=== PATIENT | female | born 1945 | race Caucasian/White ===

== ENCOUNTER 2018-10-09 08:38 | Observation (INO) ==
[2018-10-09] MEDS ORDERED: MIDAZOLAM HCL 1 MG/ML 2ML VIAL ONE (09:08)
[2018-10-09] MEDS ORDERED: NiCARDipine HCL INJ 2.5 MG/ML 10 ML AMP ONE (09:09)
[2018-10-09] MEDS ORDERED: fentaNYL citrate 100 MCG/2 ML VIAL ONE (09:09)
[2018-10-09] MEDS ORDERED: HEPARIN (PORCINE) 1000 UNIT/ML 10 ML (CATH LAB USE ONLY) ONE (09:09)
[2018-10-09] MEDS ORDERED: NITROGLYCERIN/D5W 100MCG/ML 20ML SYR ONE (09:09)
--- NOTE | 2018-10-09 09:16 | Pre Anesthesia Assessment ---
Date of Service October 09, 2018 Pre Sedation Assessment Vital Signs Temp Pulse Pulse Resp BP BP Pulse Ox 10/10/18 07:42 36.8 C 62 18 133/73 94 10/10/18 03:10 36.7 C 72 18 126/83 91 10/10/18 00:00 64 10/09/18 23:22 37.0 C 66 16 123/75 90 10/09/18 19:04 36.9 C 66 18 104/62 91 10/09/18 15:45 36.7 C 67 18 121/71 91 10/09/18 14:45 36.8 C 69 17 124/70 90 10/09/18 13:46 37.0 C 65 18 120/72 93 10/09/18 12:49 36.6 C 64 16 100/63 95 10/09/18 12:20 36.6 C 68 18 97/60 L 95 10/09/18 11:48 36.5 C 62 16 124/74 94 10/09/18 11:30 36.6 C 60 16 110/65 94 10/09/18 11:15 36.6 C 63 18 110/59 L 93 10/09/18 11:03 36.4 C L 60 16 119/60 94 10/09/18 11:00 36.6 C 62 18 113/65 92 10/09/18 10:45 62 Cardiovascular RRR, no murmur, no edema Respiratory normal respiratory effort, lungs clear to auscultation Pre-Sedation Airway Assessment Smoking Status: Current every day smoker Short, Thick Neck: No Oral Cavity: + WNL Mallampati Class: IV ASA: ASA3 NPO Status Date of Last Intake of Fluids: 10/08/18 Time of Last Intake of Fluids: 18:00 Date of Last Intake of Solid Food: 10/08/18 Time of Last Intake of Solid Foods: 18:00 Procedure Planning Contraindications for Sedation: none Current Medications Reviewed: Yes Notes The planned sedation has been discussed with the patient. Informed Consent was obtained. I have identified the patient, determined the appropriateness of sedation and have assessed the patient immediately prior to the procedure. All medicine(s) and interventions are by my order.
--- NOTE | 2018-10-09 09:16 | History & Physical Bridge Note ---
Date of Service October 09, 2018 History & Physical Bridge Note I have examined the patient, reviewed the History & Physical and in the interval since the performance of the History & Physical I have noted the following changes of clinical significance: no changes noted
--- NOTE | 2018-10-09 10:09 | Post Anesthesia Assessment ---
Date of Service October 09, 2018 Post Sedation Assessment Vital Signs Temp Pulse Pulse Resp BP BP Pulse Ox 10/10/18 07:42 36.8 C 62 18 133/73 94 10/10/18 03:10 36.7 C 72 18 126/83 91 10/10/18 00:00 64 10/09/18 23:22 37.0 C 66 16 123/75 90 10/09/18 19:04 36.9 C 66 18 104/62 91 10/09/18 15:45 36.7 C 67 18 121/71 91 10/09/18 14:45 36.8 C 69 17 124/70 90 10/09/18 13:46 37.0 C 65 18 120/72 93 10/09/18 12:49 36.6 C 64 16 100/63 95 10/09/18 12:20 36.6 C 68 18 97/60 L 95 10/09/18 11:48 36.5 C 62 16 124/74 94 10/09/18 11:30 36.6 C 60 16 110/65 94 10/09/18 11:15 36.6 C 63 18 110/59 L 93 10/09/18 11:03 36.4 C L 60 16 119/60 94 10/09/18 11:00 36.6 C 62 18 113/65 92 10/09/18 10:45 62 Discharge Sedation Level of Care: Fast Track Phase II Post Sedation Plan On clinical assessment, the patient appears to have tolerated the sedation without complications. Patient is recovering as anticipated. Patient will continue to be monitored by nursing and may be discharged when sedation discharge criteria are met per below protocol. Upon Completions of procedure and additional 15 minutes continue every 5 minute vital signs and the P.A.R. score; then discharge to a Phase I or Fast Track to Phase II per the following guidelines: * Discharge Patient to appropriate Phase II area if PAR is 8 or greater or return to pre- procedure baseline. The post - procedure orders will be as directed. * If PAR score is less than 8 or not return to pre-procedure baseline then patient will follow Phase I monitoring till PAR is reached for Phase II. The Phase I may be done in procedure room or may call to secure a Phase I area. * If naloxone or flumazenil are used for reversal, hold in Phase I for continued monitoring from when last reversal dose was given for a minimum of 60 minutes or longer pending the nurse and/or physician discretion of patient condition before discharge to Phase II. Please call the Sedation Physician to re-evaluate and complete post-note for discharge to Phase II area. Do NOT discharge from procedure sedation or Phase 1 until post- sedation evaluation note is complete by procedure /sedation MD Sedation Discharge Instructions to be given to the patient at discharge to home.
--- NOTE | 2018-10-09 10:21 | Cardiac Catheterization ---
Cardiac Cath Procedure Full Procedure Date October 09, 2018 Pre-Procedure Diagnosis Pre-Procedure Diagnosis: Angina AUC Score AUC Score: 7 Post-Procedure Diagnosis Post-Procedure Diagnosis: Severe CAD Procedure(s) Performed Procedure(s) Performed: Coronary Angiography and Left Heart Cath Manager Strategy & Account Anuj Naqvi DO Associate Accountant(s) Joe RTR Estimated Blood Loss Estimated Blood Loss: 5cc Summary of Findings 75% mid RCA 30% mid LAD bridging 40% proximal LPL 2 Hemodynamics Rest Ao:: 106/45/70 Final Ao: 114/44/72 LV: 111/8-6/6 Recommendations Recommendations: PCI without planned CABG Specimens Specimens: None Radiation Exposure (mGy) 783 Contrast (mls) 45 Fluids (cc crystalloids) Fluids (cc crystalloids): 50cc Nss Anesthesia Moderate sedation, start 0931, End 1007. Sedation monitor Kesha JO. Procedural Complication(s) None Disposition patient remained in [facility] for PCI with Dr. 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 Cardiac Status Clinical evaluation leading to the procedure CAD Presenation: Unstable angina Anginal Classification: CCS III Heart Failure: No Imaging Studies Past 6 Months: Yes Stress Studies Past 6 Months: No Coronary Anatomy Dominant: Right Left Main (% Stenosis): Normal LAD (% Stenosis): Mid (30% bridging) D1 (% Stenosis): Normal D2 (% Stenosis): Ostial (20%) D3 (% Stenosis): Normal Circumflex (% Stenosis): Normal OM1 (% Stenosis): Normal OM2 (% Stenosis): Normal L PL1 (% Stenosis): Normal L PL2 (% Stenosis): Proximal (40%) RCA (% Stenosis): Proximal (20%) and Distal (30%) R PDA (% Stenosis): Normal R PL1 (% Stenosis): Normal AM (% Stenosis): Normal Diagnostic Physicians Name: Anuj Naqvi DO Status: Elective Closure Device Percutaneous Entry Location: Radial Closure Device: Radial Band Recommendations: PCI without planned CABG Intraprocedure Events Significant Disection: No Perforation: No
[2018-10-09] MEDS ORDERED: CLOPIDOGREL BISULFATE 300 MG TAB ONE (10:30)
--- NOTE | 2018-10-09 10:33 | Post Anesthesia Assessment ---
Date of Service October 09, 2018 Post Sedation Assessment Vital Signs Temp Pulse Resp BP Pulse Ox 10/09/18 08:50 36.6 C 71 16 148/59 H 95 Recovery Score Activity: Moves 4 extremities Respiration: Deep Breath/Cough Circulation: +/-20% PreAnes Value Consciousness: Fully Awake Oxygen Saturation: O2 needed for >90% Discharge Sedation Level of Care: Fast Track Phase II Post Sedation Plan On clinical assessment, the patient appears to have tolerated the sedation without complications. Patient is recovering as anticipated. Patient will continue to be monitored by nursing and may be discharged when sedation discharge criteria are met per below protocol. Upon Completions of procedure and additional 15 minutes continue every 5 minute vital signs and the P.A.R. score; then discharge to a Phase I or Fast Track to Phase II per the following guidelines: * Discharge Patient to appropriate Phase II area if PAR is 8 or greater or return to pre- procedure baseline. The post - procedure orders will be as directed. * If PAR score is less than 8 or not return to pre-procedure baseline then patient will follow Phase I monitoring till PAR is reached for Phase II. The Phase I may be done in procedure room or may call to secure a Phase I area. * If naloxone or flumazenil are used for reversal, hold in Phase I for continued monitoring from when last reversal dose was given for a minimum of 60 minutes or longer pending the nurse and/or physician discretion of patient condition before discharge to Phase II. Please call the Sedation Physician to re-evaluate and complete post-note for discharge to Phase II area. Do NOT discharge from procedure sedation or Phase 1 until post- sedation evaluation note is complete by procedure /sedation MD Sedation Discharge Instructions to be given to the patient at discharge to home.
[2018-10-09] MEDS ORDERED: ACETAMINOPHEN 325 MG TAB PO PRN (10:42)
[2018-10-09] MEDS ORDERED: ONDANSETRON INJ 2 MG/ML 2 ML VIAL IV PRN (10:42)
--- NOTE | 2018-10-09 10:42 | Cardiac Catheterization ---
Cardiac Cath Procedure Full Procedure Date October 09, 2018 Pre-Procedure Diagnosis Pre-Procedure Diagnosis: Angina AUC Score AUC Score: 7 Post-Procedure Diagnosis Post-Procedure Diagnosis: Severe CAD and Successful PCI Procedure(s) Performed Procedure(s) Performed: Coronary Angiography and Drug Eluting Stent Video Game Programmer Phong Marquez MD Extension Division Director(s) Joe RTSavita Estimated Blood Loss Estimated Blood Loss: 10 Medication(s) Medication(s): Clopidogrel, Fentanyl, Heparin, Nitroglycerin and Versed Summary of Findings Indication: Refractory angina Access: 6 Fr right radial artery Catheters: JR4 guide Findings: For full details of patient's coronary angiography please cath report dictated by Dr. Naqvi. Briefly, patient found to have severe single vessel disease with a focal 75% stenosis in the mid RCA. Decision to proceed with PCI. -- PCI -- Antithrombotic therapy: Heparin, clopidogrel Procedure: RCA cannulated with JR4 guide BMW wire passed across lesion into distal vessel Mid RCA lesion predilated with 2.5 compliant balloon Dilated lesion stented with 2.75 x 12 mm Xience Tracy Stent post-dilated with stent balloon IC vasodilators administered for spasm Post procedure SHINE 3 flow, stent well expanded with minimal residual stenosis and no apparent cardiac complications. Arterial Closure: TR band Summary: 1. Successful PCI of mid RCA with single drug-eluting stent (2.75 x 12 mm Xience Tracy). Recommendations: To PCU for continued monitoring Loaded with clopidogrel 600 mg in photo lab specialist Continue aspirin/clopidogrel and anticoagulation with Coumadin for 1 week. Then can drop aspirin to continue Coumadin, clopidogrel for at least 6 months. 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: Press Catcher Cardiac Status Clinical evaluation leading to the procedure CAD Presenation: Stable angina Anginal Classification: CCS III Heart Failure: No Cardiogenic Shock within 24 Hours: No Cardiac Arrest within 24 Hours: No Imaging Studies Past 6 Months: Yes Stress Studies Past 6 Months: Yes Stress Echocardiogram: Yes - Negative Diagnostic Physicians Name: Phong Marquez MD Status: Elective Closure Device Percutaneous Entry Location: Radial Closure Device: Radial Band Recommendations: PCI without planned CABG PCI Indication: Angina despite med therapy Lesion Segment Name: mid RCA Culprit Artery: Yes Stenosis Prior to Rx (%): 75 Chronic Total Occlusion: No IVUS: No FFR: No Pre-Procedure SHINE Flow: 3 Previously Treated Lesion: No Lesion Complexity: Non-High/Non-C Lesion Length (mm): 10 Thrombus Present: No Bifurcation Lesion: No Guidewire Across Lesion: Stenosis Post-Procedure (%): 0 Post-Procedure SHINE Flow: 3 Devices(s) Deployed: Yes Yes Intraprocedure Events Significant Disection: No Perforation: No
[2018-10-09] MEDS ORDERED: SODIUM CHLORIDE 0.9% 1000ML 1,000 ML IV SCH (10:45)
[2018-10-09] MEDS ORDERED: NITROGLYCERIN SL 0.4 MG/TAB TAB SL PRN (11:29)
[2018-10-09] MEDS ORDERED: WARFARIN SOD 5 MG TAB PO SCH ×2 (16:00→21:00)
[2018-10-09] MEDS: ADVAIR 230/21 INH SCH (19:15)
[2018-10-09] MEDS ORDERED: MONTELUKAST SODIUM 10 MG TABLET PO SCH (21:00)
[2018-10-09] MEDS ORDERED: ATORVASTATIN 20 MG TAB PO SCH (21:00)
[2018-10-09] MEDS ORDERED: METOPROLOL SUCC 25MG EXT REL TAB PO SCH (21:00)
[2018-10-10 06:36] LABS: Basophils # (auto) 0.01 K/uL (0-0.2); Basophils % (auto) 0.1 %; Eosinophils % (auto) 1.3 %; Hematocrit (blood only) 42.4 % (37-47); Hemoglobin 14.2 g/dL (12.0-16.0); Immature Granulocytes # (auto) 0.02 K/uL (0.00-0.02); Immature Granulocytes % (auto) 0.3 %; Mean Corpuscular Hgb Conc 33.5 g/dL (32-36); Mean Corpuscular Volume 88.5 fL (80-100); Mean Platelet Volume 11.8 fL (7.4-10.4); Monocytes # (auto) 0.52 K/uL (0.11-0.59); Monocytes % (auto) 6.9 %; Neutrophils # (auto) 4.14 K/uL (1.4-6.5); Neutrophils % (auto) 55.4 %; Platelet Count 128 K/uL (130-400); RDW Coefficient of Variation 13.6 % (11.5-14.5); Red Blood Count 4.79 M/uL (4.2-5.4); White Blood Count 7.49 K/uL (4.8-10.8)
[2018-10-10 07:08] LABS: BUN Creatinine Ratio 17.3 (10-20); Calcium 8.6 mg/dl (8.5-10.1); Creatinine Clr Calc Pharmacy 63.5 ml/min; Est GFR (African American) 77.7; Potassium 3.8 mmol/L (3.5-5.1)
[2018-10-10 07:43] VITALS: BP 133/73; TEMP 98.2; O2SAT 94
[2018-10-10] MEDS: ADVAIR 230/21 INH SCH (07:52)
[2018-10-10] MEDS ORDERED: ASPIRIN 81 MG ECTAB PO SCH (09:00)
[2018-10-10] MEDS ORDERED: AMLODIPINE BESYLATE 5 MG TAB PO SCH (09:00)
[2018-10-10] MEDS ORDERED: CLOPIDOGREL BISULFATE 75 MG TAB PO SCH (09:00)
[2018-10-10] MEDS ORDERED: METOPROLOL SUCC 50MG EXT REL TAB PO SCH (09:00)
[2018-10-10] MEDS ORDERED: METOPROLOL SUCC 25MG EXT REL TAB PO SCH (09:00)
--- NOTE | 2018-10-10 09:16 | Cardiology Progress Note ---
Date of Service October 10, 2018 Assessment & Plan (1) CAD (coronary artery disease), [place] coronary artery: No recurrent chest discomfort overnight. Drug-eluting stent implanted to the right coronary artery without complication. (2) S/P right coronary artery (RCA) stent placement: Patient will continue aspirin, Plavix, and warfarin for 1 week. Aspirin will be then discontinued and she will continue Plavix plus warfarin. Prescription for Plavix sent to [facility] in [place]. Instructed to take 5 mg of warfarin today and tomorrow then resume her normal schedule. Follow-up with the anticoagulation clinic as scheduled. Post catheterization activity restrictions discussed at length. Patient voiced understanding and agreement. (3) Atrial fibrillation: Remains in sinus rhythm on telemetry. Restart warfarin as noted above. (4) Tobacco abuse: Smoking cessation advised. Subjective Patient seen and examined at the bedside. Feeling well from a cardiovascular perspective. No chest discomfort or unusual shortness of breath. Remains in sinus rhythm on telemetry. Mild ecchymosis of her right anterior wrist noted. No signs/symptoms of GI/ blood loss. Denies orthopnea, PND, lower extremity edema. Requesting discharge if possible. Prefers medications be sent to the [facility] in [place]. Offers no concerns/complaints at this time. Review of Systems Review of Systems: All systems reviewed & are unremarkable except as noted in HPI & below Physical Exam Physical Exam: General: NAD, AAO x3, well nourished. HEENT: Normocephalic. Atraumatic. Conjunctiva pink, no scleral icterus. Neck: No carotid bruits, the carotid upstrokes are brisk. No JVD. No HJR Heart: Regular normal S-1 and S-2 no S-3 or S-4 gallop. No murmurs or rub appreciated. PMI is not displaced. No RV heave. Lungs: Clear bilateral without rales , rhonchi, or wheeze. Abdomen: Normal bowel sounds. Soft. Nontender. No masses or organomegaly. No abdominal bruits. Extremities: 2 cm area of right anterior wrist ecchymosis. Right radial pulse is palpable. No hematoma. No clubbing, cyanosis, or edema. Pulses: Dorsa lis pedis =2/4, posterior tibial=2/4. Neuro: Cranial nerves grossly intact. No focal motor deficit. Results & Data Vital Signs (Past 12 Hours) Vital Signs Temp Pulse Pulse Resp BP BP Pulse Ox 10/10/18 07:42 36.8 C 62 18 133/73 94 10/10/18 03:10 36.7 C 72 18 126/83 91 10/10/18 00:00 64 10/09/18 23:22 37.0 C 66 16 123/75 90 Laboratory Results Laboratory Results - last 24 hr 10/09/18 10/10/18 10/10/18 09:29 06:22 06:22 WBC 7.49 RBC 4.79 Hgb 14.2 Hct 42.4 MCV 88.5 MCH 29.6 MCHC 33.5 RDW Std Deviation 44.0 RDW Coeff of Anais 13.6 Plt Count 128 L MPV 11.8 H Immature Gran % (Auto) 0.3 Neut % (Auto) 55.4 Lymph % (Auto) 36.0 Lawrence % (Auto) 6.9 Eos % (Auto) 1.3 Baso % (Auto) 0.1 Immature Gran # (Auto) 0.02 Neut # (Auto) 4.14 Lymph # (Auto) 2.70 Lawrence # (Auto) 0.52 Eos # (Auto) 0.10 Baso # (Auto) 0.01 Activ Coag Time Kaolin 312 H Sodium 142 Potassium 3.8 Chloride 108 H Carbon Dioxide 30 Anion Gap 4.0 BUN 15 Creatinine 0.85 Est Cr Clr Drug Dosing 63.5 Est GFR ( Amer) 77.7 Est GFR (Non-Af Amer) 67.0 BUN/Creatinine Ratio 17.3 Glucose 92 Calcium 8.6 (1) CAD (coronary artery disease), [place] coronary artery [place] vs. transplanted heart: [place] heart Associated angina: with unstable angina Qualified Code(s): I25.110 - Atherosclerotic heart disease of [place] coronary artery with unstable angina pectoris (2) Atrial fibrillation Atrial fibrillation type: paroxysmal Qualified Code(s): I48.0 - Paroxysmal atrial fibrillation
--- NOTE | 2018-10-10 09:22 | Discharge Summary ---
Date of Service October 10, 2018 Admission HPI Patient presented to outpatient clinic with recurrent chest discomfort. She used 3 sublingual nitroglycerin with resolution of pain. She has had several episodes of angina over the past 12 months. Lexiscan nuclear stress test performed December 2017 negative for inducible ischemia. She is referred for diagnostic catheterization for further evaluation. Admission Exam Per Admitting Provider General: NAD, AAO x3, well nourished. HEENT: Normocephalic. Atraumatic. Conjunctiva pink, no scleral icterus. Neck: No carotid bruits, the carotid upstrokes are brisk. No JVD. No HJR Heart: Regular normal S-1 and S-2 no S-3 or S-4 gallop. No murmurs or rub appreciated. PMI is not displaced. No RV heave. Lungs: Clear bilateral without rales , rhonchi, or wheeze. Abdomen: Normal bowel sounds. Soft. Nontender. No masses or organomegaly. No abdominal bruits. Extremities: No clubbing, cyanosis, or edema. Pulses: radial=2/4, Dorsalis pedis =2/4, posterior tibial=2/4. Neuro: Cranial nerves grossly intact. No focal motor deficit. Principal Diagnosis Principal Diagnosis Unstable angina. S/p AME to RCA. Paroxysmal atrial fibrillation. Discharge Exam [facility] Mallampati Class: IV Respiratory normal respiratory effort, lungs clear to auscultation Cardiovascular RRR, no murmur, no edema Discharge Data Allergies Allergy/AdvReac Type Severity Reaction Status Date / Time valsartan Allergy Severe Edema Verified 06/16/12 16:28 face/lips/tongue. NAI Inhibitors Allergy Unknown Cough. Verified 06/16/12 16:28 nickel Allergy Unknown Rash. Verified 06/16/12 16:28 FLUARIX Allergy Unknown Unknown. Uncoded 06/16/12 16:28 Consultations 10/09/18 10:45 Consult Cardiac Rehabilitation Routine Procedures Performed Operation Date: 10/09/18 09:30 Actual Procedures p Cath, Left with Cors and Vent - DO kyle Ponce Cineradiography w/Routine Exam - DO kyle Ponce Drug Eluting Stent SGl Vessel - Enrrique Marquez MD Ordered Studies 10/09/18 07:14 CL Cath Imgs for PACS use only Stat Hospital Course (1) S/P right coronary artery (RCA) stent placement: Continue aspirin, Plavix, and warfarin for 1 week, then discontinue aspirin. Continue warfarin plus Plavix thereafter. (2) Atrial fibrillation: Patient remained in sinus rhythm during hospitalization. Warfarin restarted. Follow-up with anticoagulation clinic as scheduled. Total Time Total Time Spent Total Time Spent (In Minutes): 35 Discharge Plan Discharge Items Patient Disposition: Home - Self-Care Reason For Visit: RCA PCI Discharge Diagnosis: Coronary artery disease status post drug-eluting stent implantation to the right coronary artery. Condition: Good Discharge Goals: Improve disease control Activity: Per 'Additional Instructions' section Non-emergency contact: Primary Care Provider and Metal Ceiling Builder Call non-emergency contact if: your pain is not controlled and your pain is unusual for you Follow-up/Referrals: Khoa Hui MD [Primary Care Provider] - nAuj Naqvi DO [Metal Ceiling Builder] - Diet: Heart Healthy Addtl Provider Instructions: ACTIVITY RECOMMENDATIONS: Excess manipulation of the wrist should be avoided for the next 24-48 hours. * No lifting over 2 pounds (approximately a 1/2 gallon of milk) with the utilized arm for 24 hours. * No strenuous activity such as bowling or tennis for 3 days. * Keep the site of the procedure covered with a bandage for 24 hours. *You may shower the day after the procedure. Do not take a tub bath or submerge the puncture site in water for the next 3 days. *Do not operate any motorized equipment for 3 days. SPECIAL CARE INSTRUCTIONS: The site may be slightly bruised and sore following your procedure. Should any of the following occur, contact the Dr. who performed your procedure. 1. Redness/inflammation, swelling, chills, or fever, or colored drainage at procedure site within 3-7 days after your procedure. 2. Coldness, discoloration, ongoing numbness, severe pain, or swelling. Expect mild tingling of hand and tenderness at the puncture site for up to three days. If this persists beyond three days, or other symptoms develop, notify the Dr. who performed your procedure. BLEEDING: If the procedure site on your wrist begins to bleed, do not panic 1. Place 1 or 2 fingers firmly just slightly above the insertion site to stop the bleeding. You may be able to feel your pulse as you hold pressure. 2. Lift your finger after 5 minutes to see if the bleeding has stopped. 3. Once the bleeding has stopped, gently wipe the wrist area clean with a bandage. * If the bleeding from your wrist does not stop after 10 minutes, or if there is a large amount of bleeding or spurting, call 911 (do not drive yourself to the hospital). SKIN IRRITATION: * You may experience some redness and/or swelling in the area where radiation was administered. If any skin irritation occurs, please contact your family physician. FOLLOW UP VISIT: Keep any scheduled doctor appointments. Prescriptions: New clopidogrel 75 mg Tablet 75 mg PO QAM Qty: 34 RF: 0 Continued Aspirin Enteric Coated (Ecotrin Or Generic) 81 MG tablet 81 mg PO DAILY Qty: 0 RF: 0 Atorvastatin (Atorvastatin Calcium) 20 MG tablet 20 mg PO PM Qty: 30 RF: 3 Nitroglycerin (Nitrostat) 0.4 MG/1 TAB SUBLING TAB 0.4 mg Sublingual PRN PRN (Reason: Chest Pain) Qty: 30 RF: 0 Amlodipine Besylate 5 MG tablet 5 mg PO QAM Qty: 0 RF: 0 FLUTICASONE-SALMETEROL 230/21 MCG (ADVAIR HFA 230/21 MCG) 1 AER AER 2 puff Inhalation BID Qty: 0 RF: 0 Metoprolol Succ (Toprol Xl) (Toprol-Xl) 50 MG GNIVV-XVA-HPL 75 mg PO QAM Qty: 30 RF: 0 Warfarin Sod (Coumadin) 5 MG tablet 2.5 - 5 mg PO UD Qty: 0 RF: 0 montelukast 10 mg Tablet 10 mg PO PM RF: 0 furosemide 20 mg Tablet 20 mg PO DAILY RF: 0 Stand-Alone Forms: [facility] Discharge Orders: Discharge Order (Routine); Ordered 10/10/18 Ordered By: Anuj Naqvi Admission Data Admit Date/Time: 10/09/18 10:09 Attending Provider: Anuj Naqvi Admit Provider: Anuj Naqvi Primary Care Provider: Khoa Hui Service: Telemetry Other Pending Studies at Discharge: No
[2018-10-10 10:02] VITALS: PULSE 71
== END 2018-10-10 10:44 | disposition home or self-care (01) ==
LOC: CC 08:38 → 2S 08:38

== ENCOUNTER 2018-10-18 13:06 | Inpatient (IN) ==
--- OUTSIDE RECORDS SUMMARY | 2018-10-18 13:10 | External Medical Summary | Continuity of Care Document ---
:1945 Author Name Ajit Mccall, Provider Address Unavailable Unavailable , Care Team Providers Name Role Phone Phong Marquez [email or web address] PCP, UNKNOWN Unavailable Unavailable Problems Active medical history not documented Allergies and Adverse Reactions Allergy history not documented Medications Medications not documented Procedures Procedures not documented Immunizations Immunizations not documented Plan of Treatment Planned Observations Planned Goals not documented Results No Known Results Results not documented
[2018-10-18] MEDS ORDERED: dilTIAZem HCl 5 MG/ML 5 ML VIAL IV ONE (13:14)
[2018-10-18] MEDS ORDERED: dilTIAZem HCl 125 MG in DEXTROSE 5% 100 ML IV SCH (13:15)
[2018-10-18] MEDS ORDERED: dilTIAZem HCl 5 MG/ML 5 ML VIAL IV STA (13:15)
[2018-10-18] MEDS ORDERED: SODIUM CHLORIDE 0.9% 1000ML 1,000 ML IV SCH (13:15)
[2018-10-18] MEDS ORDERED: LORazepam 2 MG/4 ML VIAL ONE (13:21)
[2018-10-18 13:29] LABS: Basophils # (auto) 0.01 K/uL (0-0.2); Basophils % (auto) 0.1 %; Eosinophils # (auto) 0.06 K/uL (0-0.5); Eosinophils % (auto) 0.7 %; Hematocrit (blood only) 40.9 % (37-47); Hemoglobin 13.4 g/dL (12.0-16.0); Immature Granulocytes # (auto) 0.01 K/uL (0.00-0.02); Immature Granulocytes % (auto) 0.1 %; Lymphocytes # (auto) 2.04 K/uL (1.2-3.4); Lymphocytes % (auto) 25.3 %; Mean Corpuscular Hgb Conc 32.8 g/dL (32-36); Mean Corpuscular Volume 88.1 fL (80-100); Monocytes # (auto) 0.81 K/uL (0.11-0.59); Neutrophils # (auto) 5.13 K/uL (1.4-6.5); Neutrophils % (auto) 63.8 %; Platelet Count 156 K/uL (130-400); RDW Coefficient of Variation 13.7 % (11.5-14.5); RDW Standard Deviation 44.5 fL (36.4-46.3); Red Blood Count 4.64 M/uL (4.2-5.4); White Blood Count 8.06 K/uL (4.8-10.8)
--- NOTE | 2018-10-18 13:41 | XRay Report ---
XR chest 1V portable CLINICAL HISTORY: Chest Pain dyspnea COMPARISON STUDY: 05/15/2015 FINDINGS: The bones soft tissues and hemidiaphragms are normal. The cardiomediastinal silhouette is n ormal. The lungs are clear. The pulmonary vasculature is normal. IMPRESSION: Negative chest. The above report was generated using voice recognition software. It may contain grammatical, syntax or spelling errors. Electronically signed by: Nicola Latham M.D. 10/18/2018 1:40 PM
[2018-10-18 13:44] LABS: INR 1.8 (0.9-1.1); Partial Thromboplastin Ratio 1.2; Partial Thromboplastin Time 32.8 Seconds (21.0-31.0); Prothrombin Time 17.3 Seconds (9.0-12.0)
[2018-10-18 13:45] LABS: BUN Creatinine Ratio 21.9 (10-20); Blood Urea Nitrogen 21 mg/dl (7-18); Carbon Dioxide 26 mmol/L (21-32); Chloride 103 mmol/L (98-107); Creatinine Clr Calc Pharmacy 55.7 ml/min; Est GFR (African American) 67.1; Est GFR (Non-African American) 57.9; Glucose 115 mg/dl (70-99); Potassium 3.7 mmol/L (3.5-5.1); Sodium 138 mmol/L (136-145)
[2018-10-18 13:54] LABS: Troponin I < 0.015 ng/ml (0-0.045)
[2018-10-18] MEDS ORDERED: OPTIRAY 320 125ml IV PRN (13:54)
--- NOTE | 2018-10-18 14:16 | CT Scan Report ---
CT ANGIOGRAPHY OF THE CHEST, PULMONARY EMBOLUS PROTOCOL CLINICAL HISTORY: Shortness of breath. COMPARISON STUDY: Chest CT April 27, 2008. Chest radiograph performed earlier today. TECHNIQUE: Following IV administration of 120 mL of Optiray-320, helical axial images of the chest we re obtained utilizing the pulmonary embolus protocol. Maximal intensity projections and sagittal and coronal reformats were viewed on an independent 3D workstation. IV contrast was administered withou t complication. Automated exposure control was utilized for the study. A dose lowering technique wa s utilized adhering to the principles of ALARA. CT DOSE: 337.08 mGy.cm FINDINGS: No pulmonary emboli are identified. There is no evidence for thoracic aortic dissection. T here is moderate plaque within the thoracic aorta. The heart is mildly enlarged. There is no pericard ial effusion. Central airways are patent. Severe emphysema is noted. No consolidation to suggest pneu monia. Subpleural opacities reflect atelectasis. Bony thorax is unremarkable. A few hypodense hepatic lesions are suboptimally assessed on this exam but favor cysts. There is a small hiatal hernia. IMPRESSION: 1. No pulmonary emboli identified. 2. Severe emphysema. No consolidation to suggest pneumonia. Electronically signed by: Félix Edwards M.D. 10/18/2018 2:15 PM
[2018-10-18 14:17] LABS: iSTAT Hemoglobin 13.6 g/dl (12.0-16.0); iSTAT Ionized Calcium 1.04 mmol/l (1.12-1.32); iSTAT Potassium 3.7 mEq/L (3.3-5.0)
[2018-10-18 14:21] LABS: Magnesium 1.8 mg/dl (1.8-2.4)
--- NOTE | 2018-10-18 14:26 | Cardiology Consultation ---
Date of Consultation October 18, 2018 Assessment & Plan (1) Atrial fibrillation with rapid ventricular response: Patient presented to the emergency room with recurrent chest discomfort and atrial fibrillation with rapid ventricular response. Initially cardioverted however remains in atrial fibrillation. Rate control has improved currently with heart rates ranging from 100 to 115 bpm. She remains hypotensive with IV fluid infusing. She is mentating appropriately. Recommend discontinuation of metoprolol and initiation of sotalol loading. Duration of atrial fibrillation less than 6 hours at this time. Intravenous heparin ordered. INR is mildly subtherapeutic. Search for alternative causes of hypotension in progress including blood cultures, and urinalysis. Suspect mild volume depletion. Continue intravenous hydration. She will be admitted to the intensive care unit for close observation. 40 minutes critical care time spent evaluating patient, formulating plan of care, instituting orders, and discussion of case with consultants and family members at bedside. (2) CAD (coronary artery disease), [place] coronary artery: Recurrent angina noted associated with atrial fibrillation and rapid ventricular response. No significant ischemic ECG changes or ST elevations to suggest stent thrombosis. Continue Plavix uninterrupted for minimum of 6 months post drug-eluting stent implantation. Continue intravenous heparin until INR is therapeutic. Cardiac enzymes will be trended x3 sets. Bedside 2D transthoracic echocardiogram pending at this time. (3) S/P right coronary artery (RCA) stent placement: (4) Hypotension: History of Present Illness Reason for Consultation: Paroxysmal atrial fibrillation, hypertension, coronary artery disease with recent drug-eluting stent implantation to the right coronary artery Requesting Physician: Dr. Keane Attending Physician: Dr. Umanzor History of Present Illness 73-year-old female presented to the emergency department with chest discomfort. Patient states chest pain came on suddenly. Described as a heaviness and tightness. The intensity of the pain became severe. There was associated shortness of breath and lightheadedness. EMS was summoned and she was brought to the ER. Noted to be atrial fibrillation with rapid ventricular response heart rates up to 150 bpm. Due to hypotension and urgent/emergent external direct-current cardioversion was performed. Her rate improved to approximately 100 to 110 bpm however she remained hypotensive. She admits to over exertion over the past few days. Her daughter recently underwent hip replacement and she has been helping take care of her. Patient seen and examined at the bedside. Remains mildly hypotensive however mentating appropriately. Denies chest pain or palpitations currently. Recent history significant for drug-eluting stent implantation to the right coronary artery on October 09. She has been compliant with medication since that time. Unfortunately continues to smoke cigarettes. Denies any fevers, chills, frequency, urgency, or dysuria. No cough or sputum production. She offers no other concerns/complaints at this time. Allergies Allergy/AdvReac Type Severity Reaction Status Date / Time valsartan Allergy Severe Edema Verified 10/18/18 14:07 face/lips/tongue. NAI Inhibitors Allergy Unknown Cough. Verified 10/18/18 14:07 nickel Allergy Unknown Rash. Verified 10/18/18 14:07 FLUARIX Allergy Unknown Unknown. Uncoded 10/18/18 14:07 Home Medications Home Medications Medication Instructions Recorded Confirmed Type furosemide 20 mg PO DAILY 10/08/18 10/18/18 History montelukast 10 mg PO PM 10/08/18 10/18/18 History clopidogrel 75 mg PO QAM #34 tab 10/10/18 10/18/18 Rx amlodipine 5 mg PO DAILY 10/18/18 10/18/18 History atorvastatin 20 mg PO HS 10/18/18 10/18/18 History fluticasone propion-salmeterol 2 puff INHALATION BID 10/18/18 10/18/18 History [Advair HFA] ipratropium-albuterol [Combivent 1 puff INHALATION QID PRN 10/18/18 10/18/18 History Respimat] metoprolol succinate 25 mg PO PM 10/18/18 10/18/18 History metoprolol succinate [Toprol XL] 50 mg PO DAILY 10/18/18 10/18/18 History warfarin 2.5 mg PO SUMOWETHFR@1600 10/18/18 10/18/18 History warfarin 5 mg PO TUSA@1600 10/18/18 10/18/18 History Patient History Medical History Venous insufficiency (Chronic) COPD (chronic obstructive pulmonary disease) (Chronic) Prediabetes (Chronic) Hyperlipidemia (Chronic) Tobacco abuse (Chronic) CAD (coronary artery disease), [place] coronary artery (Chronic) Emphysema of lung (Chronic) Hypertension (Chronic) Surgical History S/P right coronary artery (RCA) stent placement (Chronic) H/O: hysterectomy (Chronic) S/P appendectomy (Chronic) Family History Other Colon cancer Social History Preferred Language: Estonian Communication Ability: Effective Cigar Bander Hand Required: No Beliefs That Will Affect Care: None Current Living Situation: Alone Other Information That Helps Us Care for You: No Feels Safe at Home: Yes Safety Concerns: Feels Safe At This Time Smoking Status: Current every day smoker Tobacco Type: cigarettes Cigarettes Per Day: 3-5 Do You Dip or Chew Tobacco: No Second Hand Exposure: No Tobacco Cessation Education Requested by Patient: No Hx Alcohol Use: Yes Alcohol type: wine Alcohol Intake Frequency Comment: 1-2 glasses of wine 3-5 days per week Hx Substance Use: No Review of Systems Review of Systems: All systems reviewed & are unremarkable except as noted in HPI & below Physical Exam Physical Exam: General: NAD, AAO x3, well nourished. HEENT: Normocephalic. Atraumatic. Conjunctiva pink, no scleral icterus. Neck: No carotid bruits, the carotid upstrokes are brisk. No JVD. No HJR Heart: Irregular, borderline tachycardic, normal S-1 and S-2 no S-3 or S-4 gallop. No murmurs or rub appreciated. PMI is not displaced. No RV heave. Lungs: Clear bilateral without rales , rhonchi, or wheeze. Abdomen: Normal bowel sounds. Soft. Nontender. No masses or organomegaly. No abdominal bruits. Extremities: No clubbing, cyanosis, or edema. Pulses: radial=2/4, Dorsalis pedis =2/4, posterior tibial=2/4. Neuro: Cranial nerves grossly intact. No focal motor deficit. Results & Data Vital Signs (Past 12 Hours) Vital Signs Temp Pulse Resp BP BP BP Pulse Ox 10/18/18 14:04 112 H 76/59 L 93 10/18/18 14:01 102 H 88/54 L 95 10/18/18 13:56 117 H 88/49 L 94 10/18/18 13:42 127 H 95/68 L 96 10/18/18 13:41 122 H 72/56 L 96 10/18/18 13:40 119 H 93 10/18/18 13:37 92/50 L 86/44 L 10/18/18 13:35 112 H 66/41 L 96 10/18/18 13:32 125 H 95 10/18/18 13:31 125 H 88/47 L 95 10/18/18 13:30 113 H 96 10/18/18 13:29 126 H 81/57 L 96 10/18/18 13:26 121 H 73/51 L 96 10/18/18 13:25 129 H 94 10/18/18 13:23 132 H 94 10/18/18 13:22 135 H 90/43 L 94 10/18/18 13:19 94 10/18/18 13:16 36.5 C 141 H 24 99/55 L 94 Laboratory Results Laboratory Results - last 24 hr 10/18/18 10/18/18 10/18/18 13:18 13:18 13:18 WBC 8.06 RBC 4.64 Hgb 13.4 POC Hgb Hct 40.9 POC Hct MCV 88.1 MCH 28.9 MCHC 32.8 RDW Std Deviation 44.5 RDW Coeff of Anais 13.7 Plt Count 156 MPV 12.0 H Immature Gran % (Auto) 0.1 Neut % (Auto) 63.8 Lymph % (Auto) 25.3 [place] % (Auto) 10.0 Eos % (Auto) 0.7 Baso % (Auto) 0.1 Immature Gran # (Auto) 0.01 Neut # (Auto) 5.13 Lymph # (Auto) 2.04 [place] # (Auto) 0.81 H Eos # (Auto) 0.06 Baso # (Auto) 0.01 PT 17.3 H INR 1.8 H APTT 32.8 H PTT Ratio 1.2 POC Sodium Sodium 138 POC Potassium Potassium 3.7 POC Chloride Chloride 103 Carbon Dioxide 26 POC Total CO2 Anion Gap 9.0 POC Anion Gap POC BUN BUN 21 H Creatinine 0.96 POC Creatinine Est Cr Clr Drug Dosing 55.7 Est GFR ( Amer) 67.1 Est GFR (Non-Af Amer) 57.9 BUN/Creatinine Ratio 21.9 H Glucose 115 H POC Glucose (other) Calcium 9.0 POC Ioniz Calcium Estela Magnesium POC Troponin I Troponin I < 0.015 Lipase 121 10/18/18 10/18/18 10/18/18 13:18 13:20 13:21 WBC RBC Hgb POC Hgb 13.6 Hct POC Hct 40 MCV MCH MCHC RDW Std Deviation RDW Coeff of Anais Plt Count MPV Immature Gran % (Auto) Neut % (Auto) Lymph % (Auto) [place] % (Auto) Eos % (Auto) Baso % (Auto) Immature Gran # (Auto) Neut # (Auto) Lymph # (Auto) [place] # (Auto) Eos # (Auto) Baso # (Auto) PT INR APTT PTT Ratio POC Sodium 139 Sodium POC Potassium 3.7 Potassium POC Chloride 98 L Chloride Carbon Dioxide POC Total CO2 26 Anion Gap POC Anion Gap 19.0 POC BUN 20 H BUN Creatinine POC Creatinine 1.0 Est Cr Clr Drug Dosing Est GFR ( Amer) Est GFR (Non-Af Amer) BUN/Creatinine Ratio Glucose POC Glucose (other) 117 H Calcium POC Ioniz Calcium Estela 1.04 L Magnesium 1.8 POC Troponin I < 0.03 Troponin I Lipase (1) CAD (coronary artery disease), [place] coronary artery Associated angina: with unstable angina [place] vs. transplanted heart: [place] heart Qualified Code(s): I25.110 - Atherosclerotic heart disease of [place] coronary artery with unstable angina pectoris (2) Hypotension Hypotension type: unspecified hypotension type Qualified Code(s): I95.9 - Hypotension, unspecified
[2018-10-18] MEDS ORDERED: HEPARIN 25000 UNIT/500 ML D5W IV ONE (14:28)
[2018-10-18] MEDS ORDERED: HEPARIN SOD 5,000 UNIT/0.5 ML VIAL ONE (14:29)
[2018-10-18] MEDS ORDERED: HEPARIN SOD (PORCINE) 1000 UNIT/ML 10 ML VIAL ONE ×2 (14:39→14:49)
--- NOTE | 2018-10-18 15:28 | History & Physical Report ---
Date of Service October 18, 2018 Assessment & Plan (1) Atrial fibrillation with rapid ventricular response: This is a 73yo F with a PMH of paroxysmal A Fib, CAD (s/p recent RCA stent on 10/09/18), HTN, tobacco use disorder, COPD and other medical problems listed below who presents after developing chest pain at home today around 11 am and was found to have A Fib with RVR. -Found to be hypotensive with SBP in 80s-90s with atrial fibrillation with RVR with heart rate ranging from 120-160 -Underwent urgent cardioversion by ED provider and HR improved to low 100s, still in A Fib -Remained hypotensive with slow improvement to BP with IV fluids -Dr. Naqvi involved with care and planning to discontinue Toprol and initiate Sotalol during admission -IV heparin initiated, INR subtherapeutic at 1.8 on coumadin. Will d/c heparin once INR therapeutic -Monitor on telemetry, trend troponin, stat echo with normal systolic function, EF:65-70% -UA and blood cultures pending, TSH, K and Mg wnl -Will be monitored in ICU overnight (2) Hypotension: Initially labile with SBP in 60s-90s. Now up trending with most recent BP of 101/71 with IV fluids - In setting of A Fib with RVR. Blood cultures obtained, no evidence of PE or PNA on chest CTA -Continue to monitor -Resume Lasix, amlodipine tomorrow (3) CAD (coronary artery disease), [place] coronary artery: (4) S/P right coronary artery (RCA) stent placement: Recent RCA stent on 10/09/18 -Initially with chest pain on presentation, improved after cardioversion -No significant ischemic ECG changes -Chest pain subsiding with HR control s/p cardioversion -Continue plavix, statin (5) COPD (chronic obstructive pulmonary disease): Scattered wheezes on exam, severe emphysema on Chest CTA -Xopenex nebs Q6H PRN -Continue home inhalers (6) Tobacco abuse: Decreased cigarettes to 3-5 daily since stent placement -Counseled on cessation, not interested at this time DVT Ppx: IV heparin, continue coumadin until therapeutic Code status: FULL PCP: Korina Dispo: Admitted to ICU. Discharge planning ordered. Patient seen in collaboration with Dr. Meng. Please see addendum. History of Present Illness Chief Complaint: chest pain Primary Care Provider: Khoa Hui MD This is a 73yo F with a PMH of paroxysmal A Fib, CAD (s/p recent RCA stent on 10/09/18), HTN, tobacco use disorder, COPD and other medical problems listed below who presents after developing chest pain at home today around 11 am. Patient was doing housework this morning and was placing towels into washer when she developed sudden onset chest pain that was described as central heaviness. Pain radiated to right arm, specifically between elbow and shoulder as well as to jaw. Patient also endorsing diaphoresis and lightheadedness but denied nausea, vomiting or shortness of breath. Sat down to rest but pain did not subside. Took 3 sublingual nitroglycerin tablets without relief and called EMS. Recently underwent cardiac cath with RCA stent placement on 10/09/18 and has been free of chest pain until today. Is on Plavix and Coumadin with aspirin recently discontinued, per cardio. Has reduced cigarette amount to 35 daily but is still smoking. Has also been more active than advised to be post-cath due to needing to help her daughter who is recovering from surgery. Patient is mentating well and chest pain has almost resolved after cardioversion. Denies any fever, chills, lightheadedness, cough, palpitations, shortness of breath, nausea, vomiting, abdominal pain, dysuria, diarrhea or constipation. Was found to be hypotensive with SBP in 80s-90s with atrial fibrillation with RVR with heart rate ranging from 120-160. Underwent urgent cardioversion by ED provider and HR improved to low 100s. Remained hypotensive with slow improvement to BP with IV fluids. Will be monitored in ICU overnight. Dr. Naqvi involved with care and planning to discontinue Toprol and initiate Sotalol during admission. Allergies Allergy/AdvReac Type Severity Reaction Status Date / Time valsartan Allergy Severe Edema Verified 10/18/18 14:07 face/lips/tongue. NAI Inhibitors Allergy Unknown Cough. Verified 10/18/18 14:07 nickel Allergy Unknown Rash. Verified 10/18/18 14:07 FLUARIX Allergy Unknown Unknown. Uncoded 10/18/18 14:07 Home Medications Home Medications Medication Instructions Recorded Confirmed Type furosemide 20 mg PO DAILY 10/08/18 10/18/18 History montelukast 10 mg PO PM 10/08/18 10/18/18 History clopidogrel 75 mg PO QAM #34 tab 10/10/18 10/18/18 Rx amlodipine 5 mg PO DAILY 10/18/18 10/18/18 History atorvastatin 20 mg PO HS 10/18/18 10/18/18 History fluticasone propion-salmeterol 2 puff INHALATION BID 10/18/18 10/18/18 History [Advair HFA] ipratropium-albuterol [Combivent 1 puff INHALATION QID PRN 10/18/18 10/18/18 History Respimat] metoprolol succinate 25 mg PO PM 10/18/18 10/18/18 History metoprolol succinate [Toprol XL] 50 mg PO DAILY 10/18/18 10/18/18 History warfarin 2.5 mg PO SUMOWETHFR@1600 10/18/18 10/18/18 History warfarin 5 mg PO TUSA@1600 10/18/18 10/18/18 History Past Med/Surg History Medical History Venous insufficiency (Chronic) COPD (chronic obstructive pulmonary disease) (Chronic) Prediabetes (Chronic) Hyperlipidemia (Chronic) Tobacco abuse (Chronic) CAD (coronary artery disease), [place] coronary artery (Chronic) Emphysema of lung (Chronic) Hypertension (Chronic) Surgical History S/P right coronary artery (RCA) stent placement (Chronic) H/O: hysterectomy (Chronic) S/P appendectomy (Chronic) Family History Other Colon cancer Social History Preferred Language: Hebrew Communication Ability: Effective Recapper Required: No Beliefs That Will Affect Care: None Current Living Situation: Alone Other Information That Helps Us Care for You: No Feels Safe at Home: Yes Safety Concerns: Feels Safe At This Time Smoking Status: Current every day smoker Tobacco Type: cigarettes Cigarettes Per Day: 3-5 Do You Dip or Chew Tobacco: No Second Hand Exposure: No Tobacco Cessation Education Requested by Patient: No Hx Alcohol Use: Yes Alcohol type: wine Alcohol Intake Frequency Comment: 1-2 glasses of wine 3-5 days per week Hx Substance Use: No Review of Systems Review of Systems: At least ten systems reviewed and negative except as noted in the HPI. Physical Exam Physical Exam: General Appearance: WD/WN, no apparent distress, resting comfortably Head: normocephalic, atraumatic Eyes: normal inspection, PERRL, EOMI ENT: hearing grossly normal, pharynx normal (moist mucous membranes) Neck: supple, no JVD, no adenopathy Respiratory/Chest: Scattered wheezes but otherwise lungs clear to auscultation. No rales or rhonci. No respiratory distress or accessory muscle use Cardiovascular: irregular rate & rhythm, tachycardic. No murmur appreciated, normal peripheral pulses Abdomen/GI: normal bowel sounds, soft, non-tender to palpation Extremities/Musculoskelatal: normal inspection, no calf tenderness, normal capillary refill, no pedal edema Neurologic/Psych: alert, normal mood/affect, oriented x 3 Skin: normal color, warm/dry Results & Data Vital Signs (Past 12 Hours) Vital Signs Temp Pulse Resp BP BP BP Pulse Ox 10/18/18 15:06 119 H 95/68 L 92 10/18/18 14:46 110 H 118/64 92 10/18/18 14:41 120 H 99/79 L 93 10/18/18 14:40 100 H 94 10/18/18 14:37 109 H 88/64 L 93 10/18/18 14:35 105 H 93 10/18/18 14:31 111 H 95/72 L 92 10/18/18 14:17 112 H 78/62 L 85 L 10/18/18 14:11 116 H 74/55 L 93 10/18/18 14:06 109 H 81/47 L 94 10/18/18 14:04 112 H 76/59 L 93 10/18/18 14:01 102 H 88/54 L 95 10/18/18 13:56 117 H 88/49 L 94 10/18/18 13:42 127 H 95/68 L 96 10/18/18 13:41 122 H 72/56 L 96 10/18/18 13:40 119 H 93 10/18/18 13:37 92/50 L 86/44 L 10/18/18 13:35 112 H 66/41 L 96 10/18/18 13:32 125 H 95 10/18/18 13:31 125 H 88/47 L 95 10/18/18 13:30 113 H 96 10/18/18 13:29 126 H 81/57 L 96 10/18/18 13:26 121 H 73/51 L 96 10/18/18 13:25 129 H 94 10/18/18 13:23 132 H 94 10/18/18 13:22 135 H 90/43 L 94 10/18/18 13:19 94 10/18/18 13:16 36.5 C 141 H 24 99/55 L 94 Laboratory Results Short CBC 10/18/18 Range/Units 13:18 WBC 8.06 (4.8-10.8) K/uL Hgb 13.4 (12.0-16.0) g/dL Hct 40.9 (37-47) % Plt Count 156 (130-400) K/uL BMP 10/18/18 13:18 Sodium 138 Potassium 3.7 Chloride 103 Carbon Dioxide 26 BUN 21 H Creatinine 0.96 Glucose 115 H Calcium 9.0 Cardiac Enzymes 10/18/18 Range/Units 13:18 Troponin I < 0.015 (0-0.045) ng/ml Diagnostic Findings CXR: IMPRESSION: Negative chest. Chest CTA: IMPRESSION: 1. No pulmonary emboli identified. 2. Severe emphysema. No consolidation to suggest pneumonia. ECG Rhythm: atrial fibrillation Findings: + ST depression (anterolateral leads ) Supervising Physician Co-Signing Physician Notes Patient is a 72-year-old female with history of paroxysmal atrial fibrillation, coronary artery disease, advanced COPD, ongoing tobacco use disorder and other problems presents with history of chest pain which started this morning. She describes her chest pain to be like heaviness, radiates to the right arm associated with lightheadedness. She took 3 nitroglycerin tablets without any relief. In ER patient was found to be in A. fib RVR, hypertensive with systolic blood pressure in 80s. Patient underwent urgent cardioversion and was given IV fluids while in ED. Patient states she has been compliant with medications. Her heart rate is better in 110s after the cardioversion. Chest pain is improving while in ED. On exam patient is moderately built and nourished, no apparent distress, decreased breath sounds on auscultation, bilateral scant wheezes, irregularly irregular rhythm, tachycardia, no murmur, abdomen soft nontender, moves all extremities, 1-2+ bilateral lower extremity edema. Patient is admitted for management of A. fib RVR, subtherapeutic INR. Patient is started on sotalol and IV heparin. IV heparin will be discontinued once INR is therapeutic. Appreciate cardiology input. Continue IV fluids. Counseled to quit smoking. TSH is within normal limits. Initial troponins are negative. Echo did not show any left ventricular wall motion abnormality. EF is 65 to 70%. Left atrium is mildly dilated. There is moderate TR. Monitor electrolytes and replace as needed. I personally reviewed the record. Patient is interviewed and examined at bedside. Patient's care is coordinated with Ana Cowart PA-C. Please refer to the documentation above for details of patient's presentation and for discussion of other issues. (1) CAD (coronary artery disease), [place] coronary artery Associated angina: with unstable angina [place] vs. transplanted heart: [place] heart Qualified Code(s): I25.110 - Atherosclerotic heart disease of [place] coronary artery with unstable angina pectoris (2) Hypotension Hypotension type: unspecified hypotension type Qualified Code(s): I95.9 - Hypotension, unspecified
[2018-10-18] MEDS ORDERED: LEVALBUTEROL HCL 0.63 MG/3 ML NEB NEB PRN (15:59)
[2018-10-18] MEDS ORDERED: ICU PROTOCOL FOR HYPERGLYCEMIA PRN (15:59)
[2018-10-18] MEDS ORDERED: IPRATROPIUM BROMIDE/ALBUTEROL respimat INH INH PRN (15:59)
[2018-10-18] MEDS: SOTALOL HCL 80 MG TAB PO SCH ×2 (16:03→22:08)
[2018-10-18] MEDS: Heparin Adult STANDARD Wt-Based Dextrose 5% 25,000 units/500 mL IV SCH (16:04)
--- NOTE | 2018-10-18 17:13 | Emergency Department Note ---
Entered by Jose Lee acting as a scribe for History of Present Illness General Chief complaint: Chest Pain Time Seen by Provider: 10/18/18 13:08 Source: patient Mode of arrival: ambulatory History of Present Illness Provider complaint: Chest Pain Onset (ago): hour(s) 3 Location: chest Severity: severe Pain Consistency: + constant Current Pain Intensity: 7 Associated symptoms: + chest pain Treatments prior to arrival: none (nitro ) Patient is a 73 year old female who presents herself to the ER via EMS with complaint of chest pain beginning at 11am this morning. The patient was having chest pain so she took nitroglycerin and called EMS. Her nitroglycerin was . EMS states they administered an additional two doses of nitro. Patient states she was at her daughters house where she was transferring towels from the washer to dryer and started experiencing severe chest pain. She rates her co nstant pain at a value of 7 on the pain intensity scale.Patient state she recently had a stent placed 9 days ago. Patient does report she is on blood thinning medications, Plavix and Coumadin. Home Medications Home Medications Medication Instructions Recorded Confirmed Type furosemide 20 mg PO DAILY 10/08/18 10/18/18 History montelukast 10 mg PO PM 10/08/18 10/18/18 History clopidogrel 75 mg PO QAM #34 tab 10/10/18 10/18/18 Rx amlodipine 5 mg PO DAILY 10/18/18 10/18/18 History atorvastatin 20 mg PO HS 10/18/18 10/18/18 History fluticasone propion-salmeterol 2 puff INHALATION BID 10/18/18 10/18/18 History [Advair HFA] ipratropium-albuterol [Combivent 1 puff INHALATION QID PRN 10/18/18 10/18/18 History Respimat] metoprolol succinate 25 mg PO PM 10/18/18 10/18/18 History metoprolol succinate [Toprol XL] 50 mg PO DAILY 10/18/18 10/18/18 History warfarin 2.5 mg PO SUMOWETHFR@1600 10/18/18 10/18/18 History warfarin 5 mg PO TUSA@1600 10/18/18 10/18/18 History Allergies Allergy/AdvReac Type Severity Reaction Status Date / Time valsartan Allergy Severe Edema Verified 10/18/18 14:07 face/lips/tongue. NAI Inhibitors Allergy Unknown Cough. Verified 10/18/18 14:07 nickel Allergy Unknown Rash. Verified 10/18/18 14:07 FLUARIX Allergy Unknown Unknown. Uncoded 10/18/18 14:07 Past Med/Surg History Medical History Venous insufficiency (Chronic) COPD (chronic obstructive pulmonary disease) (Chronic) Prediabetes (Chronic) Hyperlipidemia (Chronic) Tobacco abuse (Chronic) CAD (coronary artery disease), [place] coronary artery (Chronic) Emphysema of lung (Chronic) Hypertension (Chronic) Surgical History S/P right coronary artery (RCA) stent placement (Chronic) H/O: hysterectomy (Chronic) S/P appendectomy (Chronic) Family History Other Colon cancer Social History Preferred Language: Nepalese Communication Ability: Effective Juvenile Court Liaison Required: No Beliefs That Will Affect Care: None Current Living Situation: Alone Other Information That Helps Us Care for You: No Feels Safe at Home: Yes Safety Concerns: Feels Safe At This Time Smoking Status: Current every day smoker Tobacco Type: cigarettes Cigarettes Per Day: 3-5 Do You Dip or Chew Tobacco: No Second Hand Exposure: No Tobacco Cessation Education Requested by Patient: No Hx Alcohol Use: Yes Alcohol type: wine Alcohol Intake Frequency Comment: 1-2 glasses of wine 3-5 days per week Hx Substance Use: No Review of Systems See HPI for pertinent positives & negatives. and A total of 10 systems reviewed and were otherwise negative Physical Exam Vital Signs Vital Signs - 24 hr 10/18/18 13:16 10/18/18 13:19 10/18/18 13:22 Temperature 36.5 C Temperature Source Oral Pulse Rate 141 H 135 H Pulse Rate from SpO2 Sensor 128 H Respiratory Rate 24 Blood Pressure 99/55 L 90/43 L Blood Pressure [Left Arm] Blood Pressure [Right Arm] Blood Pressure Mean 69 58 Blood Pressure Mean [Left Arm] Blood Pressure Mean [Right Arm] Pulse Oximetry 94 94 94 Oxygen Delivery Method Room Air Room Air Oxygen Flow Rate 10/18/18 13:23 10/18/18 13:25 10/18/18 13:26 Temperature Temperature Source Pulse Rate 132 H 129 H 121 H Pulse Rate from SpO2 Sensor 100 H 123 H 116 H Respiratory Rate Blood Pressure 73/51 L Blood Pressure [Left Arm] Blood Pressure [Right Arm] Blood Pressure Mean 58 Blood Pressure Mean [Left Arm] Blood Pressure Mean [Right Arm] Pulse Oximetry 94 94 96 Oxygen Delivery Method Nasal Cannula Nasal Cannula Nasal Cannula Oxygen Flow Rate 2 2 2 10/18/18 13:29 10/18/18 13:30 10/18/18 13:31 Temperature Temperature Source Pulse Rate 126 H 113 H 125 H Pulse Rate from SpO2 Sensor 124 H 107 H 117 H Respiratory Rate Blood Pressure 81/57 L 88/47 L Blood Pressure [Left Arm] Blood Pressure [Right Arm] Blood Pressure Mean 65 60 Blood Pressure Mean [Left Arm] Blood Pressure Mean [Right Arm] Pulse Oximetry 96 96 95 Oxygen Delivery Method Nasal Cannula Nasal Cannula Nasal Cannula Oxygen Flow Rate 2 2 2 10/18/18 13:32 10/18/18 13:35 10/18/18 13:37 Temperature Temperature Source Pulse Rate 125 H 112 H Pulse Rate from SpO2 Sensor 124 H 115 H Respiratory Rate Blood Pressure 66/41 L Blood Pressure [Left Arm] 92/50 L Blood Pressure [Right Arm] 86/44 L Blood Pressure Mean 49 Blood Pressure Mean [Left Arm] 64 Blood Pressure Mean [Right Arm] 58 Pulse Oximetry 95 96 Oxygen Delivery Method Nasal Cannula Oxygen Flow Rate 2 10/18/18 13:40 10/18/18 13:41 10/18/18 13:42 Temperature Temperature Source Pulse Rate 119 H 122 H 127 H Pulse Rate from SpO2 Sensor 113 H 128 H 115 H Respiratory Rate Blood Pressure 72/56 L 95/68 L Blood Pressure [Left Arm] Blood Pressure [Right Arm] Blood Pressure Mean 61 77 Blood Pressure Mean [Left Arm] Blood Pressure Mean [Right Arm] Pulse Oximetry 93 96 96 Oxygen Delivery Method Nasal Cannula Oxygen Flow Rate 2 10/18/18 13:56 10/18/18 14:01 10/18/18 14:04 Temperature Temperature Source Pulse Rate 117 H 102 H 112 H Pulse Rate from SpO2 Sensor 109 H 105 H 110 H Respiratory Rate Blood Pressure 88/49 L 88/54 L 76/59 L Blood Pressure [Left Arm] Blood Pressure [Right Arm] Blood Pressure Mean 62 65 64 Blood Pressure Mean [Left Arm] Blood Pressure Mean [Right Arm] Pulse Oximetry 94 95 93 Oxygen Delivery Method Nasal Cannula Nasal Cannula Nasal Cannula Oxygen Flow Rate 2 2 2 10/18/18 14:06 10/18/18 14:11 Temperature Temperature Source Pulse Rate 109 H 116 H Pulse Rate from SpO2 Sensor 101 H 116 H Respiratory Rate Blood Pressure 81/47 L 74/55 L Blood Pressure [Left Arm] Blood Pressure [Right Arm] Blood Pressure Mean 58 61 Blood Pressure Mean [Left Arm] Blood Pressure Mean [Right Arm] Pulse Oximetry 94 93 Oxygen Delivery Method Oxygen Flow Rate GENERAL: She appears distressed. HENT: Exam performed. Head: Normocephalic and atraumatic. Right Ear: External ear normal. No mastoid tenderness. Left Ear: External ear normal. No mastoid tenderness. Mouth/Throat: The oropharynx is clear and moist. No trismus in the jaw. No dental abscesses or uvula swelling. No oropharyngeal exudate or tonsillar abscesses. EYES: Conjunctivae and EOM are normal. Pupils are equal, round, and reactive to light. Right eye exhibits no discharge. Left eye exhibits no discharge. No scleral icterus. NECK: Normal range of motion. Neck supple. No JVD present. No spinous process tenderness present. No carotid bruit present. No rigidity. No tracheal deviation and normal range of motion present. No Brudzinski's sign and no Kernig's sign noted. CV: Tachycardic rate, irregular rhythm normal heart sounds and intact distal pulses. There is no peripheral edema. Palpable radial pulses in upper extremities. PULM/CHEST: Effort normal and breath sounds normal. No respiratory distress. No stridor. She has no wheezes. She has no rales. Chest Wall: She exhibits no tenderness. ABD: The abdomen is soft. Bowel sounds are normal. She has no distension. No mass is present. There is no tenderness. There is no rebound, no guarding, no Celeste's sign and no tenderness at McBurney's point. Rovsig negative MUSC/SKEL: Normal range of motion. There is no peripheral edema, tenderness or deformity. Palpable DP and PT pulses bilateral lower 70s. LYMPH: No cervical adenopathy. NEURO: She is alert and oriented to person, place, and time. She has normal strength. Sensation grossly intact. SKIN: Skin is warm and dry. She is not diaphoretic. PSYCH: She has a normal mood and affect. Her behavior is normal. Judgment and thought content normal. Course 1258: I received a call from EMS stating they are bringing a patient who had a stent placed 9 days ago and is now experiencing chest pain, and mild difficulty breathing symptoms. The patient is currently in atrial fibrillation with rapid ventricular response. EMS states they administered two nitro which helped min imally. 1308: The patient was evaluated in room B1. A complete history and physical exam was performed. Patient was immediately placed on child monitor. Pads were placed on patient's chest. A Bedside ultrasound was performed and showed no pericardial effusion. EMR reviewed. Patient had a cardiac catheterization done by Dr. Naqvi and then a subsequent catheterization done by Dr. Marquez on October 09. Dr. Marquez put in a single drug-eluting stent in the patient's mid RCA. 1313: The patients BP is currently 99/55 patients. EKG shows A-fbib rate of 134. QRS is 92. QTC 501. There is mild ST depression in leads V4 through V6. Cardizem bolus of 10 mg and Cardizem drip ordered. IV fluids ordered. 1318: I spoke with Dr. Christiano Marquez, interventional cardiology regarding the patients case. We discussed the possibility of the patient having a stent occlusion. He states this is extremely unlikely as the patient stent was placed in the RCA and her EKG changes did not show any ST segment changes in leads II III or aVF. He states contact the patient's primary boat rental clerk Dr. Naqvi. He does state that the patient's POC troponin came back elevated to contact him. 1325: Patients BP is 85/43. I gave her repeat fluid bolus. Still having chest pain due to lower blood pressure. Cardizem will be held at this time. Cardioversion will be performed for her Afib with RVR and persistent hypotension. Patient was given Ativan 1.5 mg IV push and cardioverted with 125 J. 1330: I paged Dr. Naqvi 1336: Status post cardioversion, the patient reports her chest pain is improved. She is no longer reporting chest pain. Her heart rate has also improved however the patient remains in atrial fibrillation rhythm. No rapid ventricular rate. Patient's blood pressure 92/50. Fluids are continued to be administered. I spoke to Dr. Anuj Naqvi regarding the patients case. He will come down to see the patient. Patient will go to CAT scan to rule out PE. 1404: Dr. Naqvi has arrived and is evaluating the patient. Labs within normal limits, with the exception of a subtherapeutic INR. He states he will order a formal bedside echo. 1445: I have made multiple attempts to contact Dr. Ernandez, ICU, but he is unable to speak due to currently being involved with another critical patient's case. I spoke with Dr. Ana Newman who will touch base with Dr. Harmon when the patient arrived to the ICU. CTA of the chest negative for PE. Patient will be started on heparin bolus and drip. The patient has verbalized agreement and will be admitted under the care of Dr. [facility]. Administered Medications Heparin Sodium/Dextrose (Heparin Sodium/Dextrose) 25,000 units in 500 mls @ 25 mls/hr IV .Q20H DONOVAN; Protocol Stop: 11/17/18 15:59 Last Admin: 10/18/18 16:04 Dose: 1,250 units/hr, 25 mls/hr Documented by: [id number] Cosigned by: [id number] Sotalol HCl (Betapace) 80 mg PO BID [facility] Stop: 11/17/18 15:59 Last Admin: 10/18/18 16:03 Dose: 80 mg Documented by: [id number] Discontinued Medications Diltiazem HCl (Cardizem) Confirm Administered Dose 25 mg IV .STK-MED ONE Stop: 10/18/18 13:15 Last Admin: 10/18/18 13:35 Dose: Not Given Documented by: [id number] Diltiazem HCl (Cardizem) 10 mg IV NOW STA Stop: 10/18/18 13:16 Last Admin: 10/18/18 13:35 Dose: Not Given Documented by: [id number] Heparin Sodium (Porcine) (Heparin Sodium (Porcine)) Confirm Administered Dose 5,000 units .ROUTE .STK-MED ONE Stop: 10/18/18 14:30 Last Admin: 10/18/18 14:45 Dose: Not Given Documented by: [id number] Heparin Sodium (Porcine) (Heparin Iv Bolus) Confirm Administered Dose 10,000 units .ROUTE .STK-MED ONE Stop: 10/18/18 14:40 Last Admin: 10/18/18 14:45 Dose: 5,000 units Documented by: [id number] Cosigned by: [id number] Heparin Sodium (Porcine) (Heparin Iv Bolus) Confirm Administered Dose 10,000 units .ROUTE .STK-MED ONE Stop: 10/18/18 14:50 Last Admin: 10/18/18 15:12 Dose: Not Given Documented by: [id number] Heparin Sodium/Dextrose () 1 ea IV NOW STA; Protocol Stop: 10/18/18 14:20 Last Admin: 10/18/18 15:11 Dose: Not Given Documented by: [id number] Heparin Sodium/Dextrose (Heparin Sodium/Dextrose) Confirm Administered Dose 25,000 units IV .STK-MED ONE Stop: 10/18/18 14:29 Last Admin: 10/18/18 14:43 Dose: 25 ml Documented by: [id number] Cosigned by: [id number] Sodium Chloride (Nss 1000ml) 1,000 mls @ 999 mls/hr IV .Q1H1M DONOVAN Stop: 10/18/18 14:15 Last Infusion: 10/18/18 14:36 Dose: 0 mls/hr Documented by: [id number] Admin: 10/18/18 13:36 Dose: 999 mls/hr Documented by: [id number] Diltiazem HCl 125 mg/ Dextrose 125 mls @ 5 mls/hr IV .Q24H DONOVAN; Protocol Stop: 11/17/18 13:14 Last Admin: 10/18/18 13:36 Dose: Not Given Documented by: [id number] Ioversol (Optiray 320 125ml) 120 ml IV ONCE PRN PRN Reason: Interaction Checking Stop: 10/22/18 13:53 Last Admin: 10/18/18 13:54 Dose: 120 ml Documented by: [id number] Lorazepam (Ativan) Confirm Administered Dose 2 mg .ROUTE .STK-MED ONE Stop: 10/18/18 13:22 Last Admin: 10/18/18 13:25 Dose: 1.5 mg Documented by: [id number] Medical Decision Making Medical Records Attestation: I reviewed the patient's medical records. Home Medications Current Medication List: was personally reviewed by me Laboratory Data Attestation: I reviewed the patient's lab results. Result diagrams: 10/18/18 13:18 10/18/18 13:18 Lab Results 05/16/19 05/16/19 05/16/19 Range/Units 13:18 13:18 13:18 WBC 8.06 (4.8-10.8) K/uL RBC 4.64 (4.2-5.4) M/uL Hgb 13.4 (12.0-16.0) g/dL POC Hgb (12.0-16.0) g/dl Hct 40.9 (37-47) % POC Hct (37-47) % MCV 88.1 (80-100) fL MCH 28.9 (25-34) pg MCHC 32.8 (32-36) g/dL RDW Std Deviation 44.5 (36.4-46.3) fL RDW Coeff of Anais 13.7 (11.5-14.5) % Plt Count 156 (130-400) K/uL MPV 12.0 H (7.4-10.4) fL Immature Gran % (Auto) 0.1 % Neut % (Auto) 63.8 % Lymph % (Auto) 25.3 % [place] % (Auto) 10.0 % Eos % (Auto) 0.7 % Baso % (Auto) 0.1 % Immature Gran # (Auto) 0.01 (0.00-0.02) K/uL Neut # (Auto) 5.13 (1.4-6.5) K/uL Lymph # (Auto) 2.04 (1.2-3.4) K/uL [place] # (Auto) 0.81 H (0.11-0.59) K/uL Eos # (Auto) 0.06 (0-0.5) K/uL Baso # (Auto) 0.01 (0-0.2) K/uL PT 17.3 H (9.0-12.0) Seconds INR 1.8 H (0.9-1.1) APTT 32.8 H (21.0-31.0) Seconds PTT Ratio 1.2 POC Sodium (135-144) mEq/L Sodium 138 (136-145) mmol/L POC Potassium (3.3-5.0) mEq/L Potassium 3.7 (3.5-5.1) mmol/L POC Chloride (101-112) mEq/L Chloride 103 (98-107) mmol/L Carbon Dioxide 26 (21-32) mmol/L POC Total CO2 (24-31) mEq/l Anion Gap 9.0 (3-11) POC Anion Gap (16-25) mmol/L POC BUN (7-18) mg/dl BUN 21 H (7-18) mg/dl Creatinine 0.96 (0.6-1.2) mg/dl POC Creatinine (0.6-1.3) mg/dl Est Cr Clr Drug Dosing 55.7 ml/min Est GFR ( Amer) 67.1 Est GFR (Non-Af Amer) 57.9 BUN/Creatinine Ratio 21.9 H (10-20) Glucose 115 H (70-99) mg/dl POC Glucose (other) (70-99) mg/dl Calcium 9.0 (8.5-10.1) mg/dl POC Ioniz Calcium Estela (1.12-1.32) mmol/l Magnesium (1.8-2.4) mg/dl POC Troponin I (0-0.045) ng/ml Troponin I < 0.015 (0-0.045) ng/ml Lipase 121 (73-393) U/L TSH (0.300-4.500) uIu/ml 10/18/18 10/18/18 10/18/18 Range/Units 13:18 13:20 13:21 WBC (4.8-10.8) K/uL RBC (4.2-5.4) M/uL Hgb (12.0-16.0) g/dL POC Hgb 13.6 (12.0-16.0) g/dl Hct (37-47) % POC Hct 40 (37-47) % MCV (80-100) fL MCH (25-34) pg MCHC (32-36) g/dL RDW Std Deviation (36.4-46.3) fL RDW Coeff of Anais (11.5-14.5) % Plt Count (130-400) K/uL MPV (7.4-10.4) fL Immature Gran % (Auto) % Neut % (Auto) % Lymph % (Auto) % [place] % (Auto) % Eos % (Auto) % Baso % (Auto) % Immature Gran # (Auto) (0.00-0.02) K/uL Neut # (Auto) (1.4-6.5) K/uL Lymph # (Auto) (1.2-3.4) K/uL [place] # (Auto) (0.11-0.59) K/uL Eos # (Auto) (0-0.5) K/uL Baso # (Auto) (0-0.2) K/uL PT (9.0-12.0) Seconds INR (0.9-1.1) APTT (21.0-31.0) Seconds PTT Ratio POC Sodium 139 (135-144) mEq/L Sodium (136-145) mmol/L POC Potassium 3.7 (3.3-5.0) mEq/L Potassium (3.5-5.1) mmol/L POC Chloride 98 L (101-112) mEq/L Chloride (98-107) mmol/L Carbon Dioxide (21-32) mmol/L POC Total CO2 26 (24-31) mEq/l Anion Gap (3-11) POC Anion Gap 19.0 (16-25) mmol/L POC BUN 20 H (7-18) mg/dl BUN (7-18) mg/dl Creatinine (0.6-1.2) mg/dl POC Creatinine 1.0 (0.6-1.3) mg/dl Est Cr Clr Drug Dosing ml/min Est GFR ( Amer) Est GFR (Non-Af Amer) BUN/Creatinine Ratio (10-20) Glucose (70-99) mg/dl POC Glucose (other) 117 H (70-99) mg/dl Calcium (8.5-10.1) mg/dl POC Ioniz Calcium Estela 1.04 L (1.12-1.32) mmol/l Magnesium 1.8 (1.8-2.4) mg/dl POC Troponin I < 0.03 (0-0.045) ng/ml Troponin I (0-0.045) ng/ml Lipase (73-393) U/L TSH 4.190 (0.300-4.500) uIu/ml Imaging Data Attestation: I personally reviewed and interpreted this imaging study as follows: Radiologist's Impression: Radiology results as stated below per my review and the radiologist's interpretation: CT ANGIOGRAPHY OF THE CHEST, PULMONARY EMBOLUS PROTOCOL CLINICAL HISTORY: Shortness of breath. COMPARISON STUDY: Chest CT April 27, 2008. Chest radiograph performed earlier today. TECHNIQUE: Following IV administration of 120 mL of Optiray-320, helical axial images of the chest were obtained utilizing the pulmonary embolus protocol. Maximal intensity projections and sagittal and coronal reformats were viewed on an independent 3D workstation. IV contrast was administered without complication. Automated exposure control was utilized for the study. A dose lowering technique was utilized adhering to the principles of ALARA. CT DOSE: 337.08 mGy.cm FINDINGS: No pulmonary emboli are identified. There is no evidence for thoracic aortic dissection. There is moderate plaque within the thoracic aorta. The heart is mildly enlarged. There is no pericardial effusion. Central airways are patent. Severe emphysema is noted. No consolidation to suggest pneumonia. Subpleural opacities reflect atelectasis. Bony thorax is unremarkable. A few hypodense hepatic lesions are suboptimally assessed on this exam but favor cysts. There is a small hiatal hernia. IMPRESSION: 1. No pulmonary emboli identified. 2. Severe emphysema. No consolidation to suggest pneumonia. Electronically signed by: Félix Edwards M.D. 10/18/2018 2:15 PM XR chest 1V portable CLINICAL HISTORY: Chest Pain dyspnea COMPARISON STUDY: 05/15/2015 FINDINGS: The bones soft tissues and hemidiaphragms are normal. The card iomediastinal silhouette is normal. The lungs are clear. The pulmonary vasculature is normal. IMPRESSION: Negative chest. The above report was generated using voice recognition software. It may contain grammatical, syntax or spelling errors. Electronically signed by: Nicola Latham M.D. 10/18/2018 1:40 PM Dictated: 10/18/18 1339 Transcribed: 10/18/18 1339 Dictated: 10/18/18 1401 Transcribed: 10/18/18 1401 XR chest 1V portable CLINICAL HISTORY: Chest Pain dyspnea COMPARISON STUDY: 05/15/2015 FINDINGS: The bones soft tissues and hemidiaphragms are normal. The cardiomediastinal silhouette is normal. The lungs are clear. The pulmonary vasculature is normal. IMPRESSION: Negative chest. The above report was generated using voice recognition software. It may contain grammatical, syntax or spelling errors. Electronically signed by: Nicola Latham M.D. 10/18/2018 1:40 PM Dictated: 10/18/18 1339 Transcribed: 10/18/18 1339 ECG Data Attestation: I personally reviewed and interpreted this ECG as follows: Indication: chest pain Rate (beats per minute): 138 (Prehospital EKG) Rhythm: atrial fibrillation Findings: + other (Qrs qtc WNL ) and + ST depression (In V4 and V5) Additional Comments: EKG's conducted in ER EKG 1311 A-fib rate of 134 QRS WNL QTC 501 St depression in v4 and v5 EKG 1327 Status post carioversiosn swith 125 aline Afib with rate of [address] depression v4 thru v6 EKG 1328 Afrib rate of [address] depression V4 thru V5 EKG 1337 Afib rate of 112 Qrs WNL Qtc [address] depression v4 thru v6 EKG 1341 Afrib Rate of [address] DEPRESSION v4 thru v6 Blood Pressure Blood Pressure Findings: Low blood pressure Blood Pressure Disposition: further management by hospitalist [facility] Narrative 1258: I received a call from EMS stating they are bringing a patient who had a stent placed 9 days ago and is now experiencing chest pain, and mild difficulty breathing symptoms. The patient is currently in atrial fibrillation with rapid ventricular response. EMS states they administered two nitro which helped minimally. 1308: The patient was evaluated in room B1. A complete history and physical exam was performed. Patient was immediately placed on child monitor. Pads were placed on patient's chest. A Bedside ultrasound was performed and showed no pericardial effusion. EMR reviewed. Patient had a cardiac catheterization done by Dr. Naqvi and then a subsequent catheterization done by Dr. Marquez on October 09. Dr. Marquez put in a single drug-eluting stent in the patient's mid RCA. 1313: The patients BP is currently 99/55 patients. EKG shows A-fbib rate of 134. QRS is 92. QTC 501. There is mild ST depression in leads V4 through V6. Cardizem bolus of 10 mg and Cardizem drip ordered. IV fluids ordered. 1318: I spoke with Dr. Christiano Marquez, interventional cardiology regarding the patients case. We discussed the possibility of the patient having a stent occlusion. He states this is extremely unlikely as the patient stent was placed in the RCA and her EKG changes did not show any ST segment changes in leads II III or aVF. He states contact the patient's primary boat rental clerk Dr. Naqvi. He does state that the patient's POC troponin came back elevated to contact him. 1325: Patients BP is 85/43. I gave her repeat fluid bolus. Still having chest pain due to lower blood pressure. Cardizem will be held at this time. Cardioversion will be performed for her Afib with RVR and persistent hypotension. Patient was given Ativan 1.5 mg IV push and cardioverted with 125 J. 1330: I paged Dr. Naqvi 1336: Status post cardioversion, the patient reports her chest pain is improved. She is no longer reporting chest pain. Her heart rate has also improved however the patient remains in atrial fibrillation rhythm. No rapid ventricular rate. Patient's blood pressure 92/50. Fluids are continued to be administered. I spoke to Dr. Anuj Naqvi regarding the patients case. He will come down to see the patient. Patient will go to CAT scan to rule out PE. 1404: Dr. Naqvi has arrived and is evaluating the patient. Labs within nor mal limits, with the exception of a subtherapeutic INR. He states he will order a formal bedside echo. 1445: I have made multiple attempts to contact Dr. Ernandez, ICU, but he is unable to speak due to currently being involved with another critical patient's case. I spoke with Dr. Ana Newman who will touch base with Dr. Harmon when the patient arrived to the ICU. CTA of the chest negative for PE. Patient will be started on heparin bolus and drip. The patient has verbalized agreement and will be admitted under the care of Mamie Lozano. Impression & Plan Atrial fibrillation with RVR Critical Care Time I have personally spent 106 minutes of critical care time in the direct management of this patient. This includes bedside care, interpretation of diagnostic studies, and testing, discussion with consultants, patient, and family members, and other required patient management activities. This 106 minutes is in excess of all separately billable procedures. Critical Care Time: Yes Total Critical Care Time: 106 Discharge Plan Visit Data *Final* Discharge Date/Time: 10/18/18 15:39 Chief Complaint: Chest Pain ED Provider: Woodrow Keane Discharge Problem: Atrial fibrillation with RVR Patient Disposition: Admitted As Inpatient Discharge Instructions Interventions: ED Discharge Assessment Last Done: 10/18/18 15:39 The scribe's documentation has been prepared under my direction and personally reviewed by me in its entirety. I confirm that the note above accurately reflects all work, treatment, procedures, and medical decision making performed by me.
--- NOTE | 2018-10-18 17:41 | Critical Care Consultation ---
Date of Consultation October 18, 2018 Assessment & Plan (1) CAD (coronary artery disease), [place] coronary artery: Impression: 1. A. fib with RVR and hypotension requiring cardioversion. 2. COPD, gold level cannot be determined by CAT scan only. 3. Coronary artery disease status post AME to the RCA 2 weeks ago. 4. Hypertension. Plan: 1. ICU management. 2. Appreciate Dr. Naqvi input, patient started on sotalol. 3. Continue heparin drip. 4. Add Coumadin. Patient was subtherapeutic. 5. Continue Plavix. 6. Watch her blood pressure. 7. Add PPI. 8. Continue bronchodilators. 9. Discussed with the patient in details. 10. Discussed with Dr. Naqvi. Discussed with the staff in details, critical care time spent with the patient was 35 minutes. History of Present Illness Reason for Consultation: A. fib with RVR Requesting Physician: Dr. Hatch Attending Physician: Temo Hatch MD History of Present Illness Dear data: Thank you for the kind referral Mrs. Rolle to critical care service. This is 73-year-old female with history of coronary artery disease status post AME to the RCA 2 weeks ago, history of A. fib, has been maintained on Coumadin and Plavix, she has been feeling palpitation and dizziness for the past 2 weeks up until today when she decided to come into the hospital via the ambulance, the patient was found to be hypotensive and tachycardic and underwent emergent cardioversion. The patient rate has been better but she remains in A. fib after cardioversion. Patient was admitted to the ICU for further management and was started by Dr. Naqvi on sotalol for rate control. The patient blood pressure in the ICU remains in the range of 90s and she was completely asymptomatic. She denies any chest pain, no shortness of breath, denies any increased swelling in her lower extremities, no nausea or vomiting reported. Allergies Allergy/AdvReac Type Severity Reaction Status Date / Time valsartan Allergy Severe Edema Verified 10/18/18 14:07 face/lips/tongue. NAI Inhibitors Allergy Unknown Cough. Verified 10/18/18 14:07 nickel Allergy Unknown Rash. Verified 10/18/18 14:07 FLUARIX Allergy Unknown Unknown. Uncoded 10/18/18 14:07 Home Medications Home Medications Medication Instructions Recorded Confirmed Type furosemide 20 mg PO DAILY 10/08/18 10/18/18 History montelukast 10 mg PO PM 10/08/18 10/18/18 History clopidogrel 75 mg PO QAM #34 tab 10/10/18 10/18/18 Rx amlodipine 5 mg PO DAILY 10/18/18 10/18/18 History atorvastatin 20 mg PO HS 10/18/18 10/18/18 History fluticasone propion-salmeterol 2 puff INHALATION BID 10/18/18 10/18/18 History [Advair HFA] ipratropium-albuterol [Combivent 1 puff INHALATION QID PRN 10/18/18 10/18/18 History Respimat] metoprolol succinate 25 mg PO PM 10/18/18 10/18/18 History metoprolol succinate [Toprol XL] 50 mg PO DAILY 10/18/18 10/18/18 History warfarin 2.5 mg PO SUMOWETHFR@1600 10/18/18 10/18/18 History warfarin 5 mg PO TUSA@1600 10/18/18 10/18/18 History Patient History Medical History Venous insufficiency (Chronic) COPD (chronic obstructive pulmonary disease) (Chronic) Prediabetes (Chronic) Hyperlipidemia (Chronic) Tobacco abuse (Chronic) CAD (coronary artery disease), [place] coronary artery (Chronic) Emphysema of lung (Chronic) Hypertension (Chronic) Surgical History S/P right coronary artery (RCA) stent placement (Chronic) H/O: hysterectomy (Chronic) S/P appendectomy (Chronic) Family History Other Colon cancer Social History Preferred Language: [place] Communication Ability: Effective Sales Support Specialist Required: No Beliefs That Will Affect Care: None Current Living Situation: Alone Other Information That Helps Us Care for You: No Feels Safe at Home: Yes Safety Concerns: Feels Safe At This Time Smoking Status: Current every day smoker Tobacco Type: cigarettes Cigarettes Per Day: 3-5 Do You Dip or Chew Tobacco: No Second Hand Exposure: No Tobacco Cessation Education Requested by Patient: No Hx Alcohol Use: Yes Alcohol type: wine Alcohol Intake Frequency Comment: 1-2 glasses of wine 3-5 days per week Hx Substance Use: No Review of Systems Review of Systems: Review of system including 14 systems was unremarkable except for the above. Currently the patient is totally asymptomatic from a cardiopulmonary standpoint. Physical Exam Physical Exam: Nice female, does not appear to be in any distress, O2 saturation is 92% on 2 L, S1-S2 A. fib, lungs with distant breath sounds, abdomen is benign, no edema in the periphery, neurologically she is intact. No skin rash and no oral lesions. Results & Data Vital Signs (Past 12 Hours) Vital Signs Temp Pulse Resp BP BP BP Pulse Ox 10/18/18 16:00 36.8 C 119 H 20 124/91 90 10/18/18 15:31 101 H 101/71 93 10/18/18 15:16 108 H 123/62 92 10/18/18 15:11 114 H 106/59 L 94 10/18/18 15:06 119 H 95/68 L 92 10/18/18 14:46 110 H 118/64 92 10/18/18 14:41 120 H 99/79 L 93 10/18/18 14:40 100 H 94 10/18/18 14:37 109 H 88/64 L 93 10/18/18 14:35 105 H 93 10/18/18 14:31 111 H 95/72 L 92 10/18/18 14:17 112 H 78/62 L 85 L 10/18/18 14:11 116 H 74/55 L 93 10/18/18 14:06 109 H 81/47 L 94 10/18/18 14:04 112 H 76/59 L 93 10/18/18 14:01 102 H 88/54 L 95 10/18/18 13:56 117 H 88/49 L 94 10/18/18 13:42 127 H 95/68 L 96 10/18/18 13:41 122 H 72/56 L 96 10/18/18 13:40 119 H 93 10/18/18 13:37 92/50 L 86/44 L 10/18/18 13:35 112 H 66/41 L 96 10/18/18 13:32 125 H 95 10/18/18 13:31 125 H 88/47 L 95 10/18/18 13:30 113 H 96 10/18/18 13:29 126 H 81/57 L 96 10/18/18 13:26 121 H 73/51 L 96 10/18/18 13:25 129 H 94 10/18/18 13:23 132 H 94 10/18/18 13:22 135 H 90/43 L 94 10/18/18 13:19 94 10/18/18 13:16 36.5 C 141 H 24 99/55 L 94 Laboratory Results Labs showed normal CBC, INR is 1.8 and PTT still at 32.8. Diagnostic Findings CAT scan of the chest as well as a chest x-ray showed hyperinflated lungs and COPD changes. No PE. (1) CAD (coronary artery disease), [place] coronary artery [place] vs. transplanted heart: [place] heart Associated angina: with unstable angina Qualified Code(s): I25.110 - Atherosclerotic heart disease of [place] coronary artery with unstable angina pectoris
[2018-10-18 18:13] LABS: Appearance Urine Clear (Clear); Bilirubin Urine Negative (Negative); Blood Urine Trace (Negative); Color Urine Yellow; Glucose Urine UA Negative (Negative); Ketones Urine Trace (Negative); Leukocyte Esterase Urine Negative (Negative); Nitrite Urine Negative (Negative); Protein Urine Negative (Negative); Specific Gravity Urine <= 1.005 (1.000-1.030); Urobilinogen Urine Negative (Negative)
[2018-10-18 18:32] LABS: Bacteria Urine Negative (Negative); Hyaline Casts Urine 0-5 /lpf (0-5); RBC Urine 0-4 /hpf (0-4); WBC Urine 0-5 /hpf (0-5)
[2018-10-18 21:27] LABS: Partial Thromboplastin Ratio 4.5
[2018-10-18 21:42] LABS: Partial Thromboplastin Time 122.9 Seconds (21.0-31.0)
[2018-10-18] MEDS: MONTELUKAST SODIUM 10 MG TABLET PO SCH (22:08)
[2018-10-18] MEDS: PANTOprazole 40 MG TAB PO SCH (22:12)
[2018-10-19 05:31] LABS: Hematocrit (blood only) 35.5 % (37-47); Hemoglobin 12.3 g/dL (12.0-16.0); Mean Corpuscular Hgb Conc 34.6 g/dL (32-36); Mean Platelet Volume 11.4 fL (7.4-10.4); Platelet Count 128 K/uL (130-400); RDW Coefficient of Variation 13.8 % (11.5-14.5); RDW Standard Deviation 43.9 fL (36.4-46.3); Red Blood Count 4.08 M/uL (4.2-5.4); White Blood Count 7.56 K/uL (4.8-10.8)
[2018-10-19 05:57] LABS: INR 1.6 (0.9-1.1); Partial Thromboplastin Ratio 2.7; Prothrombin Time 15.9 Seconds (9.0-12.0)
[2018-10-19 06:00] LABS: BUN Creatinine Ratio 20.4 (10-20); Calcium 7.7 mg/dl (8.5-10.1); Creatinine Clr Calc Pharmacy 71.3 ml/min; Est GFR (African American) 90.4; Potassium 3.4 mmol/L (3.5-5.1)
[2018-10-19 06:04] LABS: Partial Thromboplastin Time 72.9 Seconds (21.0-31.0)
[2018-10-19] MEDS ORDERED: ATORVASTATIN 20 MG TAB PO SCH ×2 (09:00→21:00)
[2018-10-19] MEDS ORDERED: POTASSIUM CHLORIDE 20 MEQ TABCR PO STA (09:08)
[2018-10-19] MEDS: FUROSEMIDE 20 MG TAB PO SCH (09:30)
[2018-10-19] MEDS: AMLODIPINE BESYLATE 5 MG TAB PO SCH (09:30)
[2018-10-19] MEDS: FLUTICASONE/SALMETEROL 250/50 (ADVAIR) 14 PUFF/1 INHALER INH SCH ×2 (09:30→20:41)
[2018-10-19] MEDS: SOTALOL HCL 80 MG TAB PO SCH ×2 (09:30→20:42)
[2018-10-19] MEDS: CLOPIDOGREL BISULFATE 75 MG TAB PO SCH (09:30)
[2018-10-19] MEDS: PANTOprazole 40 MG TAB PO SCH (09:36)
--- NOTE | 2018-10-19 10:23 | Cardiology Progress Note ---
Date of Service October 19, 2018 Assessment & Plan (1) Atrial fibrillation with rapid ventricular response: Patient spontaneously converted to sinus rhythm overnight. Recommend continue sotalol loading with daily ECG. Potential discharge tomorrow evening after her fifth dose of oral sotalol. Continue telemetry monitoring. Increase dose of Coumadin to 7.5 mg today. Repeat INR in a.m. (2) CAD (coronary artery disease), [place] coronary artery: Recurrent angina noted associated with atrial fibrillation and rapid ventricular response. No significant ischemic ECG changes or ST elevations to suggest stent thrombosis. No significant troponin elevation. Continue Plavix uninterrupted in addition to intravenous heparin until INR is therapeutic. (3) S/P right coronary artery (RCA) stent placement: (4) Hypotension: Subjective Patient seen and examined the bedside. Spontaneously converted to sinus rhythm overnight. Tolerating sotalol. QTc within acceptable range. INR subtherapeutic. Intravenous heparin infusing. Denies chest pain or palpitations. Anxious for discharge. Offers no other concerns/complaints at this time. Review of Systems Review of Systems: All systems reviewed & are unremarkable except as noted in HPI & below Physical Exam Physical Exam: General: NAD, AAO x3, well nourished. HEENT: Normocephalic. Atraumatic. Conjunctiva pink, no scleral icterus. Neck: No carotid bruits, the carotid upstrokes are brisk. No JVD. No HJR Heart: Regular normal S-1 and S-2 no S-3 or S-4 gallop. No murmurs or rub appreciated. PMI is not displaced. No RV heave. Lungs: Clear bilateral without rales , rhonchi, or wheeze. Abdomen: Normal bowel sounds. Soft. Nontender. No masses or organomegaly. No abdominal bruits. Extremities: No clubbing, cyanosis, or edema. Pulses: radial=2/4, Dorsalis pedis =2/4, posterior tibial=2/4. Neuro: Cranial nerves grossly intact. No focal motor deficit. Results & Data Vital Signs (Past 12 Hours) Vital Signs Temp Pulse Resp BP Pulse Ox 10/19/18 06:00 55 L 18 131/50 L 90 10/19/18 04:00 36.6 C 56 L 16 113/60 90 10/19/18 02:00 57 L 20 129/66 90 10/19/18 00:00 36.6 C 87 20 123/79 90 (1) CAD (coronary artery disease), [place] coronary artery [place] vs. transplanted heart: [place] heart Associated angina: with unstable angina Qualified Code(s): I25.110 - Atherosclerotic heart disease of [place] coronary artery with unstable angina pectoris (2) Hypotension Hypotension type: unspecified hypotension type Qualified Code(s): I95.9 - Hypotension, unspecified
--- NOTE | 2018-10-19 11:04 | Critical Care Progress Note ---
Date of Service October 19, 2018 Assessment & Plan (1) CAD (coronary artery disease), [place] coronary artery: Impression: 1. A. fib with RVR and hypotension requiring cardioversion. 2. COPD, gold level cannot be determined by CAT scan only. 3. Coronary artery disease status post AME to the RCA 2 weeks ago. 4. Hypertension. Plan: 1. Noted to be hypoxic at 90% at rest. It would be advisable to perform 2 steps test. The patient however she seems to be adamant not to use oxygen at [facility]. 2. Appreciate Dr. Naqvi input, patient started on sotalol. 3. Continue heparin drip. 4. Continue Coumadin, follow INR. 5. Continue Plavix. 6. Watch her blood pressure. 7. Add PPI. 8. Continue bronchodilators. 9. Discussed with the patient in details. 10. Discussed with Dr. Naqvi. 11. Disposition plan per Dr. Hatch, appreciate his acceptance. Discussed with the staff in details, critical care time spent with the patient was 35 minutes. Subjective No events overnight, the patient did well, she is on room air 90% as well. The patient denies any chest pain. No palpitation, tolerating oral intake, ambulatory without assistance. Review of Systems Review of Systems: Review of system was unremarkable including 10 systems. Physical Exam Physical Exam: Vital signs are stable except for O2 sat of 90% on room air. This is at rest. She is not tachypneic. She is now in sinus rhythm. Rate controlled. Distant breath sounds bilaterally. Abdomen is benign. No edema. Neurologically she is intact. Results & Data Vital Signs (Past 12 Hours) Vital Signs Temp Pulse Resp BP Pulse Ox 10/19/18 06:00 55 L 18 131/50 L 90 10/19/18 04:00 36.6 C 56 L 16 113/60 90 10/19/18 02:00 57 L 20 129/66 90 10/19/18 00:00 36.6 C 87 20 123/79 90 Laboratory Results CBC has been stable. BMP is also stable. Her PTT is 72. INR is 1.6. Diagnostic Findings Chest x-ray with previously noted emphysematous changes, confirmed with the findings on the CAT scan, reviewed personally. (1) CAD (coronary artery disease), [place] coronary artery [place] vs. transplanted heart: [place] heart Associated angina: with unstable angina Qualified Code(s): I25.110 - Atherosclerotic heart disease of [place] coronary artery with unstable angina pectoris
--- NOTE | 2018-10-19 14:52 | Hospitalist Progress Note ---
Date of Service October 19, 2018 Assessment & Plan (1) Atrial fibrillation with rapid ventricular response: This is a 73yo F with a PMH of paroxysmal A Fib, CAD (s/p recent RCA stent on 10/09/18), HTN, tobacco use disorder, COPD and other medical problems listed below who presents after developing chest pain at home today around 11 am and was found to have A Fib with RVR. -Found to be hypotensive with SBP in 80s-90s with atrial fibrillation with RVR with heart rate ranging from 120-160 -Underwent urgent cardioversion by ED provider and HR improved to low 100s, still in A Fib -IV heparin initiated, INR subtherapeutic at 1.8 on coumadin. Will d/c heparin once INR therapeutic - EF:65-70% -Appreciate cardiology input and recommendation -Beta-ramana discontinued and sotalol started -The patient reverted to sinus rhythm without any symptoms -We will transfer to telemetry unit -She will need to stay till tomorrow evening before she can be discharged -She cannot take any Xarelto that caused severe upper extremity bleeding -She will be continued on Coumadin (2) Hypotension: Initially labile with SBP in 60s-90s. Now up trending with most recent BP of 101/71 with IV fluids - In setting of A Fib with RVR. Blood cultures obtained, no evidence of PE or PNA on chest CTA -Continue to monitor -Blood pressure responded with intravenous fluid and heart rate control -We will restart her usual medications for blood pressure (3) CAD (coronary artery disease), [place] coronary artery: (4) S/P right coronary artery (RCA) stent placement: Recent RCA stent on 10/09/18 -Initially with chest pain on presentation, improved after cardioversion -No significant ischemic ECG changes -Chest pain subsiding with HR control s/p cardioversion -Continue plavix, statin -And Coumadin (5) COPD (chronic obstructive pulmonary disease): Scattered wheezes on exam, severe emphysema on Chest CTA -Xopenex nebs Q6H PRN -Continue home inhalers (6) Tobacco abuse: Decreased cigarettes to 3-5 daily since stent placement -Counseled on cessation, not interested at this time DVT Ppx: IV heparin, continue coumadin until therapeutic Code status: FULL PCP: Korina Dispo: Admitted to ICU. Discharge planning ordered. Subjective 10/19 Patient is seen and examined in ICU Is a 73-year-old female with significant past cardiac history was admitted with fibrillation with RVR Has been on sotalol since admission and reverted to sinus rhythm Denies any symptoms today Review of Systems Review of Systems: All systems reviewed and are unremarkable except as noted below Constitutional: Generally weak and lethargic Respiratory: no cough and no dyspnea Cardiovascular: no chest pain and no palpitations Physical Exam Physical Exam: No apparent distress at rest Constitutional: well developed Eyes: PERRL, conjunctivae normal, anicteric sclerae ENMT: external ear and nose normal, oropharynx normal Neck: trachea midline, no thyromegaly Respiratory: normal respiratory effort; no respiratory distress Auscultati on: + crackles (Minimal crackles at the bases) Cardiovascular: Rate/Rhythm: regular rate and regular rhythm Gastrointestinal (Abdomen): Inspection/Auscultation: abdomen normal to inspection Psychiatric: A+Ox3, euthymic affect Lymphatic: no cervical or axillary lymphadenopathy Results & Data Vital Signs (Past 12 Hours) Vital Signs Temp Pulse Pulse Resp BP BP Pulse Ox 10/19/18 11:54 59 L 10/19/18 11:42 36.4 C L 58 L 19 110/63 93 10/19/18 09:00 65 21 145/77 H 92 10/19/18 08:00 36.7 C 59 L 18 88 L 10/19/18 07:00 53 L 18 131/50 L 88 L 10/19/18 06:00 55 L 18 131/50 L 90 10/19/18 04:00 36.6 C 56 L 16 113/60 90 Laboratory Results Short CBC 10/19/18 Range/Units 04:53 WBC 7.56 (4.8-10.8) K/uL Hgb 12.3 (12.0-16.0) g/dL Hct 35.5 L (37-47) % Plt Count 128 L (130-400) K/uL BMP 10/19/18 04:53 Sodium 141 Potassium 3.4 L Chloride 109 H Carbon Dioxide 26 BUN 15 Creatinine 0.75 Glucose 90 Calcium 7.7 L Cardiac Enzymes 10/18/18 10/19/18 Range/Units 21:01 01:18 Troponin I 0.036 0.040 (0-0.045) ng/ml Urine 10/18/18 Range/Units 18:04 Urine Color Yellow Urine Appearance Clear (Clear) Urine pH 7.0 (4.5-7.5) Ur Specific [place] <= 1.005 (1.000-1.030) Urine Protein Negative (Negative) Urine Glucose (UA) Negative (Negative) Medications Administered Current Inpatient Medications Albuterol (Combivent Respimat) 1 puffs INH QID PRN PRN Reason: Shortness Of Breath Stop: 11/17/18 15:58 Amlodipine Besylate (Norvasc) 5 mg PO DAILY [facility] Stop: 11/18/18 08:59 Last Admin: 10/19/18 09:30 Dose: 5 mg Documented by: Atorvastatin Calcium (Lipitor) 20 mg PO HS [facility] Stop: 11/18/18 20:59 Clopidogrel Bisulfate (Plavix) 75 mg PO QAM [facility] Stop: 11/18/18 08:59 Last Admin: 10/19/18 09:30 Dose: 75 mg Documented by: Furosemide (Lasix) 20 mg PO DAILY [facility] Stop: 11/18/18 08:59 Last Admin: 10/19/18 09:30 Dose: 20 mg Documented by: Heparin Sodium/Dextrose (Heparin Sodium/Dextrose) 25,000 units in 500 mls @ 20 mls/hr IV .Q24H DONOVAN; Protocol Stop: 11/17/18 15:59 Last Titration: 10/19/18 12:48 Dose: 1,000 units/hr, 20 mls/hr Documented by: Levalbuterol HCl (Xopenex 0.63 Mg/3 Ml Neb) 0.63 mg NEB Q6R PRN PRN Reason: Shortness Of Breath Or Wheezing Stop: 11/17/18 15:58 Miscellaneous (Icu Protocol For Hyperglycemia) 1 ea N/A PRN PRN; Protocol PRN Reason: Hyperglycemia Protocol Stop: 10/20/18 15:58 Miscellaneous (Order Awaiting Action) 1 ea N/A QS [facility] Stop: 11/18/18 00:00 Last Admin: 10/19/18 09:37 Dose: Not Given Documented by: Montelukast Sodium (Singulair) 10 mg PO PM [facility] Stop: 11/17/18 20:59 Last Admin: 10/18/18 22:08 Dose: 10 mg Documented by: Pantoprazole Sodium (Protonix) 40 mg PO QAM [facility] Stop: 10/21/18 09:01 Last Admin: 10/19/18 09:36 Dose: Not Given Documented by: Fluticasone/Salmeterol (Advair Diskus 250/50) 1 puffs INH BID [facility] Stop: 11/18/18 08:59 Last Admin: 10/19/18 09:30 Dose: 1 puffs Documented by: Sotalol HCl (Betapace) 80 mg PO BID [facility] Stop: 11/17/18 15:59 Last Admin: 10/19/18 09:30 Dose: 80 mg Documented by: Warfarin Sodium (Coumadin) 2.5 mg PO SUMOWETHFR@1600 [facility] Stop: 11/18/18 15:59 Warfarin Sodium (Coumadin) 5 mg PO TUSA@1600 [facility] Stop: 11/19/18 15:59 Warfarin Sodium (Coumadin) 7.5 mg PO DAILY@1600 [facility] Stop: 11/18/18 15:59 (1) Hypotension Hypotension type: unspecified hypotension type Qualified Code(s): I95.9 - Hypotension, unspecified (2) CAD (coronary artery disease), [place] coronary artery [place] vs. transplanted heart: [place] heart Associated angina: with unstable angina Qualified Code(s): I25.110 - Atherosclerotic heart disease of [place] coronary artery with unstable angina pectoris
[2018-10-19] MEDS: Heparin Adult STANDARD Wt-Based Dextrose 5% 25,000 units/500 mL IV SCH (15:35)
[2018-10-19] MEDS ORDERED: WARFARIN SOD 2.5 MG TAB PO SCH (16:00)
[2018-10-19] MEDS ORDERED: WARFARIN SOD 7.5 MG TAB PO SCH (16:00)
[2018-10-19] MEDS: MONTELUKAST SODIUM 10 MG TABLET PO SCH (20:42)
[2018-10-20 07:14] LABS: Basophils # (auto) 0.01 K/uL (0-0.2); Basophils % (auto) 0.1 %; Eosinophils # (auto) 0.13 K/uL (0-0.5); Eosinophils % (auto) 1.9 %; Hemoglobin 13.1 g/dL (12.0-16.0); Immature Granulocytes # (auto) 0.02 K/uL (0.00-0.02); Immature Granulocytes % (auto) 0.3 %; Lymphocytes # (auto) 2.66 K/uL (1.2-3.4); Lymphocytes % (auto) 38.2 %; Mean Corpuscular Hgb Conc 33.6 g/dL (32-36); Mean Corpuscular Volume 87.6 fL (80-100); Monocytes # (auto) 0.54 K/uL (0.11-0.59); Monocytes % (auto) 7.8 %; Neutrophils % (auto) 51.7 %; Platelet Count 136 K/uL (130-400); RDW Coefficient of Variation 13.8 % (11.5-14.5); RDW Standard Deviation 44.1 fL (36.4-46.3); Red Blood Count 4.45 M/uL (4.2-5.4); White Blood Count 6.96 K/uL (4.8-10.8)
[2018-10-20 07:38] LABS: INR 1.5 (0.9-1.1); Partial Thromboplastin Ratio 2.9; Prothrombin Time 14.5 Seconds (9.0-12.0)
[2018-10-20 07:40] LABS: Partial Thromboplastin Time 78.3 Seconds (21.0-31.0)
[2018-10-20 07:46] LABS: BUN Creatinine Ratio 18.6 (10-20); Calcium 8.5 mg/dl (8.5-10.1); Est GFR (African American) 94.9; Est GFR (Non-African American) 81.9; Magnesium 1.8 mg/dl (1.8-2.4); Phosphorus 3.1 mg/dl (2.5-4.9); Potassium 3.5 mmol/L (3.5-5.1)
[2018-10-20] MEDS: AMLODIPINE BESYLATE 5 MG TAB PO SCH (08:03)
[2018-10-20] MEDS: FLUTICASONE/SALMETEROL 250/50 (ADVAIR) 14 PUFF/1 INHALER INH SCH (08:03)
[2018-10-20] MEDS: CLOPIDOGREL BISULFATE 75 MG TAB PO SCH (08:03)
[2018-10-20] MEDS: FUROSEMIDE 20 MG TAB PO SCH (08:03)
[2018-10-20] MEDS: PANTOprazole 40 MG TAB PO SCH (08:04)
[2018-10-20] MEDS: SOTALOL HCL 80 MG TAB PO SCH (08:04)
[2018-10-20] MEDS ORDERED: POTASSIUM CHLORIDE 20 MEQ TABCR PO STA (08:33)
--- NOTE | 2018-10-20 10:19 | Cardiology Progress Note ---
Date of Service October 20, 2018 Assessment & Plan (1) Atrial fibrillation with rapid ventricular response: Patient remains in sinus rhythm overnight. EKG without QT prolongation. Tolerating sotalol load We will anticipate discharge later today (2) CAD (coronary artery disease), [place] coronary artery: No angina or ischemia (3) S/P right coronary artery (RCA) stent placement: (4) Hypotension: Resolved blood pressures now creeping up. We will not make any adjustments but will supplement potassium Subjective Patient seen and examined, chart medications telemetry reviewed. No arrhythmias overnight remains in sinus rhythm. No complaints chest pain shortness of breath orthopnea or worsening peripheral edema. Blood pressure slightly elevated this morning but otherwise has been doing well no headaches or visual changes. No bleeding difficulties on anticoagulation Review of Systems Review of Systems: As per HPI Physical Exam Constitutional: WD/WN, vitals as above ENMT: external ear and nose normal, oropharynx normal Neck: trachea midline, no thyromegaly Respiratory: normal respiratory effort, lungs clear to auscultation Cardiovascular: Rate/Rhythm: regular rate and regular rhythm Heart Sounds: no gallop and no murmur Palpation: normal PMI Extremities: no edema Gastrointestinal (Abdomen): normal bowel sounds, soft, nontender, no hepato splenomegaly Musculoskeletal: no cyanosis or clubbing, extremities motor strength 5/5 Results & Data Vital Signs (Past 12 Hours) Vital Signs Temp Pulse Pulse Resp BP Pulse Ox 10/20/18 07:44 36.2 C L 59 L 19 160/80 H 92 10/20/18 04:20 37 C 72 18 119/72 87 L 10/20/18 00:21 36.7 C 64 18 129/64 90 10/19/18 23:38 63 Laboratory Results Laboratory Results - last 24 hr 10/19/18 10/20/18 10/20/18 11:48 06:53 06:53 WBC 6.96 RBC 4.45 Hgb 13.1 Hct 39.0 MCV 87.6 MCH 29.4 MCHC 33.6 RDW Std Deviation 44.1 RDW Coeff of [place]ais 13.8 Plt Count 136 MPV 12.0 H Immature Gran % (Auto) 0.3 Neut % (Auto) 51.7 Lymph % (Auto) 38.2 [place] % (Auto) 7.8 Eos % (Auto) 1.9 Baso % (Auto) 0.1 Immature Gran # (Auto) 0.02 Neut # (Auto) 3.60 Lymph # (Auto) 2.66 [place] # (Auto) 0.54 Eos # (Auto) 0.13 Baso # (Auto) 0.01 PT INR APTT 55.0 H* PTT Ratio 2.0 Sodium 142 Potassium 3.5 Chloride 110 H Carbon Dioxide 28 Anion Gap 5.0 BUN 13 Creatinine 0.72 Est Cr Clr Drug Dosing 74.0 Est GFR ( Amer) 94.9 Est GFR (Non-Af Amer) 81.9 BUN/Creatinine Ratio 18.6 Glucose 97 Calcium 8.5 Phosphorus 3.1 Magnesium 1.8 10/20/18 06:53 WBC RBC Hgb Hct MCV MCH MCHC RDW Std Deviation RDW Coeff of [place]ais Plt Count MPV Immature Gran % (Auto) Neut % (Auto) Lymph % (Auto) [place] % (Auto) Eos % (Auto) Baso % (Auto) Immature Gran # (Auto) Neut # (Auto) Lymph # (Auto) [place] # (Auto) Eos # (Auto) Baso # (Auto) PT 14.5 H INR 1.5 H APTT 78.3 H* PTT Ratio 2.9 Sodium Potassium Chloride Carbon Dioxide Anion Gap BUN Creatinine Est Cr Clr Drug Dosing Est GFR ( Amer) Est GFR (Non-Af Amer) BUN/Creatinine Ratio Glucose Calcium Phosphorus Magnesium ECG Additional Comments: 20-OCT-2018 07:26:26 [facility]-D ROUTINE RETRIEVAL Sinus bradycardia Incomplete right bundle branch block Borderline ECG When compared with ECG of 19-OCT-2018 07:54, Premature atrial complexes are no longer Present QT corrected 457 (1) CAD (coronary artery disease), [place] coronary artery [place] vs. transplanted heart: [place] heart Associated angina: with unstable angina Qualified Code(s): I25.110 - Atherosclerotic heart disease of [place] coronary artery with unstable angina pectoris (2) Hypotension Hypotension type: unspecified hypotension type Qualified Code(s): I95.9 - Hypotension, unspecified
[2018-10-20] MEDS ORDERED: POTASSIUM CHLORIDE 10 MEQ TABCR PO ONE (10:24)
[2018-10-20 10:55] VITALS: TEMP 97.9; O2SAT 94
--- NOTE | 2018-10-20 12:02 | Hospitalist Progress Note ---
Date of Service October 20, 2018 Assessment & Plan (1) Atrial fibrillation with rapid ventricular response: This is a 73yo F with a PMH of paroxysmal A Fib, CAD (s/p recent RCA stent on 10/09/18), HTN, tobacco use disorder, COPD and other medical problems listed below who presents after developing chest pain at home today around 11 am and was found to have A Fib with RVR. -Found to be hypotensive with SBP in 80s-90s with atrial fibrillation with RVR with heart rate ranging from 120-160 -Underwent urgent cardioversion by ED provider and HR improved to low 100s, still in A Fib -IV heparin initiated, INR subtherapeutic at 1.8 on coumadin. Will d/c heparin once INR therapeutic - EF:65-70% -Appreciate cardiology input and recommendation -Beta-ramana discontinued and sotalol started -The patient reverted to sinus rhythm without any symptoms -We will transfer to telemetry unit -She cannot take any Xarelto that caused severe upper extremity bleeding -Coumadin continued -Reverted to sinus rhythm and await stable -Clinically a lot better and denies any symptoms -Will be discharged this afternoon (2) Hypotension: Initially labile with SBP in 60s-90s. Now up trending with most recent BP of 101/71 with IV fluids - In setting of A Fib with RVR. Blood cultures obtained, no evidence of PE or PNA on chest CTA -Blood pressure responded with intravenous fluid and heart rate control -Her beta-ramana has been discontinued and sotalol added for rhythm and rate control and control of blood pressure -Blood pressure was noted to be high earlier this morning but later on it is normalized (3) CAD (coronary artery disease), [place] coronary artery: (4) S/P right coronary artery (RCA) stent placement: Recent RCA stent on 10/09/18 -Initially with chest pain on presentation, improved after cardioversion -No significant ischemic ECG changes -Chest pain subsiding with HR control s/p cardioversion -Continue plavix, statin -And Coumadin (5) COPD (chronic obstructive pulmonary disease): Scattered wheezes on exam, severe emphysema on Chest CTA -Xopenex nebs Q6H PRN -Continue home inhalers (6) Tobacco abuse: Decreased cigarettes to 3-5 daily since stent placement -Counseled on cessation, not interested at this time DVT Ppx: IV heparin, continue coumadin until therapeutic INR is not yet therapeutic. She has not taking her Coumadin recently for a carpal tunnel surgery She will be given 7.5 mg of Coumadin today before she goes home She has an appointment with coordination clinic on Monday to check INR and dose Coumadin accordingly Code status: FULL PCP: Korina Dispo: Admitted to ICU. Discharge planning ordered. Discharge this afternoon Subjective 10/19 Patient is seen and examined in ICU Is a 73-year-old female with significant past cardiac history was admitted with fibrillation with RVR Has been on sotalol since admission and reverted to sinus rhythm Denies any symptoms today 10/20 Patient is seen and examined in telemetry unit She denies any symptoms of chest pain, palpitation or shortness of breath She has been ambulating well without any difficulty Monitor did not show any significant cardiac events Review of Systems Review of Systems: All systems reviewed and are unremarkable except as noted below Cardiovascular: no chest pain with activity, no dyspnea on exertion and no palpitations Physical Exam Physical Exam: Lying in bed comfortably Constitutional: well developed Eyes: PERRL, conjunctivae normal, anicteric sclerae ENMT: external ear and nose normal, oropharynx normal Neck: trachea midline, no thyromegaly Respiratory: normal respiratory effort; no respiratory distress Cardiovascular: Rate/Rhythm: regular rate and regular rhythm Gastrointestinal (Abdomen): Inspection/Auscultation: abdomen normal to inspection Neurologic: PERRL, EOMI, accommodation nl, no face palsy, no dysarthria Psychiatric: A+Ox3, euthymic affect Lymphatic: no cervical or axillary lymphadenopathy Results & Data Vital Signs (Past 12 Hours) Vital Signs Temp Pulse Resp BP Pulse Ox 10/20/18 10:52 36.6 C 53 L 19 123/66 94 10/20/18 07:44 36.2 C L 59 L 19 160/80 H 92 10/20/18 04:20 37 C 72 18 119/72 87 L 10/20/18 00:21 36.7 C 64 18 129/64 90 Laboratory Results Short CBC 10/20/18 Range/Units 06:53 WBC 6.96 (4.8-10.8) K/uL Hgb 13.1 (12.0-16.0) g/dL Hct 39.0 (37-47) % Plt Count 136 (130-400) K/uL BMP 10/20/18 06:53 Sodium 142 Potassium 3.5 Chloride 110 H Carbon Dioxide 28 BUN 13 Creatinine 0.72 Glucose 97 Calcium 8.5 Medications Administered Current Inpatient Medications Albuterol (Combivent Respimat) 1 puffs INH QID PRN PRN Reason: Shortness Of Breath Stop: 11/17/18 15:58 Amlodipine Besylate (Norvasc) 5 mg PO DAILY DONOVAN Stop: 11/18/18 08:59 Last Admin: 10/20/18 08:03 Dose: 5 mg Documented by: Atorvastatin Calcium (Lipitor) 20 mg PO HS [facility] Stop: 11/18/18 20:59 Last Admin: 10/19/18 20:42 Dose: 20 mg Documented by: Clopidogrel Bisulfate (Plavix) 75 mg PO QAM [facility] Stop: 11/18/18 08:59 Last Admin: 10/20/18 08:03 Dose: 75 mg Documented by: Furosemide (Lasix) 20 mg PO DAILY DONOVAN Stop: 11/18/18 08:59 Last Admin: 10/20/18 08:03 Dose: 20 mg Documented by: Heparin Sodium/Dextrose (Heparin Sodium/Dextrose) 25,000 units in 500 mls @ 17 mls/hr IV .Q24H DONOVAN; Protocol Stop: 11/17/18 15:59 Last Titration: 10/20/18 08:02 Dose: 850 units/hr, 17 mls/hr Documented by: Levalbuterol HCl (Xopenex 0.63 Mg/3 Ml Neb) 0.63 mg NEB Q6R PRN PRN Reason: Shortness Of Breath Or Wheezing Stop: 11/17/18 15:58 Miscellaneous (Icu Protocol For Hyperglycemia) 1 ea N/A PRN PRN; Protocol PRN Reason: Hyperglycemia Protocol Stop: 10/20/18 15:58 Miscellaneous (Order Awaiting Action) 1 ea N/A QS [facility] Stop: 11/18/18 00:00 Last Admin: 10/20/18 07:23 Dose: Not Given Documented by: Montelukast Sodium (Singulair) 10 mg PO PM [facility] Stop: 11/17/18 20:59 Last Admin: 10/19/18 20:42 Dose: 10 mg Documented by: Pantoprazole Sodium (Protonix) 40 mg PO QAM [facility] Stop: 10/21/18 09:01 Last Admin: 10/20/18 08:04 Dose: 40 mg Documented by: Potassium Chloride (Klor-Con M10) 10 meq PO DAILY [facility] Stop: 11/20/18 08:59 Fluticasone/Salmeterol (Advair Diskus 250/50) 1 puffs INH BID [facility] Stop: 11/18/18 08:59 Last Admin: 10/20/18 08:03 Dose: 1 puffs Documented by: Sotalol HCl (Betapace) 80 mg PO BID [facility] Stop: 11/17/18 15:59 Last Admin: 10/20/18 08:04 Dose: 80 mg Documented by: Warfarin Sodium (Coumadin) 2.5 mg PO SUMOWETHFR@1600 [facility] Stop: 11/18/18 15:59 Warfarin Sodium (Coumadin) 5 mg PO TUSA@1600 [facility] Stop: 11/19/18 15:59 Warfarin Sodium (Coumadin) 7.5 mg PO DAILY@1600 [facility] Stop: 11/18/18 15:59 Last Admin: 10/19/18 15:35 Dose: 7.5 mg Documented by: (1) Hypotension Hypotension type: unspecified hypotension type Qualified Code(s): I95.9 - Hypotension, unspecified (2) CAD (coronary artery disease), [place] coronary artery [place] vs. transplanted heart: [place] heart Associated angina: with unstable angina Qualified Code(s): I25.110 - Atherosclerotic heart disease of [place] coronary artery with unstable angina pectoris
[2018-10-20 12:27] VITALS: BP 110/63; PULSE 58
[2018-10-20] MEDS: Heparin Adult STANDARD Wt-Based Dextrose 5% 25,000 units/500 mL IV SCH (14:36)
[2018-10-20] MEDS ORDERED: WARFARIN SOD 5 MG TAB PO SCH (16:00)
--- NOTE | 2018-10-21 08:14 | Discharge Summary ---
Date of Service October 21, 2018 Admission HPI Per Admitting Provider This is a 73yo F with a PMH of paroxysmal A Fib, CAD (s/p recent RCA stent on 10/09/18), HTN, tobacco use disorder, COPD and other medical problems listed below who presents after developing chest pain at home today around 11 am. Patient was doing housework this morning and was placing towels into washer when she developed sudden onset chest pain that was described as central heaviness. Pain radiated to right arm, specifically between elbow and shoulder as well as to jaw. Patient also endorsing diaphoresis and lightheadedness but denied nausea, vomiting or shortness of breath. Sat down to rest but pain did not subside. Took 3 sublingual nitroglycerin tablets without relief and called EMS. Recently underwent cardiac cath with RCA stent placement on 10/09/18 and has been free of chest pain until today. Is on Plavix and Coumadin with aspirin recently discontinued, per cardio. Has reduced cigarette amount to 35 daily but is still smoking. Has also been more active than advised to be post-cath due to needing to help her daughter who is recovering from surgery. Patient is mentating well and chest pain has almost resolved after cardioversion. Denies any fever, chills, lightheadedness, cough, palpitations, shortness of breath, nausea, vomiting, abdominal pain, dysuria, diarrhea or constipation. Was found to be hypotensive with SBP in 80s-90s with atrial fibrillation with RVR with heart rate ranging from 120-160. Underwent urgent cardioversion by ED provider and HR improved to low 100s. Remained hypotensive with slow improvement to BP with IV fluids. Will be monitored in ICU overnight. Dr. Naqvi involved with care and planning to discontinue Toprol and initiate Sotalol during admission. Admission Exam Per Admitting Provider Physical Exam: General Appearance: WD/WN, no apparent distress, resting comfortably Head: normocephalic, atraumatic Eyes: normal inspection, PERRL, EOMI ENT: hearing grossly normal, pharynx normal (moist mucous membranes) Neck: supple, no JVD, no adenopathy Respiratory/Chest: Scattered wheezes but otherwise lungs clear to auscultation. No rales or rhonci. No respiratory distress or accessory muscle use Cardiovascular: irregular rate & rhythm, tachycardic. No murmur appreciated, normal peripheral pulses Abdomen/GI: normal bowel sounds, soft, non-tender to palpation Extremities/Musculoskelatal: normal inspection, no calf tenderness, normal capillary refill, no pedal edema Neurologic/Psych: alert, normal mood/affect, oriented x 3 Skin: normal color, warm/dry Principal Diagnosis Atrial fibrillation with rapid ventricular response-reverted to sinus rhythm on sotalol, CAD status post right coronary artery stent, COPD Discharge Exam Constitutional well developed Eyes PERRL, conjunctivae normal, anicteric sclerae ENMT external ear and nose normal, oropharynx normal Neck trachea midline, no thyromegaly Respiratory normal respiratory effort; no respiratory distress Auscultation: + crackles (Minimal crackles at the bases) Cardiovascular Rate/Rhythm: regular rate and regular rhythm Gastrointestinal (Abdomen) Inspection/Auscultation: abdomen normal to inspection Neurologic PERRL, EOMI, accommodation nl, no face palsy, no dysarthria Psychiatric A+Ox3, euthymic affect Lymphatic no cervical or axillary lymphadenopathy Discharge Data Allergies Allergy/AdvReac Type Severity Reaction Status Date / Time valsartan Allergy Severe Edema Verified 10/18/18 14:07 face/lips/tongue. NAI Inhibitors Allergy Unknown Cough. Verified 10/18/18 14:07 nickel Allergy Unknown Rash. Verified 10/18/18 14:07 FLUARIX Allergy Unknown Unknown. Uncoded 10/18/18 14:07 Consultations 10/18/18 14:15 ED Decision to Admit Stat 10/18/18 15:23 Consult Pcmh Specialist Routine 10/18/18 15:59 Consult Cardiology Routine Consult Case Management - Discharge Planning Routine Ordered Studies 10/18/18 13:35 CT angio chest PE protocol Stat Hospital Course (1) Atrial fibrillation with rapid ventricular response: This is a 73yo F with a PMH of paroxysmal A Fib, CAD (s/p recent RCA stent on 10/09/18), HTN, tobacco use disorder, COPD and other medical problems listed below who presents after developing chest pain at home today around 11 am and was found to have A Fib with RVR. -Found to be hypotensive with SBP in 80s-90s with atrial fibrillation with RVR with heart rate ranging from 120-160 -Underwent urgent cardioversion by ED provider and HR improved to low 100s, still in A Fib -IV heparin initiated, INR subtherapeutic at 1.8 on coumadin. Will d/c heparin once INR therapeutic - EF:65-70% -Appreciate cardiology input and recommendation -Beta-ramana discontinued and sotalol started -The patient reverted to sinus rhythm without any symptoms -We will transfer to telemetry unit -She cannot take any Xarelto that caused severe upper extremity bleeding -Coumadin continued -Reverted to sinus rhythm and await stable -Clinically a lot better and denies any symptoms -Will be discharged this afternoon (2) Hypotension: Initially labile with SBP in 60s-90s. Now up trending with most recent BP of 101/71 with IV fluids - In setting of A Fib with RVR. Blood cultures obtained, no evidence of PE or PNA on chest CTA -Blood pressure responded with intravenous fluid and heart rate control -Her beta-ramana has been discontinued and sotalol added for rhythm and rate control and control of blood pressure -Blood pressure was noted to be high earlier this morning but later on it is normalized (3) CAD (coronary artery disease), [place] coronary artery: (4) S/P right coronary artery (RCA) stent placement: Recent RCA stent on 10/09/18 -Initially with chest pain on presentation, improved after cardioversion -No significant ischemic ECG changes -Chest pain subsiding with HR control s/p cardioversion -Continue plavix, statin -And Coumadin (5) COPD (chronic obstructive pulmonary disease): Scattered wheezes on exam, severe emphysema on Chest CTA -Xopenex nebs Q6H PRN -Continue home inhalers (6) Tobacco abuse: Decreased cigarettes to 3-5 daily since stent placement -Counseled on cessation, not interested at this time DVT Ppx: IV heparin, continue coumadin until therapeutic INR is not yet therapeutic. She has not taking her Coumadin recently for a carpal tunnel surgery She will be given 7.5 mg of Coumadin today before she goes home She has an appointment with [facility] clinic on Monday to check INR and dose Coumadin accordingly Code status: FULL PCP: Korina Dispo: Admitted to ICU. Discharge planning ordered. Discharge this afternoon Total Time Total Time Spent Total Time Spent (In Minutes): 35 minutes Total Time Includes: Examination of the Patient, Discharge Planning, Medication Reconciliation and Communication With Other Providers Discharge Plan Discharge Items Patient Disposition: Home - Self-Care Reason For Visit: AFIB WITH RVR Discharge Diagnosis: Atrial fibrillation with rapid ventricular response- reverted to sinus rhythm on sotalol, CAD status post right coronary artery stent, COPD Condition: Good Discharge Goals: Decrease discomfort, Improve function and Increase independence Activity: Resume your previous activity Non-emergency contact: Primary Care Provider Call non-emergency contact if: you have any medication questions and your symptoms worsen Follow-up/Referrals: Khoa Hui MD [Primary Care Provider] - (Your doctor's office will call with appointments. Keep your usual appointment with coagulation clinic) Diet: Heart Healthy Addtl Provider Instructions: Please take precaution to avoid falls. Please quit smoking Prescriptions: New sotalol 80 mg Tablet 80 mg PO BID 30 Days Qty: 60 RF: 0 pantoprazole 40 mg Tablet,Delayed Release (Dr/Ec) 40 mg PO QAM 30 Days Qty: 30 RF: 0 potassium chloride [Klor-Con M10] 10 mEq Tablet,Er Particles/Crystals 10 meq PO DAILY 30 Days Qty: 30 RF: 0 fluticasone propion-salmeterol [Advair Diskus] 250-50 mcg/dose Blister With Device 1 puff inhalation BID 30 Days Qty: 1 RF: 0 Continued montelukast 10 mg Tablet 10 mg PO PM RF: 0 furosemide 20 mg Tablet 20 mg PO DAILY RF: 0 clopidogrel 75 mg Tablet 75 mg PO QAM Qty: 34 RF: 0 atorvastatin 20 mg tablet 20 mg PO HS RF: 0 amlodipine 5 mg Tablet 5 mg PO DAILY RF: 0 warfarin 5 mg Tablet 5 mg PO TUSA@1600 RF: 0 Advair HFA 230-21 mcg/actuation HFA aerosol inhaler 2 puff inhalation BID RF: 0 Combivent Respimat 20-100 mcg/actuation Mist 1 puff INHALATION QID PRN (Reason: Shortness Of Breath) RF: 0 warfarin 5 mg Tablet 2.5 mg PO SUMOWETHFR@1600 RF: 0 Discontinued metoprolol succinate [Toprol XL] 50 mg tablet extended release 24 hr 50 mg PO DAILY RF: 0 metoprolol succinate 25 mg tablet extended release 24 hr 25 mg PO PM RF: 0 Stand-Alone Forms: Call Back Authorization, [facility] Discharge Orders: Discharge Order (Routine); Ordered 10/20/18 Ordered By: Temo Hatch Admission Data Admit Date/Time: 05/16/19 14:15 Attending Provider: Temo Hatch Admit Provider: Caesar Meng Primary Care Provider: Khoa Hui Other Providers: Caesar Meng ; Tai Harmon ; Anuj Naqvi Service: Telemetry Other Interventions: Discharge Summary Assessment (RN) Last Done: 10/20/18 15:02 DC Date/Time DO NOT enter until pt leaves facility: 10/20/18 15:15
[2018-10-21] MEDS ORDERED: POTASSIUM CHLORIDE 10 MEQ TABCR PO SCH (09:00)
== END 2018-10-20 15:15 | disposition home or self-care (01) | DRG 310 ==
LOC: ED 13:06 → 1E 14:15 → 2S 10-19 11:28
DX: I48.0 Paroxysmal atrial fibrillation; F17.210 Nicotine dependence, cigarettes, uncomplicated; Z91.048 Other nonmedicinal substance allergy status; I10 Essential (primary) hypertension; E78.5 Hyperlipidemia, unspecified; I25.10 Atherosclerotic heart disease of native coronary artery without angina pectoris; Z79.01 Long term (current) use of anticoagulants; Z79.02 Long term (current) use of antithrombotics/antiplatelets; Z95.5 Presence of coronary angioplasty implant and graft; I95.9 Hypotension, unspecified; Z88.8 Allergy status to other drugs, medicaments and biological substances; Z79.899 Other long term (current) drug therapy; J43.9 Emphysema, unspecified; R79.1 Abnormal coagulation profile

== ENCOUNTER 2023-01-17 23:04 | Inpatient (IN) ==
[2023-01-17] MEDS ORDERED: MAGNESIUM SULFATE / D5W 1 GM/100 ML BAG IV STA (23:17)
[2023-01-17] MEDS ORDERED: ALBUT/IPRATROP 3MG/0.5MG NEB 3 ML VIAL NEB STA (23:17)
[2023-01-17] MEDS ORDERED: SODIUM CHLORIDE 0.9% 1000ML 1,000 ML IV SCH (23:30)
[2023-01-17 23:53] LABS: Albumin Globulin Ratio 1.2 (0.9-2); Albumin Level 4.1 gm/dl (3.4-5.0); BUN Creatinine Ratio 17.3 (10-20); Bilirubin,Total 2.1 mg/dl (0.2-1.0); Calcium 9.3 mg/dl (8.6-10.3); Creatinine Clr Calc Pharmacy 59.1 ml/min; Est GFR (African American) 87.9 ml/min; Est GFR (Non-African American) 75.8 ml/min; Globulin 3.3 gm/dl (2.5-4.0); Magnesium 1.5 mg/dl (1.7-2.4); Potassium 4.3 mmol/L (3.5-5.1); Total Protein 7.4 gm/dl (6.0-8.3)
[2023-01-18 00:06] LABS: Prothrombin Time 20.6 Seconds (9.0-12.0)
[2023-01-18 00:07] LABS: Thyroid Stimulating Hormone 6.384 uIu/ml (0.300-4.500)
--- NOTE | 2023-01-18 00:24 | Emergency Department Note ---
Impression & Plan Dyspnea, Hypoxia, Acute exacerbation of chronic obstructive pulmonary disease (COPD) ED Provider Note ED Provider Note NAME: CAMILA CASTILLO AGE:77 SEX: Female : 1945 ARRIVES VIA: EMS INFORMANT: Patient ED PROVIDER(s): Lexi Leal DO CHIEF COMPLAINT: Shortness of breath HPI: This is a 77-year-old female presents emergency department via EMS due to shortness of breath. EMS reports patient had significant work of breathing, tachypnea, and was hypoxic in the 80s on their arrival. She does not wear home oxygen. She was given 1 DuoNeb, 2 additional albuterol treatments, and Solu- Medrol in route. She states initially with application of supplemental oxygen via nasal cannula she did not improve, however after she began taking the breathing treatments her work of breathing began to decrease slightly. Patient noted to still be tachypneic and in room distress on arrival here. Patient does have a history of COPD and does still smoke. She also has a history of atrial fibrillation and is anticoagulated. Patient states she did have a urology appointment today to follow-up for treatment for bladder cancer. She denies any known sick contacts. PAST MEDICAL HISTORY:See Below PAST SURGICAL HISTORY:See Below FAMILY HISTORY:See Below SOCIAL HISTORY:See Below HOME MEDICATIONS:See Below ALLERGIES:See Below VITALS:See Below PHYSICAL EXAMINATION: GENERAL: alert, unwell appearing, well nourished, moderate distress, sitting bolt upright EYE EXAM: normal conjunctiva, PERRL and EOM's grossly intact OROPHARYNX: no exudate, no erythema, lips, buccal mucosa, and tongue normal and mucous membranes are moist NECK: supple, no nuchal rigidity, no adenopathy, non-tender LUNGS: Decreased b/l to auscultation. Normal chest wall mechanics, tachypnea noted, increased work of breathing, no wheezes/rhonchi/rales HEART: no murmurs, S1 normal and S2 normal ABDOMEN: abdomen soft, non-tender, normo-active bowel sounds, no masses, no rebound or guarding. BACK: Back is symmetrical on inspection and there is no deformity, no midline tenderness, no CVA tenderness. SKIN: no rashes, petechiae, orbruising UPPER EXTREMITIES: upper extremities are grossly normal. FROM, nml pulses b/l. LOWER EXTREMITIES: No pitting edema. FROM, nml pulses b/l. NEURO EXAM: Normal sensorium, cranial nerves II-XII grossly intact, normal speech, no facial droop,nogross weakness of arms, no gross weakness of legs. Gross sensation intact. No ataxia. Vital Signs: reviewed and remarkable Differential Diagnosis: pneumonia, bronchitis, COPD/Asthma exacerbation, pneumothorax, pulmonary embolism, congestive heart failure, acute coronary syndrome, pleural effusion, COPD exacerbation MEDICAL DECISION MAKING: This is a 77-year-old female brought in by EMS due to increased shortness of breath and hypoxia. Patient required initially nasal cannula and then transition to an oxy mask as she refused CPAP from EMS. She was given 3 ne bulizer treatments and Solu-Medrol by EMS prior to arrival. On arrival patient still with significant increased work of breathing and distress although oxygen saturations were improved. Patient given additional DuoNebs here and transition to high flow nasal cannula she refused BiPAP. Labs drawn and sent, IV established, EKG and chest x-ray performed at bedside and interpreted by me and patient monitored on telemetry. She was started on gentle IV fluid hydration. Slowly her work of breathing did improve. No further hypoxia, respiratory rate improved additionally. Patient initially refused IV magnesium, IV antibiotics, and nasal swab to run [employer] respiratory panel. Eventually after additional bedside discussion patient was in agreement with medications although still declined the nasal swab. Patient continued to be well-appearing while on high flow nasal cannula. Case discussed with the [facility]ist team for additional inpatient evaluation and management. Consultation(s): 0120: DIscussed with Dr. Rodriguez, [facility] hospitalist team, for additional inpatient evaluation/mgmt. ER Treatment Provided: See below 2336: Patient appears much more comfortable now following an additional nebulizer treatment and being started on high flow nasal cannula. Patient refused BiPAP. 0022: Patient refusing antibiotics, IV Tylenol, nasal swab, and any additional IV medications. 0050: After additional bedside conversation, patient now agreeable with IV antibiotics and IV Tylenol. Diagnostics Interpreted By Me: -ECG: Normal sinus at 78, normal axis, normal intervals, nonspecific ST/T wave changes -Cardiac Monitoring: An order was placed for continuous cardiac monitoring. The monitor shows a rate of 68 with normal sinus rhythm. -Laboratory studies: As stated above and show below. -Imaging studies: X-ray Chest: A single view study of the chest was reviewed and was negative for cardiomegaly, focal infiltrate, effusion, pulmonary edema, or wide mediastinum. Slightly increased markings on the right lower lobe compared to prior. Triage Nursing Note Reviewed Prior/Outside Records Reviewed -prior echo reviewed Critical Care: Critical care of 48 min performed to assess and manage high likelihood of life- threatening dyspnea and hypoxia, involving labs and imaging performed with assessment to evaluate dyspnea diagnosis with frequent reassessment. This time includes bedside time, treatment discussions with patient/family/consultants, documentation time and excludes procedure time. Past Med/Surg History Medical History (Updated 01/18/23 @ 08:40 by Tee Rodriguez MD) CAD (coronary artery disease), elem coronary artery COPD (chronic obstructive pulmonary disease) Emphysema of lung Hyperlipidemia Hypertension Prediabetes Tobacco abuse Venous insufficiency Surgical History H/O: hysterectomy S/P appendectomy S/P right coronary artery (RCA) stent placement Family History Other Colon cancer Social History Smoking Status: Current every day smoker Tobacco Type: Cigarettes Cigarettes Per Day: 3-5; Second Hand Exposure: No; Do You Dip or Chew Tobacco: No; Hx Alcohol Use: Yes Alcohol type: wine Alcohol Intake Frequency Comment: 1-2 gl asses of wine 3-5 days per week Hx Substance Use: No Preferred Language: Indonesian Communication Ability: Effective [employer]in[employer] Required: No Beliefs That Will Affect Care: None Current Living Situation: Alone Feels Safe at Home: Yes Assistive Devices: None Allergies Allergies Allergy/AdvReac Type Severity Reaction Status Date / Time dog dander Allergy Severe congestion, Verified 01/17/23 23:50 SOB valsartan Allergy Severe Edema Verified 01/17/23 23:50 face/lips/tongue. NAI Inhibitors Allergy Unknown Cough. Verified 01/17/23 23:50 nickel Allergy Unknown Rash. Verified 01/17/23 23:50 levofloxacin [From Levaquin] Allergy Hives Unverified 01/17/23 23:50 FLUARIX Allergy Unknown Unknown. Uncoded 01/17/23 23:50 Home Meds Home Medications Medication Instructions Recorded Confirmed furosemide 20 mg tablet 20 mg PO QAM 10/08/18 01/17/23 nitroglycerin 0.4 mg sublingual 0.4 mg sublingual DIRECTED PRN 04/19/19 01/17/23 tablet Chest Pain sotalol 80 mg tablet 80 mg PO BID 04/19/19 01/17/23 albuterol sulfate 90 mcg/actuation 2 puff inhalation Q4 PRN 09/09/21 01/17/23 aerosol inhaler (ProAir HFA) cough,shortness of breath,wheeze atorvastatin 40 mg tablet 40 mg PO QAM 09/09/21 01/17/23 aspirin 81 mg tablet,delayed 81 mg PO QAM 01/17/23 01/17/23 release azelastine 137 mcg (0.1 %) nasal 1 spray intranasal [facility] 01/17/23 01/17/23 spray aerosol budesonide 160 mcg-glycopyr 9 2 inh inhalation [facility] 01/17/23 01/17/23 mcg-formot 4.8 mcg/actuation HFA inhaler (Breztri Aerosphere) spironolactone 25 mg tablet 25 mg PO QAM 01/17/23 01/17/23 warfarin 2.5 mg tablet 2.5 mg PO DAILY 01/17/23 01/17/23 Results & Data (ED) Vital Signs Vital Signs - 24 hr 01/17/23 23:11 01/17/23 23:11 01/17/23 23:33 Temperature 38.0 C H Temperature Source Oral Pulse Rate 77 Pulse Rate [Apical] 74 Pulse Rhythm [Apical] Respiratory Rate 38 H 20 Respiratory Effort / Characteristics Spontaneous Spontaneous Respiratory Depth Normal Respiratory Pattern Tachypnea Tachypnea Blood Pressure 126/45 L Blood Pressure [Right Arm] Blood Pressure Mean 72 Blood Pressure Mean [Right Arm] Blood Pressure Position Sitting Blood Pressure Position [Right Arm] Pulse Oximetry 94 98 Oxygen Delivery Method Nasal Cannula High Flow Nasal Cannula Oxygen Flow Rate 6 30 Fraction of Inspired Oxygen 40 Sepsis Recent Fever Within 48 Hours Yes Sepsis New/Unexplained Change in Mental Status N/A Sepsis Action Taken by Nursing No Action Required 01/17/23 23:27 01/17/23 23:17 01/18/23 00:05 Temperature Temperature Source Pulse Rate 75 Pulse Rate [Apical] 73 67 Pulse Rhythm [Apical] Regular Respiratory Rate 20 26 H Respiratory Effort / Characteristics Spontaneous Non-Labored Spontaneous Respiratory Depth Normal Respiratory Pattern Blood Pressure Blood Pressure [Right Arm] Blood Pressure Mean Blood Pressure Mean [Right Arm] Blood Pressure Position Blood Pressure Position [Right Arm] Pulse Oximetry 98 97 Oxygen Delivery Method High Flow Nasal Cannula High Flow Nasal Cannula Oxygen Flow Rate 30 30 Fraction of Inspired Oxygen 40 Sepsis Recent Fever Within 48 Hours Sepsis New/Unexplained Change in Mental Status Sepsis Action Taken by Nursing 01/18/23 00:45 01/18/23 01:27 01/18/23 01:42 Temperature 37.6 C H Temperature Source Oral Pulse Rate Pulse Rate [Apical] 67 61 Pulse Rhythm [Apical] Respiratory Rate 24 20 Respiratory Effort / Characteristics Non-Labored Spontaneous Non-Labored Spontaneous Respiratory Depth Normal Normal Respiratory Pattern Blood Pressure Blood Pressure [Right Arm] 99/52 L 97/54 L Blood Pressure Mean Blood Pressure Mean [Right Arm] 67 68 Blood Pressure Position Blood Pressure Position [Right Arm] Sitting Sitting Pulse Oximetry 97 96 Oxygen Delivery Method High Flow Nasal Cannula High Flow Nasal Cannula Oxygen Flow Rate 30 Fraction of Inspired Oxygen Sepsis Recent Fever Within 48 Hours Sepsis New/Unexplained Change in Mental Status Sepsis Action Taken by Nursing 01/18/23 02:48 01/18/23 03:11 Temperature Temperature Source Pulse Rate Pulse Rate [Apical] 61 62 Pulse Rhythm [Apical] Respiratory Rate 20 18 Respiratory Effort / Characteristics Non-Labored Spontaneous Non-Labored Spontaneous Respiratory Depth Normal Respiratory Pattern Blood Pressure Blood Pressure [Right Arm] 91/49 L Blood Pressure Mean Blood Pressure Mean [Right Arm] 63 Blood Pressure Position Blood Pressure Position [Right Arm] Pulse Oximetry 98 95 Oxygen Delivery Method High Flow Nasal Cannula High Flow Nasal Cannula Oxygen Flow Rate 30 30 Fraction of Inspired Oxygen 40 Sepsis Recent Fever Within 48 Hours Sepsis New/Unexplained Change in Mental Status Sepsis Action Taken by Nursing Laboratory Data 01/17/23 23:20 01/17/23 23:20 Lab Results 01/17/23 01/17/23 01/17/23 Range/Units 23:20 23:20 23:20 WBC 11.37 H (4.8-10.8) K/ul RBC 5.38 (4.20-5.40) M/uL Hgb 16.8 H (12.0-16.0) g/dl Hct 49.1 H (37.0-47.0) % MCV 91.3 (80.0-100.0) fL MCH 31.2 (25.0-34.0) pg MCHC 34.2 (32.0-36.0) g/dL RDW Std Deviation 46.5 H (36.4-46.3) fL RDW Coeff of Anais 13.7 (11.5-14.5) % Plt Count 146 (130-400) K/uL MPV 12.3 (9.4-12.4) fL Immature Gran % (Auto) 0.4 % Neut % (Auto) 89.4 % Lymph % (Auto) 6.3 % [place] % (Auto) 3.2 % Eos % (Auto) 0.4 % Baso % (Auto) 0.3 % Neut # (Auto) 10.17 H (1.40-6.50) K/uL Lymph # (Auto) 0.72 L (1.2-3.4) K/uL [place] # (Auto) 0.36 (0.11-0.59) K/uL Eos # (Auto) 0.05 (0-0.50) K/uL Baso # (Auto) 0.03 (0-0.2) K/uL Immature Gran # (Auto) 0.04 (0.01-0.20) K/uL Platelet Estimate Decreased L (Normal) RBC Morphology Unremarkable PT (9.0-12.0) Seconds INR (0.9-1.1) Sodium 135 L (136-145) mmol/L Potassium 4.3 (3.5-5.1) mmol/L Chloride 97 L (98-107) mmol/L Carbon Dioxide 31 (21-32) mmol/L Anion Gap 7 (3-11) BUN 13 (6-23) mg/dl Creatinine 0.75 (0.6-1.2) mg/dl Est Cr Clr Drug Dosing 59.1 ml/min Est GFR ( Amer) 87.9 ml/min Est GFR (Non-Af Amer) 75.8 ml/min BUN/Creatinine Ratio 17.3 (10-20) Glucose 95 (70-99(Fasting)) mg/dl Calcium 9.3 (8.6-10.3) mg/dl Magnesium 1.5 L (1.7-2.4) mg/dl Total Bilirubin 2.1 H (0.2-1.0) mg/dl AST 23 (13-39) U/L ALT 18 (7-52) U/L Alkaline Phosphatase 70 (34-104) U/L Troponin I High Sens 15.0 H (0-14) pg/ml Total Protein 7.4 (6.0-8.3) gm/dl Albumin 4.1 (3.4-5.0) gm/dl Globulin 3.3 (2.5-4.0) gm/dl Albumin/Globulin Ratio 1.2 (0.9-2) Lipase 17 (11-82) U/L Procalcitonin (0-0.5) ng/ml TSH 6.384 H (0.300-4.500) uIu/ml Free T4 1.04 (0.61-1.60) ng/dl 01/17/23 01/17/23 Range/Units 23:20 23:20 WBC (4.8-10.8) K/ul RBC (4.20-5.40) M/uL Hgb (12.0-16.0) g/dl Hct (37.0-47.0) % MCV (80.0-100.0) fL MCH (25.0-34.0) pg MCHC (32.0-36.0) g/dL RDW Std Deviation (36.4-46.3) fL RDW Coeff of Anais (11.5-14.5) % Plt Count (130-400) K/uL MPV (9.4-12.4) fL Immature Gran % (Auto) % Neut % (Auto) % Lymph % (Auto) % [place] % (Auto) % Eos % (Auto) % Baso % (Auto) % Neut # (Auto) (1.40-6.50) K/uL Lymph # (Auto) (1.2-3.4) K/uL [place] # (Auto) (0.11-0.59) K/uL Eos # (Auto) (0-0.50) K/uL Baso # (Auto) (0-0.2) K/uL Immature Gran # (Auto) (0.01-0.20) K/uL Platelet Estimate (Normal) RBC Morphology PT 20.6 H (9.0-12.0) Seconds INR 2.0 H (0.9-1.1) Sodium (136-145) mmol/L Potassium (3.5-5.1) mmol/L Chloride (98-107) mmol/L Carbon Dioxide (21-32) mmol/L Anion Gap (3-11) BUN (6-23) mg/dl Creatinine (0.6-1.2) mg/dl Est Cr Clr Drug Dosing ml/min Est GFR ( Amer) ml/min Est GFR (Non-Af Amer) ml/min BUN/Creatinine Ratio (10-20) Glucose (70-99(Fasting)) mg/dl Calcium (8.6-10.3) mg/dl Magnesium (1.7-2.4) mg/dl Total Bilirubin (0.2-1.0) mg/dl AST (13-39) U/L ALT (7-52) U/L Alkaline Phosphatase (34-104) U/L Troponin I High Sens (0-14) pg/ml Total Protein (6.0-8.3) gm/dl Albumin (3.4-5.0) gm/dl Globulin (2.5-4.0) gm/dl Albumin/Globulin Ratio (0.9-2) Lipase (11-82) U/L Procalcitonin 0.53 H (0-0.5) ng/ml TSH (0.300-4.500) uIu/ml Free T4 (0.61-1.60) ng/dl Administered Medications Albuterol (Albut/Ipratrop 3mg/0.5mg Neb 3 Ml Vial) 3 ml NEB QIDR DONOVAN; Protocol Stop: 02/17/23 06:59 Last Admin: 01/18/23 06:55 Dose: 3 ml Documented By: KETTY Sodium Chloride (Nss 1000ml) 1,000 mls @ 150 mls/hr IV .Q6H40M ONE Stop: 01/18/23 11:39 Last Admin: 01/18/23 04:50 Dose: 150 mls/hr Documented By: SHANNEN Discontinued Medications Albuterol (Albut/Ipratrop 3mg/0.5mg Neb 3 Ml Vial) 3 ml NEB NOW STA; Protocol Stop: 01/17/23 23:18 Last Admin: 01/17/23 23:30 Dose: 3 ml Documented By: BRIANNA Sodium Chloride (Nss 1000ml) 1,000 mls @ 125 mls/hr IV .Q8H DONOVAN Stop: 02/16/23 23:29 Last Infusion: 01/18/23 04:51 Dose: 0 mls/hr Documented By: Infusion: 01/18/23 02:05 Dose: 0 mls/hr Documented By: Admin: 01/17/23 23:21 Dose: 125 mls/hr Documented By: SHANNEN Magnesium Sulfate/Dextrose (Magnesium Sulfate / D5w) 1 gm in 100 mls @ 100 mls/hr IV NOW STA Stop: 01/18/23 00:16 Last Infusion: 01/18/23 00:25 Dose: 0 mls/hr Documented By: Admin: 01/17/23 23:21 Dose: 100 mls/hr Documented By: SHANNEN Acetaminophen (Ofirmev) 1,000 mg in 100 mls @ 400 mls/hr IV NOW STA Stop: 01/17/23 23:42 Last Infusion: 01/18/23 01:10 Dose: 0 mls/hr Documented By: Admin: 01/18/23 00:53 Dose: 400 mls/hr Documented By: SHANNEN Doxycycline Hyclate 100 mg/ (Dextrose) 110 mls @ 50 mls/hr IV NOW STA Stop: 01/18/23 02:22 Last Infusion: 01/18/23 04:02 Dose: 0 mls/hr Documented By: Admin: 01/18/23 01:24 Dose: 50 mls/hr Documented By: SHANNEN Magnesium Sulfate/Dextrose (Magnesium Sulfate / D5w) 1 gm in 100 mls @ 50 mls/hr IV ONE ONE Stop: 01/18/23 03:57 Last Infusion: 01/18/23 04:02 Dose: 0 mls/hr Documented By: Admin: 01/18/23 02:13 Dose: 50 mls/hr Documented By: SHANNEN Sodium Chloride (Nss 1000ml) 1,000 mls @ 150 mls/hr IV .Q6H40M ONE Stop: 01/18/23 08:41 Last Infusion: 01/18/23 04:51 Dose: 0 mls/hr Documented By: Infusion: 01/18/23 04:14 Dose: 150 mls/hr Documented By: Infusion: 01/18/23 04:05 Dose: 0 mls/hr Documented By: Infusion: 01/18/23 04:04 Dose: 150 mls/hr Documented By: Admin: 01/18/23 02:13 Dose: 100 mls/hr Documented By: SHANNEN Imaging Data Radiologist's Impression: Chest X-Ray 01/17/23 23:17 XR chest 1V portable HISTORY: 77 years-old Female sob acute shortness of breath COMPARISON: 04/19/2019 TECHNIQUE: AP view of the chest FINDINGS: Cardiomediastinal and hilar silhouettes are within normal limits. No pneumothorax, large pleural effusion or overt pulmonary edema. Emphysema with chronic interstitial coarsening and chronic costophrenic angle blunting. Hyperinflation. Bones appear grossly intact. IMPRESSION: Emphysema without acute process. ACT 112: Negative or not required by law. The above report was generated using voice recognition software. It may contain grammatical, syntax or spelling errors. Electronically signed by: Robert Horne M.D. 01/18/2023 7:30 AM Discharge Plan Visit Data Chief Complaint: Respiratory Distress ED Provider: Lexi Leal Discharge Problem: Dyspnea, Hypoxia, Acute exacerbation of chronic obstructive pulmonary disease (COPD) Patient Disposition: Admitted As Inpatient Discharge Instructions Interventions: ED Discharge Assessment Last Done: 01/18/23 03:56
[2023-01-18] MEDS: ACETAMINOPHEN 1,000 MG/100 ML VIAL IV STA ×2 (00:28→00:53)
[2023-01-18] MEDS: DOXYCYCLINE HYCLATE 100 MG in DEXTROSE 5% 100 ML IV STA ×2 (00:28→01:24)
[2023-01-18 00:39] LABS: Basophils # (auto) 0.03 K/uL (0-0.2); Basophils % (auto) 0.3 %; Eosinophils # (auto) 0.05 K/uL (0-0.50); Eosinophils % (auto) 0.4 %; Hematocrit (blood only) 49.1 % (37.0-47.0); Hemoglobin 16.8 g/dl (12.0-16.0); Immature Granulocytes # (auto) 0.04 K/uL (0.01-0.20); Immature Granulocytes % (auto) 0.4 %; Lymphocytes # (auto) 0.72 K/uL (1.2-3.4); Lymphocytes % (auto) 6.3 %; Mean Corpuscular Hemoglobin 31.2 pg (25.0-34.0); Mean Corpuscular Hgb Conc 34.2 g/dL (32.0-36.0); Mean Corpuscular Volume 91.3 fL (80.0-100.0); Mean Platelet Volume 12.3 fL (9.4-12.4); Monocytes # (auto) 0.36 K/uL (0.11-0.59); Monocytes % (auto) 3.2 %; Neutrophils # (auto) 10.17 K/uL (1.40-6.50); Neutrophils % (auto) 89.4 %; Platelet Count 146 K/uL (130-400); Platelet Estimate Decreased (Normal); RBC Morphology Unremarkable; RDW Coefficient of Variation 13.7 % (11.5-14.5); RDW Standard Deviation 46.5 fL (36.4-46.3); Red Blood Count 5.38 M/uL (4.20-5.40); White Blood Count 11.37 K/ul (4.8-10.8)
[2023-01-18 00:45] LABS: T4 Free Thyroxine 1.04 ng/dl (0.61-1.60)
[2023-01-18] MEDS ORDERED: MAGNESIUM SULFATE / D5W 1 GM/100 ML BAG IV ONE (01:58)
[2023-01-18] MEDS ORDERED: SODIUM CHLORIDE 0.9% 1000ML 1,000 ML IV ONE ×2 (02:02→05:00)
--- NOTE | 2023-01-18 03:11 | History & Physical Report ---
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 Coumadin INR goal between 2 and 3 Full code Text document was generated using [email or web address] voice recognition software. It may contain grammatical or spelling errors. Kindly contact undersigned for clarification of any documentation item in qu estion. History of Present Illness Chief Complaint: Worsening shortness of breath Primary Care Provider: Khoa Hui MD History obtained from patient and records. Medical history significant for chronic diastolic heart failure (EF 60 to 64%, TTE 2022), CAD status post stent, PAF on Coumadin, valvular heart disease (mild MR/TR), hypertension, hyperlipidemia, COPD, pulmonary hypertension, prediabetes, bladder cancer status post surgery, ongoing tobacco abuse Last confinement October 2018 for rapid A-fib that is post cardioversion. Patient started on Sotalol. 1 day history of worsening shortness of breath. Symptoms precipitated by sinus drainage. Not sure about sick contacts. Denies aspiration. Denies chest pain, unusual cough symptoms. Compliant with home medications. Denies fluid retention. Doxycycline, neb treatment, Solu-Medrol administered at the ER. Lowest SBP at the ER noted to be 90s. 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 NAI Inhibitors Allergy Unknown Cough. Verified 01/17/23 23:50 nickel Allergy Unknown Rash. Verified 01/17/23 23:50 levofloxacin [From Levaquin] Allergy Hives Unverified 01/17/23 23:50 FLUARIX Allergy Unknown Unknown. Uncoded 01/17/23 23:50 Home Medications Medication Instructions Recorded Confirmed Type furosemide 20 mg tablet 20 mg PO QAM 10/08/18 01/17/23 History nitroglycerin 0.4 mg sublingual 0.4 mg sublingual DIRECTED PRN 04/19/19 01/17/23 History tablet Chest Pain sotalol 80 mg tablet 80 mg PO BID 04/19/19 01/17/23 History albuterol sulfate 90 mcg/actuation 2 puff inhalation Q4 PRN 09/09/21 01/17/23 History aerosol inhaler (ProAir HFA) cough,shortness of breath,wheeze atorvastatin 40 mg tablet 40 mg PO QAM 09/09/21 01/17/23 History aspirin 81 mg tablet,delayed 81 mg PO QAM 01/17/23 01/17/23 History release azelastine 137 mcg (0.1 %) nasal 1 spray intranasal [facility] 01/17/23 01/17/23 History spray aerosol budesonide 160 mcg-glycopyr 9 2 inh inhalation [facility] 01/17/23 01/17/23 History mcg-formot 4.8 mcg/actuation HFA inhaler (Breztri Aerosphere) spironolactone 25 mg tablet 25 mg PO QAM 01/17/23 01/17/23 History warfarin 2.5 mg tablet 2.5 mg PO DAILY 01/17/23 01/17/23 History Past Med/Surg History Medical History (Updated 01/18/23 @ 08:40 by Tee De La Paz MD) CAD (coronary artery disease), [place] coronary artery COPD (chronic obstructive pulmonary disease) Emphysema of lung Hyperlipidemia Hypertension Prediabetes Tobacco abuse Venous insufficiency Surgical History H/O: hysterectomy S/P appendectomy S/P right coronary artery (RCA) stent placement Family History Other Colon cancer Social History (Reviewed 08/16/23 @ 00:24 by YULIYA Pham Smoking Status: Current every day smoker Tobacco Type: Cigarettes Cigarettes Per Day: 3-5; Second Hand Exposure: No; Do You Dip or Chew Tobacco: No; Hx Alcohol Use: Yes Alcohol type: wine Alcohol Intake Frequency Comment: 1-2 glasses of wine 3-5 days per week Hx Substance Use: No Preferred Language: Qatari Communication Ability: Effective Barrer And Tacker Required: No Beliefs That Will Affect Care: None Current Living Situation: Alone Feels Safe at Home: Yes Assistive Devices: None Review of Systems Review of Systems: As per HPI, all other systems reviewed and negative Physical Exam Physical Exam: GENERAL: Slightly uncomfortable, slightly hard of hearing, episodic tachypnea SKIN: Normal color, warm HEENT: [place] palpebral conjunctivae, no ptosis, dry buccal mucosa, nasal cannula in place NECK : Supple, no tenderness CHEST : Decreased breath sounds, scattered expiratory wheezes, no tenderness HEART : RRR, no obvious murmurs ABDOMEN: Some distention, nontender EXTREMITIES : Minimal LE swelling, no LE tenderness, no other conspicuous deformities noted NEUROLOGIC : Coherent, no facial asymmetry, slightly hard of hearing, no other gross focality Results & Data Results & Data Vital Signs (Past 12 Hours) Vital Signs Temp Pulse Pulse Resp BP BP Pulse Ox 01/18/23 02:48 61 20 91/49 L 98 01/18/23 01:42 61 20 97/54 L 96 01/18/23 01:27 37.6 C H 01/18/23 00:45 67 24 99/52 L 97 01/18/23 00:05 67 26 H 97 01/17/23 23:17 75 01/17/23 23:27 73 20 98 01/17/23 23:33 74 20 98 01/17/23 23:11 38.0 C H 77 38 H 126/45 L 94 O2 Del Method O2 Flow Rate FiO2 01/18/23 02:48 High Flow Nasal Cannula 30 01/18/23 01:42 High Flow Nasal Cannula 30 01/18/23 01:27 01/18/23 00:45 High Flow Nasal Cannula 01/18/23 00:05 High Flow Nasal Cannula 30 01/17/23 23:17 01/17/23 23:27 High Flow Nasal Cannula 30 40 01/17/23 23:33 High Flow Nasal Cannula 30 40 01/17/23 23:11 Nasal Cannula 6 Laboratory Results Laboratory Results WBC 11.37 K/ul (4.8-10.8) H 01/17/23 23:20 RBC 5.38 M/uL (4.20-5.40) 01/17/23 23:20 Hgb 16.8 g/dl (12.0-16.0) H 01/17/23 23:20 Hct 49.1 % (37.0-47.0) H 01/17/23 23:20 MCV 91.3 fL (80.0-100.0) 01/17/23 23:20 MCH 31.2 pg (25.0-34.0) 01/17/23 23:20 MCHC 34.2 g/dL (32.0-36.0) 01/17/23 23:20 RDW Std Deviation 46.5 fL (36.4-46.3) H 01/17/23 23:20 RDW Coeff of Anais 13.7 % (11.5-14.5) 01/17/23 23:20 Plt Count 146 K/uL (130-400) 01/17/23 23:20 MPV 12.3 fL (9.4-12.4) 01/17/23 23:20 Immature Gran % (Auto) 0.4 % 01/17/23 23:20 Neut % (Auto) 89.4 % 01/17/23 23:20 Lymph % (Auto) 6.3 % 01/17/23 23:20 [place] % (Auto) 3.2 % 01/17/23 23:20 Eos % (Auto) 0.4 % 01/17/23 23:20 Baso % (Auto) 0.3 % 01/17/23 23:20 Neut # (Auto) 10.17 K/uL (1.40-6.50) H 01/17/23 23:20 Lymph # (Auto) 0.72 K/uL (1.2-3.4) L 01/17/23 23:20 [place] # (Auto) 0.36 K/uL (0.11-0.59) 01/17/23 23:20 Eos # (Auto) 0.05 K/uL (0-0.50) 01/17/23 23:20 Baso # (Auto) 0.03 K/uL (0-0.2) 01/17/23 23:20 Immature Gran # (Auto) 0.04 K/uL (0.01-0.20) 01/17/23 23:20 Platelet Estimate Decreased (Normal) L 01/17/23 23:20 RBC Morphology Unremarkable 01/17/23 23:20 PT 20.6 Seconds (9.0-12.0) H 01/17/23 23:20 INR 2.0 (0.9-1.1) H 01/17/23 23:20 Sodium 135 mmol/L (136-145) L 01/17/23 23:20 Potassium 4.3 mmol/L (3.5-5.1) 01/17/23 23:20 Chloride 97 mmol/L (98-107) L 01/17/23 23:20 Carbon Dioxide 31 mmol/L (21-32) 01/17/23 23:20 Anion Gap 7 (3-11) 01/17/23 23:20 BUN 13 mg/dl (6-23) 01/17/23 23:20 Creatinine 0.75 mg/dl (0.6-1.2) 01/17/23 23:20 Est Cr Clr Drug Dosing 59.1 ml/min 01/17/23 23:20 Est GFR ( Amer) 87.9 ml/min 01/17/23 23:20 Est GFR (Non-Af Amer) 75.8 ml/min 01/17/23 23:20 BUN/Creatinine Ratio 17.3 (10-20) 01/17/23 23:20 Glucose 95 mg/dl (70-99(Fasting)) 01/17/23 23:20 Calcium 9.3 mg/dl (8.6-10.3) 01/17/23 23:20 Magnesium 1.5 mg/dl (1.7-2.4) L 01/17/23 23:20 Total Bilirubin 2.1 mg/dl (0.2-1.0) H 01/17/23 23:20 AST 23 U/L (13-39) 01/17/23 23:20 ALT 18 U/L (7-52) 01/17/23 23:20 Alkaline Phosphatase 70 U/L (34-104) 01/17/23 23:20 Troponin I High Sens 15.0 pg/ml (0-14) H 01/17/23 23:20 Total Protein 7.4 gm/dl (6.0-8.3) 01/17/23 23:20 Albumin 4.1 gm/dl (3.4-5.0) 01/17/23 23:20 Globulin 3.3 gm/dl (2.5-4.0) 01/17/23 23:20 Albumin/Globulin Ratio 1.2 (0.9-2) 01/17/23 23:20 Lipase 17 U/L (11-82) 01/17/23 23:20 Procalcitonin 0.53 ng/ml (0-0.5) H 01/17/23 23:20 TSH 6.384 uIu/ml (0.300-4.500) H 01/17/23 23:20 Free T4 1.04 ng/dl (0.61-1.60) 01/17/23 23:20 Diagnostic Findings Chest x-ray as per my interpretation hyperinflation EKG as per my interpretation : Rate 80, NSR, RAD, incomplete RBBB, no ischemia
[2023-01-18] MEDS ORDERED: ACETAMINOPHEN 325 MG TAB PO PRN (03:56)
[2023-01-18] MEDS ORDERED: traMADol HCL 50 MG TABLET PO PRN (03:56)
[2023-01-18] MEDS ORDERED: PROMETHAZINE HCL 6.25 MG in SODIUM CHLORIDE 0.9% 50 ML IV PRN (03:56)
[2023-01-18 06:55] LABS: Base Excess ABG 2.5 mEq/L (-9-1.8); HCO3 ABG 28 mmol/L (19-24); Oxygen Saturation ABG 98.4 % (90-95); PCO2 ABG 48 mmHg (35-46); PO2 ABG 85 mmHg (80-95); pH ABG 7.38 (7.35-7.45)
[2023-01-18] MEDS: ALBUT/IPRATROP 3MG/0.5MG NEB 3 ML VIAL NEB SCH ×4 (06:55→20:00)
[2023-01-18 06:56] LABS: Allen Test Pos (Pos)
[2023-01-18 07:09] LABS: BUN Creatinine Ratio 18.1 (10-20); Calcium 8.1 mg/dl (8.6-10.3); Creatinine Clr Calc Pharmacy 61.6 ml/min; Est GFR (African American) 92.3 ml/min; Est GFR (Non-African American) 79.7 ml/min; Magnesium 2.1 mg/dl (1.7-2.4); Potassium 4.6 mmol/L (3.5-5.1)
[2023-01-18 07:20] LABS: INR 1.9 (0.9-1.1); Prothrombin Time 20.3 Seconds (9.0-12.0)
--- NOTE | 2023-01-18 07:32 | XRay Report ---
XR chest 1V portable HISTORY: 77 years-old Female sob acute shortness of breath COMPARISON: 04/19/2019 TECHNIQUE: AP view of the chest FINDINGS: Cardiomediastinal and hilar silhouettes are within normal limits. No pneumothorax, large pleural effu marian or overt pulmonary edema. Emphysema with chronic interstitial coarsening and chronic costophreni c angle blunting. Hyperinflation. Bones appear grossly intact. IMPRESSION: Emphysema without acute process. ACT 112: Negative or not required by law. The above report was generated using voice recognition software. It may contain grammatical, syntax o r spelling errors. Electronically signed by: Robert Horne M.D. 01/18/2023 7:30 AM
[2023-01-18 07:37] LABS: Hematocrit (blood only) 39.5 % (37.0-47.0); Hemoglobin 13.2 g/dl (12.0-16.0); Mean Corpuscular Hemoglobin 30.7 pg (25.0-34.0); Mean Corpuscular Hgb Conc 33.4 g/dL (32.0-36.0); Mean Corpuscular Volume 91.9 fL (80.0-100.0); Mean Platelet Volume 12.2 fL (9.4-12.4); Platelet Count 124 K/uL (130-400); RDW Coefficient of Variation 13.8 % (11.5-14.5); RDW Standard Deviation 46.6 fL (36.4-46.3); White Blood Count 13.01 K/ul (4.8-10.8)
[2023-01-18 07:38] LABS: Basophils # (auto) 0.02 K/uL (0-0.2); Basophils % (auto) 0.2 %; Echinocytes 1+; Immature Granulocytes # (auto) 0.05 K/uL (0.01-0.20); Immature Granulocytes % (auto) 0.4 %; Lymphocytes # (auto) 0.33 K/uL (1.2-3.4); Lymphocytes % (auto) 2.5 %; Monocytes # (auto) 0.23 K/uL (0.11-0.59); Monocytes % (auto) 1.8 %; Neutrophils # (auto) 12.38 K/uL (1.40-6.50); Neutrophils % (auto) 95.1 %; Polychromasia 1+
[2023-01-18 08:56] LABS: Troponin I High Sensitivity 11.9 pg/ml (0-14)
[2023-01-18] MEDS ORDERED: ATORVASTATIN 40 MG TAB PO SCH (09:00)
[2023-01-18] MEDS ORDERED: NON-FORMULARY MEDICATION (Budesonide-Glycopyr-Formoterol [Breztri Aerosphere] 160-9-4.8 mc INH SCH (09:00)
[2023-01-18] MEDS ORDERED: predniSONE 20 MG TAB PO SCH (09:00)
[2023-01-18] MEDS: UMECLIDINIUM/VILANTEROL 62.5/25MCG 7 PUFFS/INHALER INH SCH ×2 (11:06→11:15)
[2023-01-18] MEDS: ASPIRIN 81 MG ECTAB PO SCH (11:06)
[2023-01-18] MEDS: predniSONE 20 MG TAB PO SCH (11:07)
[2023-01-18] MEDS: FLUTICASONE FUROATE 200MCG 14 PUFFS/INHALER INH SCH ×2 (11:07→11:14)
[2023-01-18] MEDS: AZELASTINE HCL 0.1% NASAL 200 SPRAYS/27,400 MCG BTL SCH ×2 (11:07→20:39)
[2023-01-18] MEDS ORDERED: Nursing to Pharmacy Communication SCH (11:45)
--- NOTE | 2023-01-18 15:40 | Electrocardiogram Report ---
Test Reason : Blood Pressure : / mmHG Vent. Rate : 078 BPM Atrial Rate : 078 BPM P-R Int : 108 ms QRS Dur : 090 ms QT Int : 404 ms P-R-T Axes : 059 093 087 degrees QTc Int : 460 ms Poor data quality, interpretation may be adversely affected Sinus rhythm with short NM Rightward axis RSR' or QR pattern in V1 suggests right ventricular conduction delay Nonspecific ST abnormality Abnormal ECG When compared with ECG of 19-APR-2019 13:29, NM interval has decreased Confirmed by Jamal Rouse ([id number]) on 01/18/2023 3:39:51 PM Referred By: REFERRED SELF Confirmed By:Jamal Rouse
[2023-01-18] MEDS: DOXYCYCLINE HYCLATE 100 MG CAP PO SCH (16:44)
[2023-01-18] MEDS ORDERED: ALBUTEROL HFA 8 GM INHALER INH PRN (16:54)
[2023-01-18] MEDS ORDERED: NITROGLYCERIN SL 0.4 MG/TAB TAB SL PRN (16:54)
[2023-01-18] MEDS: WARFARIN SOD 2.5 MG TAB PO SCH (17:36)
--- NOTE | 2023-01-18 17:45 | Communication Note ---
Date of Service: January 18, 2023 The patient was seen and examined in telemetry unit .she was admitted early this morning and has been doing reasonably well. Will a full progress note tomorrow. Dr Erasmo Hatch
[2023-01-18] MEDS: SOTALOL HCL 80 MG TAB PO SCH (20:36)
[2023-01-18] MEDS: ATORVASTATIN 40 MG TAB PO SCH (20:39)
[2023-01-18] MEDS ORDERED: METOPROLOL TARTRATE 1 MG/ML VIAL IV STA (21:11)
[2023-01-18] MEDS ORDERED: METOPROLOL TARTRATE 1 MG/ML VIAL IV ONE (21:12)
[2023-01-18] MEDS ORDERED: dilTIAZem HCl 5 MG/ML 5 ML VIAL IV STA (21:56)
[2023-01-18] MEDS ORDERED: STAT IV Infusion **Titration per Protocol STA (21:56)
[2023-01-18] MEDS ORDERED: dilTIAZem HCL 125 MG in DEXTROSE 5% 100 ML IV SCH (22:00)
[2023-01-19 06:30] LABS: Basophils # (auto) 0.01 K/uL (0-0.2); Basophils % (auto) 0.1 %; Eosinophils # (auto) 0.01 K/uL (0-0.50); Eosinophils % (auto) 0.1 %; Hematocrit (blood only) 37.9 % (37.0-47.0); Hemoglobin 12.8 g/dl (12.0-16.0); Immature Granulocytes # (auto) 0.06 K/uL (0.01-0.20); Immature Granulocytes % (auto) 0.5 %; Lymphocytes # (auto) 1.22 K/uL (1.2-3.4); Lymphocytes % (auto) 9.7 %; Mean Corpuscular Hemoglobin 30.8 pg (25.0-34.0); Mean Corpuscular Hgb Conc 33.8 g/dL (32.0-36.0); Mean Corpuscular Volume 91.3 fL (80.0-100.0); Mean Platelet Volume 12.1 fL (9.4-12.4); Monocytes # (auto) 0.86 K/uL (0.11-0.59); Monocytes % (auto) 6.8 %; Neutrophils # (auto) 10.41 K/uL (1.40-6.50); Neutrophils % (auto) 82.8 %; Platelet Count 127 K/uL (130-400); RDW Coefficient of Variation 13.5 % (11.5-14.5); RDW Standard Deviation 45.4 fL (36.4-46.3); Red Blood Count 4.15 M/uL (4.20-5.40); White Blood Count 12.57 K/ul (4.8-10.8)
[2023-01-19] MEDS: ALBUT/IPRATROP 3MG/0.5MG NEB 3 ML VIAL NEB SCH (07:08)
[2023-01-19 07:29] LABS: INR 2.1 (0.9-1.1); Prothrombin Time 22.3 Seconds (9.0-12.0)
[2023-01-19 07:38] LABS: BUN Creatinine Ratio 23.4 (10-20); Calcium 8.4 mg/dl (8.6-10.3); Creatinine Clr Calc Pharmacy 55.5 ml/min; Est GFR (African American) 85.1 ml/min; Est GFR (Non-African American) 73.4 ml/min; Magnesium 1.9 mg/dl (1.7-2.4); Potassium 4.5 mmol/L (3.5-5.1)
[2023-01-19] MEDS: UMECLIDINIUM/VILANTEROL 62.5/25MCG 7 PUFFS/INHALER INH SCH (07:50)
[2023-01-19] MEDS: ASPIRIN 81 MG ECTAB PO SCH (07:51)
[2023-01-19] MEDS: WARFARIN SOD 2.5 MG TAB PO SCH ×2 (07:51→16:46)
[2023-01-19] MEDS: FLUTICASONE FUROATE 200MCG 14 PUFFS/INHALER INH SCH (07:51)
[2023-01-19] MEDS: predniSONE 20 MG TAB PO SCH ×2 (07:51→10:34)
[2023-01-19] MEDS: DOXYCYCLINE HYCLATE 100 MG CAP PO SCH ×2 (07:51→20:10)
[2023-01-19] MEDS: AZELASTINE HCL 0.1% NASAL 200 SPRAYS/27,400 MCG BTL SCH ×2 (10:09→20:11)
[2023-01-19] MEDS: SOTALOL HCL 80 MG TAB PO SCH ×2 (10:09→20:10)
--- NOTE | 2023-01-19 15:42 | Electrocardiogram Report ---
Test Reason : Blood Pressure : / mmHG Vent. Rate : 146 BPM Atrial Rate : 150 BPM P-R Int : 000 ms QRS Dur : 102 ms QT Int : 306 ms P-R-T Axes : 000 101 075 degrees QTc Int : 476 ms Poor data quality, interpretation may be adversely affected Atrial fibrillation with rapid ventricular response Incomplete right bundle branch block Marked ST abnormality, possible inferior subendocardial injury Abnormal ECG When compared with ECG of 17-JAN-2023 23:09, Significant changes have occurred Confirmed by Jamal Rouse ([id number]) on 01/19/2023 3:42:43 PM Referred By: REFERRED SELF Confirmed By:Jamal Rouse
--- NOTE | 2023-01-19 15:57 | Electrocardiogram Report ---
Test Reason : Blood Pressure : / mmHG Vent. Rate : 059 BPM Atrial Rate : 059 BPM P-R Int : 126 ms QRS Dur : 100 ms QT Int : 454 ms P-R-T Axes : 071 073 072 degrees QTc Int : 449 ms Sinus bradycardia Incomplete right bundle branch block Borderline ECG When compared with ECG of 18-JAN-2023 21:00, (unconfirmed) Significant changes have occurred Confirmed by Jamal Rouse ([id number]) on 01/19/2023 3:57:18 PM Referred By: REFERRED SELF Confirmed By:Jamal Rouse
--- NOTE | 2023-01-19 16:13 | Hospitalist Progress Note ---
Date of Service January 19, 2023 Assessment & Plan (1) Acute hypoxemic respiratory failure: Plan: Underlying pulm hypertension Secondary to COPD exacerbation Possible sepsis secondary to atypical infection Clinically much better today Has been on oral doxycycline for possible bronchitis/atypical pneumonia Suspected COPD exacerbation Received 1 dose of prednisone and has been on nebulized bronchodilator Initially no signs and or symptoms of exacerbation No wheezing, no cough. Shortness of breath. No desaturation She is back on her usual inhalers at home Likely discharge tomorrow Demand ischemia-very minimal elevation noted Troponin elevation secondary to illness Serial troponins did not support any ACS hx chronic diastolic heart failure (EF 60 to 64%, TTE 2022), patient on the dry side No signs and or symptoms of fluid overload Chest x-ray is not showing any congestion PAF on Coumadin, INR therapeutic Has been on sotalol to control the rate Went into A-fib with RVR last evening and required short course of intravenous diltiazem IV diltiazem is off now and the patient is back on Xarelto Heart rate is maintained and is in sinus rhythm at rate of 59/min Valvular heart disease (mild MR/TR) No acute issues Hypertension, BP on the lower side Hyperlipidemia, on statin Rx COPD Prediabetes, hemoglobin A1c of 6.06 July 2022 Bladder cancer status post surgery, currently in remission Ongoing tobacco abuse Nicotine replacement therapy as needed DVT prophylaxis. Coumadin INR goal between 2 and 3 Full code Admission and Anticipated Discharge Date Admission Date: January 18, 2023 Subjective 01/19/2023 The patient was seen and examined in telemetry unit She was noted to have A-fib with RVR last evening and started on intravenous Cardizem drip Has had palpitation during that episode Denies any more symptoms this morning but remains anxious Review of Systems Review of Systems: All systems reviewed and are unremarkable except as noted below Physical Exam Physical Exam: Lying in bed comfortably but very anxious Constitutional: + ill appearing and average body habitus Eyes: PERRL, conjunctivae normal, anicteric sclerae ENMT: external ear and nose normal, oropharynx normal Neck: trachea midline, no thyromegaly Respiratory: no respiratory distress Auscultation: + diminished lung sounds; no crackles and no wheezes Cardiovascular: Rate/Rhythm: + irregularly irregular Heart Sounds: normal S1, normal S2 and + murmur Extremities: no edema Gastrointestinal (Abdomen): Inspection/Auscultation: normal bowel sounds; abdomen not distended Percussion/Palpation: abdomen soft; abdomen nontender Musculoskeletal: No acute arthritis involving any joint Neurologic: normal touch/pain/proprioception and moves all extremities; no focal motor deficits Psychiatric: A+Ox3, euthymic affect Lymphatic: no cervical or axillary lymphadenopathy Results & Data Results & Data Vital Signs (Past 12 Hours) Vital Signs Temp Pulse Pulse Resp BP Pulse Ox O2 Del Method 01/19/23 15:29 36.7 C 58 L 18 137/74 92 Room Air 01/19/23 11:38 36.4 C L 56 L 17 117/63 94 Room Air 01/19/23 08:00 60 01/19/23 08:00 Room Air 01/19/23 07:41 36.6 C 59 L 18 113/53 L 90 Room Air 01/19/23 07:08 57 L 16 93 Room Air 01/19/23 04:06 36.4 C L 58 L 16 111/58 L 92 Room Air Laboratory Results Short CBC 01/19/23 Range/Units 05:49 WBC 12.57 H (4.8-10.8) K/ul Hgb 12.8 (12.0-16.0) g/dl Hct 37.9 (37.0-47.0) % Plt Count 127 L (130-400) K/uL BMP 01/19/23 05:49 Sodium 136 Potassium 4.5 Chloride 103 Carbon Dioxide 32 BUN 18 Creatinine 0.77 Glucose 117 H Calcium 8.4 L Medications Administered Current Inpatient Medications Acetaminophen (Acetaminophen 325 Mg Tab) 650 mg PO Q4H PRN PRN Reason: Pain or Fever Stop: 02/17/23 03:55 Albuterol (Albuterol Hfa 8 Gm Inhaler) 2 puffs INH Q4 PRN PRN Reason: cough,shortness of breath,wheeze Stop: 02/17/23 16:53 Aspirin (Aspirin 81 Mg Ectab) [facility] [place] Stop: 02/17/23 08:59 Last Admin: 01/19/23 07:51 Dose: 81 mg Atorvastatin Calcium (Atorvastatin 40 Mg Tab) 40 mg PO HS [facility] Stop: 02/17/23 08:59 Last Admin: 01/18/23 20:39 Dose: 40 mg Azelastine HCl (Azelastine Hcl 0.1% Nasal 200 Sprays/27,400 Mcg Btl) 1 sprays NA AMHS [facility] Stop: 02/17/23 08:59 Last Admin: 01/19/23 10:09 Dose: 1 sprays Doxycycline Hyclate (Doxycycline Hyclate 100 Mg Cap) 100 mg PO BID [facility] Stop: 01/25/23 16:59 Last Admin: 01/19/23 07:51 Dose: 100 mg Fluticasone Furoate (Fluticasone Furoate 200mcg 14 Puffs/Inhaler) 1 puffs INH DAILY [facility] Stop: 02/17/23 08:59 Last Admin: 01/19/23 07:51 Dose: 1 puffs Promethazine HCl 6.25 mg/ (Sodium Chloride) 50.25 mls @ 201 mls/hr IV Q6H PRN PRN Reason: Nausea And Vomiting Stop: 02/17/23 03:55 Nitroglycerin (Nitroglycerin Sl 0.4 Mg/Tab Tab) 0.4 mg SL Q5M PRN PRN Reason: Chest Pain Stop: 02/17/23 16:53 Sotalol HCl (Sotalol Hcl 80 Mg Tab) 80 mg PO BID [facility] Stop: 02/17/23 20:59 Last Admin: 01/19/23 10:09 Dose: 80 mg Tramadol HCl (Tramadol Hcl 50 Mg Tablet) 25 mg PO Q4H PRN PRN Reason: Pain Stop: 02/17/23 03:55 Umeclidinium/Vilanterol (Umeclidinium/Vilanterol 62.5/25mcg 7 Puffs/Inhaler) 1 puffs INH DAILY [facility] Stop: 02/17/23 08:59 Last Admin: 01/19/23 07:50 Dose: 1 puffs Warfarin Sodium (Warfarin Sod 2.5 Mg Tab) 2.5 mg PO DAILY [facility] Stop: 02/17/23 16:59 Last Admin: 01/18/23 17:36 Dose: 2.5 mg
[2023-01-19] MEDS: ATORVASTATIN 40 MG TAB PO SCH (20:10)
[2023-01-20 06:46] LABS: Basophils # (auto) 0.03 K/uL (0-0.2); Basophils % (auto) 0.4 %; Eosinophils # (auto) 0.17 K/uL (0-0.50); Eosinophils % (auto) 2.2 %; Hematocrit (blood only) 39.1 % (37.0-47.0); Hemoglobin 13.3 g/dl (12.0-16.0); Immature Granulocytes # (auto) 0.03 K/uL (0.01-0.20); Immature Granulocytes % (auto) 0.4 %; Lymphocytes # (auto) 2.19 K/uL (1.2-3.4); Lymphocytes % (auto) 28.3 %; Mean Corpuscular Hemoglobin 30.7 pg (25.0-34.0); Mean Corpuscular Volume 90.3 fL (80.0-100.0); Mean Platelet Volume 12.3 fL (9.4-12.4); Monocytes # (auto) 0.74 K/uL (0.11-0.59); Monocytes % (auto) 9.5 %; Neutrophils # (auto) 4.59 K/uL (1.40-6.50); Neutrophils % (auto) 59.2 %; Platelet Count 141 K/uL (130-400); RDW Coefficient of Variation 13.8 % (11.5-14.5); RDW Standard Deviation 45.9 fL (36.4-46.3); Red Blood Count 4.33 M/uL (4.20-5.40); White Blood Count 7.75 K/ul (4.8-10.8)
[2023-01-20 07:01] LABS: Prothrombin Time 21.3 Seconds (9.0-12.0)
[2023-01-20 07:36] LABS: BUN Creatinine Ratio 28.2 (10-20); Calcium 8.6 mg/dl (8.6-10.3); Creatinine Clr Calc Pharmacy 54.7 ml/min; Est GFR (African American) 83.8 ml/min; Est GFR (Non-African American) 72.3 ml/min; Magnesium 1.7 mg/dl (1.7-2.4); Potassium 4.3 mmol/L (3.5-5.1)
[2023-01-20] MEDS: WARFARIN SOD 2.5 MG TAB PO SCH ×2 (08:25→13:39)
[2023-01-20] MEDS: FLUTICASONE FUROATE 200MCG 14 PUFFS/INHALER INH SCH (08:25)
[2023-01-20] MEDS: DOXYCYCLINE HYCLATE 100 MG CAP PO SCH (08:25)
[2023-01-20] MEDS: SOTALOL HCL 80 MG TAB PO SCH (08:25)
[2023-01-20] MEDS: UMECLIDINIUM/VILANTEROL 62.5/25MCG 7 PUFFS/INHALER INH SCH (08:26)
[2023-01-20] MEDS: ASPIRIN 81 MG ECTAB PO SCH (08:26)
[2023-01-20] MEDS: AZELASTINE HCL 0.1% NASAL 200 SPRAYS/27,400 MCG BTL SCH (08:26)
--- NOTE | 2023-01-20 11:28 | Hospitalist Progress Note ---
Date of Service January 20, 2023 Assessment & Plan (1) Acute hypoxemic respiratory failure: Plan: Underlying pulm hypertension Secondary to COPD exacerbation Possible sepsis secondary to atypical infection Clinically much better today Has been on oral doxycycline for possible bronchitis/atypical pneumonia Denies any respiratory symptoms and will be discharged home this afternoon Suspected COPD exacerbation Received 1 dose of prednisone and has been on nebulized bronchodilator Initially no signs and or symptoms of exacerbation No wheezing, no cough. Shortness of breath. No desaturation She is back on her usual inhalers at home Demand ischemia-very minimal elevation noted Troponin elevation secondary to illness Serial troponins did not support any ACS No more cardiac symptoms hx chronic diastolic heart failure (EF 60 to 64%, TTE 2022), patient on the dry side No signs and or symptoms of fluid overload Chest x-ray is not showing any congestion We will continue her home medication PAF on Coumadin, INR therapeutic Has been on sotalol to control the rate Went into A-fib with RVR last evening and required short course of intravenous diltiazem IV diltiazem is off now and the patient is back on Xarelto Heart rate is maintained and is in sinus rhythm at rate of 59/min Her INR is therapeutic at 2.0 Valvular heart disease (mild MR/TR) No acute issues Hypertension, BP on the lower side Hyperlipidemia, on statin Rx COPD Prediabetes, hemoglobin A1c of 6.06 July 2022 Bladder cancer status post surgery, currently in remission Ongoing tobacco abuse Nicotine replacement therapy as needed DVT prophylaxis. Coumadin INR goal between 2 and 3 Full code Will be discharged home this afternoon Admission and Anticipated Discharge Date Admission Date: January 18, 2023 Subjective 01/19/2023 The patient was seen and examined in telemetry unit She was noted to have A-fib with RVR last evening and started on intravenous Cardizem drip Has had palpitation during that episode Denies any more symptoms this morning but remains anxious 01/20/2023 The patient was seen and examined in telemetry unit She has been feeling much better and denies any significant symptoms Heart rate is controlled and in sinus rhythm and no respiratory symptoms Review of Systems Review of Systems: All systems reviewed and are unremarkable except as noted below Physical Exam Physical Exam: Lying in bed comfortably but very anxious Constitutional: + ill appearing and average body habitus Eyes: PERRL, conjunctivae normal, anicteric sclerae ENMT: external ear and nose normal, oropharynx normal Neck: trachea midline, no thyromegaly Respiratory: no respiratory distress Auscultation: + diminished lung sounds; no crackles and no wheezes Cardiovascular: Rate/Rhythm: + irregularly irregular Heart Sounds: normal S1, normal S2 and + murmur Extremities: no edema Gastrointestinal (Abdomen): Inspection/Auscultation: normal bowel sounds; abdomen not distended Percussion/Palpation: abdomen soft; abdomen nontender Musculoskeletal: No acute arthritis involving any joint Neurologic: normal touch/pain/proprioception and moves all extremities; no focal motor deficits Psychiatric: A+Ox3, euthymic affect Lymphatic: no cervical or axillary lymphadenopathy Results & Data Results & Data Vital Signs (Past 12 Hours) Vital Signs Temp Pulse Pulse Resp BP Pulse Ox O2 Del Method 01/20/23 10:28 36.4 C L 59 L 18 131/72 94 Room Air 01/20/23 08:50 57 L 01/20/23 08:50 Room Air 01/20/23 07:21 36.4 C L 60 24 125/67 90 Room Air 01/20/23 04:30 36.3 C L 57 L 16 116/58 L 90 Room Air 01/19/23 23:26 36.5 C 62 20 128/65 92 Room Air Laboratory Results Short CBC 01/20/23 Range/Units 06:09 WBC 7.75 (4.8-10.8) K/ul Hgb 13.3 (12.0-16.0) g/dl Hct 39.1 (37.0-47.0) % Plt Count 141 (130-400) K/uL BMP 01/20/23 06:09 Sodium 137 Potassium 4.3 Chloride 103 Carbon Dioxide 30 BUN 22 Creatinine 0.78 Glucose 85 Calcium 8.6 Medications Administered Current Inpatient Medications Acetaminophen (Acetaminophen 325 Mg Tab) 650 mg PO Q4H PRN PRN Reason: Pain or Fever Stop: 02/17/23 03:55 Albuterol (Albuterol Hfa 8 Gm Inhaler) 2 puffs INH Q4 PRN PRN Reason: cough,shortness of breath,wheeze Stop: 02/17/23 16:53 Aspirin (Aspirin 81 Mg Ectab) [facility]: 02/17/23 08:59 Last Admin: 01/20/23 08:26 Dose: 81 mg Atorvastatin Calcium (Atorvastatin 40 Mg Tab) 40 mg PO HS [facility] Stop: 02/17/23 08:59 Last Admin: 01/19/23 20:10 Dose: 40 mg Azelastine HCl (Azelastine Hcl 0.1% Nasal 200 Sprays/27,400 Mcg Btl) 1 sprays NA AMHS [facility] Stop: 02/17/23 08:59 Last Admin: 01/20/23 08:26 Dose: 1 sprays Doxycycline Hyclate (Doxycycline Hyclate 100 Mg Cap) 100 mg PO BID [facility] Stop: 01/25/23 16:59 Last Admin: 01/20/23 08:25 Dose: 100 mg Fluticasone Furoate (Fluticasone Furoate 200mcg 14 Puffs/Inhaler) 1 puffs INH DAILY [facility] Stop: 02/17/23 08:59 Last Admin: 01/20/23 08:25 Dose: 1 puffs Promethazine HCl 6.25 mg/ (Sodium Chloride) 50.25 mls @ 201 mls/hr IV Q6H PRN PRN Reason: Nausea And Vomiting Stop: 02/17/23 03:55 Nitroglycerin (Nitroglycerin Sl 0.4 Mg/Tab Tab) 0.4 mg SL Q5M PRN PRN Reason: Chest Pain Stop: 02/17/23 16:53 Sotalol HCl (Sotalol Hcl 80 Mg Tab) 80 mg PO BID [facility] Stop: 02/17/23 20:59 Last Admin: 01/20/23 08:25 Dose: 80 mg Tramadol HCl (Tramadol Hcl 50 Mg Tablet) 25 mg PO Q4H PRN PRN Reason: Pain Stop: 02/17/23 03:55 Umeclidinium/Vilanterol (Umeclidinium/Vilanterol 62.5/25mcg 7 Puffs/Inhaler) 1 puffs INH DAILY [facility] Stop: 02/17/23 08:59 Last Admin: 01/20/23 08:26 Dose: 1 puffs Warfarin Sodium (Warfarin Sod 2.5 Mg Tab) 2.5 mg PO DAILY [facility] Stop: 02/17/23 16:59 Last Admin: 01/19/23 16:46 Dose: 2.5 mg
--- NOTE | 2023-01-20 16:58 | Discharge Summary ---
Date of Service January 20, 2023 Admission HPI Per Admitting Provider History obtained from patient and records. Medical history significant for chronic diastolic heart failure (EF 60 to 64%, TTE 2022), CAD status post stent, PAF on Coumadin, valvular heart disease (mild MR/TR), hypertension, hyperlipidemia, COPD, pulmonary hypertension, prediabetes, bladder cancer status post surgery, ongoing tobacco abuse Last confinement October 2018 for rapid A-fib that is post cardioversion. Patient started on Sotalol. 1 day history of worsening shortness of breath. Symptoms precipitated by sinus drainage. Not sure about sick contacts. Denies aspiration. Denies chest pain, unusual cough symptoms. Compliant with home medications. Denies fluid retention. Doxycycline, neb treatment, Solu-Medrol administered at the ER. Lowest SBP at the ER noted to be 90s. 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 Admission Exam Per Admitting Provider Physical Exam: GENERAL: Slightly uncomfortable, slightly hard of hearing, episodic tachypnea SKIN: Normal color, warm HEENT: [place] palpebral conjunctivae, no ptosis, dry buccal mucosa, nasal cannula in place NECK : Supple, no tenderness CHEST : Decreased breath sounds, scattered expiratory wheezes, no tenderness HEART : RRR, no obvious murmurs ABDOMEN: Some distention, nontender EXTREMITIES : Minimal LE swelling, no LE tenderness, no other conspicuous deformities noted NEUROLOGIC : Coherent, no facial asymmetry, slightly hard of hearing, no other gross focality Principal Diagnosis Acute hypoxic respiratory failure, likely bronchitis, COPD, chronic diastolic heart failure, PAF on sotalol Discharge Exam Lying in bed comfortably but very anxious Constitutional + ill appearing and average body habitus Eyes PERRL, conjunctivae normal, anicteric sclerae ENMT external ear and nose normal, oropharynx normal Neck trachea midline, no thyromegaly Respiratory no respiratory distress Auscultation: + diminished lung sounds; no crackles and no wheezes Cardiovascular Rate/Rhythm: + irregularly irregular Heart Sounds: normal S1, normal S2 and + murmur Extremities: no edema Gastrointestinal (Abdomen) Inspection/Auscultation: normal bowel sounds; abdomen not distended Percussion/Palpation: abdomen soft; abdomen nontender Neurologic normal touch/pain/proprioception and moves all extremities; no focal motor deficits Psychiatric A+Ox3, euthymic affect Lymphatic no cervical or axillary lymphadenopathy Discharge Data Allergies Allergy/AdvReac Type Severity Reaction Status Date / Time dog dander Allergy Severe congestion, Verified 01/17/23 23:50 SOB valsartan Allergy Severe Edema Verified 01/17/23 23:50 face/lips/tongue. NAI Inhibitors Allergy Unknown Cough. Verified 01/17/23 23:50 nickel Allergy Unknown Rash. Verified 01/17/23 23:50 levofloxacin [From Levaquin] Allergy Hives Unverified 01/17/23 23:50 FLUARIX Allergy Unknown Unknown. Uncoded 01/17/23 23:50 Consultations 01/18/23 01:22 ED Decision to Admit Stat Hospital Course (1) Acute hypoxemic respiratory failure: Underlying pulm hypertension Secondary to COPD exacerbation Possible sepsis secondary to atypical infection Clinically much better today Has been on oral doxycycline for possible bronchitis/atypical pneumonia Denies any respiratory symptoms and will be discharged home this afternoon Suspected COPD exacerbation Received 1 dose of prednisone and has been on nebulized bronchodilator Initially no signs and or symptoms of exacerbation No wheezing, no cough. Shortness of breath. No desaturation She is back on her usual inhalers at home Demand ischemia-very minimal elevation noted Troponin elevation secondary to illness Serial troponins did not support any ACS No more cardiac symptoms hx chronic diastolic heart failure (EF 60 to 64%, TTE 2022), patient on the dry side No signs and or symptoms of fluid overload Chest x-ray is not showing any congestion We will continue her home medication PAF on Coumadin, INR therapeutic Has been on sotalol to control the rate Went into A-fib with RVR last evening and required short course of intravenous diltiazem IV diltiazem is off now and the patient is back on Xarelto Heart rate is maintained and is in sinus rhythm at rate of 59/min Her INR is therapeutic at 2.0 Valvular heart disease (mild MR/TR) No acute issues Hypertension, BP on the lower side Hyperlipidemia, on statin Rx COPD Prediabetes, hemoglobin A1c of 6.06 July 2022 Bladder cancer status post surgery, currently in remission Ongoing tobacco abuse Nicotine replacement therapy as needed DVT prophylaxis. Coumadin INR goal between 2 and 3 Full code Will be discharged home this afternoon Total Time Total Time Spent Total Time Spent (In Minutes): 35 minutes Discharge Plan Discharge Items Patient Disposition: Home - Self-Care Reason For Visit: RESP FAILURE, HYPOTENSION Discharge Diagnosis: Acute hypoxic respiratory failure, likely bronchitis, COPD, chronic diastolic heart failure, PAF on sotalol Condition on Discharge: Good Activity: Resume your previous activity Non-emergency contact: Primary Care Provider Call non-emergency contact if: you have any medication questions and your symptoms worsen Follow-up/Referrals: Khoa Hui MD [Primary Care Provider] - (Date & Time 01/24/2023 6:00 PM Provider Khoa Hui MD Department Family [facility] ) Diet: Heart Healthy Addtl Attending Provider Instructions: Please take precaution to avoid falls Take your medications as advised Please keep appointment with your healthcare provider Pending Studies at Discharge: No Stand-Alone Forms: My [employer] Smoking Cessation Medications and DC Order Prescriptions: New doxycycline hyclate 100 mg Capsule 100 mg PO BID Qty: 10 0RF Continued furosemide 20 mg Tablet 20 mg PO QAM sotalol 80 mg Tablet 80 mg PO BID nitroglycerin 0.4 mg Tablet, Sublingual 0.4 mg sublingual DIRECTED PRN (Reason: Chest Pain) albuterol sulfate [ProAir HFA] 90 mcg/actuation HFA aerosol inhaler 2 puff INHALATION Q4 PRN (Reason: cough,shortness of breath,wheeze) atorvastatin 40 mg tablet 40 mg PO QAM spironolactone 25 mg tablet 25 mg PO QAM Breztri Aerosphere 160-9-4.8 mcg/actuation HFA aerosol inhaler 2 inh INHALATION [facility] aspirin 81 mg Tablet,Delayed Release (Dr/Ec) 81 mg PO QAM azelastine 137 mcg (0.1 %) aerosol,spray 1 spray INTRANASAL [facility] warfarin 2.5 mg tablet 2.5 mg PO DAILY Discharge Orders: Discharge Order (Routine); Ordered 01/20/23 Ordered By: Temo Hatch Admission Data Admit Date/Time: 01/18/23 03:13 Attending Provider: Temo Hatch Admit Provider: Tee De La Paz Primary Care Provider: Khoa Hui Other Providers: Tee De La Paz Other Interventions: Discharge Summary Assessment (RN) Last Done: 01/20/23 13:14
== END 2023-01-20 14:55 | disposition home or self-care (01) | DRG 871 ==
LOC: ED 23:04 → EDINP 01-18 03:13 → 2S 01-18 10:36

== ENCOUNTER 2023-06-26 16:08 | Observation (INO) ==
--- NOTE | 2023-06-26 16:32 | Emergency Department Note ---
Impression & Plan Substernal chest pain, Elevated troponin, Elevated brain natriuretic peptide (BNP) level ED Provider Note NAME: CAMILA CASTILLO AGE: 78 SEX: F ARRIVES VIA: Ambulance INFORMANT: Patient ED PROVIDER(S): Otf Ford MD CHIEF COMPLAINT: chest pain PLAN: Disposition: Admit MEDICAL DECISION MAKING: The patient is a pleasant 78-year-old woman with a past medical history of COPD, CAD h/o PCI, atrial fibrillation on warfarin, who presents to the emergency department via EMS for acute onset of substernal chest pain rating to her back around 3 PM after she reports eating food. She reports she initially thought was indigestion but it was more severe and uncomfortable then she has had with this in the past. She denies any frequent symptoms of indigestion. She denies any recent illness including fevers, chills, cough, congestion, GI or symptoms. She felt well yesterday and this morning. She denies any recent exertional chest pain. She did have home health come to her house today to assess a chronic right lower extremity wound which has been slow to heal but continually improving which she suffered in May. At this time patient reports no significant presence of her previous pain. She was given full dose aspirin by EMS. She was placed on 2 L nasal cannula due to suspicion of low oxygen as pulse oximetry was difficult to obtain on her fingers. On my evaluation the patient is in no acute distress, afebrile with stable vital signs. O2 saturation 97% on room air obtained via ear probe. She has diminished breath sounds of bilateral lung se[place] with underlying wheeze with normal respiratory effort. EKG without overt acute ischemia. Chest x-ray negative for acute cardiopulmonary process. WBC 11 K with neutrophil predominance though no left shift, nonspecific. H/H 16.1/50.2 similar to prior range of values in the setting of history of COPD. INR 2.2, therapeutic. Chemistry without metabolic acidosis. Potassium 3.3 and magnesium 1.8 with repletion provided. LFTs unremarkable. Initial high- sensitivity troponin 15.3, nonspecific and BNP 357 without prior for comparison though in the setting of having prior echocardiogram demonstrating mildly elevated pulmonary pressures. Lipase is normal. Procalcitonin is undetectable. TSH 5.1, with free T4 within normal limits. Given the patient's elevated BNP he was ordered for 20 mg IV Lasix for suspicion of component of hypervolemia to her chest pain. Heart score, 7, moderate risk, and so reasonable to proceed with admission for further management. Patient was initially in agreement with plan for admission however then had waivered and was insisting discharge. However patient daughter did arrive at the bedside and after extensive discussion all agreed that admission was appropriate given the severity of her onset of pain which has never occurred before. Case was discussed with [facility], who will evaluate the patient for admission. Triage Nursing notes reviewed and agree them. Prior/external medical records reviewed Vital Signs: reviewed Differential diagnosis: Cardiac ischemia, aortic dissection, pulmonary embolism, pneumothorax, pneumonia, pericarditis, myocarditis, esophageal rupture, GERD, cholecystitis, pancreatitis, musculoskeletal, as well as other pathologies. ER treatment provided: See below. Diagnostics interpreted by me: ECG: Sinus rhythm with PACs, 63 bpm, incomplete right bundle branch block, no overt ST elevation or depression, QTc 427, QRS 102. Similar to 01/19/2023 Cardiac Monitoring: An order for continuous cardiac monitoring was placed and demonstrated Sinus rhythm with PACs, 63 bpm Laboratory studies: See below Imaging studies: See below Consultation(s): Case was discussed with Dr. Cage, [facility], who will evaluate the patient for admission. HPI: The patient is a pleasant 78-year-old woman with a past medical history of COPD, CAD h/o PCI, atrial fibrillation on warfarin, who presents to the emergency department via EMS for acute onset of substernal chest pain rating to her back around 3 PM after she reports eating food. She reports she initially thought was indigestion but it was more severe and uncomfortable then she has had with this in the past. She denies any frequent symptoms of indigestion. She denies any recent illness including fevers, chills, cough, congestion, GI or symptoms. She felt well yesterday and this morning. She denies any recent exertional chest pain. She did have home health come to her house today to assess a chronic right lower extremity wound which has been slow to heal but continually improving which she suffered in May. At this time patient reports no significant presence of her previous pain. She was given full dose aspirin by EMS. She was placed on 2 L nasal cannula due to suspicion of low oxygen as pulse oximetry was difficult to obtain on her fingers. ROS: See above HPI for pertinent positives & negatives. A total of 10 systems reviewed and were otherwise negative. VITALS:See Below PHYSICAL EXAMINATION: GENERAL: Awake, alert, fatigued-appearing, in no distress HENT: Normocephalic, atraumatic. Oropharynx with dry mucous membranes and otherwise unremarkable. EYES: Normal conjunctiva. Sclera non-icteric. NECK: Supple. No nuchal rigidity. FROM. No JVD. RESPIRATORY: Clear to auscultation. CARDIAC: Regular rate, normal rhythm. Extremities warm and well perfused. Pulses equal. ABDOMEN: Soft, non-distended. No tenderness to palpation. No rebound or guarding. No masses. RECTAL: Deferred. MUSCULOSKELETAL: Chest examination reveals no tenderness. The back is symmetrical on inspection without obvious abnormality. There is no CVA tenderness to palpation. No joint edema. LOWER EXTREMITIES: Calves are equal size bilaterally and non-tender. Mild bilateral lower extremity pitting edema which patient reports is her baseline. No discoloration. NEURO: Normal sensorium. No sensory or motor deficits noted. SKIN: No rash or jaundice noted. Otf Ford MD Past Med/Surg History Medical History (Updated 06/27/23 @ 00:01 by Otf Ford MD) Venous insufficiency COPD (chronic obstructive pulmonary disease) Prediabetes Hyperlipidemia Tobacco abuse CAD (coronary artery disease), [place] coronary artery Hypertension Emphysema of lung Surgical History H/O: hysterectomy S/P appendectomy S/P right coronary artery (RCA) stent placement Family History Other Colon cancer Social History Smoking Status: Current every day smoker Tobacco Type: Cigarettes Cigarettes Per Day: 3-5; Second Hand Exposure: No; Do You Dip or Chew Tobacco: No; Hx Alcohol Use: Yes Alcohol type: wine Alcohol Intake Frequency Comment: 1-2 glasses of wine 3-5 days per week Hx Substance Use: No Preferred Language: [place] Communication Ability: Effective Director Asset Required: No Beliefs That Will Affect Care: None Current Living Situation: Alone Feels Safe at Home: Yes Assistive Devices: None Allergies Allergies Allergy/AdvReac Type Severity Reaction Status Date / Time dog dander Allergy Severe congestion, Verified 06/26/23 17:10 SOB valsartan Allergy Severe Edema Verified 06/26/23 17:10 face/lips/tongue. NAI Inhibitors Allergy Unknown Cough. Verified 06/26/23 17:10 influenza virus vaccine ts Allergy Unknown Unknown Verified 06/26/23 23:23 [id number] (36 mos,up) [From Fluarix] nickel Allergy Unknown Rash. Verified 06/26/23 17:10 levofloxacin [From Levaquin] Allergy Hives Unverified 06/26/23 17:10 Home Meds Home Medications Medication Instructions Recorded Confirmed furosemide 20 mg tablet 20 mg PO QAM 10/08/18 06/26/23 nitroglycerin 0.4 mg sublingual 0.4 mg sublingual DIRECTED PRN 04/19/19 06/26/23 tablet Chest Pain sotalol 80 mg tablet 80 mg PO BID 04/19/19 06/26/23 albuterol sulfate 90 mcg/actuation 2 puff inhalation Q4 PRN 09/09/21 06/26/23 aerosol inhaler (ProAir HFA) cough,shortness of breath,wheeze atorvastatin 40 mg tablet 40 mg PO HS 09/09/21 06/26/23 aspirin 81 mg tablet,delayed 81 mg PO QAM 01/17/23 06/26/23 release azelastine 137 mcg (0.1 %) nasal 1 spray intranasal [facility] 01/17/23 06/26/23 spray aerosol budesonide 160 mcg-glycopyr 9 2 inh inhalation [facility] 01/17/23 06/26/23 mcg-formot 4.8 mcg/actuation HFA inhaler (Easy TempozTherma Flitei [employer]here) spironolactone 25 mg tablet 25 mg PO QAM 01/17/23 06/26/23 warfarin 2.5 mg tablet 2.5 mg PO DAILY 01/17/23 06/26/23 albuterol sulfate 2.5 mg/3 mL 2.5 mg inhalation DIRECTED PRN 06/26/23 06/26/23 (0.083 %) solution for nebulization sob Results & Data (ED) Vital Signs Vital Signs - 24 hr 06/26/23 16:16 06/26/23 16:16 06/26/23 16:23 Temperature 36.6 C Temperature Source Oral Pulse Rate 60 Pulse Rate [Apical] Pulse Rate from SpO2 Sensor Pulse Rhythm Regular Pulse Strength Normal Respiratory Rate 18 Respiratory Effort / Characteristics Accessory Muscle Use Accessory Muscle Use Respiratory Depth Deep Normal Respiratory Pattern Regular Blood Pressure 116/72 Blood Pressure [Left Arm] Blood Pressure Mean 86 Blood Pressure Mean [Left Arm] Blood Pressure Position Lying Blood Pressure Position [Left Arm] Pulse Oximetry 97 Oxygen Delivery Method Nasal Cannula Room Air Room Air Oxygen Flow Rate 3 Sepsis Recent Fever Within 48 Hours No Sepsis New/Unexplained Change in Mental Status N/A Sepsis Action Taken by Nursing No Action Required 06/26/23 16:24 06/26/23 16:30 06/26/23 17:00 Temperature Temperature Source Pulse Rate 69 60 58 L Pulse Rate [Apical] Pulse Rate from SpO2 Sensor 68 59 L 58 L Pulse Rhythm Pulse Strength Respiratory Rate 16 15 19 Respiratory Effort / Characteristics Respiratory Depth Respiratory Pattern Blood Pressure Blood Pressure [Left Arm] Blood Pressure Mean Blood Pressure Mean [Left Arm] Blood Pressure Position Blood Pressure Position [Left Arm] Pulse Oximetry 98 Oxygen Delivery Method Room Air Oxygen Flow Rate Sepsis Recent Fever Within 48 Hours Sepsis New/Unexplained Change in Mental Status Sepsis Action Taken by Nursing 06/26/23 17:30 06/26/23 17:32 06/26/23 17:54 Temperature Temperature Source Pulse Rate 56 L 65 Pulse Rate [Apical] Pulse Rate from SpO2 Sensor 59 L Pulse Rhythm Pulse Strength Respiratory Rate 22 Respiratory Effort / Characteristics Respiratory Depth Respiratory Pattern Blood Pressure 106/74 Blood Pressure [Left Arm] Blood Pressure Mean 79 Blood Pressure Mean [Left Arm] Blood Pressure Position Blood Pressure Position [Left Arm] Pulse Oximetry Oxygen Delivery Method Oxygen Flow Rate Sepsis Recent Fever Within 48 Hours Sepsis New/Unexplained Change in Mental Status Sepsis Action Taken by Nursing 06/26/23 17:54 06/26/23 18:00 06/26/23 18:00 Temperature Temperature Source Pulse Rate 56 L 53 L Pulse Rate [Apical] Pulse Rate from SpO2 Sensor Pulse Rhythm Pulse Strength Respiratory Rate 16 19 Respiratory Effort / Characteristics Respiratory Depth Respiratory Pattern Blood Pressure 125/62 Blood Pressure [Left Arm] Blood Pressure Mean 81 Blood Pressure Mean [Left Arm] Blood Pressure Position Blood Pressure Position [Left Arm] Pulse Oximetry 95 Oxygen Delivery Method Room Air Oxygen Flow Rate Sepsis Recent Fever Within 48 Hours Sepsis New/Unexplained Change in Mental Status Sepsis Action Taken by Nursing 06/26/23 18:30 06/26/23 19:00 06/26/23 20:44 Temperature Temperature Source Pulse Rate 56 L 60 Pulse Rate [Apical] Pulse Rate from SpO2 Sensor Pulse Rhythm Pulse Strength Respiratory Rate 16 Respiratory Effort / Characteristics Respiratory Depth Respiratory Pattern Blood Pressure 90/78 L Blood Pressure [Left Arm] Blood Pressure Mean 82 Blood Pressure Mean [Left Arm] Blood Pressure Position Blood Pressure Position [Left Arm] Pulse Oximetry 96 95 Oxygen Delivery Method Room Air Oxygen Flow Rate 0 Sepsis Recent Fever Within 48 Hours Sepsis New/Unexplained Change in Mental Status Sepsis Action Taken by Nursing 06/26/23 21:00 06/26/23 22:08 Temperature Temperature Source Pulse Rate 60 Pulse Rate [Apical] 56 L Pulse Rate from SpO2 Sensor Pulse Rhythm Pulse Strength Respiratory Rate 16 16 Respiratory Effort / Characteristics Non-Labored Spontaneous Respiratory Depth Normal Respiratory Pattern Regular Blood Pressure 149/69 H Blood Pressure [Left Arm] 149/69 H Blood Pressure Mean 95 Blood Pressure Mean [Left Arm] 95 Blood Pressure Position Blood Pressure Position [Left Arm] Sitting Pulse Oximetry 98 94 Oxygen Delivery Method Room Air Oxygen Flow Rate Sepsis Recent Fever Within 48 Hours Sepsis New/Unexplained Change in Mental Status Sepsis Action Taken by Nursing Laboratory Data Attestation: I reviewed the patient's lab results. 06/26/23 16:31 06/26/23 16:31 Lab Results 06/26/23 Range/Units 16:31 WBC 11.16 H (4.8-10.8) K/ul RBC 5.25 (4.20-5.40) M/uL Hgb 16.1 H (12.0-16.0) g/dl Hct 50.2 H (37.0-47.0) % MCV 95.6 (80.0-100.0) fL MCH 30.7 (25.0-34.0) pg MCHC 32.1 (32.0-36.0) g/dL RDW Std Deviation 48.0 H (36.4-46.3) fL RDW Coeff of Anais 13.6 (11.5-14.5) % Plt Count 146 (130-400) K/uL MPV 11.6 (9.4-12.4) fL Immature Gran % (Auto) 0.4 % Neut % (Auto) 74.8 % Lymph % (Auto) 16.3 % Emery % (Auto) 7.2 % Eos % (Auto) 1.0 % Baso % (Auto) 0.3 % Neut # (Auto) 8.36 H (1.40-6.50) K/uL Lymph # (Auto) 1.82 (1.20-3.40) K/uL Emery # (Auto) 0.80 H (0.11-0.59) K/uL Eos # (Auto) 0.11 (0.00-0.50) K/uL Baso # (Auto) 0.03 (0.00-0.20) K/uL Immature Gran # (Auto) 0.04 (0.01-0.20) K/uL PT 22.8 H (9.0-12.0) Seconds INR 2.2 H (0.9-1.1) Sodium 139 (136-145) mmol/L Potassium 3.3 L (3.5-5.1) mmol/L Chloride 99 (98-107) mmol/L Carbon Dioxide 34 H (21-32) mmol/L Anion Gap 6 (3-11) BUN 19 (6-23) mg/dl Creatinine 0.77 (0.6-1.2) mg/dl Est Cr Clr Drug Dosing 56.7 ml/min Est GFR ( Amer) 84.5 ml/min Est GFR (Non-Af Amer) 72.9 ml/min BUN/Creatinine Ratio 24.7 H (10-20) Glucose 115 H (70-99(Fasting)) mg/dl Calcium 9.0 (8.6-10.3) mg/dl Phosphorus 2.8 (2.5-4.9) mg/dl Magnesium 1.8 (1.7-2.4) mg/dl Total Bilirubin 1.2 H (0.2-1.0) mg/dl AST 19 (13-39) U/L ALT 15 (7-52) U/L Alkaline Phosphatase 65 (34-104) U/L Troponin I High Sens 15.3 H (0-14) pg/ml B-Natriuretic Peptide 357 H (0-100) pg/ml Total Protein 7.0 (6.0-8.3) gm/dl Albumin 3.8 (3.4-5.0) gm/dl Globulin 3.2 (2.5-4.0) gm/dl Albumin/Globulin Ratio 1.2 (0.9-2) Lipase 21 (11-82) U/L Procalcitonin < 0.05 (0-0.5) ng/ml TSH 5.191 H (0.300-4.500) uIu/ml Free T4 0.99 (0.61-1.60) ng/dl Administered Medications Discontinued Medications Furosemide (Furosemide Inj 20 Mg/2 Ml Vial) 20 mg IV ONE ONE Stop: 06/26/23 18:07 Last Admin: 06/26/23 19:35 Dose: 20 mg Documented By: ALMAZ Potassium Chloride (K Jose / Wtr) 10 meq in 100 mls @ 100 mls/hr IV Q1H DONOVAN Stop: 06/26/23 19:59 Last Admin: 06/26/23 23:38 Dose: 100 mls/hr Documented By: Infusion: 06/26/23 20:41 Dose: Infused Documented By: Admin: 06/26/23 19:35 Dose: 100 mls/hr Documented By: ALMAZ Magnesium Sulfate/Dextrose (Magnesium Sulfate / D5w) 1 gm in 100 mls @ 100 mls/hr IV NOW STA Stop: 06/26/23 18:59 Last Infusion: 06/26/23 23:31 Dose: Infused Documented By: Admin: 06/26/23 21:09 Dose: 100 mls/hr Documented By: ALMAZ Potassium Chloride (Potassium Chloride Crtab 20 Meq Tabcr) 20 meq PO NOW STA Stop: 06/26/23 18:00 Last Admin: 06/26/23 19:36 Dose: 20 meq Documented By: ALMAZ Imaging Data Radiologist's Impression: Chest X-Ray 06/26/23 16:11 XR chest 1V portable CLINICAL HISTORY: Chest pain, nonspecific TECHNIQUE: Single frontal radiograph of the chest was obtained. Comparison: None available at the time of this dictation. FINDINGS: No lines and tubes are seen. Cardiomegaly is noted. The aortic arch is calcified. The lungs are clear. No evidence of pleural effusion or pneumothorax. IMPRESSION: No acute chest disease. ACT 112: Negative or not required by law. Electronically signed by: Jose Arias M.D. 06/26/2023 5:00 PM Discharge Plan Visit Data Chief Complaint: Chest Pain ED Provider: Otf Ford Discharge Problem: Substernal chest pain, Elevated troponin, Elevated brain natriuretic peptide (BNP) level Discharge Instructions Interventions: ED Discharge Assessment Last Done: 06/26/23 23:10
[2023-06-26 16:42] LABS: Basophils # (auto) 0.03 K/uL (0.00-0.20); Basophils % (auto) 0.3 %; Eosinophils # (auto) 0.11 K/uL (0.00-0.50); Hematocrit (blood only) 50.2 % (37.0-47.0); Hemoglobin 16.1 g/dl (12.0-16.0); Immature Granulocytes # (auto) 0.04 K/uL (0.01-0.20); Immature Granulocytes % (auto) 0.4 %; Lymphocytes # (auto) 1.82 K/uL (1.20-3.40); Lymphocytes % (auto) 16.3 %; Mean Corpuscular Hemoglobin 30.7 pg (25.0-34.0); Mean Corpuscular Hgb Conc 32.1 g/dL (32.0-36.0); Mean Corpuscular Volume 95.6 fL (80.0-100.0); Mean Platelet Volume 11.6 fL (9.4-12.4); Monocytes % (auto) 7.2 %; Neutrophils # (auto) 8.36 K/uL (1.40-6.50); Neutrophils % (auto) 74.8 %; Platelet Count 146 K/uL (130-400); RDW Coefficient of Variation 13.6 % (11.5-14.5); Red Blood Count 5.25 M/uL (4.20-5.40); White Blood Count 11.16 K/ul (4.8-10.8)
--- NOTE | 2023-06-26 16:48 | Electrocardiogram Report ---
Test Reason : Blood Pressure : / mmHG Vent. Rate : 063 BPM Atrial Rate : 063 BPM P-R Int : 142 ms QRS Dur : 102 ms QT Int : 418 ms P-R-T Axes : 089 075 069 degrees QTc Int : 427 ms Sinus rhythm with Premature atrial complexes Incomplete right bundle branch block Borderline ECG When compared with ECG of 19-JAN-2023 13:42, Premature atrial complexes are now Present Confirmed by Phong Choi ([id number]) on 06/26/2023 4:48:18 PM Referred By: Confirmed By:Ravindra Choi
--- NOTE | 2023-06-26 17:01 | XRay Report ---
XR chest 1V portable CLINICAL HISTORY: Chest pain, nonspecific TECHNIQUE: Single frontal radiograph of the chest was obtained. Comparison: None available at the time of this dictation. FINDINGS: No lines and tubes are seen. Cardiomegaly is noted. The aortic arch is calcified. The lungs are clear . No evidence of pleural effusion or pneumothorax. IMPRESSION: No acute chest disease. ACT 112: Negative or not required by law. Electronically signed by: Jose Arias M.D. 06/26/2023 5:00 PM
[2023-06-26 17:02] LABS: Albumin Globulin Ratio 1.2 (0.9-2); Albumin Level 3.8 gm/dl (3.4-5.0); BUN Creatinine Ratio 24.7 (10-20); Bilirubin,Total 1.2 mg/dl (0.2-1.0); Creatinine Clr Calc Pharmacy 56.7 ml/min; Est GFR (African American) 84.5 ml/min; Est GFR (Non-African American) 72.9 ml/min; Globulin 3.2 gm/dl (2.5-4.0); Magnesium 1.8 mg/dl (1.7-2.4); Phosphorus 2.8 mg/dl (2.5-4.9); Potassium 3.3 mmol/L (3.5-5.1)
[2023-06-26 17:07] LABS: Troponin I High Sensitivity 15.3 pg/ml (0-14)
[2023-06-26 17:14] LABS: INR 2.2 (0.9-1.1); Prothrombin Time 22.8 Seconds (9.0-12.0)
[2023-06-26 17:16] LABS: Thyroid Stimulating Hormone 5.191 uIu/ml (0.300-4.500)
[2023-06-26 17:51] LABS: T4 Free Thyroxine 0.99 ng/dl (0.61-1.60)
[2023-06-26] MEDS ORDERED: POTASSIUM CHLORIDE CRTAB 20 MEQ TABCR PO STA (17:59)
[2023-06-26] MEDS ORDERED: MAGNESIUM SULFATE / D5W 1 GM/100 ML BAG IV STA (18:00)
[2023-06-26] MEDS ORDERED: FUROSEMIDE INJ 20 MG/2 ML VIAL IV ONE (18:06)
[2023-06-26] MEDS: POTASSIUM CHLORIDE / WTR 10 MEQ/100 ML PLCT IV SCH ×2 (19:35→23:38)
[2023-06-26] MEDS ORDERED: ALBUTEROL 0.083% NEBU SOLN 3 ML VIAL INH PRN (23:10)
[2023-06-26] MEDS ORDERED: ACETAMINOPHEN 325 MG TAB PO PRN (23:10)
[2023-06-26] MEDS ORDERED: NITROGLYCERIN SL 0.4 MG/TAB TAB SL PRN (23:10)
[2023-06-26] MEDS ORDERED: ALBUTEROL HFA 8 GM INHALER INH PRN (23:10)
[2023-06-26] MEDS ORDERED: POLYETHYLENE (MIRALAX) 17 GM PACK PO PRN (23:10)
--- NOTE | 2023-06-26 23:12 | History & Physical Report ---
Date of Service June 26, 2023 Assessment & Plan (1) Chest pain: Plan: 78-year-old female with past medical history significant for hyperlipidemia, prediabetes, COPD, history of chronic respiratory failure, paroxysmal atrial fibrillation, chronic diastolic CHF, pulmonary hypertension, hypertension, history of CAD s/p drug-eluting stent in right coronary artery, right uterine cancer following with [facility], history of bladder cancer right uteroscopy, TURBT February 2022 seems low-grade currently following with urology, lung nodule left upper lobe following with pulmonary plan for repeat CAT scan, ongoing tobacco abuse, chronic cough, chronic shortness of breath, supposed to use oxygen while ambulation but patient seems to be noncompliant comes with chest pain. Around 3 PM patient had severe chest pain middle of the chest radiating to her teeth. It lasted about 1 hour when she called EMS. EMS gave her aspirin which subsided the pain. No nausea. No sweating. No dizziness. No headache. Vision is okay. No sore throat. No fevers. Appetite is okay. No abdominal pain. Normal bowel and bladder movements. States ambulating okay but gets short of breath on ambulation. Currently resting comfortably and hemodynamically stable Chest pain History of CAD Pain subsided after aspirin Initial EKG and troponin okay Will follow serial cardiac enzymes and echo Keep n.p.o. for now cardio consult in am Monitoring telemetry History of CAD s/p stent On aspirin, statin History of A-fib On sotalol and warfarin INR 2.2 History of COPD Continue home inhalers May need two step prior to discharge DVT prophylaxis INR 2.2 Disposition [facility] Full code History of Present Illness Chief Complaint: Chest pain Primary Care Provider: Khoa Hui MD 78-year-old female with past medical history significant for hyperlipidemia, prediabetes, COPD, history of chronic respiratory failure, paroxysmal atrial fibrillation, chronic diastolic CHF, pulmonary hypertension, hypertension, history of CAD s/p drug-eluting stent in right coronary artery, right uterine cancer following with [facility], history of bladder cancer right uteroscopy, TURBT February 2022 seems low-grade currently following with urology, lung nodule left upper lobe following with pulmonary plan for repeat CAT scan, ongoing tobacco abuse, chronic cough, chronic shortness of breath, supposed to use oxygen while ambulation but patient seems to be noncompliant comes with chest pain. Around 3 PM patient had severe chest pain middle of the chest radiating to her teeth. It lasted about 1 hour when she called EMS. EMS gave her aspirin which subsided the pain. No nausea. No sweating. No dizziness. No headache. Vision is okay. No sore throat. No fevers. Appetite is okay. No abdominal pain. Normal bowel and bladder movements. States ambulating okay but gets short of breath on ambulation. Currently resting comfortably and hemodynamically stable Past medical history. As mentioned above Past surgical history. Cardiac cath. Cystoscopy. Cardioversion for rapid A- fib. Hysteroscopy with biopsy. Polypectomy. Ligation of oviducts. Appendectomy. Social history. . Smoked 1 pack a day for 64 years. Currently smoking 3 to 5 cigarettes/day. Alcohol occasionally. No drug use. Family history. Sister had breast cancer. Father had colon cancer. Diabetes. Mother had gastric hemorrhage. Brother had diabetes. Heart disorder. Allergies Allergy/AdvReac Type Severity Reaction Status Date / Time dog dander Allergy Severe congestion, Verified 06/26/23 17:10 SOB valsartan Allergy Severe Edema Verified 06/26/23 17:10 face/lips/tongue. NAI Inhibitors Allergy Unknown Cough. Verified 06/26/23 17:10 influenza virus vaccine ts Allergy Unknown Unknown Verified 06/26/23 23:23 [id number] (36 mos,up) [From Fluarix] nickel Allergy Unknown Rash. Verified 06/26/23 17:10 levofloxacin [From Levaquin] Allergy Hives Unverified 06/26/23 17:10 Home Medications Medication Instructions Recorded Confirmed Type furosemide 20 mg tablet 20 mg PO QAM 10/08/18 06/26/23 History nitroglycerin 0.4 mg sublingual 0.4 mg sublingual DIRECTED PRN 04/19/19 06/26/23 History tablet Chest Pain sotalol 80 mg tablet 80 mg PO BID 04/19/19 06/26/23 History albuterol sulfate 90 mcg/actuation 2 puff inhalation Q4 PRN 09/09/21 06/26/23 History aerosol inhaler (ProAir HFA) cough,shortness of breath,wheeze atorvastatin 40 mg tablet 40 mg PO HS 09/09/21 06/26/23 History aspirin 81 mg tablet,delayed 81 mg PO QAM 01/17/23 06/26/23 History release azelastine 137 mcg (0.1 %) nasal 1 spray intranasal [facility] 01/17/23 06/26/23 History spray aerosol budesonide 160 mcg-glycopyr 9 2 inh inhalation [facility] 01/17/23 06/26/23 History mcg-formot 4.8 mcg/actuation HFA inhaler (Breztri Aerosphere) spironolactone 25 mg tablet 25 mg PO QAM 01/17/23 06/26/23 History warfarin 2.5 mg tablet 2.5 mg PO DAILY 01/17/23 06/26/23 History albuterol sulfate 2.5 mg/3 mL 2.5 mg inhalation DIRECTED PRN 06/26/23 06/26/23 History (0.083 %) solution for nebulization sob Past Med/Surg History Medical History (Updated 06/27/23 @ 00:01 by Otf Ford MD) Venous insufficiency COPD (chronic obstructive pulmonary disease) Prediabetes Hyperlipidemia Tobacco abuse CAD (coronary artery disease), [place] coronary artery Hypertension Emphysema of lung Surgical History H/O: hysterectomy S/P appendectomy S/P right coronary artery (RCA) stent placement Family History Other Colon cancer Social History Smoking Status: Current every day smoker Tobacco Type: Cigarettes Cigarettes Per Day: 3-5; Second Hand Exposure: No; Do You Dip or Chew Tobacco: No; Hx Alcohol Use: No Hx Substance Use: No Preferred Language: Bengali Communication Ability: Effective Clinic Office Manager Required: No Beliefs That Will Affect Care: None Current Living Situation: Alone Other Information That Helps Us Care for You: No Feels Safe at Home: Yes Safety Concerns: Feels Safe At This Time Assistive Devices: Glasses Review of Systems Review of Systems: All systems reviewed & are unremarkable except as noted in HPI & below Physical Exam Physical Exam: General- Not in distress Head- atraumatic Eyes- PERRL. ENT- oropharynx clear Neck- supple, no JVD. Lungs- clear to auscultation no wheezing or crackles. Heart- regular rhythm; no murmur, no gallop. Abdomen- normal bowel sounds, soft, nontender, no distension. Extremities- no pretibial edema, no erythema seen. Neuro- alert, oriented x 3; PERRL, no facial palsy; no dysarthria; moves extremities. Skin- warm & dry Results & Data Results & Data Vital Signs (Past 12 Hours) Vital Signs Temp Pulse Pulse Resp BP BP Pulse Ox 06/26/23 22:08 56 L 16 149/69 H 94 06/26/23 21:00 60 16 149/69 H 98 06/26/23 20:44 60 06/26/23 19:00 56 L 16 90/78 L 95 06/26/23 18:30 96 06/26/23 18:00 53 L 19 95 06/26/23 18:00 125/62 06/26/23 17:54 56 L 16 06/26/23 17:54 106/74 06/26/23 17:32 65 06/26/23 17:30 56 L 22 06/26/23 17:00 58 L 19 06/26/23 16:30 60 15 98 06/26/23 16:24 69 16 06/26/23 16:23 06/26/23 16:16 36.6 C 60 18 116/72 97 06/26/23 16:16 O2 Del Method O2 Flow Rate 06/26/23 22:08 Room Air 06/26/23 21:00 06/26/23 20:44 06/26/23 19:00 06/26/23 18:30 Room Air 0 06/26/23 18:00 Room Air 06/26/23 18:00 06/26/23 17:54 06/26/23 17:54 06/26/23 17:32 06/26/23 17:30 06/26/23 17:00 06/26/23 16:30 Room Air 06/26/23 16:24 06/26/23 16:23 Room Air 06/26/23 16:16 Room Air 06/26/23 16:16 Nasal Cannula 3 Diagnostic Findings Laboratory Results WBC 11.16 K/ul (4.8-10.8) H 06/26/23 16:31 RBC 5.25 M/uL (4.20-5.40) 06/26/23 16:31 Hgb 16.1 g/dl (12.0-16.0) H 06/26/23 16:31 Hct 50.2 % (37.0-47.0) H 06/26/23 16:31 MCV 95.6 fL (80.0-100.0) 06/26/23 16:31 MCH 30.7 pg (25.0-34.0) 06/26/23 16: MCHC 32.1 g/dL (32.0-36.0) 06/26/23 16: RDW Std Deviation 48.0 fL (36.4-46.3) H 06/26/23 16:31 RDW Coeff of Anais 13.6 % (11.5-14.5) 06/26/23 16: Plt Count 146 K/uL (130-400) 06/26/23 16: MPV 11.6 fL (9.4-12.4) 06/26/23 16:31 Immature Gran % (Auto) 0.4 % 06/26/23 16: Neut % (Auto) 74.8 % 06/26/23 16:31 Lymph % (Auto) 16.3 % 06/26/23 16:31 [place] % (Auto) 7.2 % 06/26/23 16:31 Eos % (Auto) 1.0 % 06/26/23 16: Baso % (Auto) 0.3 % 06/26/23 16:31 Neut # (Auto) 8.36 K/uL (1.40-6.50) H 06/26/23 16:31 Lymph # (Auto) 1.82 K/uL (1.20-3.40) 06/26/23 16:31 [place] # (Auto) 0.80 K/uL (0.11-0.59) H 06/26/23 16:31 Eos # (Auto) 0.11 K/uL (0.00-0.50) 06/26/23 16: Baso # (Auto) 0.03 K/uL (0.00-0.20) 06/26/23 16: Immature Gran # (Auto) 0.04 K/uL (0.01-0.20) 06/26/23 16: PT 22.8 Seconds (9.0-12.0) H 06/26/23 16:31 INR 2.2 (0.9-1.1) H 06/26/23 16:31 Sodium 139 mmol/L (136-145) 06/26/23 16:31 Potassium 3.3 mmol/L (3.5-5.1) L 06/26/23 16:31 Chloride 99 mmol/L (98-107) 06/26/23 16:31 Carbon Dioxide 34 mmol/L (21-32) H 06/26/23 16:31 Anion Gap 6 (3-11) 06/26/23 16:31 BUN 19 mg/dl (6-23) 06/26/23 16:31 Creatinine 0.77 mg/dl (0.6-1.2) 06/26/23 16:31 Est Cr Clr Drug Dosing 56.7 ml/min 06/26/23 16:31 Est GFR ( Amer) 84.5 ml/min 06/26/23 16:31 Est GFR (Non-Af Amer) 72.9 ml/min 06/26/23 16:31 BUN/Creatinine Ratio 24.7 (10-20) H 06/26/23 16:31 Glucose 115 mg/dl (70-99(Fasting)) H 06/26/23 16:31 Calcium 9.0 mg/dl (8.6-10.3) 06/26/23 16:31 Phosphorus 2.8 mg/dl (2.5-4.9) 06/26/23 16:31 Magnesium 1.8 mg/dl (1.7-2.4) 06/26/23 16:31 Total Bilirubin 1.2 mg/dl (0.2-1.0) H 06/26/23 16:31 AST 19 U/L (13-39) 06/26/23 16:31 ALT 15 U/L (7-52) 06/26/23 16:31 Alkaline Phosphatase 65 U/L (34-104) 06/26/23 16:31 Troponin I High Sens 15.3 pg/ml (0-14) H 06/26/23 16:31 B-Natriuretic Peptide 357 pg/ml (0-100) H 06/26/23 16:31 Total Protein 7.0 gm/dl (6.0-8.3) 06/26/23 16:31 Albumin 3.8 gm/dl (3.4-5.0) 06/26/23 16:31 Globulin 3.2 gm/dl (2.5-4.0) 06/26/23 16:31 Albumin/Globulin Ratio 1.2 (0.9-2) 06/26/23 16:31 Lipase 21 U/L (11-82) 06/26/23 16:31 Procalcitonin < 0.05 ng/ml (0-0.5) 06/26/23 16:31 TSH 5.191 uIu/ml (0.300-4.500) H 06/26/23 16:31 Free T4 0.99 ng/dl (0.61-1.60) 06/26/23 16:31 Impressions Chest X-Ray 06/26/23 16:11 XR chest 1V portable CLINICAL HISTORY: Chest pain, nonspecific TECHNIQUE: Single frontal radiograph of the chest was obtained. Comparison: None available at the time of this dictation. FINDINGS: No lines and tubes are seen. Cardiomegaly is noted. The aortic arch is calcified. The lungs are clear. No evidence of pleural effusion or pneumothorax. IMPRESSION: No acute chest disease. ACT 112: Negative or not required by law. Electronically signed by: Jose Arias M.D. 06/26/2023 5:00 PM ECG Additional Comments: ECG. Sinus rhythm with PACs at a rate of 63. Incomplete right bundle branch block. Code Status & VTE Plan VTE Prophylaxis Plan VTE Prophylaxis will be ordered: Yes
[2023-06-26] MEDS ORDERED: ATORVASTATIN 40 MG TAB PO STA (23:24)
[2023-06-26] MEDS ORDERED: WARFARIN SOD 2 MG TAB PO STA (23:25)
[2023-06-26] MEDS ORDERED: SOTALOL HCL 80 MG TAB PO ONE (23:30)
[2023-06-26] MEDS ORDERED: POTASSIUM CHLORIDE 10 MEQ / 100ML WTR IV ONE (23:34)
[2023-06-27] MEDS ORDERED: ALBUTEROL 0.083% NEBU SOLN 3 ML VIAL NEB PRN (00:20)
[2023-06-27 03:58] LABS: Basophils # (auto) 0.03 K/uL (0.00-0.20); Basophils % (auto) 0.3 %; Eosinophils # (auto) 0.09 K/uL (0.00-0.50); Hematocrit (blood only) 44.8 % (37.0-47.0); Hemoglobin 14.7 g/dl (12.0-16.0); Immature Granulocytes # (auto) 0.03 K/uL (0.01-0.20); Immature Granulocytes % (auto) 0.3 %; Lymphocytes # (auto) 1.97 K/uL (1.20-3.40); Lymphocytes % (auto) 21.5 %; Mean Corpuscular Hemoglobin 30.7 pg (25.0-34.0); Mean Corpuscular Hgb Conc 32.8 g/dL (32.0-36.0); Mean Corpuscular Volume 93.5 fL (80.0-100.0); Mean Platelet Volume 11.4 fL (9.4-12.4); Monocytes # (auto) 0.73 K/uL (0.11-0.59); Neutrophils # (auto) 6.32 K/uL (1.40-6.50); Neutrophils % (auto) 68.9 %; Platelet Count 134 K/uL (130-400); RDW Coefficient of Variation 13.5 % (11.5-14.5); RDW Standard Deviation 46.3 fL (36.4-46.3); Red Blood Count 4.79 M/uL (4.20-5.40); White Blood Count 9.17 K/ul (4.8-10.8)
--- OUTSIDE RECORDS SUMMARY | 2023-06-27 04:14 | External Medical Summary | Summary of Care ---
Author Name Unknown Organization [facility] Address [address] [place] [address] Phone [phone] Care Team Providers Care Paper Handler Name Role Phone Anabell Hui MD Primary Care Provider + Reason for Referral * Evaluate & Treat - Unlimited Visits (Within 3 days (urgent)) - Authorized Specialty Diagnoses / Procedures Referred By Tasha vásquez Referred To Contact HOME CARE / Home Care Diagnoses Leg laceration, right, initial encounter Anabell Hui MD [address] [place] [address] Referral ID Status Reason Start Date Expiration Date Visits Requested Visits Authorized [id number] Authorized Specialty Services Required 06/08/[phone] Question Answer Referral Priority Within 3 days (urgent) Where should this appointment be scheduled? [facility] Comments Documentation of Izwy-vg-Odrh Encounter Addendum Patient Name: Lila Rolle I certify that this patient is under my care and that I, or a nurse practitioner or physician's assistant tennis coach working with me, had a asef-ju-espw encounter that meets the physician [id number] encounter requirements with this patient on: 06/13/23. Patient was seen at ER for initial wound eval on 06/01 The encounter with the patient was in whole, or in part, for the following medical condition, which is the primary reason for home health care (List medical condition): Wound care I certify that, based on my findings, the following services are medically necessary home health services: Nursing To provide the following care/treatments: (All hospitalists not following the patient after discharge should complete this section): Primary Care Physician to follow home care plan of care after discharge: Anabell Hui MD My clinical findings support the need for the above services because: Further, I certify that my clinical findings support that this patient is homebound (i.e. Absences from home require considerable and taxing effort and are for medical reasons or restoration services or infrequently or of short duration when for other reason) Physician Signature: Date of Signature: Physician Printed Name: anabell Hui MD Reason for Visit * Reason Comments Other Wound check to R low er leg/ankle Encounter Details Date Type Department Care Team (Late st Contact Info) Description 06/08/2023 3:15 PM EST Nurse Only Ancillary [facility] [address] [facility] [place] [address] [facility], Nurse [facility] [address] [place] [address] Other (Wound check to R lower leg/ankle ) Allergies Active Allergy Reactions Criticality Noted Date Comments Marlo Inhibitors Cough 02/23/2009 Valsartan Edema face/lips/tongue High 05/17/2012 Dog Dander Other (Please comment) High 06/11/2015 Congestion, SOB Influenza Vac Split Quad Other (Please comment) 03/15/2012 Sinus pressure, drainage after flu shot on 2 occasions Levofloxacin 10/07/2013 Itching; hives on trunk and lower extremities Nickel Rash 05/20/2008 documented as of this encounter (statuses as of 06/08/2023) Medications Medication Sig Dispensed Refills Start Date End Date Status nitroglycerin (NITROSTAT) 0.4 MG SUBLIndications:CAD in [place] artery Place 1 Tab under the tongue every 5 minutes as needed for Pain, Chest. 25 Tab 3 02/12/2020 Active Aspirin EC 81 MG Oral Tablet Delayed Release Take 1 Tablet by mouth in the morning. 0 01/21/2022 Active Warfarin Sodium 2.5 MG Oral Tablet (Coumadin) TAKE 1 TABLET DAILY DIRECTED BY [facility] 90 Tablet 3 10/17/2022 Active Spironolactone 25 MG Oral Tablet (Aldactone)Indication s:HTN, goal below 130/80,Chronic diastolic heart failure (HCC),Localized edema Take 1 Tablet by mouth in the morning. 90 Tablet 3 11/11/2022 Active Furosemide 20 MG Oral Tablet (Lasix) Take 1 Tablet by mouth in the morning. 90 Tablet 3 12/16/2022 Active ProAir HFA 108 (90 Base) MCG/ACT Inhalation Aerosol SolutionIndications:C OPD, group D, by GOLD 2017 classification ([facility]) Inhale 2 Puffs by mouth every 4 hours as needed for Cough, Shortness of Breath or Wheezing. 54 g 3 01/24/2023 Active Breztri Aerosphere 160-9-4.8 MCG/ACT Inhalation Aerosol (Budeson-Glycopyrrol- Formoterol)Indication s:COPD, group D, by GOLD 2017 classification ([facility]) Inhale 2 Puffs by mouth in the morning and 2 Puffs before bedtime. 32.1 g 3 02/09/2023 Active Sotalol HCl 80 MG Oral Tablet (Betapace)Indications :Paroxysmal atrial fibrillation (HCC) TAKE 1 TABLET TWICE A DAY 180 Tablet 1 04/05/2023 Active Azelastine HCl 0.1 % Nasal Solution (Astelin)Indications: Rhinitis, nonallergic Administer 1 [place] into nostril in the morning and 1 [place] before bedtime. 90 mL 3 04/05/2023 Active Atorvastatin Calcium 40 MG Oral Tablet (Lipitor)Indications: Paroxysmal atrial fibrillation (HCC),Coronary artery disease involving [place] coronary artery of [place] heart without angina pectoris TAKE 1 TABLET IN THE MORNING 90 Tablet 3 05/25/2023 Active Hospital, Clinic, or Other Facility Administered Medication Ordered Dose Route Frequency Start Date End Date Status Albuterol Sulfate (Proventil) (2.5 MG/3ML) 0.083% inhalation solution 2.5 mgIndications:COPD, severe (HCC) 2.5 mg NEBULIZER PRN 02/17/2023 02/17/2024 Active Albuterol Sulfate (Proventil) (5 MG/ML) 0.5% *conc* inhalation solution 2.5 mgIndications:COPD, severe (HCC) 2.5 mg NEBULIZER PRN 02/17/2023 02/17/2024 Active documented as of this encounter (statuses as of 06/08/2023) Active Problems Problem Noted Date Diagnosed Date COPD, group D, by GOLD 2017 classification 05/16 Overview: Per COPD GOLD Classification Ureteral cancer, right 03/10/2022 Bladder mass 01/05/2022 Ureteral lesion, [place], right 01/05/2022 Chronic diastolic heart failure 07/01/2021 Pulmonary hypertension 07/01/2021 Lung nodule 07/01/2021 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 10/25/2018 Prediabetes 07/31/2018 Elevated TSH 07/31/2018 CAD in [place] artery 03/20/2015 Venous insufficiency 03/12/2014 Overview: 03/18 --no DVT LLE Paroxysmal atrial fibrillation 02/04/2014 Overview: 01/16-[facility] hosp w/rapid response. Change to toprol. Start xarelto. 2007? converted with IV diltiazem Routine general medical exam ination at a health care facility 09/05/2013 Overview: 07/28 6MWT 85%.--declined O2. (does she use at night?). Also microalb+ need repeat. 01/24 CT chest nodules--pulm ordered PET. 09/24 CT thigh=---noted 3cm left adnexal complex cyst, also 1+ cm bladder mass. DECLINES vaccines, breast screen. 02/16 ANNAMARIA WNL Rhinitis, nonallergic 10/15/2012 Dyslipidemia 09/10/2010 HTN, goal below 130/80 04/23/2009 Overview: Modified per HTN protocol #16. Abnormal mammogram 10/09/2008 Overview: Ca since 2008 MXr 11/02 - Birad 4 A, refused bx Ovarian cyst 10/09/2008 Tobacco use disorder 05/20/2008 Overview: 10 cigarettes/day x 49 years Smoker unmotivated to quit documented as of this encounter (statuses as of 06/08/2023) Resolved Problems Problem Noted Date Diagnosed Date Resolved Date Localized edema 12/24/2015 04/26/2019 Kidney disease, chronic, sta ge III (GFR 30-59 ml/min) 07/29/2013 03/26/2015 Overview: Per CKD protocol #1 COPD, severe 05/08/2013 05/19/2022 Overview: 06/26 PFT--severe obstruction--1. COPD gold 3 class B, smoking related, emphysematous and chronic bronchitic phenotype, no recent exacerbation, MMRC 3, CAT 6 05/17 PFT-Moderately severe airflow obstruction without acute bronchodilator response. Significant airtrapping and hyperinflation on lung volumes. Moderately reduced diffusing capacity. Emphysema noted on CT Angioedema 07/16/2012 10/07/2013 Dyslipidemia, goal to be determined 12/12/2008 09/10/2010 Polyp of corpus uteri 10/09/20082008 Polyp of corpus uteri 08/20/20082016 Overview: D+C hystero done 10/11 - benign Elevated blood pressure, situational 08/06/2008 11/10/2008 Atrial fibrillation 05/20/2008 05/08/20 13 Overview: Paroxysmal Chest pain 05/20/2008 12/12/2008 HTN, goal to be determined 1 06/23/2008 Overview: Modified per HTN protocol #16. documented as of this encounter (statuses as of 06/08/2023) Immunizations Name Administration Dates Next Due COVID-19 mRNA, LNP-s, No Pre serve, 2-Dose Series ([employer]) 01/26/2022,03/08/2021,08/20/2020,07/30 Pneumococcal Polysaccharide PPV23 (Pneumovax) 05/13/2009 Seasonal Influenza, Split, I IV3, With Preserve, Inj 03/15/2011,03/09/2010,02/19/2009 TDAP (age 11 and older)(Adacel) 09/14/2011 documented as of this encounter Social History Tobacco Use Types Packs/Day Years Used Date Smoking Tobacco: Every Day Cigarettes 1 64 Smokeless Tobacco: Never Comments:02/17/23 currently smoking 3-5 cig/day Alcohol Use Standard Drinks/Week Comments Yes 0 (1 standard drink = 0.6 oz pur e alcohol) occasionally PHQ-2 Answer Date Recorded PHQ-2 Score 0 10/25/2018 Hunger Vital Sign Answer Date Recorded Within the past 12 months, y ou worried that your food would run out before you got the money to buy more. Never true 02/04/20 23 Within the past 12 months, t he food you bought just didn't last and you didn't have money to get more. Never true 02/03/2023 Sex and Gender Information Value Date Recorded Sex Assigned at Not on file Gender Identity Not on file Sexual Orientation Not on file Job Start Date Occupation Industry Not on file Not on file Not on file documented as of this encounter Nursing Notes * Aiyana Castro RN - 06/08/2023 4:32 PM EST Patient was seen to evaluate the dressing on her R lower ankle from wound that she was seen in the ER for a week ago. She had a MARLO wrap with non stick pad to area with steri strips underneath. The non stick pad was dried onto skin with dried blood. I gently soaked the bandage with sterile saline and slowly removed the pad. Skin surrounding wound intact, no maceration seen. Drainage was serosanguinous. No odor present. Steri strips remain intact and were not removed. After cleanind with saline,area was patted dry and scilicone border dressing applied. Patient is on a blood thinner. I believeshe needs a referral for wound evaluation. Area was laceration from the corner of her gem carver and was unable to be sutured. Patient would like home nursing arranged for wound care. They were unaware of follow up appointment yesterday and have been rescheduled with Dr. Hui for 06.13.23. Instructed to report and colored or green/yellow drainage or if develops any odor, fever or chills,or redness to skin around wound. documented in this encounter Plan of Treatment Upcoming Encounters Date Type Department Care Team (Late st Contact Info) Description 06/13/2023 2:40 PM EST Office Visit [facility] [address] [place] [address] Anabell Hui MD [address] [facility] [place] [address] 07/12/2023 1:00 PM EST Anticoagulation Pharmacy, [facility] [address] [place] [address] Pharmacist1, [facility] [address] [place] [address] 07/20/2023 1:30 PM EST [facility] [address] [facility] [place] [address] 07/25/2023 2:00 PM EST Procedure Only Urology, [facility] [address] [facility] [place] [address] Sánchez Kenny MD [address] [facility] [address] [place] [address] 08/25/2023 2:00 PM EDT Office Visit [facility] [address] [facility] [place] [address] Anabell Hui MD [address] [facility] [place] [address] Scheduled Referrals Name Type Priority Associated Diagnoses Orde r Schedule HOME HEALTH REFERRAL OP Referral Within 3 days (urgent) Leg laceration, right, initial encounter Ordered: 06/08/2023 Health Maintenance Due Date Last Done Comments Alpha-1 Antitrypsin 1963 Pneumococcal Vaccine: 65+ Years (2 - PCV) 05/13/2010 05/13/2009 DXA Scan 09/18/2018 09/19/2011, 09/19/2011 Depression Screening 10/26/2019 10/25/2018 *ADVANCE DIRECTIVE NOT ON FILE 07/20/2021 DTaP,Tdap,and Td Vaccines (2 - Td or Tdap) 09/13/2021 09/14/2011 COVID-19 Vaccine (5 - 2022- season) 2023 01/26/2022, 03/08/2021, 08/20/2020, Additional history exists Influenza Vaccine (FLU shot) (#1) 2023 03/15/2011, 03/09/2010, 02/19/2009 HbA1c 07/25/2023 07/25/2022, 09/0 09/2019, 09/27/2018 GFR 09/21/2023 09/20/2022, 04/0 12/2022, 08/22/2022, Additional history exists DISCUSS TOBACCO CESSATION (REFER TO SMARTSET #3291) 02/18/2024 02/17/2023, 03/10/2022, 07/01/2021 O2 ASSESSMENT COMPLETED IN PAST YEAR FOR COPD 02/18/2024 02/17/2023 Albumin/Creatinine Ratio 07/26/2025 07/26/2022 GARDASIL-HPV IMMUNIZATION SERIES Aged Out No longer eligible based on patient's age to complete this topic Hepatitis B Aged Out No longer eligi ble based on patient's age to complete this topic MENINGOCOCCAL (MENACTRA/MENVEO) Aged Out No longer eligible based on patient's age to complete this topic Zoster Vaccines Discontinued documented as of this encounter Medical Devices Not on filedocumented as of this encounter Visit Diagnoses Diagnosis Leg laceration, right, initial encounter- Primary documented in this encounter Advance Directives Latest Code Status on File Code Status Date Activated Date Inactivated Comments Full Code 2022 12:17 PM 2022 6:12 PM This o rder reflects the patients wishes and were consensually agreed upon. Question Answer Comments Discussion of Advance Directives occurred with: Patient Code Status History Code Status Date Activated Date Inactivated Comments Full Code 2022 9:53 AM 2022 12:17 PM This o rder reflects the patients wishes and were consensually agreed upon. Question Answer Comments Discussion of Advance Directives occurred with: Patient Care Teams Paper Handler Relationship Specialty Start Date End Date Anabell Hui MD [address] [place] [address] PCP - General Family Medicine 05/19/14 documented as of this encounter
--- OUTSIDE RECORDS SUMMARY | 2023-06-27 04:14 | External Medical Summary | Summary of Care ---
Author Name Unknown Organization [facility] Address [address] [place] [address] Phone [phone] Care Team Providers Care Associate Product Manager Name Role Phone Khoa Hui MD Primary Care Provider + Reason for Visit * Reason Onset Date Comments Advice 05/25/2023 Encounter Details Date Type Department Care Team (Late st Contact Info) Description 05/25/2023 Telephone Pharmacy Call Center [phone] [place] [address] Pharmacist1, [facility] [address] [facility] [address] Advice Allergies Active Allergy Reactions Criticality Noted Date Comments Marlo Inhibitors Cough 02/23/2009 Valsartan Edema face/lips/tongue High 05/17/2012 Dog Dander Other (Please comment) High 06/11/2015 Congestion, SOB Influenza Vac Split Quad Other (Please comment) 03/15/2012 Sinus pressure, drainage after flu shot on 2 occasions Levofloxacin 10/07/2013 Itching; hives on trunk and lower extremities Nickel Rash 05/20/2008 documented as of this encounter (statuses as of 05/25/2023) Medications Medication Sig Dispensed Refills Start Date End Date Status nitroglycerin (NITROSTAT) 0.4 MG SUBLIndications:CAD in [place] artery Place 1 Tab under the tongue every 5 minutes as needed for Pain, Chest. 25 Tab 3 02/12/2020 Active Aspirin EC 81 MG Oral Tablet Delayed Release Take 1 Tablet by mouth in the morning. 0 01/21/2022 Active Warfarin Sodium 2.5 MG Oral Tablet (Coumadin) TAKE 1 TABLET DAILY DIRECTED BY [facility] 90 Tablet 3 10/17/2022 Active Spironolactone 25 [...] OPD, group D, by GOLD 2017 classification ([facility]) Inhale 2 Puffs by mouth every 4 hours as needed for Cough, Shortness of Breath or Wheezing. 54 g 3 01/24/2023 Active Breztri Aerosphere 160-9-4.8 MCG/ACT Inhalation Aerosol (Budeson-Glycopyrrol- Formoterol)Indication s:COPD, group D, by GOLD 2017 classification ([facility]) Inhale 2 Puffs by mouth in the morning and 2 Puffs before bedtime. 32.1 g 3 02/09/2023 Active Atorvastatin Calcium 40 MG Oral Tablet (Lipitor)Indications: Paroxysmal atrial fibrillation (HCC),Coronary artery disease involving [place] coronary artery of [place] heart without angina pectoris Take 0.5 Tablets by mouth every evening. 0 03/30/2023 Active Sotalol HCl 80 MG Oral Tablet (Betapace)Indications :Paroxysmal atrial fibrillation (HCC) TAKE 1 TABLET TWICE A DAY 180 Tablet 1 04/05/2023 Active Azelastine HCl 0.1 % Nasal Solution (Astelin)Indications: Rhinitis, nonallergic Administer 1 [place] into nostril in the morning and 1 [place] before bedtime. 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 Change to toprol. Start [...] as of this encounter (statuses as of 05/25/2023) Resolved Problems Problem Noted Date Diagnosed Date [...] 05/20/2008 12/12/2008 HTN, goal to be determined 06/23/2008 Overview: Modified per HTN protocol #16. documented as of this encounter (statuses as of 05/25/2023) Immunizations Name Administration Dates Next Due COVID-19 mRNA, LNP-s, No Pre serve, 2-Dose Series ([employer]) 01/26/2022,03/08/2021,08/20/2020,07/30 Pneumococcal Polysaccharide PPV23 (Pneumovax) 05/13/2009 Seasonal [...] on file documented as of this encounter Miscellaneous Notes * Telephone Encounter - Phong Downs [facility] - 05/25/2023 1:49 PM EST Images from the original note were not included. Medication Therapy Disease Management - Anticoagulation Patient: Lila Rolle | : 1945 Subjective Contacts Type Contact Phone/Fax 05/25/2023 01:04 PM EST Phone (Incoming) Lila Rolle (Self) [phone] (H) Patient-Reported Symptoms: Patient Findings Positives: Signs/symptoms of bleeding (patient had cut her foot after tripping on the diswasher door (was open). Foot was bleeding (no injuries any other places). Patient had stitiches placed.) Negatives: Signs/symptoms of thrombosis, Change in health, Change in alcohol use, Change in activity, Upcoming invasive procedure, Missed doses, Extra doses, Change in medications, Change in diet/appetite, Bruising Objective Current Warfarin Dose As of 05/25/2023 Warfarin maintenance plan: 1.25 mg (2.5 mg x 0.5) every Sat; 2.5 mg (2.5 mg x 1) all other days INR Result As of 05/25/2023 INR goal: 2.0-3.0 INR used for dosin.2 (05/24/2023) Assessment & Plan Warfarin Plan As of 05/25/2023 Full warfarin instructions: 05/25: 1.25 mg; Otherwise 1.25 mg every Sat; 2.5 mg all other days Next INR check: 05/31/2023 Repeat PT/INR in 6 day(s) Weekly dose: not changed Additional Dosing Information: Description Given patients aversion to self injections and lower predicted risk Per Cardiology (see 01/13/22 note) okay with NO lovenox bridge. Phong Downs [facility] Clinical Pharmacist 05/25/2023, 1:50 PM * Telephone Encounter - Rashida Laird PHARM Tech - 05/25/2023 1:03 PM EST Caller's name: Lila Preferred call back number(OFFICE NUMBER FOR ): [phone] Reason for call: Pt was seen in [facility] ED for a cut on her foot yesterday. Pt states she wasadvised to contact the [facility] to discuss her INR being at 3.2. See scan in pt encounter for test results. Pt is inquiring on dosing instructions and would like to speak to Gely. Pt is requesting to not leave a VM. Please Advise. Thank you, Rashida Laird Career Professional [facility] ([facility]) (formerly Telepharmacy) 05/25/2023,1:04 PM documented in this encounter Plan of Treatment Upcoming Encounters Date Type Department Care Team (Late st Contact Info) Description 05/31/2023 1:30 PM EST Anticoagulation Pharmacy, [facility] [place] [address] [place] [address] Pharmacist1, [facility] [address] [facility] [place] [address] 07/20/2023 1:30 PM EST Imaging Radiology [facility], [place] [address] [facility] [place] [address] 07/25/2023 2:00 PM EST Procedure Only Urology, [facility] [address] [facility] [place] [address] Sánchez Kenny MD [address] [facility] [address] [place] [address] 08/25/2023 2:00 PM EDT Office Visit Family Practice [facility] [address] [facility] [place] [address] Khoa Hui MD [address] [facility] [place] [address] Health Maintenance Due Date Last Done Comments Alpha-1 Antitrypsin 1961 Pneumococcal Vaccine: 65+ Years (2 - PCV) 05/13/2010 05/13/2009 DXA Scan 09/18/2018 09/19/2011, 09/19/2011 Depression Screening 10/26/2019 10/25/2018 *ADVANCE DIRECTIVE NOT ON FILE 07/20/2021 DTaP,Tdap,and Td Vaccines (2 - Td or Tdap) 09/13/2021 09/14/2011 COVID-19 Vaccine (2022- season) 2023 01/26/2022, 03/08/2021, 08/20/2020, Additional history exists Influenza Vaccine (FLU shot) (#1) 2023 03/15/2011, 03/09/2010, 02/19/2009 HbA1c 07/25/2023 07/25/2022, 09/2019, 09/27/2018 GFR 09/21/2023 09/20/2022, 12/2022, 08/22/2022, Additional history exists DISCUSS TOBACCO CESSATION (REFER TO SMARTSET #7831) 02/18/2024 02/17/2023, 03/10/2022, 07/01/2021 O2 ASSESSMENT COMPLETED [...] Not on filedocumented as of this encounter Procedures Procedure Name Priority Date/Time Associated Diagnosis Comments OUTSIDE LAB-PT/INR Routine 05/24/2023 documented in this encounter Results * OUTSIDE LAB-PT/INR (05/24/2023) INR-OUTSIDE LAB 3.2 History Per Patient LABORATORY documented in this encounter Visit Diagnoses Diagnosis Paroxysmal atrial fibrillation (HCC)- Primary Atrial fibrillation documented in this encounter Advance Directives Latest [...] Advance Directives occurred with: Patient Care Teams Associate Product Manager Relationship Specialty Start Date End Date Khoa Hui MD [address] [place] [address] PCP - General Family Medicine 05/19/14 documented as of this encounter"
--- OUTSIDE RECORDS SUMMARY | 2023-06-27 04:14 | External Medical Summary | Summary of Care ---
Author Name Unknown Organization [facility] Address [address] [place] [address] Phone [phone] Care Team Providers Care Wedding Makeup Artist Name Role Phone Khoa Hui MD Primary Care Provider + Reason for Visit * Reason Onset Date Comments Advice 06/08/2023 Encounter Details Date Type Department Care Team (Late st Contact Info) Description 06/08/2023 Telephone Family Practice [facility] [address] [facility] [place] [address] Khoa Hui MD 132 [facility] [place] [address] Advice Allergies Active Allergy Reactions Criticality Noted [...] Status nitroglycerin (NITROSTAT) 0.4 MG SUBLIndications:CAD in [place] graham artery Place 1 Tab under the tongue every 5 minutes as needed for Pain, Chest. 25 Tab 3 02/12/2020 Active Aspirin EC 81 MG Oral Tablet Delayed Release Take 1 Tablet by mouth in the morning. 0 01/21/2022 Active Warfarin Sodium 2.5 MG Oral Tablet (Coumadin) TAKE 1 TABLET DAILY DIRECTED BY [facility] 90 Tablet 3 10/17/2022 Active Spironolactone [...] OPD, group D, by GOLD 2017 classification ([facility]) Inhale 2 Puffs by mouth every 4 hours as needed for Cough, Shortness of Breath or Wheezing. 54 g 3 01/24/2023 Active Breztri Aerosphere 160-9-4.8 MCG/ACT Inhalation Aerosol (Budeson-Glycopyrrol- Formoterol)Indication s:COPD, group D, by GOLD 2017 classification ([facility]) Inhale 2 Puffs by mouth in the morning and 2 Puffs before bedtime. 32.1 g 3 02/09/2023 Active Sotalol HCl 80 MG Oral Tablet (Betapace)Indications :Paroxysmal atrial fibrillation (HCC) TAKE 1 TABLET TWICE A DAY 180 Tablet 1 04/05/2023 Active Azelastine HCl 0.1 % Nasal Solution (Astelin)Indications: Rhinitis, nonallergic Administer 1 Mosby into nostril in the morning and 1 Mosby before bedtime. 90 mL 3 04/05/2023 Active Atorvastatin Calcium 40 MG Oral Tablet (Lipitor)Indications: Paroxysmal atrial fibrillation (HCC),Coronary artery disease involving [place]ham coronary artery of [place] heart without angina pectoris TAKE 1 TABLET [...] right 03/10/2022 Bladder mass 01/05/2022 Ureteral lesion, [place], right 01/05/2022 Chronic diastolic heart failure 07/01/2021 Pulmonary hypertension 07/01/2021 Lung nodule 07/01/2021 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 10/25/2018 Prediabetes 07/31/2018 Elevated TSH 07/31/2018 CAD in [place] artery 03/20/2015 Venous insufficiency 03/12/2014 Overview: 03/18 --no DVT LLE Paroxysmal atrial fibrillation 02/04/2014 Overview: 01/16-[facility] hosp w/rapid response. Change to toprol. Start [...] mRNA, LNP-s, No Pre serve, 2-Dose Series (Kindara) 01/26/2022,03/08/2021,08/20/2020,07/30 Pneumococcal Polysaccharide PPV23 (Pneumovax) 05/13/2009 Seasonal [...] encounter Miscellaneous Notes * Telephone Encounter - Aiyana Castro RN - 06/08/2023 3:41 PM EST Attempted to call patient and her daughter back. No answer. Left detailed VM with my callback # andalso instructions to soak guaze in saline to loosen the dressing from the wound to try to remove. Will attempt to reach out to patient/daughter again. * Telephone Encounter - Aleena Segovia OSA - 06/08/2023 3:00 PM EST Patients daughter calling - she is with the patient now trying to change bandage on leg - daughter states the gauze is stuck to steri strips and feels like it will pull the wound open. Would like nurse call back. Jo Ann [phone] documented in this encounter Plan of Treatment Upcoming Encounters Date Type Department Care Team (Late st Contact Info) Description 06/13/2023 2:40 PM EST Office Visit [facility] 132 [facility] [place] [address] Khoa Hui MD 132 [facility] [place] [address] 07/12/2023 1:00 PM EST Anticoagulation Pharmacy, [facility] [address] [place] [address] Pharmacist1, [facility] 200 [facility] [place] [address] 07/20/2023 1:30 PM EST [facility] 132 [facility] [place] [address] 07/25/2023 2:00 PM EST Procedure Only Urology, [facility] 132 [facility] [place] [address] Sánchez Kenny MD 27 [facility] [address] [place] [address] 08/25/2023 2:00 PM EDT Office Visit Family Practice [facility] 132 [facility] [place] [address] Khoa Hui MD 132 [facility] [place] [address] Health Maintenance Due Date Last Done Comments Alpha-1 Antitrypsin 1961 Pneumococcal Vaccine: 65+ Years (2 - PCV) 05/13/2010 05/13/2009 DXA Scan 09/18/2018 09/19/2011, 09/19/2011 Depression Screening 10/26/2019 10/25/2018 *ADVANCE DIRECTIVE NOT ON FILE 07/20/2021 DTaP,Tdap,and Td Vaccines (2 - Td or Tdap) 09/13/2021 09/14/2011 COVID-19 Vaccine ( season) 2023 01/26/2022, 03/08/2021, 08/20/2020, Additional history exists Influenza Vaccine (FLU shot) (#1) 2023 03/15/2011, 03/09/2010, 02/19/2009 HbA1c 07/25/2023 07/25/2022, 09/2019, 09/27/2018 GFR 09/21/2023 09/20/2022, 0 12/2022, 08/22/2022, Additional history exists DISCUSS TOBACCO [...] Not on filedocumented as of this encounter Advance Directives Latest Code Status [...] Advance Directives occurred with: Patient Care Teams Wedding Makeup Artist Relationship Specialty Start Date End Date Khoa Hui MD [address] [place] [address] PCP - General Family Medicine 05/19/14 documented as of this encounter
--- OUTSIDE RECORDS SUMMARY | 2023-06-27 04:14 | External Medical Summary | Summary of Care ---
Author Name Unknown Organization [facility] Address [address] [place] [address] Phone [phone] Care Team Providers Care Team Primary Care Physician Name Role Phone Khoa Hui MD Primary Care Provider + Reason for Visit * Reason Comments Emergency Department Follow-Up [facility] 05/06 : RLE laceration Encounter Details Date Type Department Care Team (Late st Contact Info) Description 06/13/2023 2:40 PM EST Office Visit [facility] [address] Khoa Hui MD 132 [facility] [place] [address] Laceration of right lower extremity, subsequent encounter*; COPD, severe (HCC); Chronic diastolic heart failure (HCC); Chronic respiratory failure with hypoxia (HCC); Paroxysmal atrial fibrillation (HCC) Allergies Active Allergy Reactions Criticality Noted Date Comments Marlo Inhibitors Cough 02/23/2009 Valsartan Edema face/lips/tongue High 05/17/2012 Dog Dander Other (Please comment) High 06/11/2015 Congestion, SOB Influenza Vac Split Quad Other (Please comment) 03/15/2012 Sinus pressure, drainage after flu shot on 2 occasions Levofloxacin 10/07/2013 Itching; hives on trunk and lower extremities Nickel Rash 05/20/2008 documented as of this encounter (statuses as of 06/13/2023) Medications Medication Sig Dispensed Refills Start Date End Date Status nitroglycerin (NITROSTAT) 0.4 MG SUBLIndications:CAD in qaw[place]ang[place] artery Place 1 Tab under the tongue every 5 minutes as needed for Pain, Chest. 25 Tab 3 02/12/2020 Active Aspirin EC 81 MG Oral Tablet Delayed Release Take 1 Tablet by mouth in the morning. 0 01/21/2022 Active Warfarin Sodium 2.5 MG Oral Tablet (Coumadin) TAKE 1 TABLET DAILY DIRECTED BY [facility] 90 Tablet 3 10/17/2022 Active Spironolactone [...] OPD, group D, by GOLD 2017 classification ([facility]) Inhale 2 Puffs by mouth every 4 hours as needed for Cough, Shortness of Breath or Wheezing. 54 g 3 01/24/2023 Active Breztri Aerosphere 160-9-4.8 MCG/ACT Inhalation Aerosol (Budeson-Glycopyrrol- Formoterol)Indication s:COPD, group D, by GOLD 2017 classification ([facility]) Inhale 2 Puffs by mouth in the morning and 2 Puffs before bedtime. 32.1 g 3 02/09/2023 Active Sotalol HCl 80 MG Oral Tablet (Betapace)Indications :Paroxysmal atrial fibrillation (HCC) TAKE 1 TABLET TWICE A DAY 180 Tablet 1 04/05/2023 Active Azelastine HCl 0.1 % Nasal Solution (Astelin)Indications: Rhinitis, nonallergic Administer 1 Kinde into nostril in the morning and 1 Kinde before bedtime. 90 mL 3 04/05/2023 Active Atorvastatin Calcium 40 MG Oral Tablet (Lipitor)Indications: Paroxysmal atrial fibrillation (HCC),Coronary artery disease involving qaw[place]angin coronary artery of q[place] heart without angina pectoris TAKE 1 TABLET [...] as of this encounter (statuses as of 06/13/2023) Active Problems Problem Noted Date Diagnosed Date Chronic respiratory failure with hypoxia 024 COPD, group D, by GOLD 2017 classification 05/16 Overview: Per COPD GOLD Classification Ureteral cancer, right 03/10/2022 Bladder mass 01/05/2022 Ureteral lesion, q[place], right 01/05/2022 Chronic diastolic heart failure 07/01/2021 Pulmonary hypertension 07/01/2021 Lung nodule 07/01/2021 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 10/25/2018 Prediabetes 07/31/2018 Elevated TSH 07/31/2018 CAD in q[place] artery 03/20/2015 Venous insufficiency 03/12/2014 Overview: 03/18 --no DVT LLE Paroxysmal atrial fibrillation 02/04/2014 Overview: 01/16-[facility] hosp w/rapid response. Change to toprol. Start [...] as of this encounter (statuses as of 06/13/2023) Resolved Problems Problem Noted Date Diagnosed Date [...] as of this encounter (statuses as of 06/13/2023) Immunizations Name Administration Dates Next Due COVID-19 mRNA, LNP-s, No Pre serve, 2-Dose Series ([place]) 01/26/2022,03/08/2021,08/20/2020,07/30 Pneumococcal Polysaccharide PPV23 (Pneumovax) 05/13/2009 Seasonal Influenza, Split, I IV3, With Preserve, Inj 03/15/2011,03/09/2010,02/19/2009 TDAP (age 11 and older)(Adacel) 09/14/2011 documented as of this encounter Social History Tobacco Use Types Packs/Day Years Used Date Smoking Tobacco: Every Day Cigarettes 1 64 Smokeless Tobacco: Never Tobacco Cessation:Ready to Q uit: Not Asked; Counseling Given: Not Answered Comments:02/17/23 currently smoking 3-5 cig/day Alcohol Use Standard Drinks/Week Comments Yes 0 (1 standard drink = 0.6 oz pur e alcohol) occasionally PHQ-2 Answer Date Recorded PHQ-2 Score 0 10/25/2018 Hunger Vital Sign Answer Date Recorded Within the past 12 months, y ou worried that your food would run out before you got the money to buy more. Never true 02/04/20 Within the past 12 months, t he [...] on file documented as of this encounter Last Filed Vital Signs Vital Sign Reading Time Taken Comments Blood Pressure 138/72 06/13/2023 2:36 PM EST Pulse 55 06/13/2023 2:36 PM EST Temperature - - Respiratory Rate 20 06/13/2023 2:36 PM EST Oxygen Saturation 93% 06/13/2023 2:36 PM EST Inhaled Oxygen Concentration - - Weight - - Height - - Body Mass Index - - documented in this encounter Progress Notes * Khoa Hui MD - 06/13/2023 8:08 PM EST SUBJECTIVE: Lila Rolle is a 78 year old female here for Emergency Department Follow-Up ([facility] 05/24/23: RLE laceration ) . Here w/daughter Jo Ann Mohamud. Patient cut her right orellana on color straining bag washer. Had significant bleeding on Coumadin and so had to go the emergency room. There is a 10 cm long laceration that had a skin flap pulled back really feeling subcu tissue. They were able to use Steri- Strips and Dermabond to reapproximate the wound. She did not have changed for many days until waste examiner's changed last week. Again it was not changed for several days until she was here today. No fever no chills minimal discharge. Patient has chronic COPD, hypoxia with exertion. She only lives on the 1st floor of her to [facility]. Her bedroom and laundry upstairs. She is unable to access the 2nd floor to 2 dyspnea with exertion. As such she is not doing laundry. She puts started close in coverage bags. Her daughter states she will not let her take him out to walk them. She does find ADLs difficult. However she absolutely refuses to consider home oxygen. She states her was on home oxygen and so she is very familiar with the but she herself does not see the necessity or necessarily the rash realization to use it. She states she does not feel tired when she is resting and that is okay with her. No chest pain no new nausea vomiting diarrhea constipation. ROS: Negative except above. Past Medical History: Diagnosis Date Angioedema 07/16/2012 Atrial fibrillation ([facility]) 05/20/2008 converted with IV diltiazem CAD (coronary artery disease) COPD (chronic obstructive pulmonary disease) ([facility]) COPD, moderate ([facility]) 05/08/2013 emphysema Dyslipidemia, goal LDL below 100 09/10/2010 Elevated TSH 07/31/2018 Emphysema 05/08/2013 HTN, goal below 140/90 Kidney disease, chronic, stage III (GFR 30-59 ml/min) ([facility]) 07/29/2013 Per CKD protocol #1 Lung nodule Ovarian cyst 10/09/2008 Paroxysmal atrial fibrillation ([facility]) 02/04/2014 Prediabetes 07/31/2018 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 10/25/2018 Pulmonary arterial hypertension (HCC) Smoker unmotivated to quit Tobacco use disorder Ureteral cancer, right ([facility]) 03/10/2022 Venous insufficiency 03/12/201403/18 US --no DVT LLE Past Surgical History: Procedure Laterality Date CARDIAC CATH-CARDIOLOGY ONLY 10/09/2018 Dr Naqvi/Dr Marquez--[facility]-1 AME in mid RCA CYSTOSCOPY 06/14/2022 Dr Kenny--no tumor recurrence CYSTOSCOPY/TREAT SML BLADDER TUMOR N/A 2022 CYSTOURETHROSCOPY WITH FULGURATION SMALL BLADDER TUMOR performed by Sánchez Kenny MD at OR [facility] DEFIB/CARDIOVERSION 10/18/2018 for rapid afib [facility]. HYSTEROSCOPY W/BIOPSY AND/OR POLYPECTOMY W/WO D&C 10/16/2008 endo polyp, Roberto LIGATE/CUT OVIDUCT(S) REMOVAL OF APPENDIX age 15 Social History Socioeconomic History Marital status: Spouse name: Not on file Number of children: Not on file Years of education: Not on file Highest education level: Not on file Occupational History Not on file Tobacco Use Smoking status: Every Day Packs/day: 1.00 Years: 64.00 Additional pack years: 0.00 Total pack years: 64.00 Types: Cigarettes Smokeless tobacco: Never Tobacco comments: 02/17/23 currently smoking 3-5 cig/day Vaping Use Vaping Use: Never used Substance and Sexual Activity Alcohol use: Yes Comment: occasionally Drug use: No Sexual activity: Not Currently Partners: Male Comment: Other Topics Concern Service Not Asked Blood Transfusions Not Asked Caffeine Concern Not Asked Occupational Exposure Not Asked Hobby Hazards Not Asked Sleep Concern Not Asked Stress Concern Not Asked Weight Concern Not Asked Special Diet Not Asked Back Care Not Asked Exercise No Comment: not in winter Bike Helmet Not Asked Seat Belt Not Asked Self-Exams No Social History Narrative Likes time w/2 local grandkids and others in [place]. 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 Entered by: Matthew Palacio MD 06/21/2012 Lives alone in a townhouse. Very involved with daughter and grandkids No pets No mold Social Determinants of Health Financial Resource Strain: Not on file Food Insecurity: No Food Insecurity (02/03/2023) Hunger Vital Sign Worried About Running Out of Food in the Last Year: Never true Ran Out of Food in the Last Year: Never true Transportation Needs: Not on file Physical Activity: Not on file Stress: Not on file Social Connections: Not on file Intimate Partner Violence: Not on file Housing Stability: Not on file Family History Problem Relation Age of Onset Gastro-intestinal disorder Mother gastric hemorrhage Diabetes Father diet controlled Cancer Father colon age 79 Breast Cancer Sister breast age 64, mets lung CA Heart Disorder Brother age 76 Diabetes Brother Current Outpatient Medications Medication Sig Dispense Refill nitroglycerin (NITROSTAT) 0.[address] 1 Tab under the tongue every 5 minutes as needed for Pain, Chest. 25 Tab 3 Aspirin EC 81 MG Oral Tablet Delayed Release Take 1 Tablet by mouth in the morning. Warfarin Sodium 2.5 MG Oral Tablet (Coumadin) TAKE 1 TABLET DAILY DIRECTED BY [facility] 90Tablet 3 Spironolactone 25 MG Oral Tablet (Aldactone) Take 1 Tablet by mouth in the morning. 90 Tablet 3 Furosemide 20 MG Oral Tablet (Lasix) Take 1 Tablet by mouth in the morning. 90 Tablet 3 ProAir HFA 108 (90 Base) MCG/ACT Inhalation Aerosol Solution Inhale 2 Puffs by mouth every 4 hours as needed for Cough, Shortness of Breath or Wheezing. 54 g 3 Breztri Aerosphere 160-9-4.8 MCG/ACT Inhalation Aerosol (Mcdvjau-Hbykgkafijk-Ezwfgxgijz) Inhale 2 Puffs by mouth in the morning and 2 Puffs before bedtime. 32.1 g 3 Sotalol HCl 80 MG Oral Tablet (Betapace) TAKE 1 TABLET TWICE A DAY 180 Tablet 1 Azelastine HCl 0.1 % Nasal Solution (Astelin) Administer 1 Kinde into nostril in the morning and 1 Kinde before bedtime. 90 mL 3 Atorvastatin Calcium 40 MG Oral Tablet (Lipitor) TAKE 1 TABLET IN THE MORNING 90 Tablet 3 Current Facility-Administered Medications Medication Dose Route Frequency Provider Last Rate Last Admin Albuterol Sulfate (Proventil) (2.5 MG/3ML) 0.083% inhalation solution 2.5 mg 2.5 mg Nebulizer PRN Delroy Vasquez MD Albuterol Sulfate (Proventil) (5 MG/ML) 0.5% *conc* inhalation solution 2.5 mg 2.5 mg Nebulizer Delroy Knight MD Physical: BP 138/72 | Pulse 55 | Resp 20 | SpO2 93% General-No apparent Distress Head, Eyes, Ears, Nose, Throat--Normocephalic, atraumatic Neck-Supple Lymph-no lymphadenopathy Lungs-Clear to Auscultation, distant BS b/l Cardiovascular--Regular rate & Rhythm, +s1, s2, no murmur Abdomen-soft, nontender, nondistended + bowel sounds Extremities--no edema Skin-bandaged roomed, steri strips removed except for 2 on top part of skin flap. There is an approx 6x2.5cm granulation tissue / skin flap. No surrounding redness. Neuro-alert & oriented x3 (S81.811D) Laceration of right lower extremity, subsequent encounter (primary encounter diagnosis) Plan: home nursing.difficulty leaving house due to COPD, leaving house is taxing effort & is only for medical visits. (J44.9) COPD, severe (HCC) Plan: discussed home O2 recommendation again. Patient again declined O2. Cont Rx F/u pulm Has CT sched next mo for lung nodule f/u (I50.32) Chronic diastolic heart failure (HCC) Plan: chronic cont med mgmt (J96.11) Chronic respiratory failure with hypoxia (HCC) Plan: as above. (I48.0) Paroxysmal atrial fibrillation (HCC) Plan: cont anticaog. (This note was completed using the dictation program Fluency Direct. As such, there may be misspellings, word substitutions, or other variations that should not change the essence of the clinical content of this encounter note.If there is need for further clarification, please direct questions to the provider listed above.) Khoa uHi MD documented in this encounter Nursing Notes * Florence Smith LPN - 06/13/2023 2:36 PM EST The patient has been properly identified by confirmation of name and date of . Chief Complaint Patient presents with Emergency Department Follow-Up [facility] 05/24/23: RLE laceration documented in this encounter Plan of Treatment Upcoming Encounters Date Type Department Care Team (Late st Contact Info) Description 07/12/2023 1:00 PM EST Anticoagulation Pharmacy, [facility] [address] [place] [address] Pharmacist1, [facility] [address] [place] [address] 07/20/2023 1:30 PM EST Imaging Radiology [facility] 1st Floor, [place] 132 [facility] [place] [address] 07/25/2023 2:00 PM EST Procedure Only Urology, [facility] 132 [facility] [place] [address] Sánchez Kenny MD [address] [place] [address] [place] [address] 08/25/2023 2:00 PM EDT Office Visit Family Practice [facility] 132 [facility] [place] [address] Khoa Hui MD 132 [facility] [place] [address] Health Maintenance Due Date Last Done Comments [...] exists DISCUSS TOBACCO CESSATION (REFER TO SMARTSET #[id number]) 02/18/2024 02/17/2023, 03/10/2022, 07/01/2021 O2 ASSESSMENT COMPLETED IN PAST YEAR FOR COPD 02/18/2024 06/13/2023 Albumin/Creatinine Ratio 07/26/2025 07/26/2022 GARDASIL-HPV IMMUNIZATION SERIES [...] as of this encounter Visit Diagnoses Diagnosis Laceration of right lower extremity, subsequent encounter- Primary COPD, severe (HCC) Chronic airway obstruction, not elsewhere classified Chronic diastolic heart failure (HCC) Chronic diastolic heart failure Chronic respiratory failure with hypoxia (HCC) Chronic respiratory failure Paroxysmal atrial fibrillation (HCC) Atrial fibrillation documented in this encounter Advance [...] Advance Directives occurred with: Patient Care Teams Team Primary Care Physician Relationship Specialty Start Date End Date Khoa Hui MD [address] [place] [address] PCP - General Family Medicine 05/19/14 documented as of this encounter"
--- OUTSIDE RECORDS SUMMARY | 2023-06-27 04:14 | External Medical Summary | Summary of Care ---
Author Name Unknown Organization [facility] Address [address] [place] [address] Phone [phone] Care Team Providers Care Swatcher Name Role Phone Khoa Bill MD Primary Care Provider + Reason for Visit * Reason Comments eRx-Medication Refill Encounter Details Date Type Department Care Team (Late st Contact Info) Description 05/25/2023 Refill Family Practice [facility] [address] [place] [address] Khoa Bill MD [address] [facility] [place] [address] Paroxysmal atrial fibrillation (HCC); Coronary artery disease involving [place] coronary artery of [place] heart without angina pectoris Allergies Active Allergy Reactions Criticality Noted Date [...] Status nitroglycerin (NITROSTAT) 0.4 MG SUBLIndications:CAD in [place] artery Place 1 Tab under the tongue every 5 minutes as needed for Pain, Chest. 25 Tab 3 0 Active Aspirin EC 81 MG Oral Tablet Delayed Release Take 1 Tablet by mouth in the morning. 0 2 Active Warfarin Sodium 2.5 MG Oral Tablet (Coumadin) TAKE 1 TABLET DAILY DIRECTED BY [facility] 90 Tablet 3 3 Active Spironolactone 25 MG Oral Tablet (Aldactone)Indicati ons:HTN, goal below 130/80,Chronic diastolic heart failure (HCC),Localized edema Take 1 Tablet by mouth in the morning. 90 Tablet 3 3 Active Furosemide 20 MG Oral Tablet (Lasix) Take 1 Tablet by mouth in the morning. 90 Tablet 3 3 Active ProAir HFA 108 (90 Base) MCG/ACT Inhalation Aerosol SolutionIndications :COPD, group D, by GOLD 2017 classification ([facility]) Inhale 2 Puffs by mouth every 4 hours as needed for Cough, Shortness of Breath or Wheezing. 54 g 3 3 Active Breztri Aerosphere 160-9-4.8 MCG/ACT Inhalation Aerosol (Budeson-Glycopyrro l-Formoterol)Indica tions:COPD, group D, by GOLD 2017 classification ([facility]) Inhale 2 Puffs by mouth in the morning and 2 Puffs before bedtime. 32.1 g 3 3 Active Sotalol HCl 80 MG Oral Tablet (Betapace)Indicatio ns:Paroxysmal atrial fibrillation (HCC) TAKE 1 TABLET TWICE A DAY 180 Tablet 1 3 Active Azelastine HCl 0.1 % Nasal Solution (Astelin)Indication s:Rhinitis, nonallergic Administer 1 [place] into nostril in the morning and 1 [place] before bedtime. 90 mL 3 3 Active Atorvastatin Calcium 40 MG Oral Tablet (Lipitor)Indication s:Paroxysmal atrial fibrillation (HCC),Coronary artery disease involving [place] coronary artery of [place] heart without angina pectoris TAKE 1 TABLET IN THE MORNING 90 Tablet 3 3 Active Atorvastatin Calcium 40 MG Oral Tablet (Lipitor)Indication s:Paroxysmal atrial fibrillation (HCC),Coronary artery disease involving [place] coronary artery of [place] heart without angina pectoris Take 0.5 Tablets by mouth every evening. 0 3 05/25/20 23 Discontinued Hospital, Clinic, or Other Facility Administered Medication [...] right 03/10/2022 Bladder mass 01/05/2022 Ureteral lesion, [place], right 01/05/2022 Chronic diastolic heart failure 07/01/2021 Pulmonary hypertension 07/01/2021 Lung nodule 07/01/2021 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 10/25/2018 Prediabetes 07/31/2018 Elevated TSH 07/31/2018 CAD in [place] artery 03/20/2015 Venous insufficiency 03/12/2014 Overview: 03/18 --no DVT LLE Paroxysmal atrial fibrillation 02/04/2014 Overview: 01/16-[facility] hosp w/rapid response. Change to toprol. [...] encounter Miscellaneous Notes * Telephone Encounter - [place] [facility] - 05/25/2023 3:02 PM EST Signed Prescriptions: Disp Refills Atorvastatin Calcium 40 MG Oral Tablet (Li*90 Tab*3 Sig: TAKE 1 TABLET IN THE MORNINGAuthorizing Provider: KHOA BILL User: CJ BAY documented in this encounter Plan of Treatment Upcoming Encounters Date Type Department Care Team (Late st Contact Info) Description 05/31/2023 1:30 PM EST Anticoagulation Pharmacy, [facility] [address] [place] [address] Pharmacist1, [facility] [address] [facility] [place] [address] 07/20/2023 1:30 PM EST [facility] [place] [address] 07/25/2023 2:00 PM EST Procedure Only Urology, [facility] 132 [facility] [place] [address] Sánchez Kenny MD [address] [place] [address] [place] [id number] 08/25/2023 2:00 PM EDT Office Visit Family Practice [facility] [address] [facility] [place] [address] Khoa Bill MD [address] [place] [address] Health Maintenance Due Date Last Done Comments [...] 2023 03/15/2011, 03/09/2010, 02/19/2009 HbA1c 07/25/2023 07/25/2022, 0909/2019, 09/27/2018 GFR 09/21/2023 09/20/2022, 04/0 12/2022, 08/22/2022, Additional history exists DISCUSS TOBACCO CESSATION (REFER TO SMARTSET #[id number]) 02/18/2024 02/17/2023, 03/10/2022, 07/01/2021 O2 ASSESSMENT COMPLETED [...] as of this encounter Visit Diagnoses Diagnosis Paroxysmal atrial fibrillation (HCC) Atrial fibrillation Coronary artery disease involving [place] coronary artery of [place] heart without angina pectoris documented in this encounter Advance Directives Latest [...] Advance Directives occurred with: Patient Care Teams Swatcher Relationship Specialty Start Date End Date Khoa Bill MD 132 [facility] [place] [address] PCP - General Family Medicine 05/19/14 documented as of this encounter
--- OUTSIDE RECORDS SUMMARY | 2023-06-27 04:14 | External Medical Summary ---
Author Name Unknown Address Unknown Organization K09:[facility] [place] [address] Laboratory Report Ordering Provider Test Date Status BONNY SEPULVEDAPIERRE 05/31/2023 13:25:06 Final Therapeutic ranges for non-o perative patients:
Prophylaxsis/treatment of DVT: (Range:2.0-3.0)
Treatment of pulmonary embolism:(Range:2.0-3.0)
Prevention of systemic embolism from:
-tissue heart valves
-acute myocardial infarction
-valvular heart disease
-atrial fibrillation
(Range: 2.0-3.0)
Mechanical prosthetic valves: (Range: 2.5-3.5) Observation Date Value Abnormality Reference (Units ) Status INR in Capillary blood by Coagulation assay 05/31/2023 13:25:06 2.7 (INR) Final Performing Location [facility] [place] [id number]
--- OUTSIDE RECORDS SUMMARY | 2023-06-27 04:14 | External Medical Summary | Summary of Care ---
Author Name Unknown Organization [facility] Address [address] [place] [address] Phone [phone] Care Team Providers Care Zigzag Elastic Attacher Name Role Phone Khoa Hui MD Primary Care Provider + Reason for Visit * Reason Onset Date Comments Advice 06/08/2023 Encounter Details Date Type Department Care Team (Late st Contact Info) Description 06/08/2023 Telephone Family Practice [facility] [address] [facility] [place] [address] Khoa Hui MD [address] [place] [employer] [facility] [place] [address] Advice Allergies Active [...] as of this encounter (statuses as of 06/09/2023) Medications Medication Sig Dispensed Refills Start Date End Date Status nitroglycerin (NITROSTAT) 0.4 MG SUBLIndications:CAD in [place] artery Place 1 Tab under the tongue every 5 minutes as needed for Pain, Chest. 25 Tab 3 02/12/2020 Active Aspirin EC 81 MG Oral Tablet Delayed Release Take 1 Tablet by mouth in the morning. 0 01/21/2022 Active Warfarin Sodium 2.5 MG Oral Tablet (Coumadin) TAKE 1 TABLET DAILY DIRECTED BY [facility] 90 Tablet 3 10/17/2022 Active [...] OPD, group D, by GOLD 2017 classification ([facility]) Inhale 2 Puffs by mouth every 4 hours as needed for Cough, Shortness of Breath or Wheezing. 54 g 3 01/24/2023 Active Breztri Aerosphere 160-9-4.8 MCG/ACT Inhalation Aerosol (Budeson-Glycopyrrol- Formoterol)Indication s:COPD, group D, by GOLD 2017 classification ([facility]) Inhale 2 Puffs by mouth in the morning and 2 Puffs before bedtime. 32.1 g 3 02/09/2023 Active Sotalol HCl 80 MG Oral Tablet (Betapace)Indications :Paroxysmal atrial fibrillation (HCC) TAKE 1 TABLET TWICE A DAY 180 Tablet 1 04/05/2023 Active Azelastine HCl 0.1 % Nasal Solution (Astelin)Indications: Rhinitis, nonallergic Administer 1 [place] into nostril in the morning and 1 [place] before bedtime. 90 mL 3 04/05/2023 Active Atorvastatin Calcium 40 MG Oral Tablet (Lipitor)Indications: Paroxysmal atrial fibrillation (HCC),Coronary artery disease involving [place] coronary artery of [place] heart without angina pectoris TAKE 1 TABLET [...] as of this encounter (statuses as of 06/09/2023) Active Problems Problem Noted Date Diagnosed Date COPD, group D, by GOLD 2017 classification 05/16 Overview: Per COPD GOLD Classification Ureteral cancer, right 03/10/2022 Bladder mass 01/05/2022 Ureteral lesion, [place], right 01/05/2022 Chronic diastolic heart failure 07/01/2021 Pulmonary hypertension 07/01/2021 Lung nodule 07/01/2021 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 10/25/2018 Prediabetes 07/31/2018 Elevated TSH 07/31/2018 CAD in [place] artery 03/20/2015 Venous insufficiency 03/12/2014 Overview: 03/18 --no DVT LLE Paroxysmal atrial fibrillation 02/04/2014 Overview: 01/16-[facility] hosp w/rapid response. Change to [...] as of this encounter (statuses as of 06/09/2023) Resolved Problems Problem Noted Date Diagnosed Date [...] as of this encounter (statuses as of 06/09/2023) Immunizations Name Administration Dates Next Due COVID-19 mRNA, LNP-s, No Pre serve, 2-Dose Series (Mobui) 01/26/2022,03/08/2021,08/20/2020,07/30 Pneumococcal Polysaccharide PPV23 (Pneumovax) 05/13/2009 Seasonal [...] Telephone Encounter - Aiyana Castro RN - 06/09/2023 8:30 AM EST Patient had nurse visit yesterday, see encounter in chart. * Telephone Encounter - Aiyana Castro RN [...] Would like nurse call back. Jo Ann [phone] documented in this encounter Plan of Treatment Upcoming Encounters Date Type Department Care Team (Late st Contact Info) Description 06/13/2023 2:40 PM EST Office Visit [facility] [address] [place] [address] Khoa Hui MD [address] [place] [id number] 07/12/2023 1:00 PM EST Anticoagulation Pharmacy, [facility] [address] [place] [address] Pharmacist1, [facility] [address] [place] [address] 07/20/2023 1:30 PM EST Imaging Radiology [facility] 1st Floor, [place] 132 [facility] [place] [address] 07/25/2023 2:00 PM EST Procedure Only Urology, [facility] 132 [facility] [place] [address] Sánchez Kenny MD [address] [facility] [address] [place] [address] 08/25/2023 2:00 PM EDT Office Visit [facility] [address] [place] [address] Khoa Hui MD [address] [place] [address] Health Maintenance Due Date Last Done Comments Alpha-1 Antitrypsin 1961 Pneumococcal Vaccine: 65+ Years (2 - PCV) 05/13/2010 05/13/2009 DXA Scan 09/18/2018 09/19/2011, 09/19/2011 Depression Screening 10/26/2019 10/25/2018 *ADVANCE DIRECTIVE NOT ON FILE 07/20/2021 DTaP,Tdap,and Td Vaccines (2 - Td or Tdap) 09/13/2021 09/14/2011 COVID-19 Vaccine (5 - season) 2023 01/26/2022, 03/08/2021, 08/20/2020, Additional history exists Influenza Vaccine (FLU shot) (#1) 2023 03/15/2011, 03/09/2010, 02/19/2009 HbA1c 07/25/2023 07/25/2022, 0909/2019, 09/27/2018 GFR 09/21/2023 09/20/2022, 040 12/2022, 08/22/2022, Additional history exists DISCUSS TOBACCO [...] Advance Directives occurred with: Patient Care Teams Zigzag Elastic Attacher Relationship Specialty Start Date End Date Khoa Hui MD [address] [place] [address] PCP - General Family Medicine 05/19/14 documented as of this encounter
--- OUTSIDE RECORDS SUMMARY | 2023-06-27 04:14 | External Medical Summary | Summary of Care ---
Author Name Unknown Organization [facility] Address [address] 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; 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 Allergies Active Allergy Reactions Criticality Noted Date Comments Marlo Inhibitors Cough 02/23/2009 Valsartan Edema face/lips/tongue High 05/17/2012 Dog Dander Other (Please comment) High 06/11/2015 Congestion, SOB Influenza Vac Split Quad Other (Please comment) 03/15/2012 Sinus pressure, drainage after flu shot on 2 occasions Levofloxacin 10/07/2013 Itching; hives on trunk and lower extremities Nickel Rash 05/20/2008 documented as of this encounter (statuses as of 05/31/2023) Medications Medication Sig Dispensed Refills Start Date End Date Status nitroglycerin (NITROSTAT) 0.4 MG SUBLIndications:CAD in [place] artery Place 1 Tab under the tongue every 5 minutes as needed for Pain, Chest. 25 Tab 3 02/12/2020 Active Aspirin EC 81 MG Oral Tablet Delayed Release Take 1 Tablet by mouth in the morning. 0 01/21/2022 Active Warfarin Sodium 2.5 MG Oral Tablet (Coumadin) TAKE 1 TABLET DAILY DIRECTED BY [facility] 90 Tablet 3 10/17/2022 Active [...] Nasal Solution (Astelin)Indications: Rhinitis, nonallergic Administer 1 [place] into nostril in the morning and 1 [place] before bedtime. 90 mL 3 04/05/2023 Active Atorvastatin Calcium 40 MG Oral Tablet (Lipitor)Indications: Paroxysmal atrial fibrillation (HCC),Coronary artery disease involving [place] coronary artery of [place] heart without angina pectoris TAKE 1 TABLET [...] as of this encounter (statuses as of 05/31/2023) Active Problems Problem Noted Date Diagnosed Date COPD, group D, by GOLD 2017 classification 05/16 Overview: Per COPD GOLD Classification Ureteral cancer, right 03/10/2022 Bladder mass 01/05/2022 Ureteral lesion, [place], right 01/05/2022 Chronic diastolic heart failure 07/01/2021 Pulmonary hypertension 07/01/2021 Lung nodule 07/01/2021 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 10/25/2018 Prediabetes 07/31/2018 Elevated TSH 07/31/2018 CAD in [place] artery 03/20/2015 Venous insufficiency 03/12/2014 Overview: 03/18 --no DVT LLE Paroxysmal atrial fibrillation 02/04/2014 Overview: 01/16-[facility] hosp w/rapid response. Change to [...] as of this encounter (statuses as of 05/31/2023) Resolved Problems Problem Noted Date Diagnosed Date [...] as of this encounter (statuses as of 05/31/2023) Immunizations Name Administration Dates Next Due COVID-19 mRNA, LNP-s, No Pre serve, 2-Dose Series ([place]) 01/26/2022,03/08/2021,08/20/2020,07/30 Pneumococcal Polysaccharide PPV23 (Pneumovax) 05/13/2009 Seasonal [...] on file documented as of this encounter Progress Notes * Howard Sheth RPh - 05/31/2023 1:21 PM EST Medication Therapy Disease Management - Anticoagulation Lila Rolle 1945 Description Given patients aversion to self injections and lower predicted risk Per Cardiology (see 01/13/22 note) okay with NO lovenox bridge. Patient Findings Negatives: Signs/symptoms of thrombosis, Signs/symptoms of bleeding, Change in health, Change in alcohol use, Change in activity, Upcoming invasive procedure, Missed doses, Extra doses, Change in medications, Change in diet/appetite, Bruising INR Result As of 05/31/2023 INR goal: 2.0-3.0 INR used for dosin.7 (05/31/2023) Warfarin Plan As of 05/31/2023 Full warfarin instructions: 1.25 mg every Sat; 2.5 mg all other days No change documented: Howard Sheth RPh Next INR check: 07/12/2023 Repeat PT/INR in 6 week(s) Weekly dose: not changed Howard Anderson RPh, CACP, CDE Clinical Pharmacist Medication Therapy Management [facility] 05/31/2023 1:31 PM documented in this encounter Plan of Treatment Upcoming Encounters Date Type Department Care Team (Late st Contact Info) Description 06/07/2023 2:40 PM EST Office Visit [facility] [address] [place] [address] Khoa Hui MD [address] [place] [address] 07/12/2023 1:00 PM EST Anticoagulation Pharmacy, [facility] [address] [place] [address] Pharmacist1, [facility] [address] [place] [address] 07/20/2023 1:30 PM EST Imaging Radiology [facility] 1st Floor, [place] [address] [place] [address] 07/25/2023 2:00 PM EST Procedure Only Urology, [facility] [address] [place] [address] Sánchez Kenny MD [address] [address] [place] [address] 08/25/2023 2:00 PM EDT Office Visit [facility] [address] [place] [address] Khoa Hui MD [address] [place] [address] Health Maintenance Due Date Last Done Comments [...] Procedure Name Priority Date/Time Associated Diagnosis Comments INR FINGERSTICK, POINT OF CARE STAT 05/31/2023 1:25 PM EST Paroxysmal atrial fibrillation (HCC) 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 documented in this encounter Results * INR FINGERSTICK, POINT OF CARE (05/31/2023 1:25 PM EST) Fingerstick INR 2.7 INR 1:26 PM EST [facility] [place] 56-02 Blood 05/31/2023 1:25 PM EST 05/31/2023 1:26 PM EST Narrative [facility] 56-02 - 05/31/2023 1:26 PM EST Therapeutic ranges for non-operative patients: Prophylaxsis/treatment of DVT: (Range:2.0-3.0) Treatment of pulmonary embolism:(Range:2.0-3.0) Prevention of systemic embolism from: -tissue heart valves -acute myocardial infarction -valvular heart disease -atrial fibrillation (Range: 2.0-3.0) Mechanical prosthetic valves: (Range: 2.5-3.5) Reanna Thomas [facility] POINT OF CAR E TEST DOCKED DEVICE UNSOLICITED RESULTS [facility] [address] [facility] [address] documented in this encounter Visit Diagnoses Diagnosis Paroxysmal atrial fibrillation (HCC)- Primary Atrial fibrillation Anticoagulation management encounter Encounter for therapeutic drug monitoring retirement current use of anticoagulant therapy documented in this encounter Advance Directives Latest [...] Advance Directives occurred with: Patient Care Teams Project Analyst Relationship Specialty Start Date End Date Khoa Hui MD [address] [place] [address] PCP - General Family Medicine 05/19/14 documented as of this encounter
[2023-06-27 04:23] LABS: BUN Creatinine Ratio 21.9 (10-20); Calcium 8.9 mg/dl (8.6-10.3); Creatinine Clr Calc Pharmacy 59.2 ml/min; Est GFR (African American) 90.2 ml/min; Est GFR (Non-African American) 77.8 ml/min; Troponin I High Sensitivity 48.2 pg/ml (0-14)
[2023-06-27 04:24] LABS: INR 2.3 (0.9-1.1); Prothrombin Time 23.5 Seconds (9.0-12.0)
[2023-06-27] MEDS ORDERED: FLUTICASONE FUROATE 200MCG 14 PUFFS/INHALER INH SCH (09:00)
[2023-06-27] MEDS ORDERED: NON-FORMULARY MEDICATION (Budesonide-Glycopyr-Formoterol [Breztri Aerosphere] 160-9-4.8 mc INH SCH (09:00)
[2023-06-27] MEDS ORDERED: ASPIRIN 81 MG ECTAB PO SCH (09:00)
[2023-06-27] MEDS ORDERED: AZELASTINE HCL 0.1% NASAL 200 SPRAYS/27,400 MCG BTL SCH (09:00)
[2023-06-27] MEDS ORDERED: UMECLIDINIUM/VILANTEROL 62.5/25MCG 7 PUFFS/INHALER INH SCH (09:00)
[2023-06-27] MEDS ORDERED: FUROSEMIDE 20 MG TAB PO SCH (09:00)
[2023-06-27] MEDS ORDERED: SOTALOL HCL 80 MG TAB PO SCH (09:00)
[2023-06-27] MEDS ORDERED: SPIRONOLACTONE 25 MG TAB PO SCH (09:00)
--- NOTE | 2023-06-27 11:05 | Cardiology Consultation ---
Date of Consultation June 27, 2023 Assessment & Plan (1) NSTEMI (non-ST elevated myocardial infarction): Patient is chest pain-free. Her high sensitive troponin had initially been 15.3 and trended up to 48.2. EKG without repolarization abnormalities, an echocardiogram with normal wall motion. Presentation however still concerning for non-ST segment elevation myocardial infarction especially given her history of previous coronary heart disease and right coronary stent. She does not recollect her symptoms that prompted her or stent in 2019 with regards to knowing whether or not her current symptoms are reminiscent of those symptoms. Patient feels well. I discussed options with her such as proceeding with cardiac catheterization. She declines cardiac catheterization and favors nonoperative management. Her INR is 2.3. Recommend ongoing treatment with Coumadin. Add isosorbide mononitrate to her medication regimen. She is already on a beta- ramana sotalol. Continue atorvastatin 40 mg daily and aspirin 81 mg daily. (2) Paroxysmal atrial fibrillation: Patient with history of paroxysmal atrial fibrillation. She is in sinus rhythm and sotalol 80 mg twice daily will be continued. Continue warfarin goal INR 2-3. History of Present Illness Attending Physician: Bryce Bray MD History of Present Illness Lila Rolle is an 78 year old female seen in cardiology consultation per the request of Dr Cage for the evaluation of chest pain. Patient states that home health was dressing her lower leg wound yesterday and son thereafter had abrupt onset midline chest discomfort. The discomfort has since resolved. Pt states all she ate yesterday was a Pretzel roll. At the time my assessment the patient is comfortable without complaints. Cardiac History: Patient has a history of coronary heart disease and underwent drug-eluting stent to the mid right coronary artery performed at [facility] in October 2018, by Dr Marquez Social History: She states that she had quit smoking, but then had increased stress and she has gone back to smoking" some days ". Allergies Allergy/AdvReac Type Severity Reaction Status Date / Time dog dander Allergy Severe congestion, Verified 06/26/23 17:10 SOB valsartan Allergy Severe Edema Verified 06/26/23 17:10 face/lips/tongue. NAI Inhibitors Allergy Unknown Cough. Verified 06/26/23 17:10 influenza virus vaccine ts Allergy Unknown Unknown Verified 06/26/23 23:23 [id number] (36 mos,up) [From Fluarix] nickel Allergy Unknown Rash. Verified 06/26/23 17:10 levofloxacin [From Levaquin] Allergy Hives Unverified 06/26/23 17:10 Home Medications Medication Instructions Recorded Confirmed Type furosemide 20 mg tablet 20 mg PO QAM 10/08/18 06/26/23 History nitroglycerin 0.4 mg sublingual 0.4 mg sublingual DIRECTED PRN 04/19/19 06/26/23 History tablet Chest Pain sotalol 80 mg tablet 80 mg PO BID 04/19/19 06/26/23 History albuterol sulfate 90 mcg/actuation 2 puff inhalation Q4 PRN 09/09/21 06/26/23 History aerosol inhaler (ProAir HFA) cough,shortness of breath,wheeze atorvastatin 40 mg tablet 40 mg PO HS 09/09/21 06/26/23 History aspirin 81 mg tablet,delayed 81 mg PO QAM 01/17/23 06/26/23 History release azelastine 137 mcg (0.1 %) nasal 1 spray intranasal [facility] 01/17/23 06/26/23 History spray aerosol budesonide 160 mcg-glycopyr 9 2 inh inhalation [facility] 01/17/23 06/26/23 History mcg-formot 4.8 mcg/actuation HFA inhaler (SNAPP'ztri [employer]) spironolactone 25 mg tablet 25 mg PO QAM 01/17/23 06/26/23 History warfarin 2.5 mg tablet 2.5 mg PO DAILY 01/17/23 06/26/23 History albuterol sulfate 2.5 mg/3 mL 2.5 mg inhalation DIRECTED PRN 06/26/23 06/26/23 History (0.083 %) solution for nebulization sob Patient History Medical History (Updated 06/27/23 @ 11:10 by Bertram Diaz DO) Venous insufficiency COPD (chronic obstructive pulmonary disease) Prediabetes Hyperlipidemia Tobacco abuse CAD (coronary artery disease), telida coronary artery Hypertension Emphysema of lung Surgical History H/O: hysterectomy S/P appendectomy S/P right coronary artery (RCA) stent placement Family History Other Colon cancer Social History Smoking Status: Current every day smoker Tobacco Type: Cigarettes Cigarettes Per Day: 3-5; Second Hand Exposure: No; Do You Dip or Chew Tobacco: No; Hx Alcohol Use: No Hx Substance Use: No Preferred Language: German Communication Ability: Effective Barrel Rifler Hook Required: No Beliefs That Will Affect Care: None Current Living Situation: Alone Other Information That Helps Us Care for You: No Feels Safe at Home: Yes Safety Concerns: Feels Safe At This Time Assistive Devices: Glasses Review of Systems Review of Systems: All systems reviewed & are unremarkable except as noted in HPI & below Physical Exam Constitutional: WD/WN, vitals as above Respiratory: normal respiratory effort, lungs clear to auscultation Cardiovascular: RRR, no murmur, no edema Gastrointestinal (Abdomen): normal bowel sounds, soft, nontender, no hepatosplenomegaly Neurologic: PERRL, EOMI, accommodation nl, no face palsy, no dysarthria Results & Data Vital Signs (Past 12 Hours) Vital Signs Temp Pulse Pulse Resp BP Pulse Ox O2 Del Method 06/27/23 10:51 54 L 16 134/62 94 Room Air 06/27/23 07:51 54 L 18 135/59 L 96 Room Air 06/27/23 07:16 53 L 06/27/23 03:05 36.8 C 52 L 16 105/54 L 96 Room Air 06/26/23 23:41 Room Air 06/26/23 23:41 36.4 C L 59 L 20 141/81 H 94 Room Air 06/26/23 23:18 56 L Laboratory Results Cardiac Enzymes 06/26/23 06/27/23 Range/Units 16:31 03:41 AST 19 (13-39) U/L Troponin I High Sens 15.3 H 48.2 H D (0-14) pg/ml B-Natriuretic Peptide 357 H (0-100) pg/ml Coagulation 06/26/23 06/27/23 Range/Units 16:31 03:41 PT 22.8 H 23.5 H (9.0-12.0) Seconds B-Natriuretic Peptide 357 H (0-100) pg/ml CBC 06/26/23 06/27/23 Range/Units 16:31 03:41 WBC 11.16 H 9.17 (4.8-10.8) K/ul RBC 5.25 4.79 (4.20-5.40) M/uL Hgb 16.1 H 14.7 (12.0-16.0) g/dl Hct 50.2 H 44.8 (37.0-47.0) % Plt Count 146 134 (130-400) K/uL Neut # (Auto) 8.36 H 6.32 (1.40-6.50) K/uL Lymph # (Auto) 1.82 1.97 (1.20-3.40) K/uL [place] # (Auto) 0.80 H 0.73 H (0.11-0.59) K/uL Eos # (Auto) 0.11 0.09 (0.00-0.50) K/uL Baso # (Auto) 0.03 0.03 (0.00-0.20) K/uL Comprehensive Metabolic Panel 06/26/23 06/27/23 Range/Units 16:31 03:41 Sodium 139 137 (136-145) mmol/L Potassium 3.3 L 4.0 D (3.5-5.1) mmol/L Chloride 99 100 (98-107) mmol/L Carbon Dioxide 34 H 34 H (21-32) mmol/L BUN 19 16 (6-23) mg/dl Creatinine 0.77 0.73 (0.6-1.2) mg/dl Glucose 115 H 113 H (70-99(Fasting)) mg/dl Calcium 9.0 8.9 (8.6-10.3) mg/dl AST 19 (13-39) U/L ALT 15 (7-52) U/L Alkaline Phosphatase 65 (34-104) U/L Total Protein 7.0 (6.0-8.3) gm/dl Albumin 3.8 (3.4-5.0) gm/dl Intake and Output 06/26/23 06/27/23 06/27/23 22:59 06:59 14:59 Intake Total 100 / 300 200 / 300 Balance 100 / 300 200 / 300 Intake: IV 100 / 300 200 / 300 Magnesium Sulfate / D5w 1 gm In 100 / 100 100 ml @ 100 mls/hr IV NOW STA Rx#:[id number] Potassium Chloride / Wtr 10 meq 100 / 200 100 / 200 In 100 ml @ 100 mls/hr IV Q1H DONOVAN Rx#:[id number] Other: Weight 65.3 kg 61 kg Weight Measurement Method Built in Bedscale Patient Lift Scale Diagnostic Findings EKG performed 06/26/2023 at 1613 and interpret independently: Sinus rhythm at 63 bpm with occasional premature atrial contractions, incomplete right bundle branch block, QT interval stable at 427 ms. No significant repolarization abnormalities. Repeat tracing performed this morning 06/27/2023 at 8:54 AM and interpret independently: Sinus bradycardia at 58 bpm with premature atrial contractions, incomplete right bundle branch block, no significant repolarization abnormalities Echocardiogram performed this morning and interpreted independently: Moderate concentric left ventricle hypertrophy, normal left ventricular wall motion without regional wall motion abnormalities, LVEF in the range of 65 to 70%, mild mitral regurgitation, mild tricuspid vegetation, the pulmonary artery systolic pressure is estimated to be 51 mmHg which is moderately elevated. Grade 1 diastolic dysfunction noted.
[2023-06-27] MEDS ORDERED: ISOSORBIDE MONO EXTENDED REL 30 MG TABCR PO SCH (11:15)
--- NOTE | 2023-06-27 12:21 | Electrocardiogram Report ---
Test Reason : Blood Pressure : / mmHG Vent. Rate : 058 BPM Atrial Rate : 058 BPM P-R Int : 154 ms QRS Dur : 100 ms QT Int : 470 ms P-R-T Axes : 082 080 094 degrees QTc Int : 461 ms Sinus bradycardia with Premature atrial complexes Incomplete right bundle branch block Nonspecific ST abnormality Abnormal ECG When compared with ECG of 26-JUN-2023 16:13, Non-specific change in ST segment in Anterior leads Confirmed by Phong Choi ([id number]) on 06/27/2023 12:21:00 PM Referred By: REFERRED SELF Confirmed By:Ravindra Choi
--- NOTE | 2023-06-27 15:34 | Discharge Summary ---
Date of Service June 27, 2023 Admission HPI Per Admitting Provider 78-year-old female with past medical history significant for hyperlipidemia, prediabetes, COPD, history of chronic respiratory failure, paroxysmal atrial fibrillation, chronic diastolic CHF, pulmonary hypertension, hypertension, history of CAD s/p drug-eluting stent in right coronary artery, right uterine cancer following with [facility], history of bladder cancer right uteroscopy, TURBT February 2022 seems low-grade currently following with urology, lung nodule left upper lobe following with pulmonary plan for repeat CAT scan, ongoing tobacco abuse, chronic cough, chronic shortness of breath, supposed to use oxy gen while ambulation but patient seems to be noncompliant comes with chest pain. Around 3 PM patient had severe chest pain middle of the chest radiating to her teeth. It lasted about 1 hour when she called EMS. EMS gave her aspirin which subsided the pain. No nausea. No sweating. No dizziness. No headache. Vision is okay. No sore throat. No fevers. Appetite is okay. No abdominal pain. Normal bowel and bladder movements. States ambulating okay but gets short of breath on ambulation. Currently resting comfortably and hemodynamically stable Past medical history. As mentioned above Past surgical history. Cardiac cath. Cystoscopy. Cardioversion for rapid A- fib. Hysteroscopy with biopsy. Polypectomy. Ligation of oviducts. Appendectomy. Social history. . Smoked 1 pack a day for 64 years. Currently smoking 3 to 5 cigarettes/day. Alcohol occasionally. No drug use. Family history. Sister had breast cancer. Father had colon cancer. Diabetes. Mother had gastric hemorrhage. Brother had diabetes. Heart disorder. Admission Exam Per Admitting Provider General- Not in distress Head- atraumatic Eyes- PERRL. ENT- oropharynx clear Neck- supple, no JVD. Lungs- clear to auscultation no wheezing or crackles. Heart- regular rhythm; no murmur, no gallop. Abdomen- normal bowel sounds, soft, nontender, no distension. Extremities- no pretibial edema, no erythema seen. Neuro- alert, oriented x 3; PERRL, no facial palsy; no dysarthria; moves extremities. Skin- warm & dry Principal Diagnosis NSTEMI Discharge Exam Constitutional: WD/WN, vitals as above, NAD, sitting up in bed, pleasant, conversing easily Respiratory: normal respiratory effort, lungs clear to auscultation, no wheeze, rales, rhonchi. Normal insp/exp effort, no accessory muscle use Cardiovascular: RRR, no murmur, no edema Vessels: no JVD or carotid bruit Chest: normal inspection of chest Abdomen: normal bowel sounds, soft, nontender, no hepatosplenomegaly Musculoskeletal: no cyanosis or clubbing, extremities motor strength 5/5 Skin: no rashes, warm and dry normal turgor Neurologic: PERRL, EOMI, accommodation nl, no face palsy, no dysarthria CN's II- XI intact bilaterally and moves all extremities Psychiatric: A+Ox3, euthymic affect Discharge Data Allergies Allergy/AdvReac Type Severity Reaction Status Date / Time dog dander Allergy Severe congestion, Verified 06/26/23 17:10 SOB valsartan Allergy Severe Edema Verified 06/26/23 17:10 face/lips/tongue. NAI Inhibitors Allergy Unknown Cough. Verified 06/26/23 17:10 influenza virus vaccine ts Allergy Unknown Unknown Verified 06/26/23 23:23 [id number] (36 mos,up) [From Fluarix] nickel Allergy Unknown Rash. Verified 06/26/23 17:10 levofloxacin [From Levaquin] Allergy Hives Unverified 06/26/23 17:10 Consultations 06/27/23 08:00 Consult Cardiology Routine Hospital Course (1) Chest pain: 78-year-old female with past medical history significant for hyperlipidemia, prediabetes, COPD, history of chronic respiratory failure, paroxysmal atrial fibrillation, chronic diastolic CHF, pulmonary hypertension, hypertension, history of CAD s/p drug-eluting stent in right coronary artery, right uterine cancer following with [facility], history of bladder cancer right uteroscopy, TURBT February 2022 seems low-grade currently following with urology, lung nodule left upper lobe following with pulmonary plan for repeat CAT scan, ongoing tobacco abuse, chronic cough, chronic shortness of breath presents with chest pain. EKG on admission showed sinus bradycardia with PAC with nonspecific ST segments change. High sensitive troponin was 15.3; up trended to 48 and down trended to 41. Echocardiogram was done; EF of 65 to 70% with grade 1 diastolic dysfunction. Cardiology was consulted for comanagement. Discussion was done by cardiology with the patient regarding cardiac catheterization. However, patient did not want to go undergo any procedures. Patient wanted to get discharged as soon as possible. She was prescribed Imdur as recommended by cardiology. Discharge instructions were given to her daughter over the phone. Answer questions/queries. Please note the above document was generated using voice recognition software. It may contain grammatical, syntax or spelling errors. Any formal questions or concerns about the content, text or information contained within the body of this dictation should be directly addressed to the provider for clarification Total Time Total Time Spent Total Time Spent (In Minutes): 35 Total Time Includes: Examination of the Patient, Discharge Planning, Medication Reconciliation, Communication With Other Providers and Other Discharge Plan Discharge Items Patient Disposition: Home - Self-Care Reason For Visit: CHEST PAIN Discharge Diagnosis: NSTEMI Activity: Resume your previous activity Non-emergency contact: Primary Care Provider Call non-emergency contact if: you have any medication questions and your symptoms worsen Follow-up/Referrals: Khoa Hui MD [Primary Care Provider] - (Date & Time 07/05/2023 2:40 PM Provider Khoa Hui MD Department Family Practice [facility] ) Diet: Regular Addtl Attending Provider Instructions: You were admitted to the hospital due to chest pain. Cardiology saw you during the hospitalization. Following changes has been made to your medication regimen; 1) start taking Imdur 30 mg once a day. An appointment will be set up with your primary care doctor. Please follow-up to the appointment Pending Studies at Discharge: No Stand-Alone Forms: My Rent Here, Smoking Cessation Medications and DC Order Prescriptions: New isosorbide mononitrate 30 mg Tablet Extended Release 24 Hr 30 mg PO QAM Qty: 30 0RF Continued furosemide 20 mg Tablet 20 mg PO QAM sotalol 80 mg Tablet 80 mg PO BID nitroglycerin 0.4 mg Tablet, Sublingual 0.4 mg sublingual DIRECTED PRN (Reason: Chest Pain) albuterol sulfate [ProAir HFA] 90 mcg/actuation HFA aerosol inhaler 2 puff INHALATION Q4 PRN (Reason: cough,shortness of breath,wheeze) atorvastatin 40 mg tablet 40 mg PO HS spironolactone 25 mg tablet 25 mg PO QAM Breztri Aerosphere 160-9-4.8 mcg/actuation HFA aerosol inhaler 2 inh INHALATION AMHS aspirin 81 mg Tablet,Delayed Release (Dr/Ec) 81 mg PO QAM azelastine 137 mcg (0.1 %) aerosol,spray 1 spray INTRANASAL [facility]HS warfarin 2.5 mg tablet 2.5 mg PO DAILY albuterol sulfate 2.5 mg /3 mL (0.083 %) Solution For Nebulization 2.5 mg INHALATION DIRECTED PRN (Reason: sob) Discharge Orders: Discharge Order (Routine); Ordered 06/27/23 Ordered By: Bryce Bray Admission Data Admit Date/Time: 06/26/23 22:54 Attending Provider: Bryce Bray Admit Provider: Sam Cage Primary Care Provider: Khoa Hui Other Providers: Bertram Diaz Other Interventions: Discharge Summary Assessment (RN) Last Done: 06/27/23 13:27
[2023-06-27] MEDS ORDERED: WARFARIN SOD 2.5 MG TAB PO SCH (16:00)
[2023-06-27] MEDS ORDERED: ATORVASTATIN 40 MG TAB PO SCH (21:00)
== END 2023-06-27 13:27 | disposition home or self-care (01) ==
LOC: ED 16:08 → EDINP 16:08

== ENCOUNTER 2024-02-06 14:30 | Inpatient (IN) ==
--- NOTE | 2024-02-06 15:01 | Emergency Department Note ---
Impression & Plan Hypoxia, COPD exacerbation, SOB (shortness of breath), Pedal edema, Anticoagulated on Coumadin, Fluid overload, Cellulitis ED Provider Note NAME: CAMILA CASTILLO AGE: 78 SEX: F : 1945 ARRIVES VIA: Ambulance INFORMANT: [Patient][family] ED PROVIDER(S): [Geo Roque MD] CHIEF COMPLAINT: Short of breath HISTORY OF PRESENT ILLNESS: The patient is an 78-year-old female who presents to the ER with increasing shortness of breath and increasing pedal edema. O2 saturation outpatient was 88%, she does not typically wear oxygen. The patient did have some precordial chest pain but this was from a contusion to the chest wall. She states that the sternal pain resolved with time and Tylenol. She had fallen and injured the chest wall, this was a few weeks ago. The patient states that she has noticed increasing edema of both legs. She has had redness of the left leg for about a week. No fever or chills. The patient does have COPD. She states that she does not do well with nebulizers, it seems to provoke her A-fib. She is on Coumadin for her A-fib. The patient is taking diuretics although, she is not convinced they are working well. PMHx/PSHx/Social Hx: See Below PHYSICAL EXAM: GENERAL: Patient is in no acute distress. HEENT: No acute trauma, normocephalic atraumatic, mucous membranes moist, no nasal congestion. NECK: No stridor, no adenopathy, no meningismus, trachea is midline. LUNGS: Diminished breath sounds bilaterally. No wheezing. No respiratory distress. Wet cough noted. HEART: No murmurs gallops or rubs, heart tones are distant. Regular rhythm. ABDOMEN: Soft, nontender, no peritonitis. EXTREMITIES: No cyanosis, full range of motion of all the joints without pain or difficulty. Moderate bilateral pedal edema. There is erythema and warmth to the anterior aspect of the left tib-fib. NEUROLOGIC: Oriented x 3, no acute motor or sensory deficits, no focal weakness. SKIN: No jaundice, no diaphoresis. DIFFERENTIAL DIAGNOSIS: COPD flare, pneumonia, bronchitis, viral illness, CHF, anemia, renal failure, cellulitis, among others. EMERGENCY DEPARTMENT PROCEDURES: MEDICAL DECISION MAKING: There is no leukocytosis or concerning anemia. There is a normal platelet count. INR is 3.3, elevated from her warfarin use. VBG did not show acidosis but there was some CO2 retention, possibly chronic. No renal failure. Lactic acid level was not elevated making sepsis less likely. No worrisome liver enzyme elevation. ECG showed a normal sinus rhythm, no obvious acute ST elevation. Cardiac enzyme testing x 1 is currently pending. Chest x-ray did not show concerning CHF, no pneumonia. BNP was elevated consistent with fluid overload. Bilateral lower extremity ultrasound did not show findings of DVT. Respiratory bio fire was negative. Patient was maintained on nasal cannula O2. She was given IV Solu-Medrol, IV Lasix. She was given IV ceftriaxone for the potential left lower extremity cellulitis. The patient presents hypoxic and short of breath. She has had significant pedal edema. She likely has an early cellulitis in the left lower extremity. She is going to require a hospital stay, observation/monitoring, further diuresis and care for her COPD. I spoke with the patient and case management. The on-call hospitalist was consulted. Prior/Outside records/notes reviewed: Today's EMS notes describing her presentation and transport to this hospital. ECG per my interpretation: Indication was shortness of breath. The ECG shows a normal sinus rhythm with a rate of 60. There is significant baseline artifact. No obvious ST elevation. There appears to be an incomplete right bundle branch block. No PVCs. The QTc was 440. Continuous Cardiac Monitoring per my interpretation: An order was placed for continuous cardiac monitoring. The monitor shows a rate of 60 with normal sinus rhythm. Imaging/x-ray results per my interpretation: Chest x-ray shows some chronic change. No focal pneumonia, no pneumothorax. No concerning CHF. Chronic Medical/Social conditions affecting care: Advanced age, history of A- fib on warfarin. Care/Management discussed with: Case management, the on-call hospitalist. Level of care consideration(s): After review of the information above and other included data: --I believe the patient requires escalation of care to admission DISPOSITION: Admission Past Med/Surg History Problem List (Updated 02/06/24 @ 17:41 by Geo Roque MD) Cellulitis (Acute) Fluid overload (Acute) Anticoagulated on Coumadin (Acute) Pedal edema (Acute) SOB (shortness of breath) (Acute) COPD exacerbation (Acute) Hypoxia (Acute) NSTEMI (non-ST elevated myocardial infarction) Elevated brain natriuretic peptide (BNP) level (Acute) Elevated troponin (Acute) Substernal chest pain (Acute) Chest pain Acute hypoxemic respiratory failure Dyspnea (Acute) Hypoxia (Acute) Acute exacerbation of chronic obstructive pulmonary disease (COPD) (Acute) Venous insufficiency (Chronic) COPD (chronic obstructive pulmonary disease) (Chronic) Prediabetes (Chronic) Hyperlipidemia (Chronic) Hypotension (Acute) Tobacco abuse (Chronic) S/P right coronary artery (RCA) stent placement (Chronic) CAD (coronary artery disease), elim ira coronary artery (Chronic) Emphysema of lung (Chronic) Hypertension (Chronic) Atrial fibrillation with rapid ventricular response (Acute) Medical History (Updated 02/06/24 @ 17:41 by Geo Roque MD) Paroxysmal atrial fibrillation Surgical History H/O: hysterectomy S/P appendectomy Family History Other Colon cancer Social History Smoking Status: Current some day smoker Tobacco Type: Cigarettes Cigarettes Per Day: 3-5; Second Hand Exposure: No; Do You Dip or Chew Tobacco: No; Hx Alcohol Use: No Hx Substance Use: No Preferred Language: Gu[place]ian Communication Ability: Effective Ict Help Desk Officer Required: No Beliefs That Will Affect Care: None Current Living Situation: Alone Feels Safe at Home: Yes Assistive Devices: Glasses Allergies Allergies Allergy/AdvReac Type Severity Reaction Status Date / Time dog dander Allergy Severe congestion, Verified 02/06/24 16:24 SOB valsartan Allergy Severe Edema Verified 02/06/24 16:24 face/lips/tongue. levofloxacin [From Levaquin] Allergy Intermediate ITCHY Verified 02/06/24 16:24 HIVES ON TRUNK AND LEGS nickel Allergy Mild Rash. Verified 02/06/24 16:24 NAI Inhibitors AdvReac Intermediate Cough. Verified 02/06/24 16:24 influenza virus vaccine ts AdvReac Intermediate SINUS Verified 02/06/24 16:24 [id number] (36 mos,up) PRESSURE/DRAINAGE [From Fluarix] Home Meds Home Medications Medication Instructions Recorded Confirmed furosemide 20 mg tablet 20 mg PO QAM 05/06/19 09/03/24 nitroglycerin 0.4 mg sublingual 0.4 mg sublingual DIRECTED PRN 04/19/19 02/06/24 tablet Chest Pain sotalol 80 mg tablet 80 mg PO BID 04/19/19 02/06/24 atorvastatin 40 mg tablet 40 mg PO HS 09/09/21 02/06/24 aspirin 81 mg tablet,delayed 81 mg PO QAM 01/17/23 02/06/24 release azelastine 137 mcg (0.1 %) nasal 1 spray intranasal AMHS 01/17/23 02/06/24 spray budesonide 160 mcg-glycopyr 9 2 inh inhalation [facility] 01/17/23 02/06/24 mcg-formot 4.8 mcg/actuation HFA inhaler (Breztri Aerosphere) spironolactone 25 mg tablet 25 mg PO QAM 01/17/23 02/06/24 warfarin 2.5 mg tablet 2.5 mg PO QPM 01/17/23 02/06/24 albuterol sulfate 2.5 mg/3 mL 2.5 mg inhalation DIRECTED PRN 06/26/23 02/06/24 (0.083 %) solution for nebulization Shortness Of Breath Or Wheezing albuterol sulfate 90 mcg/actuation 2 inh inhalation Q4H PRN Shortness 01/02/24 02/06/24 aerosol inhaler Of Breath Or Wheezing Previous Rx's Medication Instructions Recorded isosorbide mononitrate 30 mg 30 mg PO QAM #30 tabs 06/27/23 tablet,extended release 24 hr sucralfate 100 mg/mL oral 10 ml PO QID #420 mL 01/06/24 suspension (Carafate) Results & Data (ED) Vital Signs Vital Signs - 24 hr 02/06/24 14:35 02/06/24 14:39 02/06/24 14:40 Temperature 36.6 C Temperature Source Oral Pulse Rate 60 60 Pulse Rate [Apical] Respiratory Rate 15 Respiratory Effort / Characteristics Labored Respiratory Depth Normal Blood Pressure 174/79 H Blood Pressure [Right Arm] Blood Pressure Mean 110 Blood Pressure Mean [Right Arm] Pulse Oximetry 88 L 88 L Oxygen Delivery Method Room Air Room Air Oxygen Flow Rate Sepsis Recent Fever Within 48 Hours No Sepsis New/Unexplained Change in Mental Status No Sepsis Action Taken by Nursing No Action Required Oxygen Flow Rate - Titration 2 Pulse Oximetry Post Tiitration 97 02/06/24 15:06 02/06/24 15:07 02/06/24 16:34 Temperature Temperature Source Pulse Rate Pulse Rate [Apical] 55 L 60 Respiratory Rate 18 Respiratory Effort / Characteristics Non-Labored Respiratory Depth Normal Blood Pressure Blood Pressure [Right Arm] 174/79 H Blood Pressure Mean Blood Pressure Mean [Right Arm] 110 Pulse Oximetry 99 99 100 Oxygen Delivery Method Nasal Cannula Nasal Cannula Oxygen Flow Rate 2 Sepsis Recent Fever Within 48 Hours Sepsis New/Unexplained Change in Mental Status Sepsis Action Taken by Nursing Oxygen Flow Rate - Titration Pulse Oximetry Post Tiitration Home Medications Current Medication List: was personally reviewed by me Laboratory Data Attestation: I reviewed the patient's lab results. 02/06/24 14:45 02/06/24 14:45 Lab Results 02/06/24 02/06/24 02/06/24 Range/Units 14:45 15:00 16:38 WBC 9.35 (4.8-10.8) K/ul RBC 4.51 (4.20-5.40) M/uL Hgb 14.4 (12.0-16.0) g/dl Hct 41.9 (37.0-47.0) % MCV 92.9 (80.0-100.0) fL MCH 31.9 (25.0-34.0) pg MCHC 34.4 (32.0-36.0) g/dL RDW Std Deviation 50.8 H (36.4-46.3) fL RDW Coeff of Anais 14.9 H (11.5-14.5) % Plt Count 212 (130-400) K/uL MPV 11.5 (9.4-12.4) fL Immature Gran % (Auto) 0.2 % Neut % (Auto) 73.0 % Lymph % (Auto) 16.1 % [place] % (Auto) 9.5 % Eos % (Auto) 1.0 % Baso % (Auto) 0.2 % Neut # (Auto) 6.82 H (1.40-6.50) K/uL Lymph # (Auto) 1.51 (1.20-3.40) K/uL [place] # (Auto) 0.89 H (0.11-0.59) K/uL Eos # (Auto) 0.09 (0.00-0.50) K/uL Baso # (Auto) 0.02 (0.00-0.20) K/uL Immature Gran # (Auto) 0.02 (0.01-0.20) K/uL PT 32.2 H (9.0-12.0) Seconds INR 3.3 H (0.9-1.1) APTT 40 H (21-31) Seconds PTT Ratio 1.5 VBG pH 7.36 (7.36-7.41) VBG pCO2 74 H (38-50) mmHg VBG pO2 < 20 mmHg VBG HCO3 42 mmol/L VBG O2 Saturation < 60.0 % VBG Base Excess 12.9 mEq/L Sodium 137 (136-145) mmol/L Potassium 3.5 (3.5-5.1) mmol/L Chloride 95 L (98-107) mmol/L Carbon Dioxide 36 H (21-32) mmol/L Anion Gap 6 (3-11) BUN 23 (6-23) mg/dl Creatinine 0.71 (0.6-1.2) mg/dl Est Cr Clr Drug Dosing 59.2 ml/min Est GFR ( Amer) 93.2 ml/min Est GFR (Non-Af Amer) 80.4 ml/min BUN/Creatinine Ratio 32.4 H (10-20) Glucose 104 H (70-99(Fasting)) mg/dl Lactate 0.8 (0.4-2.0) mmol/L Calcium 8.9 (8.6-10.3) mg/dl Magnesium 1.9 (1.7-2.4) mg/dl Total Bilirubin 1.4 H (0.2-1.0) mg/dl AST 18 (13-39) U/L ALT 18 (7-52) U/L Alkaline Phosphatase 73 (34-104) U/L B-Natriuretic Peptide 344 H (0-100) pg/ml Total Protein 6.7 (6.0-8.3) gm/dl Albumin 3.8 (3.4-5.0) gm/dl Globulin 2.9 (2.5-4.0) gm/dl Albumin/Globulin Ratio 1.3 (0.9-2) Adenovirus (PCR) Not Detected (NotDetected) B. pertussis DNA (PCR) Not Detected (NotDetected) B.parapertussis DNA PCR Not Detected (NotDetected) C. pneumoniae DNA (PCR) Not Detected (NotDetected) Coronavirus OC43 (PCR) Not Detected (NotDetected) Coronavirus HKU1 (PCR) Not Detected (NotDetected) Coronavirus 229E (PCR) Not Detected (NotDetected) SARS-CoV-2 (PCR) Not Detected (NotDetected) Coronavirus NL63 (PCR) Not Detected (NotDetected) Human Metapneumovir PCR Not Detected (NotDetected) Influenza Type A (PCR) Not Detected (NotDetected) Influenza Type B (PCR) Not Detected (NotDetected) M. pneumoniae (PCR) Not Detected (NotDetected) Parainfluenza 1 (PCR) Not Detected (NotDetected) Parainfluenza 2 (PCR) Not Detected (NotDetected) Parainfluenza 3 (PCR) Not Detected (NotDetected) Parainfluenza 4 (PCR) Not Detected (NotDetected) RSV (PCR) Not Detected (NotDetected) Entero/Rhino (PCR) Not Detected (NotDetected) Administered Medications Discontinued Medications Furosemide (Furosemide 40 Mg/4 Ml Vial) 40 mg IV ONE ONE Stop: 02/06/24 16:02 Last Admin: 02/06/24 16:27 Dose: 40 mg Documented By: JUSTIN Ceftriaxone Sodium (Rocephin) 2,000 mg in 50 mls @ 100 mls/hr IV NOW STA Stop: 02/06/24 15:21 Last Infusion: 02/06/24 16:27 Dose: Infused Documented By: Admin: 02/06/24 15:25 Dose: 100 mls/hr Documented By: JUSTIN Methylprednisolone (Methylprednisolone 125 Mg/2 Ml Vial) 60 mg IV NOW STA Stop: 02/06/24 14:53 Last Admin: 02/06/24 15:25 Dose: 60 mg Documented By: JUSTIN Imaging Data Radiologist's Impression: Chest X-Ray 02/06/24 14:39 XR chest 1V portable CLINICAL HISTORY: Dyspnea. COMPARISON STUDY: Chest radiograph and chest CT January 05, 2024. FINDINGS: There is no pneumothorax or pleural effusion. There is no consolidation to suggest pneumonia. No evidence for pulmonary edema. Emphysema is present. Cardiomediastinal silhouette is normal. An irregular left upper lobe nodule is again noted. IMPRESSION: 1. No acute cardiopulmonary findings. 2. Redemonstration of a suspicious left upper lobe lesion. 3. Emphysema. ACT 112: Positive. There are findings on this exam that require communication between the performing entity and the patient following Patient Test Result Information Act [place] Act 112) guidelines. Electronically signed by: Félix Edwards M.D. 02/06/2024 3:39 PM Venous Doppler Study 02/06/24 15:08 BILATERAL LOWER EXTREMITY VENOUS DOPPLER CLINICAL HISTORY: Bilateral lower extremity swelling. COMPARISON STUDY: No previous studies for comparison. TECHNIQUE: Sonography of the deep venous system of the bilateral lower extremities was performed. Compression and augmentation were evaluated. FINDINGS: The bilateral common femoral, superficial femoral and popliteal veins were compressible. Augmentation was normal. Flow was shown within the deep calf vessels. IMPRESSION: No evidence of deep venous thrombus within the bilateral lower extremities. ACT 112: Negative or not required by law. Electronically signed by: Félix Edwards M.D. 02/06/2024 4:11 PM Discharge Plan Visit Data Chief Complaint: Shortness of Breath/Dyspnea ED Provider: Geo Roque Discharge Problem: Hypoxia, COPD exacerbation, SOB (shortness of breath), Pedal edema, Anticoagulated on Coumadin, Fluid overload, Cellulitis Patient Disposition: Admitted As Inpatient Condition: Fair Forms Stand Alone Forms: [facility] Prescriptions Prescriptions: No Action furosemide 20 mg Tablet 20 mg PO QAM sotalol 80 mg Tablet 80 mg PO BID nitroglycerin 0.4 mg Tablet, Sublingual 0.4 mg sublingual DIRECTED PRN (Reason: Chest Pain) Rx Instructions: Place 1 Tablet under the tongue every 5 minutes as needed. atorvastatin 40 mg tablet 40 mg PO HS spironolactone 25 mg tablet 25 mg PO QAM Breztri Aerosphere 160-9-4.8 mcg/actuation HFA aerosol inhaler 2 inh INHALATION AMHS aspirin 81 mg Tablet,Delayed Release (Dr/Ec) 81 mg PO QAM azelastine 137 mcg (0.1 %) aerosol,spray 1 spray INTRANASAL [facility] warfarin 2.5 mg tablet 2.5 mg PO QPM Rx Instructions: 1.25 mg every Sat; 2.5 mg all other days. albuterol sulfate 2.5 mg /3 mL (0.083 %) Solution For Nebulization 2.5 mg INHALATION DIRECTED PRN (Reason: Shortness Of Breath Or Wheezing) isosorbide mononitrate 30 mg Tablet Extended Release 24 Hr 30 mg PO QAM Qty: 30 0RF sucralfate [Carafate] 100 mg/mL suspension 10 ml PO QID Qty: 420 0RF Rx Instructions: Swish in mouth and swallow; use after food/drink: may substitute tablets as a slurry. albuterol sulfate 90 mcg/actuation HFA aerosol inhaler 2 inh INHALATION Q4H PRN (Reason: Shortness Of Breath Or Wheezing) Referrals Referrals: Khoa Hui MD [Primary Care Provider] - Discharge Problem: Fluid overload Qualifiers: Hypervolemia type: unspecified Qualified Code(s): E87.70 - Fluid overload, unspecified Cellulitis Qualifiers: Site of cellulitis: extremity Site of cellulitis of extremity: lower extremity Laterality: left Qualified Code(s): L03.116 - Cellulitis of left lower limb
[2024-02-06 15:22] LABS: Basophils # (auto) 0.02 K/uL (0.00-0.20); Basophils % (auto) 0.2 %; Eosinophils # (auto) 0.09 K/uL (0.00-0.50); Hematocrit (blood only) 41.9 % (37.0-47.0); Hemoglobin 14.4 g/dl (12.0-16.0); Immature Granulocytes # (auto) 0.02 K/uL (0.01-0.20); Immature Granulocytes % (auto) 0.2 %; Lymphocytes # (auto) 1.51 K/uL (1.20-3.40); Lymphocytes % (auto) 16.1 %; Mean Corpuscular Hemoglobin 31.9 pg (25.0-34.0); Mean Corpuscular Hgb Conc 34.4 g/dL (32.0-36.0); Mean Corpuscular Volume 92.9 fL (80.0-100.0); Mean Platelet Volume 11.5 fL (9.4-12.4); Monocytes # (auto) 0.89 K/uL (0.11-0.59); Monocytes % (auto) 9.5 %; Neutrophils # (auto) 6.82 K/uL (1.40-6.50); Platelet Count 212 K/uL (130-400); RDW Coefficient of Variation 14.9 % (11.5-14.5); RDW Standard Deviation 50.8 fL (36.4-46.3); Red Blood Count 4.51 M/uL (4.20-5.40); White Blood Count 9.35 K/ul (4.8-10.8)
[2024-02-06] MEDS: cefTRIAXone SODIUM 2,000 MG/50 ML BAG IV STA (15:25)
[2024-02-06] MEDS: methylPREDNISolone 125 MG/2 ML VIAL IV STA (15:25)
[2024-02-06 15:40] LABS: Albumin Globulin Ratio 1.3 (0.9-2); Albumin Level 3.8 gm/dl (3.4-5.0); BUN Creatinine Ratio 32.4 (10-20); Bilirubin,Total 1.4 mg/dl (0.2-1.0); Calcium 8.9 mg/dl (8.6-10.3); Creatinine Clr Calc Pharmacy 59.2 ml/min; Est GFR (African American) 93.2 ml/min; Est GFR (Non-African American) 80.4 ml/min; Globulin 2.9 gm/dl (2.5-4.0); Magnesium 1.9 mg/dl (1.7-2.4); Potassium 3.5 mmol/L (3.5-5.1); Total Protein 6.7 gm/dl (6.0-8.3)
--- NOTE | 2024-02-06 15:41 | XRay Report ---
XR chest 1V portable CLINICAL HISTORY: Dyspnea. COMPARISON STUDY: Chest radiograph and chest CT January 05, 2024. FINDINGS: There is no pneumothorax or pleural effusion. There is no consolidation to suggest pneumoni a. No evidence for pulmonary edema. Emphysema is present. Cardiomediastinal silhouette is normal. An irregular left upper lobe nodule is again noted. IMPRESSION: 1. No acute cardiopulmonary findings. 2. Redemonstration of a suspicious left upper lobe lesion. 3. Emphysema. ACT 112: Positive. There are findings on this exam that require communication between the performing entity and the patient following Patient Test Result Information Act [place] Act 112) guidelines. Electronically signed by: Félix Edwards M.D. 02/06/2024 3:39 PM
[2024-02-06 15:51] LABS: INR 3.3 (0.9-1.1); Partial Thromboplastin Ratio 1.5; Partial Thromboplastin Time 40 Seconds (21-31); Prothrombin Time 32.2 Seconds (9.0-12.0)
--- NOTE | 2024-02-06 16:13 | Ultrasound Report ---
BILATERAL LOWER EXTREMITY VENOUS DOPPLER CLINICAL HISTORY: Bilateral lower extremity swelling. COMPARISON STUDY: No previous studies for comparison. TECHNIQUE: Sonography of the deep venous system of the bilateral lower extremities was performed. Co mpression and augmentation were evaluated. FINDINGS: The bilateral common femoral, superficial femoral and popliteal veins were compressible. A ugmentation was normal. Flow was shown within the deep calf vessels. IMPRESSION: No evidence of deep venous thrombus within the bilateral lower extremities. ACT 112: Negative or not required by law. Electronically signed by: Félix Edwards M.D. 02/06/2024 4:11 PM
[2024-02-06] MEDS: FUROSEMIDE 40 MG/4 ML VIAL IV ONE (16:27)
[2024-02-06 16:33] LABS: Adenovirus PCR Not Detected (NotDetected); Bordetella parapertussis PCR Not Detected (NotDetected); Bordetella pertussis PCR Not Detected (NotDetected); Chlamydia pneumoniae PCR Not Detected (NotDetected); Coronavirus 229E PCR Not Detected (NotDetected); Coronavirus CoV-2 (COVID19)PCR Not Detected (NotDetected); Coronavirus HKU1 PCR Not Detected (NotDetected); Coronavirus NL63 PCR Not Detected (NotDetected); Coronavirus OC43PCR Not Detected (NotDetected); Human Metapneumovirus PCR Not Detected (NotDetected); Influenza A PCR Not Detected (NotDetected); Influenza B PCR Not Detected (NotDetected); Mycoplasma pneumoniae PCR Not Detected (NotDetected); Parainfluenza Virus 1 PCR Not Detected (NotDetected); Parainfluenza Virus 2 PCR Not Detected (NotDetected); Parainfluenza Virus 3 PCR Not Detected (NotDetected); Parainfluenza Virus 4 PCR Not Detected (NotDetected); Respiratory Syncytial VirusPCR Not Detected (NotDetected); Rhinovirus/Enterovirus PCR Not Detected (NotDetected)
--- NOTE | 2024-02-06 16:36 | History & Physical Report ---
Date of Service February 06, 2024 Assessment & Plan (1) Acute on chronic respiratory failure: (2) Bilateral lower extremity edema: (3) Left upper lobe pulmonary nodule: (4) Bilateral lower leg cellulitis: Plan Lila Rolle is an 78y/o F with PMHx of dyslipidemia, prediabetes, HTN, COPD, chronic respiratory failure with hypoxia [not currently on home oxygen therapy], SUSHIL lung nodule, paroxysmal atrial fibrillation [on warfarin], chronic diastolic heart failure, pulmonary hypertension, CAD s/p RCA stent placement (2019), tobacco use disorder, elevated TSH and other problems listed below who presented to the ED via EMS for evaluation of worsening SOB/dyspnea and BLE edema. Patient with worsening SOB and BLE edema over the past couple of days. Was sating at 88% on RA per EMS, was placed on supplemental O2 via NC. She is currently on 3L via NC and sating ~92-94%. Of note, patient reports she cannot tolerate DuoNeb treatments. Reports DuoNebs cause her to revert back into A-fib. Most recent echo was done on 06/27/2023 and showed the following: moderate concentric LV hypertrophy, no regional wall motion abnormalities, normal LV systolic function, LVEF=65-70%, mild mitral regurgitation, mild tricuspid regurgitation, moderately elevated pulmonary artery systolic pressure of 51 mmHg and grade 1 diastolic dysfunction. Acute on Chronic Respiratory Failure, Likely COPD Exacerbation: History as per above. No leukocytosis. VBG pCO2 74, however pH WNL. RVP negative. UA pending. Continue w/ supplemental O2 via NC. S/p 60mg IV Solu-Medrol in ED. Continue w/ 40mg IV Solu-Medrol BID for now. Pulmonary toilet w/ scheduled albuterol nebs, incentive spirometry & flutter valve. Follow AM labs. Repeat VBG in AM to monitor respiratory status. PT/OT evals. Continue home Breztri. Bilateral LE Edema Chronic Diastolic HF: CXR negative for pulmonary edema. Notable BLE edema on exam. BLE venous doppler US negative. BNP 344. Has Purewick in place. Elevate legs. S/p 40mg IV Lasix x 1 in ED. Will continue w/ IV Lasix 40mg daily starting tomorrow AM. K+ supplement added. Echo pending. May benefit from cardiology consult. Left Upper Lobe Lung Nodule: Enlarged, hypermetabolic left upper lobe nodule measuring up to 2.3 cm concerning for primary lung malignancy visualized on PET scan performed 01/22/24. Patient was supposed to see Dr. Clarke w/ [facility] today, however she had to cancel her appointment 2/2 increasing SOB. Routine pulmonology consult placed. Bilateral Lower Leg Cellulitis Bilateral LE Venous Stasis Dermatitis: No leukocytosis. No recent fevers. Notable redness and warmth to touch on exam. S/p 2g IV Rocephin in ED. Will continue IV Rocephin. Also added on IV doxycycline to cover respiratory as well. MRSA swab pending. Wound care consulted. Elevated Troponin: Trop 17.8 on presentation. Likely chronically elevated 2/2 heart failure. EKG in ED w/o any ischemic changes. However will trend trop Q6H x 2. Dysphagia: Patient reports history of dysphagia. No recent episodes according to patient and her daughter. Bedside dysphagia screening ordered. Can proceed w/ easy to chew diet if patient passes screening. HTN: Continue home sotalol and Imdur. Hold home diuretics in setting of active IV diuresis. Monitor BP closely. Paroxysmal AFib: INR 3.3 on admission. Patient currently on warfarin 1.25mg every Monday & 2.5mg every other day. EKG today showing NSR, incomplete RBBB unchanged from previous EKGs. Will hold tonight's dose of warfarin. Repeat PT/INR in AM. Other Chronic Medical Conditions: CAD/dyslipidemia --> Continue home ASA and atorvastatin. DVT Prophylaxis: On warfarin [employer], holding for now 2/2 supratherapeutic INR. Code Status: FULL CODE - As per discussion with patient at bedside in ED. PCP: Khoa Hui MD Disposition: Admit to PCU/Telemetry - Patient will certainly need 2-step prior to d/c when the time comes. Likely to be sent home on supplemental O2 therapy. Patient seen in collaboration with Dr. Hatch. Please see addendum. I spent a total of 85 minutes coordinating, documenting, and providing care for this patient excluding time spent in the performance of separately billed services. This included personally reviewing all current laboratories and imaging studies, medical reconciliation, outpatient chart review and discussion with specialists. This chart was completed in part utilizing Speech Voice Recognition Software. Grammatical errors, random word insertions, pronoun errors, and incomplete sentences are an occasional consequence of this system due to software limitations, ambient noise, and hardware issues. Any formal questions or concerns about the content, text, or information contained within the body of this dictation should be directly addressed to the provider for clarification. History of Present Illness Chief Complaint: SOB/Dyspnea & BLE Edema Primary Care Provider: Khoa Hui MD Lila Rolle is an 78y/o F with PMHx of dyslipidemia, prediabetes, HTN, COPD, chr onic respiratory failure with hypoxia [not currently on home oxygen therapy], SUSHIL lung nodule, paroxysmal atrial fibrillation [on warfarin], chronic diastolic heart failure, pulmonary hypertension, CAD s/p RCA stent placement (2019), tobacco use disorder, elevated TSH and other problems listed below who presented to the ED via EMS for evaluation of worsening SOB/dyspnea and BLE edema. History obtained from patient, daughter at bedside and associated chart review. Patient with worsening SOB and BLE edema over the past couple of days. Has been taking her oral Lasix as prescribed and tries to stick to a low sodium diet. She does live alone, however her daughter visits her regularly. Patient does not wear supplemental O2 at home. She was advised to start using supplemental O2 by her PCP years ago according to her daughter, but the patient has been adamant against using it. She is currently on 3L via NC in the ED and sating ~92-94%. Reports her albuterol inhaler have not been working well at home. She has not noticed a weight gain, however she has not been weighing herself regularly. Denies any urinary or bowel habit changes. No chest pain. Has been experiencing some redness of her LLE for the past week. No fevers or chills. She has however noted some serous fluid drainage from her RLE. Of note, patient reports she cannot tolerate DuoNeb treatments. Reports DuoNebs cause her to revert back into A-fib. Most recent echo was done on 06/27/2023 and showed the following: moderate concentric LV hypertrophy, no regional wall motion abnormalities, normal LV systolic function, LVEF=65-70%, mild mitral regurgitation, mild tricuspid regurgitation, moderately elevated pulmonary artery systolic pressure of 51 mmHg and grade 1 diastolic dysfunction. Allergies Allergy/AdvReac Type Severity Reaction Status Date / Time dog dander Allergy Severe congestion, Verified 02/06/24 16:24 SOB valsartan Allergy Severe Edema Verified 02/06/24 16:24 face/lips/tongue. levofloxacin [From Levaquin] Allergy Intermediate ITCHY Verified 02/06/24 16:24 HIVES ON TRUNK AND LEGS nickel Allergy Mild Rash. Verified 02/06/24 16:24 NAI Inhibitors AdvReac Intermediate Cough. Verified 02/06/24 16:24 influenza virus vaccine ts AdvReac Intermediate SINUS Verified 02/06/24 16:24 [id number] (36 mos,up) PRESSURE/DRAINAGE [From Fluarix] Home Medications Medication Instructions Recorded Confirmed Type furosemide 20 mg tablet 20 mg PO QAM 10/08/18 02/06/24 History nitroglycerin 0.4 mg sublingual 0.4 mg sublingual DIRECTED PRN 04/19/19 02/06/24 History tablet Chest Pain sotalol 80 mg tablet 80 mg PO BID 04/19/19 02/06/24 History atorvastatin 40 mg tablet 40 mg PO HS 09/09/21 02/06/24 History aspirin 81 mg tablet,delayed 81 mg PO QAM 01/17/23 02/06/24 History release azelastine 137 mcg (0.1 %) nasal 1 spray intranasal [facility] 01/17/23 02/06/24 History spray budesonide 160 mcg-glycopyr 9 2 inh inhalation [facility] 01/17/23 02/06/24 History mcg-formot 4.8 mcg/actuation HFA inhaler (Breztri Aerosphere) spironolactone 25 mg tablet 25 mg PO QAM 01/17/23 02/06/24 History warfarin 2.5 mg tablet 2.5 mg PO QPM 01/17/23 02/06/24 History albuterol sulfate 2.5 mg/3 mL 2.5 mg inhalation DIRECTED PRN 06/26/23 02/06/24 History (0.083 %) solution for nebulization Shortness Of Breath Or Wheezing isosorbide mononitrate 30 mg 30 mg PO QAM #30 tabs 06/27/23 02/06/24 Rx tablet,extended release 24 hr albuterol sulfate 90 mcg/actuation 2 inh inhalation Q4H PRN Shortness 01/02/24 02/06/24 History aerosol inhaler Of Breath Or Wheezing sucralfate 100 mg/mL oral 10 ml PO QID #420 mL 01/06/24 02/06/24 Rx suspension (Carafate) Past Med/Surg History Problem List Bilateral lower leg cellulitis Bilateral lower extremity edema Left upper lobe pulmonary nodule Acute on chronic respiratory failure Cellulitis (Acute) Fluid overload (Acute) Anticoagulated on Coumadin (Acute) Pedal edema (Acute) SOB (shortness of breath) (Acute) COPD exacerbation (Acute) Hypoxia (Acute) NSTEMI (non-ST elevated myocardial infarction) Elevated brain natriuretic peptide (BNP) level (Acute) Elevated troponin (Acute) Substernal chest pain (Acute) Chest pain Acute hypoxemic respiratory failure Dyspnea (Acute) Hypoxia (Acute) Acute exacerbation of chronic obstructive pulmonary disease (COPD) (Acute) Venous insufficiency (Chronic) COPD (chronic obstructive pulmonary disease) (Chronic) Prediabetes (Chronic) Hyperlipidemia (Chronic) Hypotension (Acute) Tobacco abuse (Chronic) S/P right coronary artery (RCA) stent placement (Chronic) CAD (coronary artery disease), [place] coronary artery (Chronic) Emphysema of lung (Chronic) Hypertension (Chronic) Atrial fibrillation with rapid ventricular response (Acute) Medical History Paroxysmal atrial fibrillation Surgical History H/O: hysterectomy S/P appendectomy Family History Other Colon cancer Social History Smoking Status: Current some day smoker Tobacco Type: Cigarettes Cigarettes Per Day: 3-5; Second Hand Exposure: No; Do You Dip or Chew Tobacco: No; Hx Alcohol Use: No Hx Substance Use: No Preferred Language: Luxembourger Communication Ability: Effective Banker Mason Required: No Beliefs That Will Affect Care: None Current Living Situation: Alone Feels Safe at Home: Yes Assistive Devices: Glasses Review of Systems Review of Systems: At least ten systems reviewed and negative, except as noted in the HPI. Physical Exam Physical Exam: Please refer to Dr. Hatch's addendum for physical examination findings. Results & Data Results & Data Vital Signs (Past 12 Hours) Vital Signs Temp Pulse Pulse Resp BP BP Pulse Ox 02/06/24 16:34 60 18 157/111 H 100 02/06/24 15:07 55 L 174/79 H 99 02/06/24 15:06 99 02/06/24 14:40 60 02/06/24 14:39 88 L 02/06/24 14:35 36.6 C 60 15 174/79 H 88 L O2 Del Method O2 Flow Rate 02/06/24 16:34 02/06/24 15:07 Nasal Cannula 02/06/24 15:06 Nasal Cannula 2 02/06/24 14:40 02/06/24 14:39 Room Air 02/06/24 14:35 Room Air Laboratory Results Short CBC 02/06/24 Range/Units 14:45 WBC 9.35 (4.8-10.8) K/ul Hgb 14.4 (12.0-16.0) g/dl Hct 41.9 (37.0-47.0) % Plt Count 212 (130-400) K/uL BMP 02/06/24 14:45 Sodium 137 Potassium 3.5 Chloride 95 L Carbon Dioxide 36 H BUN 23 Creatinine 0.71 Glucose 104 H Calcium 8.9 Liver Function 02/06/24 Range/Units 14:45 Total Bilirubin 1.4 H (0.2-1.0) mg/dl AST 18 (13-39) U/L ALT 18 (7-52) U/L Alkaline Phosphatase 73 (34-104) U/L Albumin 3.8 (3.4-5.0) gm/dl Diagnostic Findings Chest X-Ray 02/06/24 14:39 XR chest 1V portable CLINICAL HISTORY: Dyspnea. COMPARISON STUDY: Chest radiograph and chest CT January 05, 2024. FINDINGS: There is no pneumothorax or pleural effusion. There is no consolidation to suggest pneumonia. No evidence for pulmonary edema. Emphysema is present. Cardiomediastinal silhouette is normal. An irregular left upper lobe nodule is again noted. IMPRESSION: 1. No acute cardiopulmonary findings. 2. Redemonstration of a suspicious left upper lobe lesion. 3. Emphysema. ACT 112: Positive. There are findings on this exam that require communication between the performing entity and the patient following Patient Test Result Information Act [place] Act 112) guidelines. Electronically signed by: Félix Edwards M.D. 02/06/2024 3:39 PM Venous Doppler Study 02/06/24 15:08 BILATERAL LOWER EXTREMITY VENOUS DOPPLER CLINICAL HISTORY: Bilateral lower extremity swelling. COMPARISON STUDY: No previous studies for comparison. TECHNIQUE: Sonography of the deep venous system of the bilateral lower extremities was performed. Compression and augmentation were evaluated. FINDINGS: The bilateral common femoral, superficial femoral and popliteal veins were compressible. Augmentation was normal. Flow was shown within the deep calf vessels. IMPRESSION: No evidence of deep venous thrombus within the bilateral lower extremities. ACT 112: Negative or not required by law. Electronically signed by: Félix Edwards M.D. 02/06/2024 4:11 PM Medications Administered Discontinued Medications Furosemide (Furosemide 40 Mg/4 Ml Vial) 40 mg IV ONE ONE Stop: 02/06/24 16:02 Last Admin: 02/06/24 16:27 Dose: 40 mg Documented By: JUSTIN Ceftriaxone Sodium (Rocephin) 2,000 mg in 50 mls @ 100 mls/hr IV NOW STA Stop: 02/06/24 15:21 Last Infusion: 02/06/24 16:27 Dose: Infused Documented By: Admin: 02/06/24 15:25 Dose: 100 mls/hr Documented By: JUSTIN Methylprednisolone (Methylprednisolone 125 Mg/2 Ml Vial) 60 mg IV NOW STA Stop: 02/06/24 14:53 Last Admin: 02/06/24 15:25 Dose: 60 mg Documented By: JUSTIN Code Status & VTE Plan Code Status FULL CODE Supervising Physician Co-Signing Physician Notes Attending addendum: The patient was seen and examined in the emergency room. She has been complaining of bilateral leg swelling and pain associated with increasing shortness of breath recently. Denies any chest pain and/or palpitation and does not have any fever and no chills, no nausea and vomiting On examination Mild to moderate shortness of breath at rest Afebrile with blood pressure on the upper side at 175/75 Chest- decreased breath sounds bilaterally with wheezing and minimal bibasilar crackles HeartS1-S2 regular no murmur appreciated Abdomenbenign Extremitiesbilateral leg swelling more on the left than the right. Chronic leg swelling with skin changes. Redness and tenderness with increased local temperature. Open wound lateral side of right ankle CNSalert, awake and oriented x 3. Generally weak and lethargic Her labs, medications, EKG and imaging studies reviewed Hasbilateral leg edema with cellulitis: Started on intravenous ceftriaxone and will add oral doxycycline to cover respiratory as well Likely has COPD exacerbation: Will continue nebulized bronchodilator and Solu- Medrol 40 mg twice daily and antibiotics as above Has left upper lobe lung nodule: Will get pulmonary consult for possible bronchoscopy down the line Paroxysmal atrial fibrillation: Patient is in sinus rhythm. Will continue Coumadin and monitor INR Agree with assessment plan as outlined above by Eunice Childs PA-C and take the full responsibility of the care Dr Erasmo Hatch (1) Acute on chronic respiratory failure Respiratory failure complication: hypoxia and hypercapnia Qualified Code(s): J96.21 - Acute and chronic respiratory failure with hypoxia; J96.22 - Acute and chronic respiratory failure with hypercapnia
[2024-02-06 16:50] LABS: Base Excess VBG 12.9 mEq/L; HCO3 VBG 42 mmol/L; Oxygen Saturation VBG < 60.0 %; PCO2 VBG 74 mmHg (38-50); PO2 VBG < 20 mmHg; pH VBG 7.36 (7.36-7.41)
[2024-02-06 17:45] LABS: Troponin I High Sensitivity 17.8 pg/ml (0-14)
--- NOTE | 2024-02-06 18:01 | Electrocardiogram Report ---
Test Reason : Blood Pressure : */* mmHG Vent. Rate : 60 BPM Atrial Rate : 60 BPM P-R Int : 136 ms QRS Dur : 94 ms QT Int : 440 ms P-R-T Axes : 78 92 128 degrees QTcB Int : 440 ms Poor data quality, interpretation may be adversely affected Normal sinus rhythm Rightward axis Incomplete right bundle branch block Nonspecific ST abnormality Abnormal ECG When compared with ECG of 05-Jan-2024 19:09, No significant change was found Confirmed by Phong Choi ([id number]) on 02/06/2024 6:00:59 PM Referred By: Confirmed By: Phong Choi
[2024-02-06] MEDS: POTASSIUM CHLORIDE / WTR 10 MEQ/100 ML PLCT IV SCH (18:33)
[2024-02-06 19:32] LABS: Appearance Urine Clear (Clear); Bilirubin Urine Negative (Negative); Blood Urine Negative (Negative); Color Urine Yellow; Glucose Urine UA Negative (Negative); Ketones Urine Negative (Negative); Leukocyte Esterase Urine Negative (Negative); Nitrite Urine Negative (Negative); Protein Urine Negative (Negative); Specific Gravity Urine 1.008 (1.000-1.030); Urobilinogen Urine Negative (Negative); pH Urine 7.5 (4.5-7.5)
[2024-02-06] MEDS ORDERED: ALUMINUM/MAGNESIUM SUSP 30 ML UDC PO PRN (20:56)
[2024-02-06] MEDS ORDERED: ONDANSETRON INJ 2 MG/ML 2 ML VIAL IV PRN (20:56)
[2024-02-06] MEDS ORDERED: ACETAMINOPHEN 325 MG TAB PO PRN (20:56)
[2024-02-06] MEDS ORDERED: MAGNESIUM HYDROXIDE SUSP 30 ML UDC PO PRN (20:56)
[2024-02-06] MEDS ORDERED: POLYETHYLENE (MIRALAX) 17 GM PACK PO PRN (20:56)
[2024-02-06] MEDS ORDERED: NON-FORMULARY MEDICATION (Budesonide-Glycopyr-Formoterol [Breztri Aerosphere] 160-9-4.8 mc INH SCH (21:00)
[2024-02-06] MEDS ORDERED: methylPREDNISolone 1000 MG/16 ML IV SCH (21:00)
[2024-02-06] MEDS: ALBUTEROL 0.083% NEBU SOLN 3 ML VIAL INH SCH (21:12)
[2024-02-06] MEDS ORDERED: ALBUTEROL 0.083% NEBU SOLN 3 ML VIAL INH PRN (21:30)
[2024-02-06] MEDS: POTASSIUM CHLORIDE CRTAB 20 MEQ TABCR PO STA (21:56)
[2024-02-06] MEDS: SOTALOL HCL 80 MG TAB PO SCH (21:58)
[2024-02-06] MEDS: ATORVASTATIN 40 MG TAB PO SCH (22:00)
[2024-02-06] MEDS: AZELASTINE HCL 0.1% NASAL 200 SPRAYS/27,400 MCG BTL SCH (22:01)
[2024-02-06] MEDS: methylPREDNISolone 40 MG in SYRINGE 0 ML IV SCH (22:02)
[2024-02-06] MEDS: DOXYCYCLINE HYCLATE 100 MG in DEXTROSE 5% MINI-B 100 ML IV SCH (22:02)
--- OUTSIDE RECORDS SUMMARY | 2024-02-06 23:59 | External Medical Summary | Summary of Care ---
Author Name Unknown Organization [facility] Address [address] [place] [address] Phone [phone] Care Team Providers Care Cvor Nurse Name Role Phone Khoa Hui MD Primary Care Provider + Reason for Visit * Reason Onset Date Comments Test Results 01/24/2024 PET Encounter Details Date Type Department Care Team (Late st Contact Info) Description 01/24/2024 Telephone Pulmonary Medicine, [facility] [address] [facility] [place] [address] Segundo Clarke MD [address] [place] [facility] [place] [address] Test Results (PET) Allergies Active Allergy Reactions Criticality Noted Date Comments Marlo Inhibitors Cough 02/23/2009 Valsartan Edema face/lips/tongue High 05/17/2012 Dog Dander Other (Please comment) High 06/11/2015 Congestion, SOB Influenza Vac Split Quad Other (Please comment) 03/15/2012 Sinus pressure, drainage after flu shot on 2 occasions Levofloxacin 10/07/2013 Itching; hives on trunk and lower extremities Nickel Rash 05/20/2008 documented as of this encounter (statuses as of 01/24/2024) Medications Medication Sig Dispensed Refills Start Date End Date Status Aspirin EC 81 MG Oral Tablet Delayed Release Take 1 Tablet by mouth in the morning. 01/21/2022 Active ProAir HFA 108 (90 Base) MCG/ACT Inhalation Aerosol SolutionIndications:C OPD, group D, by GOLD 2017 classification ([facility]) Inhale 2 Puffs by mouth every 4 hours as needed for Cough, Shortness of Breath or Wheezing. 54 g 3 01/24/2023 Active Azelastine HCl 0.1 % Nasal Solution (Astelin)Indications: Rhinitis, nonallergic Administer 1 [place] into nostril in the morning and 1 [place] before bedtime. 90 mL 3 04/05/2023 Active Atorvastatin Calcium 40 MG Oral Tablet (Lipitor)Indications: Paroxysmal atrial fibrillation (HCC),Coronary artery disease involving [place] coronary artery of [place] heart without angina pectoris TAKE 1 TABLET IN THE MORNING 90 Tablet 3 05/25/2023 Active Breztri Aerosphere 160-9-4.8 MCG/ACT Inhalation Aerosol (Budeson-Glycopyrrol- Formoterol)Indication s:COPD, group D, by GOLD 2017 classification ([facility]) Inhale 2 Puffs by mouth in the morning and 2 Puffs before bedtime. 32.1 g 3 07/05/2023 Active Isosorbide Mononitrate ER 30 MG Oral Tablet Extended Release 24 Hour (Imdur)Indications:CA D in [place] artery Take 1 Tablet by mouth in the morning. 90 Tablet 3 07/05/2023 Active Nitroglycerin 0.4 MG Sublingual Tablet Sublingual (Nitrostat)Indication s:CAD in [place] artery Place 1 Tablet under the tongue every 5 minutes as needed for Pain, Chest. 25 Tablet 3 07/05/2023 Active Spironolactone 25 MG Oral Tablet (Aldactone)Indication s:HTN, goal below 130/80,Chronic diastolic heart failure (HCC),Localized edema TAKE 1 TABLET IN THE MORNING 90 Tablet 3 09/05/2023 Active Sotalol HCl 80 MG Oral Tablet (Betapace)Indications :Paroxysmal atrial fibrillation (HCC) TAKE 1 TABLET TWICE A DAY 180 Tablet 1 10/03/2023 Active Warfarin Sodium 2.5 MG Oral Tablet (Coumadin)Indications :Paroxysmal atrial fibrillation (HCC) TAKE 1 TABLET DAILY DIRECTED BY ANTICOAG CLINIC 90 Tablet 3 10/12/2023 Active Furosemide 20 MG Oral Tablet (Lasix)Indications:HT N, goal below 130/80,Chronic diastolic heart failure (HCC),Localized edema TAKE 1 TABLET IN THE MORNING 90 Tablet 3 12/05/2023 Active Hospital, Clinic, or Other Facility Administered [...] as of this encounter (statuses as of 01/24/2024) Active Problems Problem Noted Date Diagnosed Date Chronic respiratory failure with hypoxia 024 COPD, group D, by GOLD 2017 classification 05/16 Overview: Per COPD GOLD Classification Bladder mass 01/05/2022 Ureteral lesion, [place], right 01/05/2022 Chronic diastolic heart failure 07/01/2021 Pulmonary hypertension 07/01/2021 Lung nodule 07/01/2021 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 Change to toprol. [...] as of this encounter (statuses as of 01/24/2024) Resolved Problems Problem Noted Date Diagnosed Date Resolved Date Ureteral cancer, right 03/10/202208/24 Localized edema 12/24/2015 04/26/2019 Kidney disease, chronic, [...] as of this encounter (statuses as of 01/24/2024) Immunizations Name Administration Dates Next Due COVID-19 mRNA, LNP-s, No Pre serve, 2-Dose Series (Pfizer) 01/26/2022,03/08/2021,08/20/2020,07/30 Pneumococcal Polysaccharide PPV23 (Pneumovax) 05/13/2009 Seasonal Influenza, Split, I IV3, With Preserve, Inj 03/15/2011,03/09/2010,02/19/2009 TDAP, Age 7 and older, IM (Adacel) 09/14/2011 documented as of this encounter Social [...] money to get more. Never true 02/03/2023 Childcare Answer Date Recorded Do you feel overwhelmed with taking care of a child, family member or friend? No 02/03/2023 Does your family need help f inding childcare? (Household - for ages 0-17 years) Not on file 02/03/2023 Clothing Answer Date Recorded Have you been unable to get clothing when it was really needed? No 02/03/2023 Is your family able to get c lothes or diapers when needed? (Household - for ages 0-17 years) Not on file 02/03/2023 Personal Safety Answer Date Recorded Do you feel unsafe or have concerns for your saf ety? No 02/03/2023 Do you have concerns for you r family's safety? (Household - for ages 0-17 years) Not on file 02/03/2023 Utilities Answer Date Recorded Do you have trouble paying y our heating, water, or electric bill? No 02/03/2023 Is your family able to pay t he heat, water, or electric bill? (Household - for ages 0-17 years) Not on file 02/03/2023 Does your family have access to good internet? (Household - for ages 0-17 years) Not on file 02/03/2023 Employment Status Answer Date Recorded Are you unemployed or without regular income? No 02/03/2023 Does the household have a re gular source of income? (Household - for ages 0-17 years) Not on file 02/03/2023 Social Connections Answer Date Recorded How often do you feel lonely or isolated from th ose around you? Never 02/03/2023 Financial Resource Strain Answer Date R ecorded Do you have any trouble payi ng for your medications, or do you think you might in the future? No 02/03/2023 Does your family have troubl e paying for medicine? (Household - for ages 0-17 years) Not on file 02/03/2023 Transportation Needs Answer Date Record ed READ ONLY Do you have troubl e getting a ride to medical visits or work? Never True 02/03/2023 Does your family have a hard time getting a ride to doctors visits? (Household - for ages 0-17 years) Not on file 02/03/2023 Has lack of transportation k ept you from medical appointments, meetings, work, or from getting things needed for daily living? Check all that apply. (Adult - for ages 18 years and over) Not on file 02/03/2023 Do you (or your family) have trouble finding or paying for a ride (transportation)? (Household - for ages 0-17 years) Not on file 02/03/2023 Housing Stability Answer Date Recorded Do you currently live in a s helter or have no steady place to sleep at night? No 02/03/2023 READ ONLY Do you think you a re at risk of becoming homeless? No 02/03/2023 Does your family worry about paying for your home or becoming homeless? (Household - for ages 0-17 years) Not on file 0 02/03/2023 Are you homeless or worried that you might be in the future? (Adult - for ages 18 years and over) Not on file Are you (or your family) mimi eless or worried that you might be in the future? (Household - for ages 0-17 years) Not on file Food Insecurity Answer Date Recorded Do you need food for this week? No 02/03/2023 Are you able to get enough f ood for your family? (Household - for ages 0-17 years) Not on file 02/03/2023 Does your family need food t his week? (Household - for ages 0-17 years) Not on file 02/03/2023 Do you always have enough fo od for your family? (Household - for ages 0-17 years) Not on file 02/03/2023 Sex and Gender Information Value Date Recorded Sex Assigned at Not on file Gender Identity Not on file Sexual Orientation Not on file Job Start Date Occupation Industry Not on file Not on file Not on file documented as of this encounter Miscellaneous Notes * Telephone Encounter - Cami Giron LPN - 01/24/2024 1:30 PM EDT ----- Message from Segundo Clarke MD sent at 01/24/2024 1:25 PM EDT ----- Regarding: Abnormal PET CT PET CT SKULL BASE TO MID-THIGH FDG - 01/22/2024 HISTORY growing left lung apex lesion, hx smoking, was 8mm now [id number] on 01/03/24 CT at [facility]. suspect lung CA COMPARISON PET-CT 03/01/2022; chest CT from 02/08/2023. Chest: #Hypermetabolic left upper lobe nodule measures up to 1.8 x 2.3 cm, SUV 5.6, (previously measuring 6 x 8 mm on 02/2022). #No metabolically active axillary, hilar, or mediastinal lymphadenopathy. IMPRESSION Enlarged, hypermetabolic left upper lobe nodule measuring up to 2.3 cm is concerning for primary lung malignancy. No hypermetabolic hilar/mediastinal lymphadenopathy identified. Chart note. Results will be discussed with patient at upcoming clinic visit. documented in this encounter Plan of Treatment Upcoming Encounters Date Type Department Care Team (Late st Contact Info) Description 02/06/2024 1:00 PM EDT Anticoagulation Pharmacy, [facility] [place] [address] [place] [address] [place] [address] Pharmacist1, [facility] [address] [place] [address] 02/06/2024 3:00 PM EDT Office Visit Pulmonary Medicine, [facility] [address] [facility] [place] [address] Segundo Clarke MD [address] [place] [address] 02/26/2024 3:30 PM EDT Procedure Only Urology, [facility] [address] [facility] [place] [address] Sánchez Kenny MD [address] [place] [address] 08/30/2024 12:20 PM EDT Office Visit Family Practice [facility] [address] [place] [address] Khoa Hui MD [address] [facility] [place] [address] Health Maintenance Due Date Last Done Comments Alpha-1 Antitrypsin 1963 Pneumococcal Vaccine: 65+ Years (2 of 2 - PCV) 05/13/2010 05/13/2009 Adult Wellness Visit 03/31/2018 03/31/2017 DXA Scan 09/18/2018 09/19/2011, 09/19/2011 Depression Screening 10/26/2019 10/25/2018 *ADVANCE DIRECTIVE NOT ON FILE 07/20/2021 DTaP,Tdap,and Td Vaccines (2 - Td or Tdap) 09/13/2021 09/14/2011 COVID-19 Vaccine ( season) 2023 01/26/2022, 01/26/2022, 03/08/2021, Additional history exists HbA1c 07/25/2023 07/25/2022, 09/0 09/2019, 09/27/2018 Influenza Vaccine (FLU shot) (#1) 2024 03/15/2011, 03/09/2010, 02/19/2009 DISCUSS TOBACCO CESSATION (REFER TO SMARTSET #3291) 02/18/2024 02/17/2023, 03/10/2022, 07/01/2021 GFR 07/12/2024 07/12/2023, 09/03, 09/09/2022, Additional history exists O2 ASSESSMENT COMPLETED IN PAST YEAR FOR COPD 08/24/2024 08/25/2023 Albumin/Creatinine Ratio 07/26/2025 07/26/2022 HPV (Gardasil) Vaccine Aged Out No lo nger eligible based on patient's age to complete this topic Hepatitis B Vaccine Aged Out No longe r eligible based on patient's age to complete this topic MENINGOCOCCAL (MENACTRA/MENVEO) Aged Out No longer eligible based on patient's age to complete this topic Zoster Vaccines Discontinued documented as of this encounter Medical Devices Not on filedocumented as of this encounter Advance Directives * Full Code (Latest Code Status on File) Date Activated Date Inactivated Comments 2022 12:17 PM 2022 6:12 PM This order re flects the patients wishes and were consensually agreed upon. Question Answer Comments Discussion of Advance Directives occurred with: Patient * Full Code Date Activated Date Inactivated Comments 2022 9:53 AM 2022 12:17 PM This order re flects the patients wishes and were consensually agreed upon. Question Answer Comments Discussion of Advance Directives occurred with: Patient Care Teams Cvor Nurse Relationship Specialty Start Date End Date Khoa Hui MD [address] [place] [address] PCP - General Family Medicine 05/19/14 documented as of this encounter
--- OUTSIDE RECORDS SUMMARY | 2024-02-07 05:22 | External Medical Summary | Summary of Care ---
Author Name Unknown Organization [facility] Address [address] [place] [address] Phone [phone] Care Team Providers Care Housekeeping Associate Name Role Phone Khoa Hui MD Primary Care Provider + Reason for Visit * Reason Onset Date Comments Advice 02/06/2024 Encounter Details Date Type Department Care Team (Late st Contact Info) Description 02/06/2024 Telephone Family Practice [facility] [address] [facility] [address] Khoa Hui MD [address] [facility] [address] Advice Allergies Active Allergy Reactions Criticality [...] as of this encounter (statuses as of 02/06/2024) Medications Medication Sig Dispensed Refills Start Date End Date Status Aspirin EC 81 MG Oral Tablet Delayed Release Take 1 Tablet by mouth in the morning. 01/21/2022 Active ProAir HFA 108 (90 Base) MCG/ACT Inhalation Aerosol SolutionIndications:C OPD, group D, by GOLD 2017 classification (HCC) Inhale 2 Puffs by mouth every 4 hours as needed for Cough, Shortness of Breath or Wheezing. 54 g 3 01/24/2023 Active Azelastine HCl 0.1 % Nasal Solution (Astelin)Indications: Rhinitis, nonallergic Administer 1 [place] into nostril in the morning and 1 [place] before bedtime. 90 mL 3 04/05/2023 Active Atorvastatin Calcium 40 MG Oral Tablet (Lipitor)Indications: Paroxysmal atrial fibrillation (HCC),Coronary artery disease involving [place] coronary artery of [place] heart without angina pectoris TAKE 1 TABLET IN THE MORNING 90 Tablet 3 05/25/2023 Active Breztri Aerosphere 160-9-4.8 MCG/ACT Inhalation Aerosol (Budeson-Glycopyrrol- Formoterol)Indication s:COPD, group D, by GOLD 2017 classification ([facility]) Inhale 2 Puffs by mouth in the morning and 2 Puffs before bedtime. 32.1 g 3 07/05/2023 Active Isosorbide Mononitrate ER 30 MG Oral Tablet Extended Release 24 Hour (Imdur)Indications:CA D in [place] artery Take 1 Tablet by mouth in the morning. 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 Change to toprol. [...] as of this encounter (statuses as of 02/06/2024) Resolved Problems Problem Noted Date Diagnosed Date [...] as of this encounter (statuses as of 02/06/2024) Immunizations Name Administration Dates Next Due COVID-19 mRNA, LNP-s, No Pre serve, 2-Dose Series (Pfizer) 01/26/2022,03/08/2021,08/20/2020,07/30 Pneumococcal Polysaccharide PPV23 (Pneumovax) 05/13/2009 Seasonal Influenza, [place] t, (IIV3), with Preserv, (Fluzone) 03/15/2011,03/09/2010,02/19/2009 TDAP, Age 7 and older, IM [...] y our heating, water, or electric bill? (Adult - for ages 18 years and over) Not on file 02/05/2024 Is your family able to pay t he heat, water, or electric bill? (Household - for ages 0-17 years) Not on file 02/05/2024 Does your family have access to good internet? (Household - for ages 0-17 years) Not on file 02/05/2024 Employment Status Answer Date Recorded Are you unemployed or without regular income? No 02/03/2023 Does the household have a re gular source of income? (Household - for ages 0-17 years) Not on file 02/03/2023 Social Connections Answer Date Recorded How often do you feel lonely or isolated from those around you? (Adult - for ages 18 years and over) Not on file 02/05/2024 Financial Resource Strain Answer Date R ecorded [...] encounter Miscellaneous Notes * Telephone Encounter - Jordyn Mackey OSA - 02/06/2024 1:25 PM EDT What is the reason for call? Swelling in both legs, severe pain, swollen for a couple of days but it is worse today What Clinic is the patient trying to reach? [facility] Clinic: [facility] - Call Type: Red Flag- route the telephone encounter as routine to news producer p [phone] Call was routed "routine" to the [facility] nurse triage basket (p [phone]). Please call home phone [phone] documented in this encounter Plan of Treatment Upcoming Encounters Date Type Department Care Team (Late st Contact Info) Description 02/06/2024 2:20 PM EDT Anticoagulation Pharmacy, [facility] [address] [place] [address] Pharmacist1, [facility] [address] [place] [address] 02/06/2024 3:00 PM EDT Office Visit Pulmonary Medicine, [facility] [address] [facility] [place] [id number] Segundo Clarke MD [address] [facility] [place] [address] 08/30/2024 12:20 PM EDT Office Visit Family Practice [facility] [address] [place] [address] Khoa Hui MD [address] [place] [address] Health Maintenance Due Date Last Done Comments Alpha-1 Antitrypsin 1963 Pneumococcal Vaccine: 65+ Years (2 of 2 - PCV) 05/13/2010 05/13/2009 Adult Wellness Visit 03/31/2018 03/31/2017 DXA Scan 09/18/2018 09/19/2011, 09/19/2011 Depression Screening 10/26/2019 10/25/2018 *ADVANCE DIRECTIVE NOT ON FILE 07/20/2021 DTap/Tdap Vaccines (2 - Td or Tdap) 09/13/2021 09/14/2011 HbA1c 07/25/2023 07/25/2022, 09/0 09/2019, 09/27/2018 COVID-19 Vaccine ( season) 2024 01/26/2022, 01/26/2022, 03/08/2021, Additional history exists Influenza Vaccine (FLU shot) (#1) 2024 03/15/2011, [...] Advance Directives occurred with: Patient Care Teams Housekeeping Associate Relationship Specialty Start Date End Date Khoa Hui MD [address] [place] [address] PCP - General Family Medicine 05/19/14 documented as of this encounter
--- OUTSIDE RECORDS SUMMARY | 2024-02-07 05:22 | External Medical Summary | Summary of Care ---
Author Name Unknown Organization [facility] Address [address] [place] [address] Phone [phone] Care Team Providers Care Defect Repairer Glassware Name Role Phone Khoa Hui MD Primary Care Provider + Reason for Visit * Reason Onset Date Comments Advice 02/06/2024 Edema 02/06/2024 Encounter Details Date Type Department Care Team (Late st Contact Info) Description 02/06/2024 Nurse Triage Family [facility] [address] [facility] [place] [address] Khoa Hui MD [address] [facility] [place] [address] Allergies Active Allergy Reactions Criticality Noted Date [...] 2017 classification ([facility]) Inhale 2 Puffs by mouth every 4 hours as needed for Cough, Shortness of Breath or Wheezing. 54 g 3 01/24/2023 Active Azelastine HCl 0.1 % Nasal Solution (Astelin)Indications: Rhinitis, nonallergic Administer 1 [place] into nostril in the morning and 1 [place] before bedtime. 90 mL 3 04/05/2023 Active Atorvastatin Calcium 40 MG Oral Tablet (Lipitor)Indications: Paroxysmal atrial fibrillation (HCC),Coronary artery disease involving [place] coronary artery of [place] heart without angina pectoris TAKE 1 TABLET IN THE MORNING 90 Tablet 3 05/25/2023 Active Breztri Aerosphere 160-9-4.8 MCG/ACT Inhalation Aerosol (Budeson-Glycopyrrol- Formoterol)Indication s:COPD, group D, by GOLD 2017 classification ([facility]) Inhale 2 Puffs by mouth in the morning and 2 Puffs before bedtime. 32.1 g 3 07/05/2023 Active Isosorbide Mononitrate ER 30 MG Oral Tablet Extended Release 24 Hour (Imdur)Indications:CA D in [place] artery Take 1 Tablet by mouth in the morning. 90 Tablet 3 07/05/2023 Active Nitroglycerin 0.4 MG Sublingual Tablet Sublingual (Nitrostat)Indication s:CAD in [place] artery Place 1 Tablet under the tongue [...] GOLD Classification Bladder mass 01/05/2022 Ureteral lesion, [place], right 01/05/2022 Chronic diastolic heart failure 07/01/2021 Pulmonary hypertension 07/01/2021 Lung nodule 07/01/2021 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 10/25/2018 Prediabetes 07/31/2018 Elevated TSH 07/31/2018 CAD in [place] artery 03/20/2015 Venous insufficiency 03/12/2014 Overview: 03/18 --no DVT LLE Paroxysmal atrial fibrillation 02/04/2014 Overview: 01/16-[facility] hosp w/rapid response. Change to toprol. [...] Clinic is the patient trying to reach? [facility]: [facility] - Call Type: Red Flag- route the telephone encounter as routine to rotor casting machine operator p [phone] Call was routed "routine" to the [facility] nurse triage basket (p [phone]). Please call home phone [phone] documented in this encounter Plan of Treatment Upcoming Encounters Date Type Department Care Team (Late st Contact Info) Description 02/06/2024 2:20 PM EDT Anticoagulation Pharmacy, [facility] [place] [address] [place] [address] Pharmacist1, [facility] [address] [place] [address] 08/30/2024 12:20 PM EDT Office Visit Family Practice [facility] [address] [place] [address] Khoa Hui MD [address] [place] [address] Health Maintenance Due Date Last Done Comments Alpha-1 Antitrypsin 1963 Pneumococcal Vaccine: 65+ Years (2 of 2 - PCV) 05/13/2010 05/13/2009 Adult Wellness Visit 03/31/2018 03/31/2017 DXA Scan 09/18/2018 09/19/2011, 09/19/2011 Depression Screening 10/26/2019 10/25/2018 *ADVANCE DIRECTIVE NOT ON FILE 07/20/2021 DTap/Tdap Vaccines (2 - Td or Tdap) 09/13/2021 09/14/2011 HbA1c 07/25/2023 07/25/2022, 09/2019, 09/27/2018 COVID-19 Vaccine ( season) 2024 [...] Advance Directives occurred with: Patient Care Teams Defect Repairer Glassware Relationship Specialty Start Date End Date Khoa Hui MD [address] [place] [address] PCP - General Family Medicine 05/19/14 documented as of this encounter
--- OUTSIDE RECORDS SUMMARY | 2024-02-07 05:22 | External Medical Summary | Summary of Care ---
Author Name Unknown Organization [facility] Address [address] [place] [address] Phone [phone] Care Team Providers Care [employer] Name Role Phone Khoa Hui MD Primary Care Provider + Reason for Visit * Reason Onset Date Comments Advice 02/06/2024 Encounter Details Date Type Department Care Team (Late st Contact Info) Description 02/06/2024 Telephone Family Practice [facility] [address] [facility] [id number] Khoa Hui MD [address] [facility] [address] Advice Allergies [...] Nasal Solution (Astelin)Indications: Rhinitis, nonallergic Administer 1 [place] into nostril in the morning and 1 [place] before bedtime. 90 mL 3 04/05/2023 Active Atorvastatin Calcium 40 MG Oral Tablet (Lipitor)Indications: Paroxysmal atrial fibrillation (HCC),Coronary artery disease involving skagway coronary artery of skagway heart without angina pectoris TAKE 1 TABLET IN THE MORNING 90 Tablet 3 05/25/2023 Active Breztri Aerosphere 160-9-4.8 MCG/ACT Inhalation Aerosol (Budeson-Glycopyrrol- Formoterol)Indication s:COPD, group D, by GOLD 2017 classification ([facility]) Inhale 2 Puffs by mouth in the morning and 2 Puffs before bedtime. 32.1 g 3 07/05/2023 Active Isosorbide Mononitrate ER 30 MG Oral Tablet Extended Release 24 Hour (Imdur)Indications:CA D in skagway artery Take 1 Tablet by mouth in the morning. 90 Tablet 3 07/05/2023 Active Nitroglycerin 0.4 MG Sublingual Tablet Sublingual (Nitrostat)Indication s:CAD in skagway artery Place 1 Tablet under the tongue [...] GOLD Classification Bladder mass 01/05/2022 Ureteral lesion, sk[place], right 01/05/2022 Chronic diastolic heart failure 07/01/2021 Pulmonary hypertension 07/01/2021 Lung nodule 07/01/2021 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 10/25/2018 Prediabetes 07/31/2018 Elevated TSH 07/31/2018 CAD in sk[place] artery 03/20/2015 Venous insufficiency 03/12/2014 Overview: 03/18 --no DVT LLE Paroxysmal atrial fibrillation 02/04/2014 Overview: 01/16-[facility] hosp w/rapid response. Change to toprol. [...] encounter Miscellaneous Notes * Telephone Encounter - María Kramer OSA - 02/06/2024 1:35 PM EDT What is the reason for call? Both legs are swollen, painful, red, and hurts to touch What Clinic is the patient trying to reach? 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 documented in this encounter Plan of Treatment Upcoming Encounters Date Type Department Care Team (Late st Contact Info) Description 02/06/2024 2:20 PM EDT Anticoagulation Pharmacy, [facility] [address] [place] [address] Pharmacist1, [facility] [address] [place] [id number] 08/30/2024 12:20 PM EDT Office Visit Family Practice [facility] [address] [address] Khoa Hui MD [address] [id number] Health Maintenance Due Date Last Done Comments Alpha-1 Antitrypsin 1961 Pneumococcal Vaccine: 65+ Years (2 of 2 - PCV) 05/13/2010 05/13/2009 Adult Wellness Visit 03/31/2018 03/31/2017 DXA Scan 09/18/2018 09/19/2011, 09/19/2011 Depression Screening 10/26/2019 10/25/2018 *ADVANCE DIRECTIVE NOT ON FILE 07/20/2021 DTap/Tdap Vaccines (2 - Td or Tdap) 09/13/2021 09/14/2011 HbA1c 07/25/2023 07/25/2022, 0909/2019, 09/27/2018 COVID-19 Vaccine ( season) 2024 01/26/2022, [...] Advance Directives occurred with: Patient Care Teams [employer]ship Relationship Specialty Start Date End Date Khoa Hui MD [address] [place] [id number] PCP - General Family Medicine 05/19/14 documented as of this encounter
[2024-02-07 06:29] LABS: Base Excess VBG 9.7 mEq/L; HCO3 VBG 37 mmol/L; Oxygen Saturation VBG 74.3 %; PCO2 VBG 63 mmHg (38-50); PO2 VBG 45 mmHg; pH VBG 7.38 (7.36-7.41)
[2024-02-07 06:40] LABS: Hematocrit (blood only) 39.8 % (37.0-47.0); Hemoglobin 13.1 g/dl (12.0-16.0); Mean Corpuscular Hemoglobin 30.5 pg (25.0-34.0); Mean Corpuscular Hgb Conc 32.9 g/dL (32.0-36.0); Mean Corpuscular Volume 92.8 fL (80.0-100.0); Mean Platelet Volume 11.2 fL (9.4-12.4); Platelet Count 185 K/uL (130-400); RDW Coefficient of Variation 14.6 % (11.5-14.5); RDW Standard Deviation 49.7 fL (36.4-46.3); Red Blood Count 4.29 M/uL (4.20-5.40); White Blood Count 8.86 K/ul (4.8-10.8)
[2024-02-07 07:11] LABS: Prothrombin Time 29.6 Seconds (9.0-12.0)
[2024-02-07 07:27] LABS: Albumin Globulin Ratio 1.4 (0.9-2); Albumin Level 3.4 gm/dl (3.4-5.0); BUN Creatinine Ratio 46.8 (10-20); Bilirubin,Total 0.8 mg/dl (0.2-1.0); Calcium 8.2 mg/dl (8.6-10.3); Creatinine Clr Calc Pharmacy 67.7 ml/min; Est GFR (African American) 98.7 ml/min; Est GFR (Non-African American) 85.2 ml/min; Globulin 2.5 gm/dl (2.5-4.0); Magnesium 1.8 mg/dl (1.7-2.4); Potassium 3.9 mmol/L (3.5-5.1); Total Protein 5.9 gm/dl (6.0-8.3)
[2024-02-07 08:33] LABS: Estimated Average Glucose 143 mg/dl; Hemoglobin A1C 6.6 % (4.5-5.6)
[2024-02-07] MEDS: ASPIRIN 81 MG ECTAB PO SCH (09:36)
[2024-02-07] MEDS: FUROSEMIDE 40 MG/4 ML VIAL IV SCH (09:37)
[2024-02-07] MEDS: ISOSORBIDE MONO EXTENDED REL 30 MG TABCR PO SCH (09:37)
[2024-02-07] MEDS: UMECLIDINIUM/VILANTEROL 62.5/25MCG 7 PUFFS/INHALER INH SCH (09:39)
[2024-02-07] MEDS: FLUTICASONE FUROATE 200MCG 14 PUFFS/INHALER INH SCH (09:44)
[2024-02-07] MEDS: POTASSIUM CHLORIDE 20 MEQ/15 ML UDC PO SCH (10:18)
[2024-02-07] MEDS: POTASSIUM CHLORIDE CRTAB 20 MEQ TABCR PO SCH (11:39)
--- NOTE | 2024-02-07 12:10 | Hospitalist Progress Note ---
Date of Service February 07, 2024 Assessment & Plan (1) Acute on chronic respiratory failure: (2) Cor pulmonale: (3) COPD exacerbation: (4) Pulmonary hypertension: (5) Cellulitis of left lower extremity: (6) Paroxysmal atrial fibrillation: (7) Anticoagulated on Coumadin: (8) Prediabetes: (9) Left upper lobe pulmonary nodule: Plan Patient with acute on chronic hypoxic respiratory failure due to acute exacerbation of COPD and decompensated of pulmonary hypertension and cor pulmonale Communication with pulmonary team, recommending continued steroids, nebulizer treatments and antibiotics Antibiotics to cover both pulmonary disease as well as what appears to be a left lower extremity cellulitis Antitussives and mucolytics Titrate oxygen as able Therapies Wound care, patient would definitely benefit from some compressive therapies of the lower extremity for edema management Diuresis as tolerated, monitor left electrolytes and renal function Continue monitor daily INR, dose warfarin based on INR Case management, patient is requesting that she be go home at the time of discharge, anticipate she will need home oxygen and probably home health services 53 minutes spent reviewing records, coordination of care, communication with specialist, communication with medical team, care at bedside Admission and Anticipated Discharge Date Admission Date: February 06, 2024 Subjective Patient feels that her breathing is more or less the same. Lots of morning congestion Physical Exam Physical Exam: Constitutional: Alert, frail HEENT: Mucous membranes moist. Lungs: Extremely decreased breath sounds, poor airflow, prolonged expiratory phase, no wheezes, no rhonchi CV: S1-S2, regular Abdomen: Soft, nontender, nondistended Extremities: Bilateral lower extremity 2+. Left lower extremity has some circumferential redness, warmth, tenderness between the ankle and knee. Right lower extremity has chronic venous stasis dermatitis and ruborous changes from edema, low suspicion for cellulitis in the right leg. Neuro: No focal deficits, generalized weakness Psych: Cooperative, normal mood Results & Data Results & Data Vital Signs (Past 12 Hours) Vital Signs Temp Pulse Pulse Resp BP Pulse Ox O2 Del Method 02/07/24 11:32 36.8 C 60 117/65 98 Nasal Cannula 02/07/24 11:32 60 02/07/24 10:23 Nasal Cannula 02/07/24 07:13 36.4 C L 62 19 126/76 96 Nasal Cannula 02/07/24 02:15 36.4 C L 60 18 122/68 100 Nasal Cannula O2 Flow Rate 02/07/24 11:32 2 02/07/24 11:32 02/07/24 10:23 3 02/07/24 07:13 3 02/07/24 02:15 Diagnostic Findings Reviewed imaging, laboratory and diagnostic studies. Pertinent findings as below. CBC stable INR 3.0 BMP reviewed, CO2 37 Hemoglobin A1c 6.6% Respiratory panel negative Reviewed echocardiogram from June, moderate pulmonary hypertension, ejection fraction 65 to 70% (1) Acute on chronic respiratory failure Respiratory failure complication: hypoxia and hypercapnia Qualified Code(s): J96.21 - Acute and chronic respiratory failure with hypoxia; J96.22 - Acute and chronic respiratory failure with hypercapnia
[2024-02-07] MEDS ORDERED: BENZONATATE 100 MG CAPSULE PO PRN (12:14)
--- NOTE | 2024-02-07 12:19 | Pulmonary Consultation ---
Date of Consultation February 07, 2024 Assessment & Plan (1) Left upper lobe pulmonary nodule: (2) COPD exacerbation: (3) Cor pulmonale: Plan Impression: 78-year-old female with advanced COPD (PFTs not available in our system), cor pulmonale, and suspicious upper lobe pulmonary nodule. Recommendations: 1. Pulmonary nodule: The patient was apparently advised in the outpatient setting that this may represent a malignancy. Biopsy has not been scheduled. She has not been seen by pulmonary in the outpatient setting. She was worried about having to travel to [place] to get this biopsied. I advised her that we could pursue the biopsy here with robotic navigational bronchoscopy. Discussed what that would entail including its risks of pneumothorax. The patient is not sure that she wants to proceed with any evaluation for this nodule and is not sure that she would undergo any therapy. Regardless, this is an outpatient issue and can be addressed further in the outpatient setting. She is already set up to meet with [facility] pulmonary. I did provide her my contact in formation and advised her that if she elects to pursue a biopsy and wants to do it here, I would be happy to try and facilitate that with its attendant risks. Would need to review her outpatient PFTs and PET scan. 2. COPD exacerbation: Appears clinically improved. I see no evidence of pneumonia so can transition Solu-Medrol to p.o. prednisone and discontinue parenteral doxycycline and Rocephin and replace with oral doxycycline for 5 days. Continue Anoro and as needed albuterol. 3. Secondary pulmonary hypertension: Echocardiogram performed June of this year in our system showed an EF of 65-70 with mild MR, grade 1 diastolic dysfunction and PA systolic pressure estimated around 51 with normal right ventricular size, function, and morphology. Suspect the etiology of her elevated pulmonary pressures is group 2 and 3. The patient would benefit from continued afterload reduction with blood pressure control as well as diuresis. No indication for right heart catheterization or pulmonary vasodilators. Chronic hypoxemic pulmonary vasoconstriction may be contributing as well. 4. Chronic hypoxemic hypercarbic respiratory failure: Would need to correlate outpatient PFTs. Could consider noninvasive positive pressure ventilation in the outpatient setting at night however the patient may require sleep study or at least correlation with her PFTs. This does not need to be done as an inpatient. She may need supplemental oxygen at discharge. Recommend formal two-step. 5. Smoking cessation recommended to the patient. Patient states that she has a family history of COPD and non-smokers and is not convinced that her lung disease is related to tobacco abuse. Anticipate the patient should respond favorably in the short-term. Again she has follow-up scheduled with [facility] pulmonary. I would be happy to see her in the pulmonary clinic here if she wants to have a biopsy performed here if she is going to pursue an aggressive approach of the nodule. The above recommendations and plan were discussed with the patient as well as with the admitting service. History of Present Illness Attending Physician: Thomas Moulton, History of Present Illness Asked by hospitalist to assist in evaluation management of this patient with COPD, shortness of breath, and abnormal CT scan, and chronic hypercarbic respiratory failure. History is obtained from discussion with the patient as well as review the electronic medical record. The patient is an 78-year-old female with an over [id number] history of tobacco abuse who continues to smoke a few cigarettes a day. Her records are largely maintained through the [facility] system and we have limited access at this point time. Reportedly she has had PFTs performed in the past. Studies are not available to review. She does have Breztri and albuterol to use at home which she believes are beneficial. She apparently has had a pulmonary nodule which has been identified in the outpatient setting. This was evaluated with a PET scan which reportedly showed uptake although I do not have the images available to review. The patient was advised that a biopsy would necessitate her traveling to [place] which she was unwilling to do. She was scheduled to meet with pulmonary yesterday but was admitted to the hospital with shortness of breath. CT scan performed here confirmed the presence of the apical pulmonary nodule as well as significant centrilobular emphysematous changes. She has been placed on oxygen which she does not normally use at home. She has been treated for a COPD exacerbation. She was noted to have bilateral lower extremity edema and does have a history of secondary pulmonary hypertension. She is feeling better currently. The patient denies any constitutional symptoms such as unintentional weight loss, fevers, chills, or night sweats. She denies palpitations, chest pressure, syncope, or presyncope. Allergies Allergy/AdvReac Type Severity Reaction Status Date / Time dog dander Allergy Severe congestion, Verified 02/06/24 16:24 SOB valsartan Allergy Severe Edema Verified 02/06/24 16:24 face/lips/tongue. levofloxacin [From Levaquin] Allergy Intermediate ITCHY Verified 02/06/24 16:24 HIVES ON TRUNK AND LEGS nickel Allergy Mild Rash. Verified 02/06/24 16:24 NAI Inhibitors AdvReac Intermediate Cough. Verified 02/06/24 16:24 influenza virus vaccine ts AdvReac Intermediate SINUS Verified 02/06/24 16:24 [id number] (36 mos,up) PRESSURE/DRAINAGE [From Fluarix] Home Medications Medication Instructions Recorded Confirmed Type furosemide 20 mg tablet 20 mg PO QAM 10/08/18 02/06/24 History nitroglycerin 0.4 mg sublingual 0.4 mg sublingual DIRECTED PRN 04/19/19 02/06/24 History tablet Chest Pain sotalol 80 mg tablet 80 mg PO BID 04/19/19 02/06/24 History atorvastatin 40 mg tablet 40 mg PO HS 09/09/21 02/06/24 History aspirin 81 mg tablet,delayed 81 mg PO QAM 01/17/23 02/06/24 History release azelastine 137 mcg (0.1 %) nasal 1 spray intranasal [facility] 01/17/23 02/06/24 History spray budesonide 160 mcg-glycopyr 9 2 inh inhalation [facility] 01/17/23 02/06/24 History mcg-formot 4.8 mcg/actuation HFA inhaler (Breztri Aerosphere) spironolactone 25 mg tablet 25 mg PO QAM 01/17/23 02/06/24 History warfarin 2.5 mg tablet 2.5 mg PO QPM 01/17/23 02/06/24 History albuterol sulfate 2.5 mg/3 mL 2.5 mg inhalation DIRECTED PRN 06/26/23 02/06/24 History (0.083 %) solution for nebulization Shortness Of Breath Or Wheezing isosorbide mononitrate 30 mg 30 mg PO QAM #30 tabs 06/27/23 02/06/24 Rx tablet,extended release 24 hr albuterol sulfate 90 mcg/actuation 2 inh inhalation Q4H PRN Shortness 01/02/24 02/06/24 History aerosol inhaler Of Breath Or Wheezing sucralfate 100 mg/mL oral 10 ml PO QID #420 mL 01/06/24 02/06/24 Rx suspension (Carafate) Patient History Medical History (Updated 02/07/24 @ 12:08 by Thomas Moulton DO) Paroxysmal atrial fibrillation Surgical History H/O: hysterectomy S/P appendectomy Family History Other Colon cancer Social History Smoking Status: Light tobacco smoker Tobacco Type: Cigarettes Cigarettes Per Day: occasional smoker- somedays pt does not smoke, other days smokes 3-5; Second Hand Exposure: No; Do You Dip or Chew Tobacco: No; Tobacco Cessation Education Requested by Patient: No Hx Alcohol Use: Yes Alcohol type: wine Alcohol Intake Frequency Comment: 1-2 glasses of wine 3-5 days per week Hx Substance Use: No Preferred Language: French Communication Ability: Effective Expert Witness Required: No Beliefs That Will Affect Care: None Current Living Situation: Alone Other Information That Helps Us Care for You: No Feels Safe at Home: Yes Safety Concerns: Feels Safe At This Time Assistive Devices: None Review of Systems Review of Systems: Please refer to admission H&P. No additions or deletions Physical Exam Constitutional: + frail appearing; no acute distress Neck: trachea midline, no thyromegaly Respiratory: no respiratory distress, no labored breathing, no cough and not tachypneic Auscultation: + diminished lung sounds; no wheezes Cardiovascular: Rate/Rhythm: regular rate Heart Sounds: normal S1, normal S2 and + murmur Extremities: + edema Gastrointestinal (Abdomen): normal bowel sounds, soft, nontender, no hepatosplenomegaly Musculoskeletal: Extremities: extremities normal to inspection Skin: no rashes, warm and dry Neurologic: Nonfocal exam Lymphatic: no cervical lymphadenopathy Results & Data Results & Data Vital Signs (Past 12 Hours) Vital Signs Temp Pulse Pulse Resp BP Pulse Ox O2 Del Method 02/07/24 11:32 36.8 C 60 117/65 98 Nasal Cannula 02/07/24 11:32 60 02/07/24 10:23 Nasal Cannula 02/07/24 07:13 36.4 C L 62 19 126/76 96 Nasal Cannula 02/07/24 02:15 36.4 C L 60 18 122/68 100 Nasal Cannula O2 Flow Rate 02/07/24 11:32 2 02/07/24 11:32 02/07/24 10:23 3 02/07/24 07:13 3 02/07/24 02:15 Critical Care Results & Data Vital Signs (Past 12 Hours) Vital Signs Temp Pulse Pulse Resp BP Pulse Ox O2 Del Method 02/07/24 11:32 36.8 C 60 117/65 98 Nasal Cannula 02/07/24 11:32 60 02/07/24 10:23 Nasal Cannula 02/07/24 07:13 36.4 C L 62 19 126/76 96 Nasal Cannula 02/07/24 02:15 36.4 C L 60 18 122/68 100 Nasal Cannula O2 Flow Rate 02/07/24 11:32 2 02/07/24 11:32 02/07/24 10:23 3 02/07/24 07:13 3 02/07/24 02:15 Lab & Micro Results (Past 24 Hours) RBC 4.29 M/uL (4.20-5.40) 02/07/24 WBC 8.86 K/ul (4.8-10.8) 02/07/24 Hgb 13.1 g/dl (12.0-16.0) 02/07/24 Hct 39.8 % (37.0-47.0) 02/07/24 MCV 92.8 fL (80.0-100.0) 02/07/24 MCH 30.5 pg (25.0-34.0) 02/07/24 MCHC 32.9 g/dL (32.0-36.0) 02/07/24 RDW Standard Deviation 49.7 fL (36.4-46.3) H 02/07/24 RDW Coefficient of Variation 14.6 % (11.5-14.5) H 02/07/24 Plt Count 185 K/uL (130-400) 02/07/24 MPV 11.2 fL (9.4-12.4) 02/07/24 Neutrophils (%) (Auto) 73.0 % 02/06/24 Lymphocytes (%) (Auto) 16.1 % 02/06/24 Monocytes # (Auto) 0.89 K/uL (0.11-0.59) H 02/06/24 Eosinophils # (Auto) 0.09 K/uL (0.00-0.50) 02/06/24 Immature Granulocyte % (Auto) 0.2 % 02/06/24 Neutrophils # (Auto) 6.82 K/uL (1.40-6.50) H 02/06/24 Lymphocytes # (Auto) 1.51 K/uL (1.20-3.40) 02/06/24 Monocytes # (Auto) 0.89 K/uL (0.11-0.59) H 02/06/24 Eosinophils # (Auto) 0.09 K/uL (0.00-0.50) 02/06/24 Basophils # (Auto) 0.02 K/uL (0.00-0.20) 02/06/24 Immature Granulocyte # (Auto) 0.02 K/uL (0.01-0.20) 4 Na 138 mmol/L (136-145) 02/07/24 K 3.9 mmol/L (3.5-5.1) 02/07/24 Cl 98 mmol/L (98-107) 02/07/24 CO2 37 mmol/L (21-32) H 02/07/24 Anion Gap 3 (3-11) 02/07/24 BUN 29 mg/dl (6-23) H 02/07/24 Creatinine 0.62 mg/dl (0.6-1.2) 02/07/24 Estimated GFR ( Amer) 98.7 ml/min 02/07/24 Estimated GFR (Non-Af Amer) 85.2 ml/min 02/07/24 BUN/Creatinine Ratio 46.8 (10-20) H 02/07/24 Glu 143 mg/dl (70-99(Fasting)) H 02/07/24 Ca 8.2 mg/dl (8.6-10.3) L 02/07/24 Phosphorus Level 4.0 mg/dl (2.5-4.9) 02/07/24 Total Bilirubin 0.8 mg/dl (0.2-1.0) 02/07/24 AST 14 U/L (13-39) 02/07/24 ALT 15 U/L (7-52) 02/07/24 Alkaline Phosphatase 68 U/L (34-104) 02/07/24 TP 5.9 gm/dl (6.0-8.3) L 02/07/24 Albumin 3.4 gm/dl (3.4-5.0) 02/07/24 Globulin 2.5 gm/dl (2.5-4.0) 02/07/24 Albumin/Globulin Ratio 1.4 (0.9-2) 02/07/24 Mg 1.8 mg/dl (1.7-2.4) 02/07/24 06:06 Calcium Level 8.2 mg/dl (8.6-10.3) L 02/07/24 06:06 Prothromb Time International Ratio 3.0 (0.9-1.1) H 02/07/24 06 :06 Venous Blood pH 7.38 (7.36-7.41) 02/07/24 06:06 Venous Blood Partial Pressure CO2 63 mmHg (38-50) H 02/07/24 06 :06 Venous Blood Partial Pressure O2 45 mmHg 02/07/24 06:06 Venous Blood HCO3 37 mmol/L 02/07/24 06:06 Venous Blood Base Excess 9.7 mEq/L 02/07/24 06:06 Venous Blood Oxygen Saturation 74.3 % 02/07/24 06:06 Diagnostic Findings (Past 24 Hours) Chest X-Ray 02/06/24 14:39 XR chest 1V portable CLINICAL HISTORY: Dyspnea. COMPARISON STUDY: Chest radiograph and chest CT January 05, 2024. FINDINGS: There is no pneumothorax or pleural effusion. There is no consolidation to suggest pneumonia. No evidence for pulmonary edema. Emphysema is present. Cardiomediastinal silhouette is normal. An irregular left upper lobe nodule is again noted. IMPRESSION: 1. No acute cardiopulmonary findings. 2. Redemonstration of a suspicious left upper lobe lesion. 3. Emphysema. ACT 112: Positive. There are findings on this exam that require communication between the performing entity and the patient following Patient Test Result Information Act [place] Act 112) guidelines. Electronically signed by: Félix Edwards M.D. 02/06/2024 3:39 PM Venous Doppler Study 02/06/24 15:08 BILATERAL LOWER EXTREMITY VENOUS DOPPLER CLINICAL HISTORY: Bilateral lower extremity swelling. COMPARISON STUDY: No previous studies for comparison. TECHNIQUE: Sonography of the deep venous system of the bilateral lower extremities was performed. Compression and augmentation were evaluated. FINDINGS: The bilateral common femoral, superficial femoral and popliteal veins were compressible. Augmentation was normal. Flow was shown within the deep calf vessels. IMPRESSION: No evidence of deep venous thrombus within the bilateral lower extremities. ACT 112: Negative or not required by law. Electronically signed by: Félix Edwards M.D. 02/06/2024 4:11 PM I & O Totals 24 Hours 02/06/24 02/07/24 02/08/24 06:59 06:59 06:59 Intake Total 250 / 250 Output Total 50 / 50 Balance 200 / 200 Cumulative 02/06/24 14:19 thru 02/07/24 05:50 Intake Total 250 Output Total 50 Balance 200 RT Ventilator Mngmt (Last Documented) Ventilator Ordered Settings Respiratory Rate 19 02/07/24 07:13 Ventilator - PT Measurements Respiratory Rate 19 PG Care Time/CCT Total # of Minutes Spent Total Time Spent with Patient: Total time spent is greater than 50% in coordination of care (as documented) at patient's floor/unit and/or counseling patient: Coding Level of Care Code 27805 INT INP/OBS CARE MIN Diagnoses Left upper lobe pulmonary nodule R91.1 COPD exacerbation J44.1 Cor pulmonale I27.81
[2024-02-07] MEDS ORDERED: cefTRIAXone SODIUM 2,000 MG/50 ML BAG IV SCH (15:00)
[2024-02-07] MEDS: WARFARIN SOD 2 MG TAB PO SCH (16:41)
[2024-02-07] MEDS ORDERED: DOXYCYCLINE HYCLATE 100 MG CAP PO SCH (21:00)
[2024-02-07] MEDS: DOXYCYCLINE HYCLATE 100 MG CAP PO SCH (21:13)
[2024-02-07] MEDS: guaiFENesin 600 MG TABCR PO SCH (21:14)
[2024-02-08 07:45] LABS: Calcium 8.3 mg/dl (8.6-10.3); Potassium 4.2 mmol/L (3.5-5.1)
[2024-02-08 07:49] LABS: INR 2.8 (0.9-1.1); Prothrombin Time 27.7 Seconds (9.0-12.0)
[2024-02-08 07:50] LABS: BUN Creatinine Ratio 48.3 (10-20); Creatinine Clr Calc Pharmacy 72.4 ml/min; Est GFR (African American) 100.9 ml/min; Est GFR (Non-African American) 87.1 ml/min
--- NOTE | 2024-02-08 08:04 | Pulmonology Progress Note ---
Date of Service February 08, 2024 Assessment & Plan (1) Left upper lobe pulmonary nodule: (2) COPD exacerbation: (3) Cor pulmonale: Plan Impression: 78-year-old female with advanced COPD (PFTs not available in our system), cor pulmonale, and suspicious upper lobe pulmonary nodule. She is improving with treatment for diastolic dysfunction/heart failure as well as acute exacerbation of COPD Recommendations: 1. Pulmonary nodule: Patient discussion with family. She would like to have her initial opinion conducted with [facility] and then if she elects to pursue a biopsy which she is leaning against, she may contact us. I think that totally reasonable. Will defer additional evaluation management to her [facility] team. 2. COPD exacerbation: Appears clinically improved. Complete 5-day course of prednisone and doxycycline. Continue Anoro and as needed albuterol. 3. Secondary pulmonary hypertension: Echocardiogram with mild pulmonary hypertension, likely secondary to diastolic dysfunction, valvular abnormalities, and potential pulmonary hypoxic vasoconstriction. No indication for vasodilators or additional evaluation other than blood pressure control and diuresis. Intake and output not accurately tracked as only 50 mL of urine is reported. Recommending continued Lasix 4. Chronic hypoxemic hypercarbic respiratory failure: Would need to correlate outpatient PFTs. Could consider noninvasive positive pressure ventilation in the outpatient setting at night however the patient may require sleep study or at least correlation with her PFTs. This does not need to be done as an inpatient. She may need supplemental oxygen at discharge. Recommend formal two-step. 5. Smoking cessation recommended to the patient. Patient states that she has a family history of COPD and non-smokers and is not convinced that her lung disease is related to tobacco abuse. Anticipate the patient should respond favorably in the short-term. Again she has follow-up scheduled with [facility] pulmonary. I would be happy to see her in the pulmonary clinic here if she wants to have a biopsy performed here if she is going to pursue an aggressive approach of the nodule. The above recommendations and plan were discussed with the patient. She appears to be improving from a respiratory standpoint and is likely approaching discharge. Pulmonary will sign off. Feel free to contact us with questions or concerns Admission and Anticipated Discharge Date Admission Date: February 06, 2024 Subjective Patient seen and examined. EMR reviewed. The patient feels that she is improving from a respiratory standpoint. She states she was up to the chair yesterday. She is not having any issues with ambulation. She had her echocardiogram repeated. She is not having any fevers chills night sweats or other constitutional symptoms. She is tolerating oxygen well and has been weaned down to 2 L. Review of Systems 2 Review of Systems: All systems reviewed & are unremarkable except as noted in Subjective Physical Exam 2 Constitutional: + frail appearing; no acute distress Neck: trachea midline, no thyromegaly Respiratory: no respiratory distress, no labored breathing, no cough and not tachypneic Auscultation: + diminished lung sounds; no wheezes Cardiovascular: Rate/Rhythm: regular rate Heart Sounds: normal S1, normal S2 and + murmur Extremities: + edema Gastrointestinal (Abdomen): normal bowel sounds, soft, nontender, no hepatosplenomegaly Musculoskeletal: Extremities: extremities normal to inspection Skin: no rashes, warm and dry Lymphatic: no cervical lymphadenopathy Results & Data Results & Data Vital Signs (Past 12 Hours) Vital Signs Temp Pulse Resp BP Pulse Ox Pulse Ox O2 Del Method 02/08/24 07:33 36.7 C 59 L 17 105/48 L 93 Nasal Cannula 02/08/24 03:27 36.7 C 57 L 16 109/66 95 Nasal Cannula 02/07/24 22:51 36.5 C 55 L 18 112/61 98 Nasal Cannula 02/07/24 20:56 93 02/07/24 20:16 Nasal Cannula O2 Del Method O2 Flow Rate O2 Flow Rate 02/08/24 07:33 2 02/08/24 03:27 2 02/07/24 22:51 02/07/24 20:56 Nasal Cannula 3 02/07/24 20:16 3 Laboratory Results 02/07/24 06:06 02/08/24 07:02 Diagnostic Findings Echocardiogram performed yesterday showed an EF of 60 to 65% with concentric LVH, mild MR, and moderate TR with a estimated PA pressure of 42. The right ventricle showed normal size and systolic function. Grade 2 diastolic dysfunction was noted. PG Care Time/CCT Total # of Minutes Spent Total Time Spent with Patient: Total time spent is greater than 50% in coordination of care (as documented) at patient's floor/unit and/or counseling patient: Coding Level of Care Code 76516 SUB INP/OBS CARE 2/35MIN Diagnoses Left upper lobe pulmonary nodule R91.1 COPD exacerbation J44.1 Cor pulmonale I27.81
[2024-02-08] MEDS ORDERED: predniSONE 20 MG TAB PO SCH (09:00)
--- NOTE | 2024-02-08 09:34 | Hospitalist Progress Note ---
Date of Service February 08, 2024 Assessment & Plan (1) Acute on chronic respiratory failure: (2) Cor pulmonale: (3) COPD exacerbation: (4) Pulmonary hypertension: (5) Cellulitis of left lower extremity: (6) Paroxysmal atrial fibrillation: (7) Anticoagulated on Coumadin: (8) Prediabetes: (9) Left upper lobe pulmonary nodule: Plan Patient with acute exacerbation of COPD/cor pulmonale, seems to be responding to current interventions Transition to oral Lasix Continue current prednisone dose Continue current warfarin dosing Discussed with the patient most likely need for home oxygen. She is very reluctant to even consider this option. Will do nocturnal pulse oximetry and ambulatory pulse oximetry to determine qualification for home oxygen Case management to assist with possible home oxygen and home health Wound care pending for coordinating compressive therapy lower extremities to help with her chronic edema Continue doxycycline for COPD exacerbation and left lower extremity cellulitis Admission and Anticipated Discharge Date Admission Date: February 06, 2024 Subjective Patient reports she is feeling a bit better today. Seems to be able to clear her mucus a little easier Physical Exam Physical Exam: Constitutional: Alert, frail, cachectic in appearance HEENT: Mucous membranes moist. Lungs: Decreased breath sounds bilaterally, prolonged expiratory phase, poor airflow, no wheezes CV: S1-S2, regular Abdomen: Soft, nontender, nondistended Extremities: Edema lower extremity improved, redness left lower extremity improved, warmth improved, tenderness improved Neuro: No focal deficits Psych: Cooperative, normal mood Results & Data Results & Data Vital Signs (Past 12 Hours) Vital Signs Temp Pulse Resp BP Pulse Ox O2 Del Method O2 Flow Rate 02/08/24 07:33 36.7 C 59 L 17 105/48 L 93 Nasal Cannula 2 02/08/24 03:27 36.7 C 57 L 16 109/66 95 Nasal Cannula 2 02/07/24 22:51 36.5 C 55 L 18 112/61 98 Nasal Cannula Diagnostic Findings Reviewed imaging, laboratory and diagnostic studies. Pertinent findings as below. BMP reviewed stable INR 2.8 (1) Acute on chronic respiratory failure Respiratory failure complication: hypoxia and hypercapnia Qualified Code(s): J96.21 - Acute and chronic respiratory failure with hypoxia; J96.22 - Acute and chronic respiratory failure with hypercapnia
[2024-02-08] MEDS: predniSONE 20 MG TAB PO SCH (10:25)
[2024-02-09 07:04] LABS: BUN Creatinine Ratio 38.1 (10-20); Calcium 8.1 mg/dl (8.6-10.3); Creatinine Clr Calc Pharmacy 66.7 ml/min; Est GFR (African American) 98.2 ml/min; Est GFR (Non-African American) 84.7 ml/min; Potassium 4.1 mmol/L (3.5-5.1)
[2024-02-09 07:22] LABS: INR 2.6 (0.9-1.1); Prothrombin Time 26.3 Seconds (9.0-12.0)
[2024-02-09] MEDS: FUROSEMIDE 40 MG TAB PO SCH (09:28)
--- NOTE | 2024-02-09 12:00 | Discharge Summary ---
Date of Service February 09, 2024 Admission HPI Per Admitting Provider Lila Rolle is an 78y/o F with PMHx of dyslipidemia, prediabetes, HTN, COPD, chronic respiratory failure with hypoxia [not currently on home oxygen therapy], SUSHIL lung nodule, paroxysmal atrial fibrillation [on warfarin], chronic diastolic heart failure, pulmonary hypertension, CAD s/p RCA stent placement (2019), tobacco use disorder, elevated TSH and other problems listed below who presented to the ED via EMS for evaluation of worsening SOB/dyspnea and BLE edema. History obtained from patient, daughter at bedside and associated chart review. Patient with worsening SOB and BLE edema over the past couple of days. Has been taking her oral Lasix as prescribed and tries to stick to a low sodium diet. She does live alone, however her daughter visits her regularly. Patient does not wear supplemental O2 at home. She was advised to start using supplemental O2 by her PCP years ago according to her daughter, but the patient has been adamant against using it. She is currently on 3L via NC in the ED and sating ~92-94%. Reports her albuterol inhaler have not been working well at home. She has not noticed a weight gain, however she has not been weighing herself regularly. Denies any urinary or bowel habit changes. No chest pain. Has been experiencing some redness of her LLE for the past week. No fevers or chills. She has however noted some serous fluid drainage from her RLE. Of note, patient reports she cannot tolerate DuoNeb treatments. Reports DuoNebs cause her to revert back into A-fib. Most recent echo was done on 06/27/2023 and showed the following: moderate concentric LV hypertrophy, no regional wall motion abnormalities, normal LV systolic function, LVEF=65-70%, mild mitral regurgitation, mild tricuspid regurgitation, moderately elevated pulmonary artery systolic pressure of 51 mmHg and grade 1 diastolic dysfunction. Admission Exam Per Admitting Provider See H&P Principal Diagnosis acute on chronic respiratory failure due to Exacerbation of COPD/cor pulmonale Discharge Exam Constitutional: Alert, frail HEENT: Mucous membranes moist. Lungs: Decreased breath sounds, prolonged expiratory phase, poor airflow, no wheezes CV: S1-S2, regular Abdomen: Soft, nontender, nondistended Extremities: Edema significantly decreased, skin wrinkled, redness and tenderness and warmth of left lower extremity significantly improved. Does have a nodular lesion around the patella on the left knee that is tender, suspect contusion. Neuro: No focal deficits Psych: Cooperative, normal mood Discharge Data Allergies Allergy/AdvReac Type Severity Reaction Status Date / Time dog dander Allergy Severe congestion, Verified 02/06/24 16:24 SOB valsartan Allergy Severe Edema Verified 02/06/24 16:24 face/lips/tongue. levofloxacin [From Levaquin] Allergy Intermediate ITCHY Verified 02/06/24 16:24 HIVES ON TRUNK AND LEGS nickel Allergy Mild Rash. Verified 02/06/24 16:24 NAI Inhibitors AdvReac Intermediate Cough. Verified 02/06/24 16:24 influenza virus vaccine ts AdvReac Intermediate SINUS Verified 02/06/24 16:24 [id number] (36 mos,up) PRESSURE/DRAINAGE [From Fluarix] Consultations 02/06/24 16:38 ED Decision to Admit Stat 02/06/24 18:00 Consult Pulmonology Routine Procedures Performed Reviewed imaging, laboratory and diagnostic studies. Pertinent findings as below. INR 2.6 Creatinine 0.63 Ultrasound lower extremity negative for DVT Ordered Studies 02/06/24 15:08 US venous doppler [facility] Stat Hospital Course (1) Acute on chronic respiratory failure: (2) Cor pulmonale: (3) COPD exacerbation: (4) Pulmonary hypertension: (5) Cellulitis of left lower extremity: (6) Paroxysmal atrial fibrillation: (7) Anticoagulated on Coumadin: (8) Prediabetes: (9) Left upper lobe pulmonary nodule: Plan Patient 78-year-old female presented to the emergency room with acute onset of shortness of breath. Noted to be hypoxic in the emergency room. Known COPD and cor pulmonale. Patient was admitted to the hospital and supported with oxygen. She is offered nebulizer treatments as well as some steroids. She is also diuresed with IV Lasix. Patient has a known lung nodule this does enhance on PET scanning. She has coordinated outpatient follow-up and plans to evaluate this mass through her physical scientist. Pulmonary was consulted here in the hospital. They agreed with diuresis and oxygen support. Echocardiogram was updated which showed normal ejection fraction, moderate pulmonary hypertension. Patient was also treated with antibiotics for lower extremity cellulitis. This improved throughout her hospital stay. Patient responded to diuresis and oxygen support. She was transition to higher dose of oral Lasix. However, patient could not be titrated off oxygen. Nocturnal pulse oximetry into the step ambulatory pulse oximetry confirm that she met criteria for home oxygen. This was coordinated for her. She was also seen by wound care while here in the hospital they recommended keeping some wounds open to the air and follow-up outpatient. On the day of discharge she was agreeable at this time the wearing oxygen at home. Outpatient pulmonary office visit has been rescheduled. Will coordinate home health care follow-up. She will get her INR checked per usual process on Monday and follow-up with her PCP as well. Note. Patient did seem somewhat reluctant to pursue further treatments of the lung nodule, also had mention that she may or may not wear the oxygen at home. Suspect she will be a high risk for readmission. Home Health Attestation I certify that this patient is under my care and that I, or a physicians marketing assistant retail division working with me, had a face to-face encounter that meets the home health [id number] encounter requirements with this patient. The encounter with the patient was in whole, or in part, for the following medical condition, which is the primary reason for home health care (list medical condition): I certify that, based on my findings, the following services are medically necessary home health services: My clinical findings support the need for the above services because: Further, I certify that my clinical findings support that this patient is homebound (i.e. absences from home require considerable and taxing effort and are for medical reasons or [facility] or infrequently or of short duration when for other reasons) because: Certification for Home Health Services: Based on the above findings, I certify that this patient is confined to the home and needs intermittent senior living care, physical therapy and/or speech therapy or continues to need occupational therapy. The patient is under my care, and I have initiated the establishment of the plan of care. This patient will be followed by a physician who will periodically review the plan of care. Total Time Total Time Spent Total Time Spent (In Minutes): 45 Discharge Plan Discharge Items Patient Disposition: Home - Home Health Services Reason For Visit: FLUID OVERLOAD, ACUTE ON CHRONIC RESP FAILURE Discharge Diagnosis: Acute on chronic respiratory failure due to heart failure and cor pulmonale Left lower extremity cellulitis Condition on Discharge: Fair Activity: Resume your previous activity Activity Comment: Wear oxygen at all times Non-emergency contact: Primary Care Provider and Vinyl Flooring Installer Call non-emergency contact if: your symptoms worsen Follow-up/Referrals: Khoa Hui MD [Primary Care Provider] - 02/15/24 10:40 am (Date & Time 02/15/2024 10:40 AM Provider Khoa Hui MD Department Family Practice [facility] ) Segundo Clarke MD [Outside Practitioners] - 02/15/24 9:40 am (Date & Time 02/15/2024 9:40 AM Provider Segundo Clarke MD Department Pulmonary Medicine, [facility] ) Diet: Heart Healthy and Low Sodium (2gm) Fluids: 1800ml (7 cups) Addtl Attending Provider Instructions: Wear oxygen at all times Follow-up with your physical scientist to discuss further interventions on your lung nodule Get PT/INR checked per usual process on Monday Pending Studies at Discharge: No Stand-Alone Forms: My [facility] [employer], Smoking Cessation Medications and DC Order Prescriptions: New doxycycline hyclate 100 mg Capsule 100 mg PO BID 5 Days Qty: 10 0RF prednisone 20 mg Tablet 20 mg PO DAILY 3 Days Qty: 3 0RF benzonatate 100 mg Capsule 100 mg PO Q6H PRN (Reason: cough) Qty: 30 0RF guaifenesin [Mucinex] 600 mg Tablet Extended Release 12hr 600 mg PO Q12 Qty: 30 0RF amoxicillin-pot clavulanate [Augmentin] 500-125 mg tablet 1 tab PO TID 5 Days Qty: 15 0RF Continued sotalol 80 mg Tablet 80 mg PO BID nitroglycerin 0.4 mg Tablet, Sublingual 0.4 mg sublingual DIRECTED PRN (Reason: Chest Pain) Rx Instructions: Place 1 Tablet under the tongue every 5 minutes as needed. atorvastatin 40 mg tablet 40 mg PO HS spironolactone 25 mg tablet 25 mg PO QAM aspirin 81 mg Tablet,Delayed Release (Dr/Ec) 81 mg PO QAM azelastine 137 mcg (0.1 %) aerosol,spray 1 spray INTRANASAL [facility]HS warfarin 2.5 mg tablet 2.5 mg PO QPM Rx Instructions: 1.25 mg every Sat; 2.5 mg all other days. albuterol sulfate 2.5 mg /3 mL (0.083 %) Solution For Nebulization 2.5 mg INHALATION DIRECTED PRN (Reason: Shortness Of Breath Or Wheezing) isosorbide mononitrate 30 mg Tablet Extended Release 24 Hr 30 mg PO QAM Qty: 30 0RF sucralfate [Carafate] 100 mg/mL suspension 10 ml PO QID Qty: 420 0RF Rx Instructions: Swish in mouth and swallow; use after food/drink: may substitute tablets as a slurry. albuterol sulfate 90 mcg/actuation HFA aerosol inhaler 2 inh INHALATION Q4H PRN (Reason: Shortness Of Breath Or Wheezing) Breztri Aerosphere 160-9-4.8 mcg/actuation HFA aerosol inhaler 2 inh INHALATION AMHS Qty: 1 0RF Changed furosemide 20 mg Tablet 40 mg PO QAM Qty: 60 0RF Discharge Orders: Discharge Order (Routine); Ordered 02/09/24 Ordered By: Thomas Meehan/Other Patient Handouts: Type 2 Diabetes Admission Data Admit Date/Time: 02/06/24 17:56 Attending Provider: Thomas Moulton Admit Provider: Temo Hatch Primary Care Provider: Khoa Hui Other Providers: Temo Hatch; Monico Walsh
[2024-02-09 12:54] VITALS: PULSE 62; RESP 19; TEMP 97.5; O2SAT 94
[2024-02-09 13:50] VITALS: BP 95/52
== END 2024-02-09 16:58 | disposition home health service (06) | DRG 189 ==
LOC: ED 14:30 → 2S 17:56 → SUATTDRO 17:56 → 2S 20:21 → 3E 02-08 15:16

== ENCOUNTER 2024-03-01 19:11 | Inpatient (IN) ==
[2024-03-01 19:48] LABS: iSTAT Creatinine 0.8 mg/dl (0.6-1.3); iSTAT Hemoglobin 12.9 g/dl (12.0-16.0); iSTAT Ionized Calcium 1.08 mmol/l (1.12-1.32); iSTAT Potassium 3.8 mmol/L (3.3-5.0)
[2024-03-01 19:49] LABS: Basophils # (auto) 0.03 K/uL (0.00-0.20); Basophils % (auto) 0.2 %; Eosinophils % (auto) 0.7 %; Hematocrit (blood only) 38.4 % (37.0-47.0); Hemoglobin 12.2 g/dl (12.0-16.0); Immature Granulocytes # (auto) 0.07 K/uL (0.01-0.20); Immature Granulocytes % (auto) 0.5 %; Lymphocytes # (auto) 1.24 K/uL (1.20-3.40); Lymphocytes % (auto) 8.9 %; Mean Corpuscular Hemoglobin 30.5 pg (25.0-34.0); Mean Corpuscular Hgb Conc 31.8 g/dL (32.0-36.0); Mean Platelet Volume 11.7 fL (9.4-12.4); Monocytes # (auto) 1.04 K/uL (0.11-0.59); Monocytes % (auto) 7.5 %; Neutrophils # (auto) 11.38 K/uL (1.40-6.50); Neutrophils % (auto) 82.2 %; Platelet Count 165 K/uL (130-400); RDW Coefficient of Variation 13.8 % (11.5-14.5); RDW Standard Deviation 48.8 fL (36.4-46.3); White Blood Count 13.86 K/ul (4.8-10.8)
[2024-03-01 19:59] LABS: Albumin Globulin Ratio 1.4 (0.9-2); Albumin Level 3.6 gm/dl (3.4-5.0); Bilirubin,Total 1.3 mg/dl (0.2-1.0); Calcium 8.5 mg/dl (8.6-10.3); Est GFR (Non-African American) 83.7 ml/min; Globulin 2.6 gm/dl (2.5-4.0); Potassium 3.8 mmol/L (3.5-5.1); Total Protein 6.2 gm/dl (6.0-8.3)
[2024-03-01 20:16] LABS: INR 1.7 (0.9-1.1)
[2024-03-01] MEDS: ACETAMINOPHEN 1,000 MG/100 ML VIAL IV STA (20:19)
[2024-03-01] MEDS: fentaNYL citrate PF 100 MCG/2 ML VIAL IV ONE (20:19)
[2024-03-01] MEDS: ONDANSETRON INJ 2 MG/ML 2 ML VIAL IV STA ×2 (20:31→21:29)
--- NOTE | 2024-03-01 22:00 | XRay Report ---
SINGLE VIEW CHEST CLINICAL HISTORY: Trauma FINDINGS: An AP, portable, upright chest radiograph is compared to study dated 02/06/2024 and correlate d with chest CT dated 01/05/2024. The cardiomediastinal silhouette is unremarkable noting atherosclerot ic calcification of the thoracic aorta. Advanced emphysema and chronic interstitial thickening is sim ilar to previous. There is bibasilar scarring/atelectasis. A left apical pulmonary lesion is again no lore and was better assessed on the recent chest CT. No airspace consolidation or large pleural effusi on is identified. No pneumothorax is seen. The skeletal structures are osteopenic. The bony thorax is grossly intact. IMPRESSION: 1. Advanced emphysematous change with no acute cardiopulmonary abnormality identified. 2. A left apical pulmonary lesion is unchanged and was better assessed on the 01/05/[address]. This remains highly suspicious for a pulmonary neoplasm. ACT 112: Negative or not required by law. Electronically signed by: Geo Newman M.D. 03/01/2024 9:59 PM
[2024-03-01] MEDS: LORazepam 2 MG/1 ML VIAL IV STA (22:27)
--- NOTE | 2024-03-01 22:32 | Emergency Department Note ---
Impression & Plan Hematoma of left lower extremity, Cellulitis of right leg, Fall, Anticoagulated ED Provider Note CHIEF COMPLAINT: fall, right leg infection, back pain HISTORY OF PRESENT ILLNESS: This 79-year-old female patient presents to the emergency department with complaints of right lower extremity redness and pain. Patient states she was recently admitted to the hospital for cellulitis and was treated with doxycycline and Augmentin. She has since completed the course of these antibiotics and was seen by the home health nurse yesterday. An antibiotic was called into the pharmacy which she began today, Bactrim. Patient is concerned with the swelling of the lower extremities. She apparently got up to make coffee and a snack, lost her footing and fell into the chair. She is experiencing some left lower extremity discomfort and hematoma. She is anticoagulated on Coumadin which has recently been cut back. Patient denies hitting her head, she denies chest pain but does complain of some low back pain. She does also complain of nausea. REVIEW OF SYSTEMS: A review of systems was performed with positives and pertinent negatives listed in the history of present illness. 10 systems were reviewed and are otherwise negative. ALLERGIES: see below MEDICATIONS: see below PMH: see below SOCIAL HISTORY: see below DDx: Cellulitis, UTI, closed head injury, intracranial hemorrhage, lower extremity hematoma, fracture, contusion among others. PHYSICAL EXAM: Vital signs reviewed. General: Chronically ill-appearing 79-year-old female, Significantly anxious, slightly agitated. HEENT: No scleral icterus, PERRLA, neck supple. Atraumatic. Cardiovascular: Regular rate and rhythm, no extra sounds. Pulmonary: diminished breath sounds bilaterally with faint rhonchi to auscultation, increased work of breathing on nasal cannula oxygen Abdomen: Soft, nontender, nondistended, positive bowel sounds. Musculoskeletal: Atraumatic, no peripheral edema. Neurologic: Patient awake alert and oriented x 3, speech is clear Skin: Warm, dry, no rash EMERGENCY DEPARTMENT COURSE/MDM: This patient was evaluated and appeared to be in no significant distress. IV access was obtained and laboratory work was drawn. The patient was a bit agitated and noted to be having some increased work of breathing. She was placed on nasal cannula oxygen. Patient was medicated with IV ceftriaxone For cellulitis in the right lower extremity. Patient was also medicated with IV acetaminophen and fentanyl for her pain. Laboratory work is significant for a slightly elevated WBC. Ultrasound of the bilateral lower extremities is negative for DVT however there is a obvious hematoma at the left calf. CT imaging of the head was performed and is negative for acute intracranial pathology, chest x-ray significant for an apical pulmonary lesion that has been seen previously and is concerning for neoplasm. Lumbar spine CT reveals no evidence of acute fracture or traumatic finding otherwise. Case was discussed with the [facility] who will evaluate the patient for admission due to her poor overall conditioning, fall and lower extremity cellulitis. patient and her daughter were updated to the findings and plan and agreed. MONITORING: An order for cardiac monitoring was placed and the patient is noted to be in a normal sinus rhythm at 65 beats per minute. RADIOLOGY: chest x-ray to my interpretation reveals no focal lung consolidation or failure, per radiology: IMPRESSION: 1. Advanced emphysematous change with no acute cardiopulmonary abnormality identified. 2. A left apical pulmonary lesion is unchanged and was better assessed on the 01/05/[address] This remains highly suspicious for a pulmonary neoplasm. EKG: to my interpretation reveals a normal sinus rhythm at 70 bpm. incomplete right bundle branch block, QTc of 449. Poor quality baseline for interpretation. DISPOSITION: admission Past Med/Surg History Problem List (Updated 03/04/24 @ 00:19 by Mary Benavidez MD) Anticoagulated (Acute) Fall (Acute) Cellulitis of right leg (Acute) Hematoma of left lower extremity (Acute) Hematoma and contusion Cellulitis of left lower extremity Cor pulmonale Pulmonary hypertension Bilateral lower leg cellulitis Bilateral lower extremity edema Left upper lobe pulmonary nodule Acute on chronic respiratory failure Cellulitis (Acute) Fluid overload (Acute) Anticoagulated on Coumadin (Acute) Pedal edema (Acute) SOB (shortness of breath) (Acute) COPD exacerbation (Acute) Hypoxia (Acute) NSTEMI (non-ST elevated myocardial infarction) Elevated brain natriuretic peptide (BNP) level (Acute) Elevated troponin (Acute) Substernal chest pain (Acute) Chest pain Acute hypoxemic respiratory failure Dyspnea (Acute) Hypoxia (Acute) Acute exacerbation of chronic obstructive pulmonary disease (COPD) (Acute) Venous insufficiency (Chronic) COPD (chronic obstructive pulmonary disease) (Chronic) Prediabetes (Chronic) Hyperlipidemia (Chronic) Hypotension (Acute) Tobacco abuse (Chronic) S/P right coronary artery (RCA) stent placement (Chronic) CAD (coronary artery disease), [place] coronary artery (Chronic) Emphysema of lung (Chronic) Hypertension (Chronic) Atrial fibrillation with rapid ventricular response (Acute) Medical History (Updated 03/04/24 @ 00:19 by Mary Benavidez MD) Paroxysmal atrial fibrillation Surgical History H/O: hysterectomy S/P appendectomy Family History Other Colon cancer Social History Smoking Status: Light tobacco smoker Tobacco Type: Cigarettes Cigarettes Per Day: smokes occasionally, some days doesn't smoke, other days smokes 3-5 cigs; Second Hand Exposure: No; Do You Dip or Chew Tobacco: No; Tobacco Cessation Education Requested by Patient: No Hx Alcohol Use: Yes Alcohol type: wine Alcohol Intake Frequency Comment: 1-2 glasses of wine 3-5 days per week Hx Substance Use: No Preferred Language: Hong [place]er Communication Ability: Effective [employer] Lit[employer] Associate Required: No Beliefs That Will Affect Care: None Current Living Situation: Alone Other Information That Helps Us Care for You: No Feels Safe at Home: Yes Safety Concerns: Feels Safe At This Time Assistive Devices: Oxygen - Continuous Allergies Allergies Allergy/AdvReac Type Severity Reaction Status Date / Time dog dander Allergy Severe congestion, Verified 02/06/24 16:24 SOB valsartan Allergy Severe Edema Verified 02/06/24 16:24 face/lips/tongue. levofloxacin [From Levaquin] Allergy Intermediate ITCHY Verified 02/06/24 16:24 HIVES ON TRUNK AND LEGS nickel Allergy Mild Rash. Verified 02/06/24 16:24 NAI Inhibitors AdvReac Intermediate Cough. Verified 02/06/24 16:24 influenza virus vaccine ts AdvReac Intermediate SINUS Verified 02/06/24 16:24 [id number] (36 mos,up) PRESSURE/DRAINAGE [From Fluarix] Home Meds Home Medications Medication Instructions Recorded Confirmed nitroglycerin 0.4 mg sublingual 0.4 mg sublingual DIRECTED PRN 04/19/19 03/01/24 tablet Chest Pain sotalol 80 mg tablet 80 mg PO BID 04/19/19 03/01/24 aspirin 81 mg tablet,delayed 81 mg PO QAM 01/17/23 03/01/24 release azelastine 137 mcg (0.1 %) nasal 1 spray intranasal AMHS 01/17/23 02/06/24 spray spironolactone 25 mg tablet 25 mg PO QAM 01/17/23 03/01/24 warfarin 2.5 mg tablet 2.5 mg PO DAILY 01/17/23 03/01/24 albuterol sulfate 2.5 mg/3 mL 2.5 mg inhalation DIRECTED PRN 06/26/23 03/01/24 (0.083 %) solution for nebulization Shortness Of Breath Or Wheezing albuterol sulfate 90 mcg/actuation 2 inh inhalation Q4H PRN Shortness 01/02/24 03/01/24 aerosol inhaler Of Breath Or Wheezing sulfamethoxazole 800 2 tab PO DAILY 03/01/24 03/01/24 mg-trimethoprim 160 mg tablet Previous Rx's Medication Instructions Recorded isosorbide mononitrate 30 mg 30 mg PO QAM #30 tabs 06/27/23 tablet,extended release 24 hr budesonide 160 mcg-glycopyr 9 2 inh inhalation AMHS #1 inhaler 02/09/24 mcg-formot 4.8 mcg/actuation HFA inhaler (Breztri Aerosphere) furosemide 20 mg tablet 40 mg (2 x 20 mg) PO QAM #60 tabs 02/09/24 Results & Data (ED) Vital Signs Vital Signs - 24 hr 03/01/24 19:04 03/01/24 20:00 03/01/24 20:28 Temperature 36.9 C Temperature Source Oral Pulse Rate 72 65 Pulse Rate [Apical] 67 Respiratory Rate 18 24 Respiratory Effort / Characteristics Non-Labored Spontaneous Spontaneous Respiratory Depth Normal Shallow Respiratory Pattern Regular Tachypnea Blood Pressure 150/87 H Blood Pressure [Left Arm] 133/85 Blood Pressure Mean 108 Blood Pressure Mean [Left Arm] 101 Blood Pressure Position Sitting Pulse Oximetry 95 97 Oxygen Delivery Method Nasal Cannula Nasal Cannula Oxygen Flow Rate 3 3 Sepsis Recent Fever Within 48 Hours No Sepsis New/Unexplained Change in Mental Status N/A Sepsis Action Taken by Nursing No Action Required Home Medications Current Medication List: was personally reviewed by me Laboratory Data Attestation: I reviewed the patient's lab results. 03/03/24 05:54 03/03/24 05:54 Lab Results 03/01/24 03/01/24 03/01/24 Range/Units 19:30 19:35 19:55 WBC 13.86 H (4.8-10.8) K/ul RBC 4.00 L (4.20-5.40) M/uL Hgb 12.2 (12.0-16.0) g/dl POC Hgb 12.9 (12.0-16.0) g/dl Hct 38.4 (37.0-47.0) % POC Hct 38 (37-47) % MCV 96.0 (80.0-100.0) fL MCH 30.5 (25.0-34.0) pg MCHC 31.8 L (32.0-36.0) g/dL RDW Std Deviation 48.8 H (36.4-46.3) fL RDW Coeff of Anais 13.8 (11.5-14.5) % Plt Count 165 (130-400) K/uL MPV 11.7 (9.4-12.4) fL Immature Gran % (Auto) 0.5 % Neut % (Auto) 82.2 % Lymph % (Auto) 8.9 % [place] % (Auto) 7.5 % Eos % (Auto) 0.7 % Baso % (Auto) 0.2 % Neut # (Auto) 11.38 H (1.40-6.50) K/uL Lymph # (Auto) 1.24 (1.20-3.40) K/uL [place] # (Auto) 1.04 H (0.11-0.59) K/uL Eos # (Auto) 0.10 (0.00-0.50) K/uL Baso # (Auto) 0.03 (0.00-0.20) K/uL Immature Gran # (Auto) 0.07 (0.01-0.20) K/uL PT 18.0 H (9.0-12.0) Seconds INR 1.7 H (0.9-1.1) VBG pH (7.36-7.41) VBG pCO2 (38-50) mmHg VBG pO2 mmHg VBG HCO3 mmol/L VBG O2 Saturation % VBG Base Excess mEq/L POC Sodium 136 (135-144) mmol/L Sodium 136 (136-145) mmol/L POC Potassium 3.8 (3.3-5.0) mmol/L Potassium 3.8 (3.5-5.1) mmol/L POC Chloride 93 L (101-112) mmol/L Chloride 95 L (98-107) mmol/L Carbon Dioxide 36 H (21-32) mmol/L POC Total CO2 34 H (24-31) mmol/L Anion Gap 5 (3-11) POC Anion Gap 14.0 L (16-25) mmol/L POC BUN 17 (7-18) mg/dl BUN 16 (6-23) mg/dl Creatinine 0.64 (0.6-1.2) mg/dl POC Creatinine 0.8 (0.6-1.3) mg/dl Est Cr Clr Drug Dosing 62.0 ml/min Est GFR ( Amer) 97.0 ml/min Est GFR (Non-Af Amer) 83.7 ml/min BUN/Creatinine Ratio 25.0 H (10-20) Glucose 152 H (70-99(Fasting)) mg/dl POC Glucose (other) 150 H (70-99) mg/dl Calcium 8.5 L (8.6-10.3) mg/dl POC Ioniz Calcium Estela 1.08 L (1.12-1.32) mmol/l Magnesium 1.6 L (1.7-2.4) mg/dl Total Bilirubin 1.3 H (0.2-1.0) mg/dl AST 19 (13-39) U/L ALT 22 (7-52) U/L Alkaline Phosphatase 69 (34-104) U/L Total Creatine Kinase 29 (26-192) U/L B-Natriuretic Peptide 198 H (0-100) pg/ml Total Protein 6.2 (6.0-8.3) gm/dl Albumin 3.6 (3.4-5.0) gm/dl Globulin 2.6 (2.5-4.0) gm/dl Albumin/Globulin Ratio 1.4 (0.9-2) Adenovirus (PCR) (NotDetected) B. pertussis DNA (PCR) (NotDetected) B.parapertussis DNA PCR (NotDetected) C. pneumoniae DNA (PCR) (NotDetected) Coronavirus OC43 (PCR) (NotDetected) Coronavirus HKU1 (PCR) (NotDetected) Coronavirus 229E (PCR) (NotDetected) SARS-CoV-2 (PCR) (NotDetected) Coronavirus NL63 (PCR) (NotDetected) Human Metapneumovir PCR (NotDetected) Influenza Type A (PCR) (NotDetected) Influenza Type B (PCR) (NotDetected) M. pneumoniae (PCR) (NotDetected) Parainfluenza 1 (PCR) (NotDetected) Parainfluenza 2 (PCR) (NotDetected) Parainfluenza 3 (PCR) (NotDetected) Parainfluenza 4 (PCR) (NotDetected) RSV (PCR) (NotDetected) Entero/Rhino (PCR) (NotDetected) Blood Type A Positive Antibody Screen NEGATIVE 03/01/24 03/02/24 Range/Units 23:38 00:08 WBC (4.8-10.8) K/ul RBC (4.20-5.40) M/uL Hgb 12.2 (12.0-16.0) g/dl POC Hgb (12.0-16.0) g/dl Hct 38.2 (37.0-47.0) % POC Hct (37-47) % MCV (80.0-100.0) fL MCH (25.0-34.0) pg MCHC (32.0-36.0) g/dL RDW Std Deviation (36.4-46.3) fL RDW Coeff of Anais (11.5-14.5) % Plt Count (130-400) K/uL MPV (9.4-12.4) fL Immature Gran % (Auto) % Neut % (Auto) % Lymph % (Auto) % [place] % (Auto) % Eos % (Auto) % Baso % (Auto) % Neut # (Auto) (1.40-6.50) K/uL Lymph # (Auto) (1.20-3.40) K/uL [place] # (Auto) (0.11-0.59) K/uL Eos # (Auto) (0.00-0.50) K/uL Baso # (Auto) (0.00-0.20) K/uL Immature Gran # (Auto) (0.01-0.20) K/uL PT (9.0-12.0) Seconds INR (0.9-1.1) VBG pH 7.30 L (7.36-7.41) VBG pCO2 78 H (38-50) mmHg VBG pO2 24 mmHg VBG HCO3 38 mmol/L VBG O2 Saturation < 60.0 % VBG Base Excess 8.8 mEq/L POC Sodium (135-144) mmol/L Sodium (136-145) mmol/L POC Potassium (3.3-5.0) mmol/L Potassium (3.5-5.1) mmol/L POC Chloride (101-112) mmol/L Chloride (98-107) mmol/L Carbon Dioxide (21-32) mmol/L POC Total CO2 (24-31) mmol/L Anion Gap (3-11) POC Anion Gap (16-25) mmol/L POC BUN (7-18) mg/dl BUN (6-23) mg/dl Creatinine (0.6-1.2) mg/dl POC Creatinine (0.6-1.3) mg/dl Est Cr Clr Drug Dosing ml/min Est GFR ( Amer) ml/min Est GFR (Non-Af Amer) ml/min BUN/Creatinine Ratio (10-20) Glucose (70-99(Fasting)) mg/dl POC Glucose (other) (70-99) mg/dl Calcium (8.6-10.3) mg/dl POC Ioniz Calcium Estela (1.12-1.32) mmol/l Magnesium (1.7-2.4) mg/dl Total Bilirubin (0.2-1.0) mg/dl AST (13-39) U/L ALT (7-52) U/L Alkaline Phosphatase (34-104) U/L Total Creatine Kinase (26-192) U/L B-Natriuretic Peptide (0-100) pg/ml Total Protein (6.0-8.3) gm/dl Albumin (3.4-5.0) gm/dl Globulin (2.5-4.0) gm/dl Albumin/Globulin Ratio (0.9-2) Adenovirus (PCR) Not Detected (NotDetected) B. pertussis DNA (PCR) Not Detected (NotDetected) B.parapertussis DNA PCR Not Detected (NotDetected) C. pneumoniae DNA (PCR) Not Detected (NotDetected) Coronavirus OC43 (PCR) Not Detected (NotDetected) Coronavirus HKU1 (PCR) Not Detected (NotDetected) Coronavirus 229E (PCR) Not Detected (NotDetected) SARS-CoV-2 (PCR) Not Detected (NotDetected) Coronavirus NL63 (PCR) Not Detected (NotDetected) Human Metapneumovir PCR Not Detected (NotDetected) Influenza Type A (PCR) Not Detected (NotDetected) Influenza Type B (PCR) Not Detected (NotDetected) M. pneumoniae (PCR) Not Detected (NotDetected) Parainfluenza 1 (PCR) Not Detected (NotDetected) Parainfluenza 2 (PCR) Not Detected (NotDetected) Parainfluenza 3 (PCR) Not Detected (NotDetected) Parainfluenza 4 (PCR) Not Detected (NotDetected) RSV (PCR) Not Detected (NotDetected) Entero/Rhino (PCR) Not Detected (NotDetected) Blood Type Antibody Screen Administered Medications Acetaminophen (Acetaminophen Susp 325 Mg/10.15 Ml Udc) 650 mg PO Q6H PRN PRN Reason: Pain Stop: 04/02/24 14:08 Last Admin: 03/03/24 14:25 Dose: 650 mg Documented By: LND Albuterol (Albuterol Hfa 8 Gm Inhaler) 2 puffs INH Q2H PRN PRN Reason: sob/wheeze Stop: 04/01/24 19:59 Last Admin: 03/03/24 18:32 Dose: 2 puffs Documented By: Admin: 03/03/24 08:35 Dose: 2 puffs Documented By: Admin: 03/02/24 20:36 Dose: 2 puffs Documented By: KYC Azelastine HCl (Azelastine Hcl 0.1% Nasal 200 Sprays/27,400 Mcg Btl) 1 sprays KARISHMA AMHS DONOVAN Stop: 04/01/24 20:59 Last Admin: 03/03/24 21:12 Dose: 1 sprays Documented By: Admin: 03/03/24 08:28 Dose: 1 sprays Documented By: JUAN ALBERTO Admin: 03/02/24 21:39 Dose: 1 sprays Documented By: ROSIE Doxycycline Hyclate (Doxycycline Hyclate 100 Mg Cap) 100 mg PO BID DONOVAN Stop: 03/09/24 08:59 Last Admin: 03/03/24 21:12 Dose: 100 mg Documented By: Admin: 03/03/24 08:30 Dose: 100 mg Documented By: JUAN ALBERTO Admin: 03/02/24 20:51 Dose: 100 mg Documented By: Admin: 03/02/24 07:48 Dose: 100 mg Documented By: JUAN ALBERTO Fluticasone Furoate (Fluticasone Furoate 200mcg 14 Puffs/Inhaler) 1 puffs INH DAILY DONOVAN Stop: 04/01/24 08:59 Last Admin: 03/03/24 08:29 Dose: 1 puffs Documented By: JUAN ALBERTO Admin: 03/02/24 07:47 Dose: 1 puffs Documented By: JUAN ALBERTO Guaifenesin (Guaifenesin 600 Mg Tabcr) 600 mg PO Q12 DONOVAN Stop: 04/01/24 08:59 Last Admin: 03/03/24 20:36 Dose: Not Given Documented By: Admin: 03/03/24 08:31 Dose: Not Given Documented By: JUAN ALBERTO Admin: 03/02/24 20:50 Dose: Not Given Documented By: Admin: 03/02/24 07:54 Dose: Not Given Documented By: JUAN ALBERTO Insulin Aspart (Insulin Aspart Per Unit Charge) 0 units SC ACHS DONOVAN Stop: 04/01/24 01:10 Last Admin: 03/03/24 21:39 Dose: Not Given Documented By: ROSIE Co-signed By: ILIANA Admin: 03/03/24 08:40 Dose: Not Given Documented By: JUAN ALBERTO Admin: 03/03/24 08:40 Dose: Not Given Documented By: JUAN ALBERTO Admin: 03/03/24 07:09 Dose: Not Given Documented By: JUAN ALBERTO Admin: 03/02/24 20:12 Dose: Not Given Documented By: ROSIE Co-signed By: ILIANA Admin: 03/02/24 09:09 Dose: Not Given Documented By: JUAN ALBERTO Admin: 03/02/24 09:09 Dose: Not Given Documented By: JUAN ALBERTO Admin: 03/02/24 07:46 Dose: Not Given Documented By: JUAN ALBERTO Admin: 03/02/24 03:00 Dose: Not Given Documented By: ROSIE Co-signed By: ALLI Isosorbide Mononitrate (Isosorbide [place] Extended Rel 30 Mg Tabcr) 30 mg PO QAM [facility] Stop: 04/01/24 08:59 Last Admin: 03/03/24 08:30 Dose: Not Given Documented By: JUAN ALBERTO Admin: 03/02/24 07:47 Dose: 30 mg Documented By: JUAN ALBERTO Prednisone (Prednisone 20 Mg Tab) 20 mg PO DAILY [facility] Stop: 03/06/24 08:59 Last Admin: 03/03/24 08:30 Dose: 20 mg Documented By: JUAN ALBERTO Admin: 03/02/24 07:48 Dose: 20 mg Documented By: JUAN ALBERTO Sotalol HCl (Sotalol Hcl 80 Mg Tab) 80 mg PO BID [facility] Stop: 04/01/24 08:59 Last Admin: 03/03/24 21:12 Dose: 80 mg Documented By: Admin: 03/03/24 08:30 Dose: 80 mg Documented By: JUAN ALBERTO Admin: 03/02/24 20:51 Dose: 80 mg Documented By: Admin: 03/02/24 07:47 Dose: 80 mg Documented By: JUAN ALBERTO Umeclidinium/Vilanterol (Umeclidinium/Vilanterol 62.5/25mcg 7 Puffs/Inhaler) 1 puffs INH DAILY [facility] Stop: 04/01/24 08:59 Last Admin: 03/03/24 08:29 Dose: 1 puffs Documented By: JUAN ALBERTO Admin: 03/02/24 07:47 Dose: 1 puffs Documented By: JUAN ALBERTO Discontinued Medications Albuterol (Albut/Ipratrop 3mg/0.5mg Neb 3 Ml Vial) 3 ml NEB NOW STA; Protocol Stop: 03/01/24 23:01 Last Admin: 03/01/24 23:34 Dose: 3 ml Documented By: LESA Albuterol (Albut/Ipratrop 3mg/0.5mg Neb 3 Ml Vial) 3 ml NEB QIDR DONOVAN; Protocol Stop: 04/01/24 06:59 Last Admin: 03/02/24 08:38 Dose: Not Given Documented By: SEBASTIAN Fentanyl Citrate (Fentanyl Citrate Pf 100 Mcg/2 Ml Vial) 25 mcg IV NOW ONE Stop: 03/01/24 20:11 Last Admin: 03/01/24 20:19 Dose: 25 mcg Documented By: LISANDRO Furosemide (Furosemide Inj 20 Mg/2 Ml Vial) 20 mg IV ONE ONE Stop: 03/01/24 23:01 Last Admin: 03/01/24 23:34 Dose: 20 mg Documented By: LESA Acetaminophen (Ofirmev) 1,000 mg in 100 mls @ 400 mls/hr IV NOW STA Stop: 03/01/24 20:21 Last Infusion: 03/01/24 20:37 Dose: Infused Documented By: Admin: 03/01/24 20:19 Dose: 400 mls/hr Documented By: LISANDRO Sodium Chloride (Nss) 1,000 mls @ 80 mls/hr IV .[id number] DONOVAN Stop: 03/31/24 21:29 Last Admin: 03/01/24 22:42 Dose: Not Given Documented By: SHON Ceftriaxone Sodium (Rocephin) 2,000 mg in 50 mls @ 100 mls/hr IV NOW STA Stop: 03/01/24 22:35 Last Infusion: 03/01/24 23:39 Dose: Infused Documented By: Admin: 03/01/24 22:33 Dose: 100 mls/hr Documented By: SHON Sodium Chloride (Nss) 1,000 mls @ 80 mls/hr IV .[id number] ONE Stop: 03/02/24 10:43 Last Admin: 03/01/24 22:43 Dose: Not Given Documented By: SHON Methylprednisolone 20 mg/ (Syringe) 0.32 mls @ 1.5 mls/min IV NOW ONE Stop: 03/01/24 23:06 Last Admin: 03/01/24 23:56 Dose: 1.5 mls/min Documented By: BENITO Doxycycline Hyclate 100 mg/ (Dextrose) 100 mls @ 50 mls/hr IV NOW STA Stop: 03/02/24 01:02 Last Infusion: 03/02/24 02:05 Dose: Infused Documented By: Admin: 03/01/24 23:57 Dose: 50 mls/hr Documented By: BENITO Magnesium Sulfate/Dextrose (Magnesium Sulfate / D5w) 1 gm in 100 mls @ 50 mls/hr IV Q2H DONOVAN Stop: 03/02/24 03:14 Last Infusion: 03/02/24 07:28 Dose: Infused Documented By: JUAN ALBERTO Admin: 03/02/24 05:04 Dose: 50 mls/hr Documented By: Infusion: 03/02/24 05:04 Dose: Infused Documented By: Admin: 03/02/24 03:18 Dose: 50 mls/hr Documented By: ROSIE Ioversol (Optiray 320 125ml) 120 ml IV ONCE ONE Stop: 03/02/24 00:43 Last Admin: 03/02/24 00:42 Dose: 120 ml Documented By: PAOLA Lorazepam (Lorazepam 2 Mg/1 Ml Vial) 0.5 mg IV NOW STA Stop: 03/01/24 21:51 Last Admin: 03/01/24 22:27 Dose: 0.5 mg Documented By: SHON Morphine Sulfate (Morphine Sulfate 2 Mg/Ml Carp) 2 mg IV NOW STA Stop: 03/01/24 21:25 Last Admin: 03/01/24 22:42 Dose: Not Given Documented By: SHON Ondansetron HCl (Ondansetron Inj 2 Mg/Ml 2 Ml Vial) 4 mg IV NOW STA Stop: 03/01/24 20:31 Last Admin: 03/01/24 20:31 Dose: 4 mg Documented By: LISANDRO Ondansetron HCl (Ondansetron Inj 2 Mg/Ml 2 Ml Vial) 4 mg IV NOW STA Stop: 03/01/24 21:25 Last Admin: 03/01/24 21:29 Dose: 4 mg Documented By: LISANDRO Imaging Data Radiologist's Impression: Chest X-Ray 03/01/24 19:15 SINGLE VIEW CHEST CLINICAL HISTORY: Trauma FINDINGS: An AP, portable, upright chest radiograph is compared to study dated 02/06/2024 and correlated with chest CT dated 01/05/2024. The cardiomediastinal silhouette is unremarkable noting atherosclerotic calcification of the thoracic aorta. Advanced emphysema and chronic interstitial thickening is similar to previous. There is bibasilar scarring/atelectasis. A left apical pulmonary lesion is again noted and was better assessed on the recent chest CT. No airspace consolidation or large pleural effusion is identified. No pneumothorax is seen. The skeletal structures are osteopenic. The bony thorax is grossly intact. IMPRESSION: 1. Advanced emphysematous change with no acute cardiopulmonary abnormality identified. 2. A left apical pulmonary lesion is unchanged and was better assessed on the 01/05/[address] This remains highly suspicious for a pulmonary neoplasm. ACT 112: Negative or not required by law. Electronically signed by: Geo Newman M.D. 03/01/2024 9:59 PM Chest X-Ray 03/01/24 19:15 SINGLE VIEW CHEST CLINICAL HISTORY: Trauma FINDINGS: An AP, portable, upright chest radiograph is compared to study dated 02/06/2024 and correlated with chest CT dated 01/05/2024. The cardiomediastinal silhouette is unremarkable noting atherosclerotic calcification of the thoracic aorta. Advanced emphysema and chronic interstitial thickening is similar to previous. There is bibasilar scarring/atelectasis. A left apical pulmonary lesion is again noted and was better assessed on the recent chest CT. No airspace consolidation or large pleural effusion is identified. No pneumothorax is seen. The skeletal structures are osteopenic. The bony thorax is grossly intact. IMPRESSION: 1. Advanced emphysematous change with no acute cardiopulmonary abnormality identified. 2. A left apical pulmonary lesion is unchanged and was better assessed on the 01/05/[address] This remains highly suspicious for a pulmonary neoplasm. ACT 112: Negative or not required by law. Electronically signed by: Geo Newman M.D. 03/01/2024 9:[address] 03/01/24 20:07 Exam(s): CT HEAD Without Contrast EXAM: CT Head Without Intravenous Contrast CLINICAL HISTORY: Reason for exam: fall, coumdin, ? head injury. TECHNIQUE: Axial computed tomography images of the head/brain without intravenous contrast. Automated exposure control was utilized for the study. A dose lowering technique was utilized adhering to the principles of ALARA. COMPARISON: No relevant prior studies available. FINDINGS: No acute intracranial hemorrhage. No midline shift or mass effect. The territorial vega-white matter differentiation is maintained throughout. The ventricles and sulci are commensurate with age. The visualized orbits appear grossly unremarkable. The calvarium is intact. The visualized paranasal sinuses and mastoid air cells are grossly clear. IMPRESSION: No acute intracranial hemorrhage, midline shift, or mass effect. Electronically signed by: Neal Lacy MD 03/01/24 23:[address] 03/01/24 20:07 Exam(s): CT L SPINE EXAM: CT Lumbar Spine Without Intravenous Contrast CLINICAL HISTORY: Reason for exam: fall, low back pain. TECHNIQUE: Axial computed tomography images of the lumbar spine without intravenous contrast. Automated exposure control was utilized for the study. A dose lowering technique was utilized adhering to the principles of ALARA. COMPARISON: No relevant prior studies available. FINDINGS: The vertebral body heights are maintained. The lumbar lordosis is preserved. There is no spondylolisthesis. The posterior elements are maintained, without evidence of acute fracture. The pedicles are intact. Multilevel lumbar spondylosis and degenerative disc disease. IMPRESSION: No acute fracture or subluxation of the lumbar spine. Electronically signed by: Neal Lacy MD 03/01/24 23:41 PM Chest CTA 03/01/24 23:09 Exam(s): CTA CHEST IV Amt: 120 ml EXAM: CT Angiography Chest With Intravenous Contrast CLINICAL HISTORY: Reason for exam: sob. TECHNIQUE: Axial computed tomographic angiography images of the chest with intravenous contrast. CTDI is 16.62 mGy and DLP is 324.41 mGy-cm. Automated exposure control was utilized for the study. A dose lowering technique was utilized adhering to the principles of ALARA. MIP reconstructed images were created and reviewed. COMPARISON: 01/05/2024 FINDINGS: Pulmonary arteries: No pulmonary embolism is seen. Aorta: There are atherosclerotic changes.. No thoracic aortic aneurysm. Lungs: There is a 2.4 cm spiculated nodule noted at the left lung apex. There are emphysematous changes.. Pleural space: No significant effusion. No pneumothorax. Heart: The heart is not enlarged but contains coronary artery calcifications.. Bones/joints: There are degenerative changes in the spine. Again noted is a compression fracture of the superior endplate of T8 with anterior wedging. There is also anterior wedging of the T7 vertebral body.. Soft tissues: Unremarkable. Lymph nodes: No enlarged lymph nodes. IMPRESSION: No pulmonary embolism is seen. There are emphysematous changes.. Again noted, there is a 2.4 cm spiculated nodule noted at the left lung apex. This is suspicious for a pulmonary neoplasm. This can be further evaluated with use of a nonemergent PET scan. Electronically signed by: Satish Broussard MD 03/02/24 02:[address] 03/01/24 23:09 Exam(s): CT EXTREMITY LEFT LOWER With Contrast IV Amt: 120 ml EXAM: CT Left Lower Extremity With Intravenous Contrast CLINICAL HISTORY: Reason for exam: swelling. TECHNIQUE: Axial computed tomography images of the left lower extremity with intravenous contrast. CTDI is 16.62 mGy and DLP is 324.41 mGy-cm. Automated exposure control was utilized for the study. A dose lowering technique was utilized adhering to the principles of ALARA. CONTRAST: Patient received 120 ml of IV contrast COMPARISON: No relevant prior studies available. FINDINGS: Bones/joints: No acute fracture. No dislocation. There is osteopenia. Soft tissues: There is soft tissue swelling and edema. In the subcutaneous fat of the posterior calf, there is a hyperechoic inhomogeneous lesion measuring 5.9 x 3.5 x 7.1 cm. IMPRESSION: There is soft tissue swelling and edema. In the subcutaneous fat of the posterior calf, there is a hyperechoic inhomogeneous lesion measuring 5.9 x 3.5 x 7.1 cm. This may represent a hematoma. Electronically signed by: Satish Broussard MD 03/02/24 01:59 AM Venous Doppler Study 03/01/24 23:16 Exam(s): US VENOUS BILATERAL LOWER EXTREMITIES EXAM: US Duplex Bilateral Lower Extremities Veins CLINICAL HISTORY: Reason for exam: worsening leg swelling. TECHNIQUE: Real-time duplex ultrasound scan of the bilateral lower extremity veins integrating B-mode two-dimensional vascular structure, Doppler spectral analysis, color flow Doppler imaging and compression. COMPARISON: No relevant prior studies available. FINDINGS: Right deep veins: No DVT in the right common femoral, femoral, proximal deep femoral or popliteal veins. The veins demonstrate normal color flow, are normally compressible, with normal phasic flow and/or augmentation response. Right superficial veins: No thrombus in the visualized right great saphenous vein. Left deep veins: No DVT in the left common femoral, femoral, proximal deep femoral or popliteal veins. The veins demonstrate normal color flow, are normally compressible, with normal phasic flow and/or augmentation response. Left superficial veins: No thrombus in the visualized left great saphenous vein. Soft tissues: There is soft tissue edema. In the left posterior calf, in the subcutaneous tissues, there is a inhomogeneous 5.0 x 3.3 x 6.0 cm lesion. IMPRESSION: No ultrasound evidence of deep venous thrombosis in the lower extremities. . In the left posterior calf, the subcutaneous tissues, there is a inhomogeneous 5.0 x 3.3 x 6.0 cm lesion. It is of unknown etiology. It may represent a hematoma. Electronically signed by: Satish Broussard MD 03/02/24 01:56 AM Discharge Plan Visit Data Chief Complaint: Back Injury/Pain Stated Complaint: Back Pain, Fall, Leg Pain ED Provider: Mary Benavidez Discharge Problem: Hematoma of left lower extremity, Cellulitis of right leg, Fall, Anticoagulated Patient Disposition: Admitted As Inpatient Discharge Instructions Interventions: ED Discharge Assessment Last Done: 03/02/24 01:15
[2024-03-01] MEDS: cefTRIAXone SODIUM 2,000 MG/50 ML BAG IV STA (22:33)
[2024-03-01] MEDS: SODIUM CHLORIDE 0.9% 1,000 ML IV SCH (22:42)
[2024-03-01] MEDS: MoRPHine SULFATE 2 MG/ML CARP IV STA (22:42)
[2024-03-01] MEDS: SODIUM CHLORIDE 0.9% 1,000 ML IV ONE (22:43)
[2024-03-01 22:48] LABS: Magnesium 1.6 mg/dl (1.7-2.4)
--- NOTE | 2024-03-01 23:02 | History & Physical Report ---
Date of Service March 01, 2024 Assessment & Plan (1) SOB (shortness of breath): Plan: Acute on chronic hypoxemic, hypercapnic respiratory failure Underlying pulm hypertension Multifactorial: COPD exacerbation CHF exacerbation, history of diastolic dysfunction, right-sided heart failure symptoms Deconditioning LLE cellulitis/traumatic hematoma left in the setting of Coumadin Rx hx CAD status post stent PAF on Coumadin, INR slightly subtherapeutic valvular heart disease (mild MR, moderate TR) hypertension, slight elevated hyperlipidemia, on statin Rx lung nodule likely malignancy, patient refused workup as per outpatient [facility] 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 ISS BG goal 1 10-1 40, carb count coverage, DM education Nicotine replacement therapy as needed PT OT eval once medically stable Consider palliative care consult to discuss goals of care given chronic medical conditions and patient noncompliance with medical regimen. DVT prophylaxis. SCDs if INR less than 2 while Coumadin hold RE LLE hematoma DNR Patient requests for daughter to be given updates regarding care. Ms. Jo Ann Mohamud, contact #[phone]. Total critical care time was 45 minutes. Text document was generated using [employer] voice recognition software. It may contain grammatical or spelling errors. Kindly contact undersigned for clarification of any documentation item in question. History of Present Illness Chief Complaint: Fall, shortness of breath, leg swelling Primary Care Provider: Khoa Hui MD History obtained from patient and records. Medical history significant for chronic diastolic heart failure (EF 60 to 65%, TTE 2023), CAD status post stent, PAF on Coumadin, valvular heart disease (mild MR, moderate TR), hypertension, hyperlipidemia, COPD, lung nodule, pulmonary hypertension, prediabetes, bladder cancer status post surgery, ongoing tobacco abuse. Recent confinement 3 weeks ago for respiratory failure secondary to COPD exacerbation. Moderate pulmonary hypertension on updated echo. Patient discharged on higher dose of Lasix for leg swelling. Patient refused PT and OT evaluations during confinement. Patient discharged on home O2. Patient deemed high risk for readmission as per discharge note. Patient not fully well upon returning home. Persistent sinus drainage. Still feeling weak. Patient had worsening sticky cough the last few days. Unable to expectorate. Denies aspiration. Both legs more swollen than usual. Left leg redder than usual. Outpatient course of Bactrim prescribed for possible cellulitis. Patient noncompliant with home health recommendations. Subsequent fall today with some trauma on the left calf. Transient hypoxemia O2 sats of 80s noted at the ER. 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 levofloxacin [From Levaquin] Allergy Intermediate ITCHY Verified 02/06/24 16:24 HIVES ON TRUNK AND LEGS nickel Allergy Mild Rash. Verified 02/06/24 16:24 NAI Inhibitors AdvReac Intermediate Cough. Verified 02/06/24 16:24 influenza virus vaccine ts AdvReac Intermediate SINUS Verified 02/06/24 16:24 [id number] (36 mos,up) PRESSURE/DRAINAGE [From Fluarix] Home Medications Medication Instructions Recorded Confirmed Type nitroglycerin 0.4 mg sublingual 0.4 mg sublingual DIRECTED PRN 04/19/19 03/01/24 History tablet Chest Pain sotalol 80 mg tablet 80 mg PO BID 04/19/19 03/01/24 History aspirin 81 mg tablet,delayed 81 mg PO QAM 01/17/23 03/01/24 History release azelastine 137 mcg (0.1 %) nasal 1 spray intranasal AMHS 01/17/23 02/06/24 History spray spironolactone 25 mg tablet 25 mg PO QAM 01/17/23 03/01/24 History warfarin 2.5 mg tablet 2.5 mg PO DAILY 01/17/23 03/01/24 History albuterol sulfate 2.5 mg/3 mL 2.5 mg inhalation DIRECTED PRN 06/26/23 03/01/24 History (0.083 %) solution for nebulization Shortness Of Breath Or Wheezing isosorbide mononitrate 30 mg 30 mg PO QAM #30 tabs 06/27/23 03/01/24 Rx tablet,extended release 24 hr albuterol sulfate 90 mcg/actuation 2 inh inhalation Q4H PRN Shortness 01/02/24 03/01/24 History aerosol inhaler Of Breath Or Wheezing budesonide 160 mcg-glycopyr 9 2 inh inhalation AMHS #1 inhaler 02/09/24 03/01/24 Rx mcg-formot 4.8 mcg/actuation HFA inhaler (Breztri Aerosphere) furosemide 20 mg tablet 40 mg (2 x 20 mg) PO QAM #60 tabs 02/09/24 03/01/24 Rx sulfamethoxazole 800 2 tab PO DAILY 03/01/24 03/01/24 History mg-trimethoprim 160 mg tablet Past Med/Surg History Problem List (Updated 02/07/24 @ 12:08 by Thomas Moulton DO) Cellulitis of left lower extremity Cor pulmonale Pulmonary hypertension Bilateral lower leg cellulitis Bilateral lower extremity edema Left upper lobe pulmonary nodule Acute on chronic respiratory failure Cellulitis (Acute) Fluid overload (Acute) Anticoagulated on Coumadin (Acute) Pedal edema (Acute) SOB (shortness of breath) (Acute) COPD exacerbation (Acute) Hypoxia (Acute) NSTEMI (non-ST elevated myocardial infarction) Elevated brain natriuretic peptide (BNP) level (Acute) Elevated troponin (Acute) Substernal chest pain (Acute) Chest pain Acute hypoxemic respiratory failure Dyspnea (Acute) Hypoxia (Acute) Acute exacerbation of chronic obstructive pulmonary disease (COPD) (Acute) Venous insufficiency (Chronic) COPD (chronic obstructive pulmonary disease) (Chronic) Prediabetes (Chronic) Hyperlipidemia (Chronic) Hypotension (Acute) Tobacco abuse (Chronic) S/P right coronary artery (RCA) stent placement (Chronic) CAD (coronary artery disease), [place] coronary artery (Chronic) Emphysema of lung (Chronic) Hypertension (Chronic) Atrial fibrillation with rapid ventricular response (Acute) Medical History (Updated 02/07/24 @ 12:08 by Thomas Moulton DO) Paroxysmal atrial fibrillation Surgical History H/O: hysterectomy S/P appendectomy Family History Other Colon cancer Social History Smoking Status: Light tobacco smoker Tobacco Type: Cigarettes Cigarettes Per Day: occasional smoker- somedays pt does not smoke, other days smokes 3-5; Second Hand Exposure: No; Do You Dip or Chew Tobacco: No; Hx Alcohol Use: Yes Alcohol type: wine Alcohol Intake Frequency Comment: 1-2 glasses of wine 3-5 days per week Hx Substance Use: No Preferred Language: [place] Communication Ability: Effective Green Marketing Specialist Required: No Beliefs That Will Affect Care: None Current Living Situation: Alone Feels Safe at Home: Yes Assistive Devices: None Review of Systems Review of Systems: As per HPI, all other systems reviewed and negative Physical Exam Physical Exam: GENERAL: Slightly uncomfortable, slightly hard of hearing, audible wheezing, episodic tachypnea SKIN: Normal color, warm HEENT: [place] palpebral conjunctivae, no ptosis, dry buccal mucosa, nasal cannula in place NECK : Supple, no tenderness CHEST : Decreased breath sounds, scattered expiratory wheezes, no tenderness HEART : RRR, no obvious murmurs ABDOMEN: Some distention, nontender EXTREMITIES : Bilateral LE swelling, painful hematoma left calf, no other conspicuous deformities noted NEUROLOGIC : Coherent, no facial asymmetry, slightly hard of hearing, no other gross focality Results & Data Results & Data Vital Signs (Past 12 Hours) Vital Signs Temp Pulse Pulse Resp BP BP Pulse Ox 03/01/24 22:00 59 L 18 138/63 98 03/01/24 20:28 65 03/01/24 20:00 67 24 133/85 97 03/01/24 19:04 36.9 C 72 18 150/87 H 95 O2 Del Method O2 Flow Rate 03/01/24 22:00 Room Air 03/01/24 20:28 03/01/24 20:00 Nasal Cannula 3 03/01/24 19:04 Nasal Cannula 3 Laboratory Results Laboratory Results WBC 13.86 K/ul (4.8-10.8) H 03/01/24 19:30 RBC 4.00 M/uL (4.20-5.40) L 03/01/24 19:30 Hgb 12.2 g/dl (12.0-16.0) 03/01/24 19:30 POC Hgb 12.9 g/dl (12.0-16.0) 03/01/24 19:35 Hct 38.4 % (37.0-47.0) 03/01/24 19: POC Hct 38 % (37-47) 03/01/24 19:35 MCV 96.0 fL (80.0-100.0) 03/01/24 19: MCH 30.5 pg (25.0-34.0) 03/01/24 19: MCHC 31.8 g/dL (32.0-36.0) L 03/01/24 19: RDW Std Deviation 48.8 fL (36.4-46.3) H 03/01/24 19: RDW Coeff of Anais 13.8 % (11.5-14.5) 03/01/24 19: Plt Count 165 K/uL (130-400) 03/01/24 19:30 MPV 11.7 fL (9.4-12.4) 03/01/24 19:30 Immature Gran % (Auto) 0.5 % 03/01/24 19:30 Neut % (Auto) 82.2 % 03/01/24 19:30 Lymph % (Auto) 8.9 % 03/01/24 19: Page % (Auto) 7.5 % 03/01/24 19:30 Eos % (Auto) 0.7 % 03/01/24 19:30 Baso % (Auto) 0.2 % 03/01/24 19:30 Neut # (Auto) 11.38 K/uL (1.40-6.50) H 03/01/24 19:30 Lymph # (Auto) 1.24 K/uL (1.20-3.40) 03/01/24 19:30 Page # (Auto) 1.04 K/uL (0.11-0.59) H 03/01/24 19:30 Eos # (Auto) 0.10 K/uL (0.00-0.50) 03/01/24 19:30 Baso # (Auto) 0.03 K/uL (0.00-0.20) 03/01/24 19:30 Immature Gran # (Auto) 0.07 K/uL (0.01-0.20) 03/01/24 19:30 PT 18.0 Seconds (9.0-12.0) H 03/01/24 19:30 INR 1.7 (0.9-1.1) H 03/01/24 19:30 POC Sodium 136 mmol/L (135-144) 03/01/24 19:35 Sodium 136 mmol/L (136-145) 03/01/24 19:30 POC Potassium 3.8 mmol/L (3.3-5.0) 03/01/24 19:35 Potassium 3.8 mmol/L (3.5-5.1) 03/01/24 19:30 POC Chloride 93 mmol/L (101-112) L 03/01/24 19:35 Chloride 95 mmol/L (98-107) L 03/01/24 19:30 Carbon Dioxide 36 mmol/L (21-32) H 03/01/24 19:30 POC Total CO2 34 mmol/L (24-31) H 03/01/24 19:35 Anion Gap 5 (3-11) 03/01/24 19:30 POC Anion Gap 14.0 mmol/L (16-25) L 03/01/24 19:35 POC BUN 17 mg/dl (7-18) 03/01/24 19:35 BUN 16 mg/dl (6-23) 03/01/24 19:30 Creatinine 0.64 mg/dl (0.6-1.2) 03/01/24 19:30 POC Creatinine 0.8 mg/dl (0.6-1.3) 03/01/24 19:35 Est Cr Clr Drug Dosing 62.0 ml/min 03/01/24 19:30 Est GFR ( Amer) 97.0 ml/min 03/01/24 19:30 Est GFR (Non-Af Amer) 83.7 ml/min 03/01/24 19:30 BUN/Creatinine Ratio 25.0 (10-20) H 03/01/24 19:30 Glucose 152 mg/dl (70-99(Fasting)) H 03/01/24 19:30 POC Glucose (other) 150 mg/dl (70-99) H 03/01/24 19:35 Calcium 8.5 mg/dl (8.6-10.3) L 03/01/24 19:30 POC Ioniz Calcium [place] 1.08 mmol/l (1.12-1.32) L 03/01/24 19:35 Magnesium 1.6 mg/dl (1.7-2.4) L 03/01/24 19:30 Total Bilirubin 1.3 mg/dl (0.2-1.0) H 03/01/24 19:30 AST 19 U/L (13-39) 03/01/24 19:30 ALT 22 U/L (7-52) 03/01/24 19:30 Alkaline Phosphatase 69 U/L (34-104) 03/01/24 19:30 Total Creatine Kinase 29 U/L (26-192) 03/01/24 19:30 Total Protein 6.2 gm/dl (6.0-8.3) 03/01/24 19:30 Albumin 3.6 gm/dl (3.4-5.0) 03/01/24 19:30 Globulin 2.6 gm/dl (2.5-4.0) 03/01/24 19:30 Albumin/Globulin Ratio 1.4 (0.9-2) 03/01/24 19:30 Blood Type A Positive 03/01/24 19:55 Antibody Screen NEGATIVE 03/01/24 19:55 Impressions Chest X-Ray 03/01/24 19:15 SINGLE VIEW CHEST CLINICAL HISTORY: Trauma FINDINGS: An AP, portable, upright chest radiograph is compared to study dated 02/06/2024 and correlated with chest CT dated 01/05/2024. The cardiomediastinal silhouette is unremarkable noting atherosclerotic calcification of the thoracic aorta. Advanced emphysema and chronic interstitial thickening is similar to previous. There is bibasilar scarring/atelectasis. A left apical pulmonary lesion is again noted and was better assessed on the recent chest CT. No airspace consolidation or large pleural effusion is identified. No pneumothorax is seen. The skeletal structures are osteopenic. The bony thorax is grossly intact. IMPRESSION: 1. Advanced emphysematous change with no acute cardiopulmonary abnormality identified. 2. A left apical pulmonary lesion is unchanged and was better assessed on the 01/05/[address] This remains highly suspicious for a pulmonary neoplasm. ACT 112: Negative or not required by law. Electronically signed by: Geo Newman M.D. 03/01/2024 9:[address]: No pulmonary embolism is seen. There are emphysematous changes.. Again noted, there is a 2.4 cm spiculated nodule noted at the left lung apex. This is suspicious for a pulmonary neoplasm. This can be further evaluated with use of a nonemergent PET scan. LLE CT: There is soft tissue swelling and edema. In the subcutaneous fat of the posterior calf, there is a hyperechoic inhomogeneous lesion measuring 5.9 x 3.5 x 7.1 cm. This may represent a hematoma. LE venous Dopplers: No ultrasound evidence of deep venous thrombosis in the lower extremities. . In the left posterior calf, the subcutaneous tissues, there is a inhomogeneous 5.0 x 3.3 x 6.0 cm lesion. It is of unknown etiology. It may represent a hematoma. Diagnostic Findings EKG as per my interpretation : Rate 70, NSR, normal axis, incomplete RBBB, no ischemia
[2024-03-01] MEDS ORDERED: PROMETHAZINE 6.25 MG/50.25 ML BAG IV PRN (23:07)
[2024-03-01] MEDS ORDERED: hydrOXYzine HCl 10 MG TAB PO PRN (23:07)
[2024-03-01] MEDS ORDERED: traMADol HCL 50 MG TABLET PO PRN (23:07)
[2024-03-01] MEDS: ALBUT/IPRATROP 3MG/0.5MG NEB 3 ML VIAL NEB STA (23:34)
[2024-03-01] MEDS: FUROSEMIDE INJ 20 MG/2 ML VIAL IV ONE (23:34)
--- NOTE | 2024-03-01 23:42 | CT Scan Report ---
Exam(s): CT L SPINE EXAM: CT Lumbar Spine Without Intravenous Contrast CLINICAL HISTORY: Reason for exam: fall, low back pain. TECHNIQUE: Axial computed tomography images of the lumbar spine without intravenous contrast. Automated exposure control was utilized for the study. A dose lowering technique was utilized adhering to the principles of ALARA. COMPARISON: No relevant prior studies available. FINDINGS: The vertebral body heights are maintained. The lumbar lordosis is preserved. There is no spondylolisthesis. The posterior elements are maintained, without evidence of acute fracture. The pedicles are intact. Multilevel lumbar spondylosis and degenerative disc disease. IMPRESSION: No acute fracture or subluxation of the lumbar spine. Electronically signed by: Neal Lacy MD 03/01/24 23:41 PM
--- NOTE | 2024-03-01 23:44 | CT Scan Report ---
Exam(s): CT HEAD Without Contrast EXAM: CT Head Without Intravenous Contrast CLINICAL HISTORY: Reason for exam: fall, coumdin, ? head injury. TECHNIQUE: Axial computed tomography images of the head/brain without intravenous contrast. Automated exposure control was utilized for the study. A dose lowering technique was utilized adhering to the principles of ALARA. COMPARISON: No relevant prior studies available. FINDINGS: No acute intracranial hemorrhage. No midline shift or mass effect. The territorial vega-white matter differentiation is maintained throughout. The ventricles and sulci are commensurate with age. The visualized orbits appear grossly unremarkable. The calvarium is intact. The visualized paranasal sinuses and mastoid air cells are grossly clear. IMPRESSION: No acute intracranial hemorrhage, midline shift, or mass effect. Electronically signed by: Neal Lacy MD 03/01/24 23:44 PM
[2024-03-01 23:46] LABS: Base Excess VBG 8.8 mEq/L; HCO3 VBG 38 mmol/L; Oxygen Saturation VBG < 60.0 %; PCO2 VBG 78 mmHg (38-50)
[2024-03-01 23:53] LABS: Hematocrit (blood only) 38.2 % (37.0-47.0); Hemoglobin 12.2 g/dl (12.0-16.0)
[2024-03-01] MEDS: methylPREDNISolone 20 MG in SYRINGE 0 ML IV ONE (23:56)
[2024-03-01] MEDS: DOXYCYCLINE HYCLATE 100 MG in DEXTROSE 5% MINI-B 100 ML IV STA (23:57)
[2024-03-02] MEDS: OPTIRAY 320 125ml IV ONE (00:42)
[2024-03-02] MEDS ORDERED: GLUCOSE 40% GEL 15 GM TUBE PO PRN (01:11)
[2024-03-02] MEDS ORDERED: GLUCOSE 10 TAB/TUBE PO PRN (01:11)
[2024-03-02] MEDS ORDERED: CARBOHYDRATES FOR HYPOGLYCEMIA PO PRN (01:11)
[2024-03-02] MEDS ORDERED: GLUCAGON FOR INJ 1 MG VIAL SQ PRN (01:11)
[2024-03-02] MEDS ORDERED: DEXTROSE 50% 50 ML SYRINGE IV PRN (01:11)
[2024-03-02 01:28] LABS: Adenovirus PCR Not Detected (NotDetected); Bordetella parapertussis PCR Not Detected (NotDetected); Bordetella pertussis PCR Not Detected (NotDetected); Chlamydia pneumoniae PCR Not Detected (NotDetected); Coronavirus 229E PCR Not Detected (NotDetected); Coronavirus CoV-2 (COVID19)PCR Not Detected (NotDetected); Coronavirus HKU1 PCR Not Detected (NotDetected); Coronavirus NL63 PCR Not Detected (NotDetected); Coronavirus OC43PCR Not Detected (NotDetected); Human Metapneumovirus PCR Not Detected (NotDetected); Influenza A PCR Not Detected (NotDetected); Influenza B PCR Not Detected (NotDetected); Mycoplasma pneumoniae PCR Not Detected (NotDetected); Parainfluenza Virus 1 PCR Not Detected (NotDetected); Parainfluenza Virus 2 PCR Not Detected (NotDetected); Parainfluenza Virus 3 PCR Not Detected (NotDetected); Parainfluenza Virus 4 PCR Not Detected (NotDetected); Respiratory Syncytial VirusPCR Not Detected (NotDetected); Rhinovirus/Enterovirus PCR Not Detected (NotDetected)
--- NOTE | 2024-03-02 01:56 | Ultrasound Report ---
Exam(s): US VENOUS BILATERAL LOWER EXTREMITIES EXAM: US Duplex Bilateral Lower Extremities Veins CLINICAL HISTORY: Reason for exam: worsening leg swelling. TECHNIQUE: Real-time duplex ultrasound scan of the bilateral lower extremity veins integrating B-mode two-dimensional vascular structure, Doppler spectral analysis, color flow Doppler imaging and compression. COMPARISON: No relevant prior studies available. FINDINGS: Right deep veins: No DVT in the right common femoral, femoral, proximal deep femoral or popliteal veins. The veins demonstrate normal color flow, are normally compressible, with normal phasic flow and/or augmentation response. Right superficial veins: No thrombus in the visualized right great saphenous vein. Left deep veins: No DVT in the left common femoral, femoral, proximal deep femoral or popliteal veins. The veins demonstrate normal color flow, are normally compressible, with normal phasic flow and/or augmentation response. Left superficial veins: No thrombus in the visualized left great saphenous vein. Soft tissues: There is soft tissue edema. In the left posterior calf, in the subcutaneous tissues, there is a inhomogeneous 5.0 x 3.3 x 6.0 cm lesion. IMPRESSION: No ultrasound evidence of deep venous thrombosis in the lower extremities. . In the left posterior calf, the subcutaneous tissues, there is a inhomogeneous 5.0 x 3.3 x 6.0 cm lesion. It is of unknown etiology. It may represent a hematoma. Electronically signed by: Satish Broussard MD 03/02/24 01:56 AM
--- NOTE | 2024-03-02 02:00 | CT Scan Report ---
Exam(s): CT EXTREMITY LEFT LOWER With Contrast IV Amt: 120 ml EXAM: CT Left Lower Extremity With Intravenous Contrast CLINICAL HISTORY: Reason for exam: swelling. TECHNIQUE: Axial computed tomography images of the left lower extremity with intravenous contrast. CTDI is 16.62 mGy and DLP is 324.41 mGy-cm. Automated exposure control was utilized for the study. A dose lowering technique was utilized adhering to the principles of ALARA. CONTRAST: Patient received 120 ml of IV contrast COMPARISON: No relevant prior studies available. FINDINGS: Bones/joints: No acute fracture. No dislocation. There is osteopenia. Soft tissues: There is soft tissue swelling and edema. In the subcutaneous fat of the posterior calf, there is a hyperechoic inhomogeneous lesion measuring 5.9 x 3.5 x 7.1 cm. IMPRESSION: There is soft tissue swelling and edema. In the subcutaneous fat of the posterior calf, there is a hyperechoic inhomogeneous lesion measuring 5.9 x 3.5 x 7.1 cm. This may represent a hematoma. Electronically signed by: Satish Broussard MD 03/02/24 01:59 AM
[2024-03-02 02:04] LABS: PO2 VBG 24 mmHg
--- NOTE | 2024-03-02 02:05 | CT Scan Report ---
Exam(s): CTA CHEST IV Amt: 120 ml EXAM: CT Angiography Chest With Intravenous Contrast CLINICAL HISTORY: Reason for exam: sob. TECHNIQUE: Axial computed tomographic angiography images of the chest with intravenous contrast. CTDI is 16.62 mGy and DLP is 324.41 mGy-cm. Automated exposure control was utilized for the study. A dose lowering technique was utilized adhering to the principles of ALARA. MIP reconstructed images were created and reviewed. COMPARISON: 01/05/2024 FINDINGS: Pulmonary arteries: No pulmonary embolism is seen. Aorta: There are atherosclerotic changes.. No thoracic aortic aneurysm. Lungs: There is a 2.4 cm spiculated nodule noted at the left lung apex. There are emphysematous changes.. Pleural space: No significant effusion. No pneumothorax. Heart: The heart is not enlarged but contains coronary artery calcifications.. Bones/joints: There are degenerative changes in the spine. Again noted is a compression fracture of the superior endplate of T8 with anterior wedging. There is also anterior wedging of the T7 vertebral body.. Soft tissues: Unremarkable. Lymph nodes: No enlarged lymph nodes. IMPRESSION: No pulmonary embolism is seen. There are emphysematous changes.. Again noted, there is a 2.4 cm spiculated nodule noted at the left lung apex. This is suspicious for a pulmonary neoplasm. This can be further evaluated with use of a nonemergent PET scan. Electronically signed by: Satish Broussard MD 03/02/24 02:04 AM
[2024-03-02 02:28] LABS: Base Excess VBG 11.4 mEq/L; HCO3 VBG 40 mmol/L; Oxygen Saturation VBG < 60.0 %; PCO2 VBG 73 mmHg (38-50); PO2 VBG < 20 mmHg; pH VBG 7.35 (7.36-7.41)
[2024-03-02 02:30] LABS: Appearance Urine Clear (Clear); Bilirubin Urine Negative (Negative); Blood Urine Negative (Negative); Color Urine Yellow; Glucose Urine UA Negative (Negative); Ketones Urine Negative (Negative); Leukocyte Esterase Urine Negative (Negative); Nitrite Urine Negative (Negative); Protein Urine Negative (Negative); Specific Gravity Urine 1.024 (1.000-1.030); Urobilinogen Urine Negative (Negative); pH Urine 6.5 (4.5-7.5)
[2024-03-02 02:38] LABS: Basophils # (auto) 0.03 K/uL (0.00-0.20); Basophils % (auto) 0.3 %; Eosinophils # (auto) 0.08 K/uL (0.00-0.50); Eosinophils % (auto) 0.7 %; Hematocrit (blood only) 37.7 % (37.0-47.0); Hemoglobin 12.1 g/dl (12.0-16.0); Immature Granulocytes # (auto) 0.04 K/uL (0.01-0.20); Immature Granulocytes % (auto) 0.3 %; Lymphocytes # (auto) 0.64 K/uL (1.20-3.40); Lymphocytes % (auto) 5.5 %; Mean Corpuscular Hemoglobin 30.5 pg (25.0-34.0); Mean Corpuscular Hgb Conc 32.1 g/dL (32.0-36.0); Mean Platelet Volume 11.5 fL (9.4-12.4); Monocytes # (auto) 0.69 K/uL (0.11-0.59); Monocytes % (auto) 5.9 %; Neutrophils # (auto) 10.16 K/uL (1.40-6.50); Neutrophils % (auto) 87.3 %; Platelet Count 141 K/uL (130-400); RDW Coefficient of Variation 13.6 % (11.5-14.5); RDW Standard Deviation 47.5 fL (36.4-46.3); Red Blood Count 3.97 M/uL (4.20-5.40); White Blood Count 11.64 K/ul (4.8-10.8)
[2024-03-02 02:52] LABS: BUN Creatinine Ratio 25.4 (10-20); Calcium 8.7 mg/dl (8.6-10.3); Creatinine Clr Calc Pharmacy 55.9 ml/min; Est GFR (African American) 92.6 ml/min; Est GFR (Non-African American) 79.9 ml/min; Magnesium 1.7 mg/dl (1.7-2.4); Potassium 4.1 mmol/L (3.5-5.1)
[2024-03-02] MEDS: INSULIN ASPART PER UNIT CHARGE SC SCH (03:00)
[2024-03-02 03:02] LABS: INR 1.7 (0.9-1.1); Prothrombin Time 17.9 Seconds (9.0-12.0)
[2024-03-02] MEDS ORDERED: SODIUM CHLORIDE 0.65% NA SOLN 45 ML (OCEAN) PRN (03:09)
[2024-03-02] MEDS: MAGNESIUM SULFATE / D5W 1 GM/100 ML BAG IV SCH (03:18)
--- OUTSIDE RECORDS SUMMARY | 2024-03-02 06:25 | External Medical Summary | Summary of Care ---
Author Name Unknown Organization [facility] Address [address] [place] [address] Phone [phone] Care Team Providers Care Downstairs Maid Name Role Phone Khoa Hui MD Primary Care Provider + Reason for Visit * Reason Onset Date Comments Follow Up 02/28/2024 O2 orders Encounter Details Date Type Department Care Team (Late st Contact Info) Description 02/28/2024 Telephone Pulmonary Medicine Raymon Hagan [address] [phone] Segundo Clarke MD [address] [phone] Follow Up (O2 orders) Allergies Active Allergy Reactions Criticality Noted Date Comments Marlo Inhibitors Cough 02/23/2009 Valsartan Edema face/lips/tongue High 05/17/2012 Dog Dander Other (Please comment) High 06/11/2015 Congestion, SOB Influenza Vac Split Quad Other (Please comment) 03/15/2012 Sinus pressure, drainage after flu shot on 2 occasions Levofloxacin 10/07/2013 Itching; hives on trunk and lower extremities Nickel Rash 05/20/2008 documented as of this encounter (statuses as of 02/29/2024) Medications Medication Sig Dispensed Refills Start Date End Date Status Aspirin EC 81 MG Oral Tablet Delayed Release Take 1 Tablet by mouth in the morning. 01/21/2022 Active Azelastine HCl 0.1 % Nasal Solution (Astelin)Indications: Rhinitis, nonallergic Administer 1 [place] into nostril in the morning and 1 [place] before bedtime. 90 mL 3 04/05/2023 Active Isosorbide Mononitrate ER 30 MG Oral Tablet Extended Release 24 Hour (Imdur)Indications:CA D in [place] artery Take 1 Tablet by mouth in the morning. 90 Tablet 3 07/05/2023 Active Nitroglycerin 0.4 MG Sublingual Tablet Sublingual (Nitrostat)Indication s:CAD in [place] artery Place 1 Tablet under the tongue [...] 130/80,Chronic diastolic heart failure (HCC),Localized edema Take 2 Tablets by mouth in the morning. In the morning.. 180 Tablet 2 02/21/2024 Active Breztri Aerosphere 160-9-4.8 MCG/ACT Inhalation Aerosol (Budeson-Glycopyrrol- Formoterol)Indication s:COPD, group D, by GOLD 2017 classification ([facility]) Inhale 2 Puffs by mouth in the morning and 2 Puffs before bedtime. 32.1 g 3 02/21/2024 Active ProAir HFA 108 (90 Base) MCG/ACT Inhalation Aerosol SolutionIndications:C OPD, group D, by GOLD 2017 classification ([facility]) Inhale 2 Puffs by mouth every 4 hours as needed for Cough, Shortness of Breath or Wheezing. 54 g 3 02/21/2024 Active documented as of this encounter (statuses as of 02/29/2024) Active Problems Problem Noted Date Diagnosed Date Chronic respiratory failure with hypoxia 024 COPD, group D, by GOLD 2017 classification 05/16 Overview: Per COPD GOLD Classification Bladder mass 01/05/2022 Ureteral lesion, [place], right 01/05/2022 Chronic diastolic heart failure 07/01/2021 Pulmonary hypertension 07/01/2021 Lung nodule 07/01/2021 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 10/25/2018 Prediabetes 07/31/2018 Elevated TSH 07/31/2018 CAD in [place] artery 03/20/2015 Venous insufficiency 03/12/2014 Overview: 03/18 US --no DVT LLE Paroxysmal atrial fibrillation 02/04/2014 Overview: 01/16-[facility] hosp w/rapid response. Change to toprol. Start xarelto. 2007? converted with IV diltiazem Routine general medical exam ination at a health care facility 09/05/2013 Overview: 02/26 TTE [facility] normal EF Grade II Ghosh DYs, mild LVH, elev PAP 42, mil-mod TR, mild MR 07/28 6MWT 85%.--declined O2. (does she use [...] as of this encounter (statuses as of 02/29/2024) Resolved Problems Problem Noted Date Diagnosed Date [...] as of this encounter (statuses as of 02/29/2024) Immunizations Name Administration Dates Next Due COVID-19 mRNA, LNP-s, No Pre serve, 2-Dose Series (6connect) 01/26/2022,03/08/2021,08/20/2020,07/30 Pneumococcal Polysaccharide PPV23 (Pneumovax) 05/13/2009 Seasonal Influenza, Trivalen t, (IIV3), with Preserv, (Fluzone) 03/15/2011,03/09/2010,02/19/2009 TDAP, Age 7 and older, IM (Adacel) 09/14/2011 documented as of this encounter Social History Tobacco Use Types Packs/Day Years Used Date Smoking Tobacco: Former Cigarettes 1 64 0 02/06/2024 - 11/12/1959 Smokeless Tobacco: Never Comments:02/17/23 currently smoking 3-5 cig/day. Alcohol Use Standard Drinks/Week Comments Yes 0 [...] encounter Miscellaneous Notes * Telephone Encounter - Sandra Otto LPN - 02/29/2024 10:41 AM EDT Per Geo @ [facility] they do not need PFT's or POC. [employer] has everything they need to proceed. However after Geo and Opal from [facility] spoke with the pt's daughter, daughter is not sure if they even want to switch suppliers to [employer] from [facility]. * Telephone Encounter - Jalyn Villasenor OSA - 02/29/2024 10:19 AM EDT Daughter calling in to request that the last PFT's patient had need to be sent to [facility] along with the POC. Please advise. Fax number [phone] Thank you! * Telephone Encounter - Sarina Valiente LPN - 02/29/2024 9:56 AM EDT Daughter advised. She is going to decide what she wants to do. And will call back and let us know so we can proceed with this order. * Telephone Encounter - Sarina Valiente LPN - 02/28/2024 3:34 PM EDT I spoke with the daughter and her concerns are that they will have to change DME's and they broughtpoc to her home and it was 5 lbs and this is way too heavy for the patient to carry. So I called [employer] and they have the [employer]ogen which is 5.4 lbs. Will call daughter back and advise. * Telephone Encounter - Jalyn Villasenor OSA - 02/28/2024 1:59 PM EDT Pt Daughter returning phone call - please contact her anytime this afternoon. Thank you * Telephone Encounter - Sarina Valiente LPN - 02/28/2024 1:18 PM EDT Left message for patients daughter (Jo Ann) to discuss recent orders for poc Patient stated that daughter isn't sure what she wants to do at this time. Per [facility] to get the poc .She will have to switch to them from her current DME which is [employer] . [facility] is aware. documented in this encounter Plan of Treatment Upcoming Encounters Date Type Department Care Team (Late st Contact Info) Description 04/26/2024 10:30 AM EST Office Visit Cardiology, [facility] [address] [facility] [place] [address] Kely Pepper PA-C [address] [place] [phone] 05/17/2024 12:30 PM EST Imaging Radiology [facility] 1st Floor, [place] [address] [address] 05/20/2024 12:40 PM EST Office Visit Pulmonary Medicine, [facility] [address] [place] [address] Segundo Clarke MD [address] [address] 08/30/2024 12:20 PM EDT Office Visit Family Practice [facility] [address] [address] Khoa Hui MD [address] [address] 03/18/2025 1:40 PM EDT Office Visit Family [facility] [address] [address] Khoa Hui MD [address] [address] Health Maintenance Due Date Last Done Comments Alpha-1 Antitrypsin 1961 Pneumococcal Vaccine: 65+ Years (2 of 2 - PCV) 05/13/2010 05/13/2009 Adult Wellness Visit 03/31/2018 03/31/2017 DXA Scan 09/18/2018 09/19/2011, 09/19/2011 Depression Screening 10/26/2019 10/25/2018 *ADVANCE DIRECTIVE NOT ON FILE 07/20/2021 DTap/Tdap Vaccines (2 - Td or Tdap) 09/13/2021 09/14/2011 HbA1c 07/25/2023 07/25/2022, 09/2019, 09/27/2018 COVID-19 Vaccine ( season) 2024 01/26/2022, 03/08/2021, 08/20/2020, Additional history exists Influenza Vaccine (FLU shot) (#1) 2024 03/15/2011, 03/09/2010, 02/19/2009 GFR 07/12/2024 07/12/2023, 09/03, 09/09/2022, Additional history exists O2 ASSESSMENT COMPLETED IN PAST YEAR FOR COPD 02/20/2025 02/21/2024 Albumin/Creatinine Ratio 07/26/2025 07/26/2022 HPV (Gardasil) Vaccine [...] Advance Directives occurred with: Patient Care Teams Downstairs Maid Relationship Specialty Start Date End Date Khoa Hui MD [address] [place] [phone] PCP - General Family Medicine 05/19/14 documented as of this encounter
--- OUTSIDE RECORDS SUMMARY | 2024-03-02 06:25 | External Medical Summary | Summary of Care ---
Author Name Unknown Organization [facility] Address [address] [place] [address] Phone [phone] Care Team Providers Care Auctioneer Tobacco Name Role Phone Khoa Hui MD Primary Care Provider + Reason for Visit * Reason Onset Date Comments Home Health 02/27/2024 Encounter Details Date Type Department Care Team (Late st Contact Info) Description 02/27/2024 Telephone Family Practice [facility] [address] [place] [address] Khoa Hui MD [address] [place] [address] Home Health Allergies Active Allergy Reactions Criticality Noted Date Comments Marlo Inhibitors Cough 02/23/2009 Valsartan Edema face/lips/tongue High 05/17/2012 Dog Dander Other (Please comment) High 06/11/2015 Congestion, SOB Influenza Vac Split Quad Other (Please comment) 03/15/2012 Sinus pressure, drainage after flu shot on 2 occasions Levofloxacin 10/07/2013 Itching; hives on trunk and lower extremities Nickel Rash 05/20/2008 documented as of this encounter (statuses as of 03/01/2024) Medications Medication Sig Dispensed Refills Start Date End Date Status Aspirin EC 81 MG Oral Tablet Delayed Release Take 1 Tablet by mouth in the morning. 01/21/2022 Active Azelastine HCl 0.1 % Nasal Solution (Astelin)Indications: Rhinitis, nonallergic Administer 1 [place] into nostril in the morning and 1 [place] before bedtime. 90 mL 3 04/05/2023 Active Isosorbide Mononitrate ER 30 MG Oral Tablet Extended Release 24 Hour (Imdur)Indications:CA D in [place] artery Take 1 Tablet by mouth in the morning. 90 Tablet 3 07/05/2023 Active Nitroglycerin 0.4 MG Sublingual Tablet Sublingual (Nitrostat)Indication s:CAD in [place] artery Place 1 Tablet under the tongue [...] group D, by GOLD 2017 classification ([facility]) Inhale 2 Puffs by mouth in the morning and 2 Puffs before bedtime. 32.1 g 3 02/21/2024 Active ProAir HFA 108 (90 Base) MCG/ACT Inhalation Aerosol SolutionIndications:C OPD, group D, by GOLD 2017 classification ([facility]) Inhale 2 Puffs by mouth every 4 hours as needed for Cough, Shortness of Breath or Wheezing. 54 g 3 02/21/2024 Active documented as of this encounter (statuses as of 03/01/2024) Active Problems Problem Noted Date Diagnosed Date Chronic respiratory failure with hypoxia 024 COPD, group D, by GOLD 2017 classification 05/16 Overview: Per COPD GOLD Classification Bladder mass 01/05/2022 Ureteral lesion, [place], right 01/05/2022 Chronic diastolic heart failure 07/01/2021 Pulmonary hypertension 07/01/2021 Lung nodule 07/01/2021 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 10/25/2018 Prediabetes 07/31/2018 Elevated TSH 07/31/2018 CAD in [place] artery 03/20/2015 Venous insufficiency 03/12/2014 Overview: 03/18 US --no DVT LLE Paroxysmal atrial fibrillation 02/04/2014 Overview: 01/16-[facility] hosp w/rapid response. Change to toprol. Start xarelto. 2007? converted with IV diltiazem Routine general medical exam ination at a health care facility 09/05/2013 Overview: 02/26 TTE [facility] normal EF Grade II Ghosh DYs, mild [...] as of this encounter (statuses as of 03/01/2024) Resolved Problems Problem Noted Date Diagnosed Date [...] as of this encounter (statuses as of 03/01/2024) Immunizations Name Administration Dates Next Due COVID-19 [...] encounter Miscellaneous Notes * Telephone Encounter - Florence Smith LPN - 03/01/2024 10:01 AM EDT Called [facility]. They are scheduled to see patient Monday and can draw lab. Faxed orderto [facility]. * Telephone Encounter - Kely Pepper PA-C - 03/01/2024 8:13 AM EDT Noted. Thanks for update. I have not seen the patient since last March so its difficult for me to weigh in on her current issues, but I agree that she needs labs before we adjust her diuretics * Telephone Encounter - Khoa Hui MD - 02/29/2024 3:01 PM EDT Cardiology (Savita Evgeny) ordered BMP to recheck her kidneys, to make sure they are doing ok with her water pills, which she hasn't done yet. Can home nursing draw? (Orders are on file). If not, she needs to stop by one of our labs Cc: Savita Pepper, thank you/FYI * Telephone Encounter - Florence Smith LPN - 02/28/2024 4:11 PM EDT Called and spoke with patient. Patient at first was very upset she was instructed to go to the ER. She stated the ER does not help her. Patient states her swelling has remained the same since her OV last week. She states she does not feel anymore SOB than normal (patient is SOB at baseline). Patient continues to use oxygen and monitor pulse ox. Patient thanked staff for the call and stated that "all these calls are just too much". Advised patient to call office if symptoms change. PCP-WHITLEYI * Telephone Encounter - Avani Espinoza CRNP - 02/27/2024 4:57 PM EDT Difficult to make recommendation without seeing patient. Her lasix was increased to 40mg. Elevate legs, recheck weight, ok to recheck later this week. ER if worsening SOB. I'll defer increasing lasix to cardiology. * Telephone Encounter - Vero Gonzales LPN - 02/27/2024 4:10 PM EDT Per verbal from Dr. Banuelos and Avani Espinoza,. Pt needs eval in ER. Called pt, says that "edema is not new". Has had edema. Slightly more SOB, and always has junky cough. Pt says she will not go back to ER. I told pt that I would let provider know and HH nurse is to continue to check up on her. IF she worsens, she needs ED immediately. Pt states understanding. S/w HH nurse, she was more concerned about fluid build up, and wondered if extra Lasix would be ok? Was not planning on seeing pt again this week, but she can go and check on her again, witha verbal order. Needs called by RN if verbal order done. Please advise. * Telephone Encounter - Vero Gonzales LPN - 02/27/2024 3:45 PM EDT S/w JAZZMINE phone. Edema is more significant than before. HH nurse wanted to report it. Should pt go toER for eval? HH was not on other line to speak with. We can call pt and suggest ER if you agree. * Telephone Encounter - Elvira Gallagher LPN - 02/27/2024 3:29 PM EDT HH Concerns Reanna RN, Calling from: [facility] Report/Concerns of: Edema, cough Symptoms: see below. Vitals: T 97.3 P 62 RR 18 BP 120/72, sitting SP O2 92% 3LPM Lung sounds Clear Weight- Refused to weigh herself Narrative: Reanna calling in stating that she was out to see patient earlier today for HH visit. Reanna reporting that she is significantly more swollen in the lower extremities since last visit +2 maybe +3 pitting edema. She said there is this area behind her knees that looks like a swollen pocket. She is taking Lasix 40mg daily as prescribed. Last couple nights patient has been having coughing episodes where she feels like she needs to get something up but cannot. Even if she did get something up she doesn't feel satisfied, feels like shestill has to bring something up. Smoker for 64 years, she is trying not to smoke as much. Refuses to weigh herself. Debra stated that she does try to suggestions with her but she always come back to say, well.. it's been like that for years. Any questions or concern you can Call [employer] [facility] back at: [phone] Spoke with Jacquie in office, she will bring to covering providers attention. * Telephone Encounter - Nancie Beckwith OSA - 02/27/2024 3:26 PM EDT Reason for call: Ms. Forte from [employer] [facility] called requesting to speak w/ a nurse Caller was transferred to Elvira at the nurse line. documented in this encounter Plan of Treatment Upcoming Encounters Date Type Department Care Team (Late st Contact Info) Description 04/26/2024 10:30 AM EST Office Visit Cardiology, [facility] [address] [place] [address] Kely Pepper PA-C [address] [place] [address] 05/17/2024 12:30 PM EST Imaging Radiology [facility] [facility] [address] [facility] [place] [address] 05/20/2024 12:40 PM EST Office Visit Pulmonary Medicine, [facility] [address] [facility] [place] [address] Segundo Clarke MD [address] [place] [address] 08/30/2024 12:20 PM EDT Office Visit Family Practice [facility] [address] [facility] [place] [address] Khoa Hui MD [address] [facility] [place] [address] 03/18/2025 1:40 PM EDT Office Visit [facility] Practice [facility] [address] [facility] [place] [address] Khoa Hui MD [address] [facility] [place] [address] Health Maintenance Due Date Last Done Comments [...] Advance Directives occurred with: Patient Care Teams Auctioneer Tobacco Relationship Specialty Start Date End Date Khoa Hui MD [address] [place] [address] PCP - General Family Medicine 05/19/14 documented as of this encounter
--- OUTSIDE RECORDS SUMMARY | 2024-03-02 06:26 | External Medical Summary | Summary of Care ---
Author Name Unknown Organization [facility] Address [address] [place] [address] Phone [phone] Care Team Providers Care Sumatra Opener Name Role Phone Khoa Hui MD Primary Care Provider + Reason for Visit * Reason Onset Date Comments Order Request 02/27/2024 Order request Encounter Details Date Type Department Care Team (Late st Contact Info) Description 02/27/2024 Telephone Pulmonary Medicine Raymon Hagan [address] [phone] Segundo Norton MD [address] [place], [place] [id number] Order Request (Order request) Allergies Active Allergy Reactions Criticality Noted Date Comments Marlo Inhibitors Cough 02/23/2009 Valsartan Edema face/lips/tongue High 05/17/2012 Dog Dander Other (Please comment) High 06/11/2015 Congestion, SOB Influenza Vac Split Quad Other (Please comment) 03/15/2012 Sinus pressure, drainage after flu shot on 2 occasions Levofloxacin 10/07/2013 Itching; hives on trunk and lower extremities Nickel Rash 05/20/2008 documented as of this encounter (statuses as of 02/27/2024) Medications Medication Sig Dispensed Refills Start Date End Date Status Aspirin EC 81 MG Oral Tablet Delayed Release Take 1 Tablet by mouth in the morning. 01/21/2022 Active Azelastine HCl 0.1 % Nasal Solution (Astelin)Indications: Rhinitis, nonallergic Administer 1 [place] into nostril in the morning and 1 [place] before bedtime. 90 mL 3 04/05/2023 Active Isosorbide Mononitrate ER 30 MG Oral Tablet Extended Release 24 Hour (Imdur)Indications:CA D in [place] artery Take 1 Tablet by mouth in the morning. 90 Tablet 3 07/05/2023 Active Nitroglycerin 0.4 MG Sublingual Tablet Sublingual (Nitrostat)Indication s:CAD in [place] artery Place 1 Tablet under the tongue [...] s:COPD, group D, by GOLD 2017 classification ([facility]) Inhale 2 Puffs by mouth in the morning and 2 Puffs before bedtime. 32.1 g 3 02/21/2024 Active ProAir HFA 108 (90 Base) MCG/ACT Inhalation Aerosol SolutionIndications:C OPD, group D, by GOLD 2017 classification ([facility]) Inhale 2 Puffs by mouth every 4 hours as needed for Cough, Shortness of Breath or Wheezing. 54 g 3 02/21/2024 Active documented as of this encounter (statuses as of 02/27/2024) Active Problems Problem Noted Date Diagnosed Date Chronic respiratory failure with hypoxia 024 COPD, group D, by GOLD 2017 classification 05/16 Overview: Per COPD GOLD Classification Bladder mass 01/05/2022 Ureteral lesion, [place], right 01/05/2022 Chronic diastolic heart failure 07/01/2021 Pulmonary hypertension 07/01/2021 Lung nodule 07/01/2021 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 10/25/2018 Prediabetes 07/31/2018 Elevated TSH 07/31/2018 CAD in [place] artery 03/20/2015 Venous insufficiency 03/12/2014 Overview: 03/18 US --no DVT LLE Paroxysmal atrial fibrillation 02/04/2014 Overview: 01/16-[facility] hosp w/rapid response. Change to toprol. Start xarelto. 2007? converted with IV diltiazem Routine general medical exam ination at a health care facility 09/05/2013 Overview: 02/26 TTE [facility] normal EF Grade II Ghosh DYs, mild [...] as of this encounter (statuses as of 02/27/2024) Resolved Problems Problem Noted Date Diagnosed Date [...] as of this encounter (statuses as of 02/27/2024) Immunizations Name Administration Dates Next Due COVID-19 mRNA, LNP-s, No Pre serve, 2-Dose Series ([employer]) 01/26/2022,03/08/2021,08/20/2020,07/30 Pneumococcal Polysaccharide PPV23 (Pneumovax) 05/13/2009 Seasonal [...] on file Are you (or your family) miim eless or worried that you might be [...] as of this encounter Miscellaneous Notes * Addendum Note - Segundo Norton MD - 02/27/2024 8:41 AM EDTAddended by: SEGUNDO NORTON on: 02/27/2024 08:41 AM Modules accepted: Orders * Telephone Encounter - Segundo Norton MD - 02/27/2024 8:41 AM EDT Ordered. * Telephone Encounter - Sarina Valiente LPN - 02/27/2024 7:25 AM EDT Order was submitted to [employer] for patients portable Humidifier Bottle O2 therapy. [employer] states that the: RX MUST BE FOR HOME OXYGEN CONCENTRATOR TOO- PLEASE ADD TO RX. IF HAND WRITTEN NEEDS TO BE DATED AND INITIALED BY THE PHYSICIAN. Thank you documented in this encounter Plan of Treatment Upcoming Encounters Date Type Department Care Team (Late st Contact Info) Description 02/27/2024 5:10 PM EDT Anticoagulation Pharmacy, [facility] [address] [place] [address] Pharmacist1, [facility] [address] [facility] [place] [address] 04/26/2024 10:30 AM EST Office Visit Cardiology, [facility] [address] [place] [address] Kely Pepper, ROD [address] [place] [address] 05/17/2024 12:30 PM EST Imaging Radiology [facility] [address] [facility] [place] [address] 05/20/2024 12:40 PM EST Office Visit Pulmonary Medicine, [facility] [address] [facility] [place] [address] Segundo Norton MD [address] [address] 08/30/2024 12:20 PM EDT Office Visit Family Practice [facility] [address] [facility] [place] [address] Khoa Hui MD 132 [facility] [place] [address] 03/18/2025 1:40 PM EDT Office Visit Family Practice [facility] [address] [facility] [place] [address] Khoa Hui MD 132 [facility] [place] [address] Health Maintenance Due Date Last Done Comments [...] as of this encounter Visit Diagnoses Diagnosis Chronic respiratory failure with hypoxia (HCC)- Primary Chronic respiratory failure documented in this encounter Advance Directives * Full Code [...] Advance Directives occurred with: Patient Care Teams Sumatra Opener Relationship Specialty Start Date End Date Khoa Hui MD [address] [place] [address] PCP - General Family Medicine 05/19/14 documented as of this encounter
--- OUTSIDE RECORDS SUMMARY | 2024-03-02 06:26 | External Medical Summary | Summary of Care ---
Author Name Unknown Organization [facility] Address [address] [place] [address] Phone [phone] Care Team Providers Care Slitter Processed Film Name Role Phone Khoa Hui MD Primary Care Provider + Reason for Visit * Reason Onset Date Comments Follow Up 02/28/2024 O2 orders Encounter Details Date Type Department Care Team (Late st Contact Info) Description 02/28/2024 Telephone Pulmonary Medicine Raymon Hagan [address] [phone] Segundo Clarke MD [address] [phone] Follow Up (O2 orders) Allergies Active Allergy [...] Nasal Solution (Astelin)Indications: Rhinitis, nonallergic Administer 1 [place] into nostril in the morning and 1 [place] before bedtime. 90 mL 3 04/05/2023 Active Isosorbide Mononitrate ER 30 MG Oral Tablet Extended Release 24 Hour (Imdur)Indications:CA D in [place] artery Take 1 Tablet by mouth in the morning. 90 Tablet 3 07/05/2023 Active Nitroglycerin 0.4 MG Sublingual Tablet Sublingual (Nitrostat)Indication s:CAD in [place] artery Place 1 Tablet under the tongue [...] s:COPD, group D, by GOLD 2017 classification ([facility]) Inhale 2 Puffs by mouth in the morning and 2 Puffs before bedtime. 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 Change to toprol. Start xarelto. 2007? converted with IV diltiazem Routine general medical exam ination at a health care facility 09/05/2013 Overview: 02/26 TTE [facility] normal EF Grade II Ghosh DYs, mild [...] mRNA, LNP-s, No Pre serve, 2-Dose Series ([employer]) 01/26/2022,03/08/2021,08/20/2020,07/30 Pneumococcal Polysaccharide PPV23 (Pneumovax) 05/13/2009 Seasonal [...] encounter Miscellaneous Notes * Telephone Encounter - Jalyn Villasenor OSA - 02/29/2024 10:19 AM EDT Daughter calling in to request that the last PFT's patient had need to be sent to [facility] along with the POC. Please advise. Fax number [phone] Thank you! * Telephone Encounter - Sarina [...] wants to do at this time. Per [employer] to get the poc .She will have to switch to them from her current DME which is [facility] . [facility] is aware. documented in this encounter Plan of Treatment Upcoming Encounters Date Type Department Care Team (Late st Contact Info) Description 04/26/2024 10:30 AM EST Office Visit Cardiology, [facility] [address] [address] Kely Pepper PA-C [address] [address] 05/17/2024 12:30 PM EST Imaging Radiology [facility] 1st Floor, [place] [address] [address] 05/20/2024 12:40 PM EST Office Visit Pulmonary Medicine, [facility] 132 [facility] [place] [address] Segundo Clarke MD [address] [place] [address] 08/30/2024 12:20 PM EDT Office Visit [facility] [place] [address] [address] Khoa Hui MD [address] [place] [address] 03/18/2025 1:40 PM EDT Office Visit [facility] [place] [address] [address] Khoa Hui MD [address] [place] [address] Health Maintenance Due Date Last Done Comments [...] Advance Directives occurred with: Patient Care Teams Slitter Processed Film Relationship Specialty Start Date End Date Khoa Hui MD [address] [address] PCP - General Family Medicine 05/19/14 documented as of this encounter
--- OUTSIDE RECORDS SUMMARY | 2024-03-02 06:26 | External Medical Summary | Summary of Care ---
Author Name Unknown Organization [facility] Address [address] [place] [address] Phone [phone] Care Team Providers Care Performance Improvement Manager Name Role Phone Khoa Hui MD Primary Care Provider + Reason for Visit * Reason Onset Date Comments Order Request 02/27/2024 Order request Encounter Details Date Type Department Care Team (Late st Contact Info) Description 02/27/2024 Telephone Pulmonary Medicine Raymon Hagan [address] [phone] Segundo Norton MD [address] [place], [place] [phone] Order Request (Order request) Allergies Active Allergy [...] Nasal Solution (Astelin)Indications: Rhinitis, nonallergic Administer 1 [place] into nostril in the morning and 1 [place] before bedtime. 90 mL 3 04/05/2023 Active Isosorbide Mononitrate ER 30 MG Oral Tablet Extended Release 24 Hour (Imdur)Indications:CA D in [place] artery Take 1 Tablet by mouth in the morning. 90 Tablet 3 07/05/2023 Active Nitroglycerin 0.4 MG Sublingual Tablet Sublingual (Nitrostat)Indication s:CAD in [place] artery Place 1 Tablet under the tongue [...] by GOLD 2017 classification ([facility]) Inhale 2 Puffs by mouth in the morning and 2 Puffs before bedtime. 32.1 g 3 02/21/2024 Active ProAir HFA 108 (90 Base) MCG/ACT Inhalation Aerosol SolutionIndications:C OPD, group D, by GOLD 2017 classification ([facility]) Inhale 2 Puffs by mouth every 4 hours as needed for Cough, Shortness of Breath or Wheezing. 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 Change to toprol. Start xarelto. 2007? converted with IV diltiazem Routine general medical exam ination at a health care facility 09/05/2013 Overview: 02/26 TTE [facility] normal EF Grade II Ghosh DYs, mild [...] mRNA, LNP-s, No Pre serve, 2-Dose Series ([employer]) 01/26/2022,03/08/2021,08/20/2020,07/30 Pneumococcal Polysaccharide PPV23 (Pneumovax) 05/13/2009 Seasonal [...] 7:25 AM EDT Order was submitted to [employer] for patients portable Humidifier Bottle O2 therapy. [employer] states that the: RX MUST BE FOR HOME OXYGEN CONCENTRATOR TOO- PLEASE ADD TO RX. IF HAND WRITTEN NEEDS TO BE DATED AND INITIALED BY THE PHYSICIAN. Thank you documented in this encounter Plan of Treatment Upcoming Encounters Date Type Department Care Team (Late st Contact Info) Description 02/27/2024 5:10 PM EDT Anticoagulation Pharmacy, [facility] [address] [place] [address] Pharmacist1, [facility] [address] [facility] [place] [address] 04/26/2024 10:30 AM EST Office Visit Cardiology, [facility] [address] [place] [address] Kely Pepper, ROD [address] [place] [address] 05/17/2024 12:30 PM EST Imaging Radiology [facility] [address] [facility] [place] [address] 05/20/2024 12:40 PM EST Office Visit Pulmonary Medicine, [facility] [address] [facility] [place] [address] Segundo Norton MD [address] [address] 08/30/2024 12:20 PM EDT Office Visit Family [facility] [address] [facility] [place] [address] Khoa Hui MD [address] [facility] [place] [address] 03/18/2025 1:40 PM EDT Office Visit Family [facility] [address] [facility] [place] [address] Khoa Hui MD 132 [facility] [place] [address] Health Maintenance Due Date Last Done Comments [...] Advance Directives occurred with: Patient Care Teams Performance Improvement Manager Relationship Specialty Start Date End Date Khoa Hui MD [address] [place] [address] PCP - General Family Medicine 05/19/14 documented as of this encounter
--- OUTSIDE RECORDS SUMMARY | 2024-03-02 06:26 | External Medical Summary | Summary of Care ---
Author Name Unknown Organization [facility] Address [address] [place] [address] Phone [phone] Care Team Providers Care Administrative Intern Name Role Phone Khoa Hui MD Primary Care Provider + Reason for Visit * Reason Onset Date Comments Order Request 02/27/2024 Order request - oxygen Encounter Details Date Type Department Care Team (Late st Contact Info) Description 02/27/2024 Telephone Pulmonary Medicine Raymon Hagan [address] [phone] Segundo Norton MD [address] [address] Order Request (Order request - oxygen ) Allergies Active Allergy Reactions Criticality Noted [...] Nasal Solution (Astelin)Indications: Rhinitis, nonallergic Administer 1 [place] into nostril in the morning and 1 [place] before bedtime. 90 mL 3 04/05/2023 Active Isosorbide Mononitrate ER 30 MG Oral Tablet Extended Release 24 Hour (Imdur)Indications:CA D in [place] artery Take 1 Tablet by mouth in the morning. 90 Tablet 3 07/05/2023 Active Nitroglycerin 0.4 MG Sublingual Tablet Sublingual (Nitrostat)Indication s:CAD in [place] artery Place 1 Tablet under the tongue [...] group D, by GOLD 2017 classification ([facility]) Inhale 2 Puffs by mouth in the morning and 2 Puffs before bedtime. 32.1 g 3 02/21/2024 Active ProAir HFA 108 (90 Base) MCG/ACT Inhalation Aerosol SolutionIndications:C OPD, group D, by GOLD 2017 classification ([facility]) Inhale 2 Puffs by mouth every 4 hours as needed for Cough, Shortness of Breath or Wheezing. 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 Change to toprol. Start xarelto. 2007? converted with IV diltiazem Routine general medical exam ination at a health care facility 09/05/2013 Overview: 02/26 TTE [facility] normal EF Grade II Ghosh DYs, mild [...] Note - Segundo Norton MD - 02/27/2024 2:37 PM EDTAddended by: SEGUNDO NORTON on: 02/27/2024 02:37 PM Modules accepted: Orders * Telephone Encounter - Segundo Norton MD - 02/27/2024 2:36 PM EDT New order for 3 LPM specific oxygen therapy and a new order for conserving device testing has been added. * Telephone Encounter - Sarina Valiente LPN - 02/27/2024 2:18 PM EDT The order for the home oxygen concentrator still needs to have the 3L oxygen written on it. At home and portability when she is out and about. Because they are still asking for O2 saturation testing. I asked Les for advise of this. Thank you * Addendum Note - Segundo Norton MD - 02/27/2024 8:41 AM EDTAddended by: SEGUNDO NORTON on: 02/27/2024 08:41 AM Modules accepted: Orders * Telephone Encounter - Segundo Norton MD - 02/27/2024 8:41 AM EDT Ordered. * Telephone Encounter - Sarina Valiente LPN - 02/27/2024 7:25 AM EDT Order was submitted to [employer] for patients portable Humidifier Bottle O2 therapy. [employer] states that the: RX MUST BE FOR HOME OXYGEN CONCENTRATOR TOO- PLEASE ADD TO RX. IF HAND WRITTEN NEEDS TO BE DATED AND INITIALED BY THE PHYSICIAN. Thank you documented in this encounter Plan of Treatment Upcoming Encounters Date Type Department Care Team (Latest Contact Info) Description 02/27/2024 5:10 PM EDT Anticoagulation Pharmacy, [facility] [address] [place] [address] Pharmacist1, [facility] [address] [facility] [place] [address] Paroxysmal atrial fibrillation (HCC)* 04/26/2024 10:30 AM EST Office Visit Cardiology, [facility] [place] [address] Kely Pepper PA-C [address] [place] [address] 05/17/2024 12:30 PM EST Imaging Radiology [facility] 1st Floor, [place] 132 [facility] [place] [address] 05/20/2024 12:40 PM EST Office Visit Pulmonary Medicine, [facility] [address] [facility] [place] [address] Segundo Norton MD [address] [place] [address] 08/30/2024 12:20 PM EDT Office Visit Family Practice [facility] [address] [place] [address] Khoa Hui MD [address] [place] [address] 03/18/2025 1:40 PM EDT Office Visit Family [facility] [address] [place] [address] Khoa Hui MD [address] [place] [address] Scheduled Orders Name Type Priority Associated Diagnoses Orde r Schedule PULMONARY STRESS TESTING Procedures Routine Chronic respiratory failure with hypoxia (HCC) Expected: 02/28/2024, Expires: 03/28/2025 Health Maintenance Due Date Last Done Comments [...] Paroxysmal atrial fibrillation (HCC)- Primary Atrial fibrillation Chronic respiratory failure with hypoxia (HCC)- Primary [...] Advance Directives occurred with: Patient Care Teams Administrative Intern Relationship Specialty Start Date End Date Khoa Hui MD 132 [facility] [place] [address] PCP - General Family Medicine 05/19/14 documented as of this encounter
--- OUTSIDE RECORDS SUMMARY | 2024-03-02 06:26 | External Medical Summary | Summary of Care ---
Author Name Unknown Organization [facility] Address [address] [place] [address] Phone [phone] Care Team Providers Care Soccer Commentator Name Role Phone Khoa Hui MD Primary Care Provider + Reason for Visit * Reason Onset Date Comments Follow Up 02/28/2024 O2 orders Encounter Details Date Type Department Care Team (Late st Contact Info) Description 02/28/2024 Telephone Pulmonary Medicine Raymon Hagan [address] [phone] Segundo Clarke MD [address] [address] Follow Up (O2 orders) Allergies Active Allergy [...] as of this encounter (statuses as of 02/28/2024) Medications Medication Sig Dispensed Refills Start Date End Date Status Aspirin EC 81 MG Oral Tablet Delayed Release Take 1 Tablet by mouth in the morning. 01/21/2022 Active Azelastine HCl 0.1 % Nasal Solution (Astelin)Indications: Rhinitis, nonallergic Administer 1 [place] into nostril in the morning and 1 [place] before bedtime. 90 mL 3 04/05/2023 Active Isosorbide Mononitrate ER 30 MG Oral Tablet Extended Release 24 Hour (Imdur)Indications:CA D in [place] artery Take 1 Tablet by mouth in the morning. 90 Tablet 3 07/05/2023 Active Nitroglycerin 0.4 MG Sublingual Tablet Sublingual (Nitrostat)Indication s:CAD in [place] artery Place 1 Tablet under the tongue [...] s:COPD, group D, by GOLD 2017 classification ([facility]) Inhale 2 Puffs by mouth in the morning and 2 Puffs before bedtime. 32.1 g 3 02/21/2024 Active ProAir HFA 108 (90 Base) MCG/ACT Inhalation Aerosol SolutionIndications:C OPD, group D, by GOLD 2017 classification ([facility]) Inhale 2 Puffs by mouth every 4 hours as needed for Cough, Shortness of Breath or Wheezing. 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 Change to toprol. Start xarelto. 2007? converted with IV diltiazem Routine general medical exam ination at a health care facility 09/05/2013 Overview: 02/26 TTE [facility] normal EF Grade II Ghosh [...] as of this encounter (statuses as of 02/28/2024) Resolved Problems Problem Noted Date Diagnosed Date [...] as of this encounter (statuses as of 02/28/2024) Immunizations Name Administration Dates Next Due COVID-19 mRNA, LNP-s, No Pre serve, 2-Dose Series ([employer]) 01/26/2022,03/08/2021,08/20/2020,07/30 Pneumococcal Polysaccharide PPV23 (Pneumovax) 05/13/2009 Seasonal [...] encounter Miscellaneous Notes * Telephone Encounter - Sarina Valiente LPN - 02/28/2024 1:18 PM EDT Left message for patients daughter (Jo Ann) to discuss recent orders for poc Patient stated that daughter isn't sure what she wants to do at this time. Per [employer] to get the poc .She will have to switch to them from her current DME which is [employer] . [employer] is aware. documented in this encounter Plan of Treatment Upcoming Encounters Date Type Department Care Team (Late st Contact Info) Description 04/26/2024 10:30 AM EST Office Visit Cardiology, [facility] [address] [address] Kely Pepper PA-C [address] [address] 05/17/2024 12:30 PM EST [facility] [address] [address] 05/20/2024 12:40 PM EST Office Visit Pulmonary Medicine, [facility] [address] [facility] [place] [address] Segundo Clarke MD [address] [place] [address] 08/30/2024 12:20 PM EDT Office Visit Family Practice [facility] [address] [address] Khoa Hui MD [address] [address] 03/18/2025 1:40 PM EDT Office Visit Family Practice [facility] [address] [address] Khoa Hui MD [address] [address] Health Maintenance Due Date Last Done Comments [...] Advance Directives occurred with: Patient Care Teams Soccer Commentator Relationship Specialty Start Date End Date Khoa Hui MD [address] [place] [address] PCP - General Family Medicine 05/19/14 documented as of this encounter
--- OUTSIDE RECORDS SUMMARY | 2024-03-02 06:26 | External Medical Summary | Summary of Care ---
Author Name Unknown Organization [facility] Address [address] [place] [address] Phone [phone] Care Team Providers Care Director Of Rehabilitation And Wellness Name Role Phone Khoa Hui MD Primary Care Provider + Reason for Visit * Reason Onset Date Comments Follow Up 02/28/2024 O2 orders Encounter Details Date Type Department Care Team (Late st Contact Info) Description 02/28/2024 Telephone Pulmonary Medicine Raymon Hagan [address] [phone] Segundo Clarke MD [address] [...] Nasal Solution (Astelin)Indications: Rhinitis, nonallergic Administer 1 [place] into nostril in the morning and 1 [place] before bedtime. 90 mL 3 04/05/2023 Active Isosorbide Mononitrate ER 30 MG Oral Tablet Extended Release 24 Hour (Imdur)Indications:CA D in [place] artery Take 1 Tablet by mouth in the morning. 90 Tablet 3 07/05/2023 Active Nitroglycerin 0.4 MG Sublingual Tablet Sublingual (Nitrostat)Indication s:CAD in [place] artery Place 1 Tablet under the tongue [...] D, by GOLD 2017 classification ([facility]) Inhale 2 Puffs by mouth in the morning and 2 Puffs before bedtime. 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 Change to toprol. Start xarelto. 2007? converted with IV diltiazem Routine general medical exam ination at a health care facility 09/05/2013 Overview: 02/26 TTE [facility] normal EF Grade II Ghosh DYs, [...] mRNA, LNP-s, No Pre serve, 2-Dose Series ([employer]) 01/26/2022,03/08/2021,08/20/2020,07/30 Pneumococcal Polysaccharide PPV23 (Pneumovax) 05/13/2009 Seasonal [...] wants to do at this time. Per [employer] to get the poc .She will have to switch to them from her current DME which is [employer] . [employer] is aware. documented in this encounter Plan of Treatment Upcoming Encounters Date Type Department Care Team (Late st Contact Info) Description 04/26/2024 10:30 AM EST Office Visit Cardiology, [facility] [address] [address] Kely Pepper PA-C [address] [facility] [address] [address] 05/17/2024 12:30 PM EST Imaging Radiology [facility]st [facility] [address] [address] 05/20/2024 12:40 PM EST Office Visit Pulmonary Medicine, [facility] [address] [facility] [place] [place] [address] Segundo Clarke MD [address] [facility] [place] [address] 08/30/2024 12:20 PM EDT Office Visit [facility] [address] [address] Khoa Hui MD [address] [address] 03/18/2025 1:40 PM EDT Office Visit [facility] [address] [address] Khoa Hui MD [address] [address] Health Maintenance Due Date Last Done Comments [...] Advance Directives occurred with: Patient Care Teams Director Of Rehabilitation And Wellness Relationship Specialty Start Date End Date Khoa Hui MD [address] [facility] [place] [address] PCP - General Family Medicine 05/19/14 documented as of this encounter
--- OUTSIDE RECORDS SUMMARY | 2024-03-02 06:26 | External Medical Summary | Summary of Care ---
Author Name Unknown Organization [facility] Address [address] [place] [address] Phone [phone] Care Team Providers Care Pharm Spec Name Role Phone Khoa Hui MD Primary Care Provider + Reason for Visit * Reason Onset Date Comments Follow Up 02/28/2024 O2 orders Encounter Details Date Type Department Care Team (Late st Contact Info) Description 02/28/2024 Telephone Pulmonary Medicine Raymon Hagan [address] [phone] Segundo Clarke MD [address] [...] Nasal Solution (Astelin)Indications: Rhinitis, nonallergic Administer 1 [place] into nostril in the morning and 1 [place] before bedtime. 90 mL 3 04/05/2023 Active Isosorbide Mononitrate ER 30 MG Oral Tablet Extended Release 24 Hour (Imdur)Indications:CA D in [place] artery Take 1 Tablet by mouth in the morning. 90 Tablet 3 07/05/2023 Active Nitroglycerin 0.4 MG Sublingual Tablet Sublingual (Nitrostat)Indication s:CAD in [place] artery Place 1 Tablet under the tongue [...] s:COPD, group D, by GOLD 2017 classification ([facility]) Inhale 2 Puffs by mouth in the morning and 2 Puffs before bedtime. 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 Change to toprol. Start xarelto. 2007? converted with IV diltiazem Routine general medical exam ination at a health care facility 09/05/2013 Overview: 02/26 TTE [facility] normal EF Grade II Ghosh DYs, [...] mRNA, LNP-s, No Pre serve, 2-Dose Series ([employer]) 01/26/2022,03/08/2021,08/20/2020,07/30 Pneumococcal Polysaccharide PPV23 (Pneumovax) 05/13/2009 Seasonal [...] wants to do at this time. Per [facility] to get the poc .She will have to switch to them from her current DME which is [employer] . [facility] is aware. documented in this encounter Plan of Treatment Upcoming Encounters Date Type Department Care Team (Late st Contact Info) Description 04/26/2024 10:30 AM EST Office Visit Cardiology, [facility] [address] [address] Kely Pepper PA-C [address] [place] [address] 05/17/2024 12:30 PM EST Imaging Radiology [facility] 1st [facility] [address] [facility] [place] [address] 05/20/2024 12:40 PM EST Office Visit Pulmonary Medicine, [facility] [address] [facility] [place] [place] [address] Segundo Clarke MD [address] [address] 08/30/2024 12:20 PM EDT Office Visit Family Practice [facility] [address] [facility] [place] [address] Khoa Hui MD 132 [facility] [place] [address] 03/18/2025 1:40 PM EDT Office Visit Family Practice [facility] [address] [facility] [place] [address] Khoa Hui MD [address] [facility] [place] [address] Health Maintenance Due Date Last Done Comments [...] Advance Directives occurred with: Patient Care Teams Pharm Spec Relationship Specialty Start Date End Date Khoa Hui MD [address] [place] [address] PCP - General Family Medicine 05/19/14 documented as of this encounter
--- OUTSIDE RECORDS SUMMARY | 2024-03-02 06:26 | External Medical Summary | Summary of Care ---
Author Name Unknown Organization [facility] Address [address] [facility] [place] [address] Phone [phone] Care Team Providers Care Clothing Consultant Name Role Phone Khoa Hui MD Primary Care Provider + Reason for Visit * Reason Comments Dosage Adjustment Via Phone (anticoag Cl inic) Encounter Details Date Type Department Care Team (Latest Contact Info) Description 02/27/2024 5:10 PM EDT Anticoagulation Pharmacy, [facility] [address] [facility] [place] [address] Pharmacist1, [facility] [address] [facility] [place] [address] Paroxysmal atrial fibrillation (HCC)* Allergies Active Allergy Reactions Criticality Noted Date [...] Nasal Solution (Astelin)Indications: Rhinitis, nonallergic Administer 1 [place] into nostril in the morning and 1 [place] before bedtime. 90 mL 3 04/05/2023 Active Isosorbide Mononitrate ER 30 MG Oral Tablet Extended Release 24 Hour (Imdur)Indications:CA D in [place] artery Take 1 Tablet by mouth in the morning. 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 Change to toprol. Start xarelto. 2007? converted with IV diltiazem Routine general medical exam ination at a health care facility 09/05/2013 Overview: 02/26 TTE [facility] normal EF Grade II Ghosh DYs, mild [...] Progress Notes * Howard Sheth RPh - 02/27/2024 10:24 AM EDT Patient Phone Numbers Patient is getting care from [facility] PH: [phone] FAX: [phone] -- Melissa [phone] (nurse in home) Description Given patients aversion to self injections and lower predicted risk Per Cardiology (see 01/13/22 note) okay with NO lovenox bridge. INR Result As of 02/27/2024 INR goal: 2.0-3.0 INR used for dosin.0 (02/27/2024) Warfarin Plan As of 02/27/2024 Full warfarin instructions: 1.25 mg every Mon, Sat; 2.5 mg all other days Next INR check: 03/05/2024 Repeat PT/INR in 1 week(s) Weekly dose: decreased I spent a total of 10-19 minutes (exact time 15 mins) on the date of service in preparation, delivery, and documentation of the care provided to Lila Rolle excluding any time spent in the performanceof separately billed services or time spent by another provider/QHP. Howard Anderson RPh, [facility] Clinical Pharmacist Medication Therapy Management [facility] 02/27/2024, 10:24 AM * Ami Ozuna, supervisor asbestos textile - 02/27/2024 10:19 AM EDT Caller's name: Blair [facility] Preferred call back number(OFFICE NUMBER FOR ): [phone] Reason for call: Suzanna from [facility] calling in INR results of 2.0. Patient is not being discharged. Thank you, Lorne Ozuna Archival Records Clerk [facility] ([facility]) 02/27/2024, 10:19 AM documented in this encounter Plan of Treatment Upcoming Encounters Date Type Department Care Team (Late st Contact Info) Description 04/26/2024 10:30 AM EST Office Visit Cardiology, [facility] [address] [address] Kely Pepper PA-C [address] [place] [address] 05/17/2024 12:30 PM EST Imaging [facility] [address] [address] 05/20/2024 12:40 PM EST Office Visit Pulmonary Medicine, [facility] [place] [address] Segundo Clarke MD [address] [place] [address] 08/30/2024 12:20 PM EDT Office Visit Family Practice [facility] [address] [address] Khoa Hui MD [address] [address] 03/18/2025 1:40 PM EDT Office Visit Family Practice [facility] [address] [address] Khoa Hui MD [address] [address] Health Maintenance Due Date Last Done Comments [...] Date/Time Associated Diagnosis Comments OUTSIDE LAB-PT/INR Routine 02/27/2024 documented in this encounter Results * OUTSIDE LAB-PT/INR (02/27/2024) INR-OUTSIDE LAB 2.0 02/27/2024 History Per Patient LABORATORY documented in this encounter Visit Diagnoses Diagnosis Paroxysmal atrial fibrillation (HCC)- Primary Atrial fibrillation documented in this encounter Advance Directives * [...] Advance Directives occurred with: Patient Care Teams Clothing Consultant Relationship Specialty Start Date End Date Khoa Hui MD [address] [place] [address] PCP - General Family Medicine 05/19/14 documented as of this encounter
--- OUTSIDE RECORDS SUMMARY | 2024-03-02 06:26 | External Medical Summary | Summary of Care ---
Author Name Unknown Organization [facility] Address [address] [place] [address] Phone [phone] Care Team Providers Care Art Educator Name Role Phone Khoa Hui MD Primary Care Provider + Reason for Visit * Reason Onset Date Comments Follow Up 02/28/2024 O2 orders Encounter Details Date Type Department Care Team (Late st Contact Info) Description 02/28/2024 Telephone Pulmonary Medicine Raymon Hagan [address] [phone] Segundo Clarke MD [address] [phone] Follow Up (O2 orders) Allergies Active Allergy [...] Nasal Solution (Astelin)Indications: Rhinitis, nonallergic Administer 1 [place] into nostril in the morning and 1 [place] before bedtime. 90 mL 3 04/05/2023 Active Isosorbide Mononitrate ER 30 MG Oral Tablet Extended Release 24 Hour (Imdur)Indications:CA D in [place] artery Take 1 Tablet by mouth in the morning. 90 Tablet 3 07/05/2023 Active Nitroglycerin 0.4 MG Sublingual Tablet Sublingual (Nitrostat)Indication s:CAD in [place] artery Place 1 Tablet under the tongue [...] s:COPD, group D, by GOLD 2017 classification ([facility]) Inhale 2 Puffs by mouth in the morning and 2 Puffs before bedtime. 32.1 g 3 02/21/2024 Active ProAir HFA 108 (90 Base) MCG/ACT Inhalation Aerosol SolutionIndications:C OPD, group D, by GOLD 2017 classification ([facility]) Inhale 2 Puffs by mouth every 4 hours as needed for Cough, Shortness of Breath or Wheezing. 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 Change to toprol. Start xarelto. 2007? converted with IV diltiazem Routine general medical exam ination at a health care facility 09/05/2013 Overview: 02/26 TTE [facility] normal EF Grade II Ghosh DYs, [...] mRNA, LNP-s, No Pre serve, 2-Dose Series ([employer]) 01/26/2022,03/08/2021,08/20/2020,07/30 Pneumococcal Polysaccharide PPV23 (Pneumovax) 05/13/2009 Seasonal [...] wants to do at this time. Per [employer] to get the poc .She will have to switch to them from her current DME which is [employer] . [employer] is aware. documented in this encounter Plan of Treatment Upcoming Encounters Date Type Department Care Team (Late st Contact Info) Description 04/26/2024 10:30 AM EST Office Visit Cardiology, [facility] [address] [facility] [place] [address] Kely Pepper PA-C [address] [place] [address] 05/17/2024 12:30 PM EST Imaging Radiology [facility] 1st Floor, [place] [address] [facility] [place] [address] 05/20/2024 12:40 PM EST Office Visit Pulmonary Medicine, [facility] [address] [facility] [place] [address] Segundo Clarke MD [address] [place] [address] 08/30/2024 12:20 PM EDT Office Visit Family Practice [facility] [address] [address] Khoa Hui MD [address] [place] [address] 03/18/2025 1:40 PM EDT Office Visit Family Practice [facility] [address] [facility] [place] [address] Khoa Hui MD [address] [facility] [place] [address] Health Maintenance Due Date Last Done Comments Alpha-1 Antitrypsin 1961 Pneumococcal Vaccine: 65+ Years (2 of 2 - PCV) 05/13/2010 05/13/2009 Adult Wellness Visit 03/31/2018 03/31/2017 DXA Scan 09/18/2018 09/19/2011, 09/19/2011 Depression Screening 10/26/2019 10/25/2018 *ADVANCE DIRECTIVE NOT ON FILE 07/20/2021 DTap/Tdap Vaccines (2 - Td or Tdap) 09/13/2021 09/14/2011 HbA1c 07/25/2023 07/25/2022, 09/2019, 09/27/2018 COVID-19 Vaccine (5 - season) 2024 01/26/2022, 03/08/2021, 08/20/2020, Additional history [...] Advance Directives occurred with: Patient Care Teams Art Educator Relationship Specialty Start Date End Date Khoa Hui MD [address] [address] PCP - General Family Medicine 05/19/14 documented as of this encounter
--- OUTSIDE RECORDS SUMMARY | 2024-03-02 06:26 | External Medical Summary | Summary of Care ---
Author Name Unknown Organization [facility] Address [address] [place] [address] Phone [phone] Care Team Providers Care Food Expeditor Name Role Phone Khoa Hui MD Primary Care Provider + Reason for Visit * Reason Onset Date Comments Order Request 02/27/2024 Order request - oxygen Encounter Details Date Type Department Care Team (Late st Contact Info) Description 02/27/2024 Telephone Pulmonary Medicine Raymon Hagan [address] [phone] Segundo Norton MD [address] [...] Nasal Solution (Astelin)Indications: Rhinitis, nonallergic Administer 1 Roland into nostril in the morning and 1 Roland before bedtime. 90 mL 3 04/05/2023 Active Isosorbide Mononitrate ER 30 MG Oral Tablet Extended Release 24 Hour (Imdur)Indications:CA D in [place] artery Take 1 Tablet by mouth in the morning. 90 Tablet 3 07/05/2023 Active Nitroglycerin 0.4 MG Sublingual Tablet Sublingual (Nitrostat)Indication s:CAD in [place] artery Place 1 Tablet under the tongue [...] D, by GOLD 2017 classification ([facility]) Inhale 2 Puffs by mouth in the morning and 2 Puffs before bedtime. 32.1 g 3 02/21/2024 Active ProAir HFA 108 (90 Base) MCG/ACT Inhalation Aerosol SolutionIndications:C OPD, group D, by GOLD 2017 classification ([facility]) Inhale 2 Puffs by mouth every 4 hours as needed for Cough, Shortness of Breath or Wheezing. 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 Change to toprol. Start xarelto. 2007? converted with IV diltiazem Routine general medical exam ination at a health care facility 09/05/2013 Overview: 02/26 TTE [facility] normal EF Grade II Ghosh [...] Encounter - Sarina Valiente LPN - 02/28/2024 8:50 AM EDT New order faxed below as per [employer] request. * Addendum Note - Segundo Norton MD [...] 7:25 AM EDT Order was submitted to [employer] for patients portable Humidifier Bottle O2 therapy. [...] Visit Cardiology, [facility] [address] [facility] [place] [address] Kely Pepper PA-C [address] [place] [address] 05/17/2024 12:30 PM EST Imaging Radiology [facility] 1st Floor, [place] [address] [facility] [place] [address] 05/20/2024 12:40 PM EST Office Visit Pulmonary Medicine, [facility] [address] [facility] [place] [address] Segundo Norton MD [address] [address] 08/30/2024 12:20 PM EDT Office Visit Family Practice [facility] [address] [facility] [place] [address] Khoa Hui MD [address] [place] [address] 03/18/2025 1:40 PM EDT Office Visit Family Practice [facility] [address] [place] [address] Khoa Hui MD [address] [place] [address] Scheduled Orders Name Type Priority Associated Diagnoses [...] Advance Directives occurred with: Patient Care Teams Food Expeditor Relationship Specialty Start Date End Date Khoa Hui MD [address] [place] [address] PCP - General Family Medicine 05/19/14 documented as of this encounter
--- OUTSIDE RECORDS SUMMARY | 2024-03-02 06:26 | External Medical Summary | Summary of Care ---
Author Name Unknown Organization [facility] Address [address] [place] [address] Phone [phone] Care Team Providers Care Layer Up Name Role Phone Khoa Hui MD Primary Care Provider + Reason for Visit * Reason Onset Date Comments Order Request 02/27/2024 Order request - oxygen Encounter Details Date Type Department Care Team (Late st Contact Info) Description 02/27/2024 Telephone Pulmonary Medicine Raymon Hagan [address] [phone] Segundo Norton MD [address] [...] Nasal Solution (Astelin)Indications: Rhinitis, nonallergic Administer 1 [place] into nostril in the morning and 1 [place] before bedtime. 90 mL 3 04/05/2023 Active Isosorbide Mononitrate ER 30 MG Oral Tablet Extended Release 24 Hour (Imdur)Indications:CA D in [place] artery Take 1 Tablet by mouth in the morning. 90 Tablet 3 07/05/2023 Active Nitroglycerin 0.4 MG Sublingual Tablet Sublingual (Nitrostat)Indication s:CAD in [place] artery Place 1 Tablet under the tongue [...] s:COPD, group D, by GOLD 2017 classification ([facility]) Inhale 2 Puffs by mouth in the morning and 2 Puffs before bedtime. 32.1 g 3 02/21/2024 Active ProAir HFA 108 (90 Base) MCG/ACT Inhalation Aerosol SolutionIndications:C OPD, group D, by GOLD 2017 classification ([facility]) Inhale 2 Puffs by [...] GOLD Classification Bladder mass 01/05/2022 Ureteral lesion, [place], right 01/05/2022 Chronic diastolic heart failure 07/01/2021 Pulmonary hypertension 07/01/2021 Lung nodule 07/01/2021 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 10/25/2018 Prediabetes 07/31/2018 Elevated TSH 07/31/2018 CAD in [place] artery 03/20/2015 Venous insufficiency 03/12/2014 Overview: 03/18 US --no DVT LLE Paroxysmal atrial fibrillation 02/04/2014 Overview: 01/16-[facility] hosp w/rapid response. Change to toprol. Start xarelto. 2007? converted with IV diltiazem Routine general medical exam ination at a health care facility 09/05/2013 Overview: 02/26 TTE [facility] normal EF Grade II Ghosh [...] 7:25 AM EDT Order was submitted to [employer] for patients portable Humidifier Bottle O2 therapy. [employer] states that the: RX MUST BE FOR HOME OXYGEN CONCENTRATOR TOO- PLEASE ADD TO RX. IF HAND WRITTEN NEEDS TO BE DATED AND INITIALED BY THE PHYSICIAN. Thank you documented in this encounter Plan of Treatment Upcoming Encounters Date Type Department Care Team (Latest Contact Info) Description 02/27/2024 5:10 PM EDT Anticoagulation Pharmacy, [address] [place] [address] Pharmacist1, [facility] [address] [facility] [place] [address] Paroxysmal atrial fibrillation (HCC)* 04/26/2024 10:30 AM EST Office Visit Cardiology, [facility] [address] [facility] [place] [address] Kely Pepper PA-C [address] [facility] [place] [address] 05/17/2024 12:30 PM EST [facility] [place] [address] 05/20/2024 12:40 PM EST Office Visit Pulmonary Medicine, [facility] [address] [facility] [place] [address] Segundo Norton MD [address] [facility] [place] [address] 08/30/2024 12:20 PM EDT Office Visit Family Practice [facility] [address] [place] [address] Khoa Hui MD [address] [address] 03/18/2025 1:40 PM EDT Office Visit Family Practice [facility] [address] [place] [address] Khoa Hiu MD [address] [phone] Health Maintenance Due Date Last Done Comments [...] Advance Directives occurred with: Patient Care Teams Layer Up Relationship Specialty Start Date End Date Khoa Hui MD [address] [address] PCP - General Family Medicine 05/19/14 documented as of this encounter
--- OUTSIDE RECORDS SUMMARY | 2024-03-02 06:27 | External Medical Summary | Summary of Care ---
Author Name Unknown Organization [facility] Address [address] [place] [address] Phone [phone] Care Team Providers Care Paper Goods Machine Operator Name Role Phone Khoa Hui MD Primary Care Provider + Reason for Visit * Reason Onset Date Comments Order Request 02/21/2024 Durable Medical Equipment 02/21/2024 Oxygen Humidifier bottle Encounter Details Date Type Department Care Team (Late st Contact Info) Description 02/21/2024 Telephone Pulmonary Medicine, [facility] [address] [facility] [place] [address] Segundo Norton MD [address] [place] [facility] [place] [address] Order Request; Durable Medical Equipment (... Allergies Active Allergy Reactions Criticality Noted Date Comments Marlo Inhibitors Cough 02/23/2009 Valsartan Edema face/lips/tongue High 05/17/2012 Dog Dander Other (Please comment) High 06/11/2015 Congestion, SOB Influenza Vac Split Quad Other (Please comment) 03/15/2012 Sinus pressure, drainage after flu shot on 2 occasions Levofloxacin 10/07/2013 Itching; hives on trunk and lower extremities Nickel Rash 05/20/2008 documented as of this encounter (statuses as of 02/26/2024) Medications Medication Sig Dispensed Refills Start Date End Date Status Aspirin EC 81 MG Oral Tablet Delayed Release Take 1 Tablet by mouth in the morning. 01/21/2022 Active Azelastine HCl 0.1 % Nasal Solution (Astelin)Indication s:Rhinitis, nonallergic Administer 1 [place] into nostril in the morning and 1 [place] before bedtime. 90 mL 3 04/05/2023 Active Isosorbide Mononitrate ER 30 MG Oral Tablet Extended Release 24 Hour (Imdur)Indications: CAD in [place] artery Take 1 Tablet by mouth in the morning. 90 Tablet 3 07/05/2023 Active Nitroglycerin 0.4 MG Sublingual Tablet Sublingual (Nitrostat)Indicati ons:CAD in [place] artery Place 1 Tablet under the tongue every 5 minutes as needed for Pain, Chest. 25 Tablet 3 07/05/2023 Active Spironolactone 25 MG Oral Tablet (Aldactone)Indicati ons:HTN, goal below 130/80,Chronic diastolic heart failure (HCC),Localized edema TAKE 1 TABLET IN THE MORNING 90 Tablet 3 09/05/2023 Active Sotalol HCl 80 MG Oral Tablet (Betapace)Indicatio ns:Paroxysmal atrial fibrillation (HCC) TAKE 1 TABLET TWICE A DAY 180 Tablet 1 10/03/2023 Active Warfarin Sodium 2.5 MG Oral Tablet (Coumadin)Indicatio ns:Paroxysmal atrial fibrillation (HCC) TAKE 1 TABLET DAILY DIRECTED BY [facility] 90 Tablet 3 10/12/2023 Active ProAir HFA 108 (90 Base) MCG/ACT Inhalation Aerosol SolutionIndications :COPD, group D, by GOLD 2017 classification ([facility]) Inhale 2 Puffs by mouth every 4 hours as needed for Cough, Shortness of Breath or Wheezing. 54 g 3 01/24/2023 4 Discontinue d(Refill) Atorvastatin Calcium 40 MG Oral Tablet (Lipitor)Indication s:Paroxysmal atrial fibrillation (HCC),Coronary artery disease involving [place] coronary artery of [place] heart without angina pectoris TAKE 1 TABLET IN THE MORNING 90 Tablet 3 05/25/2023 4 Discontinue d(Medicatio n List Clean Up) Leelee Aerosphere 160-9-4.8 MCG/ACT Inhalation Aerosol (Budeson-Glycopyrro l-Formoterol)Indica tions:COPD, group D, by GOLD 2017 classification ([facility]) Inhale 2 Puffs by mouth in the morning and 2 Puffs before bedtime. 32.1 g 3 07/05/2023 4 Discontinue d(Refill) Furosemide 20 MG Oral Tablet (Lasix)Indications: HTN, goal below 130/80,Chronic diastolic heart failure (HCC),Localized edema TAKE 1 TABLET IN THE MORNING 90 Tablet 3 12/05/2023 4 Discontinue d(Refill) documented as of this encounter (statuses as of 02/26/2024) Active Problems Problem Noted Date Diagnosed Date Chronic respiratory failure with hypoxia 024 COPD, group D, by GOLD 2017 classification 05/16 Overview: Per COPD GOLD Classification Bladder mass 01/05/2022 Ureteral lesion, [place], right 01/05/2022 Chronic diastolic heart failure 07/01/2021 Pulmonary hypertension 07/01/2021 Lung nodule 07/01/2021 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 Change to toprol. Start xarelto. 2007? converted with IV diltiazem Routine general medical exam ination at a health care facility 09/05/2013 Overview: 02/26 TTE [facility] normal EF Grade II Ghosh DYs, mild [...] as of this encounter (statuses as of 02/26/2024) Resolved Problems Problem Noted Date Diagnosed Date [...] as of this encounter (statuses as of 02/26/2024) Immunizations Name Administration Dates Next Due COVID-19 mRNA, LNP-s, No Pre serve, 2-Dose Series ([employer]) 01/26/2022,03/08/2021,08/20/2020,07/30 Pneumococcal Polysaccharide PPV23 (Pneumovax) 05/13/2009 Seasonal [...] Telephone Encounter - Sarina Valiente LPN - 02/26/2024 3:18 PM EDT This order was resent to [facility]. * Telephone Encounter - Sarina Valiente LPN - 02/22/2024 8:31 AM EDT These orders submitted to . * Addendum Note - Segundo Norton MD - 02/21/2024 4:13 PM EDTAddended by: SEGUNDO NORTON on: 02/21/2024 04:13 PM Modules accepted: Orders * Telephone Encounter - Segundo Norton MD - 02/21/2024 4:13 PM EDT New order for portable oxygen therapy was issued. * Telephone Encounter - Cami Giron LPN - 02/21/2024 2:37 PM EDT [employer] is requesting an order that states her oxygen is portable. The humidification was already taken care of. * Telephone Encounter - Khushi Lovett OSA - 02/21/2024 2:24 PM EDT Oxygen Humidifier bottle order submitted to [employer]. * Telephone Encounter - Segundo Norton MD - 02/21/2024 1:48 PM EDT New order for portable humidifier bottle placed. * Addendum Note - Segundo Norton MD - 02/21/2024 1:48 PM EDTAddended by: SEGUNDO NORTON on: 02/21/2024 01:48 PM Modules accepted: Orders * Telephone Encounter - Sandra Otto LPN - 02/21/2024 1:03 PM EDT Oxygen order from 02/18 * Telephone Encounter - Segundo Norton MD - 02/21/2024 11:29 AM EDT Is that for the latest "Humidifier bottle" order? Or original oxygen order ? JFD * Telephone Encounter - Sandra Otto LPN - 02/21/2024 9:37 AM EDT [employer] needs portability added to her order for oxygen also please change DME to [employer] documented in this encounter Plan of Treatment Upcoming Encounters Date Type Department Care Team (Late st Contact Info) Description 02/27/2024 5:10 PM EDT Anticoagulation Pharmacy, [facility] [address] [facility] [place] [address] Pharmacist1, [facility] [address] [facility] [place] [address] 04/26/2024 10:30 AM EST Office Visit Cardiology, [facility] [address] [place] [address] Kely Pepper PA-C [address] [place] [address] 05/17/2024 12:30 PM EST Imaging [facility] [address] [address] 05/20/2024 12:40 PM EST Office Visit Pulmonary Medicine, [facility] [place] [address] Segundo Norton MD [address] [place] [address] 08/30/2024 12:20 PM EDT Office Visit Family Practice [facility] [address] [place] [address] Khoa Hui MD [address] [place] [address] 03/18/2025 1:40 PM EDT Office Visit [facility] [address] [place] [address] Khoa Hui MD [address] [place] [address] Health Maintenance Due Date Last Done Comments [...] Directives occurred with: Patient Care Teams Paper Goods Machine Operator Relationship Specialty Start Date End Date Khoa Hui MD [address] [place] [address] PCP - General Family Medicine 05/19/14 documented as of this encounter
--- OUTSIDE RECORDS SUMMARY | 2024-03-02 06:27 | External Medical Summary | Summary of Care ---
Author Name Unknown Organization [facility] Address [address] [place] [address] Phone [phone] Care Team Providers Care Insurance Examiner Name Role Phone Khoa Hui MD Primary Care Provider + Reason for Visit * Reason Onset Date Comments Order Request 02/21/2024 Durable Medical Equipment 02/21/2024 Oxygen Humidifier bottle Encounter Details Date Type Department Care Team (Late st Contact Info) Description 02/21/2024 Telephone Pulmonary Medicine, [facility] 132 [facility] [place] [address] Segundo Norton MD [address] [facility] [place] [address] Order Request; Durable Medical Equipment (... [...] as of this encounter (statuses as of 02/22/2024) Medications Medication Sig Dispensed Refills Start Date End Date Status Aspirin EC 81 MG Oral Tablet Delayed Release Take 1 Tablet by mouth in the morning. 01/21/2022 Active Azelastine HCl 0.1 % Nasal Solution (Astelin)Indication s:Rhinitis, nonallergic Administer 1 [place] into nostril in the morning and 1 [place] before bedtime. 90 mL 3 04/05/2023 Active Isosorbide Mononitrate ER 30 MG Oral Tablet Extended Release 24 Hour (Imdur)Indications: CAD in [place] artery Take 1 Tablet by mouth in the morning. 90 Tablet 3 07/05/2023 Active Nitroglycerin 0.4 MG Sublingual Tablet Sublingual (Nitrostat)Indicati ons:CAD in [place] artery Place 1 Tablet under the tongue [...] (HCC) TAKE 1 TABLET DAILY DIRECTED BY [facility] 90 Tablet 3 10/12/2023 Active ProAir HFA 108 (90 Base) MCG/ACT Inhalation Aerosol SolutionIndications :COPD, group D, by GOLD 2017 classification ([facility]) Inhale 2 Puffs by mouth every 4 hours as needed for Cough, Shortness of Breath or Wheezing. 54 g 3 01/24/2023 4 Discontinue d(Refill) Atorvastatin Calcium 40 MG Oral Tablet (Lipitor)Indication s:Paroxysmal atrial fibrillation (HCC),Coronary artery disease involving [place] coronary artery of [place] heart without angina pectoris TAKE 1 TABLET IN THE MORNING 90 Tablet 3 05/25/2023 4 Discontinue d(Medicatio n List Clean Up) Leelee Aerosphere 160-9-4.8 MCG/ACT Inhalation Aerosol (Budeson-Glycopyrro l-Formoterol)Indica tions:COPD, group D, by GOLD 2017 classification ([facility]) Inhale 2 Puffs by mouth in the morning and 2 Puffs before bedtime. 32.1 g 3 07/05/2023 4 Discontinue d(Refill) Furosemide 20 MG Oral Tablet (Lasix)Indications: HTN, goal below 130/80,Chronic diastolic heart failure (HCC),Localized edema TAKE 1 TABLET IN THE MORNING 90 Tablet 3 12/05/2023 4 Discontinue d(Refill) documented as of this encounter (statuses as of 02/22/2024) Active Problems Problem Noted Date Diagnosed Date Chronic respiratory failure with hypoxia 024 COPD, group D, by GOLD 2017 classification 05/16 Overview: Per COPD GOLD Classification Bladder mass 01/05/2022 Ureteral lesion, [place], right 01/05/2022 Chronic diastolic heart failure 07/01/2021 Pulmonary hypertension 07/01/2021 Lung nodule 07/01/2021 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 Change to toprol. Start [...] as of this encounter (statuses as of 02/22/2024) Resolved Problems Problem Noted Date Diagnosed Date [...] as of this encounter (statuses as of 02/22/2024) Immunizations Name Administration Dates Next Due COVID-19 [...] Giron LPN - 02/21/2024 2:37 PM EDT [facility] is requesting an order that states her oxygen is portable. The humidification was already taken care of. * Telephone Encounter - Khushi Lovett OSA - 02/21/2024 2:24 PM EDT Oxygen Humidifier bottle order submitted to [employer]. * Telephone Encounter - Segundo Norton MD [...] Contact Info) Description 02/27/2024 5:10 PM EDT [facility], [facility] [place] [address] [address] Pharmacist1, [facility] [address] [facility] [address] 04/26/2024 10:30 AM EST Office Visit Cardiology, [facility] 132 [facility] [place] [address] Kely Pepper, ROD 132 [facility] [place] [address] 05/17/2024 12:30 PM EST [facility] [address] [facility] [place] [address] 05/20/2024 12:40 PM EST Office Visit Pulmonary Medicine, [facility] [address] [facility] [place] [address] Segundo Norton MD [address] [facility] [address] 08/30/2024 12:20 PM EDT Office Visit Family Practice [facility] [address] [place] [address] Khoa Hui MD [address] [place] [address] 03/18/2025 1:40 PM EDT Office Visit Family Practice [facility] [place] [address] Khoa Hui MD 132 [facility] [place] [address] Health Maintenance Due Date Last Done Comments Alpha-1 Antitrypsin 1961 Pneumococcal Vaccine: 65+ Years (2 of 2 - PCV) 05/13/2010 05/13/2009 Adult Wellness Visit 03/31/2018 03/31/2017 DXA Scan 09/18/2018 09/19/2011, 09/19/2011 Depression Screening 10/26/2019 10/25/2018 *ADVANCE DIRECTIVE NOT ON FILE 07/20/2021 DTap/Tdap Vaccines (2 - Td or Tdap) 09/13/2021 09/14/2011 HbA1c 07/25/2023 07/25/2022, 09/0 09/2019, 09/27/2018 COVID-19 Vaccine (5 - season) [...] Advance Directives occurred with: Patient Care Teams Insurance Examiner Relationship Specialty Start Date End Date Khoa Hui MD [address] [place] [place] [address] PCP - General Family Medicine 05/19/14 documented as of this encounter
--- OUTSIDE RECORDS SUMMARY | 2024-03-02 06:27 | External Medical Summary | Summary of Care ---
Author Name Unknown Organization [facility] Address [address] [place] [address] Phone [phone] Care Team Providers Care Aircraft Mechanic Structures Name Role Phone Khoa Hui MD Primary Care Provider + Reason for Visit * Reason Onset Date Comments Order Request 02/21/2024 Durable Medical Equipment 02/21/2024 Oxygen Humidifier bottle Encounter Details Date Type Department Care Team (Late st Contact Info) Description 02/21/2024 Telephone Pulmonary Medicine, [facility] [address] [facility] [place] [address] Segundo Norton MD [address] [place] [facility] [place] [address] Order Request; Durable Medical Equipment (... [...] as of this encounter (statuses as of 02/21/2024) Medications Medication Sig Dispensed Refills Start Date [...] Nasal Solution (Astelin)Indications: Rhinitis, nonallergic Administer 1 [place] into nostril in the morning and 1 [place] before bedtime. 90 mL 3 04/05/2023 Active Atorvastatin Calcium 40 MG Oral Tablet (Lipitor)Indications: Paroxysmal atrial fibrillation (HCC),Coronary artery disease involving [place] coronary artery of [place] heart without angina pectoris TAKE 1 TABLET [...] Extended Release 24 Hour (Imdur)Indications:CA D in [place] artery Take 1 Tablet by mouth in the morning. 90 Tablet 3 07/05/2023 Active Nitroglycerin 0.4 MG Sublingual Tablet Sublingual (Nitrostat)Indication s:CAD in [place] artery Place 1 Tablet under the tongue [...] THE MORNING 90 Tablet 3 12/05/2023 Active documented as of this encounter (statuses as of 02/21/2024) Active Problems Problem Noted Date Diagnosed Date Chronic respiratory failure with hypoxia 024 COPD, group D, by GOLD 2017 classification 05/16 Overview: Per COPD GOLD Classification Bladder mass 01/05/2022 Ureteral lesion, [place], right 01/05/2022 Chronic diastolic heart failure 07/01/2021 Pulmonary hypertension 07/01/2021 Lung nodule 07/01/2021 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 Change to toprol. Start [...] as of this encounter (statuses as of 02/21/2024) Resolved Problems Problem Noted Date Diagnosed Date [...] as of this encounter (statuses as of 02/21/2024) Immunizations Name Administration Dates Next Due COVID-19 [...] EDT Oxygen Humidifier bottle order submitted to [employer]. * Telephone Encounter - Segundo Norton MD [...] Team (Late st Contact Info) Description 02/21/2024 2:40 PM EDT Office Visit Family Practice [facility] [address] [address] Khoa Hui MD [address] [place] [address] Arrived 02/27/2024 5:10 PM EDT Anticoagulation Pharmacy, [facility] [address] [place] [address] Pharmacist1, [facility] 200 [facility] [place] [address] 04/26/2024 10:30 AM EST Office Visit Cardiology, [facility] [address] [address] Kely Pepper PA-C [address] [address] 05/17/2024 12:30 PM EST [facility] [address] [address] 05/20/2024 12:40 PM EST Office Visit Pulmonary Medicine, [facility] [address] [address] Segundo Norton MD [address] [place] [address] 08/30/2024 12:20 PM EDT Office Visit Family [facility] [address] [place] [address] Khoa Hui MD [address] [place] [address] Health Maintenance Due Date Last Done Comments [...] ASSESSMENT COMPLETED IN PAST YEAR FOR COPD 02/18/2025 02/19/2024 Albumin/Creatinine Ratio 07/26/2025 07/26/2022 HPV (Gardasil) Vaccine [...] Advance Directives occurred with: Patient Care Teams Aircraft Mechanic Structures Relationship Specialty Start Date End Date Khoa Hui MD [address] [place] [address] PCP - General Family Medicine 05/19/14 documented as of this encounter
--- OUTSIDE RECORDS SUMMARY | 2024-03-02 06:27 | External Medical Summary | Summary of Care ---
Author Name Unknown Organization [facility] Address [address] [place] [address] Phone [phone] Care Team Providers Care County Administrator Name Role Phone Khoa Hui MD Primary Care Provider + Reason for Visit * Reason Onset Date Comments Order Request 02/27/2024 Order request Encounter Details Date Type Department Care Team (Late st Contact Info) Description 02/27/2024 Telephone Pulmonary Medicine [facility] [address] [place] [phone] Segundo Clarke MD [address] [place], [place] [id number] Order Request (Order request) Allergies Active Allergy [...] Nasal Solution (Astelin)Indications: Rhinitis, nonallergic Administer 1 [place] into nostril in the morning and 1 [place] before bedtime. 90 mL 3 04/05/2023 Active Isosorbide Mononitrate ER 30 MG Oral Tablet Extended Release 24 Hour (Imdur)Indications:CA D in [place] artery Take 1 Tablet by mouth in the morning. 90 Tablet 3 07/05/2023 Active Nitroglycerin 0.4 MG Sublingual Tablet Sublingual (Nitrostat)Indication s:CAD in [place] artery Place 1 Tablet under the tongue [...] s:COPD, group D, by GOLD 2017 classification ([facility]) Inhale 2 Puffs by mouth in the morning and 2 Puffs before bedtime. 32.1 g 3 02/21/2024 Active ProAir HFA 108 (90 Base) MCG/ACT Inhalation Aerosol SolutionIndications:C OPD, group D, by GOLD 2017 classification ([facility]) Inhale 2 Puffs by mouth every 4 hours as needed for Cough, Shortness of Breath or Wheezing. 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 Change to toprol. Start xarelto. 2007? converted with IV diltiazem Routine general medical exam ination at a health care facility 09/05/2013 Overview: 02/26 TTE [facility] normal EF Grade II Ghosh [...] mRNA, LNP-s, No Pre serve, 2-Dose Series ([employer]) 01/26/2022,03/08/2021,08/20/2020,07/30 Pneumococcal Polysaccharide PPV23 (Pneumovax) 05/13/2009 [...] 7:25 AM EDT Order was submitted to [employer] for patients portable Humidifier Bottle O2 therapy. [employer] states that the: RX MUST BE FOR HOME OXYGEN CONCENTRATOR TOO- PLEASE ADD TO RX. IF HAND WRITTEN NEEDS TO BE DATED AND INITIALED BY THE PHYSICIAN. Thank you documented in this encounter Plan of Treatment Upcoming Encounters Date Type Department Care Team (Late st Contact Info) Description 02/27/2024 5:10 PM EDT Anticoagulation Pharmacy, [facility] 200 [facility] [place] [address] Pharmacist1, [facility] 200 [facility] [place] [address] 04/26/2024 10:30 AM EST Office Visit Cardiology, [facility] [address] [facility] [place] [address] Kely Pepper PA-C [address] [place] [address] 05/17/2024 12:30 PM EST Imaging Radiology [facility] 1st Floor, [place] [address] [place] [address] 05/20/2024 12:40 PM EST Office Visit Pulmonary Medicine, [facility] [address] [address] Segundo Clarke MD [address] [address] 08/30/2024 12:20 PM EDT Office Visit Family Practice [facility] [address] [place] [address] Khoa Hui MD [address] [place] [address] 03/18/2025 1:40 PM EDT Office Visit Family Practice [facility] [address] [place] [address] Khoa Hui MD [address] [place] [address] Health Maintenance Due Date Last Done Comments [...] Advance Directives occurred with: Patient Care Teams County Administrator Relationship Specialty Start Date End Date Khoa Hui MD [address] [place] [address] PCP - General Family Medicine 05/19/14 documented as of this encounter
--- OUTSIDE RECORDS SUMMARY | 2024-03-02 06:27 | External Medical Summary | Summary of Care ---
Author Name Unknown Organization [facility] Address [address] [place] [address] Phone [phone] Care Team Providers Care Machine Pan Greaser Name Role Phone Khoa Hui MD Primary Care Provider + Reason for Visit * Reason Onset Date Comments Order Request 02/21/2024 Durable Medical Equipment 02/21/2024 Oxygen Humidifier bottle Encounter Details Date Type Department Care Team (Late st Contact Info) Description 02/21/2024 Telephone Pulmonary Medicine, [facility] 132 [facility] [place] [address] Segundo Norton MD [address] [place] [facility] [place] [address] Order Request; Durable Medical Equipment (... [...] Nasal Solution (Astelin)Indication s:Rhinitis, nonallergic Administer 1 [place] into nostril in the morning and 1 [place] before bedtime. 90 mL 3 04/05/2023 Active Isosorbide Mononitrate ER 30 MG Oral Tablet Extended Release 24 Hour (Imdur)Indications: CAD in [place] artery Take 1 Tablet by mouth in the morning. 90 Tablet 3 07/05/2023 Active Nitroglycerin 0.4 MG Sublingual Tablet Sublingual (Nitrostat)Indicati ons:CAD in [place] artery Place 1 Tablet under the tongue [...] (HCC) TAKE 1 TABLET DAILY DIRECTED BY [facility] 90 Tablet 3 10/12/2023 Active ProAir HFA 108 (90 Base) MCG/ACT Inhalation Aerosol SolutionIndications :COPD, group D, by GOLD 2017 classification ([facility]) Inhale 2 Puffs by mouth every 4 hours as needed for Cough, Shortness of Breath or Wheezing. 54 g 3 01/24/2023 4 Discontinue d(Refill) Atorvastatin Calcium 40 MG Oral Tablet (Lipitor)Indication s:Paroxysmal atrial fibrillation (HCC),Coronary artery disease involving [place] coronary artery of [place] heart without angina pectoris TAKE 1 TABLET IN THE MORNING 90 Tablet 3 05/25/2023 4 Discontinue d(Medicatio n List Clean Up) Leelee Aerosphere 160-9-4.8 MCG/ACT Inhalation Aerosol (Budeson-Glycopyrro l-Formoterol)Indica tions:COPD, group D, by GOLD 2017 classification ([facility]) Inhale 2 Puffs by mouth [...] GOLD Classification Bladder mass 01/05/2022 Ureteral lesion, [place], right 01/05/2022 Chronic diastolic heart failure 07/01/2021 Pulmonary hypertension 07/01/2021 Lung nodule 07/01/2021 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 Change to toprol. Start xarelto. 2007? converted with IV diltiazem Routine general medical exam ination at a health care facility 09/05/2013 Overview: 02/26 TTE [facility] normal EF Grade II Ghosh DYs, mild [...] mRNA, LNP-s, No Pre serve, 2-Dose Series ([employer]) 01/26/2022,03/08/2021,08/20/2020,07/30 Pneumococcal Polysaccharide PPV23 (Pneumovax) 05/13/2009 Seasonal [...] Telephone Encounter - Jalyn Villasenor OSA - 02/26/2024 4:14 PM EDT Brian from [facility] is faxing back o2 orders - there needs to be adjustments made - she is putting instructions on what is needed to complete order. * Telephone Encounter - Sarina Valiente LPN - 02/26/2024 3:18 PM EDT This order was resent to [facility]. * Telephone Encounter - Sarina Valiente LPN [...] EDT Oxygen Humidifier bottle order submitted to [employer]. * Telephone Encounter - Segundo Norton MD [...] EDT Anticoagulation Pharmacy, [facility] [address] [place] [address] Pharmacist1, [facility] 200 [facility] [place] [address] 04/26/2024 10:30 AM EST Office Visit Cardiology, [facility] 132 [facility] [place] [address] Kely Pepper PA-C [address] [place] [address] 05/17/2024 12:30 PM EST Imaging Radiology [facility] [address] [facility] [place] [address] 05/20/2024 12:40 PM EST Office Visit Pulmonary Medicine, [facility] [address] [facility] [place] [address] Segundo Norton MD [address] [address] 08/30/2024 12:20 PM EDT Office Visit Family Practice [facility] [address] [facility] [place] [address] Khoa Hui MD [address] [place] [address] 03/18/2025 1:40 PM EDT Office Visit Family [facility] [address] [place] [address] Khoa Hui MD [address] [place] [address] Health Maintenance Due Date Last Done Comments [...] Advance Directives occurred with: Patient Care Teams Machine Pan Greaser Relationship Specialty Start Date End Date Khoa Hui MD [address] [place] [address] PCP - General Family Medicine 05/19/14 documented as of this encounter
--- OUTSIDE RECORDS SUMMARY | 2024-03-02 06:27 | External Medical Summary | Summary of Care ---
Author Name Unknown Organization [facility] Address [address] [place] [address] Phone [phone] Care Team Providers Care Bar Examiner Name Role Phone Khoa Hui MD Primary Care Provider + Reason for Visit * Reason Onset Date Comments Order Request 02/21/2024 Durable Medical Equipment 02/21/2024 Oxygen Humidifier bottle Encounter Details Date Type Department Care Team (Late st Contact Info) Description 02/21/2024 Telephone Pulmonary Medicine, [facility] 132 [facility] [place] [address] Segundo Norton MD [address] [place] [facility] [place] [address] Order Request; Durable Medical Equipment [...] OPD, group D, by GOLD 2017 classification ([facility]) Inhale 2 Puffs by mouth every 4 hours as needed for Cough, Shortness of Breath or Wheezing. 54 g 3 01/24/2023 Active Azelastine HCl 0.1 % Nasal Solution (Astelin)Indications: Rhinitis, nonallergic Administer 1 [place] into nostril in the morning and 1 [place] before bedtime. 90 mL 3 04/05/2023 Active Atorvastatin Calcium 40 MG Oral Tablet (Lipitor)Indications: Paroxysmal atrial fibrillation (HCC),Coronary artery disease involving [place] coronary artery of [place] heart without angina pectoris TAKE 1 TABLET IN THE MORNING 90 Tablet 3 05/25/2023 Active Breztri Aerosphere 160-9-4.8 MCG/ACT Inhalation Aerosol (Budeson-Glycopyrrol- Formoterol)Indication s:COPD, group D, by GOLD 2017 classification ([facility]) Inhale 2 Puffs by mouth in the morning and 2 Puffs before bedtime. 32.1 g 3 07/05/2023 Active Isosorbide Mononitrate ER 30 MG Oral Tablet Extended Release 24 Hour (Imdur)Indications:CA D in [place] artery Take 1 Tablet by mouth in the morning. 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 Change to [...] encounter Miscellaneous Notes * Telephone Encounter - Khushi Lovett OSA - 02/21/2024 2:24 PM EDT Oxygen Humidifier bottle order submitted to [employer]. * Telephone Encounter - Segundo Norton MD [...] 2:40 PM EDT Office Visit Family Practice [facility] [address] [address] Khoa Hui MD [address] [place] [address] Arrived 02/27/2024 5:10 PM EDT Anticoagulation Pharmacy, [facility] [address] [place] [address] Pharmacist1, [facility] 200 [facility] [place] [address] 04/26/2024 10:30 AM EST Office Visit Cardiology, [facility] [address] [place] [address] Kely Pepper PA-C [address] [address] 05/17/2024 12:30 PM EST Imaging Radiology [facility] 1st Floor, [place] [address] [place] [address] 05/20/2024 12:40 PM EST Office Visit Pulmonary Medicine, [facility] [address] [place] [address] Segundo Norton MD [address] [address] 08/30/2024 12:20 PM EDT Office Visit [facility] [address] [address] Khoa Hui MD [address] [place] [address] Health Maintenance Due Date Last Done Comments [...] Advance Directives occurred with: Patient Care Teams Bar Examiner Relationship Specialty Start Date End Date Khoa Hui MD [address] [place] [address] PCP - General Family Medicine 05/19/14 documented as of this encounter
--- OUTSIDE RECORDS SUMMARY | 2024-03-02 06:27 | External Medical Summary | Summary of Care ---
Author Name Unknown Organization [facility] Address [address] [place] [address] Phone [phone] Care Team Providers Care Meat Selector Name Role Phone Khoa Hui MD Primary Care Provider + Reason for Visit * Reason Onset Date Comments Order Request 02/21/2024 Encounter Details Date Type Department Care Team (Late st Contact Info) Description 02/21/2024 Telephone Pulmonary Medicine, [facility] [address] [facility] [place] [address] Segundo Norton MD [address] [facility] [address] Order Request Allergies Active Allergy Reactions Criticality Noted Date [...] Nasal Solution (Astelin)Indications: Rhinitis, nonallergic Administer 1 [place] into nostril in the morning and 1 [place] before bedtime. 90 mL 3 04/05/2023 Active Atorvastatin Calcium 40 MG Oral Tablet (Lipitor)Indications: Paroxysmal atrial fibrillation (HCC),Coronary artery disease involving [place] coronary artery of [place] heart without angina pectoris TAKE 1 TABLET IN THE MORNING 90 Tablet 3 05/25/2023 Active Breztri Aerosphere 160-9-4.8 MCG/ACT Inhalation Aerosol (Budeson-Glycopyrrol- Formoterol)Indication s:COPD, group D, by GOLD 2017 classification ([facility]) Inhale 2 Puffs by mouth in the morning and 2 Puffs before bedtime. 32.1 g 3 07/05/2023 Active Isosorbide Mononitrate ER 30 MG Oral Tablet Extended Release 24 Hour (Imdur)Indications:CA D in [place] artery Take 1 Tablet by mouth in the morning. 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 Change to toprol. Start [...] 02/21/2024 2:40 PM EDT Office Visit Family [facility] [address] [address] Khoa Hui MD [address] [address] 02/27/2024 5:10 PM EDT Anticoagulation Pharmacy, [facility] 200 [facility] [place] [address] Pharmacist1, [facility] 200 [facility] [place] [address] 04/26/2024 10:30 AM EST Office Visit Cardiology, [facility] 132 [facility] [place] [address] Kely Pepper PA-C 132 [facility] [place] [address] 05/17/2024 12:30 PM EST Imaging [facility] [address] [place] [address] 05/20/2024 12:40 PM EST Office Visit Pulmonary Medicine, [facility] 132 [facility] [place] [address] Segundo Norton MD [address] [facility] [address] 08/30/2024 12:20 PM EDT Office Visit Family Practice [facility] [address] [facility] [place] [address] Khoa Hui MD 132 [facility] [place] [address] Health Maintenance Due Date Last Done Comments [...] Advance Directives occurred with: Patient Care Teams Meat Selector Relationship Specialty Start Date End Date Khoa Hui MD [address] [place] [address] PCP - General Family Medicine 05/19/14 documented as of this encounter
--- OUTSIDE RECORDS SUMMARY | 2024-03-02 06:27 | External Medical Summary | Summary of Care ---
Author Name Unknown Organization [facility] Address [address] [place] [address] Phone [phone] Care Team Providers Care Dial Polisher Name Role Phone Khoa Hui MD Primary Care Provider + Reason for Visit * Reason Onset Date Comments Order Request 02/21/2024 Durable Medical Equipment 02/21/2024 Oxygen Humidifier bottle Encounter Details Date Type Department Care Team (Late st Contact Info) Description 02/21/2024 Telephone Pulmonary Medicine, [facility] [address] [facility] [place] [address] Segundo Norton MD [address] [facility] [place] [address] Order Request; Durable Medical Equipment (... [...] Nasal Solution (Astelin)Indication s:Rhinitis, nonallergic Administer 1 [place] into nostril in the morning and 1 [place] before bedtime. 90 mL 3 04/05/2023 Active Isosorbide Mononitrate ER 30 MG Oral Tablet Extended Release 24 Hour (Imdur)Indications: CAD in [place] artery Take 1 Tablet by mouth in the morning. 90 Tablet 3 07/05/2023 Active Nitroglycerin 0.4 MG Sublingual Tablet Sublingual (Nitrostat)Indicati ons:CAD in [place] artery Place 1 Tablet under the tongue [...] (HCC) TAKE 1 TABLET DAILY DIRECTED BY [facility] 90 Tablet 3 10/12/2023 Active ProAir HFA 108 (90 Base) MCG/ACT Inhalation Aerosol SolutionIndications :COPD, group D, by GOLD 2017 classification ([facility]) Inhale 2 Puffs by mouth every 4 hours as needed for Cough, Shortness of Breath or Wheezing. 54 g 3 01/24/2023 4 Discontinue d(Refill) Atorvastatin Calcium 40 MG Oral Tablet (Lipitor)Indication s:Paroxysmal atrial fibrillation (HCC),Coronary artery disease involving [place] coronary artery of [place] heart without angina pectoris TAKE 1 TABLET IN THE MORNING 90 Tablet 3 05/25/2023 4 Discontinue d(Medicatio n List Clean Up) Leelee Aerosphere 160-9-4.8 MCG/ACT Inhalation Aerosol (Budeson-Glycopyrro l-Formoterol)Indica tions:COPD, group D, by GOLD 2017 classification ([facility]) Inhale 2 Puffs by [...] GOLD Classification Bladder mass 01/05/2022 Ureteral lesion, [place], right 01/05/2022 Chronic diastolic heart failure 07/01/2021 Pulmonary hypertension 07/01/2021 Lung nodule 07/01/2021 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 Change to [...] EDT Oxygen Humidifier bottle order submitted to [employer]. * Telephone Encounter - Segundo Norton MD [...] Description 02/27/2024 5:10 PM EDT Anticoagulation Pharmacy, [facility] [place] [address] [address] Pharmacist1, [facility] [address] [place] [address] 04/26/2024 10:30 AM EST Office Visit Cardiology, [facility] [address] [facility] [place] [address] Kely Pepper PA-C [address] [place] [address] 05/17/2024 12:30 PM EST Imaging Radiology [facility] 1st [facility] [address] [facility] [place] [address] 05/20/2024 12:40 PM EST Office Visit Pulmonary Medicine, [facility] [address] [facility] [place] [address] Segundo Norton MD [address] [place] [address] 08/30/2024 12:20 PM EDT Office Visit Family Practice [facility] [address] [facility] [place] [address] Khoa Hui MD 132 [facility] [place] [address] 03/18/2025 1:40 PM EDT Office Visit [facility] Practice [facility] [address] [facility] [place] [address] Khoa Hui MD [address] [facility] [place] [address] Health Maintenance Due Date Last Done Comments Alpha-1 Antitrypsin 1961 Pneumococcal Vaccine: 65+ Years (2 of 2 - PCV) 05/13/2010 05/13/2009 Adult Wellness Visit 03/31/2018 03/31/2017 DXA Scan 09/18/2018 09/19/2011, 09/19/2011 Depression Screening 10/26/2019 10/25/2018 *ADVANCE DIRECTIVE NOT ON FILE 07/20/2021 DTap/Tdap Vaccines (2 - Td or Tdap) 09/13/2021 09/14/2011 HbA1c 07/25/2023 07/25/2022, 09/0 09/2019, 09/27/2018 COVID-19 Vaccine (5 - 2024-25 season) 2024 01/26/2022, 03/08/2021, 08/20/2020, Additional history [...] Advance Directives occurred with: Patient Care Teams Dial Polisher Relationship Specialty Start Date End Date Khoa Hui MD [address] [address] PCP - General Family Medicine 05/19/14 documented as of this encounter
--- OUTSIDE RECORDS SUMMARY | 2024-03-02 06:27 | External Medical Summary | Summary of Care ---
Author Name Unknown Organization [facility] Address [address] [place] [address] Phone [phone] Care Team Providers Care Data Center Technician Name Role Phone Khoa Hui MD Primary Care Provider + Reason for Visit * Reason Onset Date Comments Order Request 02/21/2024 Encounter Details Date Type Department Care Team (Late st Contact Info) Description 02/21/2024 Telephone Pulmonary Medicine, [facility] [address] [facility] [place] [address] Segundo Norton MD [address] [facility] [place] [address] Order Request Allergies Active Allergy Reactions [...] Nasal Solution (Astelin)Indications: Rhinitis, nonallergic Administer 1 [place] into nostril in the morning and 1 [place] before bedtime. 90 mL 3 04/05/2023 Active Atorvastatin Calcium 40 MG Oral Tablet (Lipitor)Indications: Paroxysmal atrial fibrillation (HCC),Coronary artery disease involving [place] coronary artery of [place] heart without angina pectoris TAKE 1 TABLET [...] Extended Release 24 Hour (Imdur)Indications:CA D in [place] artery Take 1 Tablet by mouth in the morning. 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 Change to toprol. [...] encounter Miscellaneous Notes * Telephone Encounter - Segundo Norton MD [...] 2:40 PM EDT Office Visit Family Practice [facility] [address] [facility] [place] [address] Khoa Hui MD [address] [place] [address] 02/27/2024 5:10 PM EDT Anticoagulation Pharmacy, [facility] [address] [facility] [place] [address] Pharmacist1, [facility] [address] [facility] [place] [address] 04/26/2024 10:30 AM EST Office Visit Cardiology, [facility] [address] [facility] [place] [address] Kely Pepper PA-C [address] [place] [address] 05/17/2024 12:30 PM EST Imaging Radiology [facility] 1st [facility] [address] [facility] [place] [address] 05/20/2024 12:40 PM EST Office Visit Pulmonary Medicine, [facility] [address] [facility] [place] [address] Segundo Norton MD [address] [place] [address] 08/30/2024 12:20 PM EDT Office Visit Family Practice [facility] [address] [facility] [place] [address] Khoa Hui MD [address] [place] [address] Health Maintenance Due Date Last Done Comments [...] Advance Directives occurred with: Patient Care Teams Data Center Technician Relationship Specialty Start Date End Date Khoa Hui MD [address] [place] [address] PCP - General Family Medicine 05/19/14 documented as of this encounter
--- OUTSIDE RECORDS SUMMARY | 2024-03-02 06:27 | External Medical Summary | Summary of Care ---
Author Name Unknown Organization [facility] Address [address] [place] [address] Phone [phone] Care Team Providers Care Release Of Information Specialist Name Role Phone Khoa Hui MD Primary Care Provider + Reason for Visit * Reason Onset Date Comments Order Request 02/21/2024 Durable Medical Equipment 02/21/2024 Oxygen Humidifier bottle Encounter Details Date Type Department Care Team (Late st Contact Info) Description 02/21/2024 Telephone Pulmonary Medicine, [facility] [address] [facility] [place] [address] Segundo Norton MD [address] [place] [facility] [place] [address] Order Request; Durable Medical Equipment (... [...] Nasal Solution (Astelin)Indications: Rhinitis, nonallergic Administer 1 [place] into nostril in the morning and 1 [place] before bedtime. 90 mL 3 04/05/2023 Active Atorvastatin Calcium 40 MG Oral Tablet (Lipitor)Indications: Paroxysmal atrial fibrillation (HCC),Coronary artery disease involving [place] coronary artery of [place] heart without angina pectoris TAKE 1 TABLET [...] Extended Release 24 Hour (Imdur)Indications:CA D in [place] artery Take 1 Tablet by mouth in the morning. 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 Change to toprol. [...] EDT Oxygen Humidifier bottle order submitted to [employer]. * Telephone Encounter - Segundo Norton MD [...] 2:40 PM EDT Office Visit Family Practice [facility] [address] [place] [address] Khoa Hui MD [address] [place] [address] Arrived 02/27/2024 5:10 PM EDT Anticoagulation Pharmacy, [facility] [address] [place] [address] Pharmacist1, [facility] 200 [facility] [place] [address] 04/26/2024 10:30 AM EST Office Visit Cardiology, [facility] [address] [place] [address] Kely Pepper PA-C [address] [place] [address] 05/17/2024 12:30 PM EST Imaging [facility] [address] [place] [address] 05/20/2024 12:40 PM EST Office Visit Pulmonary Medicine, [facility] [address] [place] [address] Segundo Norton MD [address] [place] [address] 08/30/2024 12:20 PM EDT Office Visit Family [facility] [address] [place] [address] Khoa Hui MD [address] [place] [address] Health Maintenance Due Date Last Done Comments [...] Advance Directives occurred with: Patient Care Teams Release Of Information Specialist Relationship Specialty Start Date End Date Khoa Hui MD [address] [place] [address] PCP - General Family Medicine 05/19/14 documented as of this encounter
--- OUTSIDE RECORDS SUMMARY | 2024-03-02 06:27 | External Medical Summary | Summary of Care ---
Author Name Unknown Organization [facility] Address [address] [place] [address] Phone [phone] Care Team Providers Care Industrial Machinery Mechanic Name Role Phone Khoa Hui MD Primary Care Provider + Reason for Visit * Reason Comments Hospital Follow-Up [facility] 02/05-02/08: acute on chronic respiratory failure due to exacerbation of COPD Encounter Details Date Type Department Care Team (Latest Contact Info) Description 02/21/2024 2:40 PM EDT Office Visit Family [facility] [address] Khoa Hui MD 132 [facility] [place] [address] Hospital discharge follow-up*; HTN, goal below 130/80; Chronic diastolic heart failure (HCC); Localized edema; COPD, group D, by GOLD 2017 classification (HCC); Tobacco use disorder; Paroxysmal atrial fibrillation (HCC); Pulmonary hypertension (HCC); Chronic respiratory failure with hypoxia (HCC); Prediabetes; Lung nodule; 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 Allergies Active Allergy Reactions Criticality Noted Date [...] Nasal Solution (Astelin)Indication s:Rhinitis, nonallergic Administer 1 [place] into nostril in the morning and 1 [place] before bedtime. 90 mL 3 04/05/2023 Active Isosorbide Mononitrate ER 30 MG Oral Tablet Extended Release 24 Hour (Imdur)Indications: CAD in [place] artery Take 1 Tablet by mouth in the morning. 90 Tablet 3 07/05/2023 Active Nitroglycerin 0.4 MG Sublingual Tablet Sublingual (Nitrostat)Indicati ons:CAD in [place] artery Place 1 Tablet under the tongue [...] 10/12/2023 Active Furosemide 20 MG Oral Tablet (Lasix)Indications: HTN, goal below 130/80,Chronic diastolic heart failure (HCC),Localized edema Take 2 Tablets by mouth in the morning. In the morning.. 180 Tablet 2 02/21/2024 Active Breztri Aerosphere 160-9-4.8 MCG/ACT Inhalation Aerosol (Budeson-Glycopyrro l-Formoterol)Indica tions:COPD, group D, by GOLD 2017 classification ([facility]) Inhale 2 Puffs by mouth in the morning and 2 Puffs before bedtime. 32.1 g 3 02/21/2024 Active ProAir HFA 108 (90 Base) MCG/ACT Inhalation Aerosol SolutionIndications :COPD, group D, by GOLD 2017 classification ([facility]) Inhale 2 Puffs by mouth every 4 hours as needed for Cough, Shortness of Breath or Wheezing. 54 g 3 02/21/2024 Active ProAir HFA 108 (90 Base) MCG/ACT Inhalation Aerosol SolutionIndications :COPD, group D, by GOLD 2017 classification ([facility]) Inhale 2 Puffs by mouth every 4 hours as needed for Cough, Shortness of Breath or Wheezing. 54 g 3 01/24/2023 4 Discontinue d(Refill) Atorvastatin Calcium 40 MG Oral Tablet (Lipitor)Indication s:Paroxysmal atrial fibrillation ([facility]),Coronary artery disease involving [place] coronary artery of [place] heart without angina pectoris TAKE 1 TABLET IN THE MORNING 90 Tablet 3 05/25/2023 4 Discontinue d(Medicatio n List Clean Up) Leelee Aerosphere 160-9-4.8 MCG/ACT Inhalation Aerosol (Budeson-Glycopyrro l-Formoterol)Indica tions:COPD, group D, by GOLD 2017 classification ([facility]) Inhale 2 Puffs by mouth in [...] GOLD Classification Bladder mass 01/05/2022 Ureteral lesion, [place], right 01/05/2022 Chronic diastolic heart failure 07/01/2021 Pulmonary hypertension 07/01/2021 Lung nodule 07/01/2021 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 10/25/2018 Prediabetes 07/31/2018 Elevated TSH 07/31/2018 CAD in [place] artery 03/20/2015 Venous insufficiency 03/12/2014 Overview: 03/18 [...] mRNA, LNP-s, No Pre serve, 2-Dose Series ([place]) 01/26/2022,03/08/2021,08/20/2020,07/30 Pneumococcal Polysaccharide PPV23 (Pneumovax) 05/13/2009 Seasonal Influenza, Trivalen t, (IIV3), with Preserv, (Fluzone) 03/15/2011,03/09/2010,02/19/2009 TDAP, Age 7 and older, IM (Adacel) 09/14/2011 documented as of this encounter Social History Tobacco Use Types Packs/Day Years Used Date Smoking Tobacco: Former Cigarettes 1 64 0 02/06/2024 - [birth year]12/1959 Smokeless Tobacco: Never Tobacco Cessation:Counseling Given: Not Answered Comments:02/17/23 currently smoking 3-5 cig/day. Alcohol Use [...] Sign Reading Time Taken Comments Blood Pressure 110/58 02/21/2024 2:48 PM EDT Pulse 65 02/21/2024 2:48 PM EDT Temperature - - Respiratory Rate 22 02/21/2024 2:48 PM EDT Oxygen Saturation 90% 02/21/2024 2:48 PM EDT 3L NC Inhaled Oxygen Concentration - - Weight - - Height - - Body Mass Index - - documented in this encounter Progress Notes * Khoa Hui MD - 02/21/2024 3:35 PM EDT SUBJECTIVE: Lila Rolle is a 79 year old female here for Hospital Follow-Up ([facility] 02/05-02/08: acute on chronic respiratory failure due to exacerbation of COPD ) . Here for hosp f/u 02/05-02/09/24 with resp failure. W/daughter. She was brought to the hospital via EMS for evaluation of worsening shortness of breath and bilateral edema. Patient has been taking 20 mg Lasix as prescribed. Does not not wear oxygen at that point at home despite chronic hypoxia. She had not been doing regular weight checks. Had some redness everlower extremities. Most recent prior echo was June 2023 showing moderate LVH ejection fraction 65-70%. Moderately elevated pulmonary artery pressure and grade 1 diastolic dysfunction. She was supported with oxygen in the hospital. Offered nebulizer treatments and steroids. Diuresed with IV Lasix. Imaging showed known lung nodule that is positive on PET scan. Pulmonary consulted. Echocardiogram was updated showing similar to prior. Treated with antibiotics for suspected lower extremity cellulitis. Was discharged on 40 mg of Lasix however did not have a prescription for this so has been doing 20 mg. Patient was unable to be titrated off oxygen. She met criteria for home oxygen this was set up. Shestates she has not smoked since she was discharged home. She saw Dr. Chang 2 days ago for pulmonary follow-up. She decided after discussion him that she did not want any biopsy of her lung nodule. She did agree to Q three-month lung imaging. She admits that she has difficulty swallowing pills at times. She wants to cut out as many pills aspossible as part of her goals of care. She does not testing for swallowing problems She does have productive cough persisting. She does need refills on her inhalers. ROS: Negative except above. Past Medical History: Diagnosis Date Angioedema 07/16/2012 Atrial fibrillation (HCC) 05/20/2008 converted with IV diltiazem CAD (coronary artery disease) COPD (chronic obstructive pulmonary disease) (HCC) COPD, moderate (HCC) 05/08/2013 emphysema Dyslipidemia, goal LDL below 100 09/10/2010 Elevated TSH 07/31/2018 Emphysema 05/08/2013 HTN, goal below 140/90 Kidney disease, chronic, stage III (GFR 30-59 ml/min) (HCC) 07/29/2013 Per CKD protocol #1 Lung nodule Ovarian cyst 10/09/2008 Paroxysmal atrial fibrillation (HCC) 02/04/2014 Prediabetes 07/31/2018 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 10/25/2018 Pulmonary arterial hypertension (HCC) Smoker unmotivated to quit Tobacco use disorder Ureteral cancer, right (HCC) 03/10/2022 Venous insufficiency 03/12/201403/18 US --no DVT LLE Past Surgical History: Procedure Laterality Date CARDIAC CATH-CARDIOLOGY ONLY 10/09/2018 Dr Naqvi/Dr Marquez--[facility]-1 AME in mid RCA CYSTOSCOPY 06/14/2022 Dr Kenny--no tumor recurrence CYSTOSCOPY/TREAT SML BLADDER TUMOR N/A 2022 CYSTOURETHROSCOPY WITH FULGURATION SMALL BLADDER TUMOR performed by Sánchez Kenny MD at OR [facility] DEFIB/CARDIOVERSION 10/18/2018 for rapid afib [facility]. HYSTEROSCOPY W/BIOPSY AND/OR POLYPECTOMY W/WO D&C 10/16/2008 endo polyp, Roberto LIGATE/CUT OVIDUCT(S) REMOVAL OF APPENDIX age 15 Social History Socioeconomic History Marital status: Spouse name: Not on file Number of children: Not on file Years of education: Not on file Highest education level: Not on file Occupational History Not on file Tobacco Use Smoking status: Former Average packs/day: 1 pack/day for 64.0 years (64.0 ttl pk-yrs) Types: Cigarettes Start date: 02/06/2024 Quit date: 11/12/1957 Years since quittin.3 Smokeless tobacco: Never Tobacco comments: 02/17/23 currently smoking 3-5 cig/day. Vaping Use Vaping status: Never Used Substance and Sexual Activity Alcohol use: Yes [...] time w/2 local grandkids and others in [place]. 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 Entered by: Matthew Palacio MD 06/21/2012 Lives alone in a townhouse. Very involved with daughter and grandkids No pets No mold Social Determinants of Health Financial Resource Strain: Low Risk (02/03/2023) Financial Resource Strain Do you have any trouble paying for your medications, or do you think you might in the future? (Adult - for ages 18 years and over): No Does your family have trouble paying for medicine? (Household - for ages 0-17 years): Not on file Food Insecurity: No Food Insecurity (02/03/2023) Food Insecurity Do you need food for this week? (Adult - for ages 18 years and over): No Are you able to get enough food for your family? (Household - for ages 0-17 years): Not on file Does your family need food this week? (Household - for ages 0-17 years): Not on file Do you always have enough food for your family? (Household - for ages 0-17 years): Not on file Transportation Needs: No Transportation Needs (02/03/2023) Transportation Needs Do you have trouble getting a ride to medical visits or work? (Adult - for ages 18 years and over):Never True Does your family have a hard time getting a ride to doctors visits? (Household - for ages 0-17 years): Not on file Has lack of transportation kept you from medical appointments, meetings, work, or from getting things needed for daily living? Check all that apply. (Adult - for ages 18 years and over): Not on file Do you (or your family) have trouble finding or paying for a ride (transportation)? (Household - for ages 0-17 years): Not on file Social Connections: Unknown (02/05/2024) Social Connections How often do you feel lonely or isolated from those around you? (Adult - for ages 18 years and over): Not on file Housing Stability: Low Risk (02/03/2023) Housing Stability Do you currently live in a senior care or have no steady place to sleep at night? (Adult - for ages 18 years and over): No Do you think you are at risk of becoming homeless? (Adult - for ages 18 years and over): No Does your family worry about paying for your home or becoming homeless? (Household - for ages 0-17 years): Not on file Are you homeless or worried that you might be in the future? (Adult - for ages 18 years and over): Not on file Are you (or your family) homeless or worried that you might be in the future? (Household - for ages0-17 years): Not on file Family History Problem Relation Name Age of Onset Gastro-intestinal disorder Mother gastric hemorrhage Diabetes Father diet controlled Cancer Father colon age 79 Breast Cancer Sister breast age 64, mets lung CA Heart Disorder Brother age 76 Diabetes Brother Current Outpatient Medications Medication Sig Dispense Refill Furosemide 20 MG Oral Tablet (Lasix) Take 2 Tablets by mouth in the morning. In the morning.. 180 Tablet 2 Breztri Aerosphere 160-9-4.8 MCG/ACT Inhalation Aerosol (Lxyvvqf-Hatwgmynsre-Qgsxhhlkrs) Inhale 2 Puffs by mouth in the morning and 2 Puffs before bedtime. 32.1 g 3 ProAir HFA 108 (90 Base) MCG/ACT Inhalation Aerosol Solution Inhale 2 Puffs by mouth every 4 hours as needed for Cough, Shortness of Breath or Wheezing. 54 g 3 Aspirin EC 81 MG Oral Tablet Delayed Release Take 1 Tablet by mouth in the morning. Azelastine HCl 0.1 % Nasal Solution (Astelin) Administer 1 [place] into nostril in the morning and 1 [place] before bedtime. 90 mL 3 Isosorbide Mononitrate ER 30 MG Oral Tablet Extended Release 24 Hour (Imdur) Take 1 Tablet by mouthin the morning. 90 Tablet 3 Nitroglycerin 0.4 MG Sublingual Tablet Sublingual (Nitrostat) Place 1 Tablet under the tongue every5 minutes as needed for Pain, Chest. 25 Tablet 3 Spironolactone 25 MG Oral Tablet (Aldactone) TAKE 1 TABLET IN THE MORNING 90 Tablet 3 Sotalol HCl 80 MG Oral Tablet (Betapace) TAKE 1 TABLET TWICE A DAY 180 Tablet 1 Warfarin Sodium 2.5 MG Oral Tablet (Coumadin) TAKE 1 TABLET DAILY DIRECTED BY ANTICOAG CLINIC 90Tablet 3 No current facility-administered medications for this visit. Physical: BP 110/58 | Pulse 65 | Resp 22 | SpO2 90% Comment: 3L NC General-No apparent Distress Head, Eyes, Ears, Nose, Throat--Normocephalic, atraumatic Neck-Supple Lymph-no lymphadenopathy Lungs-Clear to Auscultation bilaterally Cardiovascular--Regular rate & Rhythm, +s1, s2, no murmur Abdomen-soft, nontender, nondistended + bowel sounds Extremities--pitting edema L>R calf skin color changes, no warmth Neuro-alert & oriented x3 (Z09) Hospital discharge follow-up (primary encounter diagnosis) Plan: as above--COPD resp failure, pulm HTN , CHF etc (I10) HTN, goal below 130/80 Plan: Furosemide 20 MG Oral Tablet (Lasix), MAGNESIUM Restart 40mg lasix Teri BMP--likely would need K (I50.32) Chronic diastolic heart failure (HCC) Plan: Furosemide 20 MG Oral Tablet (Lasix), BNP, NT-PRO TTE UTD (R60.0) Localized edema Plan: Furosemide 20 MG Oral Tablet (Lasix) (J44.9) COPD, group D, by GOLD 2017 classification (HCC) Plan: [place] Aerosphere 160-9-4.8 MCG/ACT Inhalation Aerosol (Hdnxcug-Cplvqdrwspr-Srsxvjzxvn), ProAir HFA 108 (90 Base) MCG/ACT Inhalation Aerosol Solution (F17.200) Tobacco use disorder Plan: quit this month (I48.0) Paroxysmal atrial fibrillation (HCC) Plan: cont anticoag, declined NOAC (I27.20) Pulmonary hypertension (HCC) Plan: cont med mgmt (J96.11) Chronic respiratory failure with hypoxia (HCC) Plan: cont O2 (R73.03) Prediabetes Plan: counseled on diet/exercise Start shake- for protein--try [place] Life CAD-/hyperlipidemia--wants to stop atorvastatin--d/c'd Discussed Goals of care, wants minimal intervention, consider POLST, declined Palliative Care consult. CAD--/hx stent Elects stop statin Elects to keep ASA +warfarin for now. I spent a total of Greater than 55 mins (exact time 55 mins) on the date of service in preparation,delivery, and documentation of the care provided to Lila Rolle excluding any time spent in the performance of separately billed services or time spent by another provider/QHP. (This note was completed using the dictation program Fluency Direct. As such, there may be misspellings, word substitutions, or other variations that should not change the essence of the clinical content of this encounter note.If there is need for further clarification, please direct questions to the provider listed above.) Khoa Hui MD documented in this encounter Nursing Notes * Florence Smith LPN - 02/21/2024 3:01 PM EDT The patient has been properly identified by confirmation of name and date of . Chief Complaint Patient presents with Hospital Follow-Up [facility] 02/05-02/08: acute on chronic respiratory failure due to exacerbation of COPD Pt on 3L o2 via NC. States she has been monitoring O2 at home. States her numbers are low 90's withO2. When she removes O2, oxygen level drops to low 70's. * Florence Smith LPN - 02/21/2024 2:42 PM EDT The patient has been properly identified by confirmation of name and date of . Chief Complaint Patient presents with Hospital Follow-Up [facility] 02/05-02/08: acute on chronic respiratory failure due to exacerbation of COPD documented in this encounter Plan of Treatment Upcoming Encounters Date Type Department Care Team (Late st Contact Info) Description 02/27/2024 5:10 PM EDT Anticoagulation Pharmacy, [facility] [address] [place] [address] Pharmacist1, [facility] [address] [facility] [place] [address] 04/26/2024 10:30 AM EST Office Visit Cardiology, [facility] [address] [facility] [place] [address] Kely Pepper PA-C [address] [place] [address] 05/17/2024 12:30 PM EST Imaging Radiology [facility] [address] [place] [address] 05/20/2024 12:40 PM EST Office Visit Pulmonary Medicine, [facility] [address] [facility] [place] [address] Segundo Clarke MD [address] [facility] [address] 08/30/2024 12:20 PM EDT Office Visit Family Practice [facility] [address] [place] [address] Khoa Hui MD [address] [place] [address] 03/18/2025 1:40 PM EDT Office Visit Family Practice [facility] [address] [facility] [place] [address] Khoa Hui MD [address] [place] [address] Scheduled Orders Name Type Priority Associated Diagnoses Orde r Schedule BNP, NT-PRO Lab Routine Chronic diastolic heart failure (HCC) Expected: 02/21/2024 (Approximate), Expires: 02/20/2025 MAGNESIUM Lab Routine HTN, goal below 130/80 Expected: 02/21/2024 (Approximate), Expires: 02/20/2025 Health Maintenance Due Date Last Done Comments [...] as of this encounter Visit Diagnoses Diagnosis Hospital discharge follow-up- Primary Other follow-up examination HTN, goal below 130/80 Unspecified essential hypertension Chronic diastolic heart failure (HCC) Chronic diastolic heart failure Localized edema Edema COPD, group D, by GOLD 2017 classification (HCC) Tobacco use disorder Paroxysmal atrial fibrillation (HCC) Atrial fibrillation Pulmonary hypertension (HCC) Other chronic pulmonary heart diseases Chronic respiratory failure with hypoxia (HCC) Chronic respiratory failure Prediabetes Other abnormal glucose Lung nodule Solitary pulmonary nodule 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 documented in this encounter Advance Directives * [...] Advance Directives occurred with: Patient Care Teams Industrial Machinery Mechanic Relationship Specialty Start Date End Date Khoa Hui MD [address] [facility] [place] [address] PCP - General Family Medicine 05/19/14 documented as of this encounter"
--- OUTSIDE RECORDS SUMMARY | 2024-03-02 06:28 | External Medical Summary | Summary of Care ---
Author Name Unknown Organization [facility] Address [address] [place] [address] Phone [phone] Care Team Providers Care Joist Setter Name Role Phone Khoa Hui MD Primary Care Provider + Reason for Visit * Reason Onset Date Comments Durable Medical Equipment 02/20/2024 Humidi fier Encounter Details Date Type Department Care Team (Late st Contact Info) Description 02/20/2024 Telephone Pulmonary Medicine Raymon Hagan [address] [place] [phone] Segundo Clarke MD [address] [place] [address] Durable Medical Equipment (Humidifier) Allergies Active Allergy Reactions Criticality Noted Date Comments Marlo Inhibitors Cough 02/23/2009 Valsartan Edema face/lips/tongue High 05/17/2012 Dog Dander Other (Please comment) High 06/11/2015 Congestion, SOB Influenza Vac Split Quad Other (Please comment) 03/15/2012 Sinus pressure, drainage after flu shot on 2 occasions Levofloxacin 10/07/2013 Itching; hives on trunk and lower extremities Nickel Rash 05/20/2008 documented as of this encounter (statuses as of 02/20/2024) Medications Medication Sig Dispensed Refills Start Date End Date Status Aspirin EC 81 MG Oral Tablet Delayed Release Take 1 Tablet by mouth in the morning. 01/21/2022 Active ProAir HFA 108 (90 Base) MCG/ACT Inhalation Aerosol SolutionIndications:C OPD, group D, by GOLD 2017 classification ([facility]) Inhale 2 Puffs by mouth every 4 hours as needed for Cough, Shortness of Breath or Wheezing. 54 g 3 01/24/2023 Active Azelastine HCl 0.1 % Nasal Solution (Astelin)Indications: Rhinitis, nonallergic Administer 1 [place] into nostril in the morning and 1 [place] before bedtime. 90 mL 3 04/05/2023 Active Atorvastatin Calcium 40 MG Oral Tablet (Lipitor)Indications: Paroxysmal atrial fibrillation (HCC),Coronary artery disease involving [place] coronary artery of [place] heart without angina pectoris TAKE 1 TABLET IN THE MORNING 90 Tablet 3 05/25/2023 Active Breztri Aerosphere 160-9-4.8 MCG/ACT Inhalation Aerosol (Budeson-Glycopyrrol- Formoterol)Indication s:COPD, group D, by GOLD 2017 classification ([facility]) Inhale 2 Puffs by mouth in the morning and 2 Puffs before bedtime. 32.1 g 3 07/05/2023 Active Isosorbide Mononitrate ER 30 MG Oral Tablet Extended Release 24 Hour (Imdur)Indications:CA D in [place] artery Take 1 Tablet by mouth in the morning. 90 Tablet 3 07/05/2023 Active Nitroglycerin 0.4 MG Sublingual Tablet Sublingual (Nitrostat)Indication s:CAD in [place] artery Place 1 Tablet under the tongue [...] as of this encounter (statuses as of 02/20/2024) Active Problems Problem Noted Date Diagnosed Date Chronic respiratory failure with hypoxia 024 COPD, group D, by GOLD 2017 classification 05/16 Overview: Per COPD GOLD Classification Bladder mass 01/05/2022 Ureteral lesion, [place], right 01/05/2022 Chronic diastolic heart failure 07/01/2021 Pulmonary hypertension 07/01/2021 Lung nodule 07/01/2021 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 10/25/2018 Prediabetes 07/31/2018 Elevated TSH 07/31/2018 CAD in [place] artery 03/20/2015 Venous insufficiency 03/12/2014 Overview: 03/18 --no DVT LLE Paroxysmal atrial fibrillation 02/04/2014 Overview: 01/16-[facility] hosp w/rapid response. Change to toprol. [...] as of this encounter (statuses as of 02/20/2024) Resolved Problems Problem Noted Date Diagnosed Date [...] as of this encounter (statuses as of 02/20/2024) Immunizations Name Administration Dates Next Due COVID-19 [...] 18 years and over) Not on file 3 Are you (or your family) mimi eless [...] Telephone Encounter - Khushi Lovett OSA - 02/20/2024 12:15 PM EDT Order for Oxygen humidifier submitted to [employer]. documented in this encounter Plan of Treatment Upcoming Encounters Date Type Department Care Team (Latest Contact Info) Description 02/20/2024 5:10 PM EDT Anticoagulation Pharmacy, [facility] [address] [place] [address] Pharmacist1, [facility] [address] [facility] [place] [address] Paroxysmal atrial fibrillation (HCC)* 02/21/2024 2:40 PM EDT Office Visit Family Practice [facility] [address] [place] [address] Khoa Hui MD [address] [place] [address] 04/26/2024 10:30 AM EST Office Visit Cardiology, [facility] [address] [place] [address] Kely Pepper PA-C [address] [place] [address] 05/17/2024 12:30 PM EST [facility] [address] [place] [address] 05/20/2024 12:40 PM EST Office Visit Pulmonary Medicine, [facility] [address] [place] [address] Segundo Clarke MD [address] [place] [address] 08/30/2024 12:20 PM EDT Office Visit Family Practice [facility] [address] [place] [address] Khoa Hui MD [address] [place] [address] Health Maintenance Due Date Last Done Comments [...] Advance Directives occurred with: Patient Care Teams Joist Setter Relationship Specialty Start Date End Date Khoa Hui MD [address] [place] [address] PCP - General Family Medicine 05/19/14 documented as of this encounter
--- OUTSIDE RECORDS SUMMARY | 2024-03-02 06:28 | External Medical Summary | Summary of Care ---
Author Name Unknown Organization [facility] Address [address] [place] [address] Phone [phone] Care Team Providers Care Paramedic Name Role Phone Khoa Hui MD Primary Care Provider + Reason for Visit * Reason Comments Dosage Adjustment Via Phone (anticoag Cl inic) Encounter Details Date Type Department Care Team (Latest Contact Info) Description 02/20/2024 5:10 PM EDT Anticoagulation Pharmacy, [facility] [address] [facility] [place] [address] Pharmacist1, [facility] [address] [facility] [place] [address] Paroxysmal atrial fibrillation (HCC)* Allergies Active Allergy [...] D, by GOLD 2017 classification ([facility]) Inhale 2 Puffs by mouth every 4 hours as needed for Cough, Shortness of Breath or Wheezing. 54 g 3 01/24/2023 Active Azelastine HCl 0.1 % Nasal Solution (Astelin)Indications: Rhinitis, nonallergic Administer 1 [place] into nostril in the morning and 1 [place] before bedtime. 90 mL 3 04/05/2023 Active Atorvastatin Calcium 40 MG Oral Tablet (Lipitor)Indications: Paroxysmal atrial fibrillation (HCC),Coronary artery disease involving [place] coronary artery of [place] heart without angina pectoris TAKE 1 TABLET IN THE MORNING 90 Tablet 3 05/25/2023 Active Breztri Aerosphere 160-9-4.8 MCG/ACT Inhalation Aerosol (Budeson-Glycopyrrol- Formoterol)Indication s:COPD, group D, by GOLD 2017 classification ([facility]) Inhale 2 Puffs by mouth in the morning and 2 Puffs before bedtime. 32.1 g 3 07/05/2023 Active Isosorbide Mononitrate ER 30 MG Oral Tablet Extended Release 24 Hour (Imdur)Indications:CA D in [place] artery Take 1 Tablet by mouth in the morning. 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 Change to toprol. [...] Progress Notes * Howard Sheth RPh - 02/20/2024 2:56 PM EDT Images from the original note were not included. Patient Phone Numbers Patient is getting care from [facility] PH: [phone] FAX: [phone] -- Melissa [phone] (nurse in home) Contacts Contact Date/Time Type Contact Phone/Fax 02/20/2024 10:02 AM EDT Phone (Incoming) [facility] [phone] Description Given patients aversion to self injections and lower predicted risk Per Cardiology (see 01/13/22 note) okay with NO lovenox bridge. INR Result As of 02/20/2024 INR goal: 2.0-3.0 INR used for dosin.2 (02/20/2024) Patient Findings Negatives: Signs/symptoms of thrombosis, Signs/symptoms of bleeding, Change in health, Change in alcohol use, Change in activity, Upcoming invasive procedure, Missed doses, Extra doses, Change in medications, Change in diet/appetite, Bruising Warfarin Plan As of 02/20/2024 Full warfarin instructions: 1.25 mg every e, Sat; 2.5 mg all other days Next INR check: 02/27/2024 Repeat PT/INR in 1 week(s) Weekly dose: decreased I spent a total of 10-19 minutes (exact time 15 mins) on the date of service in preparation, delivery, and documentation of the care provided to Lila Rolle excluding any time spent in the performanceof separately billed services or time spent by another provider/QHP. Howard Anderson RPh, CACP, CDE Clinical Pharmacist [facility] 02/20/2024, 2:56 PM * Pat Goel CPhT - 02/20/2024 10:03 AM EDT Caller's name: [facility] Preferred call back number(OFFICE NUMBER FOR HH): [phone] Reason for call: nursing facility[facility], calling with INR results. Result is 3.2 which was drawn on 02/20/2024. Patient is not being discharged. Thank you, Pat Goel CPhT Combatant Diver Qualified II [facility] ([facility]) 02/20/2024,10:03 AM documented in this encounter Plan of Treatment Upcoming Encounters Date Type Department Care Team (Late st Contact Info) Description 02/21/2024 2:40 PM EDT Office Visit Family Practice [facility] [address] [address] Khoa Hui MD [address] [place] [address] 02/27/2024 5:10 PM EDT Anticoagulation Pharmacy, [facility] [address] [facility] [place] [address] Pharmacist1, [facility] [address] [facility] [place] [address] 04/26/2024 10:30 AM EST Office Visit Cardiology, [facility] [address] [address] Kely Pepper PA-C [address] [address] 05/17/2024 12:30 PM EST Imaging Radiology [facility] 1st Floor, [place] [address] [address] 05/20/2024 12:40 PM EST Office Visit Pulmonary Medicine, [facility] [address] [address] Segundo Clarke MD [address] [place] [address] 08/30/2024 12:20 PM EDT Office Visit Family Practice [facility] [address] [place] [address] Khoa Hui MD [address] [place] [address] Health Maintenance Due Date Last Done Comments [...] Date/Time Associated Diagnosis Comments OUTSIDE LAB-PT/INR Routine 02/20/2024 documented in this encounter Results * OUTSIDE LAB-PT/INR (02/20/2024) INR-OUTSIDE LAB 3.2 02/20/2024 History Per Patient LABORATORY documented in this [...] Advance Directives occurred with: Patient Care Teams Paramedic Relationship Specialty Start Date End Date Khoa Hui MD [address] [place] [address] PCP - General Family Medicine 05/19/14 documented as of this encounter
--- OUTSIDE RECORDS SUMMARY | 2024-03-02 06:28 | External Medical Summary | Summary of Care ---
Author Name Unknown Organization [facility] Address [address] [place] [address] Phone [phone] Care Team Providers Care Sewer Line Photo Inspector Name Role Phone Koha Hui MD Primary Care Provider + Reason for Visit * Reason Onset Date Comments Order Request 02/21/2024 Encounter Details Date Type Department Care Team (Late st Contact Info) Description 02/21/2024 Telephone Pulmonary Medicine, [facility] [address] [facility] [place] [address] Segundo Clarke MD [address] [place] [facility] [place] [place] [address] Order Request Allergies Active Allergy Reactions [...] Nasal Solution (Astelin)Indications: Rhinitis, nonallergic Administer 1 [place] into nostril in the morning and 1 [place] before bedtime. 90 mL 3 04/05/2023 Active Atorvastatin Calcium 40 MG Oral Tablet (Lipitor)Indications: Paroxysmal atrial fibrillation (HCC),Coronary artery disease involving [place] coronary artery of [place] heart without angina pectoris TAKE 1 TABLET [...] Extended Release 24 Hour (Imdur)Indications:CA D in [place] artery Take 1 Tablet by mouth in the morning. 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 Change to toprol. [...] Miscellaneous Notes * Telephone Encounter - Segundo Clarke MD - 02/21/2024 11:29 AM EDT Is [...] 2:40 PM EDT Office Visit Family Practice [facility] [address] [address] Khoa Hui MD [address] [place] [address] 02/27/2024 5:10 PM EDT Anticoagulation Pharmacy, [facility] [address] [facility] [place] [address] Pharmacist1, [facility] [address] [facility] [place] [address] 04/26/2024 10:30 AM EST Office Visit Cardiology, [facility] [address] [address] Kely Pepper PA-C [address] [place] [address] 05/17/2024 12:30 PM EST Imaging Radiology [facility] 1st [facility] [place] [address] [facility] [place] [address] 05/20/2024 12:40 PM EST Office Visit Pulmonary Medicine, [facility] [place] [address] Segundo Clarke MD [address] [address] 08/30/2024 12:20 PM EDT Office Visit Family Practice [facility] [address] [facility] [place] [address] Khoa Hui MD [address] [facility] [place] [address] Health Maintenance Due Date Last Done Comments [...] Advance Directives occurred with: Patient Care Teams Sewer Line Photo Inspector Relationship Specialty Start Date End Date Khoa Hui MD [address] [place] [address] PCP - General Family Medicine 05/19/14 documented as of this encounter
--- OUTSIDE RECORDS SUMMARY | 2024-03-02 06:28 | External Medical Summary | Summary of Care ---
Author Name Unknown Organization [facility] Address [address] [place] [address] Phone [phone] Care Team Providers Care Real Estate Firm Manager Name Role Phone Khoa Hui MD Primary Care Provider + Reason for Visit * Reason Onset Date Comments Order Request 02/21/2024 Encounter Details Date Type Department Care Team (Late st Contact Info) Description 02/21/2024 Telephone Pulmonary Medicine, [facility] [address] [facility] [place] [address] Segundo Clarke MD [address] [place] [facility] [place] [address] Order Request Allergies Active Allergy Reactions [...] Nasal Solution (Astelin)Indications: Rhinitis, nonallergic Administer 1 [place] into nostril in the morning and 1 [place] before bedtime. 90 mL 3 04/05/2023 Active Atorvastatin Calcium 40 MG Oral Tablet (Lipitor)Indications: Paroxysmal atrial fibrillation (HCC),Coronary artery disease involving [place] coronary artery of [place] heart without angina pectoris TAKE 1 TABLET IN THE MORNING 90 Tablet 3 05/25/2023 Active Breztri Aerosphere 160-9-4.8 MCG/ACT Inhalation Aerosol (Budeson-Glycopyrrol- Formoterol)Indication s:COPD, group D, by GOLD 2017 classification ([facility]) Inhale 2 Puffs by mouth in the morning and 2 Puffs before bedtime. 32.1 g 3 07/05/2023 Active Isosorbide Mononitrate ER 30 MG Oral Tablet Extended Release 24 Hour (Imdur)Indications:CA D in [place] artery Take 1 Tablet by mouth in the morning. 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 Change to toprol. Start [...] from 02/18 * Telephone Encounter - Segundo Clarke MD [...] 2:40 PM EDT Office Visit Family Practice [facility] [address] [address] Khoa Hui MD [address] [place] [address] 02/27/2024 5:10 PM EDT Anticoagulation Pharmacy, [facility] [address] [place] [address] [address] Pharmacist1, [facility] [address] [place] [address] 04/26/2024 10:30 AM EST Office Visit Cardiology, [facility] [address] [place] [address] Kely Pepper PA-C [address] [place] [address] 05/17/2024 12:30 PM EST Imaging Radiology [facility] 1st [facility] [address] [facility] [place] [address] 05/20/2024 12:40 PM EST Office Visit Pulmonary Medicine, [facility] [address] [facility] [place] [address] Segundo Clarke [facility] [address] [facility] [address] 08/30/2024 12:20 PM EDT Office Visit Family Practice [facility] [address] [facility] [place] [address] Khoa Hui MD [address] [place] [address] Health Maintenance Due Date Last Done Comments [...] Advance Directives occurred with: Patient Care Teams Real Estate Firm Manager Relationship Specialty Start Date End Date Khoa Hui MD [address] [place] [address] PCP - General Family Medicine 05/19/14 documented as of this encounter
--- OUTSIDE RECORDS SUMMARY | 2024-03-02 06:28 | External Medical Summary | Summary of Care ---
Author Name Unknown Organization [facility] Address [address] [place] [address] Phone [phone] Care Team Providers Care Nursing Staffing Coordinator Name Role Phone Khoa Hui MD Primary Care Provider + Reason for Referral * Precert (Within 10 days (routine)) - Authorized Specialty Diagnoses / Procedures Referred By Contac t Referred To Contact Radiology Diagnoses Chronic respiratory failure with hypoxia (HCC) Procedures CT CHEST WO CONTRAST Segundo Clarke MD [address] [id number] Referral ID Status Reason Start Date Expiration Date V isits Requested Visits Authorized [id number] Authorized 05/20/2024 999 999 Reason for Visit * Reason Comments Follow Up Return pulm. Feels l ryne o2 not working for her. Nose feels like burning sensation. Nose keeps running and sneezing. Encounter Details Date Type Department Care Team (Late st Contact Info) Description 02/19/2024 12:40 PM EDT Office Visit Pulmonary Medicine, [facility] [address] [facility] [place] [address] Segundo Clarke MD [address] [id number] Chronic respiratory failure with hypoxia (HCC)* Allergies Active Allergy Reactions Criticality Noted [...] as of this encounter (statuses as of 02/19/2024) Medications Medication Sig Dispensed Refills Start Date End Date Status Aspirin EC 81 MG Oral Tablet Delayed Release Take 1 Tablet by mouth in the morning. 01/21/2022 Active ProAir HFA 108 (90 Base) MCG/ACT Inhalation Aerosol SolutionIndications:C OPD, group D, by GOLD 2017 classification ([facility]) Inhale 2 Puffs by mouth every 4 hours as needed for Cough, Shortness of Breath or Wheezing. 54 g 3 01/24/2023 Active Azelastine HCl 0.1 % Nasal Solution (Astelin)Indications: Rhinitis, nonallergic Administer 1 [place] into nostril in the morning and 1 [place] before bedtime. 90 mL 3 04/05/2023 Active Atorvastatin Calcium 40 MG Oral Tablet (Lipitor)Indications: Paroxysmal atrial fibrillation (HCC),Coronary artery disease involving [place] coronary artery of [place] heart without angina pectoris TAKE 1 TABLET IN THE MORNING 90 Tablet 3 05/25/2023 Active Breztri Aerosphere 160-9-4.8 MCG/ACT Inhalation Aerosol (Budeson-Glycopyrrol- Formoterol)Indication s:COPD, group D, by GOLD 2017 classification ([facility]) Inhale 2 Puffs by mouth in the morning and 2 Puffs before bedtime. 32.1 g 3 07/05/2023 Active Isosorbide Mononitrate ER 30 MG Oral Tablet Extended Release 24 Hour (Imdur)Indications:CA D in [place] artery Take 1 Tablet by mouth in the morning. 90 Tablet 3 07/05/2023 Active Nitroglycerin 0.4 MG Sublingual Tablet Sublingual (Nitrostat)Indication s:CAD in [place] artery Place 1 Tablet under the tongue [...] as of this encounter (statuses as of 02/19/2024) Active Problems Problem Noted Date Diagnosed Date Chronic respiratory failure with hypoxia 024 COPD, group D, by GOLD 2017 classification 05/16 Overview: Per COPD GOLD Classification Bladder mass 01/05/2022 Ureteral lesion, [place], right 01/05/2022 Chronic diastolic heart failure 07/01/2021 Pulmonary hypertension 07/01/2021 Lung nodule 07/01/2021 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 10/25/2018 Prediabetes 07/31/2018 Elevated TSH 07/31/2018 CAD in [place] artery 03/20/2015 Venous insufficiency 03/12/2014 Overview: 03/18 US --no DVT LLE Paroxysmal atrial fibrillation 02/04/2014 Overview: 01/16-[facility] hosp w/rapid response. Change to toprol. Start [...] as of this encounter (statuses as of 02/19/2024) Resolved Problems Problem Noted Date Diagnosed Date [...] as of this encounter (statuses as of 02/19/2024) Immunizations Name Administration Dates Next Due COVID-19 [...] Sign Reading Time Taken Comments Blood Pressure 120/70 02/19/2024 12:58 PM EDT Pulse 50 02/19/2024 12:58 PM EDT Temperature 36.3 C (97.4 F) 02/19/2024 12:58 PM E DT Respiratory Rate 16 02/19/2024 12:58 PM EDT Oxygen Saturation 95% 02/19/2024 12:58 PM EDT ra-rest Inhaled Oxygen Concentration - - Weight 61.7 kg (136 lb) 02/19/2024 12:58 PM EDT Height 165.1 cm (5' 5") 02/19/2024 12:58 PM EDT Body Mass Index 22.63 02/19/2024 12:58 PM EDT documented in this encounter Progress Notes * Segundo Clarke MD - 02/19/2024 12:43 PM EDT Images from the original note were not included. 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 smoking status Enlarging Left upper lobe nodule 1.8 X 2.3 cm, SUV 5.6 on PET scan 01/22/2024 COPD, severe Chronic respiratory failure with hypoxia, on 3 LPM oxygen therapy Current bronchodilator regimen: BREZTRI, rescue albuterol Pulmonary hypertension Nonallergic rhinitis A Fib Warfarin Therapy Status Physical examination: Frail elderly female Dry oral mucosa No JVD Coarse breath sounds with scattered coarse wheezing, scattered rhonchi, no dullness S1, S2, no murmur Soft, nontender abdomen 4+ pitting lower extremity edema with erythema Nonlateralizing Neuro examination Left upper lobe nodule findings and PET scan findings were discussed in detail with patient. Pt does not want tissue diagnostic work up, or Oncology evaluation/Rx including chemo or Radiation therapy regarding SUSHIL nodule. Agreeable to conservative moniotring Requesting POC due to frail body habitus, unable carry oxygen cylinders POC testing ordered Continue with current bronchodilator regimen Repeat CT scan chest in 3 months Call with change in respiratory symptoms status Pulmonary clinic follow-up 3 months Follow Up: Return in about 3 months (around 05/20/2024) for Clinic Visit. 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 Pt does n Follow Up: Return in about 3 months (around 05/20/2024) for Clinic Visit. | For: Clinic Visit | Check-out note: ot want tissue diagnostic work up, or Oncology evaluation/Rx including chemo or Radiation therapy regarding SUSHIL nodule. Agreeable to conservative moniotring Requesting POC due to frail body habitus, unable carry oxygen cylinders POC testing ordered Continue with current bronchodilator regimen Repeat CT scan chest in 3 months Call with change in respiratory symptoms status Pulmonary clinic follow-up [address] SKULL BASE TO MID-THIGH FDG - 01/22/2024 HISTORY growing left lung apex lesion, hx smoking, was 8mm now [id number] on 01/03/24 CT at [facility]. suspect lung CA COMPARISON PET-CT 03/01/2022; chest CT from 02/08/2023. Chest: *Hypermetabolic left upper lobe nodule measures up to 1.8 x 2.3 cm, SUV 5.6, (previously measuring 6 x 8 mm on 02/2022). *No metabolically active axillary, hilar, or mediastinal lymphadenopathy. IMPRESSION Enlarged, hypermetabolic left upper lobe nodule measuring up to 2.3 cm is concerning for primary lung malignancy. No hypermetabolic hilar/mediastinal lymphadenopathy identified. PET CT 01/22/[address] 01/22/24 CT Chest 02/2023 PFT 06/2021: HISTORY: Patient is 76-year-old female , with about 31 pack years smoking history. BMI is 26.4.SPIROGRAM: Shows pre bronchodilator FEV1 to be decreased at 44% of predicted ( 0.96 L), FVC is decreased at 75% of predicted ( 2.13 L). FEV1/FVC ratio is decreased. Post bronchodilator FEV1 is decreased. There is no significant bronchodilator response.SMALL AIRWAYS: The flow of air at 25 - 75% of vital capacity is decreasedCONCLUSION: spirogram shows evidence of severe obstructive ventilatory impairment.This interpretation has been electronically signed: Delroy Vasquez 06/28/2021 05:58:23 PM Segundo Clarke MD Subjective CC: Chief Complaint Patient presents with Follow Up Return pulm. Feels like o2 not working for her. Nose feels like burning sensation. Nose keeps running and sneezing. HPI: Nursing Notes: Sarina Valiente LPN 02/19/24 1305 Signed Chief Complaint Patient presents with Follow Up Return pulm. Feels like o2 not working for her. Nose feels like burning sensation. Nose keeps running and sneezing. Interm History/Respiratory Symptoms Cough: yes-white/clear phlegm. Hemoptysis: no Sinus Symptoms: yes-drainage. Hospitalizations: yes- ED Trips: no Triggers: perfume, dust, omta Nocturnal: slightly elevated at night CPAP/BiPAP/O2: 02 3L at night. DME Supplier: Flu Vaccine: unknown Pneumovax: 2009 Prevnar: none COVID 19: x4. MMRC Dyspnea Scale = 4 (I am too breathless to leave the house or I am breathless when dressing) Patient-Entered [facility] 2019 Msp: Part I And Employment Question 02/19/2024 12:34 PM EDT - Filed by Patient Are you currently employed? No, Retired Date of usp: Do you have a spouse who is currently employed? No, Not (single, , ) Medicare requires that we periodically ask the following questions. Are you receiving benefits under the Black Lung Benefits Act (BL)? No Was the illness/injury due to a work-related accident/condition? No Are you receiving treatment for an injury or illness covered under no-fault (and/or medical-paymentcoverage) including premises or automobile? No Are you receiving treatment for an injury, or illness, for which another republican may be liable? No Are you entitled to Medicare based on: Age? Yes End-stage renal disease (ESRD)? No Patient-Entered Msp: Cvw-Zbsnrsnjui-Ijqc Primary Branch Calculation (range: 0 - 5) 1 Do you have group health plan (GHP) coverage based on your own current employment or the employmentof your spouse? No Travel Screening Question 02/19/2024 12:34 PM EDT - Filed by Patient Do you have any of the following new or worsening symptoms? None of these Have you recently been in contact with someone who was sick? No / Unsure Myc Visit Accident Related Question Question 02/19/2024 12:34 PM EDT - Filed by Patient Is this visit related to an accident? (i.e work, motor vehicle) No Mmrc Cat Question 02/19/2024 12:53 PM EDT - Filed by Sarina Valiente LPN When do you become breathless? (4) I am too breathless to leave the house or I am breathless when dressing How frequently do you cough? (1) Do you have phlegm in your chest? (3) Is your chest tight? (0) - My chest does not feel tight at all How breathless do you become when walking up a hill or steps? (5) - When I walk up a hill or one flight of stairs I am very breathless How limited are you doing activities at home? (5) - I am very limited doing activities at home How confident are you leaving home with your lung condition? (5) - I am not at all confident leaving my home because of my lung condition How soundly do you sleep? (0) - I sleep soundly How much energy do you have? (4) Total MMRC Score (range: 0 - 4) 4 Total CAT Score (range: 0 - 40) 23 Flu Vaccine Questionnaire Question 02/19/2024 12:53 PM EDT - Filed by Sarina Valiente LPN Get your flu shot at your upcoming appointment. Please select one of the options below. I don't want the flu shot Copd Rescue Question 02/19/2024 12:56 PM EDT - Filed by Sarina Valiente LPN Have you used an antibiotic (e.g., azithromycin, doxycycline, augmentin) in the last 12 months because of your breathing or lung problem? No Have you added or increased the dose of a steroid (e.g., prednisone, solumedrol) in the last 12 months because of your breathing or lung problem? Yes, once Did you go to the ED, or were you hospitalized in the last 12 months because of your breathing or lung problem? Yes Objective Filed Vitals: 02/19/24 1258 BP: 120/70 Pulse: 50 Resp: 16 Temp: 36.3 C (97.4 F) TempSrc: Tympanic SpO2: 95% Weight: 61.7 kg (136 lb) Height: 1.651 m (5' 5") Exam: Const: No signs of acute distress present. Head/Face: Normal on inspection. Eyes: Conjunctivae clear. Pupils equal round and reactive to light. ENMT: Oropharynx: No erythema, exudate or masses. Posterior pharynx is normal. Neck: Supple and symmetric. Resp: Respiratory examination as outlined above CV: Rate is regular. Rhythm is regular. No heart murmur appreciated. Extremities: No edema of the lower limbs bilaterally. Skin: Skin is warm and dry. Neuro: Coordination normal. No involuntary movement. Psych: Patient's attitude is cooperative. Mood is normal. Affect is normal. Tests reviewed with the patient: PET CT SKULL BASE TO MID-THIGH FDG Result Date: 01/22/2024 IMPRESSION Enlarged, hypermetabolic left upper lobe nodule measuring up to 2.3 cm is concerning forprimary lung malignancy. No hypermetabolic hilar/mediastinal lymphadenopathy identified. I have personally reviewed this examination and agree with the resident/fellow physician's interpretation. Available Radiologic data was reviewed by me in PACS. The images were shown to the patient and findings were discussed with the patient. HOME MEDICATIONS: Furosemide 20 MG Oral Tablet (Lasix) Warfarin Sodium 2.5 MG Oral Tablet (Coumadin) Sotalol HCl 80 MG Oral Tablet (Betapace) Spironolactone 25 MG Oral Tablet (Aldactone) Breztri Aerosphere 160-9-4.8 MCG/ACT Inhalation Aerosol (Tvwtped-Aqwvyidjsaj-Rxsvorpuvw) Isosorbide Mononitrate ER 30 MG Oral Tablet Extended Release 24 Hour (Imdur) Nitroglycerin 0.4 MG Sublingual Tablet Sublingual (Nitrostat) Atorvastatin Calcium 40 MG Oral Tablet (Lipitor) Azelastine HCl 0.1 % Nasal Solution (Astelin) ProAir HFA 108 (90 Base) MCG/ACT Inhalation Aerosol Solution Aspirin EC 81 MG Oral Tablet Delayed Release ROS: No reported history of Hemoptysis, Hematemesis, Melena No reported history of Dysuria, Hematuria, Flank Pain No reported history of chronic headache, seizures No reported history of Fall or trauma . No reported history of recent change in weight or appetite. Past Medical History: Diagnosis Date Angioedema 07/16/2012 Atrial fibrillation ([facility]) 05/20/2008 converted with IV diltiazem CAD (coronary artery disease) COPD (chronic obstructive pulmonary disease) ([facility]) COPD, moderate ([facility]) 05/08/2013 emphysema Dyslipidemia, goal LDL below 100 09/10/2010 Elevated TSH 07/31/2018 Emphysema 05/08/2013 HTN, goal below 140/90 Kidney disease, chronic, stage III (GFR 30-59 ml/min) ([facility]) 07/29/2013 Per CKD protocol #1 Lung nodule Ovarian cyst 10/09/2008 Paroxysmal atrial fibrillation ([facility]) 02/04/2014 Prediabetes 07/31/2018 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 10/25/2018 Pulmonary arterial hypertension (HCC) Smoker unmotivated to quit Tobacco use disorder Ureteral cancer, 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 DEFIB/CARDIOVERSION 10/18/2018 for rapid afib [facility]. HYSTEROSCOPY W/BIOPSY AND/OR POLYPECTOMY W/WO D&C 10/16/2008 endo polyp, Roberto LIGATE/CUT OVIDUCT(S) REMOVAL OF APPENDIX age 15 Social History Socioeconomic History Marital status: Tobacco Use Smoking status: Former Average packs/day: [...] Currently Partners: Male Comment: Other Topics Concern Exercise No Comment: not in winter Self-Exams No Social History Narrative Likes time w/2 local grandkids and others in [place]. 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 Entered [...] for ages 18 years and over): No Food Insecurity: No Food Insecurity (02/03/2023) Food Insecurity Do you need food for this week? (Adult - for ages 18 years and over): No Transportation Needs: No Transportation Needs (02/03/2023) Transportation Needs Do you have trouble getting a ride to medical visits or work? (Adult - for ages 18 years and over):Never True Social Connections Housing Stability: Low Risk (02/03/2023) Housing Stability Do you currently live in a correction or have no steady place to sleep at night? (Adult - for ages 18 years and over): No Do you think you are at risk of becoming homeless? (Adult - for ages 18 years and over): No Family History Problem Relation Name Age of Onset Gastro-intestinal disorder Mother gastric hemorrhage Diabetes Father diet controlled Cancer Father colon age 79 Breast Cancer Sister breast age 64, mets lung CA Heart Disorder Brother age 76 Diabetes Brother Review of patient's allergies indicates: Allergen Reactions Diovan [Valsartan] Edema face/lips/tongue Dogs [Dog Dander] Other (Please comment) Congestion, SOB Marlo Inhibitors Cough Influenza Vac Split Quad Other (Please comment) Sinus pressure, drainage after flu shot on 2 occasions Levofloxacin Itching; hives on trunk and lower extremities Nickel Rash documented in this encounter Nursing Notes * Sarina Valiente LPN - 02/19/2024 1:00 PM EDT Chief Complaint Patient presents with Follow Up Return pulm. Feels like o2 not working for her. Nose feels like burning sensation. Nose keeps running and sneezing. Interm History/Respiratory Symptoms Cough: yes-white/clear phlegm. Hemoptysis: no Sinus Symptoms: yes-drainage. Hospitalizations: yes- ED Trips: no Triggers: perfume, dust, mota Nocturnal: slightly elevated at night CPAP/BiPAP/O2: 02 3L at night. DME Supplier: Flu Vaccine: unknown Pneumovax: 2009 Prevnar: none COVID 19: x4. MMRC Dyspnea Scale = 4 (I am too breathless to leave the house or I am breathless when dressing) Patient-Entered [facility] 2019 Msp: Part I And Employment Question 02/19/2024 12:34 PM EDT - Filed by Patient Are you currently employed? No, Retired Date of usp: Do you have a spouse who is currently employed? No, Not (single, , ) Medicare requires that we periodically ask the following questions. Are you receiving benefits under the Black Lung Benefits Act (BL)? No Was the illness/injury due to a work-related accident/condition? No Are you receiving treatment for an injury or illness covered under no-fault (and/or medical-paymentcoverage) including premises or automobile? No Are you receiving treatment for an injury, or illness, for which another republican may be liable? No Are you entitled to Medicare based on: Age? Yes End-stage renal disease (ESRD)? No Patient-Entered Msp: Pff-Nwuciruxdr-Seig Primary Branch Calculation (range: 0 - 5) 1 Do you have group health plan (GHP) coverage based on your own current employment or the employmentof your spouse? No Travel Screening Question 02/19/2024 12:34 PM EDT - Filed by Patient Do you have any of the following new or worsening symptoms? None of these Have you recently been in contact with someone who was sick? No / Unsure Myc Visit Accident Related Question Question 02/19/2024 12:34 PM EDT - Filed by Patient Is this visit related to an accident? (i.e work, motor vehicle) No Mmrc Cat Question 02/19/2024 12:53 PM EDT - Filed by Sarina Valiente LPN When do you become breathless? (4) I am too breathless to leave the house or I am breathless when dressing How frequently do you cough? (1) Do you have phlegm in your chest? (3) Is your chest tight? (0) - My chest does not feel tight at all How breathless do you become when walking up a hill or steps? (5) - When I walk up a hill or one flight of stairs I am very breathless How limited are you doing activities at home? (5) - I am very limited doing activities at home How confident are you leaving home with your lung condition? (5) - I am not at all confident leaving my home because of my lung condition How soundly do you sleep? (0) - I sleep soundly How much energy do you have? (4) Total MMRC Score (range: 0 - 4) 4 Total CAT Score (range: 0 - 40) 23 Flu Vaccine Questionnaire Question 02/19/2024 12:53 PM EDT - Filed by Sarina Valiente LPN Get your flu shot at your upcoming appointment. Please select one of the options below. I don't want the flu shot Copd Rescue Question 02/19/2024 12:56 PM EDT - Filed by Sarina Valiente LPN Have you used an antibiotic (e.g., azithromycin, doxycycline, augmentin) in the last 12 months because of your breathing or lung problem? No Have you added or increased the dose of a steroid (e.g., prednisone, solumedrol) in the last 12 months because of your breathing or lung problem? Yes, once Did you go to the ED, or were you hospitalized in the last 12 months because of your breathing or lung problem? Yes documented in this encounter Plan of Treatment Upcoming Encounters Date Type Department Care Team (Late st Contact Info) Description 02/20/2024 1:00 PM EDT [facility]ostic [facility] [address] [address] [place], [address] [address] 02/20/2024 5:10 PM EDT Anticoagulation Pharmacy, [facility] [place] [address] [address] Pharmacist1, [facility] [address] [place] [address] 02/21/2024 2:40 PM EDT Office [facility] [address] [address] Khoa Hui MD [address] [place] [address] 04/26/2024 10:30 AM EST Office Visit Cardiology, [facility] [address] [facility] [address] [place] [address] Kely Pepper PA-C [address] [facility] [address] [place] [address] 05/17/2024 12:30 PM EST Imaging Radiology [facility] [facility] [address] [facility] [address] [place] [address] 05/20/2024 12:40 PM EST Office Visit Pulmonary Medicine, [facility] [address] [facility] [address] [place] [address] Segundo Clarke MD [address] [facility] [address] 08/30/2024 12:20 PM EDT Office Visit Family Practice [facility] [address] [facility] [address] [place] [address] Khoa Hui MD [address] [place] [address] Scheduled Orders Name Type Priority Associated Diagnoses Orde r Schedule PULMONARY STRESS TESTING Procedures Routine Chronic respiratory failure with hypoxia (HCC) Expected: 02/20/2024, Expires: 03/20/2025 CT CHEST WO CONTRAST Medical Imaging Routine Chronic respiratory failure with hypoxia (HCC) Expected: 05/20/2024, Expires: 03/20/2025 Health Maintenance Due Date Last Done Comments Alpha-1 Antitrypsin 1961 Pneumococcal Vaccine: 65+ Years (2 of 2 - PCV) 05/13/2010 05/13/2009 Adult Wellness Visit 03/31/2018 03/31/2017 DXA Scan 09/18/2018 09/19/2011, 09/19/2011 Depression Screening 10/26/2019 10/25/2018 *ADVANCE DIRECTIVE NOT ON FILE 07/20/2021 DTap/Tdap Vaccines (2 - Td or Tdap) 09/13/2021 09/14/2011 HbA1c 07/25/2023 07/25/2022, 09/0 09/2019, 09/27/2018 COVID-19 Vaccine (5 - season) 2024 01/26/2022, 01/26/2022, 03/08/2021, Additional history [...] Advance Directives occurred with: Patient Care Teams Nursing Staffing Coordinator Relationship Specialty Start Date End Date Khoa Hui MD [address] [address] PCP - General Family Medicine 05/19/14 documented as of this encounter
--- OUTSIDE RECORDS SUMMARY | 2024-03-02 06:28 | External Medical Summary | Summary of Care ---
Author Name Unknown Organization [facility] Address [address] [place] [address] Phone [phone] Care Team Providers Care Freelance Art Director Name Role Phone Khoa Hui MD Primary Care Provider + Encounter Details Date Type Department Care Team (Late st Contact Info) Description 02/20/2024 Orders Only PATIENT PORTAL DO NOT DELETE THIS DEPT USED BY [facility] [address] Allergies Active Allergy Reactions Criticality Noted Date [...] Nasal Solution (Astelin)Indications: Rhinitis, nonallergic Administer 1 [place] into nostril in the morning and 1 [place] before bedtime. 90 mL 3 04/05/2023 Active Atorvastatin Calcium 40 MG Oral Tablet (Lipitor)Indications: Paroxysmal atrial fibrillation (HCC),Coronary artery disease involving [place] coronary artery of [place] heart without angina pectoris TAKE 1 TABLET IN THE MORNING 90 Tablet 3 05/25/2023 Active Breztri Aerosphere 160-9-4.8 MCG/ACT Inhalation Aerosol (Budeson-Glycopyrrol- Formoterol)Indication s:COPD, group D, by GOLD 2017 classification ([facility]) Inhale 2 Puffs by mouth in the morning and 2 Puffs before bedtime. 32.1 g 3 07/05/2023 Active Isosorbide Mononitrate ER 30 MG Oral Tablet Extended Release 24 Hour (Imdur)Indications:CA D in [place] artery Take 1 Tablet by mouth in the morning. 90 Tablet 3 07/05/2023 Active Nitroglycerin 0.4 MG Sublingual Tablet Sublingual (Nitrostat)Indication s:CAD in [place] artery Place 1 Tablet under the [...] GOLD Classification Bladder mass 01/05/2022 U[address]teral lesion, 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 [place] artery 03/20/2015 Venous insufficiency 03/12/2014 Overview: [...] mRNA, LNP-s, No Pre serve, 2-Dose Series (VirtualScopics) 01/26/2022,03/08/2021,08/20/2020,07/30 Pneumococcal Polysaccharide PPV23 (Pneumovax) 05/13/2009 Seasonal [...] on file documented as of this encounter Plan of Treatment Upcoming Encounters Date Type Department Care Team (Late st Contact Info) Description 02/20/2024 5:10 PM EDT Anticoagulation Pharmacy, [facility] [address] [place] [address] Pharmacist1, [facility] [address] [facility] [place] [address] 02/21/2024 2:40 PM EDT Office Visit Family Practice [facility] [address] [place] [address] Khoa Hui MD [address] [place] [address] 04/26/2024 10:30 AM EST Office Visit Cardiology, [facility] [address] [place] [address] Kely Pepper PA-C [address] [place] [address] 05/17/2024 12:30 PM EST [facility] [address] [place] [address] 05/20/2024 12:40 PM EST Office Visit Pulmonary Medicine, [facility] [address] [facility] [place] [address] Segundo Clarke MD [address] [facility] [address] 08/30/2024 12:20 PM EDT Office Visit [facility] [address] [place] [address] Khoa Hui MD [address] [place] [address] Health Maintenance Due Date Last Done Comments Alpha-1 Antitrypsin 1963 Pneumococcal Vaccine: 65+ Years (2 of 2 - PCV) 05/13/2010 05/13/2009 Adult Wellness Visit 03/31/2018 03/31/2017 DXA Scan 09/18/2018 09/19/2011, 09/19/2011 Depression Screening 10/26/2019 10/25/2018 *ADVANCE DIRECTIVE NOT ON FILE 07/20/2021 DTap/Tdap Vaccines (2 - Td or Tdap) 09/13/2021 09/14/2011 HbA1c 07/25/2023 07/25/2022, 09/09/2019, 09/27/2018 COVID-19 Vaccine ( - season) 2024 01/26/2022, 01/26/2022, 03/08/2021, Additional [...] Advance Directives occurred with: Patient Care Teams Freelance Art Director Relationship Specialty Start Date End Date Khoa Hui MD [address] [place] [address] PCP - General Family Medicine 05/19/14 documented as of this encounter
--- OUTSIDE RECORDS SUMMARY | 2024-03-02 06:29 | External Medical Summary | Summary of Care ---
Author Name Unknown Organization [facility] Address [address] [address] , [place] Care Team Providers Care Principal Technical Architect Name Role Phone Khoa Hui MD Primary Care Provider + Reason for Visit * Reason Onset Date Comments Bruising 02/15/2024 Encounter Details Date Type Department Care Team (Late st Contact Info) Description 02/15/2024 Telephone Pharmacy, [facility] [place] [address] [place] [address] Pharmacist2, [facility] [address] [facility] [address] Bruising Allergies Active Allergy Reactions Criticality Noted Date Comments Marlo Inhibitors Cough 02/23/2009 Valsartan Edema face/lips/tongue High 05/17/2012 Dog Dander Other (Please comment) High 06/11/2015 Congestion, SOB Influenza Vac Split Quad Other (Please comment) 03/15/2012 Sinus pressure, drainage after flu shot on 2 occasions Levofloxacin 10/07/2013 Itching; hives on trunk and lower extremities Nickel Rash 05/20/2008 documented as of this encounter (statuses as of 02/15/2024) Medications Medication Sig Dispensed Refills Start Date [...] Nasal Solution (Astelin)Indications: Rhinitis, nonallergic Administer 1 [place] into nostril in the morning and 1 [place] before bedtime. 90 mL 3 04/05/2023 Active Atorvastatin Calcium 40 MG Oral Tablet (Lipitor)Indications: Paroxysmal atrial fibrillation (HCC),Coronary artery disease involving [place] coronary artery of [place] heart without angina pectoris TAKE 1 TABLET [...] Extended Release 24 Hour (Imdur)Indications:CA D in [place] artery Take 1 Tablet by mouth in the morning. 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 10/25/2018 Prediabetes 07/31/2018 Elevated TSH 07/31/2018 CAD in [place] artery 03/20/2015 Venous insufficiency 03/12/2014 Overview: 03/18 [...] as of this encounter (statuses as of 02/15/2024) Resolved Problems Problem Noted Date Diagnosed Date [...] as of this encounter (statuses as of 02/15/2024) Immunizations Name Administration Dates Next Due COVID-19 mRNA, LNP-s, No Pre serve, 2-Dose Series (Sistemic) 01/26/2022,03/08/2021,08/20/2020,07/30 Pneumococcal Polysaccharide PPV23 (Pneumovax) 05/13/2009 Seasonal [...] encounter Miscellaneous Notes * Telephone Encounter - Howard Sheth RPh - 02/15/2024 11:30 AM EDT Patient Phone Numbers [facility] PH: [phone] FAX: [phone] [facility] [phone] (nurse in [place]) Caller's name: Lila Preferred call back number(OFFICE NUMBER FOR ): [phone] Reason for call: Call from [facility], states pt having bruising , large bruise on hand, 2 on arm and 4 on right arm, pt denies falls/injury, was on abx and prednisone in hospital. At [facility]. Spoke to Lila and discussed her bruising. She does not remember bumping either hand but has bruising. She has very little muscle mass on her hands and arms which will allow any bruising she gets to appear quickly and spread easily. She has quit smoking which will allow her INR to rise some. Her INRwas 1.9 on 02/12 which was low. She has a repeat INR in 5 days. I will assess then. Howard Anderson RPh, [facility] Clinical Pharmacist Medication Therapy Management Clinic 02/15/2024, 11:39 AM * Telephone Encounter - Lewis Clemente CPhT - 02/15/2024 10:45 AM EDT Caller's name: Lila Preferred call back number(OFFICE NUMBER FOR ): [phone] Reason for call: Call from [facility], states pt having bruising , large bruise on hand, 2 on arm and 4 on right arm, pt denies falls/injury, was on abx and prednisone in hospital. At [facility]. Thank you, Lewis Clemente CPhT [facility] [employer] 02/15/2024,10:45 AM documented in this encounter Plan of Treatment Upcoming Encounters Date Type Department Care Team (Late st Contact Info) Description 02/19/2024 12:40 PM EDT Office Visit Pulmonary Medicine, [facility] [address] [place] [address] Segundo Clarke MD [address] [facility] [address] 02/20/2024 5:10 PM EDT Anticoagulation Pharmacy, [facility] [address] [facility] [place] [address] Pharmacist1, [facility] 200 [facility] [place] [address] 02/21/2024 2:40 PM EDT Office Visit Family [facility] [address] [place] [address] Khoa Hui MD [address] [address] 08/30/2024 12:20 PM EDT Office Visit [facility] [address] [place] [address] Khoa Hui MD [address] [address] Health Maintenance Due Date Last Done Comments [...] Advance Directives occurred with: Patient Care Teams Principal Technical Architect Relationship Specialty Start Date End Date Khoa Hui MD [address] [place] [address] PCP - General Family Medicine 05/19/14 documented as of this encounter
--- OUTSIDE RECORDS SUMMARY | 2024-03-02 06:29 | External Medical Summary | Summary of Care ---
Author Name Unknown Organization [facility] Address [address] [place] [address] Phone [phone] Care Team Providers Care Siebel Consultant Name Role Phone Khoa Hui MD Primary Care Provider + Reason for Visit * Reason Comments Dosage Adjustment Via Phone (anticoag Cl inic) Hospital Follow-Up Encounter Details Date Type Department Care Team (Latest Contact Info) Description 02/08/2024 5:10 PM EDT Anticoagulation Pharmacy, [facility] 200 [facility] [place] [address] Pharmacist1, [facility] [place] [address] Paroxysmal atrial fibrillation (HCC)* Allergies Active Allergy [...] as of this encounter (statuses as of 02/08/2024) Medications Medication Sig Dispensed Refills Start Date [...] Nasal Solution (Astelin)Indications: Rhinitis, nonallergic Administer 1 [place] into nostril in the morning and 1 [place] before bedtime. 90 mL 3 04/05/2023 Active Atorvastatin Calcium 40 MG Oral Tablet (Lipitor)Indications: Paroxysmal atrial fibrillation (HCC),Coronary artery disease involving [place] coronary artery of [place] heart without angina pectoris TAKE 1 TABLET IN THE MORNING 90 Tablet 3 05/25/2023 Active Breztri Aerosphere 160-9-4.8 MCG/ACT Inhalation Aerosol (Budeson-Glycopyrrol- Formoterol)Indication s:COPD, group D, by GOLD 2017 classification ([facility]) Inhale 2 Puffs by mouth in [...] as of this encounter (statuses as of 02/08/2024) Active Problems Problem Noted Date Diagnosed Date [...] DVT LLE Paroxysmal atrial fibrillation 02/04/2014 Overview: 01/16-[facility] hosp w/rapid response. Change to toprol. [...] as of this encounter (statuses as of 02/08/2024) Resolved Problems Problem Noted Date Diagnosed Date [...] as of this encounter (statuses as of 02/08/2024) Immunizations Name Administration Dates Next Due COVID-19 [...] Progress Notes * Howard Sheth RPh - 02/08/2024 10:08 AM EDT Lila is still admitted to [facility] w/no d/c date set. I will check for d/c in 4 days. Howard Anderson RPh, [facility] Clinical Pharmacist Medication Therapy Management Clinic 02/08/2024, 10:08 AM documented in this encounter Plan of Treatment Upcoming Encounters Date Type Department Care Team (Late st Contact Info) Description 02/12/2024 5:10 PM EDT Anticoagulation Pharmacy, [facility] [address] [place] [address] Pharmacist1, [facility] [address] [place] [address] 08/30/2024 12:20 PM EDT Office Visit Family Practice [facility] [address] [place] [address] Khoa Hui MD [address] [place] [address] Health Maintenance Due Date Last Done Comments Alpha-1 Antitrypsin 1963 Pneumococcal Vaccine: 65+ Years (2 of 2 - PCV) 05/13/2010 05/13/2009 Adult Wellness Visit 03/31/2018 03/31/2017 DXA Scan 09/18/2018 09/19/2011, 09/19/2011 Depression Screening 10/26/2019 10/25/2018 *ADVANCE DIRECTIVE NOT ON FILE 07/20/2021 DTap/Tdap Vaccines (2 - Td or Tdap) 09/13/2021 09/14/2011 HbA1c 07/25/2023 07/25/2022, 0909/2019, 09/27/2018 COVID-19 Vaccine ( - season) 2024 [...] Advance Directives occurred with: Patient Care Teams Siebel Consultant Relationship Specialty Start Date End Date Khoa Hui MD [address] [place] [address] PCP - General Family Medicine 05/19/14 documented as of this encounter
--- OUTSIDE RECORDS SUMMARY | 2024-03-02 06:29 | External Medical Summary | Summary of Care ---
Author Name Unknown Organization [facility] Address [address] [place] [address] Phone [phone] Care Team Providers Care Photo Tube Assembler Name Role Phone Khoa Hui MD Primary Care Provider + Reason for Visit * Reason Comments Dosage Adjustment Via Phone (anticoag Cl inic) Encounter Details Date Type Department Care Team (Latest Contact Info) Description 02/13/2024 5:10 PM EDT Anticoagulation Pharmacy, [facility] 200 [facility] [place] [address] Pharmacist1, [facility] 200 [facility] [place] [address] Anticoagulation management encounter*; Paroxysmal atrial fibrillation (HCC) Allergies Active Allergy [...] as of this encounter (statuses as of 02/13/2024) Medications Medication Sig Dispensed Refills Start Date [...] Nasal Solution (Astelin)Indications: Rhinitis, nonallergic Administer 1 [place] into nostril in the morning and 1 [place] before bedtime. 90 mL 3 04/05/2023 Active Atorvastatin Calcium 40 MG Oral Tablet (Lipitor)Indications: Paroxysmal atrial fibrillation (HCC),Coronary artery disease involving [place] coronary artery of [place] heart without angina pectoris TAKE 1 TABLET IN THE MORNING 90 Tablet 3 05/25/2023 Active Breztri Aerosphere 160-9-4.8 MCG/ACT Inhalation Aerosol (Budeson-Glycopyrrol- Formoterol)Indication s:COPD, group D, by GOLD 2017 classification ([facility]) Inhale 2 Puffs by mouth in the morning and 2 Puffs before bedtime. 32.1 g 3 07/05/2023 Active Isosorbide Mononitrate ER 30 MG Oral Tablet Extended Release 24 Hour (Imdur)Indications:CA D in [place] artery Take 1 Tablet by mouth in the morning. 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 Change to toprol. [...] as of this encounter (statuses as of 02/13/2024) Resolved Problems Problem Noted Date Diagnosed Date [...] as of this encounter (statuses as of 02/13/2024) Immunizations Name Administration Dates Next Due COVID-19 [...] as of this encounter Progress Notes * Rashida Olguin CPhT - 02/13/2024 5:10 PM EDT Pt will be seen by [facility] ([phone]) today, 02/13/2024. Pt states she willhave the nurse call us with their information upon arrival to her home. Rashida Olguin CPhT Needle Punch Machine Operator Helper II [facility] [address] [place] [address] Dr. Leroy [address] [address] [id number] 02/13/2024 9:36 AM * Liliana Boudreaux [facility] - 02/13/2024 1:20 PM EDT Images from the original note were not included. Patient is getting care from [facility] PH: [phone] FAX: [phone] -- Melissa [phone] (nurse in home) Faxed info and orders to [facility] Medication Therapy Disease Management - Anticoagulation Patient: Lila Aquilino | : 1945 Subjective Contacts Contact Date/Time Type Contact Phone/Fax 02/13/2024 01:25 PM EDT Phone (Outgoing) Lila Rolle (Self) [phone] (H) Spoke to Patient Patient-Reported Symptoms: Patient Findings Positives: Change in diet/appetite (Patient states that she has been eating Broccoli salad) Negatives: Signs/symptoms of thrombosis, Signs/symptoms of bleeding, Change in health, Change in alcohol use, Change in activity, Upcoming invasive procedure, Missed doses, Extra doses, Change in medications, Bruising Objective Current Warfarin Dose As of 02/13/2024 Warfarin maintenance plan: 1.25 mg (2.5 mg x 0.5) every Sat; 2.5 mg (2.5 mg x 1) all other days INR Result As of 02/13/2024 INR goal: 2.0-3.0 INR used for dosin.9 (02/13/2024) Assessment & Plan Warfarin Plan As of 02/13/2024 Full warfarin instructions: 02/12: 3.75 mg; Otherwise 1.25 mg every Sat; 2.5 mg all other days Next INR check: 02/20/2024 Repeat PT/INR in 1 week(s) Weekly dose: not changed Additional Dosing Information: Patient states that HH is coming back on but was unsure of when they would be back after that. Plan to have INR early next week with HH. Description Given patients aversion to self injections and lower predicted risk Per Cardiology (see 01/13/22 note) okay with NO lovenox bridge. I spent a total of 10-19 minutes (exact time 10 mins) on the date of service in preparation, delivery, and documentation of the care provided to Lila Rolle excluding any time spent in the performanceof separately billed services or time spent by another provider/QHP. Liliana Boudreaux [facility] Clinical Pharmacist 02/13/2024, 1:20 PM * Tamika Ellison PHARM Tech - 02/13/2024 10:59 AM EDT Melissa called in patient's INR result. INR=1.9 Tamika Ellison Needle Punch Machine Operator Helper I [facility] 02/13/2024,11:00 AM * Howard Sheth RPh - 02/13/2024 10:44 AM EDT Patient Phone Numbers [facility] PH: [phone] FAX: [phone] Melissa [phone] (nurse in home) documented in this encounter Plan of Treatment Upcoming Encounters Date Type Department Care Team (Late st Contact Info) Description 02/19/2024 12:40 PM EDT Office Visit Pulmonary Medicine, [facility] [address] [place] [address] Segundo Clarke MD [address] [place] [place] [address] 02/21/2024 2:40 PM EDT Office Visit Family Practice [facility] [address] [place] [address] Khoa Hui MD [address] [place] [address] 08/30/2024 12:20 PM EDT Office Visit [facility] [address] [place] [address] Khoa Hui MD [address] [place] [address] Health Maintenance Due Date Last Done Comments Alpha-1 Antitrypsin 1963 Pneumococcal Vaccine: 65+ Years (2 of 2 - PCV) 05/13/2010 05/13/2009 Adult Wellness Visit 03/31/2018 03/31/2017 DXA Scan 09/18/2018 09/19/2011, 09/19/2011 Depression Screening 10/26/2019 10/25/2018 *ADVANCE DIRECTIVE NOT ON FILE 07/20/2021 DTap/Tdap Vaccines (2 - Td or Tdap) 09/13/2021 09/14/2011 HbA1c 07/25/2023 07/25/2022, 09/2019, 09/27/2018 COVID-19 Vaccine (5 - 2022- season) 2024 01/26/2022, 01/26/2022, 03/08/2021, Additional history [...] Date/Time Associated Diagnosis Comments OUTSIDE LAB-PT/INR Routine 02/13/2024 documented in this encounter Results * OUTSIDE LAB-PT/INR (02/13/2024) INR-OUTSIDE LAB 1.9 02/13/2024 History Per Patient LABORATORY documented in this encounter Visit Diagnoses Diagnosis Anticoagulation management encounter- Primary Encounter for therapeutic drug monitoring Paroxysmal atrial fibrillation (HCC) Atrial fibrillation documented [...] Advance Directives occurred with: Patient Care Teams Photo Tube Assembler Relationship Specialty Start Date End Date Khoa Hui MD [address] [place] [address] PCP - General Family Medicine 05/19/14 documented as of this encounter"
--- OUTSIDE RECORDS SUMMARY | 2024-03-02 06:29 | External Medical Summary | Summary of Care ---
Author Name Unknown Organization [facility] Address [address] [place] [facility] [place] [address] Phone [phone] Care Team Providers Care Textile Science Technician Name Role Phone Khoa Hui MD Primary Care Provider + Encounter Details Date Type Department Care Team (Late st Contact Info) Description 02/13/2024 Telephone Centralized Clinical Pharmacy Services, [facility]clend[facility] [address] [place] [address] [place] [address] Pharmacist1, [facility] [address] [facility] [address] Allergies Active Allergy Reactions Criticality Noted Date [...] Nasal Solution (Astelin)Indications: Rhinitis, nonallergic Administer 1 [place] into nostril in the morning and 1 [place] before bedtime. 90 mL 3 04/05/2023 Active Atorvastatin Calcium 40 MG Oral Tablet (Lipitor)Indications: Paroxysmal atrial fibrillation (HCC),Coronary artery disease involving sam[place] coronary artery of samish heart without angina pectoris TAKE 1 TABLET [...] Extended Release 24 Hour (Imdur)Indications:CA D in sam[place] artery Take 1 Tablet by mouth in the morning. 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 Change to [...] mRNA, LNP-s, No Pre serve, 2-Dose Series ([employer]) 01/26/2022,03/08/2021,08/20/2020,07/30 Pneumococcal Polysaccharide PPV23 (Pneumovax) 05/13/2009 [...] Telephone Encounter - Howard Sheth RPh - 02/13/2024 10:41 AM EDT Called Melissa and gave her a verbal order for an INR. See Coag note from today for results and orders Howard Anderson RPh, [facility] Clinical Pharmacist Medication Therapy Management [facility] 02/13/2024, 10:42 AM * Telephone Encounter - Ami Ozuna PHARM Tech - 02/13/2024 10:04 AM EDT Caller's name: Rhina Preferred call back number(OFFICE NUMBER FOR ): [phone] Reason for call: Nurse hRina is calling in asking for a call back from [facility] for a verbal order tohave INR drawn for patient today. Please advise. Thank you, Lorne Ozuna Computer Scientist Centralized Clinical Pharmacy Services ([facility]) 02/13/2024, 10:04 AM documented in this encounter Plan of Treatment Upcoming Encounters Date Type Department Care Team (Latest Contact Info) Description 02/13/2024 5:10 PM EDT Anticoagulation Pharmacy, [facility] [address] [place] [address] Pharmacist1, [facility] [address] [facility] [place] [address] Paroxysmal atrial fibrillation (HCC)* 02/15/2024 9:40 AM EDT Office Visit Pulmonary Medicine, [facility] [place] [address] Segundo Clarke MD [address] [place] [address] 02/15/2024 10:40 AM EDT Office Visit [facility] 132 [facility] [place] [address] Khoa Hui MD [address] [facility] [place] [address] 08/30/2024 12:20 PM EDT Office Visit [facility] 132 [facility] [place] [address] Khoa Hui MD [address] [facility] [place] [address] Health Maintenance Due Date Last Done Comments [...] Advance Directives occurred with: Patient Care Teams Textile Science Technician Relationship Specialty Start Date End Date Khoa Hui MD [address] [place] [address] PCP - General Family Medicine 05/19/14 documented as of this encounter
--- OUTSIDE RECORDS SUMMARY | 2024-03-02 06:29 | External Medical Summary | Summary of Care ---
Author Name Unknown Organization [facility] Address [address] [place] [address] Phone [phone] Care Team Providers Care Credit Administration Officer Name Role Phone Khoa Hui MD Primary Care Provider + Reason for Visit * Reason Comments Hospital Follow-Up Dosage Adjustment Via Phone (anticoag Cl inic) Encounter Details Date Type Department Care Team (Latest Contact Info) Description 02/12/2024 5:10 PM EDT Anticoagulation Pharmacy, [facility] [address] [facility] [place] [address] Pharmacist1, [facility] [address] [facility] [address] Paroxysmal atrial fibrillation (HCC)* Allergies Active Allergy [...] as of this encounter (statuses as of 02/12/2024) Medications Medication Sig Dispensed Refills Start Date End Date Status Aspirin EC 81 MG Oral Tablet Delayed Release Take 1 Tablet by mouth in the morning. 01/21/2022 Active ProAir HFA 108 (90 Base) MCG/ACT Inhalation Aerosol SolutionIndications:C OPD, group D, by GOLD 2017 classification ([facility]) Inhale 2 Puffs by mouth every 4 hours as needed for Cough, Shortness of Breath or Wheezing. 54 g 3 01/24/2023 Active Azelastine HCl 0.1 % Nasal Solution (Astelin)Indications: Rhinitis, nonallergic Administer 1 [place] into nostril in the morning and 1 [place] before bedtime. 90 mL 3 04/05/2023 Active Atorvastatin Calcium 40 MG Oral Tablet (Lipitor)Indications: Paroxysmal atrial fibrillation (HCC),Coronary artery disease involving [place] coronary artery of [place] heart without angina pectoris TAKE 1 TABLET IN THE MORNING 90 Tablet 3 05/25/2023 Active Breztri Aerosphere 160-9-4.8 MCG/ACT Inhalation Aerosol (Budeson-Glycopyrrol- Formoterol)Indication s:COPD, group D, by GOLD 2017 classification ([facility]) Inhale 2 Puffs by mouth in the morning and 2 Puffs before bedtime. 32.1 g 3 07/05/2023 Active Isosorbide Mononitrate ER 30 MG Oral Tablet Extended Release 24 Hour (Imdur)Indications:CA D in [place] artery Take 1 Tablet by mouth in the morning. 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 Change to [...] as of this encounter (statuses as of 02/12/2024) Resolved Problems Problem Noted Date Diagnosed Date [...] as of this encounter (statuses as of 02/12/2024) Immunizations Name Administration Dates Next Due COVID-19 [...] Progress Notes * Howard Sheth RPh - 02/12/2024 8:17 AM EDT Images from the original note were not included. Patient Phone Numbers Patient admitted to [facility] on 02/05 for acute chronic respiratory failure due to heart failure and cor pulmonale Left lower extremity cellulitis. INR on admission was 3.3. Coumadin doses starting 02/05 were: Hold, 2mg, 2mg. Patient was discharged 02/08 following INR of 2.6 with instructions to take Coumadin 1.25 mgevery Sat; 2.5 mg all other days (dose INSURANCE CLAIM REPRESENTATIVE). INR when HH coming or early next week.. Spoke to Lila at 8:31 AM and she does not know who the home health agency is that will be coming toher house. I will follow-up at the end of the day if she does not call the clinic earlier, Howard Mckeon. Kevin Anderson, CACP, CDE Clinical Pharmacist Medication Therapy Management Clinic 02/12/2024, 8:17 AM documented in this encounter Plan of Treatment Upcoming Encounters Date Type Department Care Team (Late st Contact Info) Description 02/13/2024 5:10 PM EDT Anticoagulation Pharmacy, [facility] [place] [address] [place] [address] Pharmacist1, [facility] [address] [place] [address] 02/15/2024 9:40 AM EDT Office Visit Pulmonary Medicine, [facility] [place] [address] Segundo Clarke MD [address] [place] [place] [address] 02/15/2024 10:40 AM EDT Office Visit [facility] [address] [place] [address] Khoa Hui MD 132 [facility] [place] [address] 08/30/2024 12:20 PM EDT Office Visit [facility] [address] [place] [address] Khoa Hui MD 132 [facility] [place] [address] Health Maintenance Due Date Last Done Comments Alpha-1 Antitrypsin 1963 Pneumococcal Vaccine: 65+ Years (2 of 2 - PCV) 05/13/2010 05/13/2009 Adult Wellness Visit 03/31/2018 03/31/2017 DXA Scan 09/18/2018 09/19/2011, 09/19/2011 Depression Screening 10/26/2019 10/25/2018 *ADVANCE DIRECTIVE NOT ON FILE 07/20/2021 DTap/Tdap Vaccines (2 - Td or Tdap) 09/13/2021 09/14/2011 HbA1c 07/25/2023 07/25/2022, 0909/2019, 09/27/2018 COVID-19 Vaccine ( - 2022- season) 2024 01/26/2022, 01/26/2022, 03/08/2021, [...] Advance Directives occurred with: Patient Care Teams Credit Administration Officer Relationship Specialty Start Date End Date Khoa Hui MD 132 [facility] [place] [address] PCP - General Family Medicine 05/19/14 documented as of this encounter
--- OUTSIDE RECORDS SUMMARY | 2024-03-02 06:29 | External Medical Summary | Summary of Care ---
Author Name Unknown Organization [facility] Address [address] [place] [address] Phone [phone] Care Team Providers Care Tailings Man Name Role Phone Khoa Hui MD Primary Care Provider + Reason for Visit * Reason Comments Dosage Adjustment Via Phone (anticoag Cl inic) Hospital Follow-Up Encounter Details Date Type Department Care Team (Latest Contact Info) Description 02/06/2024 5:10 PM EDT Anticoagulation Pharmacy, [facility] 200 [facility] [place] [address] Pharmacist1, [facility] [address] [facility] [address] Paroxysmal atrial fibrillation (HCC)* Allergies Active Allergy [...] Nasal Solution (Astelin)Indications: Rhinitis, nonallergic Administer 1 [place] into nostril in the morning and 1 [place] before bedtime. 90 mL 3 04/05/2023 Active Atorvastatin Calcium 40 MG Oral Tablet (Lipitor)Indications: Paroxysmal atrial fibrillation (HCC),Coronary artery disease involving [place] coronary artery of [place] heart without angina pectoris TAKE 1 TABLET IN THE MORNING 90 Tablet 3 05/25/2023 Active Breztri Aerosphere 160-9-4.8 MCG/ACT Inhalation Aerosol (Budeson-Glycopyrrol- Formoterol)Indication s:COPD, group D, by GOLD 2017 classification ([facility]) Inhale 2 Puffs by mouth in the morning and 2 Puffs before bedtime. 32.1 g 3 07/05/2023 Active Isosorbide Mononitrate ER 30 MG Oral Tablet Extended Release 24 Hour (Imdur)Indications:CA D in [place] artery Take 1 Tablet by mouth in the morning. 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 Change to toprol. [...] Progress Notes * Howard Sheth RPh - 02/06/2024 3:28 PM EDT Patient Phone Numbers Patient at [facility] ER. INR and other labs drawn but no results. We will check for admission later today. INR 3.3. Patient admitted to [facility] for SOB/chest pain Howard Anderson RPh, [facility] Clinical Pharmacist Medication Therapy Management Clinic 02/06/2024, 3:29 PM documented in this encounter Plan of Treatment Upcoming Encounters Date Type Department Care Team (Late st Contact Info) Description 02/08/2024 5:10 PM EDT Anticoagulation Pharmacy, [facility] [address] [place] [address] Pharmacist1, [facility] [address] [facility] [place] [address] 08/30/2024 12:20 PM EDT Office Visit Family Practice [facility] [address] [place] [address] Khoa Hui MD [address] [place] [address] Health Maintenance Due Date Last Done Comments Alpha-1 Antitrypsin 1963 Pneumococcal Vaccine: 65+ Years (2 of 2 - PCV) 05/13/2010 05/13/2009 Adult Wellness Visit 03/31/2018 03/31/2017 DXA Scan 09/18/2018 09/19/2011, 09/19/2011 Depression Screening 10/26/2019 10/25/2018 *ADVANCE DIRECTIVE NOT ON FILE 07/20/2021 DTap/Tdap Vaccines (2 - Td or Tdap) 09/13/2021 09/14/2011 HbA1c 07/25/2023 07/25/2022, 09/0 09/2019, 09/27/2018 COVID-19 Vaccine (2022- season) 2024 01/26/2022, 01/26/2022, 03/08/2021, Additional history [...] Advance Directives occurred with: Patient Care Teams Tailings Man Relationship Specialty Start Date End Date Khoa Hui MD [address] [place] [address] PCP - General Family Medicine 05/19/14 documented as of this encounter
--- OUTSIDE RECORDS SUMMARY | 2024-03-02 06:29 | External Medical Summary | Summary of Care ---
Author Name Unknown Organization [facility] Address [address] [place] [address] Phone [phone] Care Team Providers Care Biodiesel Processing Technician Name Role Phone Khao Hui MD Primary Care Provider + Encounter Details Date Type Department Care Team (Late st Contact Info) Description 02/12/2024 Orders Only Family Practice [facility] [address] [facility] [place] [address] Khoa Hui MD [address] [facility] [place] [address] Allergies Active Allergy Reactions Criticality Noted [...] Nasal Solution (Astelin)Indications: Rhinitis, nonallergic Administer 1 [place] into nostril in the morning and 1 [place] before bedtime. 90 mL 3 04/05/2023 Active Atorvastatin Calcium 40 MG Oral Tablet (Lipitor)Indications: Paroxysmal atrial fibrillation (HCC),Coronary artery disease involving [place] coronary artery of [place] heart without angina pectoris TAKE 1 TABLET [...] Extended Release 24 Hour (Imdur)Indications:CA D in [place] artery Take 1 Tablet by mouth in the morning. 90 Tablet 3 07/05/2023 Active Nitroglycerin 0.4 MG Sublingual Tablet Sublingual (Nitrostat)Indication s:CAD in [place] artery Place 1 Tablet under the tongue [...] GOLD Classification Bladder mass 01/05/2022 Ureteral lesion, [place], right 01/05/2022 Chronic diastolic heart failure 07/01/2021 Pulmonary hypertension 07/01/2021 Lung nodule 07/01/2021 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 10/25/2018 Prediabetes 07/31/2018 Elevated TSH 07/31/2018 CAD in [place] artery 03/20/2015 Venous insufficiency 03/12/2014 Overview: 03/18 --no DVT LLE Paroxysmal atrial fibrillation 02/04/2014 Overview: 01/16-[facility] hosp w/rapid response. Change to toprol. [...] Description 02/12/2024 5:10 PM EDT Anticoagulation Pharmacy, [facility] [address] [facility] [place] [address] Pharmacist1, [facility] 200 [facility] [place] [address] Paroxysmal atrial fibrillation (HCC)* 02/15/2024 9:40 AM EDT Office Visit Pulmonary Medicine, [facility] [address] [place] [address] Segundo Clarke MD [address] [facility] [address] 02/15/2024 10:40 AM EDT Office Visit Family Practice [facility] [address] [place] [address] Khoa Hui MD [address] [place] [address] 08/30/2024 12:20 PM EDT Office Visit [facility] Practice [facility] [address] [place] [address] Khoa Hui MD [address] [place] [address] Health Maintenance Due Date Last Done Comments [...] Procedure Name Priority Date/Time Associated Diagnosis Comments XR CHEST 1 VIEW Routine 02/06/2024 documented in this encounter Results * XR CHEST 1 VIEW (02/06/2024) Anatomical Region Laterality Modality Chest Other 02/06/2024 Geo Roque MD RADIOLOGY (RAD GENER AL) documented in this encounter Advance Directives * [...] Advance Directives occurred with: Patient Care Teams Biodiesel Processing Technician Relationship Specialty Start Date End Date Khoa Hui MD [address] [place] [address] PCP - General Family Medicine 05/19/14 documented as of this encounter
[2024-03-02] MEDS: FLUTICASONE FUROATE 200MCG 14 PUFFS/INHALER INH SCH (07:47)
[2024-03-02] MEDS: guaiFENesin 600 MG TABCR PO SCH (07:47)
[2024-03-02] MEDS: UMECLIDINIUM/VILANTEROL 62.5/25MCG 7 PUFFS/INHALER INH SCH (07:47)
[2024-03-02] MEDS: ISOSORBIDE MONO EXTENDED REL 30 MG TABCR PO SCH (07:47)
[2024-03-02] MEDS: SOTALOL HCL 80 MG TAB PO SCH (07:47)
[2024-03-02] MEDS: DOXYCYCLINE HYCLATE 100 MG CAP PO SCH (07:48)
[2024-03-02] MEDS: predniSONE 20 MG TAB PO SCH (07:48)
--- OUTSIDE RECORDS SUMMARY | 2024-03-02 07:48 | External Medical Summary | Summary of Care ---
Author Name Unknown Organization [facility] Address [address] [facility] [place] [address] Phone [phone] Care Team Providers Care Integrated Campaign Manager Name Role Phone Khoa Hui MD Primary Care Provider + Reason for Visit * Reason Onset Date Comments medication change 03/01/2024 Encounter Details Date Type Department Care Team (Late st Contact Info) Description 03/01/2024 Telephone Pharmacy, [address] [place] [phone] Tamera Neumann, [facility] [address] [facility] [place] [address] medication change Allergies Active Allergy Reactions Criticality Noted Date [...] Active Azelastine HCl 0.1 % Nasal Solution (Astelin)Indications :Rhinitis, nonallergic Administer 1 Hugo into nostril in the morning and 1 Hugo before bedtime. 90 mL 3 04/05/2023 Active Isosorbide Mononitrate ER 30 MG Oral Tablet Extended Release 24 Hour (Imdur)Indications:C AD in [place] artery Take 1 Tablet by mouth in the morning. 90 Tablet 3 07/05/2023 Active Nitroglycerin 0.4 MG Sublingual Tablet Sublingual (Nitrostat)Indicatio ns:CAD in [place] artery Place 1 Tablet under the tongue every 5 minutes as needed for Pain, Chest. 25 Tablet 3 07/05/2023 Active Spironolactone 25 MG Oral Tablet (Aldactone)Indicatio ns:HTN, goal below 130/80,Chronic diastolic heart failure (HCC),Localized edema TAKE 1 TABLET IN THE MORNING 90 Tablet 3 09/05/2023 Active Sotalol HCl 80 MG Oral Tablet (Betapace)Indication s:Paroxysmal atrial fibrillation (HCC) TAKE 1 TABLET TWICE A DAY 180 Tablet 1 10/03/2023 Active Warfarin Sodium 2.5 MG Oral Tablet (Coumadin)Indication s:Paroxysmal atrial fibrillation (HCC) TAKE 1 TABLET DAILY DIRECTED BY ANTICOAG CLINIC 90 Tablet 3 10/12/2023 Active Furosemide 20 MG Oral Tablet (Lasix)Indications:H TN, goal below 130/80,Chronic diastolic heart failure (HCC),Localized edema Take 2 Tablets by mouth in the morning. In the morning.. 180 Tablet 2 02/21/2024 Active Breztri Aerosphere 160-9-4.8 MCG/ACT Inhalation Aerosol (Budeson-Glycopyrrol -Formoterol)Indicati ons:COPD, group D, by GOLD 2017 classification ([facility]) Inhale 2 Puffs by mouth in the morning and 2 Puffs before bedtime. 32.1 g 3 02/21/2024 Active ProAir HFA 108 (90 Base) MCG/ACT Inhalation Aerosol SolutionIndications: COPD, group D, by GOLD 2017 classification ([facility]) Inhale 2 Puffs by mouth every 4 hours as needed for Cough, Shortness of Breath or Wheezing. 54 g 3 02/21/2024 Active Sulfamethoxazole-Tri methoprim 800-160 MG Oral Tablet (Bactrim DS) Take 1 Tablet by mouth in the morning and 1 Tablet before bedtime. Do all this for 10 days. Until gone.. 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 Change to toprol. Start xarelto. 2007? converted with IV diltiazem Routine general medical exam ination at a health care facility 09/05/2013 Overview: 02/26 TTE [facility] normal EF Grade II Ghosh DYs, mild [...] mRNA, LNP-s, No Pre serve, 2-Dose Series ([employer]) 01/26/2022,03/08/2021,08/20/2020,07/30 Pneumococcal Polysaccharide PPV23 (Pneumovax) 05/13/2009 Seasonal [...] Notes * Telephone Encounter - Phong Downs RPh - 03/01/2024 4:32 PM EDT Medication Therapy Disease Management - Anticoagulation Patient: Lila Rolle | : 1945 Subjective Patient-Reported Symptoms: Patient Findings Positives: Change in medications (10 day supply of bactrim DS started today. pt given dose instructions. Next INR monday of next week.) Objective Current Warfarin Dose As of 03/01/2024 Warfarin maintenance plan: 1.25 mg (2.5 mg x 0.5) every Tue, Sat; 2.5 mg (2.5 mg x 1) all other days INR Result As of 03/01/2024 INR goal: 2.0-3.0 INR used for dosing: No new INR was available at the time of this encounter. Assessment & Plan Warfarin Plan As of 03/01/2024 Full warfarin instructions: 03/03: 1.25 mg; 03/07: 1.25 mg; 03/10: 1.25 mg; Otherwise 1.25 mg every Tue, Sat; 2.5 mg all other days Next INR check: 03/05/2024 Repeat PT/INR in 5 day(s) Weekly dose: temporarily decreased. Additional Dosing Information: Description Given patients aversion [...] services or time spent by another provider/QHP. Phong Downs [facility] Clinical Pharmacist 03/01/2024, 4:32 PM * Telephone Encounter - Burak Gannon [facility] - 03/01/2024 4:22 PM EDT Looks like patient has warfarin managed by SP. Burak Gannon, PharmD, [facility] [employer] Clinical Pharmacist 03/01/2024, 4:22 PM * Telephone Encounter - Tamera Neumann [facility] - 03/01/2024 3:27 PM EDT BPA fired for Bactrim Rx. Tamera Neumann [facility] Clinical Pharmacist 03/01/2024, 3:27 PM documented in this encounter Plan of Treatment Upcoming Encounters Date Type Department Care Team (Late st Contact Info) Description 03/05/2024 5:10 PM EDT Anticoagulation Pharmacy, [facility] [address] [facility] [place] [address] Pharmacist1, [facility] [address] [facility] [place] [place] [address] 04/26/2024 10:30 AM EST Office Visit Cardiology, [facility] [address] [facility] [place] [address] Kely Pepper, PACara [address] [facility] [place] [address] 05/17/2024 12:30 PM EST Imaging Radiology [facility] [address]st [facility] [address] [place] [address] 05/20/2024 12:40 PM EST Office Visit Pulmonary Medicine, [facility] [address] [facility] [place] [address] Segundo Clarke MD [address] [facility] [place] [address] 08/30/2024 12:20 PM EDT Office Visit [facility] [address] [place] [address] Khoa Hui MD [address] [place] [address] 03/18/2025 1:40 PM EDT Office Visit [facility] [address] [place] [address] Khoa Hui MD [address] [place] [address] Health Maintenance Due Date Last Done Comments Alpha-1 Antitrypsin 1961 Pneumococcal Vaccine: 65+ Years (2 of 2 - PCV) 05/13/2010 05/13/2009 Adult Wellness Visit 03/31/2018 03/31/2017 DXA Scan 09/18/2018 09/19/2011, 09/19/2011 Depression Screening 10/26/2019 10/25/2018 *ADVANCE DIRECTIVE NOT ON FILE 07/20/2021 DTap/Tdap Vaccines (2 - Td or Tdap) 09/13/2021 09/14/2011 HbA1c 07/25/2023 07/25/2022, 09/09/2019, 09/27/2018 COVID-19 Vaccine ( season) 2024 01/26/2022, [...] Advance Directives occurred with: Patient Care Teams Integrated Campaign Manager Relationship Specialty Start Date End Date Khoa Hui MD [address] [place] [address] PCP - General Family Medicine 05/19/14 documented as of this encounter"
--- OUTSIDE RECORDS SUMMARY | 2024-03-02 07:48 | External Medical Summary | Summary of Care ---
Author Name Unknown Organization [facility] Address [address] [facility] [place] [address] Phone [phone] Care Team Providers Care Ad Compositor Name Role Phone Khoa Hui MD Primary Care Provider + Reason for Visit * Reason Onset Date Comments medication change 03/01/2024 Encounter Details Date Type Department Care Team (Late st Contact Info) Description 03/01/2024 Telephone Pharmacy, [address] [place] [phone] Tamera Neumann, [facility] [address] [facility] [place] [address] medication change Allergies Active Allergy [...] Nasal Solution (Astelin)Indications :Rhinitis, nonallergic Administer 1 [place] into nostril in the morning and 1 [place] before bedtime. 90 mL 3 04/05/2023 Active Isosorbide Mononitrate ER 30 MG Oral Tablet Extended Release 24 Hour (Imdur)Indications:C AD in [place] artery Take 1 Tablet by mouth in the morning. 90 Tablet 3 07/05/2023 Active Nitroglycerin 0.4 MG Sublingual Tablet Sublingual (Nitrostat)Indicatio ns:CAD in [place] artery Place 1 Tablet under the tongue [...] ons:COPD, group D, by GOLD 2017 classification ([facility]) Inhale 2 Puffs by mouth in the morning and 2 Puffs before bedtime. 32.1 g 3 02/21/2024 Active ProAir HFA 108 (90 Base) MCG/ACT Inhalation Aerosol SolutionIndications: COPD, group D, by GOLD 2017 classification ([facility]) Inhale 2 Puffs by mouth every 4 [...] GOLD Classification Bladder mass 01/05/2022 Ureteral lesion, [place], right 01/05/2022 Chronic diastolic heart failure 07/01/2021 Pulmonary hypertension 07/01/2021 Lung nodule 07/01/2021 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 10/25/2018 Prediabetes 07/31/2018 Elevated TSH 07/31/2018 CAD in [place] artery 03/20/2015 Venous insufficiency 03/12/2014 Overview: 03/18 [...] mRNA, LNP-s, No Pre serve, 2-Dose Series ([employer]) 01/26/2022,03/08/2021,08/20/2020,07/30 Pneumococcal Polysaccharide PPV23 (Pneumovax) 05/13/2009 Seasonal [...] encounter Miscellaneous Notes * Telephone Encounter - Burak Gannon [facility] - 03/01/2024 4:22 PM EDT Looks like patient has warfarin managed by SPMihai Gannon, PharmD, [facility] Market Manager Clinical Pharmacist 03/01/2024, 4:22 PM * Telephone Encounter - Tamera Neumann [facility] - 03/01/2024 3:27 PM EDT BPA fired for Bactrim Rx. Tamera eNumann [facility] Clinical Pharmacist 03/01/2024, 3:27 PM documented in this encounter Plan of Treatment Upcoming Encounters Date Type Department Care Team (Late st Contact Info) Description 04/26/2024 10:30 AM EST Office Visit Cardiology, [facility] [address] [place] [address] Kely Pepper PA-C [address] [place] [address] 05/17/2024 12:30 PM EST Imaging [facility] [address] [place] [address] 05/20/2024 12:40 PM EST Office Visit Pulmonary Medicine, [facility] [address] [facility] [place] [address] Segundo Clarke MD [address] [place] [address] 08/30/2024 12:20 PM EDT Office Visit [facility] [address] [place] [address] Khoa Hui MD [address] [place] [address] 03/18/2025 1:40 PM EDT Office Visit [facility] [address] [place] [address] Khoa Hui MD [address] [place] [address] Health Maintenance Due Date Last Done Comments [...] Advance Directives occurred with: Patient Care Teams Ad Compositor Relationship Specialty Start Date End Date Khoa Hui MD [address] [place] [address] PCP - General Family Medicine 05/19/14 documented as of this encounter
--- OUTSIDE RECORDS SUMMARY | 2024-03-02 07:48 | External Medical Summary | Summary of Care ---
Author Name Unknown Organization [facility] Address [address] [place] [address] Phone [phone] Care Team Providers Care Log Data Technician Name Role Phone Khoa Hui MD Primary Care Provider + Reason for Visit * Reason Onset Date Comments Advice 03/01/2024 Encounter Details Date Type Department Care Team (Late st Contact Info) Description 03/01/2024 Telephone Pulmonary Medicine, [facility] [address] [place] [address] Services, Scheduling [address] [place] [address] Advice Allergies Active Allergy Reactions Criticality Noted [...] Nasal Solution (Astelin)Indications :Rhinitis, nonallergic Administer 1 [place] into nostril in the morning and 1 [place] before bedtime. 90 mL 3 04/05/2023 Active Isosorbide Mononitrate ER 30 MG Oral Tablet Extended Release 24 Hour (Imdur)Indications:C AD in [place] artery Take 1 Tablet by mouth in the morning. 90 Tablet 3 07/05/2023 Active Nitroglycerin 0.4 MG Sublingual Tablet Sublingual (Nitrostat)Indicatio ns:CAD in [place] artery Place 1 Tablet under the tongue [...] group D, by GOLD 2017 classification ([facility]) Inhale 2 Puffs by mouth in the morning and 2 Puffs before bedtime. 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 Change to toprol. Start xarelto. 2007? converted with IV diltiazem Routine general medical exam ination at a health care facility 09/05/2013 Overview: 02/26 TTE [facility] normal EF Grade II Ghosh [...] encounter Miscellaneous Notes * Telephone Encounter - Senia Vargas OSA - 03/01/2024 3:18 PM EDT Pts daughter Jo Ann called an [employer] still does not have the script or office notes from last visit for her to get the portable O2. If there are any questions please reach out to Jo Ann at [phone]. And [employer]'s fax is [phone] she spoke with Annita at [employer]. documented in this encounter Plan of Treatment Upcoming Encounters Date Type Department Care Team (Late st Contact Info) Description 04/26/2024 10:30 AM EST Office Visit Cardiology, [facility] [address] [place] [address] Kely Pepper PA-C [address] [place] [address] 05/17/2024 12:30 PM EST Imaging Radiology [facility] 1st Floor, [place] [address] [place] [address] 05/20/2024 12:40 PM EST Office Visit [facility], [facility] [place] [address] Segundo Clarke MD [address] [place] [address] 08/30/2024 12:20 PM EDT Office Visit [facility] [address] [place] [address] Khoa Hui MD [address] [place] [address] 03/18/2025 1:40 PM EDT Office Visit [facility] [address] [place] [address] Khoa Hui MD [address] [place] [address] Health Maintenance Due Date Last Done Comments [...] Advance Directives occurred with: Patient Care Teams Log Data Technician Relationship Specialty Start Date End Date Khoa Hui MD [address] [place] [address] PCP - General Family Medicine 05/19/14 documented as of this encounter
--- OUTSIDE RECORDS SUMMARY | 2024-03-02 07:49 | External Medical Summary | Summary of Care ---
Author Name Unknown Organization [facility] Address [address] [place] [address] Phone [phone] Care Team Providers Care Team Coordinator Name Role Phone Khoa Hui MD Primary Care Provider + Reason for Visit * Reason Onset Date Comments Home Health 02/27/2024 Encounter Details Date Type Department Care Team (Late st Contact Info) Description 02/27/2024 Telephone Family Practice [facility] [address] [place] [address] Khoa Hui MD [address] [facility] [address] Home Health Allergies Active Allergy Reactions [...] Nasal Solution (Astelin)Indications: Rhinitis, nonallergic Administer 1 [place] into nostril in the morning and 1 [place] before bedtime. 90 mL 3 04/05/2023 Active Isosorbide Mononitrate ER 30 MG Oral Tablet Extended Release 24 Hour (Imdur)Indications:CA D in [place] artery Take 1 Tablet by mouth in the morning. 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 Change to toprol. Start xarelto. 2007? converted with IV diltiazem Routine general medical exam ination at a health care facility 09/05/2013 Overview: 02/26 TTE [facility] normal EF Grade II Ghosh [...] encounter Miscellaneous Notes * Telephone Encounter - Jody Martinez LPN - 03/01/2024 1:49 PM EDT HH Concerns Debra RN, Calling from: [facility] Report/Concerns of: Right leg swelling/red Symptoms: See Narrative Vitals: T-97.3 P-70 RR-18 BP-108/60 SP O2-79% RA- with 3 LPM via NC 92% Lung sounds-Clear Weight-REF Narrative:Debra was in to see patient today. Right lower leg edematous and red from foot up to calf. Patient noticed discoloration starting on 02/28 and thinks it is from eating beets and drinking wine. Bilateral lower leg swelling has improved since 02/26 HH nursing visit. Denies increase SOB and pain. Per HH not WTT. Taking 40 mg Lasix daily. 02/21/2024 hospital F/U appt with PCP from [facility] for Cellulitis and acute on chronic respiratory failure due to exacerbation of COPD. Treated with Doxycyline 100 mg BID x 5 days,Prednisone 20 mg Daily x 3 days, mucinex, benzonatate, and Amoxicillin 500-125 mg TID x 5 days. No appt's available today at any local clinics Patient told Debra that the PCP office better not call and tell her to go to ER Please advice Call back Debra with any advice or orders at [phone] Please fax new orders to * Telephone Encounter - Florence Smith LPN - 03/01/2024 10:01 AM EDT Called [facility]. They are scheduled to see patient Monday morning and can draw lab. Faxed orderto ana [...] - 02/29/2024 3:01 PM EDT Cardiology (Savita Pepper) ordered BMP to recheck her kidneys, to [...] patient to call office if symptoms change. PCP-LICHA * Telephone Encounter - Avani Espinoza CRNP [...] 02/27/2024 3:29 PM EDT HH Concerns Reanna JO, Calling from: [employer] [facility] Report/Concerns of: Edema, cough Symptoms: see below. [...] Any questions or concern you can Call [facility] back at: [phone] Spoke with Jacquie in office, she will bring to covering providers attention. * Telephone Encounter - Nancie Beckwith OSA - 02/27/2024 3:26 PM EDT Reason for call: Ms. Forte from [facility] called requesting to speak w/ a nurse Caller was transferred to Elvira at the nurse line. documented in this encounter Plan of Treatment Upcoming Encounters Date Type Department Care Team (Late st Contact Info) Description 04/26/2024 10:30 AM EST Office Visit Cardiology, [facility] [address] [place] [address] Kely Pepper PA-C [address] [place] [address] 05/17/2024 12:30 PM EST Imaging Radiology [facility] 1st Floor, [place] [address] [place] [address] 05/20/2024 12:40 PM EST Office Visit Pulmonary Medicine, [facility] 132 [facility] [place] [address] Segundo Clarke MD [address] [place] [address] 08/30/2024 12:20 PM EDT Office Visit [facility] [address] [facility] [place] [address] Khoa Hui MD [address] [facility] [place] [address] 03/18/2025 1:40 PM EDT Office Visit [facility] [place] [address] Khoa Hui MD [address] [facility] [place] [address] Health Maintenance Due Date Last Done Comments [...] Directives occurred with: Patient Care Teams Team Coordinator Relationship Specialty Start Date End Date Khoa Hui MD [address] [place] [address] PCP - General Family Medicine 05/19/14 documented as of this encounter
--- OUTSIDE RECORDS SUMMARY | 2024-03-02 07:49 | External Medical Summary | Summary of Care ---
Author Name Unknown Organization [facility] Address [address] [place] [address] Phone [phone] Care Team Providers Care Wood Piler Name Role Phone Khoa Hui MD Primary Care Provider + Reason for Visit * Reason Onset Date Comments Home Health 02/27/2024 Encounter Details Date Type Department Care Team (Late st Contact Info) Description 02/27/[address] [facility] [address] [place] [address] Khoa Hui MD [address] [place] [address] Home Health Allergies Active Allergy Reactions [...] Solution (Astelin)Indications: Rhinitis, nonallergic Administer 1 [place] into nostril in the morning and 1 [place] before bedtime. 90 mL 3 04/05/2023 Active Isosorbide Mononitrate ER 30 MG Oral Tablet Extended Release 24 Hour (Imdur)Indications:CA D in [place] artery Take 1 Tablet by mouth in the morning. 90 Tablet 3 07/05/2023 Active Nitroglycerin 0.4 MG Sublingual Tablet Sublingual (Nitrostat)Indication s:CAD in [place] artery Place 1 Tablet under the tongue [...] D, by GOLD 2017 classification ([facility]) Inhale 2 Puffs by mouth in the morning and 2 Puffs before bedtime. 32.1 g 3 02/21/2024 Active ProAir HFA 108 (90 Base) MCG/ACT Inhalation Aerosol SolutionIndications:C OPD, group D, by GOLD 2017 classification ([facility]) Inhale 2 Puffs by mouth every 4 hours as needed for Cough, Shortness of Breath or Wheezing. 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 Change to toprol. Start xarelto. 2007? converted with IV diltiazem Routine general medical exam ination at a health care facility 09/05/2013 Overview: 02/26 TTE [facility] normal EF Grade II Ghosh [...] EDT HH Concerns Debra RN, Calling from: [facility] Report/Concerns of: Right leg swelling/red Symptoms: See Narrative Vitals: T-97.3 P-70 RR-18 BP-108/60 SP O2-79% RA- with 3 LPM via NC 92% Lung sounds-Clear Weight-REF Narrative:Debra was in to see patient today. Right lower leg edematous and red from foot up to calf. Weeping of clear liquid. Patient noticed discoloration starting on 02/28 and thinks it is from eating beets and drinking wine. Bilateral lower leg swelling has improved since 02/26 HH nursing visit. Denies increase SOB and pain. Per HH not WTT. Taking 40 mg Lasix daily. 02/21/2024 hospital F/U appt with PCP from [facility] for Cellulitis and acute on chronic respiratory failure due to exacerbation of COPD. Treated with Doxycyline 100 mg BID x 5 days,Prednisone 20 mg Daily x 3 days, mucinex, benzonatate, and Amoxicillin 500-125 mg TID x 5 days. Next Nursing HH visit 03/05 No appt's available today at any local clinics Patient told Debra that the PCP office better not call and tell her to go to ER Contacted Billy will give a provider above message. Please advice Call back Debra with any advice or orders at [phone] Please fax new orders to * Telephone Encounter - Florence Smith LPN - 03/01/2024 10:01 AM EDT Called [facility]. They are scheduled to see patient Monday and can draw lab. Faxed orderto [facility] [employer]. * Telephone Encounter - Kely Pepper PA-C [...] Gallagher LPN - 02/27/2024 3:29 PM EDT Concerns Reanna RN, Calling from: [employer] [facility] Report/Concerns of: Edema, cough Symptoms: see below. [...] Any questions or concern you can Call [facility] back at: [phone] Spoke with Jacquie in office, she will bring to covering providers attention. * Telephone Encounter - Nancie Beckwith OSA - 02/27/2024 3:26 PM EDT Reason for call: Ms. Forte from [facility] called requesting to speak w/ a nurse Caller was transferred to [place] at the nurse line. documented in this encounter Plan of Treatment Upcoming Encounters Date Type Department Care Team (Late st Contact Info) Description 04/26/2024 10:30 AM EST Office Visit Cardiology, [facility] [address] [place] [address] Kely Pepper PA-C [address] [address] 05/17/2024 12:30 PM EST Imaging Radiology [address] [place] [address] 05/20/2024 12:40 PM EST Office Visit Pulmonary Medicine, [facility] [address] [facility] [place] [address] Segundo Clarke MD [address] [address] 08/30/2024 12:20 PM EDT Office Visit [facility] [address] [facility] [place] [address] Khoa Hui MD [address] [place] [address] 03/18/2025 1:40 PM EDT Office [facility] [place] [address] Khoa Hui MD [address] [facility] [place] [address] Health Maintenance Due Date Last Done Comments [...] Advance Directives occurred with: Patient Care Teams Wood Piler Relationship Specialty Start Date End Date Khoa Hui MD [address] [address] PCP - General Family Medicine 05/19/14 documented as of this encounter
--- OUTSIDE RECORDS SUMMARY | 2024-03-02 07:49 | External Medical Summary | Summary of Care ---
Author Name Unknown Organization [facility] Address [address] [place] [address] Phone [phone] Care Team Providers Care Senior Web Architect Name Role Phone Khoa Hui MD Primary Care Provider + Reason for Visit * Reason Onset Date Comments Home Health 02/27/2024 Encounter Details Date Type Department Care Team (Late st Contact Info) Description 02/27/2024 Telephone Family Practice [facility] [address] [place] [address] Khoa Hui MD [address] [place] [address] Home Health Allergies Active Allergy Reactions [...] Nasal Solution (Astelin)Indications: Rhinitis, nonallergic Administer 1 [place] into nostril in the morning and 1 [place] before bedtime. 90 mL 3 04/05/2023 Active Isosorbide Mononitrate ER 30 MG Oral Tablet Extended Release 24 Hour (Imdur)Indications:CA D in [place] artery Take 1 Tablet by mouth in the morning. 90 Tablet 3 07/05/2023 Active Nitroglycerin 0.4 MG Sublingual Tablet Sublingual (Nitrostat)Indication s:CAD in [place] artery Place 1 Tablet under the tongue [...] s:COPD, group D, by GOLD 2017 classification ([facility]) Inhale 2 Puffs by mouth in the morning and 2 Puffs before bedtime. 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 Please advice Call back Debra with any advice or orders at [phone] Please fax new orders to * Telephone Encounter - Florence Smith LPN - 03/01/2024 10:01 AM EDT Called [facility]. They are scheduled to see patient Monday morning and can draw lab. Faxed orderto [facility]. * Telephone Encounter - Kely Pepper [...] PM EDT Concerns Reanna RN, Calling from: [facility] Report/Concerns of: Edema, cough Symptoms: see below. [...] Any questions or concern you can Call [place] [employer] [facility] back at: [phone] Spoke with Jacquie in office, she will bring to covering providers attention. * Telephone Encounter - Nancie Beckwith OSA - 02/27/2024 3:26 PM EDT Reason for call: Ms. Forte from [facility] called requesting to speak w/ a nurse Caller was transferred to [place] at the nurse line. documented in this encounter Plan of Treatment Upcoming Encounters Date Type Department Care Team (Late st Contact Info) Description 04/26/2024 10:30 AM EST Office Visit Cardiology, [facility] [address] [address] Kely Pepper PA-C [address] [place] [address] 05/17/2024 12:30 PM EST Imaging Radiology [facility] [place] [address] [address] 05/20/2024 12:40 PM EST Office Visit Pulmonary Medicine, [facility] [address] [facility] [place] [address] Segundo Clarke MD [address] [place] [address] 08/30/2024 12:20 PM EDT [facility] [address] [facility] [place] [address] Khoa Hui MD [address] [facility] [place] [address] 03/18/2025 1:40 PM EDT [facility] [address] [facility] [place] [address] Khoa Hui MD [address] [facility] [place] [address] Health Maintenance Due Date Last Done Comments [...] Advance Directives occurred with: Patient Care Teams Senior Web Architect Relationship Specialty Start Date End Date Khoa Hui MD 132 [facility] [place] [address] PCP - General Family Medicine 05/19/14 documented as of this encounter
--- OUTSIDE RECORDS SUMMARY | 2024-03-02 07:49 | External Medical Summary | Summary of Care ---
Author Name Unknown Organization [facility] Address [address] [place] [address] Phone [phone] Care Team Providers Care Corn Cooker Name Role Phone Khoa Hui MD Primary Care Provider + Reason for Visit * Reason Onset Date Comments medication change 03/01/2024 Encounter Details Date Type Department Care Team (Late st Contact Info) Description 03/01/2024 Telephone Pharmacy, [address] [place] [phone] Tamera Neumann, [facility] [address] [facility] [place] [address] medication change Allergies Active [...] Nasal Solution (Astelin)Indications :Rhinitis, nonallergic Administer 1 [place] into nostril in the morning and 1 [place] before bedtime. 90 mL 3 04/05/2023 Active Isosorbide Mononitrate ER 30 MG Oral Tablet Extended Release 24 Hour (Imdur)Indications:C AD in [place] artery Take 1 Tablet by mouth in the morning. 90 Tablet 3 07/05/2023 Active Nitroglycerin 0.4 MG Sublingual Tablet Sublingual (Nitrostat)Indicatio ns:CAD in [place] artery Place 1 Tablet under the [...] ons:COPD, group D, by GOLD 2017 classification ([facility]) Inhale 2 Puffs by mouth in the morning and 2 Puffs before bedtime. 32.1 g 3 02/21/2024 Active ProAir HFA 108 (90 Base) MCG/ACT Inhalation Aerosol SolutionIndications: COPD, group D, by GOLD 2017 classification ([facility]) Inhale 2 Puffs by mouth every 4 [...] GOLD Classification Bladder mass 01/05/2022 Ureteral lesion, [place], right 01/05/2022 Chronic diastolic heart failure 07/01/2021 Pulmonary hypertension 07/01/2021 Lung nodule 07/01/2021 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 10/25/2018 Prediabetes 07/31/2018 Elevated TSH 07/31/2018 CAD in [place] artery 03/20/2015 Venous insufficiency 03/12/2014 Overview: 03/18 --no DVT LLE Paroxysmal atrial fibrillation 02/04/2014 Overview: 01/16-[facility] hosp w/rapid response. Change to toprol. Start xarelto. 2007? converted with IV diltiazem Routine general medical exam ination at a health care facility 09/05/2013 Overview: 02/26 TTE [facility] normal EF Grade II Ghosh DYs, [...] mRNA, LNP-s, No Pre serve, 2-Dose Series ([facility]) 01/26/2022,03/08/2021,08/20/2020,07/30 Pneumococcal Polysaccharide PPV23 (Pneumovax) 05/13/2009 Seasonal [...] encounter Miscellaneous Notes * Telephone Encounter - Tamera Neumann RPh - 03/01/2024 3:27 PM EDT BPA fired for Bactrim Rx. Tamera Neumann RPH Clinical Pharmacist 03/01/2024, 3:27 PM documented in this encounter Plan of Treatment Upcoming Encounters Date Type Department Care Team (Late st Contact Info) Description 04/26/2024 10:30 AM EST Office Visit Cardiology, [facility] [address] [place] [address] Kely Pepper PA-C [address] [place] [address] 05/17/2024 12:30 PM EST Imaging Radiology [facility] 1st Floor, [place] [address] [place] [address] 05/20/2024 12:40 PM EST Office Visit Pulmonary Medicine, [facility] [address] [facility] [place] [address] Segundo Clarke MD [address] [address] 08/30/2024 12:20 PM EDT Office Visit Family Practice [facility] [place] [address] Khoa Hui MD [address] [place] [address] 03/18/2025 1:40 PM EDT Office Visit Family Practice [facility] [address] [place] [address] Khoa Hui MD [address] [place] [address] Health Maintenance Due Date Last Done Comments [...] Advance Directives occurred with: Patient Care Teams Corn Cooker Relationship Specialty Start Date End Date Khoa Hui MD [address] [facility] [place] [address] PCP - General Family Medicine 05/19/14 documented as of this encounter
--- OUTSIDE RECORDS SUMMARY | 2024-03-02 07:49 | External Medical Summary | Summary of Care ---
Author Name Unknown Organization [facility] Address [address] [place] [address] Phone [phone] Care Team Providers Care Ship Loader Name Role Phone Khoa Hui MD Primary Care Provider + Reason for Visit * Reason Onset Date Comments Advice 03/01/2024 Encounter Details Date Type Department Care Team (Late st Contact Info) Description 03/01/2024 Telephone Family Practice [facility] [address] [facility] [address] Khoa Hui MD [address] [facility] [place] [address] Advice Allergies Active Allergy [...] Nasal Solution (Astelin)Indications: Rhinitis, nonallergic Administer 1 [place] into nostril in the morning and 1 [place] before bedtime. 90 mL 3 04/05/2023 Active Isosorbide Mononitrate ER 30 MG Oral Tablet Extended Release 24 Hour (Imdur)Indications:CA D in [place] artery Take 1 Tablet by mouth in the morning. 90 Tablet 3 07/05/2023 Active Nitroglycerin 0.4 MG Sublingual Tablet Sublingual (Nitrostat)Indication s:CAD in [place] artery Place 1 Tablet under the tongue [...] group D, by GOLD 2017 classification ([facility]) Inhale 2 Puffs by mouth in the morning and 2 Puffs before bedtime. 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 Change to toprol. Start xarelto. 2007? converted with IV diltiazem Routine general medical exam ination at a health care facility 09/05/2013 Overview: 02/26 TTE [facility] normal EF Grade II Ghosh DYs, mild [...] Encounter - Jody Martinez LPN - 03/01/2024 2:32 PM EDT Error. Multiple TE See 02/27/24 TE * Telephone Encounter - Josie Singh OSA - 03/01/2024 1:42 PM EDT Reason for patient's call: Reanna from [facility] Caller was transferred to [place] at the nurse line. documented in this encounter Plan of Treatment Upcoming Encounters Date Type Department Care Team (Late st Contact Info) Description 04/26/2024 10:30 AM EST Office Visit Cardiology, [facility] [address] [facility] [place] [address] Kely Pepper PA-C [address] [place] [address] 05/17/2024 12:30 PM EST Imaging Radiology [facility] 1st Floor, [place] [address] [facility] [place] [address] 05/20/2024 12:40 PM EST Office Visit Pulmonary Medicine, [facility] [address] [facility] [place] [address] Segundo Clarke MD [address] [address] 08/30/2024 12:20 PM EDT Office Visit Family Practice [facility] [address] [facility] [place] [address] Khoa Hui MD [address] [place] [address] 03/18/2025 1:40 PM EDT Office Visit Family [facility] [address] [place] [address] Khoa Hui MD [address] [place] [address] Health Maintenance Due Date Last Done Comments [...] Advance Directives occurred with: Patient Care Teams Ship Loader Relationship Specialty Start Date End Date Khoa Hui MD [address] [place] [address] PCP - General Family Medicine 05/19/14 documented as of this encounter
--- OUTSIDE RECORDS SUMMARY | 2024-03-02 07:49 | External Medical Summary | Summary of Care ---
Author Name Unknown Organization [facility] Address [address] [place] [address] Phone [phone] Care Team Providers Care Cream Maker Name Role Phone Khoa Hui MD Primary Care Provider + Reason for Visit * Reason Onset Date Comments Home Health 02/27/2024 Encounter Details Date Type Department Care Team (Late st Contact Info) Description 02/27/2024 Telephone Family Practice [facility] [address] [place] [address] Khoa Hui MD [address] [address] Home Health Allergies Active Allergy Reactions [...] Nasal Solution (Astelin)Indications :Rhinitis, nonallergic Administer 1 [place] into nostril in the morning and 1 [place] before bedtime. 90 mL 3 04/05/2023 Active Isosorbide Mononitrate ER 30 MG Oral Tablet Extended Release 24 Hour (Imdur)Indications:C AD in [place] artery Take 1 Tablet by mouth in the morning. 90 Tablet 3 07/05/2023 Active Nitroglycerin 0.4 MG Sublingual Tablet Sublingual (Nitrostat)Indicatio ns:CAD in [place] artery Place 1 Tablet under the tongue [...] ons:COPD, group D, by GOLD 2017 classification ([facility]) Inhale 2 Puffs by mouth in the morning and 2 Puffs before bedtime. 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 Change to toprol. Start xarelto. 2007? converted with IV diltiazem Routine general medical exam ination at a health care facility 09/05/2013 Overview: 02/26 TTE [facility] normal EF Grade II Ghosh DYs, [...] mRNA, LNP-s, No Pre serve, 2-Dose Series ([employer]) 01/26/2022,03/08/2021,08/20/2020,07/30 Pneumococcal Polysaccharide PPV23 (Pneumovax) 05/13/2009 Seasonal [...] encounter Miscellaneous Notes * Addendum Note - Stefani Banuelos MD - 03/01/2024 2:36 PM EDTAddended by: STEFANI BANUELOS on: 03/01/2024 02:36 PM Modules accepted: Orders * Telephone Encounter - Stefani Banuelos MD - 03/01/2024 2:35 PM EDT Bactrim sent for Cellulitis so as not to repeat doxy so soon after treatment. I know she doesn't want to go to the ER, but unfortunately if she gets any worse she will have to over the weekend. * Telephone Encounter - Jody Martinez LPN - 03/01/2024 1:49 PM EDT HH Concerns Debra RN, Calling from: [employer] [facility] Report/Concerns of: Right leg swelling/red Symptoms: [...] lower leg swelling has improved since 02/26 nursing visit. Denies increase SOB and pain. Per HH not WTT. Taking 40 mg Lasix daily. 02/21/2024 hospital F/U appt with PCP from [facility] for Cellulitis and acute on chronic respiratory [...] Debra with any advice or orders at [phone] Please fax new orders to * Telephone Encounter - Florence Smith LPN - 03/01/2024 10:01 AM EDT Called [facility] [employer]. They are scheduled to see patient Monday and can draw lab. Faxed orderto [employer]. * Telephone Encounter - Kely Pepper PA-C [...] EDT HH Concerns Reanna RN, Calling from: [facility] Report/Concerns of: Edema, cough Symptoms: see below. [...] Any questions or concern you can Call [facility] back at: [phone] Spoke with Jacquie in office, she will bring to covering providers attention. * Telephone Encounter - Nancie Beckwith OSA - 02/27/2024 3:26 PM EDT Reason for call: Ms. Forte from [facility] called requesting to speak w/ a nurse Caller was transferred to [facility] at the nurse line. documented in this encounter Plan of Treatment Upcoming Encounters Date Type Department Care Team (Late st Contact Info) Description 04/26/2024 10:30 AM EST Office Visit Cardiology, [facility] [address] [facility] [place] [address] Kely Pepper PA-C [address] [place] [address] 05/17/2024 12:30 PM EST Imaging [facility] [place] [address] 05/20/2024 12:40 PM EST Office Visit Pulmonary Medicine, [facility] [address] [facility] [place] [address] Segundo Clarke MD [address] [place] [address] 08/30/2024 12:20 PM EDT Office Visit [facility] [address] [address] Khoa Hui MD [address] [place] [address] 03/18/2025 1:40 PM EDT Office Visit [facility] [address] [place] [address] Khoa Hui MD [address] [place] [address] Health Maintenance Due Date Last Done Comments [...] Advance Directives occurred with: Patient Care Teams Cream Maker Relationship Specialty Start Date End Date Khoa Hui MD [address] [place] [address] PCP - General Family Medicine 05/19/14 documented as of this encounter
--- OUTSIDE RECORDS SUMMARY | 2024-03-02 07:49 | External Medical Summary | Summary of Care ---
Author Name Unknown Organization [facility] Address [address] [place] [address] Phone [phone] Care Team Providers Care Material Chaser Name Role Phone Khoa Hui MD Primary Care Provider + Reason for Visit * Reason Onset Date Comments Home Health 02/27/2024 Encounter Details Date Type Department Care Team (Late st Contact Info) Description 02/27/2024 Telephone Family Practice [facility] [address] [place] [address] Khoa Hui MD [address] [place] [address] Home Health Allergies Active [...] Nasal Solution (Astelin)Indications: Rhinitis, nonallergic Administer 1 [place] into nostril in the morning and 1 [place] before bedtime. 90 mL 3 04/05/2023 Active Isosorbide Mononitrate ER 30 MG Oral Tablet Extended Release 24 Hour (Imdur)Indications:CA D in [place] artery Take 1 Tablet by mouth in the morning. 90 Tablet 3 07/05/2023 Active Nitroglycerin 0.4 MG Sublingual Tablet Sublingual (Nitrostat)Indication s:CAD in [place] artery Place 1 Tablet under the tongue [...] [facility]) Inhale 2 Puffs by mouth every [...] Classification Bladder mass 01/05/2022 Ureteral lesion, [place], right 01/05/2022 Chronic diastolic heart failure 07/01/2021 Pulmonary hypertension 07/01/2021 Lung nodule 07/01/2021 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 10/25/2018 Prediabetes 07/31/2018 Elevated TSH 07/31/2018 CAD in [place] artery 03/20/2015 Venous insufficiency 03/12/2014 Overview: 03/18 [...] EDT HH Concerns Debra RN, Calling from: [facility] Report/Concerns of: Right leg swelling/red Symptoms: [...] 02/21/2024 hospital F/U appt with PCP from [facility] for Cellulitis and acute on chronic [...] to go to ER Contacted MARK and Bina will give a provider above message. Please advice Call back Debra with any advice or orders at [phone] Please fax new orders to * Telephone Encounter - Florence Smith LPN - 03/01/2024 10:01 AM EDT Called [facility]. They are scheduled to see patient Monday [...] PM EDT Concerns Reanna RN, Calling from: [facility] Report/Concerns of: Edema, cough Symptoms: see below. [...] Any questions or concern you can Call [facility] back at: [phone] Spoke with Jacquie in office, she will bring to covering providers attention. * Telephone Encounter - Nancie Beckwith OSA - 02/27/2024 3:26 PM EDT Reason for call: Ms. Forte from [facility] called requesting to speak w/ a nurse Caller was transferred to Elvira at the nurse line. documented in this encounter Plan of Treatment Upcoming Encounters Date Type Department Care Team (Late st Contact Info) Description 04/26/2024 10:30 AM EST Office Visit Cardiology, [facility] [address] [place] [address] Kely Pepper PA-C [address] [place] [address] 05/17/2024 12:30 PM EST Imaging Radiology [facility]st [facility] [place] [address] [place] [address] 05/20/2024 12:40 PM EST Office Visit Pulmonary Medicine, [facility] 132 [facility] [place] [address] Segundo Clarke MD [address] [place] [address] 08/30/2024 12:20 PM EDT Office Visit [facility] 132 [facility] [place] [address] Khoa Hui MD 132 [facility] [place] [address] 03/18/2025 1:40 PM EDT Office Visit [facility] 132 [facility] [place] [address] Khoa Hui MD 132 [facility] [place] [address] Health Maintenance Due Date Last Done Comments [...] Advance Directives occurred with: Patient Care Teams Material Chaser Relationship Specialty Start Date End Date Khoa Hui MD 132 [facility] [place] [address] PCP - General Family Medicine 05/19/14 documented as of this encounter
--- OUTSIDE RECORDS SUMMARY | 2024-03-02 07:49 | External Medical Summary | Summary of Care ---
Author Name Unknown Organization [facility] Address [address] [place] [address] Phone [phone] Care Team Providers Care Sports Centre Manager Name Role Phone Khoa Hui MD Primary Care Provider + Reason for Visit * Reason Onset Date Comments Home Health 02/27/2024 Encounter Details Date Type Department Care Team (Late st Contact Info) Description 02/27/2024 Telephone Family Practice [facility] [address] [place] [address] Khoa Hui MD [address] [place] [address] Home Health Allergies Active Allergy Reactions [...] Nasal Solution (Astelin)Indications :Rhinitis, nonallergic Administer 1 [place] into nostril in the morning and 1 [place] before bedtime. 90 mL 3 04/05/2023 Active Isosorbide Mononitrate ER 30 MG Oral Tablet Extended Release 24 Hour (Imdur)Indications:C AD in [place] artery Take 1 Tablet by mouth in the morning. 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 Change to toprol. Start xarelto. 2007? converted with IV diltiazem Routine general medical exam ination at a health care facility 09/05/2013 Overview: 02/26 TTE [facility] normal EF Grade II Ghosh DYs, mild [...] mRNA, LNP-s, No Pre serve, 2-Dose Series (Feusd) 01/26/2022,03/08/2021,08/20/2020,07/30 Pneumococcal Polysaccharide PPV23 (Pneumovax) 05/13/2009 Seasonal [...] Encounter - Florence Smith LPN - 03/01/2024 2:50 PM EDT Called and spoke with Reanna from [employer]. Notified of antibiotic and advice. Called and spokewith patient. Notified of below. Patient verbalized understanding. * Addendum Note - Stefani Banuelos MD [...] Martinez LPN - 03/01/2024 1:49 PM EDT Concerns Debra JO, Calling from: [facility] Report/Concerns of: Right leg swelling/red Symptoms: [...] 02/21/2024 hospital F/U appt with PCP from [facility] for Cellulitis and acute on chronic respiratory [...] Debra with any advice or orders at [phone] Please fax new orders to * Telephone [...] - 02/29/2024 3:01 PM EDT Cardiology (Savita Brennanan) ordered BMP to recheck her kidneys, to [...] Please advise. * Telephone Encounter - Vero Goznales LPN - 02/27/2024 3:45 PM EDT S/w JAZZMINE phone. Edema is more significant than before. nurse wanted to report it. Should pt go toER for eval? HH was not on other line to speak with. We can call pt and suggest ER if you agree. * Telephone Encounter - Elvira Gallagher LPN - 02/27/2024 3:29 PM EDT HH Concerns Reanna RN, Calling from: [facility] Report/Concerns of: Edema, cough Symptoms: [...] Any questions or concern you can Call [facility] back at: [phone] Spoke with Jcaquie in office, she will bring to covering providers attention. * Telephone Encounter - Nancie Beckwith OSA - 02/27/2024 3:26 PM EDT Reason for call: Ms. Forte from [facility] called requesting to speak w/ a nurse Caller was transferred to Elvira at the nurse line. documented in this encounter Plan of Treatment Upcoming Encounters Date Type Department Care Team (Late st Contact Info) Description 04/26/2024 10:30 AM EST Office Visit Cardiology, [facility] 132 [facility] [place] [address] Kely Pepper PA-C [address] [place] [address] 05/17/2024 12:30 PM EST Imaging Radiology [facility]st [facility] [place] [address] 05/20/2024 12:40 PM EST Office Visit Pulmonary Medicine, [facility] 132 [facility] [place] [address] Segundo Clarke MD [address] [place] [address] 08/30/2024 12:20 PM EDT Office Visit Family Practice [facility] [address] [place] [address] Khoa Hui MD [address] [place] [address] 03/18/2025 1:40 PM EDT Office Visit Family Practice [facility] [address] [place] [address] Khoa Hui MD [address] [place] [address] Health Maintenance Due Date Last Done Comments Alpha-1 Antitrypsin 1961 Pneumococcal Vaccine: 65+ Years (2 of 2 - PCV) 05/13/2010 05/13/2009 Adult Wellness Visit 03/31/2018 03/31/2017 DXA Scan 09/18/2018 09/19/2011, 09/19/2011 Depression Screening 10/26/2019 10/25/2018 *ADVANCE DIRECTIVE NOT ON FILE 07/20/2021 DTap/Tdap Vaccines (2 - Td or Tdap) 09/13/2021 09/14/2011 HbA1c 07/25/2023 07/25/2022, 090 09/2019, 09/27/2018 COVID-19 Vaccine ( season) 2024 [...] Directives occurred with: Patient Care Teams Sports Centre Manager Relationship Specialty Start Date End Date Khoa Hui MD [address] [place] [address] PCP - General Family Medicine 05/19/14 documented as of this encounter
--- OUTSIDE RECORDS SUMMARY | 2024-03-02 07:49 | External Medical Summary | Summary of Care ---
Author Name Unknown Organization [facility] Address [address] [place] [address] Phone [phone] Care Team Providers Care Head Still Operator Name Role Phone Khoa Hui MD Primary Care Provider + Reason for Visit * Reason Onset Date Comments Home Health 02/27/2024 Encounter Details Date Type Department Care Team (Late st Contact Info) Description 02/27/2024 Telephone Family Practice [facility] [address] [place] [address] Khoa Hui MD [address] [place] [address] Home Health Allergies Active Allergy Reactions [...] Nasal Solution (Astelin)Indications :Rhinitis, nonallergic Administer 1 [place] into nostril in the morning and 1 [place] before bedtime. 90 mL 3 04/05/2023 Active Isosorbide Mononitrate ER 30 MG Oral Tablet Extended Release 24 Hour (Imdur)Indications:C AD in [place] artery Take 1 Tablet by mouth in the morning. 90 Tablet 3 07/05/2023 Active Nitroglycerin 0.4 MG Sublingual Tablet Sublingual (Nitrostat)Indicatio ns:CAD in [place] artery Place 1 Tablet under the tongue [...] ons:COPD, group D, by GOLD 2017 classification ([facility]) Inhale 2 Puffs by mouth in the morning and 2 Puffs before bedtime. 32.1 g 3 02/21/2024 Active ProAir HFA 108 (90 Base) MCG/ACT Inhalation Aerosol SolutionIndications: COPD, group D, by GOLD 2017 classification ([facility]) Inhale 2 Puffs by mouth [...] GOLD Classification Bladder mass 01/05/2022 Ureteral lesion, [place], right 01/05/2022 Chronic diastolic heart failure 07/01/2021 Pulmonary hypertension 07/01/2021 Lung nodule 07/01/2021 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 10/25/2018 Prediabetes 07/31/2018 Elevated TSH 07/31/2018 CAD in [place] artery 03/20/2015 Venous insufficiency 03/12/2014 Overview: 03/18 --no DVT LLE Paroxysmal atrial fibrillation 02/04/2014 Overview: 01/16-[facility] hosp w/rapid response. Change to toprol. Start xarelto. 2007? converted with IV diltiazem Routine general medical exam ination at a health care facility 09/05/2013 Overview: 02/26 TTE [facility] normal EF Grade II Ghosh DYs, mild [...] mRNA, LNP-s, No Pre serve, 2-Dose Series ([employer]) 01/26/2022,03/08/2021,08/20/2020,07/30 Pneumococcal Polysaccharide PPV23 (Pneumovax) 05/13/2009 Seasonal [...] EDT HH Concerns Debra RN, Calling from: [facility] Report/Concerns of: Right leg swelling/red Symptoms: [...] 02/21/2024 hospital F/U appt with PCP from [facility] for Cellulitis and acute on chronic respiratory [...] Debra with any advice or orders at [phone] Please fax new orders to * Telephone Encounter - Florence Smith LPN - 03/01/2024 10:01 AM EDT Called [facility]. They are scheduled to see patient Monday and can draw lab. Faxed orderto [facility]. * Telephone Encounter - Kely Pepper PA-C [...] EDT HH Concerns Reanna RN, Calling from: [facility] Report/Concerns of: Edema, cough Symptoms: see below. [...] Any questions or concern you can Call [facility] back at: [phone] Spoke with Jacquie in office, she will bring to covering providers attention. * Telephone Encounter - Nancie Beckwith OSA - 02/27/2024 3:26 PM EDT Reason for call: Ms. Forte from [facility] called requesting to speak w/ a nurse Caller was transferred to [facility] at the nurse line. documented in this encounter Plan of Treatment Upcoming Encounters Date Type Department Care Team (Late st Contact Info) Description 04/26/2024 10:30 AM EST Office Visit Cardiology, [facility] 132 [facility] [place] [address] Kely Pepper PA-C [address] [place] [address] 05/17/2024 12:30 PM EST Imaging [facility] [address] [facility] [place] [address] 05/20/2024 12:40 PM EST Office Visit Pulmonary Medicine, [facility] [address] [facility] [place] [address] Segundo Clarke MD [address] [place] [address] 08/30/2024 12:20 PM EDT Office Visit [facility] [address] [place] [address] Khoa Hui MD [address] [place] [address] 03/18/2025 1:40 PM EDT Office Visit [facility] [address] [place] [address] Khoa Hui MD [address] [place] [address] Health Maintenance Due Date Last Done Comments [...] Advance Directives occurred with: Patient Care Teams Head Still Operator Relationship Specialty Start Date End Date Khoa Hui MD [address] [place] [address] PCP - General Family Medicine 05/19/14 documented as of this encounter
[2024-03-02] MEDS: ALBUT/IPRATROP 3MG/0.5MG NEB 3 ML VIAL NEB SCH (08:38)
[2024-03-02] MEDS ORDERED: ALBUT/IPRATROP 3MG/0.5MG NEB 3 ML VIAL NEB PRN (08:39)
[2024-03-02] MEDS ORDERED: NON-FORMULARY MEDICATION (Budesonide-Glycopyr-Formoterol [Breztri Aerosphere] 160-9-4.8 mc INH SCH (09:00)
--- NOTE | 2024-03-02 12:15 | Electrocardiogram Report ---
Test Reason : Blood Pressure : */* mmHG Vent. Rate : 70 BPM Atrial Rate : 70 BPM P-R Int : 114 ms QRS Dur : 94 ms QT Int : 416 ms P-R-T Axes : 63 84 78 degrees QTcB Int : 449 ms Normal sinus rhythm Incomplete right bundle branch block Right axis deviation Borderline ECG When compared with ECG of 06-Feb-2024 14:37, T wave amplitude has increased in Inferior leads Confirmed by Zahra Jaquez (Denny) on 03/02/2024 9:31:22 AM Referred By: REFERRED SELF Confirmed By: Zahra Jaquez
--- NOTE | 2024-03-02 14:16 | Hospitalist Progress Note ---
Date of Service March 02, 2024 Assessment & Plan (1) Acute on chronic respiratory failure: Plan: Acute on chronic hypoxemic, hypercapnic respiratory failure Multifactorial: COPD exacerbation CHF exacerbation, history of diastolic dysfunction, right-sided heart failure symptoms Deconditioning Has been requiring 3 L to maintain saturation She feels a little better since admission (2) Acute exacerbation of chronic obstructive pulmonary disease (COPD): Plan: Has been getting nebulized bronchodilator, oral prednisone and also oral doxycycline Clinically a little better since admission (3) Fall: Plan: Has had worsening cough with shortness of breath for the last few days Noticed swelling of the legs as well Ended up with a fall with injury to the left leg and subsequent development of hematoma Will get PT and OT evaluation (4) Hematoma and contusion: Plan: Has hematoma involving posterior calf on the left side measuring 5.9 x 3.5 x 7.1 Complicated by use of Coumadin INR of 1.7 Will observe and monitor hemoglobin May need to have an Ortho evaluation if the condition gets worse (5) Cellulitis of left lower extremity: Plan: Will continue with doxycycline that will also help possible bronchitis (6) Paroxysmal atrial fibrillation: Plan: PAF on Coumadin, INR slightly subtherapeutic valvular heart disease (mild MR, moderate TR) rate remains controlled Coumadin is on hold now (7) SOB (shortness of breath): Plan: Other significant chronic medical conditions are as below: hx CAD status post stent hypertension, slight elevated hyperlipidemia, on statin Rx lung nodule likely malignancy, patient refused workup as per outpatient [facility] p ulmonologist note from 2 weeks ago, agreeable to serial CT monitoring as per documentation prediabetes, hemoglobin A1c of 6.6 this month, patient meets criteria for new diagnosis of DM2 bladder cancer status post surgery Ambulatory dysfunction ongoing tobacco abuse ISS BG goal 1 10-1 40, carb count coverage, DM education Nicotine replacement therapy as needed PT OT eval once medically stable Consider palliative care consult to discuss goals of care given chronic medical conditions and patient noncompliance with medical regimen. DVT prophylaxis. SCDs if INR less than 2 while Coumadin hold RE LLE hematoma DNR Patient requests for daughter to be given updates regarding care. Ms. Jo Ann Mohamud, contact #[phone]. (8) Venous insufficiency: Admission and Anticipated Discharge Date Admission Date: March 02, 2024 Subjective 03/02/2024 The patient was seen and examined in medical telemetry unit in presence of the daughter She has had a fall a few days back and injured mainly left leg and has been complaining of more shortness of breath since then Has had cough but denies any fever and or chills has been feeling a little better since admission Review of Systems Review of Systems: all systems reviewed and are unremarkable except as noted below Physical Exam Physical Exam: Lying in bed without any acute distress Constitutional: well developed, well nourished, + ill appearing and average body habitus Eyes: PERRL, conjunctivae normal, anicteric sclerae ENMT: external ear and nose normal, oropharynx normal Neck: trachea midline, no thyromegaly Respiratory: no respiratory distress Auscultation: + diminished lung sounds and + crackles ( bibasilar crackles) Cardiovascular: Rate/Rhythm: regular rate, regular rhythm and + bradycardic Heart Sounds: normal S1 and normal S2; no murmur Extremities: + edema ( 1+ edema bilaterally with chronic skin changes) Gastrointestinal (Abdomen): Inspection/Auscultation: normal bowel sounds; abdomen not distended Percussion/Palpation: abdomen soft; abdomen nontender Musculoskeletal: Left calf is swollen secondary to hematoma involving the medial mid calf secondary to fall Neurologic: normal touch/pain/proprioception and moves all extremities; no focal motor deficits Lymphatic: no cervical or axillary lymphadenopathy Results & Data Results & Data Vital Signs (Past 12 Hours) Vital Signs Temp Pulse Pulse Pulse Resp BP Pulse Ox 03/02/24 12:17 36.5 C 56 L 56 L 22 99/52 L 99 03/02/24 11:13 36.5 C 56 L 20 99 03/02/24 07:54 36.3 C L 60 56 L 22 105/57 L 100 03/02/24 07:41 03/02/24 07:15 52 L 03/02/24 02:46 60 03/02/24 02:46 36.4 C L 57 L 22 133/68 100 03/02/24 02:45 O2 Del Method O2 Flow Rate 03/02/24 12:17 Nasal Cannula 3 03/02/24 11:13 Nasal Cannula 3 03/02/24 07:54 Nasal Cannula 3 03/02/24 07:41 Nasal Cannula 3 03/02/24 07:15 03/02/24 02:46 03/02/24 02:46 Nasal Cannula 3 03/02/24 02:45 Nasal Cannula 3 Laboratory Results Short CBC 03/01/24 03/01/24 03/02/24 Range/Units 19:30 23:38 02:09 WBC 13.86 H 11.64 H (4.8-10.8) K/ul Hgb 12.2 12.2 12.1 (12.0-16.0) g/dl Hct 38.4 38.2 37.7 (37.0-47.0) % Plt Count 165 141 (130-400) K/uL BMP 03/01/24 03/02/24 19:30 02:09 Sodium 136 133 L Potassium 3.8 4.1 Chloride 95 L 91 L Carbon Dioxide 36 H 37 H BUN 16 18 Creatinine 0.64 0.71 Glucose 152 H 160 H Calcium 8.5 L 8.7 Cardiac Enzymes 03/01/24 Range/Units 19:30 Total Creatine Kinase 29 (26-192) U/L Liver Function 03/01/24 Range/Units 19:30 Total Bilirubin 1.3 H (0.2-1.0) mg/dl AST 19 (13-39) U/L ALT 22 (7-52) U/L Alkaline Phosphatase 69 (34-104) U/L Albumin 3.6 (3.4-5.0) gm/dl Urine 03/02/24 Range/Units 02:22 Urine Color Yellow Urine Appearance Clear (Clear) Urine pH 6.5 (4.5-7.5) Ur Specific [place] 1.024 (1.000-1.030) Urine Protein Negative (Negative) Urine Glucose (UA) Negative (Negative) Medications Administered Current Inpatient Medications Albuterol (Albut/Ipratrop 3mg/0.5mg Neb 3 Ml Vial) 3 ml NEB QIDR PRN; Protocol PRN Reason: Shortness Of Breath Or Wheezin Stop: 04/01/24 06:59 Dextrose (Dextrose 50% 50 Ml Syringe) 25 - 50 ml IV UD PRN; Protocol PRN Reason: Hypoglycemia Protocol Stop: 04/01/24 01:10 Doxycycline Hyclate (Doxycycline Hyclate 100 Mg Cap) 100 mg PO BID DONOVAN Stop: 03/09/24 08:59 Last Admin: 03/02/24 07:48 Dose: 100 mg Fluticasone Furoate (Fluticasone Furoate 200mcg 14 Puffs/Inhaler) 1 puffs INH DAILY DON[facility]AN Stop: 04/01/24 08:59 Last Admin: 03/02/24 07:47 Dose: 1 puffs Glucagon (Glucagon For Inj 1 Mg Vial) 1 mg SQ UD PRN; Protocol PRN Reason: Hypoglycemia Protocol Stop: 04/01/24 01:10 Glucose (Glucose 40% Gel 15 Gm Tube) 15 - 30 gm PO UD PRN; Protocol PRN Reason: Hypoglycemia Protocol Stop: 04/01/24 01:10 Glucose (Glucose 10 Tab/Tube) 4 - 8 tab PO UD PRN; Protocol PRN Reason: Hypoglycemia Treatment Stop: 04/01/24 01:10 Guaifenesin (Guaifenesin 600 Mg Tabcr) 600 mg PO Q12 [facility] Stop: 04/01/24 08:59 Last Admin: 03/02/24 07:54 Dose: Not Given Hydroxyzine HCl (Hydroxyzine Hcl 10 Mg Tab) 10 mg PO QID PRN PRN Reason: Anxiety Stop: 03/31/24 23:06 Promethazine HCl (Phenergan) 6.25 mg in 50.25 mls @ 201 mls/hr IV Q6H PRN PRN Reason: Nausea And Vomiting Stop: 03/31/24 23:06 Insulin Aspart (Insulin Aspart Per Unit Charge) 0 units SC ACHS [facility] Stop: 04/01/24 01:10 Last Admin: 03/02/24 09:09 Dose: Not Given Isosorbide Mononitrate (Isosorbide [place] Extended Rel 30 Mg Tabcr) 30 mg PO QAM [facility] Stop: 04/01/24 08:59 Last Admin: 03/02/24 07:47 Dose: 30 mg Miscellaneous (Carbohydrates For Hypoglycemia ) 15 - 30 gm PO UD PRN PRN Reason: Hypoglycemia Protocol Stop: 04/01/24 01:10 Prednisone (Prednisone 20 Mg Tab) 20 mg PO DAILY [facility] Stop: 03/06/24 08:59 Last Admin: 03/02/24 07:48 Dose: 20 mg Sodium Chloride (Sodium Chloride 0.65% Na Soln 45 Ml ([place])) 2 sprays NA TID PRN PRN Reason: Nasal Congestion Stop: 04/01/24 03:08 Sotalol HCl (Sotalol Hcl 80 Mg Tab) 80 mg PO BID [facility] Stop: 04/01/24 08:59 Last Admin: 03/02/24 07:47 Dose: 80 mg Tramadol HCl (Tramadol Hcl 50 Mg Tablet) 25 - 50 mg PO Q4H PRN PRN Reason: Pain Stop: 03/31/24 23:06 Umeclidinium/Vilanterol (Umeclidinium/Vilanterol 62.5/25mcg 7 Puffs/Inhaler) 1 puffs INH DAILY [facility] Stop: 04/01/24 08:59 Last Admin: 03/02/24 07:47 Dose: 1 puffs (1) Acute on chronic respiratory failure Respiratory failure complication: hypoxia and hypercapnia Qualified Code(s): J96.21 - Acute and chronic respiratory failure with hypoxia; J96.22 - Acute and chronic respiratory failure with hypercapnia
[2024-03-02] MEDS: ALBUTEROL HFA 8 GM INHALER INH PRN (20:36)
[2024-03-02] MEDS: AZELASTINE HCL 0.1% NASAL 200 SPRAYS/27,400 MCG BTL NAE SCH (21:39)
[2024-03-03 06:48] LABS: Basophils # (auto) 0.01 K/uL (0.00-0.20); Basophils % (auto) 0.1 %; Eosinophils # (auto) 0.04 K/uL (0.00-0.50); Eosinophils % (auto) 0.4 %; Hematocrit (blood only) 31.2 % (37.0-47.0); Hemoglobin 10.4 g/dl (12.0-16.0); Immature Granulocytes # (auto) 0.02 K/uL (0.01-0.20); Immature Granulocytes % (auto) 0.2 %; Lymphocytes # (auto) 1.16 K/uL (1.20-3.40); Lymphocytes % (auto) 10.5 %; Mean Corpuscular Hemoglobin 30.8 pg (25.0-34.0); Mean Corpuscular Hgb Conc 33.3 g/dL (32.0-36.0); Mean Corpuscular Volume 92.3 fL (80.0-100.0); Neutrophils # (auto) 8.83 K/uL (1.40-6.50); Neutrophils % (auto) 79.8 %; Platelet Count 141 K/uL (130-400); RDW Coefficient of Variation 13.8 % (11.5-14.5); RDW Standard Deviation 47.3 fL (36.4-46.3); Red Blood Count 3.38 M/uL (4.20-5.40); White Blood Count 11.06 K/ul (4.8-10.8)
[2024-03-03 07:01] LABS: Calcium 8.6 mg/dl (8.6-10.3); Creatinine Clr Calc Pharmacy 55.6 ml/min; Est GFR (African American) 88.1 ml/min; Phosphorus 2.8 mg/dl (2.5-4.9); Potassium 4.5 mmol/L (3.5-5.1)
--- NOTE | 2024-03-03 12:50 | Hospitalist Progress Note ---
Date of Service March 03, 2024 Assessment & Plan (1) Acute on chronic respiratory failure: Plan: Acute on chronic hypoxemic, hypercapnic respiratory failure Multifactorial: COPD exacerbation CHF exacerbation, history of diastolic dysfunction, right-sided heart failure symptoms Deconditioning Has been requiring 3 L to maintain saturation She feels a little better since admission Seems to be back to her baseline given the respiratory status Has been saturating normally on 3 L now (2) Acute exacerbation of chronic obstructive pulmonary disease (COPD): Plan: Has been getting nebulized bronchodilator, oral prednisone and also oral doxycycline Clinically a little better since admission (3) Fall: Plan: Has had worsening cough with shortness of breath for the last few days Noticed swelling of the legs as well Ended up with a fall with injury to the left leg and subsequent development of hematoma Will get PT and OT evaluation (4) Hematoma and contusion: Plan: Has hematoma involving posterior calf on the left side measuring 5.9 x 3.5 x 7.1 Complicated by use of Coumadin INR of 1.7 Will observe and monitor hemoglobin May need to have an Ortho evaluation if the condition gets worse Hemoglobin is dropped to 10.4 from 12.1 on admission Will monitor CBC tomorrow Hematoma needs to be taken care of by orthopedic surgeon as well (5) Cellulitis of left lower extremity: Plan: Will continue with doxycycline that will also help possible bronchitis (6) Paroxysmal atrial fibrillation: Plan: PAF on Coumadin, INR slightly subtherapeutic valvular heart disease (mild MR, moderate TR) rate remains controlled Coumadin is on hold now (7) SOB (shortness of breath): Plan: Other significant chronic medical conditions are as below: hx CAD status post stent hypertension, slight elevated hyperlipidemia, on statin Rx lung nodule likely malignancy, patient refused workup as per outpatient [employer]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 DVT prophylaxis. SCDs if INR less than 2 while Coumadin hold RE LLE hematoma DNR Patient requests for daughter to be given updates regarding care. Ms. Jo Ann Mohamud, contact #[phone]. (8) Venous insufficiency: Admission and Anticipated Discharge Date Admission Date: March 02, 2024 Subjective 03/02/2024 The patient was seen and examined in medical telemetry unit in presence of the daughter She has had a fall a few days back and injured mainly left leg and has been complaining of more shortness of breath since then Has had cough but denies any fever and or chills has been feeling a little better since admission 03/03/2024 The patient was seen and examined in medical telemetry unit She has been feeling a little better and is out of bed on a chair Complains of pain in the left leg due to hematoma Sizable hematoma remains stable with overlying skin becoming black Review of Systems Review of Systems: all systems reviewed and are unremarkable except as noted below Physical Exam Physical Exam: Lying in bed without any acute distress Constitutional: well developed, well nourished, + ill appearing and average body habitus Eyes: PERRL, conjunctivae normal, anicteric sclerae ENMT: external ear and nose normal, oropharynx normal Neck: trachea midline, no thyromegaly Respiratory: no respiratory distress Auscultation: + diminished lung sounds and + crackles ( bibasilar crackles) Cardiovascular: Rate/Rhythm: regular rate, regular rhythm and + bradycardic Heart Sounds: normal S1 and normal S2; no murmur Extremities: + edema ( 1+ edema bilaterally with chronic skin changes) Gastrointestinal (Abdomen): Inspection/Auscultation: normal bowel sounds; abdomen not distended Percussion/Palpation: abdomen soft; abdomen nontender Musculoskeletal: Right calf hematoma in the mid medial part with localized bruising Neurologic: normal touch/pain/proprioception and moves all extremities; no focal motor deficits Lymphatic: no cervical or axillary lymphadenopathy Results & Data Results & Data Vital Signs (Past 12 Hours) Vital Signs Temp Pulse Pulse Pulse Resp BP BP 03/03/24 11:09 35 C L 60 66 17 130/68 03/03/24 08:38 63 18 03/03/24 07:34 03/03/24 07:16 36.7 C 59 L 16 108/70 03/03/24 07:07 57 L 03/03/24 03:50 36.6 C 66 16 106/94 Pulse Ox O2 Del Method O2 Flow Rate 03/03/24 11:09 100 Nasal Cannula 3 03/03/24 08:38 90 Nasal Cannula 3 03/03/24 07:34 Nasal Cannula 3 03/03/24 07:16 98 Room Air 03/03/24 07:07 03/03/24 03:50 94 Nasal Cannula 3 Laboratory Results Short CBC 03/03/24 Range/Units 05:54 WBC 11.06 H (4.8-10.8) K/ul Hgb 10.4 L (12.0-16.0) g/dl Hct 31.2 L (37.0-47.0) % Plt Count 141 (130-400) K/uL BMP 03/03/24 05:54 Sodium 138 Potassium 4.5 Chloride 97 L Carbon Dioxide 38 H BUN 20 Creatinine 0.74 Glucose 116 H Calcium 8.6 Medications Administered Current Inpatient Medications Albuterol (Albut/Ipratrop 3mg/0.5mg Neb 3 Ml Vial) 3 ml NEB QIDR PRN; Protocol PRN Reason: Shortness Of Breath Or Wheezin Stop: 04/01/24 06:59 Albuterol (Albuterol Hfa 8 Gm Inhaler) 2 puffs INH Q2H PRN PRN Reason: sob/wheeze Stop: 04/01/24 19:59 Last Admin: 03/03/24 08:35 Dose: 2 puffs Azelastine HCl (Azelastine Hcl 0.1% Nasal 200 Sprays/27,400 Mcg Btl) 1 sprays [facility] Stop: 04/01/24 20:59 Last Admin: 03/03/24 08:28 Dose: 1 sprays Dextrose (Dextrose 50% 50 Ml Syringe) 25 - 50 ml IV UD PRN; Protocol PRN Reason: Hypoglycemia Protocol Stop: 04/01/24 01:10 Doxycycline Hyclate (Doxycycline Hyclate 100 Mg Cap) 100 mg PO BID [facility] Stop: 03/09/24 08:59 Last Admin: 03/03/24 08:30 Dose: 100 mg Fluticasone Furoate (Fluticasone Furoate 200mcg 14 Puffs/Inhaler) 1 puffs INH DAILY [facility] Stop: 04/01/24 08:59 Last Admin: 03/03/24 08:29 Dose: 1 puffs Glucagon (Glucagon For Inj 1 Mg Vial) 1 mg SQ UD PRN; Protocol PRN Reason: Hypoglycemia Protocol Stop: 04/01/24 01:10 Glucose (Glucose 40% Gel 15 Gm Tube) 15 - 30 gm PO UD PRN; Protocol PRN Reason: Hypoglycemia Protocol Stop: 04/01/24 01:10 Glucose (Glucose 10 Tab/Tube) 4 - 8 tab PO UD PRN; Protocol PRN Reason: Hypoglycemia Treatment Stop: 04/01/24 01:10 Guaifenesin (Guaifenesin 600 Mg Tabcr) 600 mg PO Q12 [facility] Stop: 04/01/24 08:59 Last Admin: 03/03/24 08:31 Dose: Not Given Hydroxyzine HCl (Hydroxyzine Hcl 10 Mg Tab) 10 mg PO QID PRN PRN Reason: Anxiety Stop: 03/31/24 23:06 Promethazine HCl (Phenergan) 6.25 mg in 50.25 mls @ 201 mls/hr IV Q6H PRN PRN Reason: Nausea And Vomiting Stop: 03/31/24 23:06 Insulin Aspart (Insulin Aspart Per Unit Charge) 0 units SC ACHS [facility] Stop: 04/01/24 01:10 Last Admin: 03/03/24 08:40 Dose: Not Given Isosorbide Mononitrate (Isosorbide Delta Extended Rel 30 Mg Tabcr) 30 mg PO QAM [facility] Stop: 04/01/24 08:59 Last Admin: 03/03/24 08:30 Dose: Not Given Miscellaneous (Carbohydrates For Hypoglycemia ) 15 - 30 gm PO UD PRN PRN Reason: Hypoglycemia Protocol Stop: 04/01/24 01:10 Prednisone (Prednisone 20 Mg Tab) 20 mg PO DAILY [facility] Stop: 03/06/24 08:59 Last Admin: 03/03/24 08:30 Dose: 20 mg Sodium Chloride (Sodium Chloride 0.65% Na Soln 45 Ml ([place])) 2 sprays NA TID PRN PRN Reason: Nasal Congestion Stop: 04/01/24 03:08 Sotalol HCl (Sotalol Hcl 80 Mg Tab) 80 mg PO BID [facility] Stop: 04/01/24 08:59 Last Admin: 03/03/24 08:30 Dose: 80 mg Tramadol HCl (Tramadol Hcl 50 Mg Tablet) 25 - 50 mg PO Q4H PRN PRN Reason: Pain Stop: 03/31/24 23:06 Umeclidinium/Vilanterol (Umeclidinium/Vilanterol 62.5/25mcg 7 Puffs/Inhaler) 1 puffs INH DAILY [facility] Stop: 04/01/24 08:59 Last Admin: 03/03/24 08:29 Dose: 1 puffs (1) Acute on chronic respiratory failure Respiratory failure complication: hypoxia and hypercapnia Qualified Code(s): J96.21 - Acute and chronic respiratory failure with hypoxia; J96.22 - Acute and chronic respiratory failure with hypercapnia
[2024-03-03] MEDS: ACETAMINOPHEN SUSP 325 MG/10.15 ML UDC PO PRN (14:25)
[2024-03-03 20:21] VITALS: RESP 20
[2024-03-04 07:34] LABS: Basophils # (auto) 0.01 K/uL (0.00-0.20); Basophils % (auto) 0.1 %; Eosinophils # (auto) 0.07 K/uL (0.00-0.50); Eosinophils % (auto) 0.8 %; Hemoglobin 10.5 g/dl (12.0-16.0); Immature Granulocytes # (auto) 0.04 K/uL (0.01-0.20); Immature Granulocytes % (auto) 0.5 %; Lymphocytes # (auto) 1.58 K/uL (1.20-3.40); Lymphocytes % (auto) 18.1 %; Mean Corpuscular Hemoglobin 30.8 pg (25.0-34.0); Mean Corpuscular Hgb Conc 31.8 g/dL (32.0-36.0); Mean Corpuscular Volume 96.8 fL (80.0-100.0); Mean Platelet Volume 11.6 fL (9.4-12.4); Monocytes # (auto) 0.84 K/uL (0.11-0.59); Monocytes % (auto) 9.6 %; Neutrophils % (auto) 70.9 %; Platelet Count 142 K/uL (130-400); RDW Coefficient of Variation 14.3 % (11.5-14.5); RDW Standard Deviation 50.2 fL (36.4-46.3); Red Blood Count 3.41 M/uL (4.20-5.40); White Blood Count 8.74 K/ul (4.8-10.8)
--- NOTE | 2024-03-04 13:10 | Hospitalist Progress Note ---
Date of Service March 04, 2024 Assessment & Plan (1) Acute on chronic respiratory failure: Plan: Acute on chronic hypoxemic, hypercapnic respiratory failure Multifactorial: COPD exacerbation Acute on chronic diastolic heart failure Deconditioning Has been requiring 3 L to maintain saturation She feels a little better since admission Seems to be back to her baseline given the respiratory status Has been saturating normally on 3 L now Feels better and requiring 2 L of oxygen to maintain saturation seems to be at her baseline (2) Acute exacerbation of chronic obstructive pulmonary disease (COPD): Plan: Has been getting nebulized bronchodilator, oral prednisone and also oral doxycycline Clinically a little better since admission (3) Fall: Plan: Has had worsening cough with shortness of breath for the last few days Noticed swelling of the legs as well Ended up with a fall with injury to the left leg and subsequent development of hematoma Will get PT and OT evaluation (4) Hematoma and contusion: Plan: Has hematoma involving posterior calf on the left side measuring 5.9 x 3.5 x 7.1 Complicated by use of Coumadin INR of 1.7 Will observe and monitor hemoglobin May need to have an Ortho evaluation if the condition gets worse Hemoglobin is dropped to 10.4 from 12.1 on admission Will monitor CBC tomorrow Hematoma needs to be taken care of by orthopedic surgeon as well Complains of pain at the site of hematoma hematoma size has not increased Skin over the hematoma has dusky discoloration and it may rupture Will get Ortho evaluation to see if I&D is going to be helpful (5) Cellulitis of left lower extremity: Plan: Will continue with doxycycline that will also help possible bronchitis (6) Paroxysmal atrial fibrillation: Plan: PAF on Coumadin, INR slightly subtherapeutic valvular heart disease (mild MR, moderate TR) rate remains controlled Coumadin is on hold now (7) SOB (shortness of breath): Plan: Other significant chronic medical conditions are as below: hx CAD status post stent hypertension, slight elevated hyperlipidemia, on statin Rx lung nodule likely malignancy, patient 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 DVT prophylaxis. SCDs if INR less than 2 while Coumadin hold RE LLE hematoma DNR Patient requests for daughter to be given updates regarding care. Ms. Jo Ann Mohamud, contact #[phone]. (8) Venous insufficiency: Admission and Anticipated Discharge Date Admission Date: March 02, 2024 Subjective 03/02/2024 The patient was seen and examined in medical telemetry unit in presence of the daughter She has had a fall a few days back and injured mainly left leg and has been complaining of more shortness of breath since then Has had cough but denies any fever and or chills has been feeling a little better since admission 03/03/2024 The patient was seen and examined in medical telemetry unit She has been feeling a little better and is out of bed on a chair Complains of pain in the left leg due to hematoma Sizable hematoma remains stable with overlying skin becoming black 03/04/2024 The patient was seen and examined in medical telemetry unit She has been a little worse today with increasing shortness of breath Denies any more leg pain Hematoma remains stable Review of Systems Review of Systems: all systems reviewed and are unremarkable except as noted below Physical Exam Physical Exam: Lying in bed without any acute distress Constitutional: well developed, well nourished, + ill appearing and average body habitus Eyes: PERRL, conjunctivae normal, anicteric sclerae ENMT: external ear and nose normal, oropharynx normal Neck: trachea midline, no thyromegaly Respiratory: no respiratory distress Auscultation: + diminished lung sounds and + crackles ( bibasilar crackles) Cardiovascular: Rate/Rhythm: regular rate, regular rhythm and + bradycardic Heart Sounds: normal S1 and normal S2; no murmur Extremities: + edema ( 1+ edema bilaterally with chronic skin changes) Gastrointestinal (Abdomen): Inspection/Auscultation: normal bowel sounds; abdomen not distended Percussion/Palpation: abdomen soft; abdomen nontender Neurologic: normal touch/pain/proprioception and moves all extremities; no focal motor deficits Lymphatic: no cervical or axillary lymphadenopathy Results & Data Results & Data Vital Signs (Past 12 Hours) Vital Signs Temp Pulse Resp BP Pulse Ox O2 Del Method O2 Flow Rate 03/04/24 11:17 36.5 C 57 L 20 103/58 L 96 Nasal Cannula 2 03/04/24 08:36 36.6 C 54 L 20 92/46 L 98 Nasal Cannula 3 03/04/24 08:00 Nasal Cannula 3 03/04/24 04:00 36.8 C 54 L 20 106/63 97 Nasal Cannula 3 Laboratory Results Short CBC 03/04/24 Range/Units 07:04 WBC 8.74 (4.8-10.8) K/ul Hgb 10.5 L (12.0-16.0) g/dl Hct 33.0 L (37.0-47.0) % Plt Count 142 (130-400) K/uL Medications Administered Current Inpatient Medications Acetaminophen (Acetaminophen Susp 325 Mg/10.15 Ml Udc) 650 mg PO Q6H PRN PRN Reason: Pain Stop: 04/02/24 14:08 Last Admin: 03/03/24 14:25 Dose: 650 mg Albuterol (Albut/Ipratrop 3mg/0.5mg Neb 3 Ml Vial) 3 ml NEB QIDR PRN; Protocol PRN Reason: Shortness Of Breath Or Wheezin Stop: 04/01/24 06:59 Albuterol (Albuterol Hfa 8 Gm Inhaler) 2 puffs INH Q2H PRN PRN Reason: sob/wheeze Stop: 04/01/24 19:59 Last Admin: 03/04/24 06:06 Dose: 2 puffs Azelastine HCl (Azelastine Hcl 0.1% Nasal 200 Sprays/27,400 Mcg Btl) 1 sprays [facility] Stop: 04/01/24 20:59 Last Admin: 03/04/24 09:43 Dose: 1 sprays Dextrose (Dextrose 50% 50 Ml Syringe) 25 - 50 ml IV UD PRN; Protocol PRN Reason: Hypoglycemia Protocol Stop: 04/01/24 01:10 Doxycycline Hyclate (Doxycycline Hyclate 100 Mg Cap) 100 mg PO BID [facility] Stop: 03/09/24 08:59 Last Admin: 03/04/24 09:42 Dose: 100 mg Fluticasone Furoate (Fluticasone Furoate 200mcg 14 Puffs/Inhaler) 1 puffs INH DAILY [facility] Stop: 04/01/24 08:59 Last Admin: 03/04/24 09:44 Dose: 1 puffs Glucagon (Glucagon For Inj 1 Mg Vial) 1 mg SQ UD PRN; Protocol PRN Reason: Hypoglycemia Protocol Stop: 04/01/24 01:10 Glucose (Glucose 40% Gel 15 Gm Tube) 15 - 30 gm PO UD PRN; Protocol PRN Reason: Hypoglycemia Protocol Stop: 04/01/24 01:10 Glucose (Glucose 10 Tab/Tube) 4 - 8 tab PO UD PRN; Protocol PRN Reason: Hypoglycemia Treatment Stop: 04/01/24 01:10 Guaifenesin (Guaifenesin 600 Mg Tabcr) 600 mg PO Q12 [facility] Stop: 04/01/24 08:59 Last Admin: 03/04/24 09:44 Dose: Not Given Hydroxyzine HCl (Hydroxyzine Hcl 10 Mg Tab) 10 mg PO QID PRN PRN Reason: Anxiety Stop: 03/31/24 23:06 Promethazine HCl (Phenergan) 6.25 mg in 50.25 mls @ 201 mls/hr IV Q6H PRN PRN Reason: Nausea And Vomiting Stop: 03/31/24 23:06 Insulin Aspart (Insulin Aspart Per Unit Charge) 0 units SC ACHS [facility] Stop: 04/01/24 01:10 Last Admin: 03/04/24 09:45 Dose: Not Given Isosorbide Mononitrate (Isosorbide [place] Extended Rel 30 Mg Tabcr) 30 mg PO QAM [facility] Stop: 04/01/24 08:59 Last Admin: 03/04/24 09:43 Dose: Not Given Miscellaneous (Carbohydrates For Hypoglycemia ) 15 - 30 gm PO UD PRN PRN Reason: Hypoglycemia Protocol Stop: 04/01/24 01:10 Prednisone (Prednisone 20 Mg Tab) 20 mg PO DAILY [facility] Stop: 03/06/24 08:59 Last Admin: 03/04/24 09:44 Dose: 20 mg Sodium Chloride (Sodium Chloride 0.65% Na Soln 45 Ml ([place])) 2 sprays NA TID PRN PRN Reason: Nasal Congestion Stop: 04/01/24 03:08 Sotalol HCl (Sotalol Hcl 80 Mg Tab) 80 mg PO BID [facility] Stop: 04/01/24 08:59 Last Admin: 03/04/24 09:42 Dose: 80 mg Tramadol HCl (Tramadol Hcl 50 Mg Tablet) 25 - 50 mg PO Q4H PRN PRN Reason: Pain Stop: 03/31/24 23:06 Umeclidinium/Vilanterol (Umeclidinium/Vilanterol 62.5/25mcg 7 Puffs/Inhaler) 1 puffs INH DAILY [facility] Stop: 04/01/24 08:59 Last Admin: 03/04/24 09:43 Dose: 1 puffs (1) Acute on chronic respiratory failure Respiratory failure complication: hypoxia and hypercapnia Qualified Code(s): J96.21 - Acute and chronic respiratory failure with hypoxia; J96.22 - Acute and chronic respiratory failure with hypercapnia
--- NOTE | 2024-03-04 16:04 | Orthopedic Consultation ---
Date of Service March 04, 2024 Assessment & Plan (1) Hematoma of left lower extremity: She was seen and examined by Dr. Cowart. She has a mass in the posterior calf, which is extracompartmental, consistent with hematoma, and no infection. Treatment options discussed including continued observation vs aspiration of the hematoma. She is not really in pain and does not want to proceed with aspiration. This should resolve over time and may take 4-6 weeks, or longer. No further intervention at this time. If she changes her mind and decides to have this aspirated please reach out again. Otherwise, she can follow up as an outpatient as needed. History of Present Illness Reason for Consultation: . Requesting Physician: . Attending Physician: Temo Hatch MD .Lila is a 79 year old patient admitted 3 days ago and we are being asked to see her for a left calf hematoma. This was a consult for [facility] but apparently they do not have someone available to see her. She says she had swelling in both legs several weeks ago, but then swelling seemed to localize to the left calf area. It is not particularly painful except when touched. She is on coumadin, INR on 03/02 was 1.7. She has had hematomas in the past. Allergies Allergy/AdvReac Type Severity Reaction Status Date / Time dog dander Allergy Severe congestion, Verified 02/06/24 16:24 SOB valsartan Allergy Severe Edema Verified 02/06/24 16:24 face/lips/tongue. levofloxacin [From Levaquin] Allergy Intermediate ITCHY Verified 02/06/24 16:24 HIVES ON TRUNK AND LEGS nickel Allergy Mild Rash. Verified 02/06/24 16:24 NAI Inhibitors AdvReac Intermediate Cough. Verified 02/06/24 16:24 influenza virus vaccine ts AdvReac Intermediate SINUS Verified 02/06/24 16:24 [id number] (36 mos,up) PRESSURE/DRAINAGE [From Fluarix] Home Medications Medication Instructions Recorded Confirmed Type nitroglycerin 0.4 mg sublingual 0.4 mg sublingual DIRECTED PRN 04/19/19 03/01/24 History tablet Chest Pain sotalol 80 mg tablet 80 mg PO BID 04/19/19 03/01/24 History aspirin 81 mg tablet,delayed 81 mg PO QAM 01/17/23 03/01/24 History release azelastine 137 mcg (0.1 %) nasal 1 spray intranasal [facility] 01/17/23 02/06/24 History spray spironolactone 25 mg tablet 25 mg PO QAM 01/17/23 03/01/24 History warfarin 2.5 mg tablet 2.5 mg PO DAILY 01/17/23 03/01/24 History albuterol sulfate 2.5 mg/3 mL 2.5 mg inhalation DIRECTED PRN 06/26/23 03/01/24 History (0.083 %) solution for nebulization Shortness Of Breath Or Wheezing isosorbide mononitrate 30 mg 30 mg PO QAM #30 tabs 06/27/23 03/01/24 Rx tablet,extended release 24 hr albuterol sulfate 90 mcg/actuation 2 inh inhalation Q4H PRN Shortness 01/02/24 03/01/24 History aerosol inhaler Of Breath Or Wheezing budesonide 160 mcg-glycopyr 9 2 inh inhalation [facility] #1 inhaler 02/09/24 03/01/24 Rx mcg-formot 4.8 mcg/actuation HFA inhaler ([employer]) furosemide 20 mg tablet 40 mg (2 x 20 mg) PO QAM #60 tabs 02/09/24 03/01/24 Rx sulfamethoxazole 800 2 tab PO DAILY 03/01/24 03/01/24 History mg-trimethoprim 160 mg tablet Past Med/Surg History Problem List Anticoagulated (Acute) Fall (Acute) Cellulitis of right leg (Acute) Hematoma of left lower extremity (Acute) Hematoma and contusion Cellulitis of left lower extremity Cor pulmonale Pulmonary hypertension Bilateral lower leg cellulitis Bilateral lower extremity edema Left upper lobe pulmonary nodule Acute on chronic respiratory failure Cellulitis (Acute) Fluid overload (Acute) Anticoagulated on Coumadin (Acute) Pedal edema (Acute) SOB (shortness of breath) (Acute) COPD exacerbation (Acute) Hypoxia (Acute) NSTEMI (non-ST elevated myocardial infarction) Elevated brain natriuretic peptide (BNP) level (Acute) Elevated troponin (Acute) Substernal chest pain (Acute) Chest pain Acute hypoxemic respiratory failure Dyspnea (Acute) Hypoxia (Acute) Acute exacerbation of chronic obstructive pulmonary disease (COPD) (Acute) Venous insufficiency (Chronic) COPD (chronic obstructive pulmonary disease) (Chronic) Prediabetes (Chronic) Hyperlipidemia (Chronic) Hypotension (Acute) Tobacco abuse (Chronic) S/P right coronary artery (RCA) stent placement (Chronic) CAD (coronary artery disease), [place] coronary artery (Chronic) Emphysema of lung (Chronic) Hypertension (Chronic) Atrial fibrillation with rapid ventricular response (Acute) Medical History Paroxysmal atrial fibrillation Surgical History H/O: hysterectomy S/P appendectomy Family History Other Colon cancer Social History Smoking Status: Light tobacco smoker Tobacco Type: Cigarettes Cigarettes Per Day: smokes occasionally, some days doesn't smoke, other days smokes 3-5 cigs; Second Hand Exposure: No; Do You Dip or Chew Tobacco: No; Tobacco Cessation Education Requested by Patient: No Hx Alcohol Use: Yes Alcohol type: wine Alcohol Intake Frequency Comment: 1-2 glasses of wine 3-5 days per week Hx Substance Use: No Preferred Language: Stateless Communication Ability: Effective Technology Education Instructor Required: No Beliefs That Will Affect Care: None Current Living Situation: Alone Other Information That Helps Us Care for You: No Feels Safe at Home: Yes Safety Concerns: Feels Safe At This Time Assistive Devices: Oxygen - Continuous Review of Systems All systems reviewed & are unremarkable except as noted in HPI & below. Physical Exam .alert and oriented. NAD. Sitting in bedside chair. Left leg: Obvious swelling in the posterior medial calf region. Tender to palpation. She does have some stasis changes distally. She is able to dorsiflex and plantarflex, move toes appropriately without pain. Sensation intact to touch. Results & Data Results & Data Laboratory Results . Diagnostic Findings .ct scan reviewed/ultrasound reports reviewed. She has a fluid collection in the posterior medial calf area, that is subcutaneous/extracompartmental. PG Care Time/CCT Total # of Minutes Spent Total Time Spent with Patient: Total time spent is greater than 50% in coordination of care (as documented) at patient's floor/unit and/or counseling patient: Coding Level of Care Code 54712 IN/OBS CONSULT LVL 3,45M Diagnoses Hematoma of left lower extremity S80.12XA
[2024-03-05 06:24] LABS: Basophils # (auto) 0.01 K/uL (0.00-0.20); Basophils % (auto) 0.1 %; Eosinophils # (auto) 0.03 K/uL (0.00-0.50); Eosinophils % (auto) 0.3 %; Hematocrit (blood only) 33.1 % (37.0-47.0); Hemoglobin 10.7 g/dl (12.0-16.0); Immature Granulocytes # (auto) 0.04 K/uL (0.01-0.20); Immature Granulocytes % (auto) 0.4 %; Lymphocytes # (auto) 1.79 K/uL (1.20-3.40); Lymphocytes % (auto) 18.1 %; Mean Corpuscular Hemoglobin 30.2 pg (25.0-34.0); Mean Corpuscular Hgb Conc 32.3 g/dL (32.0-36.0); Mean Corpuscular Volume 93.5 fL (80.0-100.0); Mean Platelet Volume 11.8 fL (9.4-12.4); Monocytes # (auto) 0.84 K/uL (0.11-0.59); Monocytes % (auto) 8.5 %; Neutrophils # (auto) 7.19 K/uL (1.40-6.50); Neutrophils % (auto) 72.6 %; Platelet Count 148 K/uL (130-400); RDW Coefficient of Variation 13.9 % (11.5-14.5); RDW Standard Deviation 47.8 fL (36.4-46.3); Red Blood Count 3.54 M/uL (4.20-5.40)
[2024-03-05 06:36] LABS: Calcium 8.6 mg/dl (8.6-10.3); Potassium 4.4 mmol/L (3.5-5.1)
[2024-03-05 06:42] LABS: BUN Creatinine Ratio 42.6 (10-20); Creatinine Clr Calc Pharmacy 67.7 ml/min; Est GFR (African American) 98.5 ml/min
[2024-03-05 08:16] VITALS: TEMP 98.2
--- NOTE | 2024-03-05 11:17 | Hospitalist Progress Note ---
Date of Service March 05, 2024 Assessment & Plan (1) Acute on chronic respiratory failure: Plan: Acute on chronic hypoxemic, hypercapnic respiratory failure Multifactorial: COPD exacerbation Acute on chronic diastolic heart failure Deconditioning Has been requiring 3 L to maintain saturation She feels a little better since admission Seems to be back to her baseline given the respiratory status Has been saturating normally on 3 L now Feels better and requiring 2 L of oxygen to maintain saturation seems to be at her baseline Minimal shortness of breath at rest and she is at her baseline with 2 L of oxygen via nasal cannula to maintain saturation She will be discharged home this afternoon (2) Acute exacerbation of chronic obstructive pulmonary disease (COPD): Plan: Has been getting nebulized bronchodilator, oral prednisone and also oral doxycycline Clinically a little better since admission (3) Fall: Plan: Has had worsening cough with shortness of breath for the last few days Noticed swelling of the legs as well Ended up with a fall with injury to the left leg and subsequent development of hematoma Will get PT and OT evaluation PT recommended rehab but she refused to go to rehab and she will be discharged home this afternoon with home health and PT OT (4) Hematoma and contusion: Plan: Has hematoma involving posterior calf on the left side measuring 5.9 x 3.5 x 7.1 Complicated by use of Coumadin INR of 1.7 Will observe and monitor hemoglobin May need to have an Ortho evaluation if the condition gets worse Hemoglobin is dropped to 10.4 from 12.1 on admission Will monitor CBC tomorrow Hematoma needs to be taken care of by orthopedic surgeon as well Complains of pain at the site of hematoma hematoma size has not increased Skin over the hematoma has dusky discoloration and it may rupture Will get Ortho evaluation to see if I&D is going to be helpful Appreciate Ortho input and recommended not to have any I&D for the hematoma It will take about 4 to 6 weeks before the hematoma gets absorbed (5) Cellulitis of left lower extremity: Plan: Will continue with doxycycline that will also help possible bronchitis (6) Paroxysmal atrial fibrillation: Plan: PAF on Coumadin, INR slightly subtherapeutic valvular heart disease (mild MR, moderate TR) rate remains controlled Coumadin is on hold now (7) SOB (shortness of breath): Plan: Other significant chronic medical conditions are as below: hx CAD status post stent hypertension, slight elevated hyperlipidemia, on statin Rx lung nodule likely malignancy, patient refused workup as per outpatient [facility] [place]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 DVT prophylaxis. SCDs if INR less than 2 while Coumadin hold RE LLE hematoma DNR Patient requests for daughter to be given updates regarding care. Ms. Jo Ann Mohamud, contact #[phone]. Discussed with the daughter and she will be discharged home this afternoon (8) Venous insufficiency: Admission and Anticipated Discharge Date Admission Date: March 02, 2024 Subjective 03/02/2024 The patient was seen and examined in medical telemetry unit in presence of the daughter She has had a fall a few days back and injured mainly left leg and has been complaining of more shortness of breath since then Has had cough but denies any fever and or chills has been feeling a little better since admission 03/03/2024 The patient was seen and examined in medical telemetry unit She has been feeling a little better and is out of bed on a chair Complains of pain in the left leg due to hematoma Sizable hematoma remains stable with overlying skin becoming black 03/04/2024 The patient was seen and examined in medical telemetry unit She has been a little worse today with increasing shortness of breath Denies any more leg pain Hematoma remains stable 03/05/2024 The patient was seen and examined in medical telemetry unit She has been stable and has minimal shortness of breath at rest Denies any other significant symptoms She has had PT evaluation and recommended rehab but she is adamant that she will go home this afternoon she will be discharged this afternoon Review of Systems Review of Systems: all systems reviewed and are unremarkable except as noted below Physical Exam Physical Exam: Lying in bed without any acute distress Constitutional: well developed, well nourished, + ill appearing and average body habitus Eyes: PERRL, conjunctivae normal, anicteric sclerae ENMT: external ear and nose normal, oropharynx normal Neck: trachea midline, no thyromegaly Respiratory: no respiratory distress Auscultation: + diminished lung sounds and + crackles ( bibasilar crackles) Cardiovascular: Rate/Rhythm: regular rate, regular rhythm and + bradycardic Heart Sounds: normal S1 and normal S2; no murmur Extremities: + edema ( 1+ edema bilaterally with chronic skin changes) Gastrointestinal (Abdomen): Inspection/Auscultation: normal bowel sounds; abdomen not distended Percussion/Palpation: abdomen soft; abdomen nontender Neurologic: normal touch/pain/proprioception and moves all extremities; no focal motor deficits Lymphatic: no cervical or axillary lymphadenopathy Results & Data Results & Data Vital Signs (Past 12 Hours) Vital Signs Temp Pulse Pulse Resp BP Pulse Ox O2 Del Method 03/05/24 08:15 36.8 C 74 20 94/50 L 94 Nasal Cannula 03/05/24 08:06 54 L 03/05/24 04:14 37.0 C 56 L 20 119/59 L 97 Nasal Cannula 03/04/24 23:47 36.7 C 58 L 20 124/68 98 Nasal Cannula O2 Flow Rate 03/05/24 08:15 2 03/05/24 08:06 03/05/24 04:14 3 03/04/24 23:47 3 Laboratory Results Short CBC 03/05/24 Range/Units 05:15 WBC 9.90 (4.8-10.8) K/ul Hgb 10.7 L (12.0-16.0) g/dl Hct 33.1 L (37.0-47.0) % Plt Count 148 (130-400) K/uL BMP 03/05/24 05:15 Sodium 138 Potassium 4.4 Chloride 100 Carbon Dioxide 34 H BUN 26 H Creatinine 0.61 Glucose 91 Calcium 8.6 Medications Administered Current Inpatient Medications Acetaminophen (Acetaminophen Susp 325 Mg/10.15 Ml Udc) 650 mg PO Q6H PRN PRN Reason: Pain Stop: 04/02/24 14:08 Last Admin: 03/03/24 14:25 Dose: 650 mg Albuterol (Albut/Ipratrop 3mg/0.5mg Neb 3 Ml Vial) 3 ml NEB QIDR PRN; Protocol PRN Reason: Shortness Of Breath Or Wheezin Stop: 04/01/24 06:59 Albuterol (Albuterol Hfa 8 Gm Inhaler) 2 puffs INH Q2H PRN PRN Reason: sob/wheeze Stop: 04/01/24 19:59 Last Admin: 03/05/24 09:09 Dose: 2 puffs Azelastine HCl (Azelastine Hcl 0.1% Nasal 200 Sprays/27,400 Mcg Btl) 1 sprays [facility] Stop: 04/01/24 20:59 Last Admin: 03/05/24 09:11 Dose: 1 sprays Dextrose (Dextrose 50% 50 Ml Syringe) 25 - 50 ml IV UD PRN; Protocol PRN Reason: Hypoglycemia Protocol Stop: 04/01/24 01:10 Doxycycline Hyclate (Doxycycline Hyclate 100 Mg Cap) 100 mg PO BID [facility] Stop: 03/09/24 08:59 Last Admin: 03/05/24 09:10 Dose: 100 mg Fluticasone Furoate (Fluticasone Furoate 200mcg 14 Puffs/Inhaler) 1 puffs INH DAILY [facility] Stop: 04/01/24 08:59 Last Admin: 03/05/24 09:12 Dose: 1 puffs Glucagon (Glucagon For Inj 1 Mg Vial) 1 mg SQ UD PRN; Protocol PRN Reason: Hypoglycemia Protocol Stop: 04/01/24 01:10 Glucose (Glucose 40% Gel 15 Gm Tube) 15 - 30 gm PO UD PRN; Protocol PRN Reason: Hypoglycemia Protocol Stop: 04/01/24 01:10 Glucose (Glucose 10 Tab/Tube) 4 - 8 tab PO UD PRN; Protocol PRN Reason: Hypoglycemia Treatment Stop: 04/01/24 01:10 Guaifenesin (Guaifenesin 600 Mg Tabcr) 600 mg PO Q12 DONOVAN Stop: 04/01/24 08:59 Last Admin: 03/05/24 09:10 Dose: Not Given Hydroxyzine HCl (Hydroxyzine Hcl 10 Mg Tab) 10 mg PO QID PRN PRN Reason: Anxiety Stop: 03/31/24 23:06 Promethazine HCl (Phenergan) 6.25 mg in 50.25 mls @ 201 mls/hr IV Q6H PRN PRN Reason: Nausea And Vomiting Stop: 03/31/24 23:06 Insulin Aspart (Insulin Aspart Per Unit Charge) 0 units SC ACHS [facility] Stop: 04/01/24 01:10 Last Admin: 03/05/24 09:10 Dose: Not Given Isosorbide Mononitrate (Isosorbide Daniels Extended Rel 30 Mg Tabcr) 30 mg PO QAM [facility] Stop: 04/01/24 08:59 Last Admin: 03/05/24 09:10 Dose: Not Given Miscellaneous (Carbohydrates For Hypoglycemia ) 15 - 30 gm PO UD PRN PRN Reason: Hypoglycemia Protocol Stop: 04/01/24 01:10 Prednisone (Prednisone 20 Mg Tab) 20 mg PO DAILY [facility] Stop: 03/06/24 08:59 Last Admin: 03/05/24 09:10 Dose: 20 mg Sodium Chloride (Sodium Chloride 0.65% Na Soln 45 Ml ([place])) 2 sprays NA TID PRN PRN Reason: Nasal Congestion Stop: 04/01/24 03:08 Sotalol HCl (Sotalol Hcl 80 Mg Tab) 80 mg PO BID [facility] Stop: 04/01/24 08:59 Last Admin: 03/05/24 09:11 Dose: 80 mg Tramadol HCl (Tramadol Hcl 50 Mg Tablet) 25 - 50 mg PO Q4H PRN PRN Reason: Pain Stop: 03/31/24 23:06 Umeclidinium/Vilanterol (Umeclidinium/Vilanterol 62.5/25mcg 7 Puffs/Inhaler) 1 puffs INH DAILY [facility] Stop: 04/01/24 08:59 Last Admin: 03/05/24 09:09 Dose: 1 puffs (1) Acute on chronic respiratory failure Respiratory failure complication: hypoxia and hypercapnia Qualified Code(s): J96.21 - Acute and chronic respiratory failure with hypoxia; J96.22 - Acute and chronic respiratory failure with hypercapnia
[2024-03-05 11:30] VITALS: O2SAT 100
[2024-03-05 15:17] VITALS: BP 93/53; PULSE 54
--- NOTE | 2024-03-05 18:09 | Discharge Summary ---
Date of Service March 05, 2024 Admission HPI Per Admitting Provider History obtained from patient and records. Medical history significant for chronic diastolic heart failure (EF 60 to 65%, TTE 2023), CAD status post stent, PAF on Coumadin, valvular heart disease (mild MR, moderate TR), hypertension, hyperlipidemia, COPD, lung nodule, pulmonary hypertension, prediabetes, bladder cancer status post surgery, ongoing tobacco abuse. Recent confinement 3 weeks ago for respiratory failure secondary to COPD exacerbation. Moderate pulmonary hypertension on updated echo. Patient discharged on higher dose of Lasix for leg swelling. Patient refused PT and OT evaluations during confinement. Patient discharged on home O2. Patient deemed high risk for readmission as per discharge note. Patient not fully well upon returning home. Persistent sinus drainage. Still feeling weak. Patient had worsening sticky cough the last few days. Unable to expectorate. Denies aspiration. Both legs more swollen than usual. Left leg redder than usual. Outpatient course of Bactrim prescribed for possible cellulitis. Patient noncompliant with home health recommendations. Subsequent fall today with some trauma on the left calf. Transient hypoxemia O2 sats of 80s noted at the ER. 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 Admission Exam Per Admitting Provider Physical Exam: GENERAL: Slightly uncomfortable, slightly hard of hearing, audible wheezing, episodic tachypnea SKIN: Normal color, warm HEENT: [place] palpebral conjunctivae, no ptosis, dry buccal mucosa, nasal cannula in place NECK : Supple, no tenderness CHEST : Decreased breath sounds, scattered expiratory wheezes, no tenderness HEART : RRR, no obvious murmurs ABDOMEN: Some distention, nontender EXTREMITIES : Bilateral LE swelling, painful hematoma left calf, no other conspicuous deformities noted NEUROLOGIC : Coherent, no facial asymmetry, slightly hard of hearing, no other gross focality Principal Diagnosis acute on chronic respiratory failure, recurrent fall, left calf hematoma, paroxysmal atrial fibrillation off Coumadin now Discharge Exam Lying in bed without any acute distress Constitutional well developed, well nourished, + ill appearing and average body habitus Eyes PERRL, conjunctivae normal, anicteric sclerae ENMT external ear and nose normal, oropharynx normal Neck trachea midline, no thyromegaly Respiratory no respiratory distress Auscultation: + diminished lung sounds and + crackles ( bibasilar crackles) Cardiovascular Rate/Rhythm: regular rate, regular rhythm and + bradycardic Heart Sounds: normal S1 and normal S2; no murmur Extremities: + edema ( 1+ edema bilaterally with chronic skin changes) Gastrointestinal (Abdomen) Inspection/Auscultation: normal bowel sounds; abdomen not distended Percussion/Palpation: abdomen soft; abdomen nontender Neurologic normal touch/pain/proprioception and moves all extremities; no focal motor deficits Lymphatic no cervical or axillary lymphadenopathy Discharge Data Allergies Allergy/AdvReac Type Severity Reaction Status Date / Time dog dander Allergy Severe congestion, Verified 02/06/24 16:24 SOB valsartan Allergy Severe Edema Verified 02/06/24 16:24 face/lips/tongue. levofloxacin [From Levaquin] Allergy Intermediate ITCHY Verified 02/06/24 16:24 HIVES ON TRUNK AND LEGS nickel Allergy Mild Rash. Verified 02/06/24 16:24 NAI Inhibitors AdvReac Intermediate Cough. Verified 02/06/24 16:24 influenza virus vaccine ts AdvReac Intermediate SINUS Verified 02/06/24 16:24 [id number] (36 mos,up) PRESSURE/DRAINAGE [From Fluarix] Consultations 03/01/24 22:10 ED Decision to Admit Stat 03/04/24 13:06 Consult Orthopedic Surgery Routine Ordered Studies 03/01/24 20:07 CT head/brain wo con Stat CT lumbar spine wo con Stat 03/01/24 23:09 CT angio chest PE protocol Stat CT leg [CT tib/fib LT w con] Stat 03/01/24 23:16 US venous doppler LE Stat Hospital Course (1) Acute on chronic respiratory failure: Acute on chronic hypoxemic, hypercapnic respiratory failure Multifactorial: COPD exacerbation Acute on chronic diastolic heart failure Deconditioning Has been requiring 3 L to maintain saturation She feels a little better since admission Seems to be back to her baseline given the respiratory status Has been saturating normally on 3 L now Feels better and requiring 2 L of oxygen to maintain saturation seems to be at her baseline Minimal shortness of breath at rest and she is at her baseline with 2 L of oxygen via nasal cannula to maintain saturation She will be discharged home this afternoon (2) Acute exacerbation of chronic obstructive pulmonary disease (COPD): Has been getting nebulized bronchodilator, oral prednisone and also oral doxycycline Clinically a little better since admission (3) Fall: Has had worsening cough with shortness of breath for the last few days Noticed swelling of the legs as well Ended up with a fall with injury to the left leg and subsequent development of hematoma Will get PT and OT evaluation PT recommended rehab but she refused to go to rehab and she will be discharged home this afternoon with home health and PT OT (4) Hematoma and contusion: Has hematoma involving posterior calf on the left side measuring 5.9 x 3.5 x 7.1 Complicated by use of Coumadin INR of 1.7 Will observe and monitor hemoglobin May need to have an Ortho evaluation if the condition gets worse Hemoglobin is dropped to 10.4 from 12.1 on admission Will monitor CBC tomorrow Hematoma needs to be taken care of by orthopedic surgeon as well Complains of pain at the site of hematoma hematoma size has not increased Skin over the hematoma has dusky discoloration and it may rupture Will get Ortho evaluation to see if I&D is going to be helpful Appreciate Ortho input and recommended not to have any I&D for the hematoma It will take about 4 to 6 weeks before the hematoma gets absorbed (5) Cellulitis of left lower extremity: Will continue with doxycycline that will also help possible bronchitis (6) Paroxysmal atrial fibrillation: PAF on Coumadin, INR slightly subtherapeutic valvular heart disease (mild MR, moderate TR) rate remains controlled Coumadin is on hold now (7) SOB (shortness of breath): Other significant chronic medical conditions are as below: hx CAD status post stent hypertension, slight elevated hyperlipidemia, on statin Rx lung nodule likely malignancy, patient refused workup as per outpatient [employer] 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 DVT prophylaxis. SCDs if INR less than 2 while Coumadin hold RE LLE hematoma DNR Patient requests for daughter to be given updates regarding care. Mihai Jo Ann L[place], contact #[phone]. Discussed with the daughter and she will be discharged home this afternoon (8) Venous insufficiency: Total Time Total Time Spent Total Time Spent (In Minutes): 45 minutes Discharge Plan Discharge Items Patient Disposition: Home - Home Health Services Reason For Visit: RESP FAILURE Discharge Diagnosis: acute on chronic respiratory failure, recurrent fall, left calf hematoma, paroxysmal atrial fibrillation off Coumadin now Condition on Discharge: Fair Activity: As commented below Activity Comment: continue home PT Non-emergency contact: Primary Care Provider Call non-emergency contact if: you have any medication questions and your symptoms worsen Follow-up/Referrals: Khoa Hui MD [Primary Care Provider] - (Date & Time 03/11/2024 10:00 AM Provider Khoa Hui MD Department [facility] ) Diet: Carb Consistent or DM2 and Heart Healthy Fluids: 2000ml (8 cups) Addtl Attending Provider Instructions: Please take precautions to avoid falls Take your medications as advised Your Coumadin was stopped but your aspirin is being continued Take a little extra time to initiate any activities from resting position Please keep appointments with the healthcare providers Pending Studies at Discharge: No Stand-Alone Forms: My [employer], Smoking Cessation Medications and DC Order Prescriptions: New doxycycline hyclate 100 mg Capsule 100 mg PO BID Qty: 14 0RF guaifenesin [Mucinex] 600 mg Tablet Extended Release 12hr 600 mg PO Q12 Qty: 30 0RF prednisone 10 mg tablet 10 mg PO DIRECTED Qty: 10 0RF Rx Instructions: 2 p.o. daily for 2 days and then 1 p.o. daily for 6 days Continued sotalol 80 mg Tablet 80 mg PO BID nitroglycerin 0.4 mg Tablet, Sublingual 0.4 mg sublingual DIRECTED PRN (Reason: Chest Pain) Rx Instructions: Place 1 Tablet under the tongue every 5 minutes as needed. spironolactone 25 mg tablet 25 mg PO QAM aspirin 81 mg Tablet,Delayed Release (Dr/Ec) 81 mg PO QAM azelastine 137 mcg (0.1 %) aerosol,spray 1 spray INTRANASAL [facility] albuterol sulfate 2.5 mg /3 mL (0.083 %) Solution For Nebulization 2.5 mg INHALATION DIRECTED PRN (Reason: Shortness Of Breath Or Wheezing) isosorbide mononitrate 30 mg Tablet Extended Release 24 Hr 30 mg PO QAM Qty: 30 0RF albuterol sulfate 90 mcg/actuation HFA aerosol inhaler 2 inh INHALATION Q4H PRN (Reason: Shortness Of Breath Or Wheezing) furosemide 20 mg Tablet 40 mg PO QAM Qty: 60 0RF Breztri Aerosphere 160-9-4.8 mcg/actuation HFA aerosol inhaler 2 inh INHALATION [facility] Qty: 1 0RF Discontinued warfarin 2.5 mg tablet 2.5 mg PO DAILY Rx Instructions: 1 WHOLE PILL MON, MON, MON; , MON HALF PILL sulfamethoxazole-trimethoprim 800-160 mg tablet 2 tab PO DAILY Rx Instructions: FOR 10 DAYS Discharge Orders: Discharge Order (Routine); Ordered 03/05/24 Ordered By: Temo Hatch Admission Data Admit Date/Time: 03/02/24 01:00 Attending Provider: Temo Hatch Admit Provider: Tee De La Paz Primary Care Provider: Khoa Hui Other Providers: Tee De La Paz; Monico Calix; Emerson Stallworth; Joey Ng; Caryn Mendiola; Anuj Mims; Meche Parker; Edward Arcos; Phong Alfred; Rosario Wiseman Andrew J.; Phong Rodriguez; Vidal Aguayo; Daniele Zamudio; Brett Barrett; Ilan King; Meche Pereira; Iam Caraballo Adam M.; Solomon Carver; Allyn Monk; Leeroy Mccarthy; Mahad Topete; Patricia Rojas; Robert Leger; Digna Hull; Solomon Rouse Other Interventions: Discharge Summary Assessment (RN) Last Done: 03/05/24 16:06
== END 2024-03-05 17:00 | disposition home health service (06) | DRG 189 ==
LOC: ED 19:11 → EDINP 03-02 01:00 → 2N 03-02 01:15

== ENCOUNTER 2024-05-03 09:07 | Inpatient (IN) ==
--- OUTSIDE RECORDS SUMMARY | 2024-05-03 09:14 | External Medical Summary | Summary of Care ---
Author Name Unknown Organization [facility] Address [address] [facility] [place] [place] [address] Phone [phone] Care Team Providers Care Novelty Candy Maker Name Role Phone Khoa Hui MD Primary Care Provider + Reason for Visit * Reason Comments Dosage Adjustment Via Phone (anticoag Cl inic) Encounter Details Date Type Department Care Team (Latest Contact Info) Description 04/30/2024 5:40 PM EST Anticoagulation Pharmacy, [facility] [address] [facility] [place] [address] Pharmacist1, [facility] [address] [place] [address] Paroxysmal atrial fibrillation (HCC)* Allergies Active Allergy [...] as of this encounter (statuses as of 04/30/2024) Medications Aspirin EC 81 MG Oral Tablet Delayed Release Take 1 Tablet by mouth in the morning. 01/22/20 22 Active Azelastine HCl 0.1 % Nasal Solution (Astelin)Indicatio ns:Rhinitis, nonallergic Administer 1 [place] into nostril in the morning and 1 [place] before bedtime. 90 mL 3 04/05/20 23 Active Isosorbide Mononitrate ER 30 MG Oral Tablet Extended Release 24 Hour (Imdur)Indications :CAD in [place] artery Take 1 Tablet by mouth in the morning. 90 Tablet 3 07/05/19 24 Active Nitroglycerin 0.4 MG Sublingual Tablet Sublingual (Nitrostat)Indicat ions:CAD in [place] artery Place 1 Tablet under the tongue every 5 minutes as needed for Pain, Chest. 25 Tablet 3 07/05/19 24 Active Spironolactone 25 MG Oral Tablet (Aldactone)Indicat ions:HTN, goal below 130/80,Chronic diastolic heart failure (HCC),Localized edema TAKE 1 TABLET IN THE MORNING 90 Tablet 3 09/05/19 24 Active Warfarin Sodium 2.5 MG Oral Tablet (Coumadin)Indicati ons:Paroxysmal atrial fibrillation (HCC) TAKE 1 TABLET DAILY DIRECTED BY ANTICOAG CLINIC 90 Tablet 3 10/12/19 24 Active Additional Information Patient not taking.Reported on 03/12/2024 Furosemide 20 MG Oral Tablet (Lasix)Indications :HTN, goal below 130/80,Chronic diastolic heart failure (HCC),Localized edema Take 2 Tablets by mouth in the morning. In the morning.. 180 Tablet 2 02/21/20 24 Active Breztri Aerosphere 160-9-4.8 MCG/ACT Inhalation Aerosol (Budeson-Glycopyrr ol-Formoterol)Alla cations:COPD, group D, by GOLD 2017 classification ([facility]) Inhale 2 Puffs by mouth in the morning and 2 Puffs before bedtime. 32.1 g 3 02/21/20 24 Active ProAir HFA 108 (90 Base) MCG/ACT Inhalation Aerosol SolutionIndication s:COPD, group D, by GOLD 2017 classification ([facility]) Inhale 2 Puffs by mouth every 4 hours as needed for Cough, Shortness of Breath or Wheezing. 54 g 3 02/21/20 24 Active predniSONE 10 MG Oral Tablet (Deltasone) Take 5 tabs for 2 days, 4 tabs for 2 days, 3 tabs for 2 days, 2 tabs for 2 days 1 tab for 2 days 30 Tablet 04/05/20 24 Active Sotalol HCl 80 MG Oral Tablet (Betapace)Indicati ons:Paroxysmal atrial fibrillation (HCC) TAKE 1 TABLET TWICE A DAY 180 Tablet 3 04/09/20 Active Albuterol Sulfate (2.5 MG/3ML) 0.083% Inhalation Nebulization Solution (Proventil) Inhale 1 Vial via nebulizer every 4 hours as needed for Wheezing. Or cough / tight feeling 300 mL 3 04/16/20 24 Active documented as of this encounter (statuses as of 04/30/2024) Active Problems Problem Noted Date Diagnosed Date Chronic respiratory failure with hypoxia 024 COPD, group D, by GOLD 2017 classification 05/16 Overview: Per COPD GOLD Classification Bladder mass 01/05/2022 Ureteral lesion, [place], right 01/05/2022 Chronic diastolic heart failure 07/01/2021 Pulmonary hypertension 07/01/2021 Lung nodule 07/01/2021 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 10/25/2018 Prediabetes 07/31/2018 Elevated TSH 07/31/2018 CAD in [place] artery 03/20/2015 Venous insufficiency 03/12/2014 Overview (03/12/2014): 03/18 US --no DVT LLE Paroxysmal atrial fibrillation 02/04/2014 Overview (03/28/2018): 01/16-[facility] hosp w/rapid response. Change to toprol. Start xarelto. 2007? converted with IV diltiazem Routine general medical exam ination at a health care facility 09/05/2013 Overview (02/22/2024): 02/26 TTE [facility] normal EF Grade II Ghosh DYs, [...] Dyslipidemia 09/10/2010 HTN, goal below 130/80 04/23/2009 Overview (04/23/2009): Modified per HTN protocol #16. Abnormal mammogram 10/09/2008 Overview (11/10/2010): Ca since 2008 MXr 11/02 - Birad 4 A, refused bx Ovarian cyst 10/09/2008 Tobacco use disorder 05/20/2008 Overview (05/20/2008): 10 cigarettes/day x 49 years Smoker unmotivated to quit documented as of this encounter (statuses as of 04/30/2024) Resolved Problems Problem Noted Date Diagnosed Date Resolved Date Ureteral cancer, right 03/10/202208/24 Localized edema 12/24/2015 04/26/2019 Kidney disease, chronic, sta ge III (GFR 30-59 ml/min) 07/29/2013 03/26/2015 Overview: Per CKD protocol #1 COPD, severe 05/08/2013 05/19/2022 Overview (07/18/2021): 06/26 PFT--severe obstruction--1. COPD gold 3 class [...] uteri 10/09/20082008 Polyp of corpus uteri 08/20/20082016 Overview (10/24/2008): D+C hystero done 10/11 - benign Elevated blood pressure, situational 08/06/2008 11/10/2008 Atrial fibrillation 05/20/2008 05/08/20 13 Overview (05/20/2008): Paroxysmal Chest pain 05/20/2008 12/12/2008 HTN, goal to be determined 1 06/23/2008 Overview (04/23/2009): Modified per HTN protocol #16. 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 INR - please obtain 04/30/24 Dx: I48.0 Ordering provider: Khoa Hui MD Please call results into or fax to [phone] Contacts Contact Date/Time Type Contact Phone/Fax 04/29/2024 02:19 PM EST Phone (Incoming) Reanna [phone] 04/30/2024 11:47 AM EST Phone (Outgoing) Lila Rolle (Self) [phone] (H) Description Given patients aversion to self injections and lower predicted risk Per Cardiology (see 01/13/22 note) okay with NO lovenox bridge. INR Result As of 04/30/2024 INR goal: 2.0-3.0 INR used for dosin.7 (04/29/2024) Patient Findings Negatives: Signs/symptoms of thrombosis, Signs/symptoms of bleeding, Change in health, Change in alcohol use, Change in activity, Upcoming invasive procedure, Missed doses, Extra doses, Change in medications, Change in diet/appetite, Bruising Warfarin Plan As of 04/30/2024 Full warfarin instructions: 1.25 mg every Tue, Brenda, Sat; 2.5 mg all other days No change documented: Howard Sheth RPh Next INR check: 05/20/2024 Repeat PT/INR in 3 week(s) Weekly dose: not changed I spent a total of 10-19 minutes (exact time 14 mins) on the date of service in preparation, delivery, and documentation of the care provided to Lila Rolle excluding any time spent in the performanceof separately billed services or time spent by another provider/QHP. Howard Anderson RPh, CACP, CDE Clinical Pharmacist [facility] 04/30/2024, 11:47 AM * Peyton Asher CPhT - 04/29/2024 2:20 PM EST Caller's name: Reanna Preferred call back number(OFFICE NUMBER FOR ): [phone] Reason for call: nursing facility, Reanna from [facility], calling with INR results. Result is2.7 which was drawn on 04/29/2024. Patient is not being discharged. Thank you, Peyton Asher Intelligence Specialist [facility] ([facility]) 04/29/2024,2:20 PM documented in this encounter Plan of Treatment Upcoming Encounters Date Type Department Care Team (Late st Contact Info) Description 05/17/2024 12:30 PM EST Imaging Radiology [facility] 1st Floor, [address] [place] [address] 05/20/2024 12:40 PM EST Office Visit Pulmonary Medicine, [address] [place] [address] Segundo Clarke MD [address] [place] [address] 05/20/2024 5:40 PM EST Anticoagulation Pharmacy, [facility] [address] [facility] [place] [address] Pharmacist1, [facility] [address] [facility] [address] 08/30/2024 12:20 PM EDT Office Visit [facility] [address] [place] [address] Khoa Hui MD [address] [place] [address] 03/18/2025 1:40 PM EDT Office Visit [facility] [address] [place] [address] Khoa Hui MD [address] [place] [address] Health Maintenance Due Date Last Done Comments [...] Date/Time Associated Diagnosis Comments OUTSIDE LAB-PT/INR Routine 04/29/2024 documented in this encounter Results * OUTSIDE LAB-PT/INR (04/29/2024) INR-OUTSIDE LAB 2.7 OUTS [facility] (SEE SCANNED REPORT) us History Per Patient LABORATORY Final Result OUTSIDE LAB (SEE SCANNED REPORT) documented in this encounter Visit Diagnoses Diagnosis Paroxysmal atrial fibrillation (HCC)- Primary Atrial fibrillation documented in this encounter Advance Directives Documents on File Type Date Recorded Patient Screen Tender Expl anation Power of Temporary Data Entry Clerk 03/20/2024 signed on 02/02/2022 * Full Code (Latest Code Status on [...] Advance Directives occurred with: Patient Care Teams Novelty Candy Maker Relationship Specialty Start Date End Date Khoa Hui MD [address] [place] [address] PCP - General Family Medicine 05/19/14 documented as of this encounter
--- OUTSIDE RECORDS SUMMARY | 2024-05-03 09:15 | External Medical Summary | Summary of Care ---
Author Name Unknown Organization [facility] Address [address] [place] [address] Phone [phone] Care Team Providers Care Certified Court/Medical Interpreter Name Role Phone Khoa Hui MD Primary Care Provider + Reason for Visit * Reason Onset Date Comments Advice 04/15/2024 Encounter Details Date Type Department Care Team (Late st Contact Info) Description 04/15/2024 Telephone Family Practice [facility] [address] [facility] [place] [address] Khoa Hui MD [address] [facility] [place] [address] Advice Allergies Active [...] as of this encounter (statuses as of 04/17/2024) Medications Aspirin EC 81 MG Oral Tablet Delayed Release Take 1 Tablet by mouth in the morning. 01/22/20 22 Active Azelastine HCl 0.1 % Nasal Solution (Astelin)Indicatio ns:Rhinitis, nonallergic Administer 1 [place] into nostril in the morning and 1 [place] before bedtime. 90 mL 3 04/05/20 23 Active Isosorbide Mononitrate ER 30 MG Oral Tablet Extended Release 24 Hour (Imdur)Indications :CAD in [place] artery Take 1 Tablet by mouth in the morning. 90 Tablet 3 07/05/19 24 Active Nitroglycerin 0.4 MG Sublingual Tablet Sublingual (Nitrostat)Indicat ions:CAD in [place] artery Place 1 Tablet under the tongue [...] cations:COPD, group D, by GOLD 2017 classification ([facility] [...] / tight feeling 300 mL 3 04/16/20 Active documented as of this encounter (statuses as of 04/17/2024) Active Problems Problem Noted Date Diagnosed Date Chronic respiratory failure with hypoxia 024 COPD, group D, by GOLD 2017 classification 05/16 Overview: Per COPD GOLD Classification Bladder mass 01/05/2022 Ureteral lesion, [place], right 01/05/2022 Chronic diastolic heart failure 07/01/2021 Pulmonary hypertension 07/01/2021 Lung nodule 07/01/2021 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 Change to toprol. Start xarelto. 2007? converted with IV diltiazem Routine general medical exam ination at a health care facility 09/05/2013 Overview (02/22/2024): 02/26 TTE [facility] normal EF [...] as of this encounter (statuses as of 04/17/2024) Resolved Problems Problem Noted Date Diagnosed Date [...] as of this encounter (statuses as of 04/17/2024) Immunizations Name Administration Dates Next Due COVID-19 [...] No 02/03/2023 Does the household have a [facility] source of income? (Household - for ages [...] Telephone Encounter - Florence Smith LPN - 04/17/2024 9:25 AM EST Neb supplies faxed. MyG sent to daughter. * Telephone Encounter - Khoa Hui MD - 04/16/2024 5:52 PM EST Let daughter know pt is unlikely to get any benefit from inhaler changes due to her severe COPD & ongoing smoking. Dr. Clarke said she may get benefit from Nebulizer. Can use albuterol neb Q4-6h (this would be instead of her albuterol inhaler--don't use both) Has appt next month for repeat CT scan & f/u with him after that. Will fax Nebulizer to jamari Long to [facility] * Telephone Encounter - Minoo Bernard LPN - 04/16/2024 1:35 PM EST HH Concerns Reanna RN, Calling from: [employer] Report/Concerns of: SOB Symptoms: sob- at rest and exertion Vitals: T 97.5 P 67 RR 18 BP 128/66 sitting SP O2 - 91% on 3lpm Lung sounds - clear Weight - 130 lb Narrative: Reanna saw patient on Thursday 04/12. Patient c/o increased SOB. Continues to smoke. When Reanna walked into the patient's apartment she had her O2 off and the apartment was filled with cigarette smoke. Denies respiratory distress. Inhaler's are not as effective as previously. Patient/family inquiring about getting a nebulizer and asking if any med changes should be made? DME Pended- [facility] Reanna see's Lila again tomorrow and will call to report any updates. Call back Jo Ann with once orders are placed and message is addressed, please. * Telephone Encounter - Florence [place] LPN - 04/16/2024 10:25 AM EST Left message for Debra to call dedicated nurse line. * Telephone Encounter - Shelly Teran OSA - 04/15/2024 2:47 PM EST Reason for patient's call: Reanna from [facility] asking to speak with a nurse. Caller was transferred to at the nurse line. Please return call to [phone]. documented in this encounter Plan of Treatment Upcoming Encounters Date Type Department Care Team (Late st Contact Info) Description 04/30/2024 5:40 PM EST Anticoagulation Pharmacy, [facility] [place] [address] [facility] [place] [address] Pharmacist1, [facility] [address] [place] [address] 05/17/2024 12:30 PM EST Imaging Radiology [facility] 1st [facility] [address] [facility] [place] [address] 05/20/2024 12:40 PM EST Office Visit Pulmonary Medicine, [facility] [address] [facility] [place] [address] Segundo Clarke MD [address] [place] [address] 08/30/2024 12:20 PM EDT Office Visit Family Practice [facility] [address] [place] [address] Khoa Hui MD [address] [place] [address] 03/18/2025 1:40 PM EDT Office Visit Family Practice [facility] [address] [facility] [place] [address] Khoa Hui MD [address] [facility] [place] [address] Health Maintenance Due Date Last Done Comments [...] as of this encounter Visit Diagnoses Diagnosis COPD, group D, by GOLD 2017 classification (HCC)- Primary Chronic respiratory failure with hypoxia (HCC) Chronic respiratory failure documented in this encounter Advance Directives Documents on File Type Date Recorded Patient Application Lead Expl anation Power of Production Grip 03/20/2024 signed on 02/02/2022 * Full Code [...] Advance Directives occurred with: Patient Care Teams Certified Court/Medical Interpreter Relationship Specialty Start Date End Date Khoa Hui MD [address] [place] [address] PCP - General Family Medicine 05/19/14 documented as of this encounter
--- OUTSIDE RECORDS SUMMARY | 2024-05-03 09:15 | External Medical Summary | Summary of Care ---
Author Name Unknown Organization [facility] Address [address] [facility] [place] [address] Phone [phone] Care Team Providers Care Television Cameraman Name Role Phone Khoa Hui MD Primary Care Provider + Reason for Visit * Reason Comments Dosage Adjustment Via Phone (anticoag Cl inic) Encounter Details Date Type Department Care Team (Latest Contact Info) Description 04/08/2024 5:40 PM EST Anticoagulation Pharmacy, [facility] [address] [facility] [place] [address] Pharmacist1, [facility] [address] [facility] [place] [address] Paroxysmal atrial fibrillation (HCC)* Allergies Active Allergy [...] as of this encounter (statuses as of 04/08/2024) Medications Medication Sig Dispensed Refills Start Date End Date Status Aspirin EC 81 MG Oral Tablet Delayed Release Take 1 Tablet by mouth in the morning. 01/21/2022 Active Azelastine HCl 0.1 % Nasal Solution (Astelin)Indications :Rhinitis, nonallergic Administer 1 [place] into nostril in the morning and 1 [place] before bedtime. 90 mL 3 04/05/2023 Active Isosorbide Mononitrate ER 30 MG Oral Tablet Extended Release 24 Hour (Imdur)Indications:C AD in [place] artery Take 1 Tablet by mouth in the morning. 90 Tablet 3 07/05/2023 Active Nitroglycerin 0.4 MG Sublingual Tablet Sublingual (Nitrostat)Indicatio ns:CAD in [place] artery Place 1 Tablet under the tongue [...] ANTICOAG CLINIC 90 Tablet 3 10/12/2023 Active Additional Information Patient not taking.Reported on 03/12/2024 Furosemide 20 MG Oral Tablet (Lasix)Indications:H [place], goal below 130/80,Chronic diastolic heart failure (HCC),Localized edema Take 2 Tablets by mouth in the morning. In the morning.. 180 Tablet 2 02/21/2024 Active Breztri Aerosphere 160-9-4.8 MCG/ACT Inhalation Aerosol (Budeson-Glycopyrrol -Formoterol)Indicati ons:COPD, group D, by GOLD 2017 classification ([facility]) Inhale 2 Puffs by mouth in the morning and 2 Puffs before bedtime. 32.1 g 3 02/21/2024 Active ProAir HFA 108 (90 Base) MCG/ACT Inhalation Aerosol SolutionIndications: COPD, group D, by GOLD 2017 classification ([facility]) Inhale 2 Puffs by mouth every 4 hours as needed for Cough, Shortness of Breath or Wheezing. 54 g 3 02/21/2024 Active predniSONE 10 MG Oral Tablet (Deltasone) Take 5 tabs for 2 days, 4 tabs for 2 days, 3 tabs for 2 days, 2 tabs for 2 days 1 tab for 2 days 30 Tablet 04/05/2024 Active documented as of this encounter (statuses as of 04/08/2024) Active Problems Problem Noted Date Diagnosed Date Chronic respiratory failure with hypoxia 024 COPD, group D, by GOLD 2017 classification 05/16 Overview: Per COPD GOLD Classification Bladder mass 01/05/2022 Ureteral lesion, [place], right 01/05/2022 Chronic diastolic heart failure 07/01/2021 Pulmonary hypertension 07/01/2021 Lung nodule 07/01/2021 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 10/25/2018 Prediabetes 07/31/2018 Elevated TSH 07/31/2018 CAD in [place] artery 03/20/2015 Venous insufficiency 03/12/2014 Overview: 03/18 [...] as of this encounter (statuses as of 04/08/2024) Resolved Problems Problem Noted Date Diagnosed Date [...] as of this encounter (statuses as of 04/08/2024) Immunizations Name Administration Dates Next Due COVID-19 mRNA, LNP-s, No Pre serve, 2-Dose Series ([facility] [employer]) 01/26/2022,03/08/2021,08/20/2020,07/30 Pneumococcal Polysaccharide PPV23 (Pneumovax) 05/13/2009 Seasonal [...] as of this encounter Progress Notes * Marian Bailey RPh - 04/08/2024 12:37 PM EST Medication Therapy Disease Management - Anticoagulation Patient: Lila Rolle | : 1945 Subjective Contacts Contact Date/Time Type Contact Phone/Fax 04/08/2024 10:11 AM EST Phone (Incoming) sara [phone] 04/08/2024 12:42 PM EST Phone (Outgoing) AquilinoRosalinai (Self) [phone] (H) Patient-Reported Symptoms: Patient Findings Negatives: Signs/symptoms of thrombosis, Signs/symptoms of bleeding, Change in health, Change in alcohol use, Change in activity, Upcoming invasive procedure, Missed doses, Extra doses, Change in medications, Change in diet/appetite, Bruising Objective Current Warfarin Dose As of 04/08/2024 Warfarin maintenance plan: 1.25 mg (2.5 mg x 0.5) every Tue, Brenda, Sat; 2.5 mg (2.5 mg x 1) all other days INR Result As of 04/08/2024 INR goal: 2.0-3.0 INR used for dosin.6 (04/08/2024) Assessment & Plan Warfarin Plan As of 04/08/2024 Full warfarin instructions: 1.25 mg every Tue, Brenda, Sat; 2.5 mg all other days No change documented: Marian Bailey RPh Next INR check: 04/30/2024 Repeat PT/INR in 3 week(s) Weekly dose: not changed Additional Dosing Information: Description Given patients aversion to self injections and lower predicted risk Per Cardiology (see 01/13/22 note) okay with NO lovenox bridge. Faxed orders to [facility] at [phone]. INR - please obtain 04/30/24 Dx: I48.0 Ordering provider: Khoa Hui MD Please call results into or fax to [phone] Marian Bailey RP, PharmD, BCACP Clinical Pharmacist [facility] 04/08/24, 12:37 PM * Odalys Tuttle counsellors - 04/08/2024 10:11 AM EST Caller's name: sara Banks call back number(OFFICE NUMBER FOR ): [phone] Reason for call: nursing facility, [facility], calling with INR results. Result is 2.6 which was drawn on 04-08-24. Patient is not being discharged. Nurse also asking on pt behalf if this information could be spread to the wound clinic. They statedpt will be seeing them on Monday for an appt. Thank you, Odalys Tuttle Pot Maker [facility] ([facility]) 04/08/2024 10:11 AM documented in this encounter Plan of Treatment Upcoming Encounters Date Type Department Care Team (Late st Contact Info) Description 04/15/2024 5:40 PM EST Anticoagulation Pharmacy, [facility] 200 [facility] [place] [address] Pharmacist1, [facility] [address] [facility] [place] [address] 05/17/2024 12:30 PM EST Imaging Radiology [facility] 1st [facility] [address] [facility] [place] [address] 05/20/2024 12:40 PM EST Office Visit Pulmonary Medicine, [facility] [address] [facility] [place] [address] Segundo Clarke MD [address] [place] [address] 08/30/2024 12:20 PM EDT Office Visit [facility] [address] [place] [address] Khoa Hui MD 132 [facility] [place] [address] 03/18/2025 1:40 PM EDT Office Visit [facility] [address] [place] [address] Khoa Hui MD [address] [place] [address] Health Maintenance Due Date Last Done Comments [...] Date/Time Associated Diagnosis Comments OUTSIDE LAB-PT/INR Routine 04/08/2024 documented in this encounter Results * OUTSIDE LAB-PT/INR (04/08/2024) INR-OUTSIDE LAB 2.6 04/08/2024 History Per Patient LABORATORY documented in this encounter Visit Diagnoses Diagnosis Paroxysmal atrial fibrillation (HCC)- Primary Atrial fibrillation documented in this encounter Advance Directives Documents on File Type Date Recorded Patient Hide Mill Worker Expl anation Power of Structural Worker 03/20/2024 signed on 02/02/2022 * Full Code [...] Advance Directives occurred with: Patient Care Teams Television Cameraman Relationship Specialty Start Date End Date Khoa Hui MD [address] [place] [address] PCP - General Family Medicine 05/19/14 documented as of this encounter"
--- OUTSIDE RECORDS SUMMARY | 2024-05-03 09:15 | External Medical Summary | Summary of Care ---
Author Name Unknown Organization [facility] Address [address] [place] [address] Phone [phone] Care Team Providers Care Lockstitch Lining Maker Name Role Phone Khoa Hui MD Primary Care Provider + Reason for Visit * Reason Onset Date Comments Advice 03/26/2024 Encounter Details Date Type Department Care Team (Late st Contact Info) Description 03/26/2024 Telephone Family Practice [facility] [address] [facility] [address] Khoa Hui MD [address] [facility] [place] [address] Advice Allergies Active [...] as of this encounter (statuses as of 03/29/2024) Medications Medication Sig Dispensed Refills Start Date End Date Status Aspirin EC 81 MG Oral Tablet Delayed Release Take 1 Tablet by mouth in the morning. 01/21/2022 Active Azelastine HCl 0.1 % Nasal Solution (Astelin)Indications :Rhinitis, nonallergic Administer 1 [place] into nostril in the morning and 1 [place] before bedtime. 90 mL 3 04/05/2023 Active Isosorbide Mononitrate ER 30 MG Oral Tablet Extended Release 24 Hour (Imdur)Indications:C AD in [place] artery Take 1 Tablet by mouth in the morning. 90 Tablet 3 07/05/2023 Active Nitroglycerin 0.4 MG Sublingual Tablet Sublingual (Nitrostat)Indicatio ns:CAD in [place] artery Place 1 Tablet under the [...] ons:COPD, group D, by GOLD 2017 classification ([facility]) Inhale 2 Puffs by mouth in the morning and 2 Puffs before bedtime. 32.1 g 3 02/21/2024 Active ProAir HFA 108 (90 Base) MCG/ACT Inhalation Aerosol SolutionIndications: COPD, group D, by GOLD 2017 classification ([facility]) Inhale 2 Puffs by mouth every 4 hours as needed for Cough, Shortness of Breath or Wheezing. 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 See 03/25 MyG enc. * Telephone Encounter - Evette Gongora OSA - 03/26/2024 12:13 PM EDT [facility] calling to relay some information that they have after seeing pt. Today 03/26/2024. Pt. Legs are very swollen and they seem to be getting more swollen. The right leg is nowseeping and down towards the calf there's bubbling and redness going on. They are concerned and would like to discuss what steps we suggest they take with pt. Requesting that we call back at personal phone: [phone] documented in this encounter Plan of Treatment Upcoming Encounters Date Type Department Care Team (Late st Contact Info) Description 04/02/2024 5:40 PM EDT Anticoagulation Pharmacy, [facility] [place] [address] Pharmacist1, [facility] [address] [facility] [place] [address] 04/26/2024 10:30 AM EST Office Visit Cardiology, [facility] 132 [facility] [place] [address] Kely Pepper PA-C [address] [facility] [place] [address] 05/17/2024 12:30 PM EST Imaging Radiology [address] 132 [facility] [place] [address] 05/20/2024 12:40 PM EST Office Visit Pulmonary Medicine, [facility] 132 [facility] [place] [address] Segundo Clarke MD [address] [place] [address] 08/30/2024 12:20 PM EDT Office Visit [facility] 132 [facility] [place] [address] Khoa Hui MD 132 [facility] [place] [address] 03/18/2025 1:40 PM EDT Office Visit [facility] [place] [address] Khoa Hui MD 132 [facility] [place] [address] Health Maintenance Due Date Last Done Comments [...] filedocumented as of this encounter Advance Directives Documents on File Type Date Recorded Patient Semi Conductor Assembler Expl anation Power of Chalk Extruding Machine Operator 03/20/2024 signed on 02/02/2022 * Full Code [...] Advance Directives occurred with: Patient Care Teams Lockstitch Lining Maker Relationship Specialty Start Date End Date Khoa Hui MD [address] [place] [address] PCP - General Family Medicine 05/19/14 documented as of this encounter
--- OUTSIDE RECORDS SUMMARY | 2024-05-03 09:15 | External Medical Summary | Summary of Care ---
Author Name Unknown Organization [facility] Address [address] [place] [facility] [place] [address] Phone [phone] Care Team Providers Care Chief Contract Officer Name Role Phone Khoa Hui MD Primary Care Provider + Reason for Visit * Reason Comments Dosage Adjustment Via Phone (anticoag Cl inic) Encounter Details Date Type Department Care Team (Latest Contact Info) Description 04/02/2024 5:40 PM EDT Anticoagulation Pharmacy, [facility] 200 [facility] [place] [address] Pharmacist1, [facility] 200 [facility] [address] Paroxysmal atrial fibrillation (HCC)* Allergies Active Allergy [...] as of this encounter (statuses as of 04/02/2024) Medications Medication Sig Dispensed Refills Start Date End Date Status Aspirin EC 81 MG Oral Tablet Delayed Release Take 1 Tablet by mouth in the morning. 01/21/2022 Active Azelastine HCl 0.1 % Nasal Solution (Astelin)Indications :Rhinitis, nonallergic Administer 1 [place] into nostril in the morning and 1 [place] before bedtime. 90 mL 3 04/05/2023 Active Isosorbide Mononitrate ER 30 MG Oral Tablet Extended Release 24 Hour (Imdur)Indications:C AD in [place] artery Take 1 Tablet by mouth in the morning. 90 Tablet 3 07/05/2023 Active Nitroglycerin 0.4 MG Sublingual Tablet Sublingual (Nitrostat)Indicatio ns:CAD in [place] artery Place 1 Tablet under the tongue [...] ons:COPD, group D, by GOLD 2017 classification ([facility]) Inhale 2 Puffs by mouth in the morning and 2 Puffs before bedtime. 32.1 g 3 02/21/2024 Active ProAir HFA 108 (90 Base) MCG/ACT Inhalation Aerosol SolutionIndications: COPD, group D, by GOLD 2017 classification ([facility]) Inhale 2 Puffs by mouth every 4 hours as needed for Cough, Shortness of Breath or Wheezing. 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 Change to toprol. Start xarelto. 2007? converted with IV diltiazem Routine general medical exam ination at a health care facility 09/05/2013 Overview: 02/26 TTE [facility] normal EF Grade II Ghosh DYs, mild [...] as of this encounter (statuses as of 04/02/2024) Resolved Problems Problem Noted Date Diagnosed Date [...] as of this encounter (statuses as of 04/02/2024) Immunizations Name Administration Dates Next Due COVID-19 mRNA, LNP-s, No Pre serve, 2-Dose Series ([employer]) 01/26/2022,03/08/2021,08/20/2020,07/30 Pneumococcal Polysaccharide PPV23 (Pneumovax) 05/13/2009 Seasonal [...] Progress Notes * Howard Sheth RPh - 04/02/2024 10:23 AM EDT Images from the original note were not included. Patient Phone Numbers Patient is getting care from [facility] PH: [phone] FAX: [phone] -- Melissa [phone] (nurse in home) Contacts Contact Date/Time Type Contact Phone/Fax 04/02/2024 10:05 AM EDT Phone (Incoming) [employer] [phone] Description Given patients aversion to self injections and lower predicted risk Per Cardiology (see 01/13/22 note) okay with NO lovenox bridge. INR Result As of 04/02/2024 INR goal: 2.0-3.0 INR used for dosin.1 (04/02/2024) Patient Findings Positives: Change in diet/appetite (She will continue to increase her vitamin k intake. Has kale, spinach, etc at home.) Negatives: Signs/symptoms of thrombosis, Signs/symptoms of bleeding, Change in health, Change in alcohol use, Change in activity, Upcoming invasive procedure, Missed doses, Extra doses, Change in medications, Bruising Warfarin Plan As of 04/02/2024 Full warfarin instructions: 1.25 mg every Tue, Brenda, Sat; 2.5 mg all other days No change documented: Howard Sheth RPh Next INR check: 04/16/2024 Repeat PT/INR in 2 week(s) Weekly dose: not changed I spent a total of 10-19 minutes (exact time 15 mins) on the date of service in preparation, delivery, and documentation of the care provided to Lila Rolle excluding any time spent in the performanceof separately billed services or time spent by another provider/QHP. Howard Anderson RPh, CACP, CDE Clinical Pharmacist [facility] 04/02/2024, 10:28 AM * Pat Goel CPhT - 04/02/2024 10:05 AM EDT Caller's name: Reanna, nurse Preferred call back number(OFFICE NUMBER FOR ): [phone] Reason for call: nursing facility, [facility] , calling with INR results. Result is 3.1 which was drawn on 04/02/2024. Patient is not being discharged. Thank you, Pat Goel CPhT Reject Opener And Filler II [facility] ([facility]) 04/02/2024,10:05 AM documented in this encounter Plan of Treatment Upcoming Encounters Date Type Department Care Team (Late st Contact Info) Description 04/16/2024 5:40 PM EST Anticoagulation Pharmacy, [facility] [address] Pharmacist1, [facility] [address] 04/26/2024 10:30 AM EST Office Visit Cardiology, [facility] [address] [facility] [place] [address] Kely Pepper, ROD [address] [facility] [place] [address] 05/17/2024 12:30 PM EST Imaging Rad[facility] 132 [facility] [place] [address] 05/20/2024 12:40 PM EST Office Visit Pulmonary Medicine, [facility] 132 [facility] [place] [address] Segundo Clarke MD [address] [facility] [place] [address] 08/30/2024 12:20 PM EDT Office Visit [facility] [address] [place] [address] Khoa Hui MD [address] [place] [address] 03/18/2025 1:40 PM EDT Office Visit [facility] [address] [place] [address] Khoa Hui MD [address] [place] [address] Health Maintenance Due Date Last Done Comments [...] Date/Time Associated Diagnosis Comments OUTSIDE LAB-PT/INR Routine 04/02/2024 documented in this encounter Results * OUTSIDE LAB-PT/INR (04/02/2024) INR-OUTSIDE LAB 3.1 04/02/2024 History Per Patient LABORATORY documented in this encounter Visit Diagnoses Diagnosis Paroxysmal atrial fibrillation (HCC)- Primary Atrial fibrillation documented in this encounter Advance Directives Documents on File Type Date Recorded Patient Attorney General Expl anation Power of Fish Hatchery Superintendent 03/20/2024 signed on 02/02/2022 * Full Code [...] Advance Directives occurred with: Patient Care Teams Chief Contract Officer Relationship Specialty Start Date End Date Khoa Hui MD [address] [facility] [place] [address] PCP - General Family Medicine 05/19/14 documented as of this encounter
--- OUTSIDE RECORDS SUMMARY | 2024-05-03 09:15 | External Medical Summary | Summary of Care ---
Author Name Unknown Organization [facility] Address [address] [facility] [address] Phone [phone] Care Team Providers Care Maintenance Worker Swimming Pool Name Role Phone Khoa Hui MD Primary Care Provider + Encounter Details Date Type Department Care Team (Late st Contact Info) Description 04/02/2024 Telephone Centralized Clinical Pharmacy Services, [facility] [address] [place] [address] [place] [address] Pharmacist1, [facility] [address] Allergies Active Allergy Reactions [...] as of this encounter (statuses as of 04/03/2024) Medications Medication Sig Dispensed Refills Start Date End Date Status Aspirin EC 81 MG Oral Tablet Delayed Release Take 1 Tablet by mouth in the morning. 01/21/2022 Active Azelastine HCl 0.1 % Nasal Solution (Astelin)Indications :Rhinitis, nonallergic Administer 1 [place] into nostril in the morning and 1 [place] before bedtime. 90 mL 3 04/05/2023 Active Isosorbide Mononitrate ER 30 MG Oral Tablet Extended Release 24 Hour (Imdur)Indications:C AD in [place] artery Take 1 Tablet by mouth in the morning. 90 Tablet 3 07/05/2023 Active Nitroglycerin 0.4 MG Sublingual Tablet Sublingual (Nitrostat)Indicatio ns:CAD in [place] artery Place 1 Tablet under the tongue [...] ons:COPD, group D, by GOLD 2017 classification ([facility]) Inhale 2 Puffs by mouth in the morning and 2 Puffs before bedtime. 32.1 g 3 02/21/2024 Active ProAir HFA 108 (90 Base) MCG/ACT Inhalation Aerosol SolutionIndications: COPD, group D, by GOLD 2017 classification ([facility]) Inhale 2 Puffs by mouth every 4 hours as needed for Cough, Shortness of Breath or Wheezing. 54 g 3 02/21/2024 Active documented as of this encounter (statuses as of 04/03/2024) Active Problems Problem Noted Date Diagnosed Date Chronic respiratory failure with hypoxia 024 COPD, group D, by GOLD 2017 classification 05/16 Overview: Per COPD GOLD Classification Bladder mass 01/05/2022 Ureteral lesion, [place], right 01/05/2022 Chronic diastolic heart failure 07/01/2021 Pulmonary hypertension 07/01/2021 Lung nodule 07/01/2021 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 10/25/2018 Prediabetes 07/31/2018 Elevated TSH 07/31/2018 CAD in [place] artery 03/20/2015 Venous insufficiency 03/12/2014 Overview: 03/18 US --no DVT LLE Paroxysmal atrial fibrillation 02/04/2014 Overview: 01/16-[facility] hosp w/rapid response. Change to toprol. Start xarelto. 2007? converted with IV diltiazem Routine general medical exam ination at a health care facility 09/05/2013 Overview: 02/26 TTE [facility] normal EF Grade II Ghosh [...] as of this encounter (statuses as of 04/03/2024) Resolved Problems Problem Noted Date Diagnosed Date [...] as of this encounter (statuses as of 04/03/2024) Immunizations Name Administration Dates Next Due COVID-19 mRNA, LNP-s, No Pre serve, 2-Dose Series ([employer] 01/26/2022,03/08/2021,08/20/2020,07/30 Pneumococcal Polysaccharide PPV23 (Pneumovax) 05/13/2009 Seasonal [...] Telephone Encounter - Howard Sheth RPh - 04/02/2024 4:33 PM EDT Spoke to Jo Ann at 4:33 PM and wound clinic wants INR within 2 days of treatment. Lila will need anINR on 04/08. I will contact [facility] tomorrow to see if they can do an INR 04/08. Patient is getting care [facility] PH: [phone] FAX: [phone] -- Melissa [phone] (nurse in home) Next INR on 04/08/2024 please. Howard Anderson RPh, [facility] Clinical Pharmacist [facility] 04/02/2024, 4:34 PM * Telephone Encounter - Odalys Tuttle PHARM Tech - 04/02/2024 12:03 PM EDT Caller's name: Jo Ann Preferred call back number(OFFICE NUMBER FOR ): [phone] Reason for call: pt and daughter calling in she is scheduled on Monday with wound care and the clinic is requesting that she have irn drawn on Monday. Please call pt back to advise. Thank you, Odalys Tuttle Track Worker [facility] ([facility]) 04/02/2024 12:03 PM documented in this encounter Plan of Treatment Upcoming Encounters Date Type Department Care Team (Late st Contact Info) Description 04/15/2024 5:40 PM EST Anticoagulation Pharmacy, [facility] [address] [address] Pharmacist1, [facility] [address] [place] [address] 04/26/2024 10:30 AM EST Office Visit Cardiology, [facility] 132 [facility] [place] [address] Kely Pepper PA-C 132 [facility] [place] [address] 05/17/2024 12:30 PM EST Imaging Radiology [facility] 1st Floor, [place] 132 [facility] [place] [address] 05/20/2024 12:40 PM EST Office Visit Pulmonary Medicine, [facility] 132 [facility] [place] [address] Segundo Clarke MD [address] [place] [address] 08/30/2024 12:20 PM EDT Office Visit Family Practice [facility] 132 [facility] [place] [address] Khoa Hui MD 132 [facility] [place] [address] 03/18/2025 1:40 PM EDT Office Visit Family Practice [facility] 132 [facility] [place] [address] Khoa Hui MD 132 [facility] [place] [address] Health Maintenance Due Date Last Done Comments [...] Documents on File Type Date Recorded Patient Marketing Co Op Expl anation Power of Card Hand 03/20/2024 signed on 02/02/2022 * Full Code [...] Advance Directives occurred with: Patient Care Teams Maintenance Worker Swimming Pool Relationship Specialty Start Date End Date Khoa Hui MD [address] [place] [address] PCP - General Family Medicine 05/19/14 documented as of this encounter
--- OUTSIDE RECORDS SUMMARY | 2024-05-03 09:15 | External Medical Summary | Summary of Care ---
Author Name Unknown Organization [facility] Address [address] [facility] [address] Phone [phone] Care Team Providers Care Compliance Project Manager Name Role Phone Khoa Hui MD Primary Care Provider + Reason for Visit * Reason Onset Date Comments Appointment 03/19/2024 Encounter Details Date Type Department Care Team (Late st Contact Info) Description 03/19/2024 Telephone Pharmacy, [facility] 200 [place] [address] Pharmacist2, [facility] 200 [place] [address] Appointment Allergies Active Allergy Reactions Criticality Noted Date Comments Marlo Inhibitors Cough 02/23/2009 Valsartan Edema face/lips/tongue High 05/17/2012 Dog Dander Other (Please comment) High 06/11/2015 Congestion, SOB Influenza Vac Split Quad Other (Please comment) 03/15/2012 Sinus pressure, drainage after flu shot on 2 occasions Levofloxacin 10/07/2013 Itching; hives on trunk and lower extremities Nickel Rash 05/20/2008 documented as of this encounter (statuses as of 03/19/2024) Medications Medication Sig Dispensed Refills Start Date End Date Status Aspirin EC 81 MG Oral Tablet Delayed Release Take 1 Tablet by mouth in the morning. 01/21/2022 Active Azelastine HCl 0.1 % Nasal Solution (Astelin)Indications :Rhinitis, nonallergic Administer 1 [place] into nostril in the morning and 1 [place] before bedtime. 90 mL 3 04/05/2023 Active Isosorbide Mononitrate ER 30 MG Oral Tablet Extended Release 24 Hour (Imdur)Indications:C AD in [place] artery Take 1 Tablet by mouth in the morning. 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 Change to toprol. Start xarelto. 2007? converted with IV diltiazem Routine general medical exam ination at a health care facility 09/05/2013 Overview: 02/26 TTE [facility] normal EF Grade II Ghosh DYs, mild [...] as of this encounter (statuses as of 03/19/2024) Resolved Problems Problem Noted Date Diagnosed Date [...] as of this encounter (statuses as of 03/19/2024) Immunizations Name Administration Dates Next Due COVID-19 mRNA, LNP-s, No Pre serve, 2-Dose Series ([employer]) 01/26/2022,03/08/2021,08/20/2020,07/30 Pneumococcal Polysaccharide PPV23 (Pneumovax) 05/13/2009 Seasonal [...] Telephone Encounter - Phong Downs RPh - 03/19/2024 2:22 PM EDT [facility] notes that Monday is the preferred day for the HH team. Will continue with the INR this Mondaybut plan for subsequent INRs to be done on Monday. Phong Downs, PharmD, BCACP, [facility] Clinical Pharmacist 03/19/2024, 2:23 PM * Telephone Encounter - Rashida Olguin CPhT - 03/19/2024 9:25 AM EDT Caller's name: Machelle Preferred call back number(OFFICE NUMBER FOR HH): [phone] Reason for call: Pt is seen by [facility] on Tuesdays. Machelle would like to know if it's ok to waituntil Monday to draw the pt's next INR. Please reach out on whether or not Monday is ok or not. Thank you, Rashida Olguin CPhT Wick And Base Assembler II [facility] [address] [place], [place] [address] [address] [place] [address] [id number] 03/19/2024,9:26 AM documented in this encounter Plan of Treatment Upcoming Encounters Date Type Department Care Team (Late st Contact Info) Description 03/22/2024 5:40 PM EDT Anticoagulation Pharmacy, [facility] [place] [address] [place] [address] [address] Pharmacist2, [facility] [address] [place] [address] [address] 04/26/2024 10:30 AM EST Office Visit Cardiology, [facility] [address] [place] [address] Kely Pepper PA-C [address] [place] [address] 05/17/2024 12:30 PM EST Imaging Radiology [facility] 132 [facility] [place] [address] 05/20/2024 12:40 PM EST Office Visit Pulmonary Medicine, [facility] 132 [facility] [place] [address] Segundo Clarke MD [address] [place] [address] 08/30/2024 12:20 PM EDT Office Visit Family Practice [facility] 132 [facility] [place] [address] Khoa Hui MD 132 [facility] [place] [address] 03/18/2025 1:40 PM EDT Office Visit Family Practice [facility] 132 [facility] [place] [address] Khoa Hui MD 132 [facility] [place] [address] Health Maintenance Due Date Last Done Comments [...] Advance Directives occurred with: Patient Care Teams Compliance Project Manager Relationship Specialty Start Date End Date Khoa Hui MD [address] [place] [address] PCP - General Family Medicine 05/19/14 documented as of this encounter
--- OUTSIDE RECORDS SUMMARY | 2024-05-03 09:15 | External Medical Summary | Summary of Care ---
Author Name Unknown Organization [facility] Address [address] [place] [address] Phone [phone] Care Team Providers Care Food Quality Technician Name Role Phone Khoa Hui MD Primary Care Provider + Reason for Visit * Reason Onset Date Comments Update 04/02/2024 Encounter Details Date Type Department Care Team (Late st Contact Info) Description 04/02/2024 Telephone Family Practice [facility] [address] [facility] [place] [address] Khoa Hui MD [address] [facility] [place] [address] Update Allergies Active Allergy Reactions Criticality Noted Date Comments Marlo Inhibitors Cough 02/23/2009 Valsartan Edema face/lips/tongue High 05/17/2012 Dog Dander Other (Please comment) High 06/11/2015 Congestion, SOB Influenza Vac Split Quad Other (Please comment) 03/15/2012 Sinus pressure, drainage after flu shot on 2 occasions Levofloxacin 10/07/2013 Itching; hives on trunk and lower extremities Nickel Rash 05/20/2008 documented as of this encounter (statuses as of 04/05/2024) Medications Medication Sig Dispensed Refills Start Date End Date Status Aspirin EC 81 MG Oral Tablet Delayed Release Take 1 Tablet by mouth in the morning. 01/21/2022 Active Azelastine HCl 0.1 % Nasal Solution (Astelin)Indications :Rhinitis, nonallergic Administer 1 [place] into nostril in the morning and 1 [place] before bedtime. 90 mL 3 04/05/2023 Active Isosorbide Mononitrate ER 30 MG Oral Tablet Extended Release 24 Hour (Imdur)Indications:C AD in [place] artery Take 1 Tablet by mouth in the morning. 90 Tablet 3 07/05/2023 Active Nitroglycerin 0.4 MG Sublingual Tablet Sublingual (Nitrostat)Indicatio ns:CAD in [place] artery Place 1 Tablet under the [...] as of this encounter (statuses as of 04/05/2024) Active Problems Problem Noted Date Diagnosed Date Chronic respiratory failure with hypoxia 024 COPD, group D, by GOLD 2017 classification 05/16 Overview: Per COPD GOLD Classification Bladder mass 01/05/2022 Ureteral lesion, [place], right 01/05/2022 Chronic diastolic heart failure 07/01/2021 Pulmonary hypertension 07/01/2021 Lung nodule 07/01/2021 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 10/25/2018 Prediabetes 07/31/2018 Elevated TSH 07/31/2018 CAD in [place] artery 03/20/2015 Venous insufficiency 03/12/2014 Overview: 03/18 US --no DVT LLE Paroxysmal atrial fibrillation 02/04/2014 Overview: 01/16-[facility] hosp w/rapid response. Change to toprol. Start xarelto. 2007? converted with IV diltiazem Routine general medical exam ination at a health care facility 09/05/2013 Overview: 02/26 TTE [facility] normal EF Grade II [...] as of this encounter (statuses as of 04/05/2024) Resolved Problems Problem Noted Date Diagnosed Date [...] as of this encounter (statuses as of 04/05/2024) Immunizations Name Administration Dates Next Due COVID-19 [...] Telephone Encounter - Florence Smith LPN - 04/02/2024 4:49 PM EDT Called and spoke with daughter, Jo Ann. Notified of below. Jo Ann stated she would get a weight on patient tomorrow. Stressed importance of daily weights to daughter. Jo Ann will message with weight While on the phone, daughter stated that patient is scheduled to see [facility] on Tuesday 04/10 * Telephone Encounter - Khoa Hui MD - 04/02/2024 3:18 PM EDT Please let daughter/patient know we need her to track daily weights--if the weight jumps up more than 3 pounds from her baseline, then we can adjust her water pills for her heart & breathing. Does she have a scale at home she can check for us today? If weight stable, then will defer to Pulm for COPD flare possibility * Telephone Encounter - Jody Martinez LPN - 04/02/2024 2:28 PM EDT HH Concerns Reanna PT, Calling from: [facility] Report/Concerns of: increase SOB Symptoms: See Narrative Vitals: T-97.2 P-72 RR-18 BP 120/60 SP O2-92%- 3 LPM via NC Lung sounds-clear Weight-Refuses They do not measure leg circumference Narrative: Reanna seen patient this AM and noticed increase SOB from 03/26 in person visit. Patient states she has noticed increase SOB x 1 wk and states inhalers are not working. wearing oxygen 3 LPM via NC, taking furosemide 40 MG daily, breztri inhaler and ProAir as directed. Reanna states leg swelling,drainage,red coloration has improved since 03/26 visit. Reanna made aware wound clinic referral faxed to [facility] on 04/01. Last Pulmonary appt- 02/19/24 Next -05/20/24 Call back jo ann (Daughter) with any advice or orders at [phone] Please fax new orders to [phone] or call [phone] Please advise- PCP and Pulmonary * Telephone Encounter - Leslie Eubanks OSA - 04/02/2024 2:25 PM EDT Reason for patient's call: update on patient Caller was transferred to Jody at the nurse line. documented in this encounter Plan of Treatment Upcoming Encounters Date Type Department Care Team (Late st Contact Info) Description 04/15/2024 5:40 PM EST Anticoagulation Pharmacy, [facility] [address] [place] [address] Pharmacist1, [facility] [address] [facility] [place] [address] 05/17/2024 12:30 PM EST Imaging Radiology [facility] 1st Floor, [place] [address] [facility] [place] [address] 05/20/2024 12:40 PM EST Office Visit Pulmonary Medicine, [facility] [address] [facility] [place] [address] Segundo Clarke MD [address] [place] [address] 08/30/2024 12:20 PM EDT Office Visit Family Practice [facility] 132 [facility] [place] [address] Khoa Hui MD 132 [facility] [place] [address] 03/18/2025 1:40 PM EDT Office Visit Family [facility] [address] [place] [address] Khoa Hui MD [address] [place] [address] Health Maintenance Due Date Last Done Comments [...] Documents on File Type Date Recorded Patient Outside Sales Consultant Expl anation Power of Measurement Coordinator 03/20/2024 signed on 02/02/2022 * Full Code [...] Directives occurred with: Patient Care Teams Food Quality Technician Relationship Specialty Start Date End Date Khoa Hui MD [address] [place] [address] PCP - General Family Medicine 05/19/14 documented as of this encounter
--- OUTSIDE RECORDS SUMMARY | 2024-05-03 09:15 | External Medical Summary | Summary of Care ---
Author Name Unknown Organization [facility] Address [address] [place] [address] Phone [phone] Care Team Providers Care Sales Administration Specialist Name Role Phone Khoa Bill MD Primary Care Provider + Reason for Visit * Reason Comments eRx-Medication Refill Encounter Details Date Type Department Care Team (Late st Contact Info) Description 04/08/[address] [facility] [address] [place] [address] Khao Bill MD [address] [facility] [place] [address] Paroxysmal atrial fibrillation (HCC) Allergies Active Allergy [...] as of this encounter (statuses as of 04/09/2024) Medications Medication Sig Dispensed Refills Start Date End Date Status Aspirin EC 81 MG Oral Tablet Delayed Release Take 1 Tablet by mouth in the morning. 2 Active Azelastine HCl 0.1 % Nasal Solution (Astelin)Indication s:Rhinitis, nonallergic Administer 1 [place] into nostril in the morning and 1 [place] before bedtime. 90 mL 3 3 Active Isosorbide Mononitrate ER 30 MG Oral Tablet Extended Release 24 Hour (Imdur)Indications: CAD in [place] artery Take 1 Tablet by mouth in the morning. 90 Tablet 3 4 Active Nitroglycerin 0.4 MG Sublingual Tablet Sublingual (Nitrostat)Indicati ons:CAD in [place] artery Place 1 Tablet under the tongue every 5 minutes as needed for Pain, Chest. 25 Tablet 3 4 Active Spironolactone 25 MG Oral Tablet (Aldactone)Indicati ons:HTN, goal below 130/80,Chronic diastolic heart failure (HCC),Localized edema TAKE 1 TABLET IN THE MORNING 90 Tablet 3 4 Active Warfarin Sodium 2.5 MG Oral Tablet (Coumadin)Indicatio ns:Paroxysmal atrial fibrillation (HCC) TAKE 1 TABLET DAILY DIRECTED BY ANTICOAG CLINIC 90 Tablet 3 4 Active Additional Information Patient not taking.Reported on 03/12/2024 Furosemide 20 MG Oral Tablet (Lasix)Indications: HTN, goal below 130/80,Chronic diastolic heart failure (HCC),Localized edema Take 2 Tablets by mouth in the morning. In the morning.. 180 Tablet 2 4 Active Breztri Aerosphere 160-9-4.8 MCG/ACT Inhalation Aerosol (Budeson-Glycopyrro l-Formoterol)Indica tions:COPD, group D, by GOLD 2017 classification ([facility]) Inhale 2 Puffs by mouth in the morning and 2 Puffs before bedtime. 32.1 g 3 4 Active ProAir HFA 108 (90 Base) MCG/ACT Inhalation Aerosol SolutionIndications :COPD, group D, by GOLD 2017 classification ([facility]) Inhale 2 Puffs by mouth every 4 hours as needed for Cough, Shortness of Breath or Wheezing. 54 g 3 4 Active predniSONE 10 MG Oral Tablet (Deltasone) Take 5 tabs for 2 days, 4 tabs for 2 days, 3 tabs for 2 days, 2 tabs for 2 days 1 tab for 2 days 30 Tablet 4 Active Sotalol HCl 80 MG Oral Tablet (Betapace)Indicatio ns:Paroxysmal atrial fibrillation (HCC) TAKE 1 TABLET TWICE A DAY 180 Tablet 3 4 Active Sotalol HCl 80 MG Oral Tablet (Betapace)Indicatio ns:Paroxysmal atrial fibrillation (HCC) TAKE 1 TABLET TWICE A DAY 180 Tablet 1 4 04/09/20 24 Discontinued documented as of this encounter (statuses as of 04/09/2024) Active Problems Problem Noted Date Diagnosed Date Chronic respiratory failure with hypoxia 024 COPD, group D, by GOLD 2017 classification 05/16 Overview: Per COPD GOLD Classification Bladder mass 01/05/2022 Ureteral lesion, [place], right 01/05/2022 Chronic diastolic heart failure 07/01/2021 Pulmonary hypertension 07/01/2021 Lung nodule 07/01/2021 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 Change to toprol. Start xarelto. 2007? converted with IV diltiazem Routine general medical exam ination at a health care facility 09/05/2013 Overview: 02/26 TTE [facility] normal EF Grade II Ghosh DYs, mild LVH, elev PAP 42, mil-mod TR, mild MR 07/28 6MWT 85%.--declined O2. (does she use at night?). Also microalb+ need repeat. 01/24 CT chest nodules--pulm ordered PET. 09/24 CT thigh=---noted 3cm left adnexal complex cyst, also 1+ cm bladder mass. DECLINES vaccines, breast screen. 02/16 NANAMARIA WNL Rhinitis, nonallergic 10/15/2012 Dyslipidemia 09/10/2010 HTN, goal below 130/80 04/23/2009 Overview: Modified per HTN protocol #16. Abnormal mammogram 10/09/2008 Overview: Ca since 2008 MXr 11/02 - Birad 4 A, refused bx Ovarian cyst 10/09/2008 Tobacco use disorder 05/20/2008 Overview: 10 cigarettes/day x 49 years Smoker unmotivated to quit documented as of this encounter (statuses as of 04/09/2024) Resolved Problems Problem Noted Date Diagnosed Date [...] as of this encounter (statuses as of 04/09/2024) Immunizations Name Administration Dates Next Due COVID-19 mRNA, LNP-s, No Pre serve, 2-Dose Series ([place]-8) 01/26/2022,03/08/2021,08/20/2020,07/30 Pneumococcal Polysaccharide PPV23 (Pneumovax) 05/13/2009 Seasonal [...] encounter Miscellaneous Notes * Telephone Encounter - Khoa Bill MD - 04/09/2024 9:06 PM ESTSigned Prescriptions: Disp Refills Sotalol HCl 80 MG Oral Tablet (Betapace) 180 Ta*3 Sig: TAKE 1 TABLET TWICE A DAY Authorizing Provider: KHOA BILL * Telephone Encounter - Holly Mariscal RP - 04/09/2024 3:23 PM ESTPending Prescriptions: Disp Refills Sotalol HCl 80 MG Oral Tablet [Pharmacy Me*180 Ta*3 Sig: TAKE 1 TABLET TWICE A DAY * Telephone Encounter - Holly Mariscal RPh - 04/09/2024 3:23 PM EST Unable to authorize medication refills for pended medication(s) at this time. Part of the protocol criteria used for refill authorization was not satisfied. Patient needs an EKG on file yearly. Please approve if appropriate. Thanks, Holly Mariscal Clinical Pharmacist [facility] [phone] 04/09/2024, 3:23 PM * Telephone Encounter - Holly Mariscal RPh - 04/09/2024 3:23 PM EST Did you pend patient's preferred pharmacy and medication before forwarding?yes Pharmacy: [id number] Pending Prescriptions: Disp Refills Sotalol HCl 80 MG Oral Tablet (Betapace) *180 Ta*3 Sig: TAKE 1 TABLET TWICE A DAY Last Visit: 03/12/2024 (in office), 10/05/2021 (telemedicine) Next Visit: 08/30/2024 If no future appointments scheduled, and last appointment is greater than a year ago, please schedule patient for a follow-up appointment Last date the medication was ordered: 10/03/23 Is this request for a controlled substance?No Urine Drug Screen:No results found. However, due to the size of the patient record, not all encounters were searched. Please check Results Review for a complete set of results. Patient Phone Numbers Labs: Lab Results Component Value Date/Time CREAT 0.9 07/12/2023 01:07 PM CREAT 0.9 02/07/2020 04:12 PM POTASSIUM 4.1 07/12/2023 01:07 PM POTASSIUM 3.7 02/07/2020 04:12 PM TSH 6.31 (H) 07/25/2022 01:56 PM TSH 3.08 03/27/2019 02:11 PM LDL 76 07/12/2023 01:07 PM LDL 70 02/07/2020 04:12 PM LDL NOT APPLICABLE 02/07/2020 04:12 PM ALT 18 03/09/2021 08:08 AM ALT 14 02/07/2020 04:12 PM HGBA1C 6.1 (H) 07/25/2022 01:56 PM HGBA1C 6.1 (H) 02/07/2020 04:10 PM documented in this encounter Plan of Treatment Upcoming Encounters Date Type Department Care Team (Late st Contact Info) Description 04/15/2024 5:40 PM EST Anticoagulation Pharmacy, [facility] [address] [facility] [place] [address] Pharmacist1, [facility] [address] [facility] [place] [address] 04/30/2024 5:40 PM EST Anticoagulation Pharmacy, [facility] [address] [facility] [place] [address] Pharmacist1, [facility] [address] [facility] [place] [address] 05/17/2024 12:30 PM EST Imaging Radiology [facility] 1st Floor, [place] [address] [place] [address] 05/20/2024 12:40 PM EST Office Visit Pulmonary Medicine, [facility] [address] [facility] [place] [address] Segundo Clarke MD [address] [place] [address] 08/30/2024 12:20 PM EDT Office Visit [facility] [address] [place] [address] Khoa Bill MD [address] [place] [address] 03/18/2025 1:40 PM EDT Office Visit [facility] [address] [place] [address] Khoa Bill MD [address] [place] [address] Health Maintenance Due Date Last Done Comments [...] Diagnosis Paroxysmal atrial fibrillation (HCC) Atrial fibrillation documented in this encounter Advance Directives Documents on File Type Date Recorded Patient Egg Crater Expl anation Power of Child Protective Investigator 03/20/2024 signed on 02/02/2022 * Full Code [...] Advance Directives occurred with: Patient Care Teams Sales Administration Specialist Relationship Specialty Start Date End Date Khoa Bill MD [address] [place] [address] PCP - General Family Medicine 05/19/14 documented as of this encounter
--- OUTSIDE RECORDS SUMMARY | 2024-05-03 09:15 | External Medical Summary | Summary of Care ---
Author Name Unknown Organization [facility] Address [address] [place] [address] Phone [phone] Care Team Providers Care Failure Analysis Engineer Name Role Phone Khoa Hui MD Primary Care Provider + Reason for Visit * Reason Onset Date Comments Advice 04/15/2024 Encounter Details Date Type Department Care Team (Late st Contact Info) Description 04/15/2024 Telephone Family Practice [facility] [address] [facility] [place] [address] Khoa Hui MD [address] [facility] [place] [address] Advice [...] Nasal Solution (Astelin)Indicatio ns:Rhinitis, nonallergic Administer 1 [place] into nostril in the morning and 1 [place] before bedtime. 90 mL 3 04/05/20 23 Active Isosorbide Mononitrate ER 30 MG Oral Tablet Extended Release 24 Hour (Imdur)Indications :CAD in [place] artery Take 1 Tablet by mouth in the morning. 90 Tablet 3 07/05/19 24 Active Nitroglycerin 0.4 MG Sublingual Tablet Sublingual (Nitrostat)Indicat ions:CAD in [place] artery Place 1 Tablet under the tongue [...] cations:COPD, group D, by GOLD 2017 classification ([facility]) Inhale 2 Puffs by mouth in the morning and 2 Puffs before bedtime. 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 Change to toprol. Start xarelto. 2007? converted with IV diltiazem Routine general medical exam ination at a health care facility 09/05/2013 Overview (02/22/2024): 02/26 TTE [facility] [...] No 02/03/2023 Does the household have a [facility] hospitallar source of income? (Household - for ages [...] Miscellaneous Notes * Telephone Encounter - Tamera Aragon OSA - 04/17/2024 9:49 AM EST An with [facility] calling needs new script for nebulizer, unable to see ordering provider. Also needs chart notes supporting diagnosis. Medication will need sent to pharm for nebulizer. They do not carry the medications [facility] * Telephone Encounter - Florence Smith LPN [...] him after that. Will fax Nebulizer to [facility], albuterol to [facility] * Telephone Encounter - Minoo Bernard LPN - 04/16/2024 1:35 PM EST HH Concerns Reanna RN, Calling from: [employer] Report/Concerns of: SOB Symptoms: sob- at rest [...] addressed, please. * Telephone Encounter - Florence Smiht LPN - 04/16/2024 10:25 AM EST Left message for Debra to call dedicated nurse line. * Telephone Encounter - Shelly Teran OSA - 04/15/2024 2:47 PM EST Reason for patient's call: Reanna from [facility] asking to speak with a nurse. Caller was transferred to at the nurse line. Please return call to [phone]. documented in this encounter Plan of Treatment Upcoming Encounters Date Type Department Care Team (Late st Contact Info) Description 04/30/2024 5:40 PM EST Anticoagulation Pharmacy, [facility] [address] [facility] [place] [address] Pharmacist1, [facility] [address] [facility] [place] [address] 05/17/2024 12:30 PM EST [facility] [address] [place] [address] 05/20/2024 12:40 PM EST Office Visit Pulmonary Medicine, [facility] [address] [facility] [place] [address] Segundo Clarke MD [address] [facility] [address] 08/30/2024 12:20 PM EDT Office Visit Family Practice [facility] [address] [place] [address] Khoa Hui MD [address] [place] [address] 03/18/2025 1:40 PM EDT Office Visit Family Practice [facility] [address] [place] [address] Khoa Hui MD [address] [place] [address] Health Maintenance Due Date Last Done Comments [...] Documents on File Type Date Recorded Patient Manager Security Expl anation Power of Platen Grinder 03/20/2024 signed on 02/02/2022 * Full Code [...] Advance Directives occurred with: Patient Care Teams Failure Analysis Engineer Relationship Specialty Start Date End Date Khoa Hui MD [address] [place] [address] PCP - General Family Medicine 05/19/14 documented as of this encounter
--- OUTSIDE RECORDS SUMMARY | 2024-05-03 09:15 | External Medical Summary | Summary of Care ---
Author Name Unknown Organization [facility] Address [address] [place] [address] Phone [phone] Care Team Providers Care Software Support Engineer Name Role Phone Khoa Hui MD Primary Care Provider + Reason for Visit * Reason Comments Dosage Adjustment Via Phone (anticoag Cl inic) Encounter Details Date Type Department Care Team (Latest Contact Info) Description 03/22/2024 5:40 PM EDT Anticoagulation Pharmacy, [facility] [address] [facility] [place] [address] Pharmacist2, [facility] 200 [place] [address] Paroxysmal atrial fibrillation (HCC)* Allergies Active Allergy [...] as of this encounter (statuses as of 03/22/2024) Medications Medication Sig Dispensed Refills Start Date End Date Status Aspirin EC 81 MG Oral Tablet Delayed Release Take 1 Tablet by mouth in the morning. 01/21/2022 Active Azelastine HCl 0.1 % Nasal Solution (Astelin)Indications :Rhinitis, nonallergic Administer 1 [place] into nostril in the morning and 1 [place] before bedtime. 90 mL 3 04/05/2023 Active Isosorbide Mononitrate ER 30 MG Oral Tablet Extended Release 24 Hour (Imdur)Indications:C AD in [place] artery Take 1 Tablet by mouth in the morning. 90 Tablet 3 07/05/2023 Active Nitroglycerin 0.4 MG Sublingual Tablet Sublingual (Nitrostat)Indicatio ns:CAD in [place] artery Place 1 Tablet under the tongue [...] group D, by GOLD 2017 classification ([facility]) Inhale 2 Puffs by mouth in the morning and 2 Puffs before bedtime. 32.1 g 3 02/21/2024 Active ProAir HFA 108 (90 Base) MCG/ACT Inhalation Aerosol SolutionIndications: COPD, group D, by GOLD 2017 classification ([facility]) Inhale 2 Puffs by mouth every 4 hours as needed for Cough, Shortness of Breath or Wheezing. 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 Change to toprol. Start xarelto. 2007? converted with IV diltiazem Routine general medical exam ination at a health care facility 09/05/2013 Overview: 02/26 TTE [facility] normal EF Grade II Ghosh [...] as of this encounter (statuses as of 03/22/2024) Resolved Problems Problem Noted Date Diagnosed Date [...] as of this encounter (statuses as of 03/22/2024) Immunizations Name Administration Dates Next Due COVID-19 [...] as of this encounter Progress Notes * Phong Downs, [facility] - 03/22/2024 12:26 PM EDT Images from the original note were not included. Medication Therapy Disease Management - Anticoagulation Patient: Lila Rolle | : 1945 Subjective Contacts Contact Date/Time Type Contact Phone/Fax 03/22/2024 11:35 AM EDT Phone (Incoming) [facility] [phone] 03/22/2024 12:30 PM EDT Phone (Outgoing) Reanna Perez [facility] [phone] Patient-Reported Symptoms: Patient Findings Negatives: Signs/symptoms of thrombosis, Signs/symptoms of bleeding, Change in health, Change in alcohol use, Change in activity, Upcoming invasive procedure, Missed doses, Extra doses, Change in medications, Change in diet/appetite, Bruising Comments: Per nurse Objective Current Warfarin Dose As of 03/22/2024 Warfarin maintenance plan: 1.25 mg (2.5 mg x 0.5) every Tue, Brenda, Sat; 2.5 mg (2.5 mg x 1) all other days INR Result As of 03/22/2024 INR goal: 2.0-3.0 INR used for dosin.3 (03/22/2024) Assessment & Plan Warfarin Plan As of 03/22/2024 Full warfarin instructions: 1.25 mg every Tue, Brenda, Sat; 2.5 mg all other days Next INR check: 04/02/2024 Repeat PT/INR in 1.5 week(s) Order faxed to [facility] (FAX: [phone]) Weekly dose: decreased Additional Dosing Information: Description Given patients aversion to self injections and lower predicted risk Per Cardiology (see 01/13/22 note) okay with NO lovenox bridge. I spent a total of 10-19 minutes (exact time 12 mins) on the date of service in preparation, delivery, and documentation of the care provided to Lila Rolle excluding any time spent in the performanceof separately billed services or time spent by another provider/QHP. Phong Downs [facility] Clinical Pharmacist 03/22/2024, 12:26 PM * Tiana Copeland hospice manager - 03/22/2024 11:36 AM EDT Caller's name: Reanna Preferred call back number(OFFICE NUMBER FOR ): [phone] Reason for call: nursing facility, [facility] , calling with INR results. Result is 3.3 which was drawn on 03/22. Patient is not being discharged. Tiana Copeland Fuse Cup Expander [facility] [address] [place] [address] Dr. Leroy [address] [place] [address] [id number] 03/22/2024,11:36 AM documented in this encounter Plan of Treatment Upcoming Encounters Date Type Department Care Team (Late st Contact Info) Description 04/02/2024 5:40 PM EDT Anticoagulation Pharmacy, [facility] [address] [facility] [address] [place] [address] Pharmacist1, [facility] 200 [facility] [place] [address] 04/26/2024 10:30 AM EST Office Visit Cardiology, [facility] [address] [facility] [place] [address] Kely Pepper PA-C [address] [place] [address] 05/17/2024 12:30 PM EST Imaging Radiology [place] [facility] [address] [place] [address] 05/20/2024 12:40 PM EST Office Visit Pulmonary Medicine, [facility] [address] [place] [address] Segundo Clarke MD [address] [place] [address] 08/30/2024 12:20 PM EDT Office Visit [facility] [address] [place] [address] Khoa Hui MD [address] [place] [address] 03/18/2025 1:40 PM EDT Office Visit [facility] [address] [place] [address] Khoa Hui MD [address] [place] [address] Health Maintenance Due Date Last Done Comments [...] Date/Time Associated Diagnosis Comments OUTSIDE LAB-PT/INR Routine 03/22/2024 documented in this encounter Results * OUTSIDE LAB-PT/INR (03/22/2024) INR-OUTSIDE LAB 3.3 03/22/2024 History Per Patient LABORATORY documented in this encounter Visit Diagnoses Diagnosis Paroxysmal atrial fibrillation (HCC)- Primary Atrial fibrillation documented in this encounter Advance Directives Documents on File Type Date Recorded Patient Bread Baker Expl anation Power of Press Pipe Inspector 03/20/2024 signed on 02/02/2022 * Full Code [...] Advance Directives occurred with: Patient Care Teams Software Support Engineer Relationship Specialty Start Date End Date Khoa Hui MD [address] [place] [address] PCP - General Family Medicine 05/19/14 documented as of this encounter"
--- OUTSIDE RECORDS SUMMARY | 2024-05-03 09:15 | External Medical Summary | Summary of Care ---
Author Name Unknown Organization [facility] Address [address] [address] Phone [phone] Care Team Providers Care Inventory Associate And Driver Name Role Phone Khoa uHi MD Primary Care Provider + Reason for Visit * Reason Onset Date Comments Order Request 04/10/2024 Encounter Details Date Type Department Care Team (Late st Contact Info) Description 04/10/2024 Telephone [facility] Services, [facility] [address] [place] [address] [place] [address] Pharmacist1, [facility] [address] [facility] [place] [address] Order Request Allergies Active Allergy Reactions Criticality [...] as of this encounter (statuses as of 04/10/2024) Medications Medication Sig Dispensed Refills Start Date End Date Status Aspirin EC 81 MG Oral Tablet Delayed Release Take 1 Tablet by mouth in the morning. 01/21/2022 Active Azelastine HCl 0.1 % Nasal Solution (Astelin)Indications :Rhinitis, nonallergic Administer 1 [place] into nostril in the morning and 1 [place] before bedtime. 90 mL 3 04/05/2023 Active Isosorbide Mononitrate ER 30 MG Oral Tablet Extended Release 24 Hour (Imdur)Indications:C AD in [place] artery Take 1 Tablet by mouth in the morning. 90 Tablet 3 07/05/2023 Active Nitroglycerin 0.4 MG Sublingual Tablet Sublingual (Nitrostat)Indicatio ns:CAD in [place] artery Place 1 Tablet under the tongue every 5 minutes as needed for Pain, Chest. 25 Tablet 3 07/05/2023 Active Spironolactone 25 MG Oral Tablet (Aldactone)Indicatio ns:HTN, goal below 130/80,Chronic diastolic heart failure (HCC),Localized edema TAKE 1 TABLET IN THE MORNING 90 Tablet 3 09/05/2023 Active Warfarin Sodium 2.5 MG Oral Tablet [...] ons:COPD, group D, by GOLD 2017 classification ([facility]) Inhale 2 Puffs by mouth in the morning and 2 Puffs before bedtime. 32.1 g 3 02/21/2024 Active ProAir HFA 108 (90 Base) MCG/ACT Inhalation Aerosol SolutionIndications: COPD, group D, by GOLD 2017 classification ([facility] [...] for 2 days 30 Tablet 04/05/2024 Active Sotalol HCl 80 MG Oral Tablet (Betapace)Indication s:Paroxysmal atrial fibrillation (HCC) TAKE 1 TABLET TWICE A DAY 180 Tablet 3 04/09/2024 Active documented as of this encounter (statuses as of 04/10/2024) Active Problems Problem Noted Date Diagnosed Date Chronic respiratory failure with hypoxia 024 COPD, group D, by GOLD 2017 classification 05/16 Overview: Per COPD GOLD Classification Bladder mass 01/05/2022 Ureteral lesion, [place], right 01/05/2022 Chronic diastolic heart failure 07/01/2021 Pulmonary hypertension 07/01/2021 Lung nodule 07/01/2021 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 10/25/2018 Prediabetes 07/31/2018 Elevated TSH 07/31/2018 CAD in [place] artery 03/20/2015 Venous insufficiency 03/12/2014 Overview: 03/18 --no DVT LLE Paroxysmal atrial fibrillation 02/04/2014 Overview: 01/16-[facility] hosp w/rapid response. Change to toprol. Start xarelto. 2007? converted with IV diltiazem Routine general medical exam ination at a health care facility 09/05/2013 Overview: 02/26 TTE [facility] normal EF Grade II Ghosh DYs, mild [...] as of this encounter (statuses as of 04/10/2024) Resolved Problems Problem Noted Date Diagnosed Date [...] as of this encounter (statuses as of 04/10/2024) Immunizations Name Administration Dates Next Due COVID-19 mRNA, LNP-s, No Pre serve, 2-Dose Series ([employer]) 01/26/2022,03/08/2021,08/20/2020,07/30 Pneumococcal Polysaccharide PPV23 (Pneumovax) 05/13/2009 Seasonal [...] encounter Miscellaneous Notes * Telephone Encounter - Melinda Pereira RPh - 04/10/2024 3:47 PM EST Orders refaxed to requested fax number. Melinda Pe[facility], [facility] [place] 04/10/2024, 3:47 PM * Telephone Encounter - Ami Ozuna PHARM Tech - 04/10/2024 3:31 PM EST Caller's name: [facility] [employer] Preferred call back number(OFFICE NUMBER FOR HH): [phone] Reason for call: Marybeth obregon [employer] calling in asking if new orders for patient can be faxedover to them at [phone] Thank you, Lorne Ozuna Sign Board Erector [facility] ([facility]) 04/10/2024, 3:31 PM documented in this encounter Plan of Treatment Upcoming Encounters Date Type Department Care Team (Late st Contact Info) Description 04/15/2024 5:40 PM EST Anticoagulation Pharmacy, [facility] [address] [place] [address] Pharmacist1, [facility] [address] [facility] [place] [place] [address] 04/30/2024 5:40 PM EST Anticoagulation Pharmacy, [facility] [address] [place] [address] Pharmacist1, [facility] [address] [facility] [place] [address] 05/17/2024 12:30 PM EST Imaging Radiology [facility] [address] [facility] [place] [address] 05/20/2024 12:40 PM EST Office Visit Pulmonary Medicine, [facility] [address] [facility] [place] [address] Segundo Clarke MD [address] [place] [address] 08/30/2024 12:20 PM EDT Office Visit Family Practice [facility] [address] [facility] [place] [address] Khoa Hui MD 132 [facility] [place] [address] 03/18/2025 1:40 PM EDT Office Visit Family Practice [facility] [address] [place] [address] Khoa Hui MD [address] [facility] [place] [address] Health Maintenance Due Date Last Done Comments [...] Documents on File Type Date Recorded Patient Direct Marketing Specialist Expl anation Power of Supervisor Plate Pasting 03/20/2024 signed on 02/02/2022 * Full Code [...] Advance Directives occurred with: Patient Care Teams Inventory Associate And Driver Relationship Specialty Start Date End Date Khoa Hui MD [address] [facility] [place] [address] PCP - General Family Medicine 05/19/14 documented as of this encounter
--- OUTSIDE RECORDS SUMMARY | 2024-05-03 09:15 | External Medical Summary | Summary of Care ---
Author Name Unknown Organization [facility] Address [address] [place] [address] Phone [phone] Care Team Providers Care Card Dealer Name Role Phone Khoa Hui MD Primary Care Provider + Reason for Visit * Reason Comments Hospital Follow-Up Encounter Details Date Type Department Care Team (Latest Contact Info) Description 03/12/2024 1:00 PM EDT Office Visit Family Practice [facility] [address] [place] [address] Khoa Hui MD [address] [place] [address] Syncope and collapse*; Elevated glucose; Hematoma of left lower leg; Paroxysmal atrial fibrillation (HCC); HTN, goal below 130/80; Pulmonary hypertension (HCC); COPD, group D, by GOLD 2017 classification (HCC); Chronic respiratory failure with hypoxia (HCC) Allergies Active Allergy Reactions Criticality Noted [...] Nasal Solution (Astelin)Indications :Rhinitis, nonallergic Administer 1 [place] into nostril in the morning and 1 [place] before bedtime. 90 mL 3 04/05/2023 Active Isosorbide Mononitrate ER 30 MG Oral Tablet Extended Release 24 Hour (Imdur)Indications:C AD in [place] artery Take 1 Tablet by mouth in the morning. 90 Tablet 3 07/05/2023 Active Nitroglycerin 0.4 MG Sublingual Tablet Sublingual (Nitrostat)Indicatio ns:CAD in [place] artery Place 1 Tablet [...] health care facility 09/05/2013 Overview: 02/26 TTE [facility] normal EF Grade II Ghosh DYs, [...] mRNA, LNP-s, No Pre serve, 2-Dose Series ([employer]) 01/26/2022,03/08/2021,08/20/2020,07/30 Pneumococcal Polysaccharide PPV23 (Pneumovax) 05/13/2009 [...] Sign Reading Time Taken Comments Blood Pressure 106/60 03/12/2024 1:06 PM EDT Pulse 84 03/12/2024 1:06 PM EDT Temperature 36.5 C (97.7 F) 03/12/2024 1 :06 PM EDT Respiratory Rate 18 03/12/2024 1:06 PM EDT Oxygen Saturation - - Inhaled Oxygen Concentration - - Weight 57.2 kg (126 lb) 04/05/2024 8:12 AM EDT Done on 04/05 on at home scale Height - - Body Mass Index 20.97 02/19/2024 12:58 PM EDT documented in this encounter Progress Notes * Khoa Hui MD - 03/12/2024 2:14 PM EDT SUBJECTIVE: Lila Rolle is a 79 year old female here for Hospital Follow-Up . Here for hosp f/u 03/02/24-03/05/24. With daughter Jo Ann Sabillon. Had what sounds like syncope at home, had a fall. She remembers bringing her pizza and drink to the living room set it down on the table, and then does not recall what happened but woke up with a chair on top of her and she had fallen and hurt her leg. She also noted to have some increased difficulty with her baseline COPD and respiratory failure, had started outpatient antibiotics for cellulitis left leg prior to admission. Both legs have been more swollen than usual. In the hospital she was placed on telemetry, ACS ruled out, required 3 L to maintain her saturation. Acute on diastolic chronic heart failure and COPD exacerbation suspected. Received nebs, oral prednisone and oral doxycycline. Clinically a little improved. PT recommended rehab Hospital which she refused. Was discharged home with home health and PT/OT which will be coming twice a week it sounds like. She had a large hematoma on the posterior side of her left calf 7 x 6 x 3-1/2 cm. Quite swollen. She was on warfarin. Warfarin was held. Ortho evaluated and recommended against doing a drainage due to risk of infection. Her hemoglobin dropped to 10.4. She was continued on doxycycline for lower extremity cellulitis. Bactrim was not continued. Has known lung nodule likely malignancy on PET scan. Patient declined further workup. She had an A1c of 6.6 but I believe this is after having steroids. Previous A1c was in the prediabetes range. Patient reports that she filled out Healthcare proxy and living will forearms about a year or 2 ago. I do not have a copy of this. She states both of her daughters are able to make healthcare decisions for her and they both know her wishes that she does not want to have his feeding tube or at any time be intubated. ROS: Negative except above. Past Medical History: Diagnosis Date Angioedema 07/16/2012 Atrial fibrillation (HCC) 05/20/2008 converted with IV diltiazem CAD (coronary artery disease) COPD (chronic obstructive pulmonary disease) ([facility]) COPD, moderate (HCC) 05/08/2013 emphysema Dyslipidemia, goal LDL below 100 09/10/2010 Elevated TSH 07/31/2018 Emphysema 05/08/2013 HTN, goal below 140/90 Kidney disease, chronic, stage III (GFR 30-59 ml/min) ([facility]) 07/29/2013 Per CKD protocol #1 Lung nodule Ovarian cyst 10/09/2008 Paroxysmal atrial fibrillation (HCC) 02/04/2014 Prediabetes 07/31/2018 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 10/25/2018 Pulmonary arterial hypertension (HCC) Smoker unmotivated to quit Tobacco use disorder Ureteral cancer, right (HCC) 03/10/2022 Venous insufficiency 03/12/201403/18 US --no DVT LLE Past Surgical History: Procedure Laterality Date CARDIAC CATH-CARDIOLOGY ONLY 10/09/2018 Dr Naqvi/Dr Marquez--[facility]-1 AME in mid RCA CYSTOSCOPY 06/14/2022 Dr Kenny--no tumor recurrence CYSTOSCOPY/TREAT SML BLADDER TUMOR N/A 2022 CYSTOURETHROSCOPY WITH FULGURATION SMALL BLADDER TUMOR performed by Sánchez Kenny MD at OR [facility] DEFIB/CARDIOVERSION 10/18/2018 for rapid afib [facility]. 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 Vaping Use Vaping status: Never Used Substance and Sexual Activity Alcohol use: Yes Comment: occasionally Drug use: No Sexual activity: Not Currently Partners: Male Comment: 2 daughters Other Topics Concern Service Not Asked Blood [...] time w/2 local grandkids and others in [place]. 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 Entered [...] Stability Do you currently live in a mcfp or have no steady place to sleep [...] Current Outpatient Medications Medication Sig Dispense Refill Aspirin EC 81 MG Oral Tablet Delayed Release Take 1 Tablet by mouth in the morning. Azelastine HCl 0.1 % Nasal Solution (Astelin) Administer 1 [place] into nostril in the morning and 1 [place] before bedtime. 90 mL 3 Isosorbide Mononitrate ER 30 MG Oral Tablet Extended Release 24 Hour (Imdur) Take 1 Tablet by mouthin the morning. 90 Tablet 3 Spironolactone 25 MG Oral Tablet (Aldactone) TAKE 1 TABLET IN THE MORNING 90 Tablet 3 Sotalol HCl 80 MG Oral Tablet (Betapace) TAKE 1 TABLET TWICE A DAY 180 Tablet 1 Furosemide 20 MG Oral Tablet (Lasix) Take 2 Tablets by mouth in the morning. In the morning.. 180 Tablet 2 Breztri Aerosphere 160-9-4.8 MCG/ACT Inhalation Aerosol (Jheuwoi-Gcuzecwrxkd-Mndvmqtptx) Inhale 2 Puffs by mouth in the morning and 2 Puffs before bedtime. 32.1 g 3 ProAir HFA 108 (90 Base) MCG/ACT Inhalation Aerosol Solution Inhale 2 Puffs by mouth every 4 hours as needed for Cough, Shortness of Breath or Wheezing. 54 g 3 Nitroglycerin 0.4 MG Sublingual Tablet Sublingual (Nitrostat) Place 1 Tablet under the tongue every5 minutes as needed for Pain, Chest. 25 Tablet 3 Warfarin Sodium 2.5 MG Oral Tablet (Coumadin) TAKE 1 TABLET DAILY [facility] (Patient not taking: Reported on 03/12/2024) 90 Tablet 3 No current facility-administered medications for this visit. Physical: BP 106/60 | Pulse 84 | Temp 36.5 C (97.7 F) | Resp 18 | Wt 63 kg (139 lb) | BMI 23.13 kg/m | BSA 1.7 m General-No apparent Distress Head, Eyes, Ears, Nose, Throat--Normocephalic, atraumatic Neck-Supple Lymph-no lymphadenopathy Lungs-distant breath sounds b/l no rales no wheeze Cardiovascular--Regular rate & Rhythm, +s1, s2, no murmur Abdomen-soft, nontender, nondistended + bowel sounds Extremities--+edema b/l legs L>R +large hematoma left calf with oozing serosanginous fluid. Bandage partially soaked. Mild redness left calf Neuro-alert & oriented x3 (R55) Syncope and collapse (primary encounter diagnosis) Plan: unclear etiology. Consider Zio--pt declined for now F/u cardiology Hx hypotension but not on HTN meds (R73.09) Elevated glucose Plan: preDM suspected rather than DM. At any rate, wants to limit interventions, so will monitor (S80.12XA) Hematoma of left lower leg Plan: discussed high risk of infection --already on doxy, ortho rec against I&D due to very high risk of infection w/that. (I48.0) Paroxysmal atrial fibrillation (HCC) Plan: spent long time discussing pros/cons warfarin, pt elects restart f/u MTM for INR (I10) HTN, goal below 130/80 Plan: not on meds. (I27.20) Pulmonary hypertension (HCC) Plan: contibuting to her edema (J44.9) COPD, group D, by GOLD 2017 classification (HCC) Plan: cont Oxygen. Pt hasn't received her inhalers-she will call [facility] (J96.11) Chronic respiratory failure with hypoxia (HCC) Plan: as above. I spent a total of Greater than 55 mins (exact time 57 mins) on the date of service in [...] documented in this encounter Nursing Notes * Mary Donnelly, ICE CREAM MIXER - 03/12/2024 1:02 PM EDT Pt states that she is feeling lousy Has left leg bandaged & wrapped - is seeping documented in this encounter Plan of Treatment Upcoming Encounters Date Type Department Care Team (Late st Contact Info) Description 04/15/2024 5:40 PM EST Anticoagulation Pharmacy, [facility] [address] [facility] [place] [address] Pharmacist1, [facility] [address] [facility] [place] [address] 05/17/2024 12:30 PM EST [facility] [address] [place] [address] 05/20/2024 12:40 PM EST Office Visit Pulmonary Medicine, [facility] [address] [place] [address] Segundo Clarke MD [address] [place] [address] 08/30/2024 12:20 PM EDT Office Visit Family Practice [facility] [address] [address] Khoa Hui MD [address] [address] 03/18/2025 1:40 PM EDT Office Visit Family Practice [facility] [address] [address] Khoa Hui MD [address] [address] Health Maintenance Due Date Last Done Comments [...] as of this encounter Visit Diagnoses Diagnosis Syncope and collapse- Primary Elevated glucose Other abnormal glucose Hematoma of left lower leg Paroxysmal atrial fibrillation (HCC) Atrial fibrillation HTN, goal below 130/80 Unspecified essential hypertension Pulmonary hypertension (HCC) Other chronic pulmonary heart diseases COPD, group D, by GOLD 2017 classification (HCC) Chronic respiratory failure with hypoxia (HCC) Chronic respiratory failure documented in this encounter Advance Directives Documents on File Type Date Recorded Patient Research Tech Expl anation Power of Industrial Furnace Fabricator 03/20/2024 signed on 02/02/2022 * Full Code [...] Advance Directives occurred with: Patient Care Teams Card Dealer Relationship Specialty Start Date End Date Khoa Hui MD [address] [place] [address] PCP - General Family Medicine 05/19/14 documented as of this encounter"
--- OUTSIDE RECORDS SUMMARY | 2024-05-03 09:15 | External Medical Summary | Summary of Care ---
Author Name Unknown Organization [facility] Address [address] [place] [address] Phone [phone] Care Team Providers Care Transportation Clerk Name Role Phone Khoa Hui MD Primary Care Provider + Reason for Visit * Reason Onset Date Comments Advice 04/15/2024 Encounter Details Date Type Department Care Team (Late st Contact Info) Description 04/15/2024 Telephone Family Practice [facility] [address] [facility] [place] [address] Khoa Hui MD [address] [facility] [place] [address] Advice Allergies Active Allergy [...] Nasal Solution (Astelin)Indicatio ns:Rhinitis, nonallergic Administer 1 [place] into nostril in the morning and 1 [place] before bedtime. 90 mL 3 04/05/20 23 Active Isosorbide Mononitrate ER 30 MG Oral Tablet Extended Release 24 Hour (Imdur)Indications :CAD in [place] artery Take 1 Tablet by mouth in the morning. 90 Tablet 3 07/05/19 24 Active Nitroglycerin 0.4 MG Sublingual Tablet Sublingual (Nitrostat)Indicat ions:CAD in [place] artery Place 1 Tablet under the tongue [...] cations:COPD, group D, by GOLD 2017 classification ([facility] [...] GOLD Classification Bladder mass 01/05/2022 Ureteral lesion, [place], right 01/05/2022 Chronic diastolic heart failure 07/01/2021 Pulmonary hypertension 07/01/2021 Lung nodule 07/01/2021 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 10/25/2018 Prediabetes 07/31/2018 Elevated TSH 07/31/2018 CAD in [place] artery 03/20/2015 Venous insufficiency 03/12/2014 Overview (03/12/2014): 03/18 US --no DVT LLE Paroxysmal atrial fibrillation 02/04/2014 Overview (03/28/2018): 01/16-[facility] hosp w/rapid response. Change to toprol. Start xarelto. 2007? converted with IV diltiazem Routine general medical exam ination at a health care facility 09/05/2013 Overview (02/22/2024): 02/26 TTE [facility] normal EF Grade II Ghosh DYs, [...] No 02/03/2023 Does the household have a [facility] source of income? (Household - for [...] Encounter - Florence Smith LPN - 04/17/2024 12:26 PM EST Refaxed with notes per request. Meds sent to pharmacy already. * Telephone Encounter - Tamera Aragon OSA - 04/17/2024 9:49 AM EST An with [facility] calling needs new script for nebulizer, unable to see ordering provider. Also needs chart notes supporting diagnosis. Medication will need sent to pharm for nebulizer. They do not carry the medications [facility] * Telephone Encounter - Florence [...] EST HH Concerns Reanna RN, Calling from: [place] Gamaliel Report/Concerns of: SOB Symptoms: sob- at rest [...] EST Reason for patient's call: Reanna from [facility] asking to speak with a nurse. Caller was transferred to at the nurse line. Please return call to [phone]. documented in this encounter Plan of Treatment Upcoming Encounters Date Type Department Care Team (Late st Contact Info) Description 04/30/2024 5:40 PM EST Anticoagulation Pharmacy, [facility] [address] [facility] [place] [address] Pharmacist[address], [facility] 200 [facility] [place] [address] 05/17/2024 12:30 PM EST Imaging Radiology [facility] 1st Floor, [place] [address] [facility] [place] [address] 05/20/2024 12:40 PM EST Office Visit Pulmonary Medicine, [facility] [address] [facility] [place] [address] Segundo Clarke MD [address] [facility] [place] [address] 08/30/2024 12:20 PM EDT Office Visit Family [facility] [address] [facility] [place] [address] Khoa Hui MD [address] [place] [address] 03/18/2025 1:40 PM EDT Office Visit [facility] [address] [place] [address] Khoa Hui MD [address] [place] [id number] Health Maintenance Due Date Last Done Comments [...] Documents on File Type Date Recorded Patient Electronic Intelligence Officer Expl anation Power of Cost Reduction Engineer 03/20/2024 signed on 02/02/2022 * Full Code [...] Advance Directives occurred with: Patient Care Teams Transportation Clerk Relationship Specialty Start Date End Date Khoa Hui MD [address] [place] [address] PCP - General Family Medicine 05/19/14 documented as of this encounter
--- OUTSIDE RECORDS SUMMARY | 2024-05-03 09:16 | External Medical Summary | Summary of Care ---
Author Name Unknown Organization [facility] Address [address] [place] [address] Phone [phone] Care Team Providers Care Rn Outpatient Surgery Name Role Phone Khoa Hui MD Primary Care Provider + Reason for Visit * Reason Comments Dosage Adjustment Via Phone (anticoag Cl inic) Encounter Details Date Type Department Care Team (Latest Contact Info) Description 03/11/2024 5:10 PM EDT Anticoagulation Pharmacy, [facility] 200 [facility] [place] [address] Pharmacist2, [facility] [address] [facility] [place] [address] Paroxysmal atrial fibrillation (HCC)* Allergies Active Allergy [...] as of this encounter (statuses as of 03/11/2024) Medications Medication Sig Dispensed Refills Start Date End Date Status Aspirin EC 81 MG Oral Tablet Delayed Release Take 1 Tablet by mouth in the morning. 01/21/2022 Active Azelastine HCl 0.1 % Nasal Solution (Astelin)Indications :Rhinitis, nonallergic Administer 1 [place] into nostril in the morning and 1 [place] before bedtime. 90 mL 3 04/05/2023 Active Isosorbide Mononitrate ER 30 MG Oral Tablet Extended Release 24 Hour (Imdur)Indications:C AD in [place] artery Take 1 Tablet by mouth in the morning. 90 Tablet 3 07/05/2023 Active Nitroglycerin 0.4 MG Sublingual Tablet Sublingual (Nitrostat)Indicatio ns:CAD in [place] artery Place 1 Tablet under the tongue [...] ons:COPD, group D, by GOLD 2017 classification ([facility]) Inhale 2 Puffs by mouth in the morning and 2 Puffs before bedtime. 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 10/25/2018 Prediabetes 07/31/2018 Elevated TSH 07/31/2018 CAD in [place] artery 03/20/2015 Venous insufficiency 03/12/2014 Overview: 03/18 [...] as of this encounter (statuses as of 03/11/2024) Resolved Problems Problem Noted Date Diagnosed Date [...] as of this encounter (statuses as of 03/11/2024) Immunizations Name Administration Dates Next Due COVID-19 mRNA, LNP-s, No Pre serve, 2-Dose Series ([employer]) 01/26/2022,03/08/2021,08/20/2020,07/30 Pneumococcal Polysaccharide PPV23 (Pneumovax) 05/13/2009 Seasonal [...] of this encounter Progress Notes * Phong Downs [facility] - 03/11/2024 12:12 PM EDT PCP to have follow up visit with the patient and clarify if pt is to continue with anticoagulation and if so when she should restart. MTDM will follow up with the patient 03/13/24 Phong Downs PharmD, BCACP, [facility] Clinical Pharmacist 03/11/2024, 12:13 PM documented in this encounter Plan of Treatment Upcoming Encounters Date Type Department Care Team (Late st Contact Info) Description 03/12/2024 1:00 PM EDT Office Visit Family Practice [facility] [address] [address] Khoa Hui MD [address] [place] [address] 03/13/2024 5:10 PM EDT Anticoagulation Pharmacy, [facility] [address] [facility] [place] [address] Pharmacist2, [facility] [address] [facility] [place] [place] [address] 04/26/2024 10:30 AM EST Office Visit Cardiology, Health system [address] [address] Kely Pepper PA-C [address] [place] [address] 05/17/2024 12:30 PM EST Imaging Radiology [facility] [address] [facility] [place] [address] 05/20/2024 12:40 PM EST Office Visit Pulmonary Medicine, Health system [address] [facility] [place] [address] Segundo Clarke MD [address] [place] [address] 08/30/2024 12:20 PM EDT Office Visit Family Practice [facility] [address] [facility] [place] [address] Khoa Hui MD [address] [facility] [place] [address] 03/18/2025 1:40 PM EDT Office Visit Family Practice Health system [address] [facility] [place] [address] Khoa Hui MD [address] [facility] [place] [address] Health Maintenance Due Date Last Done Comments [...] Advance Directives occurred with: Patient Care Teams Rn Outpatient Surgery Relationship Specialty Start Date End Date Khoa Hui MD [address] [place] [address] PCP - General Family Medicine 05/19/14 documented as of this encounter
--- OUTSIDE RECORDS SUMMARY | 2024-05-03 09:16 | External Medical Summary | Summary of Care ---
Author Name Unknown Organization [facility] Address [address] [place] [address] Phone [phone] Care Team Providers Care Supervisor Plastics Name Role Phone Khoa Hui MD Primary Care Provider + Reason for Visit * Reason Comments Dosage Adjustment Via Phone (anticoag Cl inic) Encounter Details Date Type Department Care Team (Latest Contact Info) Description 03/06/2024 5:40 PM EDT Anticoagulation Pharmacy, [facility] 200 [facility] [place] [address] Pharmacist2, [facility] 200 [facility] [place] [address] Paroxysmal atrial fibrillation (HCC)* Allergies Active Allergy [...] as of this encounter (statuses as of 03/06/2024) Medications Medication Sig Dispensed Refills Start Date End Date Status Aspirin EC 81 MG Oral Tablet Delayed Release Take 1 Tablet by mouth in the morning. 01/21/2022 Active Azelastine HCl 0.1 % Nasal Solution (Astelin)Indications :Rhinitis, nonallergic Administer 1 [place] into nostril in the morning and 1 [place] before bedtime. 90 mL 3 04/05/2023 Active Isosorbide Mononitrate ER 30 MG Oral Tablet Extended Release 24 Hour (Imdur)Indications:C AD in [place] artery Take 1 Tablet by mouth in the morning. 90 Tablet 3 07/05/2023 Active Nitroglycerin 0.4 MG Sublingual Tablet Sublingual (Nitrostat)Indicatio ns:CAD in [place] artery Place 1 Tablet under the tongue [...] by GOLD 2017 classification ([facility]) Inhale 2 Puffs by mouth in the morning and 2 Puffs before bedtime. 32.1 g 3 02/21/2024 Active ProAir HFA 108 (90 Base) MCG/ACT Inhalation Aerosol SolutionIndications: COPD, group D, by GOLD 2017 classification ([facility]) Inhale 2 Puffs by mouth every 4 [...] as of this encounter (statuses as of 03/06/2024) Active Problems Problem Noted Date Diagnosed Date Chronic respiratory failure with hypoxia 024 COPD, group D, by GOLD 2017 classification 05/16 Overview: Per COPD GOLD Classification Bladder mass 01/05/2022 Ureteral lesion, [place], right 01/05/2022 Chronic diastolic heart failure 07/01/2021 Pulmonary hypertension 07/01/2021 Lung nodule 07/01/2021 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 Change to toprol. Start xarelto. 2007? converted with IV diltiazem Routine general medical exam ination at a health care facility 09/05/2013 Overview: 02/26 TTE [facility] normal EF Grade II Ghosh DYs, mild [...] as of this encounter (statuses as of 03/06/2024) Resolved Problems Problem Noted Date Diagnosed Date [...] as of this encounter (statuses as of 03/06/2024) Immunizations Name Administration Dates Next Due COVID-19 mRNA, LNP-s, No Pre serve, 2-Dose Series ([employer]) 01/26/2022,03/08/2021,08/20/2020,07/30 Pneumococcal Polysaccharide PPV23 (Pneumovax) 05/13/2009 Seasonal [...] this encounter Progress Notes * Phong Downs [facility] - 03/06/2024 1:57 PM EDT Patient Phone Numbers Pt was instructed to d/c warfarin during hospitalization. Pt was under the impression she was to d/c warfarin indefinitely due to recent fall and development of hematoma on calf of her left leg, roughly the size of the tennis ball. Pt reports the leg is relatively swollen. Will forward along to Care team (PCP and tail trimmer) to make sure the plan remains for now to keep the patient off warfarin, If so for how long? Indefinitely? MTDM will follow up again next week. Phong Downs, PharmD, BCACP, [facility] Clinical Pharmacist 03/06/2024, 2:00 PM documented in this encounter Plan of Treatment Upcoming Encounters Date Type Department Care Team (Late st Contact Info) Description 03/11/2024 5:10 PM EDT Anticoagulation Pharmacy, [facility] [address] [facility] [place] [address] Pharmacist2, [facility] [address] [place] [address] 03/12/2024 1:00 PM EDT Office Visit Family Practice [facility] [address] [address] Khoa Hui MD [address] [address] 04/26/2024 10:30 AM EST Office Visit Cardiology, [facility] [address] [facility] [place] [address] Kely Pepper PA-C [address] [place] [address] 05/17/2024 12:30 PM EST Imaging Radiology [facility] 1st Floor, [place] [facility] [place] [address] 05/20/2024 12:40 PM EST Office Visit Pulmonary Medicine, [facility] [address] [facility] [place] [address] Segundo Clarke MD [address] [place] [address] 08/30/2024 12:20 PM EDT Office Visit Family Practice [facility] [address] [facility] [place] [address] Khoa Hui MD 132 [facility] [place] [address] 03/18/2025 1:40 PM EDT Office Visit Family Practice [facility] [address] [facility] [place] [address] Khoa Hui MD 132 [facility] [place] [address] Health Maintenance Due Date Last Done Comments [...] Advance Directives occurred with: Patient Care Teams Supervisor Plastics Relationship Specialty Start Date End Date Khoa Hui MD [address] [address] PCP - General Family Medicine 05/19/14 documented as of this encounter
--- OUTSIDE RECORDS SUMMARY | 2024-05-03 09:16 | External Medical Summary | Summary of Care ---
Author Name Unknown Organization [facility] Address [address] [place] [address] Phone [phone] Care Team Providers Care Petroleum Inspector Name Role Phone Khoa Hui MD Primary Care Provider + Reason for Visit * Reason Onset Date Comments Follow Up 02/28/2024 O2 orders Encounter Details Date Type Department Care Team (Late st Contact Info) Description 02/28/2024 Telephone Pulmonary Medicine Ramyon Hagan [address] [phone] Segundo Clarke MD [address] [id number] Follow Up (O2 orders) Allergies Active Allergy [...] as of this encounter (statuses as of 03/07/2024) Medications Medication Sig Dispensed Refills Start Date End Date Status Aspirin EC 81 MG Oral Tablet Delayed Release Take 1 Tablet by mouth in the morning. 01/21/2022 Active Azelastine HCl 0.1 % Nasal Solution (Astelin)Indications: Rhinitis, nonallergic Administer 1 [place] into nostril in the morning and 1 [place] before bedtime. 90 mL 3 04/05/2023 Active Isosorbide Mononitrate ER 30 MG Oral Tablet Extended Release 24 Hour (Imdur)Indications:CA D in [place] artery Take 1 Tablet by mouth in the morning. 90 Tablet 3 07/05/2023 Active Nitroglycerin 0.4 MG Sublingual Tablet Sublingual (Nitrostat)Indication s:CAD in [place] artery Place 1 Tablet under the [...] s:COPD, group D, by GOLD 2017 classification ([facility]) Inhale 2 Puffs by mouth in the morning and 2 Puffs before bedtime. 32.1 g 3 02/21/2024 Active ProAir HFA 108 (90 Base) MCG/ACT Inhalation Aerosol SolutionIndications:C OPD, group D, by GOLD 2017 classification ([facility]) Inhale 2 Puffs by mouth every 4 hours as needed for Cough, Shortness of Breath or Wheezing. 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 Change to toprol. Start xarelto. 2007? converted with IV diltiazem Routine general medical exam ination at a health care facility 09/05/2013 Overview: 02/26 TTE [facility] normal EF Grade II Ghosh DYs, [...] as of this encounter (statuses as of 03/07/2024) Resolved Problems Problem Noted Date Diagnosed Date [...] as of this encounter (statuses as of 03/07/2024) Immunizations Name Administration Dates Next Due COVID-19 mRNA, LNP-s, No Pre serve, 2-Dose Series ([employer]) 01/26/2022,03/08/2021,08/20/2020,07/30 Pneumococcal Polysaccharide PPV23 (Pneumovax) 05/13/2009 Seasonal [...] Telephone Encounter - Sandra Otto LPN - 03/06/2024 9:12 AM EDT Our office called the pt's daughter who states the pt was d/c yesterday to home. Pt's daughter states that the [facility] worker [facility] was going to call [employer] [facility] and see if that testing is enough to get the POC. Pt's daughter states they are willing to switch to [employer] but afraid to call [facility] and have them pickle cutter their equipment without having the new equipm ent from [facility]. Pt's daughter was advised to contact [employer] [facility] to let the know the pt is home . * Telephone Encounter - Sandra Otto LPN - 03/06/2024 9:01 AM EDT Per [facility]. [facility] has advised the case reviewer do all necessary testing to qualify the pt for the POC conserving device. However the pt has still not switched her care to [employer]. So all orders will need to go through the exsisiting DME which is [facility]. This has all be explained to the pt's daughter more than once by more than one person at [facility]. Pt's daughter states the pt would like to come into [employer] and basically " shop around " what [facility] has before the pt switched DME supplier. It has been told to the t's daughter multiple times they can not dothat. All options have been explained to the pt's daughter and pt. Still waiting to see what the pt/ daughter would like to do * Telephone Encounter - Sandra Otto LPN - 02/29/2024 10:41 AM EDT Per [facility] @ [facility] they do not need PFT's or POC. [employer] has everything they need to proceed. However after Geo and Opal from [facility] spoke with the pt's daughter, daughter is not sure if they even want to switch suppliers to [employer] from [facility]. * Telephone Encounter - Jalyn Villasenor OSA - 02/29/2024 10:19 AM EDT Daughter calling in to request that the last PFT's patient had need to be sent to [facility] along with the POC. Please advise. Fax number [phone] Thank you! * Telephone Encounter - Sarina [...] wants to do at this time. Per [employer] to get the poc .She will have to switch to them from her current DME which is [employer] . [employer] [facility] is aware. documented in this encounter Plan of Treatment Upcoming Encounters Date Type Department Care Team (Late st Contact Info) Description 03/11/2024 5:10 PM EDT Anticoagulation Pharmacy, [facility] [address] [place] [address] Pharmacist2, [facility] 200 [facility] [place] [address] 03/12/2024 1:00 PM EDT Office Visit Family Practice [facility] [address] [address] Khoa Hui MD [address] [address] 04/26/2024 10:30 AM EST Office Visit Cardiology, [facility] [address] [address] Kely Pepper PA-C [address] [address] 05/17/2024 12:30 PM EST Imaging Radiology [facility] [address] [address] 05/20/2024 12:40 PM EST Office Visit Pulmonary Medicine, [facility] [address] [address] Segundo Clarke MD [address] [place] [address] 08/30/2024 12:20 PM EDT Office Visit [facility] [address] [place] [address] Khoa Hui MD [address] [facility] [place] [address] 03/18/2025 1:40 PM EDT Office Visit [facility] [address] [place] [address] Khoa Hui MD [address] [place] [address] Health Maintenance Due Date Last Done Comments [...] Advance Directives occurred with: Patient Care Teams Petroleum Inspector Relationship Specialty Start Date End Date Khoa Hui MD 132 [facility] [place] [address] PCP - General Family Medicine 05/19/14 documented as of this encounter
--- OUTSIDE RECORDS SUMMARY | 2024-05-03 09:16 | External Medical Summary | Summary of Care ---
Author Name Unknown Organization [facility] Address [address] [place] [address] Phone [phone] Care Team Providers Care Director Skills Name Role Phone Khoa Hui MD Primary Care Provider + Reason for Visit * Reason Comments Dosage Adjustment Via Phone (anticoag Cl inic) Encounter Details Date Type Department Care Team (Latest Contact Info) Description 03/15/2024 5:30 PM EDT Anticoagulation Pharmacy, [facility] 200 [facility] [place] [address] Pharmacist1, [facility] 200 [facility] [place] [address] Anticoagulation management encounter*; Paroxysmal atrial fibrillation (HCC) [...] as of this encounter (statuses as of 03/15/2024) Medications Medication Sig Dispensed Refills Start Date End Date Status Aspirin EC 81 MG Oral Tablet Delayed Release Take 1 Tablet by mouth in the morning. 01/21/2022 Active Azelastine HCl 0.1 % Nasal Solution (Astelin)Indications :Rhinitis, nonallergic Administer 1 [place] into nostril in the morning and 1 [place] before bedtime. 90 mL 3 04/05/2023 Active Isosorbide Mononitrate ER 30 MG Oral Tablet Extended Release 24 Hour (Imdur)Indications:C AD in [place] artery Take 1 Tablet by mouth in the morning. 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 Medication Therapy Disease Management - Anticoagulation Patient: Lila Rolle | : 1945 Subjective Patient-Reported Symptoms: Patient Findings Positives: Signs/symptoms of bleeding (Had a large hematoma and Hgb was noted to be 10.[address] [facility]), Change in medications (Patient was just restarted on warfarin 3 days ago) Negatives: Signs/symptoms of thrombosis, Change in health, Change in alcohol use, Change in activity, Upcoming invasive procedure, Missed doses, Extra doses, Change in diet/appetite, Bruising Comments: Per TE from Dr. Hui, reviewed the risk of starting warfarin so soon with the hematomaand low Hgb post syncope fall. Patient accepted the risk and wanted to be restarted on warfarin. Due to recent hematoma and restart of warfarin will not plan to increase dose today as patient was therapeutic on this dose prior. Objective Current Warfarin Dose As of 03/15/2024 Warfarin maintenance plan: 1.25 mg (2.5 mg x 0.5) every Tue, Sat; 2.5 mg (2.5 mg x 1) all other days INR Result As of 03/15/2024 INR goal: 2.0-3.0 INR used for dosin.3 (03/15/2024) Assessment & Plan Warfarin Plan As of 03/15/2024 Full warfarin instructions: 1.25 mg every Tue, Sat; 2.5 mg all other days Next INR check: 03/22/2024 Repeat PT/INR in 1 week(s); Order faxed to Ana FARRELL (FAX: [phone]) Weekly dose: not changed Additional Dosing Information: Description Given patients aversion to self injections and lower predicted risk Per Cardiology (see 01/13/22 note) okay with NO lovenox bridge. I spent a total of 10-19 minutes (exact time 5 mins) on the date of service in preparation, delivery, and documentation of the care provided to Lila Rolle excluding any time spent in the performance of separately billed services or time spent by another provider/QHP. Liliana Boudreaux [facility] Clinical Pharmacist 03/15/2024, 2:42 PM * Rashida Olguin CPhT - 03/15/2024 11:26 AM EDT Caller's name: Machelle Banks call back number(OFFICE NUMBER FOR ): [phone] Reason for call: nursing facility, [facility], calling with INR results. Result is 1.3 which was drawn on 03/15. Patient is not being discharged. Thank you, Rashida Olguin CPhT Child Development Consultant II [facility] [address] [place] [employer] [place] [address] [address] [place] [address] [id number] 03/15/2024,11:26 AM documented in this encounter Plan of Treatment Upcoming Encounters Date Type Department Care Team (Late st Contact Info) Description 03/22/2024 5:10 PM EDT Anticoagulation Pharmacy, [facility] 200 [facility] [place] [address] Pharmacist2, [facility] [address] [facility] [place] [address] 04/26/2024 10:30 AM EST Office Visit Cardiology, [facility] [address] [place] [address] Kely Pepper PA-C [address] [address] 05/17/2024 12:30 PM EST Imaging Radiology [facility] 1st Floor, [place] [address] [place] [address] 05/20/2024 12:40 PM EST Office Visit Pulmonary Medicine, [facility] 132 [facility] [place] [address] Segundo Clarke MD [address] [place] [address] 08/30/2024 12:20 PM EDT Office Visit Family [facility] 132 [facility] [place] [address] Khoa Hui MD [address] [place] [address] 03/18/2025 1:40 PM EDT Office Visit [facility] [place] [address] Khoa Hui MD 132 [facility] [place] [address] Health Maintenance Due Date Last Done Comments [...] Date/Time Associated Diagnosis Comments OUTSIDE LAB-PT/INR Routine 03/15/2024 documented in this encounter Results * OUTSIDE LAB-PT/INR (03/15/2024) INR-OUTSIDE LAB 1.3 OUTS [facility] (SEE SCANNED REPORT) 03/15/2024 History Per Patient LABORATORY OUTSIDE LAB (SEE SCANNED REPORT) documented in [...] Directives occurred with: Patient Care Teams Director Skills Relationship Specialty Start Date End Date Khoa Hui MD [address] [place] [address] PCP - General Family Medicine 05/19/14 documented as of this encounter"
--- OUTSIDE RECORDS SUMMARY | 2024-05-03 09:16 | External Medical Summary | Summary of Care ---
Author Name Unknown Organization [facility] Address [address] [place] [address] Phone [phone] Care Team Providers Care Spindle Maker Name Role Phone Khoa Hui MD Primary Care Provider + Reason for Visit * Reason Onset Date Comments Advice 03/01/2024 Encounter Details Date Type Department Care Team (Late st Contact Info) Description 03/01/2024 Telephone Pulmonary Medicine, [facility] [address] [place] [address] Services, Scheduling [address] [place] [address] Advice Allergies Active Allergy Reactions Criticality Noted [...] as of this encounter (statuses as of 03/04/2024) Medications Medication Sig Dispensed Refills Start Date End Date Status Aspirin EC 81 MG Oral Tablet Delayed Release Take 1 Tablet by mouth in the morning. 01/21/2022 Active Azelastine HCl 0.1 % Nasal Solution (Astelin)Indications :Rhinitis, nonallergic Administer 1 [place] into nostril in the morning and 1 [place] before bedtime. 90 mL 3 04/05/2023 Active Isosorbide Mononitrate ER 30 MG Oral Tablet Extended Release 24 Hour (Imdur)Indications:C AD in [place] artery Take 1 Tablet by mouth in the morning. 90 Tablet 3 07/05/2023 Active Nitroglycerin 0.4 MG Sublingual Tablet Sublingual (Nitrostat)Indicatio ns:CAD in [place] artery Place 1 Tablet under the tongue [...] D, by GOLD 2017 classification ([facility]) Inhale 2 Puffs by mouth in the morning and 2 Puffs before bedtime. 32.1 g 3 02/21/2024 Active ProAir HFA 108 (90 Base) MCG/ACT Inhalation Aerosol SolutionIndications: COPD, group D, by GOLD 2017 classification ([facility]) Inhale 2 Puffs by mouth every [...] as of this encounter (statuses as of 03/04/2024) Active Problems Problem Noted Date Diagnosed Date Chronic respiratory failure with hypoxia 024 COPD, group D, by GOLD 2017 classification 05/16 Overview: Per COPD GOLD Classification Bladder mass 01/05/2022 Ureteral lesion, [place], right 01/05/2022 Chronic diastolic heart failure 07/01/2021 Pulmonary hypertension 07/01/2021 Lung nodule 07/01/2021 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 Change to toprol. Start xarelto. 2007? converted with IV diltiazem Routine general medical exam ination at a health care facility 09/05/2013 Overview: 02/26 TTE [facility] normal EF Grade II Ghosh DYs, mild [...] as of this encounter (statuses as of 03/04/2024) Resolved Problems Problem Noted Date Diagnosed Date [...] as of this encounter (statuses as of 03/04/2024) Immunizations Name Administration Dates Next Due COVID-19 [...] Telephone Encounter - Sandra Otto LPN - 03/04/2024 1:31 PM EDT An email has been sent to Geo @ [employer]. Please see other messages regarding this issue * Telephone Encounter - Senia Vargas OSA - 03/01/2024 3:18 PM EDT Pts daughter Jo Ann called an [employer] still does not have the script or office notes from last visit for her to get the portable O2. If there are any questions please reach out to Jo Ann at [phone]. And [employer]'s fax is [phone] she spoke with Annita at [employer]. documented in this encounter Plan of Treatment Upcoming Encounters Date Type Department Care Team (Late st Contact Info) Description 03/05/2024 5:10 PM EDT Anticoagulation Pharmacy, [facility] [address] [facility] [place] [address] Pharmacist1, [facility] [address] [facility] [place] [address] 04/26/2024 10:30 AM EST Office Visit Cardiology, [facility] [address] [place] [address] Kely Pepper PA-C [address] [place] [address] 05/17/2024 12:30 PM EST Imaging Radiology [address] [place] [address] 05/20/2024 12:40 PM EST Office Visit Pulmonary Medicine, [facility] [place] [address] Segundo Clarke MD [address] [place] [address] 08/30/2024 12:20 PM EDT Office Visit [facility] [address] [place] [address] Khoa Hui MD 132 [facility] [place] [address] 03/18/2025 1:40 PM EDT Office Visit [facility] [address] [place] [address] Khoa Hui MD 132 [facility] [place] [address] Health Maintenance Due Date Last Done Comments [...] Advance Directives occurred with: Patient Care Teams Spindle Maker Relationship Specialty Start Date End Date Khoa Hui MD [address] [place] [address] PCP - General Family Medicine 05/19/14 documented as of this encounter
--- OUTSIDE RECORDS SUMMARY | 2024-05-03 09:16 | External Medical Summary | Summary of Care ---
Author Name Unknown Organization [facility] Address [address] [place] [address] Phone [phone] Care Team Providers Care Piecer Name Role Phone Khoa Hui MD Primary Care Provider + Reason for Visit * Reason Onset Date Comments Follow Up 02/28/2024 O2 orders Encounter Details Date Type Department Care Team (Late st Contact Info) Description 02/28/2024 Telephone Pulmonary Medicine Raymon Hagan [address] [place] [address] [phone] Segundo Clarke MD [address] [phone] Follow Up (O2 orders) Allergies Active Allergy [...] Nasal Solution (Astelin)Indications: Rhinitis, nonallergic Administer 1 [place] into nostril in the morning and 1 [place] before bedtime. 90 mL 3 04/05/2023 Active Isosorbide Mononitrate ER 30 MG Oral Tablet Extended Release 24 Hour (Imdur)Indications:CA D in [place] artery Take 1 Tablet by mouth in the morning. 90 Tablet 3 07/05/2023 Active Nitroglycerin 0.4 MG Sublingual Tablet Sublingual (Nitrostat)Indication s:CAD in [place] artery Place 1 Tablet under the [...] D, by GOLD 2017 classification ([facility]) Inhale 2 Puffs by mouth in the morning and 2 Puffs before bedtime. 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 Change to toprol. Start xarelto. 2007? converted with IV diltiazem Routine general medical exam ination at a health care facility 09/05/2013 Overview: 02/26 TTE [facility] normal EF Grade II Ghosh DYs, mild [...] mRNA, LNP-s, No Pre serve, 2-Dose Series (Glycosan) 01/26/2022,03/08/2021,08/20/2020,07/30 Pneumococcal Polysaccharide PPV23 (Pneumovax) 05/13/2009 Seasonal [...] Telephone Encounter - Sandra Otto LPN - 03/07/2024 11:25 AM EDT The daughter just called me and asked me if I got the testing so that we can test her mother. She apparently is home now and the hospital is going to send us something so I had to explain to her again that I can't do anything. And if she is 3 L continuous, what makes you think with her PFT levels that she's going to be able to trigger a POC even at 4 L pulse. I explained that also. Thank you, Geo Hagan Laundry Bag Punch Operator [employer] * Telephone Encounter - Sandra Otto LPN - 03/06/2024 9:12 AM EDT Our office called the pt's daughter who states the pt was d/c yesterday to home. Pt's daughter states that the pt did a 2 step testing at the [facility]. liner worker at the [facility] was going to call Geo @ [employer] and see if that testing is enough to get the POC. Pt's daughter states they are willing to switch to [employer] but afraid to call [facility] and have them oyster picker their equipment without having the new equipm ent from [employer]. Pt's daughter was advised to contact Geo At [facility] to let the know the pt is home . * Telephone Encounter - Sandra Otto LPN - 03/06/2024 9:01 AM EDT Per Geo @ [employer] the pt was admitted to the [facility] last week. [employer] has advised the case making machine operator do all necessary testing to qualify the pt for the POC conserving device. However the pt has still not switched her care to [employer]. So all orders will need to go through the exsisiting DME which is [facility]. This has all be explained to the pt's daughter more than once by more than one person at [facility]. Pt's daughter states the pt would like to come into [employer] and basically " shop around " what [employer] has before the pt switched DME supplier. It has been told to the t's daughter multiple times they can not dothat. All options have been explained to the pt's daughter and pt. Still waiting to see what the pt/ daughter would like to do * Telephone Encounter - Sandra Otto LPN - 02/29/2024 10:41 AM EDT Per Geo @ [facility] they do not need PFT's or POC. [employer] has everything they need to proceed. However after Kyree from [facility] spoke with the pt's daughter, daughter is not sure if they even want to switch suppliers to [facility] from [facility]. * Telephone Encounter - Jalyn Villasenor OSA - 02/29/2024 10:19 AM EDT Daughter calling in to request that the last PFT's patient had need to be sent to [facility] along with the POC. Please advise. Fax number [phone] Thank you! * Telephone Encounter - Sarina [...] afternoon. Thank you * Telephone Encounter - Sarnia Valiente LPN - 02/28/2024 1:18 PM EDT Left message for patients daughter (Jo Ann) to discuss recent orders for poc Patient stated that daughter isn't sure what she wants to do at this time. Per [employer] [facility] to get the poc .She will have to switch to them from her current DME which is [employer] . [employer] is aware. documented in this encounter Plan of Treatment Upcoming Encounters Date Type Department Care Team (Late st Contact Info) Description 03/11/2024 5:10 PM EDT Anticoagulation Pharmacy, [facility] [address] [facility] [place] [address] Pharmacist2, [facility] [address] [place] [address] 03/12/2024 1:00 PM EDT Office Visit Family Practice [facility] [address] [address] Khoa Hui MD [address] [place] [address] 04/26/2024 10:30 AM EST Office Visit Cardiology, [facility] 132 [facility] [place] [address] Kely Pepper PA-C [address] [place] [address] 05/17/2024 12:30 PM EST Imaging Radiology [facility] 1st Floor, [place] [address] [facility] [place] [address] 05/20/2024 12:40 PM EST Office Visit Pulmonary Medicine, [facility] [address] [facility] [place] [address] Segundo Clarke MD [address] [address] 08/30/2024 12:20 PM EDT Office Visit Family Practice [facility] [address] [facility] [place] [address] Khoa Hui MD 132 [facility] [place] [address] 03/18/2025 1:40 PM EDT Office Visit Family Practice [facility] 132 [facility] [place] [address] Khoa Hui MD 132 [facility] [place] [address] Health Maintenance Due Date Last Done Comments [...] Advance Directives occurred with: Patient Care Teams Piecer Relationship Specialty Start Date End Date hKoa Hui MD [address] [place] [address] PCP - General Family Medicine 05/19/14 documented as of this encounter
--- OUTSIDE RECORDS SUMMARY | 2024-05-03 09:16 | External Medical Summary | Summary of Care ---
Author Name Unknown Organization [facility] Address [address] [place] [address] Phone [phone] Care Team Providers Care General Pediatrician Name Role Phone Khoa Hui MD Primary Care Provider + Reason for Visit * Reason Onset Date Comments Follow Up 02/28/2024 O2 orders Encounter Details Date Type Department Care Team (Late st Contact Info) Description 02/28/2024 Telephone Pulmonary Medicine Raymon Hagan [address] [phone] Segundo Clarke MD [address] [phone] Follow Up (O2 orders) Allergies Active Allergy [...] Nasal Solution (Astelin)Indications: Rhinitis, nonallergic Administer 1 [place] into nostril in the morning and 1 [place] before bedtime. 90 mL 3 04/05/2023 Active Isosorbide Mononitrate ER 30 MG Oral Tablet Extended Release 24 Hour (Imdur)Indications:CA D in [place] artery Take 1 Tablet by mouth in the morning. 90 Tablet 3 07/05/2023 Active Nitroglycerin 0.4 MG Sublingual Tablet Sublingual (Nitrostat)Indication s:CAD in [place] artery Place 1 Tablet under [...] group D, by GOLD 2017 classification ([facility]) Inhale 2 Puffs by mouth in the morning and 2 Puffs before bedtime. 32.1 g 3 02/21/2024 Active ProAir HFA 108 (90 Base) MCG/ACT Inhalation Aerosol SolutionIndications:C OPD, group D, by GOLD 2017 classification ([facility]) Inhale 2 Puffs by mouth [...] health care facility 09/05/2013 Overview: 02/26 TTE [facility] normal EF Grade II Ghosh [...] mRNA, LNP-s, No Pre serve, 2-Dose Series ([employer]) 01/26/2022,03/08/2021,08/20/2020,07/30 Pneumococcal Polysaccharide PPV23 (Pneumovax) 05/13/2009 Seasonal [...] did a 2 step testing at the [facility]. fat purification worker at the [facility] was going to call Ego @ [facility] and see if that testing is enough to get the POC. Pt's daughter states they are willing to switch to [employer] but afraid to call [facility] and have them picker and sorter load and unload their equipment without having the new equipm ent from [facility]. Pt's daughter was advised to contact [facility] At [facility] to let the know the pt is home . * Telephone Encounter - Sandra Otto LPN - 03/06/2024 9:01 AM EDT Per Geo @ [facility] the pt was admitted to the [facility] last week. [facility] has advised the top case assembler do all necessary testing to qualify the pt for the POC conserving device. However the pt has still not switched her care to [employer]. So all orders will need to go through the exsisiting DME which is [facility]. This has all be explained to the pt's daughter more than once by more than one person at [facility]. Pt's daughter states the pt would like to come into [employer] and basically " shop around " what [facility] has before the pt switched DME supplier. It has been told to the t's daughter multiple times they can not dothat. All options have been explained to the pt's daughter and pt. Still waiting to see what the pt/ daughter would like to do * Telephone Encounter - Sandra Otto LPN - 02/29/2024 10:41 AM EDT Per Geo @ [facility] they do not need PFT's or POC. [employer] has everything they need to proceed. However after Geo and Opal from [facility] spoke with the pt's daughter, daughter is not sure if they even want to switch suppliers to [employer] from [facility]. * Telephone Encounter - Jalyn Villasenor OSA - 02/29/2024 10:19 AM EDT Daughter calling in to request that the last PFT's patient had need to be sent to [facility] along with the POC. Please advise. Fax number [phone] Thank you! * Telephone Encounter - Sarina [...] wants to do at this time. Per [employer] to get the poc .She will have to switch to them from her current DME which is [employer] . [facility] is aware. documented in this encounter Plan of Treatment Upcoming Encounters Date Type Department Care Team (Late st Contact Info) Description 03/06/2024 5:40 PM EDT Anticoagulation Pharmacy, [facility] [address] [place] [address] Pharmacist2, [facility] 200 [facility] [place] [address] 03/11/2024 10:00 AM EDT Office Visit Family Practice [facility] [address] [address] Khoa Hui MD [address] [place] [address] 04/26/2024 10:30 AM EST Office Visit Cardiology, [facility] [address] [address] Kely Pepper PA-C [address] [address] 05/17/2024 12:30 PM EST Imaging Radiology [facility]st [facility] [address] [address] 05/20/2024 12:40 PM EST Office Visit Pulmonary Medicine, [facility] [address] [address] Segundo Clarke MD [address] [place] [address] 08/30/2024 12:20 PM EDT Office Visit [facility] [address] [place] [address] Khoa Hui MD [address] [facility] [place] [address] 03/18/2025 1:40 PM EDT Office Visit [facility] [address] [place] [address] Khoa Hui MD [address] [place] [address] Health Maintenance Due Date Last Done Comments [...] Advance Directives occurred with: Patient Care Teams General Pediatrician Relationship Specialty Start Date End Date Khoa Hui MD 132 [facility] [place] [address] PCP - General Family Medicine 05/19/14 documented as of this encounter
--- OUTSIDE RECORDS SUMMARY | 2024-05-03 09:16 | External Medical Summary | Summary of Care ---
Author Name Unknown Organization [facility] Address [address] [place] [address] Phone [phone] Care Team Providers Care Tube Cutter Operator Name Role Phone Khoa Hui MD Primary Care Provider + Encounter Details Date Type Department Care Team (Late st Contact Info) Description 02/07/2024 Result Scan Unspecified Department Eunice Childs PA-C [address] [facility] [place] [address] <No scans attached> Allergies Active Allergy Reactions Criticality Noted Date [...] Nasal Solution (Astelin)Indications :Rhinitis, nonallergic Administer 1 [place] into nostril in the morning and 1 [place] before bedtime. 90 mL 3 04/05/2023 Active Isosorbide Mononitrate ER 30 MG Oral Tablet Extended Release 24 Hour (Imdur)Indications:C AD in [place] artery Take 1 Tablet by mouth in the morning. 90 Tablet 3 07/05/2023 Active Nitroglycerin 0.4 MG Sublingual Tablet Sublingual (Nitrostat)Indicatio ns:CAD in [place] artery Place 1 Tablet under the tongue [...] ANTICOAG CLINIC 90 Tablet 3 10/12/2023 Active documented as of this encounter (statuses as of 03/04/2024) Active Problems Problem Noted Date Diagnosed Date Chronic respiratory failure with hypoxia 024 COPD, group D, by GOLD 2017 classification 05/16 Overview: Per COPD GOLD Classification Bladder mass 01/05/2022 Ureteral lesion, [place], right 01/05/2022 Chronic diastolic heart failure 07/01/2021 Pulmonary hypertension 07/01/2021 Lung nodule 07/01/2021 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 Change to toprol. Start xarelto. 2007? converted with IV diltiazem Routine general medical exam ination at a health care facility 09/05/2013 Overview: 02/26 TTE [facility] normal EF Grade II Ghosh DYs, [...] 02/03/2023 Does the household have a re lar source of income? (Household - for ages [...] 03/05/2024 5:10 PM EDT Anticoagulation Pharmacy, [facility] [address] [place] [address] Pharmacist1, [facility] [address] [place] [address] 04/26/2024 10:30 AM EST Office Visit Cardiology, [facility] [address] [place] [address] Kely Pepper PA-C [address] [place] [address] 05/17/2024 12:30 PM EST Imaging Radiology [facility]st [facility] [address] [facility] [place] [address] 05/20/2024 12:40 PM EST Office Visit Pulmonary Medicine, [facility] [address] [facility] [place] [address] Segundo Clarke MD [address] [place] [address] 08/30/2024 12:20 PM EDT Office Visit Family Practice [facility] [address] [facility] [place] [address] Khoa Hui MD 132 [facility] [place] [address] 03/18/2025 1:40 PM EDT Office Visit [facility] [place] [address] Khoa Hui MD 132 [facility] [place] [address] Health Maintenance Due Date Last Done Comments [...] Procedure Name Priority Date/Time Associated Diagnosis Comments ECHOCARDIOLOGY SCANNED RESULT 02/07/2024 documented in this encounter Results * ECHOCARDIOLOGY SCANNED RESULT (02/07/2024) 02/07/2024 Eunice Childs PA-C ECHOCARDIO LOGY documented in this encounter Advance Directives * [...] Advance Directives occurred with: Patient Care Teams Tube Cutter Operator Relationship Specialty Start Date End Date Khoa Hui MD [address] [place] [address] PCP - General Family Medicine 05/19/14 documented as of this encounter
--- OUTSIDE RECORDS SUMMARY | 2024-05-03 09:16 | External Medical Summary | Summary of Care ---
Author Name Unknown Organization [facility] Address [address] [place] [address] Phone [phone] Care Team Providers Care Air Hammer Stripper Name Role Phone Khoa Hui MD Primary Care Provider + Encounter Details Date Type Department Care Team (Late st Contact Info) Description 03/12/[address] [facility] [address] [place] [address] Khoa Hui MD [address] [facility] [address] Allergies Active Allergy Reactions Criticality Noted [...] as of this encounter (statuses as of 03/12/2024) Medications Medication Sig Dispensed Refills Start Date End Date Status Aspirin EC 81 MG Oral Tablet Delayed Release Take 1 Tablet by mouth in the morning. 01/21/2022 Active Azelastine HCl 0.1 % Nasal Solution (Astelin)Indications :Rhinitis, nonallergic Administer 1 [place] into nostril in the morning and 1 [place] before bedtime. 90 mL 3 04/05/2023 Active Isosorbide Mononitrate ER 30 MG Oral Tablet Extended Release 24 Hour (Imdur)Indications:C AD in [place] artery Take 1 Tablet by mouth in the morning. 90 Tablet 3 07/05/2023 Active Nitroglycerin 0.4 MG Sublingual Tablet Sublingual (Nitrostat)Indicatio ns:CAD in [place] artery Place 1 Tablet under the tongue [...] as of this encounter (statuses as of 03/12/2024) Active Problems Problem Noted Date Diagnosed Date Chronic respiratory failure with hypoxia 024 COPD, group D, by GOLD 2017 classification 05/16 Overview: Per COPD GOLD Classification Bladder mass 01/05/2022 Ureteral lesion, [place], right 01/05/2022 Chronic diastolic heart failure 07/01/2021 Pulmonary hypertension 07/01/2021 Lung nodule 07/01/2021 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 10/25/2018 Prediabetes 07/31/2018 Elevated TSH 07/31/2018 CAD in [place] artery 03/20/2015 Venous insufficiency 03/12/2014 Overview: 03/18 US --no DVT LLE Paroxysmal atrial fibrillation 02/04/2014 Overview: 01/16-[facility] hosp w/rapid response. Change to toprol. Start xarelto. 2007? converted with IV diltiazem Routine general medical exam ination at a health care facility 09/05/2013 Overview: 02/26 TTE [facility] normal EF Grade II Ghosh [...] as of this encounter (statuses as of 03/12/2024) Resolved Problems Problem Noted Date Diagnosed Date [...] as of this encounter (statuses as of 03/12/2024) Immunizations Name Administration Dates Next Due COVID-19 [...] Telephone Encounter - Phong Downs RPh - 03/12/2024 2:44 PM EDT Medication Therapy Disease Management - Anticoagulation Patient: Lila Rolle | : 1945 Subjective Patient is getting care from [facility] -- [facility] [employer] [facility] PH: [phone] FAX: [phone] -- Melissa [phone] (nurse in home) Patient-Reported Symptoms: Patient Findings Negatives: Signs/symptoms of thrombosis, Signs/symptoms of bleeding, Change in health, Change in alcohol use, Change in activity, Upcoming invasive procedure, Missed doses, Extra doses, Change in medications, Change in diet/appetite, Bruising Comments: Per Dr. Hui "discussed warfarin with patient, she wants to restart, will restart today" Objective Current Warfarin Dose As of 03/12/2024 Warfarin maintenance plan: 1.25 mg (2.5 mg x 0.5) every Tue, Sat; 2.5 mg (2.5 mg x 1) all other days INR Result As of 03/12/2024 INR goal: 2.0-3.0 INR used for dosing: No new INR was available at the time of this encounter. Assessment & Plan Warfarin Plan As of 03/12/2024 Full warfarin instructions: 1.25 mg every Tue, Sat; 2.5 mg all other days Next INR check: 03/15/2024 Repeat PT/INR in 4 day(s) Weekly dose: Restarted previous dose Additional Dosing Information: Description Given patients aversion [...] time spent by another provider/QHP. Phong Downs [facility] Clinical Pharmacist 03/12/2024, 2:44 PM * Telephone Encounter - Khoa Hui MD - 03/12/2024 2:24 PM EDT Gely/ Christiano / Magdiel--discussed warfarin with patient, she wants to restart, will restart today. documented in this encounter Plan of Treatment Upcoming Encounters Date Type Department Care Team (Late st Contact Info) Description 03/15/2024 5:30 PM EDT Anticoagulation Pharmacy, [facility] [address] [facility] [place] [address] Pharmacist1, [facility] [address] [facility] [place] [address] 04/26/2024 10:30 AM EST Office Visit Cardiology, [facility] [address] [facility] [place] [address] Kely Pepper PA-C [address] [place] [address] 05/17/2024 12:30 PM EST Imaging Radiology [address] [facility] [place] [address] 05/20/2024 12:40 PM EST Office Visit Pulmonary Medicine, [facility] [address] [facility] [place] [address] Segundo Clarke MD [address] [place] [address] 08/30/2024 12:20 PM EDT Office Visit Family Practice [facility] [address] [place] [address] Khoa Hui MD [address] [place] [address] 03/18/2025 1:40 PM EDT Office Visit Family Practice [facility] [address] [place] [address] Khoa Hui MD [address] [place] [address] Health Maintenance Due Date Last Done Comments [...] Advance Directives occurred with: Patient Care Teams Air Hammer Stripper Relationship Specialty Start Date End Date Khoa Hui MD [address] [place] [address] PCP - General Family Medicine 05/19/14 documented as of this encounter
--- OUTSIDE RECORDS SUMMARY | 2024-05-03 09:16 | External Medical Summary | Summary of Care ---
Author Name Unknown Organization [facility] Address [address] [place] [address] Phone [phone] Care Team Providers Care Client Account Representative Name Role Phone Khoa Hui MD Primary Care Provider + Reason for Visit * Reason Comments Hospital Follow-Up Encounter Details Date Type Department Care Team (Latest Contact Info) Description 03/12/2024 1:00 PM EDT Office Visit Family Practice [facility] [address] [place] [address] Khoa Hui MD [address] [facility] [place] [address] Syncope and collapse*; Elevated glucose; Hematoma [...] Nasal Solution (Astelin)Indications :Rhinitis, nonallergic Administer 1 [place] into nostril in the morning and 1 [place] before bedtime. 90 mL 3 04/05/2023 Active [...] LLE Paroxysmal atrial fibrillation 02/04/2014 Overview: 01/16-[facility] hosp w/rapid response. Change to toprol. Start xarelto. 2007? converted with IV diltiazem Routine general medical exam ination at a health care facility 09/05/2013 Overview: 02/26 TTE [facility] normal EF Grade II Ghosh DYs, mild [...] mRNA, LNP-s, No Pre serve, 2-Dose Series ([facility]) 01/26/2022,03/08/2021,08/20/2020,07/30 Pneumococcal Polysaccharide PPV23 (Pneumovax) 05/13/2009 Seasonal [...] EDT Temperature 36.5 C (97.7 F) 03/12/2024 1:06 PM ED T Respiratory Rate 18 03/12/2024 1:06 PM EDT Oxygen Saturation - - Inhaled Oxygen Concentration - - Weight 63 kg (139 lb) 03/12/2024 1:06 PM EDT Height - - Body Mass Index 23.13 02/19/2024 12:58 PM EDT documented in this [...] COPD (chronic obstructive pulmonary disease) ([facility]) COPD, moderate (HCC) 05/08/2013 emphysema Dyslipidemia, goal LDL below 100 09/10/2010 Elevated TSH 07/31/2018 Emphysema 05/08/2013 HTN, goal below 140/90 Kidney disease, chronic, stage III (GFR 30-59 ml/min) ([facility]) 07/29/2013 Per CKD protocol #1 Lung nodule Ovarian cyst 10/09/2008 Paroxysmal atrial fibrillation (HCC) 02/04/2014 Prediabetes 07/31/2018 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 10/25/2018 Pulmonary arterial hypertension (HCC) Smoker unmotivated to quit Tobacco use disorder Ureteral cancer, right (HCC) 03/10/2022 Venous insufficiency 03/12/201403/18 US --no DVT LLE Past Surgical History: Procedure Laterality Date CARDIAC CATH-CARDIOLOGY ONLY 10/09/2018 Dr Naqvi/Dr Marquez--[facility]-1 AME in mid RCA CYSTOSCOPY 06/14/2022 Dr Kenny--no tumor recurrence CYSTOSCOPY/TREAT SML BLADDER TUMOR N/A 2022 CYSTOURETHROSCOPY WITH FULGURATION SMALL BLADDER TUMOR performed by Sánchez Kenny MD at OR [facility] DEFIB/CARDIOVERSION 10/18/2018 for rapid afib [facility]. HYSTEROSCOPY W/BIOPSY AND/OR POLYPECTOMY W/WO D&C 10/16/2008 [...] time w/2 local grandkids and others in [place]. 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 Entered [...] Stability Do you currently live in a snf or have no steady place to sleep [...] 0.1 % Nasal Solution (Astelin) Administer 1 [place] into nostril in the morning and 1 [place] before bedtime. 90 mL 3 Isosorbide Mononitrate [...] 2 Breztri Aerosphere 160-9-4.8 MCG/ACT Inhalation Aerosol (Pgltnyo-Zxfmywlkshw-Fyiagifqdp) Inhale 2 Puffs by mouth in the [...] 1 TABLET DAILY DIRECTED BY ANTICOAG CLINIC (Patient not taking: Reported on 03/12/2024) [...] this encounter Nursing Notes * Mary Donnelly, ASSURANCE ENGINEER - 03/12/2024 1:02 PM EDT Pt states that she is feeling lousy Has left leg bandaged & wrapped - is seeping documented in this encounter Plan of Treatment Upcoming Encounters Date Type Department Care Team (Late st Contact Info) Description 03/13/2024 5:10 PM EDT Anticoagulation Pharmacy, [facility] [address] [facility] [place] [address] Pharmacist2, [facility] [address] [facility] [place] [address] 04/26/2024 10:30 AM EST Office Visit Cardiology, [facility] [address] [place] [address] Kely Pepper PA-C [address] [place] [address] 05/17/2024 12:30 PM EST Imaging Radiology [facility] [address] [place] [address] 05/20/2024 12:40 PM EST Office Visit Pulmonary Medicine, [facility] [address] [facility] [place] [address] Segundo Clarke MD [address] [place] [address] 08/30/2024 12:20 PM EDT Office Visit Family Practice [facility] [address] [place] [address] Khoa Hui MD [address] [place] [address] 03/18/2025 1:40 PM EDT Office Visit [facility] Practice [facility] [address] [place] [address] Khoa Hui MD [address] [place] [address] Health Maintenance Due Date Last Done Comments [...] Advance Directives occurred with: Patient Care Teams Client Account Representative Relationship Specialty Start Date End Date Khoa Hui MD [address] [place] [address] PCP - General Family Medicine 05/19/14 documented as of this encounter"
--- OUTSIDE RECORDS SUMMARY | 2024-05-03 09:16 | External Medical Summary | Summary of Care ---
Author Name Unknown Organization [facility] Address [address] [place] [address] Phone [phone] Care Team Providers Care Diamond Sorter Name Role Phone Khoa Hui MD Primary Care Provider + Reason for Visit * Reason Onset Date Comments Follow Up 02/28/2024 O2 orders Encounter Details Date Type Department Care Team (Late st Contact Info) Description 02/28/2024 Telephone Pulmonary Medicine Ray[facility] Hagan [address] [place] [phone] Segundo Clarke MD [address] [place] [id number] Follow Up (O2 orders) Allergies Active Allergy [...] Nasal Solution (Astelin)Indications: Rhinitis, nonallergic Administer 1 [place] into nostril in the morning and 1 [place] before bedtime. 90 mL 3 04/05/2023 Active Isosorbide Mononitrate ER 30 MG Oral Tablet Extended Release 24 Hour (Imdur)Indications:CA D in [place] artery Take 1 Tablet by mouth in the morning. 90 Tablet 3 07/05/2023 Active Nitroglycerin 0.4 MG Sublingual Tablet Sublingual (Nitrostat)Indication s:CAD in [place] artery Place 1 Tablet under the tongue [...] GOLD Classification Bladder mass 01/05/2022 Ureteral lesion, [place], right 01/05/2022 Chronic diastolic heart failure 07/01/2021 Pulmonary hypertension 07/01/2021 Lung nodule 07/01/2021 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 10/25/2018 Prediabetes 07/31/2018 Elevated TSH 07/31/2018 CAD in [place] artery 03/20/2015 Venous insufficiency 03/12/2014 Overview: 03/18 US --no DVT LLE Paroxysmal atrial fibrillation 02/04/2014 Overview: 01/16-[facility] hosp w/rapid response. Change to toprol. Start xarelto. 2007? converted with IV diltiazem Routine general medical exam ination at a health care facility 09/05/2013 Overview: 02/26 TTE [facility] normal EF Grade II Ghosh [...] mRNA, LNP-s, No Pre serve, 2-Dose Series ([employer]) 01/26/2022,03/08/2021,08/20/2020,07/30 Pneumococcal Polysaccharide PPV23 (Pneumovax) 05/13/2009 Seasonal [...] Miscellaneous Notes * Telephone Encounter - Sandra tOto LPN - 03/06/2024 9:12 AM EDT Our office called the pt's daughter who states the pt was d/c yesterday to home. Pt's daughter states that the pt did a [address] [facility]. tree and shrub worker at the [facility] was going to call [employer] [facility] and see if that testing is enough to get the POC. Pt's daughter states they are willing to switch to [employer] but afraid to call [facility] and have them last picker their equipment without having the new equipm ent from [facility]. Pt's daughter was advised to contact [employer] [facility] to let the know the pt is home . * Telephone Encounter - Sandra Otto LPN - 03/06/2024 9:01 AM EDT Per [facility] the pt was admitted to the [facility] last week. [facility] has advised the pillowcase turner do all necessary testing to qualify the pt for the POC conserving device. However the pt has still not switched her care to [employer]. So all orders will need to go through the exsisiting DME which is [facility]. This has all be explained to the pt's daughter more than once by more than one person at [facility]. Pt's daughter states the pt would like to come into [employer] and basically " shop around " what [facility] has before the pt switched DME supplier. It has been told to the t's daughter multiple times they can not dothat. All options have been explained to the pt's daughter and pt. Still waiting to see what the pt/ daughter would like to do * Telephone Encounter - Sandra Otto LPN - 02/29/2024 10:41 AM EDT Per [facility] @ [facility] they do not need PFT's or POC. [employer] has everything they need to proceed. However after Geo and Opal from [facility] spoke with the pt's daughter, daughter is not sure if they even want to switch suppliers to [employer] from [facility]. * Telephone Encounter - Jalyn Villasenor OSA - 02/29/2024 10:19 AM EDT Daughter calling in to request that the last PFT's patient had need to be sent to [facility] along with the POC. Please advise. Fax number [phone] Thank you! * Telephone Encounter - Sarina [...] wants to do at this time. Per [employer] to get the poc .She will have to switch to them from her current DME which is [employer] . [employer] [facility] is aware. documented in this encounter Plan of Treatment Upcoming Encounters Date Type Department Care Team (Late st Contact Info) Description 03/06/2024 5:40 PM EDT Anticoagulation Pharmacy, [facility] [address] [place] [address] Pharmacist2, [facility] [address] [facility] [place] [address] 03/11/2024 10:00 AM EDT Office Visit Family Practice [facility] [address] [place] [address] Khoa Hui MD [address] [place] [address] 04/26/2024 10:30 AM EST Office Visit Cardiology, [facility] [address] [place] [address] Kely Pepper PA-C [address] [place] [address] 05/17/2024 12:30 PM EST Imaging Radiology [facility] [address] [place] [address] 05/20/2024 12:40 PM EST Office Visit Pulmonary Medicine, [facility] [address] [place] [address] Segundo Clarke MD [address] [place] [address] 08/30/2024 12:20 PM EDT Office Visit [facility] [address] [place] [address] Khoa Hui MD [address] [facility] [place] [address] 03/18/2025 1:40 PM EDT Office Visit [facility] [address] [place] [address] Khoa Hui MD [address] [place] [address] Health Maintenance Due Date Last Done Comments [...] Advance Directives occurred with: Patient Care Teams Diamond Sorter Relationship Specialty Start Date End Date Khoa Hui MD [address] [facility] [place] [address] PCP - General Family Medicine 05/19/14 documented as of this encounter
--- NOTE | 2024-05-03 09:31 | Emergency Department Note ---
Impression & Plan Acute exacerbation of chronic obstructive pulmonary disease (COPD) ED Provider Note Name: CAMILA CASTILLO Age: 79 Sex: Female Arrives Via: Ambulance Informant: Patient ED Provider: [place] Najera MD Chief Complaint: Shortness of breath Impression: As per impressions above Medical Decision Makin-year-old female arrives for evaluation of 2 to 3 days worsening shortness of breath. History of COPD. She is hypoxic on her typical 4 L nasal cannula. Symptoms and findings consistent with exacerbation COPD with hypercapnia and. She was given hour-long nebulizer, IV Decadron, IV magnesium. Is breathing better after this but given degree of her symptoms hospitalization is indicated. Patient is on Coumadin already I do not feel this is consistent with PE. There is no evidence of pneumonia and flu/COVID are negative. Will hold off on antibiotics and defer to hospitalist. I do not feel patient is septic at this time. Triage/Nursing Notes reviewed by Me Differential:Reactive airway disease, pneumonia, pneumothorax, COPD, CHF, infections, cardiac ischemia, pulmonary embolism, musculoskeletal, gastrointestinal, as well as other pathologies. Vital Signs: reviewed and remarkable for hypoxia on 4 L nasal cannula Interventions: 1 hour DuoNeb, magnesium IV, Decadron IV Labs:ED labs Reviewed by me and remarkable for elevated CO2 Imagin view chest x-ray as per my interpretation no infiltrate nor effusion appreciated. EKG:As per my interpretation. Indication shortness of breath. Sinus bradycardia 59 bpm with a QTc of 431. There is no significant change from February 22, 2024 EKG. There is no ectopy nor ischemia appreciated. Cardiac/Tele Monitoring: Cardiac Monitoring: An Order was placed for continuous cardiac monitoring. The monitor shows a rate of 60 with a normal sinus rhythm. Consults:Discussed with hospital service who will further evaluate and manage. Plan: Disposition:Hospitalization. Condition: Good History of Present Illness: 79-year-old female arrives for evaluation of shortness of breath. Patient notes the last 2 to 3 days worsening shortness of breath. Associated with inability to take a deep breath. Notes worse with exertion. She has been trying to just sit around and use her nebulizer without improvement. 911 called this morning and her oxygen was in the low 80s despite her 4 L nasal cannula. Patient denies any specific chest pain, syncope, fevers, chills, runny nose or other concerning signs or symptoms. No falls, trauma. No recent change in medications. Denies any known sick contacts. Patient is on Coumadin. No missed doses. Past Medical History:See Below Home Medications:See Below Allergies:See Below Vitals:Blood Pressure: 116/60, Pulse 60, RR 26, T 36.8C, O2 92% on 4L NC Physical Exam: GENERAL: Patient is chronically unwell appearing and in moderate distress. RESPIRATORY: Tachypneic dyspneic and diffusely tight lung sounds with some expiratory wheezing. CARDIOVASCULAR: Regular rate and rhythm.No murmur appreciated. EXTREMITIES: Normal motion all extremities, no cyanosis, no edema. NEUROLOGIC: Alert and oriented. No focal neurologic deficits appreciated SKIN: No rash, no jaundice, no diaphoresis. PSYCH: Appropriate GCS: 15 ED Course: Times/Reassessments: Improvement in breathing however diffuse wheezing still noted. [place] Najera MD Past Med/Surg History Problem List (Updated 05/05/24 @ 09:01 by Berlin Najera MD) Hematoma of left lower extremity (Acute) Cor pulmonale Pulmonary hypertension Left upper lobe pulmonary nodule Anticoagulated on Coumadin (Acute) Acute exacerbation of chronic obstructive pulmonary disease (COPD) (Acute) COPD (chronic obstructive pulmonary disease) (Chronic) Prediabetes (Chronic) Hyperlipidemia (Chronic) Medical History (Updated 05/05/24 @ 09:01 by Berlin Najera MD) Chronic diastolic (congestive) heart failure Tobacco abuse CAD (coronary artery disease), [place] coronary artery Hypertension Emphysema of lung Surgical History S/P right coronary artery (RCA) stent placement H/O: hysterectomy S/P appendectomy Family History Other Colon cancer Social History Smoking Status: Former smoker Tobacco Type: Cigarettes Cigarettes Per Day: smokes occasionally, some days doesn't smoke, other days smokes 3-5 cigs; Second Hand Exposure: No; Do You Dip or Chew Tobacco: No; Hx Alcohol Use: Yes Alcohol type: wine Alcohol Intake Frequency Comment: 1 glass of wine 3-5 days per week Hx Substance Use: No Preferred Language: [place] Islander Communication Ability: Effective Visual Impairment: Limited Hearing Ability: Normal Student Teaching Coordinator Required: No Beliefs That Will Affect Care: None marital status: / Current Living Situation: Alone How many Children do You have: 2 Feels Safe at Home: Yes Diet: regular caffeine: Yes during the past year weight has: decreased > 10 lbs Assistive Devices: Oxygen - Continuous Allergies Allergies Allergy/AdvReac Type Severity Reaction Status Date / Time dog dander Allergy Severe congestion, Verified 04/22/24 07:46 SOB valsartan Allergy Severe Edema Verified 04/22/24 07:46 face/lips/tongue. levofloxacin [From Levaquin] Allergy Intermediate ITCHY Verified 04/22/24 07:46 HIVES ON TRUNK AND LEGS nickel Allergy Mild Rash. Verified 04/22/24 07:46 NAI Inhibitors AdvReac Intermediate Cough. Verified 04/22/24 07:46 influenza virus vaccine ts AdvReac Intermediate SINUS Verified 04/22/24 07:46 [id number] (36 mos,up) PRESSURE/DRAINAGE [From Fluarix] Home Meds Home Medications Medication Instructions Recorded Confirmed nitroglycerin 0.4 mg sublingual 0.4 mg sublingual DIRECTED PRN 04/19/19 05/03/24 tablet Chest Pain sotalol 80 mg tablet 80 mg PO BID 04/19/19 05/03/24 aspirin 81 mg tablet,delayed 81 mg PO QAM 01/17/23 05/03/24 release azelastine 137 mcg (0.1 %) nasal 1 spray intranasal AMHS 01/17/23 05/03/24 spray spironolactone 25 mg tablet 25 mg PO QAM 01/17/23 05/03/24 albuterol sulfate 2.5 mg/3 mL 2.5 mg inhalation DIRECTED PRN 06/26/23 05/03/24 (0.083 %) solution for nebulization Shortness Of Breath Or Wheezing albuterol sulfate 90 mcg/actuation 2 inh inhalation Q4H PRN Shortness 01/02/24 05/03/24 aerosol inhaler Of Breath Or Wheezing prednisone 10 mg tablet 10 mg PO DIRECTED 04/10/24 05/03/24 warfarin 2.5 mg tablet 2.5 mg PO SUMOWEFR@1600 04/10/24 05/03/24 warfarin 2.5 mg tablet 1.25 mg PO TUTHSA@1600 05/03/24 05/03/24 Previous Rx's Medication Instructions Recorded isosorbide mononitrate 30 mg 30 mg PO QAM #30 tabs 06/27/23 tablet,extended release 24 hr budesonide 160 mcg-glycopyr 9 2 inh inhalation AMHS #1 inhaler 02/09/24 mcg-formot 4.8 mcg/actuation HFA inhaler (Breztri Aerosphere) furosemide 20 mg tablet 40 mg (2 x 20 mg) PO QAM #60 tabs 02/09/24 Results & Data (ED) Vital Signs Vital Signs - 24 hr 05/03/24 09:17 Pulse Rate 62 Laboratory Data 05/05/24 04:29 05/05/24 05:48 Lab Results 05/03/24 05/03/24 05/03/24 Range/Units 09:20 09:58 11:30 WBC 12.08 H (4.8-10.8) K/ul RBC 4.08 L (4.20-5.40) M/uL Hgb 12.1 (12.0-16.0) g/dl POC Hgb 11.9 L (12.0-16.0) g/dl Hct 39.5 (37.0-47.0) % POC Hct 35 L (37-47) % MCV 96.8 (80.0-100.0) fL MCH 29.7 (25.0-34.0) pg MCHC 30.6 L (32.0-36.0) g/dL RDW Std Deviation 45.8 (36.4-46.3) fL RDW Coeff of Anais 12.8 (11.5-14.5) % Plt Count 188 (130-400) K/uL MPV 11.4 (9.4-12.4) fL Immature Gran % (Auto) 0.2 % Neut % (Auto) 76.9 % Lymph % (Auto) 14.2 % Maverick % (Auto) 7.8 % Eos % (Auto) 0.7 % Baso % (Auto) 0.2 % Neut # (Auto) 9.28 H (1.40-6.50) K/uL Lymph # (Auto) 1.72 (1.20-3.40) K/uL Maverick # (Auto) 0.94 H (0.11-0.59) K/uL Eos # (Auto) 0.08 (0.00-0.50) K/uL Baso # (Auto) 0.03 (0.00-0.20) K/uL Immature Gran # (Auto) 0.03 (0.01-0.20) K/uL PT 19.4 H (9.0-12.0) Seconds INR 1.9 H (0.9-1.1) Specimen Type Arterial POC pH 7.39 (7.35-7.45) POC pCO2 65 H (35-46) mmHg POC pO2 73 L (80-95) mmHg POC HCO3 39 H (19-24) petros/L POC Total CO2 41 H* (24-31) mmol/L POC Base Excess 14.0 H (-9-1.8) petros/L POC ABG O2 Sat 93.0 (90-95) % VBG pH 7.38 (7.36-7.41) VBG pCO2 77 H (38-50) mmHg VBG pO2 22 mmHg VBG HCO3 46 mmol/L VBG O2 Saturation < 60.0 % VBG Base Excess 16.4 mEq/L POC Sodium 137 (135-144) mmol/L Sodium 141 (136-145) mmol/L POC Potassium 3.5 (3.3-5.0) mmol/L Potassium 3.8 (3.5-5.1) mmol/L Chloride 96 L (98-107) mmol/L Carbon Dioxide 42 H* (21-32) mmol/L Anion Gap 3 (3-11) BUN 16 (6-23) mg/dl Creatinine 0.60 (0.6-1.2) mg/dl Est Cr Clr Drug Dosing 68.8 ml/min eGFR 90.12 BUN/Creatinine Ratio 26.7 H (10-20) Glucose 117 H (70-99(Fasting)) mg/dl Calcium 9.0 (8.6-10.3) mg/dl Magnesium 1.8 (1.7-2.4) mg/dl Total Bilirubin 1.0 (0.2-1.0) mg/dl Direct Bilirubin 0.1 (0-0.2) mg/dl AST 16 (13-39) U/L ALT 19 (7-52) U/L Alkaline Phosphatase 84 (34-104) U/L Total Protein 6.4 (6.0-8.3) gm/dl Albumin 3.4 (3.4-5.0) gm/dl Procalcitonin < 0.02 (0-0.5) ng/ml SARS-CoV-2 (PCR) NEGATIVE (Negative) Influenza Type A (PCR) Negative (Neg) Influenza Type B (PCR) Negative (Neg) RSV (RT-PCR) Negative (Neg) Administered Medications Albuterol (Albuterol Hfa 8 Gm Inhaler) 2 puffs INH Q4H PRN PRN Reason: Shortness Of Breath Or Wheezin Stop: 06/02/24 13:11 Last Admin: 05/04/24 12:36 Dose: 2 puffs Documented By: Admin: 05/04/24 07:33 Dose: 2 puffs Documented By: [id number] Admin: 05/04/24 03:26 Dose: 2 puffs Documented By: JAZMYNE Aspirin (Aspirin 81 Mg Ectab) 81 mg PO QAM [facility] Stop: 06/03/24 08:59 Last Admin: 05/05/24 08:44 Dose: 81 mg Documented By: Admin: 05/04/24 08:23 Dose: 81 mg Documented By: LALA Doxycycline Hyclate (Doxycycline Hyclate 100 Mg Cap) 100 mg PO BID [facility] Stop: 05/09/24 20:59 Last Admin: 05/04/24 20:23 Dose: Not Given Documented By: MAYCOL Fluticasone Furoate (Fluticasone Furoate 200mcg 14 Puffs/Inhaler) 1 puffs INH DAILY [facility] Stop: 06/04/24 08:59 Last Admin: 05/05/24 08:46 Dose: 1 puffs Documented By: LALA Furosemide (Furosemide 40 Mg Tab) 40 mg PO QAM [facility] Stop: 06/03/24 08:59 Last Admin: 05/05/24 08:44 Dose: 40 mg Documented By: Admin: 05/04/24 08:23 Dose: 40 mg Documented By: LALA Guaifenesin (Guaifenesin 600 Mg Tabcr) 600 mg PO Q12 [facility] Stop: 06/03/24 20:59 Last Admin: 05/04/24 20:23 Dose: Not Given Documented By: MAYCOL Guaifenesin (Guaifenesin Sugar Free 200 Mg/10 Ml Udc) 200 mg PO BID [facility] Stop: 06/03/24 21:44 Last Admin: 05/05/24 08:44 Dose: 200 mg Documented By: Admin: 05/04/24 22:13 Dose: 200 mg Documented By: MAYCOL Methylprednisolone 40 mg/ (Syringe) 0.64 mls @ 1.5 mls/min IV Q8H [facility] Stop: 06/03/24 12:59 Last Admin: 05/05/24 04:07 Dose: 1.5 mls/min Documented By: Admin: 05/04/24 20:23 Dose: 1.5 mls/min Documented By: Admin: 05/04/24 14:21 Dose: 1.5 mls/min Documented By: LALA Doxycycline Hyclate 100 mg/ (Dextrose) 100 mls @ 50 mls/hr IV Q12H [facility] Stop: 05/09/24 21:59 Last Infusion: 05/05/24 00:32 Dose: Infused Documented By: Admin: 05/04/24 22:13 Dose: 50 mls/hr Documented By: MAYCOL Insulin Aspart (Insulin Aspart Per Unit Charge) 0 units SC ACHS [facility] Stop: 06/02/24 16:49 Last Admin: 05/05/24 07:50 Dose: Not Given Documented By: Admin: 05/04/24 21:31 Dose: Not Given Documented By: Admin: 05/04/24 17:26 Dose: Not Given Documented By: Admin: 05/04/24 12:27 Dose: Not Given Documented By: Admin: 05/04/24 08:19 Dose: Not Given Documented By: Admin: 05/03/24 20:41 Dose: Not Given Documented By: Admin: 05/03/24 17:56 Dose: Not Given Documented By: AME Isosorbide Mononitrate (Isosorbide Maverick Extended Rel 30 Mg Tabcr) 30 mg PO QAM [facility] Stop: 06/03/24 08:59 Last Admin: 05/05/24 08:44 Dose: 30 mg Documented By: Admin: 05/04/24 08:23 Dose: 30 mg Documented By: LALA Sodium Chloride (Sodium Chlor 7% 4 Ml Neb) 4 ml NEB BIDR [facility] Stop: 06/02/24 18:59 Last Admin: 05/05/24 07:53 Dose: Not Given Documented By: Admin: 05/04/24 19:59 Dose: Not Given Documented By: Admin: 05/04/24 07:35 Dose: Not Given Documented By: [id number] Admin: 05/03/24 19:48 Dose: Not Given Documented By: JAZMYNE Sotalol HCl (Sotalol Hcl 80 Mg Tab) 80 mg PO BID [facility] Stop: 06/02/24 20:59 Last Admin: 05/05/24 08:44 Dose: 80 mg Documented By: Admin: 05/04/24 20:23 Dose: 80 mg Documented By: Admin: 05/04/24 08:23 Dose: 80 mg Documented By: Admin: 05/03/24 20:38 Dose: 80 mg Documented By: MAYCOL Spironolactone (Spironolactone 25 Mg Tab) 25 mg PO QAM [facility] Stop: 06/03/24 08:59 Last Admin: 05/05/24 08:45 Dose: 25 mg Documented By: Admin: 05/04/24 08:23 Dose: 25 mg Documented By: LALA Umeclidinium/Vilanterol (Umeclidinium/Vilanterol 62.5/25mcg 7 Puffs/Inhaler) 1 puffs INH DAILY [facility] Stop: 06/03/24 08:59 Last Admin: 05/05/24 08:46 Dose: 1 puffs Documented By: Admin: 05/04/24 03:16 Dose: 1 puffs Documented By: MAYOCL Warfarin Sodium (Warfarin Sod 2.5 Mg Tab) 2.5 mg PO SUMOWEFR@1600 [facility] Stop: 06/02/24 15:59 Last Admin: 05/03/24 15:53 Dose: 2.5 mg Documented By: AME Warfarin Sodium (Warfarin Sod 1.25 Mg Tab) 1.25 mg PO TUTHSA@1600 [facility] Stop: 06/03/24 15:59 Last Admin: 05/04/24 17:16 Dose: 1.25 mg Documented By: LALA Discontinued Medications Albuterol (Albut/Ipratrop 3mg/0.5mg Neb 3 Ml Vial) 12 ml NEB ONE ONE; Protocol Stop: 05/03/24 09:32 Last Admin: 05/03/24 09:40 Dose: 12 ml Documented By: RODDY Albuterol (Albut/Ipratrop 3mg/0.5mg Neb 3 Ml Vial) 3 ml NEB QIDR DON[facility]AN; Protocol Stop: 06/02/24 14:59 Last Admin: 05/03/24 15:22 Dose: 3 ml Documented By: RODDY Dexamethasone Sodium Phosphate (DexamethasonePf 10 Mg/Ml Vial) 10 mg IV NOW ONE Stop: 05/03/24 09:32 Last Admin: 05/03/24 09:56 Dose: 10 mg Documented By: LEONOR Fluticasone Furoate (Fluticasone Furoate 200mcg 14 Puffs/Inhaler) 1 puffs INH DAILY [facility] Stop: 06/03/24 08:59 Last Admin: 05/04/24 03:16 Dose: 1 puffs Documented By: MAYCOL Furosemide (Furosemide 40 Mg/4 Ml Vial) 40 mg IV ONE ONE Stop: 05/03/24 11:45 Last Admin: 05/03/24 13:45 Dose: 40 mg Documented By: AME Guaifenesin (Guaifenesin 600 Mg Tabcr) 600 mg PO Q12 [facility] Stop: 06/02/24 11:44 Last Admin: 05/03/24 20:41 Dose: Not Given Documented By: Admin: 05/03/24 14:19 Dose: Not Given Documented By: AME Guaifenesin (Guaifenesin Sugar Free 200 Mg/10 Ml Udc) 200 mg PO BID [facility] Stop: 06/02/24 21:59 Last Admin: 05/04/24 08:23 Dose: 200 mg Documented By: Admin: 05/03/24 22:19 Dose: 200 mg Documented By: MAYCOL Magnesium Sulfate/Dextrose (Magnesium Sulfate / D5w) 1 gm in 100 mls @ 100 mls/hr IV NOW STA Stop: 05/03/24 10:30 Last Infusion: 05/03/24 11:05 Dose: Infused Documented By: Admin: 05/03/24 09:57 Dose: 100 mls/hr Documented By: LEONOR Doxycycline Hyclate 100 mg/ (Dextrose) 100 mls @ 50 mls/hr IV Q12H [facility] Stop: 05/08/24 11:44 Last Admin: 05/04/24 12:28 Dose: Not Given Documented By: Infusion: 05/04/24 03:01 Dose: Infused Documented By: Admin: 05/03/24 23:51 Dose: 50 mls/hr Documented By: Infusion: 05/03/24 15:36 Dose: Infused Documented By: Admin: 05/03/24 13:14 Dose: 50 mls/hr Documented By: AME Ipratropium Atkins (Ipratropium Atkins Neb Soln 0.02% 0.5mg/2.5ml Vial) 0.5 mg NEB QIDR [facility] Stop: 06/03/24 14:59 Last Admin: 05/04/24 15:34 Dose: Not Given Documented By: [id number] Isosorbide Mononitrate (Isosorbide Maverick Extended Rel 30 Mg Tabcr) 30 mg PO NOW ONE Stop: 05/03/24 11:46 Last Admin: 05/03/24 13:13 Dose: 30 mg Documented By: AME Levalbuterol HCl (Levalbuterol Hcl 0.63 Mg/3 Ml Neb) 0.63 mg NEB QID [facility]; Protocol Stop: 06/03/24 12:59 Last Admin: 05/04/24 14:40 Dose: Not Given Documented By: SEBASTIAN Levalbuterol HCl (Levalbuterol Hcl 0.63 Mg/3 Ml Neb) 0.63 mg NEB QIDR [facility]; Protocol Stop: 06/03/24 12:59 Last Admin: 05/04/24 15:34 Dose: Not Given Documented By: [id number] Prednisone (Prednisone 20 Mg Tab) 40 mg PO DAILY [facility] Stop: 06/03/24 08:59 Last Admin: 05/04/24 08:26 Dose: Not Given Documented By: LALA Sotalol HCl (Sotalol Hcl 80 Mg Tab) 80 mg PO NOW ONE Stop: 05/03/24 11:46 Last Admin: 05/03/24 13:13 Dose: 80 mg Documented By: AME Spironolactone (Spironolactone 25 Mg Tab) 25 mg PO NOW ONE Stop: 05/03/24 11:46 Last Admin: 05/03/24 13:13 Dose: 25 mg Documented By: AME Discharge Plan Visit Data Chief Complaint: Shortness of Breath/Dyspnea Stated Complaint: SOB ED Provider: [place] Najera Discharge Problem: Acute exacerbation of chronic obstructive pulmonary disease (COPD) Patient Disposition: Admitted As Inpatient Discharge Instructions Interventions: ED Discharge Assessment Last Done: 05/03/24 12:18
[2024-05-03] MEDS: ALBUT/IPRATROP 3MG/0.5MG NEB 3 ML VIAL NEB ONE (09:40)
[2024-05-03 09:50] LABS: Basophils # (auto) 0.03 K/uL (0.00-0.20); Basophils % (auto) 0.2 %; Eosinophils # (auto) 0.08 K/uL (0.00-0.50); Eosinophils % (auto) 0.7 %; Hematocrit (blood only) 39.5 % (37.0-47.0); Hemoglobin 12.1 g/dl (12.0-16.0); Immature Granulocytes # (auto) 0.03 K/uL (0.01-0.20); Immature Granulocytes % (auto) 0.2 %; Lymphocytes # (auto) 1.72 K/uL (1.20-3.40); Lymphocytes % (auto) 14.2 %; Mean Corpuscular Hemoglobin 29.7 pg (25.0-34.0); Mean Corpuscular Hgb Conc 30.6 g/dL (32.0-36.0); Mean Corpuscular Volume 96.8 fL (80.0-100.0); Mean Platelet Volume 11.4 fL (9.4-12.4); Monocytes # (auto) 0.94 K/uL (0.11-0.59); Monocytes % (auto) 7.8 %; Neutrophils # (auto) 9.28 K/uL (1.40-6.50); Neutrophils % (auto) 76.9 %; Platelet Count 188 K/uL (130-400); RDW Coefficient of Variation 12.8 % (11.5-14.5); RDW Standard Deviation 45.8 fL (36.4-46.3); Red Blood Count 4.08 M/uL (4.20-5.40); White Blood Count 12.08 K/ul (4.8-10.8)
[2024-05-03] MEDS: dexAMETHasone**PF** 10 MG/ML VIAL IV ONE (09:56)
--- NOTE | 2024-05-03 09:56 | XRay Report ---
XR chest 1V portable CLINICAL HISTORY: shortness of breath COMPARISON STUDY: Chest radiograph March 01, 2024. Chest CT March 02, 2024. FINDINGS: There is no pneumothorax or pleural effusion. No consolidation is present and there is no e vidence for pulmonary edema. Emphysema and a left upper lobe lesion are better depicted on CT of Sept ember 2023. The left upper lobe lesion has mildly increased in size since prior exams. IMPRESSION: 1. No acute cardiopulmonary findings. 2. 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 3. Emphysema. ACT 112: Negative or not required by law. Electronically signed by: Félix Edwards M.D. 05/03/2024 9:53 AM
[2024-05-03] MEDS: MAGNESIUM SULFATE / D5W 1 GM/100 ML BAG IV STA (09:57)
[2024-05-03 10:03] LABS: Albumin Level 3.4 gm/dl (3.4-5.0); BUN Creatinine Ratio 26.7 (10-20); Bilirubin Direct 0.1 mg/dl (0-0.2); Creatinine Clr Calc Pharmacy 68.8 ml/min; Magnesium 1.8 mg/dl (1.7-2.4); Potassium 3.8 mmol/L (3.5-5.1); Total Protein 6.4 gm/dl (6.0-8.3)
[2024-05-03 10:05] LABS: Base Excess VBG 16.4 mEq/L; HCO3 VBG 46 mmol/L; Oxygen Saturation VBG < 60.0 %; PCO2 VBG 77 mmHg (38-50); PO2 VBG 22 mmHg; pH VBG 7.38 (7.36-7.41)
[2024-05-03 10:24] LABS: Influenza A virus by PCR Negative (Neg); Influenza B virus by PCR Negative (Neg); RSV by PCR Negative (Neg); SARS CoV2 RNA(COVID-19) Ceph NEGATIVE (Negative)
[2024-05-03 10:25] LABS: INR 1.9 (0.9-1.1); Prothrombin Time 19.4 Seconds (9.0-12.0)
--- NOTE | 2024-05-03 10:55 | History & Physical Report ---
<Statement entered by Thomas Moulton DO - 05/03/24 15:15> I have seen and examined the patient and have discussed the case with the provider above. I have reviewed the advanced practitioner's documentation, and I agree with, and take responsibility for that plan of care. Patient seen and examined while still in the emergency department. She reports rapidly progression of her symptoms over the last few days. She denies any fevers. Constitutional: Patient in moderate distress Lungs: Decreased breath sounds, prolonged expiratory phase, poor airflow, some rhonchi, faint wheezes CV: S1-S2 regular Discussed advanced directives with the patient, explained in more detail her chronic and advanced lung disease and how respiratory failure could potentially lead to cardiac failure. Ultimately patient would not want to be kept alive on a ventilator and requested not to be intubated or have resuscitation efforts. Patient's CODE STATUS will be adjusted to DNR/DNI. Did discuss potential BiPAP treatment with the patient. She is unsure whether she will be able to tolerate that but may benefit from that. Reviewed data Discussed plan of care with RAYNA as outlined below Date of Service May 03, 2024 Assessment & Plan (1) Acute exacerbation of chronic obstructive pulmonary disease (COPD): (2) Hematoma of left lower extremity: (3) Pulmonary hypertension: (4) Left upper lobe pulmonary nodule: (5) Anticoagulated on Coumadin: (6) Prediabetes: (7) Hyperlipidemia: (8) CAD (coronary artery disease), [place] coronary artery: (9) Hypertension: (10) Chronic diastolic (congestive) heart failure: Plan This is an 79-year-old female with PMH of COPD with chronic hypoxic respiratory failure on 4 L nasal cannula O2 at baseline, known lung nodule, dyslipidemia, prediabetes, paroxysmal atrial fibrillation on Coumadin, chronic diastolic heart failure, pulmonary hypertension, CAD (s/p MAE to RCA), tobacco use and other medical problems listed below who presents to the ED with progressive shortness of breath x few weeks and was found to have a COPD exacerbation. Acute on chronic hypoxic respiratory failure COPD exacerbation Hypoxic on baseline 4L NC O2, progressive SOB x 3 weeks ABG reassuring with normal range pH, appears compensated with elevated CO2 S/p albuterol neb, IV dexamethasone in ED Continue NC O2, bipap PRN, Duonebs QIDR, Breztri inh BID, mucinex, hypertonic nebs BID, flutter valve, doxycycline, prednisone Chronic diastolic heart failure Pulmonary HTN Given 40mg IV lasix in ED given missed AM diuretic dose, BLE edema Reassess volume status tomorrow Continue spironolactone Left lung nodule History of tobacco use - 64 pack year history Per Dr. Clarke's pulm note from Feb 2024, enlarging Left upper lobe nodule 1.8 X 2.3 cm, SUV 5.6 on PET scan 01/22/2024 Redemonstrated on today's CXR Patient aware, does not want tissue diagnostic work up, or oncology evaluation/Rx including chemo or Radiation therapy regarding SUSHIL nodule Paroxysmal A Fib Sinus bradycardia on admitting EKG Given missed AM dose of Sotalol Continue coumadin with daily INR LLE hematoma Noted on previous admission Following with [facility] wound care, wound vac in place Coumadin resumed last month Wound care nurse consulted CAD Continue aspirin, Imdur, patient discontinued statin in Feb 2024 per PCP note Prediabetes BSG 116 on admission Recheck a1c in AM, likely steroid component DVT Ppx: coumadin Code status: DNR/DNI per discussion with patient PCP: Korina Dispo: Admitted to PCU Patient seen in collaboration with Dr. Moulton. Please see addendum. I spent a total of 75 minutes coordinating, documenting, and providing care for this patient excluding time spent in the performance of separately billed services. History of Present Illness Chief Complaint: SOB Primary Care Provider: Khoa Hui MD This is an 79-year-old female with PMH of COPD with chronic hypoxic respiratory failure on 4 L nasal cannula O2 at baseline, known lung nodule, dyslipidemia, prediabetes, paroxysmal atrial fibrillation on Coumadin, chronic diastolic heart failure, pulmonary hypertension, CAD (s/p AME to RCA), tobacco use and other medical problems listed below who presents to the ED with progressive shortness of breath x few weeks. Patient has been admitted to our service in February and March for acute hypoxic respiratory failure in setting of COPD exacerbation/cor pulmonale and A-fib. Over the past few weeks, patient has had progressive shortness of breath at home despite being compliant with her baseline 4 L nasal cannula O2. Was prescribed a prednisone taper by PCP at the beginning of April but states it has not helped much. Started to have t rouble ambulating even within her home from her bedroom to her kitchen, so presented today for further evaluation. During last admission, Coumadin was discontinued due to hematoma which she now has a wound VAC for and follows with [facility] wound clinic. Per PCP note from March, Coumadin has been resumed in setting of paroxysmal A-fib. States she has been compliant with meds including diuretic, but did not take any this morning because she was too short of breath. Lives alone at home and ambulates without assistive device. Denies any recent fever, chills. Less productive cough than usual and feels she cannot clear her secretions. No chest pain, palpitations, nausea, vomiting, abd pain, dysuria, diarrhea or constipation. States she has not been smoking over the past month since starting oxygen. Allergies Allergy/AdvReac Type Severity Reaction Status Date / Time dog dander Allergy Severe congestion, Verified 04/22/24 07:46 SOB valsartan Allergy Severe Edema Verified 04/22/24 07:46 face/lips/tongue. levofloxacin [From Levaquin] Allergy Intermediate ITCHY Verified 04/22/24 07:46 HIVES ON TRUNK AND LEGS nickel Allergy Mild Rash. Verified 04/22/24 07:46 NAI Inhibitors AdvReac Intermediate Cough. Verified 04/22/24 07:46 influenza virus vaccine ts AdvReac Intermediate SINUS Verified 04/22/24 07:46 [id number] (36 mos,up) PRESSURE/DRAINAGE [From Fluarix] Home Medications Medication Instructions Recorded Confirmed Type nitroglycerin 0.4 mg sublingual 0.4 mg sublingual DIRECTED PRN 04/19/19 05/03/24 History tablet Chest Pain sotalol 80 mg tablet 80 mg PO BID 04/19/19 05/03/24 History aspirin 81 mg tablet,delayed 81 mg PO QAM 01/17/23 05/03/24 History release azelastine 137 mcg (0.1 %) nasal 1 spray intranasal AMHS 01/17/23 05/03/24 History spray spironolactone 25 mg tablet 25 mg PO QAM 01/17/23 05/03/24 History albuterol sulfate 2.5 mg/3 mL 2.5 mg inhalation DIRECTED PRN 06/26/23 05/03/24 History (0.083 %) solution for nebulization Shortness Of Breath Or Wheezing isosorbide mononitrate 30 mg 30 mg PO QAM #30 tabs 06/27/23 05/03/24 Rx tablet,extended release 24 hr albuterol sulfate 90 mcg/actuation 2 inh inhalation Q4H PRN Shortness 01/02/24 05/03/24 History aerosol inhaler Of Breath Or Wheezing budesonide 160 mcg-glycopyr 9 2 inh inhalation AMHS #1 inhaler 02/09/24 05/03/24 Rx mcg-formot 4.8 mcg/actuation HFA inhaler (Breztri Aerosphere) furosemide 20 mg tablet 40 mg (2 x 20 mg) PO QAM #60 tabs 02/09/24 05/03/24 Rx prednisone 10 mg tablet 10 mg PO DIRECTED 04/10/24 05/03/24 History warfarin 2.5 mg tablet 2.5 mg PO SUMOWEFR@1600 04/10/24 05/03/24 History warfarin 2.5 mg tablet 1.25 mg PO TUTHSA@1600 05/03/24 05/03/24 History Past Med/Surg History Problem List (Updated 05/03/24 @ 12:13 by Ana Cowart PA-C) Hematoma of left lower extremity (Acute) Cor pulmonale Pulmonary hypertension Left upper lobe pulmonary nodule Anticoagulated on Coumadin (Acute) Acute exacerbation of chronic obstructive pulmonary disease (COPD) (Acute) COPD (chronic obstructive pulmonary disease) (Chronic) Prediabetes (Chronic) Hyperlipidemia (Chronic) Medical History (Updated 05/03/24 @ 12:13 by Ana Cowart PA-C) Chronic diastolic (congestive) heart failure Tobacco abuse CAD (coronary artery disease), [place] coronary artery Hypertension Emphysema of lung Surgical History S/P right coronary artery (RCA) stent placement H/O: hysterectomy S/P appendectomy Family History Other Colon cancer Social History Smoking Status: Former smoker Tobacco Type: Cigarettes Cigarettes Per Day: smokes occasionally, some days doesn't smoke, other days smokes 3-5 cigs; Second Hand Exposure: No; Do You Dip or Chew Tobacco: No; Hx Alcohol Use: Yes Alcohol type: wine Alcohol Intake Frequency Comment: 1 glass of wine 3-5 days per week Hx Substance Use: No Preferred Language: Hebrew Communication Ability: Effective Visual Impairment: Limited Hearing Ability: Normal Director Of Research Required: No Beliefs That Will Affect Care: None marital status: / Current Living Situation: Alone How many Children do You have: 2 Feels Safe at Home: Yes Diet: regular caffeine: Yes during the past year weight has: decreased > 10 lbs Assistive Devices: Oxygen - Continuous Review of Systems Review of Systems: At least ten systems reviewed and negative except as noted in the HPI. Physical Exam Physical Exam: General Appearance: WD/WN, vitals as above, NAD, sitting up in bed, pleasant, coversationally dyspneic Head: normocephalic, atraumatic Eyes: normal inspection, PERRL, conjunctivae normal, anicteric sclerae ENT: external ear and nose normal, oropharynx normal Neck: normal visual inspection, trachea midline, no thyromegaly Respiratory: increased respiratory effort, diminished breath sounds, diffuse expiratory wheezes, + accessory muscle use Cardiovascular: regular rate, rhythm,normal peripheral pulses, 1+ BLE edema. Vessels: no JVD Chest: normal inspection of chest Abdomen/GI: normal bowel sounds, soft, nontender, no hepatosplenomegaly Extremities/Musculoskeletal: LLE with nai bandage in place, wound vac. No cyanosis or clubbing, extremities motor strength 5/5 Neurologic: PERRL, EOMI, accommodation nl, no face palsy, no dysarthria, CN's II-XI intact bilaterally and moves all extremities Psychiatric: A+Ox3, euthymic affect Skin: no rashes, normal color, warm/dry Results & Data Results & Data Vital Signs (Past 12 Hours) Vital Signs Temp Pulse Pulse Pulse Resp BP BP 05/03/24 09:40 59 L 17 05/03/24 09:28 67 19 137/57 L 05/03/24 09:28 05/03/24 09:28 05/03/24 09:28 36.7 C 67 19 137/57 L 05/03/24 09:17 62 Pulse Ox O2 Del Method O2 Flow Rate 05/03/24 09:40 100 Nasal Cannula 4 05/03/24 09:28 92 Nasal Cannula 05/03/24 09:28 Nasal Cannula 4 05/03/24 09:28 Nasal Cannula 05/03/24 09:28 92 Nasal Cannula 4 05/03/24 09:17 Laboratory Results Short CBC 05/03/24 Range/Units 09:20 WBC 12.08 H (4.8-10.8) K/ul Hgb 12.1 (12.0-16.0) g/dl Hct 39.5 (37.0-47.0) % Plt Count 188 (130-400) K/uL BMP 05/03/24 09:20 Sodium 141 Potassium 3.8 Chloride 96 L Carbon Dioxide 42 H* BUN 16 Creatinine 0.60 Glucose 117 H Calcium 9.0 Liver Function 05/03/24 Range/Units 09:20 Total Bilirubin 1.0 (0.2-1.0) mg/dl Direct Bilirubin 0.1 (0-0.2) mg/dl AST 16 (13-39) U/L ALT 19 (7-52) U/L Alkaline Phosphatase 84 (34-104) U/L Albumin 3.4 (3.4-5.0) gm/dl Diagnostic Findings Chest X-Ray 05/03/24 09:28 XR chest 1V portable CLINICAL HISTORY: shortness of breath COMPARISON STUDY: Chest radiograph March 01, 2024. Chest CT March 02, 2024. FINDINGS: There is no pneumothorax or pleural effusion. No consolidation is present and there is no evidence for pulmonary edema. Emphysema and a left upper lobe lesion are better depicted on CT of March 02, 2024. The left upper lobe lesion has mildly increased in size since prior exams. IMPRESSION: 1. No acute cardiopulmonary findings. 2. 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 3. Emphysema. ACT 112: Negative or not required by law. Electronically signed by: Félix Edwards M.D. 05/03/2024 9:53 AM (2) Hematoma of left lower extremity Encounter type: subsequent encounter Qualified Code(s): S80.12XD - Contusion of left lower leg, subsequent encounter (8) CAD (coronary artery disease), [place] coronary artery Associated angina: with unstable angina [place] vs. transplanted heart: benton heart Qualified Code(s): I25.110 - Atherosclerotic heart disease of [place] coronary artery with unstable angina pectoris
[2024-05-03 11:47] LABS: iSTAT Arterial Blood Gas HCO3 39 meg/L (19-24); iSTAT Arterial Blood Gas pCO2 65 mmHg (35-46); iSTAT Arterial Blood Gas pH 7.39 (7.35-7.45); iSTAT Arterial Blood Gas pO2 73 mmHg (80-95); iSTAT Carbon Dioxide 41 mmol/L (24-31); iSTAT Hematocrit 35 % (37-47); iSTAT Hemoglobin 11.9 g/dl (12.0-16.0); iSTAT Potassium 3.5 mmol/L (3.3-5.0); iSTAT Sample Type Arterial; iSTAT Sodium 137 mmol/L (135-144)
--- OUTSIDE RECORDS SUMMARY | 2024-05-03 12:59 | External Medical Summary | Summary of Care ---
Author Name Unknown Organization [facility] Address [address] [place] [address] Phone [phone] Care Team Providers Care Scowman Name Role Phone Khoa Hui MD Primary Care Provider + Reason for Visit * Reason Onset Date Comments Status Check 05/03/2024 Order Request 05/03/2024 Encounter Details Date Type Department Care Team (Late st Contact Info) Description 05/03/2024 Telephone Family Practice [facility] [address] [facility] [place] [address] Khoa Hui MD [address] [facility] [place] [id number] Status Check; Order Request Allergies Active Allergy Reactions Criticality [...] as of this encounter (statuses as of 05/03/2024) Medications Aspirin EC 81 MG Oral Tablet Delayed Release Take 1 Tablet by mouth in the morning. 01/22/20 22 Active Azelastine HCl 0.1 % Nasal Solution (Astelin)Indicatio ns:Rhinitis, nonallergic Administer 1 [place] into nostril in the morning and 1 [place] before bedtime. 90 mL 3 04/05/20 23 Active Isosorbide Mononitrate ER 30 MG Oral Tablet Extended Release 24 Hour (Imdur)Indications :CAD in [place] artery Take 1 Tablet by mouth in the morning. 90 Tablet 3 07/05/19 24 Active Nitroglycerin 0.4 MG Sublingual Tablet Sublingual (Nitrostat)Indicat ions:CAD in [place] artery Place 1 Tablet under the tongue [...] cations:COPD, group D, by GOLD 2017 classification ([facility]) Inhale 2 Puffs by mouth in the morning and 2 Puffs before bedtime. 32.1 g 3 02/21/20 24 Active ProAir HFA 108 (90 Base) MCG/ACT Inhalation Aerosol SolutionIndication s:COPD, group D, by GOLD 2017 classification ([facility]) Inhale 2 Puffs by mouth [...] as of this encounter (statuses as of 05/03/2024) Active Problems Problem Noted Date Diagnosed Date Chronic respiratory failure with hypoxia 024 COPD, group D, by GOLD 2017 classification 05/16 Overview: Per COPD GOLD Classification Bladder mass 01/05/2022 Ureteral lesion, [place], right 01/05/2022 Chronic diastolic heart failure 07/01/2021 Pulmonary hypertension 07/01/2021 Lung nodule 07/01/2021 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 10/25/2018 Prediabetes 07/31/2018 Elevated TSH 07/31/2018 CAD in [place] artery 03/20/2015 Venous insufficiency 03/12/2014 Overview (03/12/2014): 03/18 US --no DVT LLE Paroxysmal atrial fibrillation 02/04/2014 Overview (03/28/2018): 01/16-[facility] hosp w/rapid response. Change to toprol. Start xarelto. 2007? converted with IV diltiazem Routine general medical exam ination at a health care facility 09/05/2013 Overview (02/22/2024): 02/26 [facility] normal EF [...] as of this encounter (statuses as of 05/03/2024) Resolved Problems Problem Noted Date Diagnosed Date [...] as of this encounter (statuses as of 05/03/2024) Immunizations Name Administration Dates Next Due COVID-19 [...] encounter Miscellaneous Notes * Telephone Encounter - Maranda Roberto OSA - 05/03/2024 9:51 AM EST Patient's daughter Jo Ann calling to ask for a new order be placed for the Breztri Aerosphere Inhaler through [facility] Saying patient is on her last inhaler and only has a few days on this inhaler Patient has already used the 3 inhalers that were authorized - need new prescription sent to [facility] for the weekend [facility] prior auth phone number for speaking to a sales development representative to get [employer]ure service [phone] - Please review and advise pt daughter Jo Ann * Telephone Encounter - Carole Law PHARM Tech - 05/03/2024 9:14 AM EST Pt calling to request Breztri Aerosphere [id number] MCG/ACT Inhalation Aerosol (Cggusrq-Cxezobqeior-Veadgeicva) . Informed pt that RX is available at their pharmacy. Pt verbalized understanding and stated they will check with their pharmacy regarding this medication. Thank you, Carole Lawradio machinist Conference Service Coordinator II [facility] 05/03/2024, 9:14 AM documented in this encounter Plan of Treatment Upcoming Encounters Date Type Department Care Team (Late st Contact Info) Description 05/17/2024 12:30 PM EST Imaging Radiology [facility] 1st Floor, [place] [address] [place] [id number] 05/20/2024 12:40 PM EST Office Visit Pulmonary Medicine, [facility] [address] [facility] [place] [address] Segundo Clarke MD [address] [place] [id number] 05/20/2024 5:40 PM EST Anticoagulation Pharmacy, [facility] [address] [facility] [place] [address] Pharmacist1, [facility] [address] [facility] [place] [address] 08/30/2024 12:20 PM EDT Office Visit Family Practice [facility] [address] [place] [address] Khoa Hui MD [address] [place] [place] [id number] 03/18/2025 1:40 PM EDT Office Visit Family Practice [facility] [address] [place] [address] Khoa Hui MD [address] [place] [place] [id number] Health Maintenance Due Date Last Done Comments Alpha-1 Antitrypsin 1961 Pneumococcal Vaccine: 65+ Years (2 of 2 - PCV) 05/13/2010 05/13/2009 Adult Wellness Visit 03/31/2018 03/31/2017 DXA Scan 09/18/2018 09/19/2011, 09/19/2011 Depression Screening 10/26/2019 10/25/2018 *ADVANCE DIRECTIVE NOT ON FILE 07/20/2021 DTap/Tdap Vaccines (2 - Td or Tdap) 09/13/2021 09/14/2011 HbA1c 07/25/2023 07/25/2022, 09/0 09/2019, 09/27/2018 COVID-19 Vaccine ( - season) 2024 01/26/2022, 03/08/2021, 08/20/2020, Additional [...] Documents on File Type Date Recorded Patient Head Of Data Expl anation Power of Air Traffic Control Operator 03/20/2024 signed on 02/02/2022 * Full [...] Advance Directives occurred with: Patient Care Teams Scowman Relationship Specialty Start Date End Date Khoa Hui MD [address] [place] [address] PCP - General Family Medicine 05/19/14 documented as of this encounter
--- OUTSIDE RECORDS SUMMARY | 2024-05-03 12:59 | External Medical Summary | Summary of Care ---
Author Name Unknown Organization [facility] Address [address] [place] [address] Phone [phone] Care Team Providers Care Manuscript Editor Name Role Phone Khoa Hui MD Primary Care Provider + Reason for Visit * Reason Onset Date Comments Status Check 05/03/2024 Order Request 05/03/2024 Encounter Details Date Type Department Care Team (Late st Contact Info) Description 05/03/2024 Telephone Family Practice [facility] [address] [place] [address] Khoa Hui MD [address] [facility] [place] [address] Status Check; Order Request [...] Nasal Solution (Astelin)Indicatio ns:Rhinitis, nonallergic Administer 1 [place] into nostril in the morning and 1 [place] before bedtime. 90 mL 3 04/05/20 23 Active Isosorbide Mononitrate ER 30 MG Oral Tablet Extended Release 24 Hour (Imdur)Indications :CAD in [place] artery Take 1 Tablet by mouth in the morning. 90 Tablet 3 07/05/19 24 Active Nitroglycerin 0.4 MG Sublingual Tablet Sublingual (Nitrostat)Indicat ions:CAD in [place] artery Place 1 Tablet under the tongue [...] morning.. 180 Tablet 2 02/21/20 24 Active ProAir HFA 108 (90 [...] TWICE A DAY 180 Tablet 3 04/09/20 24 Active Albuterol Sulfate (2.5 MG/3ML) 0.083% Inhalation Nebulization Solution (Proventil) Inhale 1 Vial via nebulizer every 4 hours as needed for Wheezing. Or cough / tight feeling 300 mL 3 04/16/20 24 Active Breztri Aerosphere 160-9-4.8 MCG/ACT Inhalation Aerosol (Budeson-Glycopyrr ol-Formoterol)Alla cations:COPD, group D, by GOLD 2017 classification ([facility]) Inhale 2 Puffs by mouth in the morning and 2 Puffs before bedtime. 32.1 g 3 05/03/20 24 Active Breztri Aerosphere 160-9-4.8 MCG/ACT Inhalation Aerosol (Budeson-Glycopyrr ol-Formoterol)Alal cations:COPD, group D, by GOLD 2017 classification ([facility]) Inhale 2 Puffs by mouth 2 times a day. 10.7 g 2 05/03/20 24 Active Breztri Aerosphere 160-9-4.8 MCG/ACT Inhalation Aerosol (Budeson-Glycopyrr ol-Formoterol)Alla cations:COPD, group D, by GOLD 2017 classification ([facility]) Inhale 2 Puffs by mouth in the morning and 2 Puffs before bedtime. 32.1 g 3 02/21/20 24 024 Discontin ued(Refil l) documented as of this encounter (statuses as of 05/03/2024) Active Problems Problem Noted Date Diagnosed Date Chronic respiratory failure with hypoxia 024 COPD, group D, by GOLD 2017 classification 05/16 Overview: Per COPD GOLD Classification Bladder mass 01/05/2022 Ureteral lesion, [place], right 01/05/2022 Chronic diastolic heart failure 07/01/2021 Pulmonary hypertension 07/01/2021 Lung nodule 07/01/2021 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 10/25/2018 Prediabetes 07/31/2018 Elevated TSH 07/31/2018 CAD in [place] artery 03/20/2015 Venous insufficiency 03/12/2014 Overview (03/12/2014): 03/18 --no DVT LLE Paroxysmal atrial fibrillation 02/04/2014 Overview (03/28/2018): 01/16-[facility] hosp w/rapid response. Change to toprol. Start xarelto. 2007? converted with IV diltiazem Routine general medical exam ination at a [facility] facility 09/05/2013 Overview (02/22/2024): 02/26 TTE [facility] normal EF Grade II Ghosh DYs, mild [...] encounter Miscellaneous Notes * Telephone Encounter - Vero Gonzales LPN - 05/03/2024 10:16 AM EST Daughter aware that inhaler sent to both mail order and [facility] local pharmacy. No indication that it needed PA, but daughter asked about that. We will see if pharmacy contacts usabout any PA needed. * Addendum Note - Laisha Guthrie MD - 05/03/2024 10:14 AM ESTAddended by: LAISHA GUTHRIE on: 05/03/2024 10:14 AM Modules accepted: Orders * Telephone Encounter - Laisha Guthrie MD - 05/03/2024 10:13 AM EST Rx sent to mail order and [facility]. * Addendum Note - Vero Gonzales LPN - 05/03/2024 10:00 AM ESTAddended by: VERO GONZALES on: 05/03/2024 10:00 AM Modules accepted: Orders * Telephone Encounter - Vero Gonzales LPN - 05/03/2024 9:58 AM EST Needs [facility] * Telephone Encounter - Maranda Roberto OSA [...] authorized - need new prescription sent to [facility] for the weekend [facility] prior auth phone number for speaking to a small business sales representative to get [employer] service [phone] - Please review and advise pt daughter Jo Ann * Telephone Encounter - Carole Law PHARM Tech - 05/03/2024 9:14 AM EST Pt calling to request Breztri Aerosphere 160-9-4.8 MCG/ACT Inhalation Aerosol (Acpxsdz-Wpwjclecetu-Ocwcfrkdjs) . Informed pt that RX is available at their pharmacy. Pt verbalized understanding and stated they will check with their pharmacy regarding this medication. Thank you, Carole Law,[facility] Hyperbaric Technician II [facility] ([facility]) 05/03/2024, 9:14 AM documented in this encounter Plan of Treatment Upcoming Encounters Date Type Department Care Team (Late st Contact Info) Description 05/17/2024 12:30 PM EST Imaging Radiology [facility]st [facility] [address] [facility] [place] [address] 05/20/2024 12:40 PM EST Office Visit Pulmonary Medicine, [facility] 132 [facility] [place] [address] Segundo Clarke MD [address] [facility] [place] [address] 05/20/2024 5:40 PM EST Anticoagulation Pharmacy, [facility] 200 [facility] [place] [address] Pharmacist1, [facility] 200 [facility] [place] [address] 08/30/2024 12:20 PM EDT Office Visit Family Practice [facility] 132 [facility] [place] [address] Khoa Hui MD [address] [place] [address] 03/18/2025 1:40 PM EDT Office Visit Family [facility] [address] [place] [address] Khoa Hui MD [address] [place] [address] Health Maintenance Due Date Last Done Comments [...] group D, by GOLD 2017 classification (HCC) documented in this encounter Advance Directives Documents on File Type Date Recorded Patient Machine Tool Operator Expl anation Power of Cork Molder 03/20/2024 signed on 02/02/2022 * Full Code [...] Advance Directives occurred with: Patient Care Teams Manuscript Editor Relationship Specialty Start Date End Date Khoa Hui MD [address] [place] [address] PCP - General Family Medicine 05/19/14 documented as of this encounter
--- OUTSIDE RECORDS SUMMARY | 2024-05-03 12:59 | External Medical Summary | Summary of Care ---
Author Name Unknown Organization [facility] Address [address] [place] [address] Phone [phone] Care Team Providers Care Box Toe Stitcher Name Role Phone Khoa Hui MD Primary Care Provider + Reason for Visit * Reason Onset Date Comments Status Check 05/03/2024 Order Request 05/03/2024 Encounter Details Date Type Department Care Team (Late st Contact Info) Description 05/03/2024 Telephone Family Practice [facility] [address] [facility] [place] [address] Khoa Hui MD [address] [employer] [facility] [place] [address] Status Check; Order [...] Nasal Solution (Astelin)Indicatio ns:Rhinitis, nonallergic Administer 1 [place] into nostril in the morning and 1 [place] before bedtime. 90 mL 3 04/05/20 23 Active Isosorbide Mononitrate ER 30 MG Oral Tablet Extended Release 24 Hour (Imdur)Indications :CAD in [place] artery Take 1 Tablet by mouth in the morning. 90 Tablet 3 07/05/19 24 Active Nitroglycerin 0.4 MG Sublingual Tablet Sublingual (Nitrostat)Indicat ions:CAD in [place] artery Place 1 Tablet under the tongue [...] cations:COPD, group D, by GOLD 2017 classification ([place] [...] Classification Bladder mass 01/05/2022 Ureteral lesion, [place], right 01/05/2022 Chronic diastolic heart failure 07/01/2021 Pulmonary hypertension 07/01/2021 Lung nodule 07/01/2021 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 10/25/2018 Prediabetes 07/31/2018 Elevated TSH 07/31/[address] [place] artery 03/20/2015 Venous insufficiency 03/12/2014 Overview (03/12/2014): 03/18 US --no DVT LLE Paroxysmal atrial fibrillation 02/04/2014 Overview (03/28/2018): 01/16-[facility] hosp w/rapid response. Change to toprol. Start xarelto. 2007? converted with IV diltiazem Routine general medical exam ination at a health care facility 09/05/2013 Overview (02/22/2024): 02/26 TTE [facility] normal EF Grade II Ghosh DYs, [...] encounter Miscellaneous Notes * Addendum Note - Vero Gonzales LPN [...] authorized - need new prescription sent to [facility] for the weekend [employer] prior auth phone number for speaking to a senior outside sales representative to get quick service [phone] - Please review and advise pt daughter Jo Ann * Telephone Encounter - Carole Law PHARM Tech - 05/03/2024 9:14 AM EST Pt calling to request Breztri Aerosphere 160-9-4.8 MCG/ACT Inhalation Aerosol (Bzjmbnx-Xjexvltvyzy-Wnifkxndyj) . Informed pt that RX is available at their pharmacy. Pt verbalized understanding and stated they will check with their pharmacy regarding this medication. Thank you, Carole Law,[facility] Sign Maker II [facility] ([facility]) 05/03/2024, 9:14 AM documented in this encounter Plan of Treatment Upcoming Encounters Date Type Department Care Team (Late st Contact Info) Description 05/17/2024 12:30 PM EST Imaging Radiology [facility] [address] [facility] [place] [address] 05/20/2024 12:40 PM EST Office Visit Pulmonary Medicine, [facility] [address] [facility] [place] [address] Segundo Clarke MD [address] [facility] [place] [address] 05/20/2024 5:40 PM EST Anticoagulation Pharmacy, [facility] [address] [facility] [place] [address] Pharmacist1, [facility] [address] [facility] [place] [address] 08/30/2024 12:20 PM EDT Office Visit Family Practice [facility] [address] [facility] [place] [address] Khoa Hui MD [address] [place] [address] 03/18/2025 1:40 PM EDT Office Visit Family Practice [facility] [address] [place] [address] Khoa Hui MD [address] [place] [address] Health Maintenance Due Date Last Done Comments [...] Documents on File Type Date Recorded Patient Membership Advisor Expl anation Power of Seo Strategist 03/20/2024 signed on 02/02/2022 * Full Code [...] Advance Directives occurred with: Patient Care Teams Box Toe Stitcher Relationship Specialty Start Date End Date Khoa Hui MD [address] [place] [address] PCP - General Family Medicine 05/19/14 documented as of this encounter
--- OUTSIDE RECORDS SUMMARY | 2024-05-03 12:59 | External Medical Summary | Summary of Care ---
Author Name Unknown Organization [facility] Address [address] [place] [address] Phone [phone] Care Team Providers Care Slip Cover Estimator Name Role Phone Khoa Hui MD Primary Care Provider + Reason for Visit * Reason Onset Date Comments Status Check 05/03/2024 Encounter Details Date Type Department Care Team (Late st Contact Info) Description 05/03/2024 Telephone Family Practice [facility] [address] [facility] [address] Khoa Hui MD [address] [facility] [place] [address] Status Check Allergies Active Allergy Reactions Criticality Noted Date [...] Tablet by mouth in the morning. 01/22/20 Active Azelastine HCl 0.1 % Nasal Solution (Astelin)Indicatio ns:Rhinitis, nonallergic Administer 1 [place] into nostril in the morning and 1 [place] before bedtime. 90 mL 3 04/05/20 23 Active Isosorbide Mononitrate ER 30 MG Oral Tablet Extended Release 24 Hour (Imdur)Indications :CAD in [place] artery Take 1 Tablet by mouth in the morning. 90 Tablet 3 07/05/19 24 Active Nitroglycerin 0.4 MG Sublingual Tablet Sublingual (Nitrostat)Indicat ions:CAD in [place] artery Place 1 Tablet [...] cations:COPD, group D, by GOLD 2017 classification ([facility] [...] [place] artery 03/20/2015 Venous insufficiency 03/12/2014 Overview (03/12/2014): 03/18 US --no DVT LLE Paroxysmal atrial fibrillation 02/04/2014 Overview (03/28/2018): 01/16-[facility] hosp w/rapid response. Change to toprol. Start xarelto. 2007? converted with IV diltiazem Routine general medical exam ination at a health care facility 09/05/2013 Overview (02/22/2024): 02/26 TTE [facility] normal [...] encounter Miscellaneous Notes * Telephone Encounter - Carole Law PHARM Tech - 05/03/2024 9:14 AM EST Pt calling to request Breztri Aerosphere 160-9-4.8 MCG/ACT Inhalation Aerosol (Oabanyw-Wydwwukkikt-Razormnghe) . Informed pt that RX is available at their pharmacy. Pt verbalized understanding and stated they will check with their pharmacy regarding this medication. Thank you, Carole Law CPhT Diamond Powder Mixer II [facility] ([facility]) 05/03/2024, 9:14 AM documented in this encounter Plan of Treatment Upcoming Encounters Date Type Department Care Team (Late st Contact Info) Description 05/17/2024 12:30 PM EST Imaging Radiology [facility] [address] [place] [address] 05/20/2024 12:40 PM EST Office Visit Pulmonary Medicine, [address] [place] [address] Segundo Clarke MD [address] [place] [address] 05/20/2024 5:40 PM EST Anticoagulation Pharmacy, [facility] 200 [facility] [place] [address] Pharmacist1, [facility] 200 [facility] [place] [address] 08/30/2024 12:20 PM EDT Office Visit [facility] [address] [place] [address] Khoa Hui MD [address] [place] [address] 03/18/2025 1:40 PM EDT Office Visit [facility] [address] [place] [address] Khoa Hui MD [address] [place] [address] Health Maintenance Due Date Last Done Comments [...] Documents on File Type Date Recorded Patient Cap Maker Expl anation Power of Pulp Maker 03/20/2024 signed on 02/02/2022 * Full Code [...] Advance Directives occurred with: Patient Care Teams Slip Cover Estimator Relationship Specialty Start Date End Date Khoa Hui MD [address] [place] [address] PCP - General Family Medicine 05/19/14 documented as of this encounter
--- OUTSIDE RECORDS SUMMARY | 2024-05-03 12:59 | External Medical Summary | Summary of Care ---
Author Name Unknown Organization [facility] Address [address] [place] [address] Phone [phone] Care Team Providers Care Hair Dryer Name Role Phone Khoa Hui MD Primary Care Provider + Reason for Visit * Reason Onset Date Comments Status Check 05/03/2024 Order Request 05/03/2024 Encounter Details Date Type Department Care Team (Late st Contact Info) Description 05/03/2024 Telephone Family Practice [facility] [address] [place] [address] Khoa Hui MD [address] [facility] [place] [address] Status Check; Order Request [...] Nasal Solution (Astelin)Indicatio ns:Rhinitis, nonallergic Administer 1 [place] into nostril in the morning and 1 [place] before bedtime. 90 mL 3 04/05/20 23 Active Isosorbide Mononitrate ER 30 MG Oral Tablet Extended Release 24 Hour (Imdur)Indications :CAD in [place] artery Take 1 Tablet by mouth in the morning. 90 Tablet 3 07/05/19 24 Active Nitroglycerin 0.4 MG Sublingual Tablet Sublingual (Nitrostat)Indicat ions:CAD in [place] artery Place 1 Tablet under the tongue [...] s:COPD, group D, by GOLD 2017 classification ([facility]) Inhale 2 Puffs by mouth [...] cations:COPD, group D, by GOLD 2017 classification ([facility]) Inhale 2 Puffs by mouth in the morning and 2 Puffs before bedtime. 32.1 g 3 05/03/20 24 Active Breztri Aerosphere 160-9-4.8 MCG/ACT Inhalation Aerosol (Budeson-Glycopyrr ol-Formoterol)Alla cations:COPD, group D, by GOLD 2017 classification ([facility]) Inhale 2 Puffs by mouth 2 times a day. 10.7 g 2 05/03/20 24 Active Breztri Aerosphere 160-9-4.8 MCG/ACT Inhalation Aerosol (Budeson-Glycopyrr ol-Formoterol)Alla cations:COPD, group D, by GOLD 2017 classification ([facility]) Inhale 2 Puffs by mouth [...] GOLD Classification Bladder mass 01/05/2022 Ureteral lesion, [place], right 01/05/2022 Chronic diastolic heart failure 07/01/2021 Pulmonary hypertension 07/01/2021 Lung nodule 07/01/2021 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 10/25/2018 Prediabetes 07/31/2018 Elevated TSH 07/31/2018 CAD in [place] artery 03/20/2015 Venous insufficiency 03/12/2014 Overview (03/12/2014): 03/18 --no DVT LLE Paroxysmal atrial fibrillation 02/04/2014 Overview (03/28/2018): 01/16-[facility] hosp w/rapid response. Change to toprol. Start xarelto. 2007? converted with IV diltiazem Routine general medical exam ination at a [facility] facility 09/05/2013 Overview (02/22/2024): 02/26 TTE [facility] normal EF Grade II Ghosh DYs, [...] encounter Miscellaneous Notes * Addendum Note - Laisha Guthrie MD - 05/03/2024 10:14 AM ESTAddended by: LAISHA GUTHRIE on: 05/03/2024 10:14 AM Modules accepted: Orders * Telephone Encounter - Laisha Guthrie MD - 05/03/2024 10:13 AM EST Rx sent to mail order and [facility]. * Addendum Note - Vero Gonzales [...] authorized - need new prescription sent to [facility] for the weekend [facility] prior auth phone number for speaking to a student services representative to get nooked service [phone] - Please review and advise pt daughter Jo Ann * Telephone Encounter - Carole Law PHARM Tech - 05/03/2024 9:14 AM EST Pt calling to request Breztri Aerosphere 160-9-4.8 MCG/ACT Inhalation Aerosol (Wmuyyld-Ccgyveyvcqc-Rmuvwbybta) . Informed pt that RX is available at their pharmacy. Pt verbalized understanding and stated they will check with their pharmacy regarding this medication. Thank you, Carole Law CPhT Slate Cutter Operator II [facility] 05/03/2024, 9:14 AM documented in this encounter Plan of Treatment Upcoming Encounters Date Type Department Care Team (Late st Contact Info) Description 05/17/2024 12:30 PM EST Imaging Radiology [facility] 1st Floor, [place] [address] [place] [address] 05/20/2024 12:40 PM EST Office Visit Pulmonary Medicine, [facility] [address] [place] [address] Segundo Clarke MD [address] [place] [address] 05/20/2024 5:40 PM EST Anticoagulation Pharmacy, [facility] 200 [facility] [place] [address] Pharmacist1, [facility] [address] [facility] [place] [address] 08/30/2024 12:20 PM EDT Office Visit [facility] [address] [place] [address] Khoa Hui MD [address] [place] [address] 03/18/2025 1:40 PM EDT Office Visit [facility] [address] [place] [address] Khoa Hui MD [address] [place] [address] Health Maintenance Due Date Last Done Comments [...] Documents on File Type Date Recorded Patient Ventilator Specialist Expl anation Power of Sketch Liner 03/20/2024 signed on 02/02/2022 * Full Code [...] Advance Directives occurred with: Patient Care Teams Hair Dryer Relationship Specialty Start Date End Date Khoa Hui MD [address] [place] [address] PCP - General Family Medicine 05/19/14 documented as of this encounter
[2024-05-03] MEDS ORDERED: ALBUTEROL 0.083% NEBU SOLN 3 ML VIAL INH PRN (13:12)
[2024-05-03] MEDS ORDERED: NITROGLYCERIN SL 0.4 MG/TAB TAB SL PRN (13:12)
[2024-05-03] MEDS ORDERED: POLYETHYLENE (MIRALAX) 17 GM PACK PO PRN (13:12)
[2024-05-03] MEDS ORDERED: ONDANSETRON INJ 2 MG/ML 2 ML VIAL IV PRN (13:12)
[2024-05-03] MEDS: SPIRONOLACTONE 25 MG TAB PO ONE (13:13)
[2024-05-03] MEDS: ISOSORBIDE MONO EXTENDED REL 30 MG TABCR PO ONE (13:13)
[2024-05-03] MEDS: SOTALOL HCL 80 MG TAB PO ONE (13:13)
[2024-05-03] MEDS: DOXYCYCLINE HYCLATE 100 MG in DEXTROSE 5% MINI-B 100 ML IV SCH (13:14)
[2024-05-03] MEDS: FUROSEMIDE 40 MG/4 ML VIAL IV ONE (13:45)
[2024-05-03] MEDS: guaiFENesin 600 MG TABCR PO SCH (14:19)
[2024-05-03] MEDS: ALBUT/IPRATROP 3MG/0.5MG NEB 3 ML VIAL NEB SCH (15:22)
[2024-05-03] MEDS: WARFARIN SOD 2.5 MG TAB PO SCH (15:53)
[2024-05-03] MEDS ORDERED: IPRATROPIUM BROMIDE NEB SOLN 0.02% 0.5MG/2.5ML VIAL NEB PRN (16:48)
[2024-05-03] MEDS ORDERED: CARBOHYDRATES FOR HYPOGLYCEMIA PO PRN (16:50)
[2024-05-03] MEDS ORDERED: GLUCAGON FOR INJ 1 MG VIAL SQ PRN (16:50)
[2024-05-03] MEDS ORDERED: DEXTROSE 50% 50 ML SYRINGE IV PRN (16:50)
[2024-05-03] MEDS ORDERED: GLUCOSE 40% GEL 15 GM TUBE PO PRN (16:50)
[2024-05-03] MEDS ORDERED: GLUCOSE 10 TAB/TUBE PO PRN (16:50)
[2024-05-03] MEDS: INSULIN ASPART PER UNIT CHARGE SC SCH (17:56)
[2024-05-03] MEDS: SODIUM CHLOR 7% 4 ML NEB NEB SCH (19:48)
[2024-05-03] MEDS: SOTALOL HCL 80 MG TAB PO SCH (20:38)
[2024-05-03] MEDS ORDERED: NON-FORMULARY MEDICATION (Budesonide-Glycopyr-Formoterol [Breztri Aerosphere] 160-9-4.8 mc INH SCH (21:00)
[2024-05-03] MEDS: guaiFENesin SUGAR FREE 200 MG/10 ML UDC PO SCH (22:19)
[2024-05-04] MEDS: UMECLIDINIUM/VILANTEROL 62.5/25MCG 7 PUFFS/INHALER INH SCH (03:16)
[2024-05-04] MEDS: FLUTICASONE FUROATE 200MCG 14 PUFFS/INHALER INH SCH (03:16)
[2024-05-04] MEDS: ALBUTEROL HFA 8 GM INHALER INH PRN (03:26)
[2024-05-04 04:46] LABS: Base Excess VBG 16.3 mEq/L; HCO3 VBG 46 mmol/L; Oxygen Saturation VBG < 60.0 %; PCO2 VBG 79 mmHg (38-50); PO2 VBG 27 mmHg; pH VBG 7.37 (7.36-7.41)
[2024-05-04 04:53] LABS: Hematocrit (blood only) 35.8 % (37.0-47.0); Hemoglobin 11.2 g/dl (12.0-16.0); Mean Corpuscular Hemoglobin 30.1 pg (25.0-34.0); Mean Corpuscular Hgb Conc 31.3 g/dL (32.0-36.0); Mean Corpuscular Volume 96.2 fL (80.0-100.0); Mean Platelet Volume 11.7 fL (9.4-12.4); Platelet Count 165 K/uL (130-400); RDW Coefficient of Variation 12.6 % (11.5-14.5); RDW Standard Deviation 44.7 fL (36.4-46.3); Red Blood Count 3.72 M/uL (4.20-5.40); White Blood Count 10.67 K/ul (4.8-10.8)
[2024-05-04 05:15] LABS: INR 2.3 (0.9-1.1)
[2024-05-04 05:26] LABS: BUN Creatinine Ratio 28.4 (10-20); Calcium 8.9 mg/dl (8.6-10.3); Potassium 4.3 mmol/L (3.5-5.1)
[2024-05-04 07:11] LABS: Estimated Average Glucose 128 mg/dl; Hemoglobin A1C 6.1 % (4.5-5.6)
--- NOTE | 2024-05-04 07:48 | Electrocardiogram Report ---
Test Reason : Blood Pressure : */* mmHG Vent. Rate : 59 BPM Atrial Rate : 59 BPM P-R Int : 144 ms QRS Dur : 92 ms QT Int : 436 ms P-R-T Axes : 97 83 74 degrees QTcB Int : 431 ms Poor data quality, interpretation may be adversely affected Sinus bradycardia Incomplete right bundle branch block Nonspecific ST abnormality Abnormal ECG When compared with ECG of 01-Mar-2024 19:28, No significant change was found Confirmed by Roberto Jackson ([id number]) on 05/04/2024 7:48:22 AM Referred By: REFERRED SELF Confirmed By: Roberto Jackson
[2024-05-04] MEDS: ASPIRIN 81 MG ECTAB PO SCH (08:23)
[2024-05-04] MEDS: ISOSORBIDE MONO EXTENDED REL 30 MG TABCR PO SCH (08:23)
[2024-05-04] MEDS: FUROSEMIDE 40 MG TAB PO SCH (08:23)
[2024-05-04] MEDS: predniSONE 20 MG TAB PO SCH (08:23)
[2024-05-04] MEDS: SPIRONOLACTONE 25 MG TAB PO SCH (08:23)
--- NOTE | 2024-05-04 12:34 | Hospitalist Progress Note ---
Date of Service May 04, 2024 Assessment & Plan (1) Acute exacerbation of chronic obstructive pulmonary disease (COPD): (2) Hematoma of left lower extremity: (3) Pulmonary hypertension: (4) Left upper lobe pulmonary nodule: (5) Anticoagulated on Coumadin: (6) Prediabetes: (7) Hyperlipidemia: (8) CAD (coronary artery disease), [place] coronary artery: (9) Hypertension: (10) Chronic diastolic (congestive) heart failure: Plan Patient is an 79 yr female with PMH of COPD with chronic hypoxic respiratory failure on 4 L nasal cannula O2 at baseline, known lung nodule, dyslipidemia, prediabetes, paroxysmal atrial fibrillation on Coumadin, chronic diastolic heart failure, pulmonary hypertension, CAD (s/p AME to RCA), tobacco use and other medical problems listed below who presents to the ED with progressive shortness of breath x few weeks and was found to have a COPD exacerbation. Acute on chronic hypoxic respiratory failure Acute COPD exacerbation Chronic oxygen dependency--on 4 L at baseline --CXR: No acute cardiopulmonary findings. 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 Emphysema. -- COVID, influenza, RSV screen negative --Normal procalcitonin --Continue nebs, IV Solu-Medrol, doxycycline --Titrate oxygen to keep oxygen saturations 88 to 92% -- Will consider pulmonology evaluation if no improvement -- Continue home inhalers -- Aggressive pulmonary hygiene with flutter, Mucinex, hypertonic saline nebs Chronic diastolic heart failure Pulmonary HTN Chronic lower extremity edema Continue home diuretics, isosorbide Monitor volume status Left lung nodule ? Malignancy H/O Tobacco use - 64 pack year history Per Dr. Clarke's pulm note from Feb 2024, enlarging Left upper lobe nodule 1.8 X 2.3 cm, SUV 5.6 on PET scan 01/22/2024 Remonstrated on CXR as above Patient aware, does not want tissue diagnostic work up, or oncology evaluation/Rx including chemo or Radiation therapy regarding SUSHIL nodule Follow-up as outpatient Paroxysmal A Fib Continue sotalol INR therapeutic Continue Coumadin LLE hematoma Noted on previous admission Following with [facility] wound care, wound vac in place Coumadin resumed last month Wound care nurse consulted CAD Continue aspirin, Imdur patient discontinued statin in Feb 2024 per PCP note Prediabetes HbA1c 6.1 DVT Px: Coumadin Code status: DNR/DNI Admission and Anticipated Discharge Date Admission Date: May 03, 2024 Subjective Patient is seen and examined at bedside Dyspnea slightly better when compared to yesterday States having cough associated with wheezing Denies any chest pain, nausea, vomiting, abdominal pain No other complaints Saturating well on supplemental oxygen Review of Systems Review of Systems: All systems reviewed & are unremarkable except as noted in Subjective Physical Exam Physical Exam: Physical Exam: Vitals signs as noted above General Appearance: Thin, frail, chronic ill appearing, mild distress Head: normocephalic, Atraumatic Eyes: normal inspection, EOMI Neck: supple, Trachea midline Respiratory/Chest: Decreased breath sounds, B/L wheezing, No accessory muscle use Cardiovascular: S1, S2, No murmur Abdomen/GI:Soft, Non tender, Bowel sounds present Extremities/Musculoskeletal:normal inspection, + B/L LE edema, + left leg wound Neurologic/Psych:AAOX3, grossly no focal neurological deficits Skin: normal color, warm Results & Data Results & Data Vital Signs (Past 12 Hours) Vital Signs Temp Pulse Pulse Resp BP Pulse Ox O2 Del Method 05/04/24 08:20 Nasal Cannula 05/04/24 08:00 36.4 C L 58 L 20 145/75 H 100 Nasal Cannula 05/04/24 08:00 57 L 05/04/24 07:34 80 19 100 Nasal Cannula 05/04/24 03:30 36.5 C 70 18 133/88 92 Nasal Cannula 05/04/24 03:30 63 17 94 Nasal Cannula 05/04/24 03:00 61 05/04/24 03:00 Nasal Cannula O2 Flow Rate 05/04/24 08:20 4 05/04/24 08:00 4 05/04/24 08:00 05/04/24 07:34 4 05/04/24 03:30 3 05/04/24 03:30 4 05/04/24 03:00 05/04/24 03:00 4 Laboratory Results Short CBC 05/04/24 Range/Units 04:32 WBC 10.67 (4.8-10.8) K/ul Hgb 11.2 L (12.0-16.0) g/dl Hct 35.8 L (37.0-47.0) % Plt Count 165 (130-400) K/uL BMP 05/04/24 04:32 Sodium 137 Potassium 4.3 Chloride 94 L Carbon Dioxide 42 H* BUN 23 Creatinine 0.81 Glucose 150 H Calcium 8.9 (2) Hematoma of left lower extremity Encounter type: subsequent encounter Qualified Code(s): S80.12XD - Contusion of left lower leg, subsequent encounter (8) CAD (coronary artery disease), [place] coronary artery Associated angina: with unstable angina [place] vs. transplanted heart: [place] heart Qualified Code(s): I25.110 - Atherosclerotic heart disease of [place] coronary artery with unstable angina pectoris
[2024-05-04] MEDS ORDERED: methylPREDNISolone 125 MG/2 ML VIAL IV SCH (13:00)
[2024-05-04] MEDS: methylPREDNISolone 40 MG in SYRINGE 0 ML IV SCH (14:21)
[2024-05-04] MEDS: LEVALBUTEROL HCL 0.63 MG/3 ML NEB NEB SCH ×2 (14:40→15:34)
[2024-05-04] MEDS: IPRATROPIUM BROMIDE NEB SOLN 0.02% 0.5MG/2.5ML VIAL NEB SCH (15:34)
[2024-05-04] MEDS ORDERED: IPRATROPIUM BROMIDE NEB SOLN 0.02% 0.5MG/2.5ML VIAL NEB PRN (16:06)
[2024-05-04] MEDS ORDERED: LEVALBUTEROL HCL 0.63 MG/3 ML NEB NEB PRN (16:06)
--- NOTE | 2024-05-04 16:07 | Communication Note ---
Date of Service: May 04, 2024 Informed by staff that patient has been refusing Nebs. Will change nebs as needed
[2024-05-04] MEDS: WARFARIN SOD 1.25 MG TAB PO SCH (17:16)
[2024-05-04] MEDS: guaiFENesin 600 MG TABCR PO SCH (20:23)
[2024-05-04] MEDS: DOXYCYCLINE HYCLATE 100 MG CAP PO SCH (20:23)
--- NOTE | 2024-05-04 21:45 | Communication Note ---
Date of Service: May 04, 2024 Patient refusing p.o. meds as per RN. Sick of taking pills Change oral doxycycline to IV Change Mucinex tablets to Robitussin syrup
[2024-05-04] MEDS: DOXYCYCLINE HYCLATE 100 MG in DEXTROSE 5% MINI-B 100 ML IV SCH (22:13)
[2024-05-04] MEDS: guaiFENesin SUGAR FREE 200 MG/10 ML UDC PO SCH (22:13)
[2024-05-05 04:44] LABS: Hematocrit (blood only) 33.5 % (37.0-47.0); Hemoglobin 10.8 g/dl (12.0-16.0); Mean Corpuscular Hemoglobin 30.3 pg (25.0-34.0); Mean Corpuscular Hgb Conc 32.2 g/dL (32.0-36.0); Mean Corpuscular Volume 94.1 fL (80.0-100.0); Mean Platelet Volume 12.1 fL (9.4-12.4); Platelet Count 170 K/uL (130-400); RDW Coefficient of Variation 12.7 % (11.5-14.5); RDW Standard Deviation 43.9 fL (36.4-46.3); Red Blood Count 3.56 M/uL (4.20-5.40); White Blood Count 12.06 K/ul (4.8-10.8)
[2024-05-05 05:04] LABS: Anion Gap 4 (3-11); Calcium 8.6 mg/dl (8.6-10.3); Carbon Dioxide 37 mmol/L (21-32); Chloride 95 mmol/L (98-107); Sodium 136 mmol/L (136-145)
[2024-05-05 05:10] LABS: BUN Creatinine Ratio 41.9 (10-20); Blood Urea Nitrogen 31 mg/dl (6-23); Creatinine Clr Calc Pharmacy 55.8 ml/min; Glucose 161 mg/dl (70-99(Fasting))
[2024-05-05 06:47] LABS: INR 2.1 (0.9-1.1); Prothrombin Time 21.8 Seconds (9.0-12.0)
[2024-05-05] MEDS: FLUTICASONE FUROATE 200MCG 14 PUFFS/INHALER INH SCH (08:46)
--- NOTE | 2024-05-05 14:03 | Hospitalist Progress Note ---
Date of Service May 05, 2024 Assessment & Plan (1) Acute exacerbation of chronic obstructive pulmonary disease (COPD): (2) Hematoma of left lower extremity: (3) Pulmonary hypertension: (4) Left upper lobe pulmonary nodule: (5) Anticoagulated on Coumadin: (6) Prediabetes: (7) Hyperlipidemia: (8) CAD (coronary artery disease), [place] coronary artery: (9) Hypertension: (10) Chronic diastolic (congestive) heart failure: Plan Patient is an 79 yr female with PMH of COPD with chronic hypoxic respiratory failure on 4 L nasal cannula O2 at baseline, known lung nodule, dyslipidemia, prediabetes, paroxysmal atrial fibrillation on Coumadin, chronic diastolic heart failure, pulmonary hypertension, CAD (s/p AME to RCA), tobacco use and other medical problems listed below who presents to the ED with progressive shortness of breath x few weeks and was found to have a COPD exacerbation. Acute on chronic hypoxic respiratory failure Acute COPD exacerbation Chronic oxygen dependency--on 4 L at baseline --CXR: No acute cardiopulmonary findings. 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 Emphysema. -- COVID, influenza, RSV screen negative --Normal procalcitonin --Continue nebs, IV Solu-Medrol, doxycycline --Titrate oxygen to keep oxygen saturations 88 to 92% -- Will consider pulmonology evaluation if no improvement -- Continue home inhalers -- Aggressive pulmonary hygiene with flutter, Mucinex, hypertonic saline nebs -- Has been refusing nebs --Will decrease IV Solu-Medrol 40 mg to twice a day -- Titrate oxygen Leukocytosis due to steroids Chronic diastolic heart failure Pulmonary HTN Chronic lower extremity edema Continue home diuretics, isosorbide Monitor volume status Left lung nodule ? Malignancy H/O Tobacco use - 64 pack year history [address] Clarke's pulm note from Feb 2024, enlarging Left upper lobe nodule 1.8 X 2.3 cm, SUV 5.6 on PET scan 01/22/2024 Remonstrated on CXR as above Patient aware, does not want tissue diagnostic work up, or oncology evaluation/Rx including chemo or Radiation therapy regarding SUSHIL nodule Follow-up as outpatient Paroxysmal A Fib Continue sotalol INR therapeutic Continue Coumadin INR 2.1 today LLE hematoma Noted on previous admission Following with [facility] wound care, wound vac in place Coumadin resumed last month Wound care nurse consulted CAD Continue aspirin, Imdur patient discontinued statin in Feb 2024 per PCP note Prediabetes HbA1c 6.1 DVT Px: Coumadin Code status: DNR/DNI Admission and Anticipated Discharge Date Admission Date: May 03, 2024 Subjective Patient is seen and examined at bedside States feeling very tired today No significant wheezes on exam Continues to refuse nebs, PT Less cough today Denies any chest pain, nausea, vomiting, abdominal pain Saturating well on supplemental oxygen Review of Systems Review of Systems: All systems reviewed & are unremarkable except as noted in Subjective Physical Exam Physical Exam: Physical Exam: Vitals signs as noted above General Appearance: Thin, frail, chronic ill appearing, mild distress Head: normocephalic, Atraumatic Eyes: normal inspection, EOMI Neck: supple, Trachea midline Respiratory/Chest: Decreased breath sounds, clear to auscultation, No accessory muscle use Cardiovascular: S1, S2, No murmur Abdomen/GI:Soft, Non tender, Bowel sounds present Extremities/Musculoskeletal:normal inspection, + B/L LE edema, + left leg wound Neurologic/Psych:AAOX3, grossly no focal neurological deficits Skin: normal color, warm Results & Data Results & Data Vital Signs (Past 12 Hours) Vital Signs Temp Pulse Pulse Resp BP BP Pulse Ox 05/05/24 11:30 36.3 C L 55 L 20 110/52 L 98 05/05/24 09:00 05/05/24 08:00 60 05/05/24 07:39 36.6 C 59 L 20 127/65 99 05/05/24 04:10 36.4 C L 58 L 18 112/67 97 05/05/24 02:02 60 05/05/24 02:02 O2 Del Method O2 Flow Rate 05/05/24 11:30 Nasal Cannula 4 05/05/24 09:00 Nasal Cannula 4 05/05/24 08:00 05/05/24 07:39 Nasal Cannula 4 05/05/24 04:10 Nasal Cannula 3 05/05/24 02:02 05/05/24 02:02 Nasal Cannula 4 Laboratory Results Short CBC 05/05/24 Range/Units 04:29 WBC 12.06 H (4.8-10.8) K/ul Hgb 10.8 L (12.0-16.0) g/dl Hct 33.5 L (37.0-47.0) % Plt Count 170 (130-400) K/uL BMP 05/05/24 05/05/24 04:29 05:48 Sodium 136 Potassium TNP 4.3 Chloride 95 L Carbon Dioxide 37 H BUN 31 H Creatinine 0.74 Glucose 161 H Calcium 8.6 (2) Hematoma of left lower extremity Encounter type: subsequent encounter Qualified Code(s): S80.12XD - Contusion of left lower leg, subsequent encounter (8) CAD (coronary artery disease), [place] coronary artery [place] vs. transplanted heart: [place] heart Associated angina: with unstable angina Qualified Code(s): I25.110 - Atherosclerotic heart disease of [place] coronary artery with unstable angina pectoris
[2024-05-05] MEDS: ACETAMINOPHEN 325 MG TAB PO PRN (21:29)
[2024-05-05] MEDS: methylPREDNISolone 40 MG in SYRINGE 0 ML IV SCH (21:29)
[2024-05-05] MEDS ORDERED: SODIUM CHLOR 7% 4 ML NEB NEB PRN (22:08)
[2024-05-06 05:09] LABS: Hematocrit (blood only) 35.3 % (37.0-47.0); Hemoglobin 11.3 g/dl (12.0-16.0); Mean Corpuscular Hemoglobin 30.5 pg (25.0-34.0); Mean Corpuscular Volume 95.1 fL (80.0-100.0); Mean Platelet Volume 11.7 fL (9.4-12.4); Platelet Count 196 K/uL (130-400); RDW Coefficient of Variation 12.8 % (11.5-14.5); RDW Standard Deviation 44.8 fL (36.4-46.3); Red Blood Count 3.71 M/uL (4.20-5.40); White Blood Count 11.74 K/ul (4.8-10.8)
[2024-05-06 05:26] LABS: BUN Creatinine Ratio 47.8 (10-20); Calcium 8.8 mg/dl (8.6-10.3); Creatinine Clr Calc Pharmacy 45.9 ml/min; Potassium 4.2 mmol/L (3.5-5.1)
[2024-05-06 05:39] LABS: INR 2.4 (0.9-1.1); Prothrombin Time 24.2 Seconds (9.0-12.0)
--- NOTE | 2024-05-06 13:26 | Palliative Care Consultation ---
Date of Consultation May 06, 2024 Assessment & Plan (1) Dyspnea and respiratory abnormalities: Progressive COPD and pulmonary hypertension. Patient does not believe her COPD is smoking-related. She believes that it is a combination of genetics (lung disease from her father, who is also an active smoker) and perhaps other exposures through life. She does not feel that smoking causes lung disease. She feels that that is an excuse providers use to blame patients for their medical situation. We had a long discussion about the nature of COPD, its progression, the fact that it is not reversible or curable, and the complication of pulmonary hypertension as a long-term outcome of prolonged lung failure. We discussed the nature of pulmonary hypertension and the symptoms she can experience such as increased fluid retention, decreased strength, increasing dyspnea, increasing weakness and fatigue, and further complications with fluid volume overload. We discussed the option of managing dyspnea from a comfort driven perspective with a focus on quality of life by using low-dose morphine liquid and/or Ativan to help with her mood and anxiety. She admits to falling into a cycle of dyspnea then panic then dyspnea that worsens. She is however refusing any effort and offer of symptom management me dication and feels that it is her time to and she just wants to "return home so I can just in my sleep, I do not need anyone and I do not like anyone in my home. I am very private person and I refused to let people into my home. My home is for me only." She currently has a visiting nurse who comes Wednesdays and Fridays to assist with her wound care and has a good rapport with this [facility]. She feels that is the only person she is willing to allow in her house. She keeps a regular Monday appointment with wound care clinic and feels that that has been a reasonable way to manage her issues up until now. She notes that her inhalers are no longer helping. Nebulizers are more hit or miss. She also notes that she did not like the facemask version of the nebulizer because it added to her anxiety and dyspnea which began to get cyclical and worsen. We discussed the options of using medications to help relieve the breathlessness and the anxiety such as low-dose liquid morphine, Ativan for anxiety or even perhaps daily Celexa. She continues to insist that she has not been given all the medicines that may be could help her at this point. I offered and she and her daughter excepted a formal pulmonary medicine consult while she is in the hospital. She notes that her outside hospital pulmonary provider left the organization and that she has not had a chance to really establish a therapeutic rapport with the new provider. She is interested in seeing what additional testing she may need to complete to be evaluated for potential portable oxygen concentrator and asks if this is something that might be able to get done while she is in the hospital. Given her declining performance status combined with her worsening mobility due to the wound and generalized weakness, she may be a candidate for portable oxygen concentrator from a [id number] perspective because she is not able to tolerate pulsed delivery and continues to have worsening dyspnea. She also makes note of a recent finding of "a spot on her lung, which PET/CT suggested may potentially be malignant but has overall been slow-growing. She has declined any further intervention or evaluation for this and does not want any other workup, noting that even if it was cancer, she is "too far gone for anything to be done about that now. I just want to go and in peace, and my own house!" (2) Weakness generalized: (3) Advanced care planning/counseling discussion: A 45-minute [id number] advance care planning discussion was held at the bedside with patient and her daughter. We discussed the progression of COPD, the implications and clinical prognosis, as well as the implications and clinical prognosis of pulmonary hypertension, vascular disease, wound, complications, and overall declining performance status. Describe the potential resources that she has available for improving support and resources in the home setting including the [facility] at home program, the [facility] palliative and home program versus hospice. She declined all offers despite extensive discussion the daughter was interested in the programs and asked salient questions. She also inquired about getting her mom a portable oxygen concentrator noting that the patient has not been able to get out of her home to do some of the things she enjoyed doing for self i.e. a salon appointment for her hair and nails as an example, and that with a portable concentrator her quality of life would improve. They were advised patient would need to have some testing done before this could be considered for approval however patient has refused to have that testing done. Advised that I will ask for a formal pulmonary medicine consult while she was in-house to see if there are other medications to consider. Patient states that she generally feels better when she is on prednisone at the higher doses and wants to know if there could be a role for that at this point especially since her MDIs and her nebulizers are really no longer providing significant relief. She has a very strong opinion that her lung disease is not smoking-related and this is just the medical [facility] way of trying to place blame on a patient. 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 However we discussed that the area of clubbing is well below the area of the acrylic outgrowth and the discoloration in the nailbeds is consistent with long-term lung disease. Patient was at times very hostile and defensive. She often interjected and cut me off while speaking and repeatedly accused "the healthcare system" of lying to her and misleading her. She reiterates that she is an extremely honest person and expects everyone in her life to be the same. She is also extremely private and likes the privacy of her own home. She knows that she may need help but refuses to accept it. She feels her daughter, who lives just a few minutes away, can provide whatever support she may need when needed. She also states that it is her hope she will soon because she has no more quality of life that she dies in her sleep peacefully. We discussed the potential symptoms and distress patients may experience with end-stage or terminal lung failure as well as the options that are available from a resource perspective to ameliorate that suffering and to provide patients with more comfort and the ability to remain in their home. Specifically we had a long discussion about hospice as a supportive care program however she continues to insist that that is not appropriate for her. Daughter tried to interject noting the patient did call for an ambulance because her symptoms were becoming more intense and that perhaps having somebody who would come to the house when her symptoms became worse and on-call manner would be more supportive for her and keep her where she wants to be. Patient however continued to refuse this and finally shouted, "I am a private person and I want to be private, stop asking me." I encourage patient and her daughter to continue discussing all of the options we presented today. Advised that I will follow-up with her in a few days to see if she has additional questions or concerns. I offered her ongoing outpatient palliative medicine follow-up should she desire it and she excepted my contact information but stated that she was unsure about making any commitment to a clinic appointment at this time. (4) Palliative care by specialist: Introduced Palliative Medicine and explained our role in patient's care. Patient and/or family were receptive to palliative services for goals of care di scussions. Reviewed we are different from hospice, a home health nurse visiting service. (5) Pulmonary hypertension: Plan As above Primary team and nursing updated Thank you for allowing us to participate in the ongoing care of this patient. Please page with any additional concerns. Connor Walker DNP Director, Palliative Medicine History of Present Illness Reason for Consultation: "Goals fo care" Attending Physician: Caesar Meng MD History of Present Illness Patient is an 79 yr female with PMH of COPD with chronic hypoxic respiratory failure on 4 L nasal cannula O2 at baseline, known lung nodule, dyslipidemia, prediabetes, paroxysmal atrial fibrillation on Coumadin, chronic diastolic heart failure, pulmonary hypertension, CAD (s/p AME to RCA), tobacco use and other medical problems listed below who presents to the ED with progressive shortness of breath x few weeks and was found to have a COPD exacerbation. Mrs. Rolle is seen at the bedside together with her daughter. She is agitated and quite distressed by perceived grievances through this admission. She is frustrated that she was told she will not be double charged for her wound VAC device because she has been admitted. She also states that she does not like people in her home and is agitated by the discussions that people have had with recommending more help at home for her. She states that she knows she has COPD and not a lot of time left. She also states that she is ready to but she does not want any medication or assistance at home. Her daughter states that patient has become very close steroids since her COPD worsened and her oxygen needs have risen. She is currently on 4 L flow [id number] and cannot tolerate pulsed delivery and requires continuous flow. Daughter tried to obtain a portable oxygen concentrator for her but was declined by the [employer] [facility] [employer]. They also advised her that she would need to have some special testing done before the device could be considered however patient has been refusing to get any official testing done. Patient also states nebulizers are not particularly helpful anymore, MDIs are difficult to use and do not seem to have any significant effect and when they tried a mask based nebulized dose in the emergency department she became very claustrophobic and it in turn worsened her dyspnea and anxiety. She refuses to consider medication such as morphine liquid at low doses or Ativan to address any of her symptoms and remains very fixated on her father was given morphine at the end of life and that is how he . Allergies Allergy/AdvReac Type Severity Reaction Status Date / Time dog dander Allergy Severe congestion, Verified 04/22/24 07:46 SOB valsartan Allergy Severe Edema Verified 04/22/24 07:46 face/lips/tongue. levofloxacin [From Levaquin] Allergy Intermediate ITCHY Verified 04/22/24 07:46 HIVES ON TRUNK AND LEGS nickel Allergy Mild Rash. Verified 04/22/24 07:46 NAI Inhibitors AdvReac Intermediate Cough. Verified 04/22/24 07:46 influenza virus vaccine ts AdvReac Intermediate SINUS Verified 04/22/24 07:46 [id number] (36 mos,up) PRESSURE/DRAINAGE [From Fluarix] Home Medications Medication Instructions Recorded Confirmed Type nitroglycerin 0.4 mg sublingual 0.4 mg sublingual DIRECTED PRN 04/19/19 05/03/24 History tablet Chest Pain sotalol 80 mg tablet 80 mg PO BID 04/19/19 05/03/24 History aspirin 81 mg tablet,delayed 81 mg PO QAM 01/17/23 05/03/24 History release azelastine 137 mcg (0.1 %) nasal 1 spray intranasal AMHS 01/17/23 05/03/24 History spray spironolactone 25 mg tablet 25 mg PO QAM 01/17/23 05/03/24 History albuterol sulfate 2.5 mg/3 mL 2.5 mg inhalation DIRECTED PRN 06/26/23 05/03/24 History (0.083 %) solution for nebulization Shortness Of Breath Or Wheezing isosorbide mononitrate 30 mg 30 mg PO QAM #30 tabs 06/27/23 05/03/24 Rx tablet,extended release 24 hr albuterol sulfate 90 mcg/actuation 2 inh inhalation Q4H PRN Shortness 01/02/24 05/03/24 History aerosol inhaler Of Breath Or Wheezing budesonide 160 mcg-glycopyr 9 2 inh inhalation AMHS #1 inhaler 02/09/24 05/03/24 Rx mcg-formot 4.8 mcg/actuation HFA inhaler (Breztri Aerosphere) furosemide 20 mg tablet 40 mg (2 x 20 mg) PO QAM #60 tabs 02/09/24 05/03/24 Rx prednisone 10 mg tablet 10 mg PO DIRECTED 04/10/24 05/03/24 History warfarin 2.5 mg tablet 2.5 mg PO SUMOWEFR@1600 04/10/24 05/03/24 History warfarin 2.5 mg tablet 1.25 mg PO TUTHSA@1600 05/03/24 05/03/24 History Patient History Medical History (Updated 05/06/24 @ 13:26 by Yaa Walker, SHERRY) Chronic diastolic (congestive) heart failure Tobacco abuse CAD (coronary artery disease), [place] coronary artery Hypertension Emphysema of lung Surgical History S/P right coronary artery (RCA) stent placement H/O: hysterectomy S/P appendectomy Family History Other Colon cancer Social History Smoking Status: Former smoker Tobacco Type: Cigarettes Cigarettes Per Day: smokes occasionally, some days doesn't smoke, other days smokes 3-5 cigs; Second Hand Exposure: No; Do You Dip or Chew Tobacco: No; Hx Alcohol Use: Yes Alcohol type: wine Alcohol Intake Frequency Comment: 1 glass of wine 3-5 days per week Hx Substance Use: No Preferred Language: Maori Communication Ability: Effective Visual Impairment: Limited Hearing Ability: Normal 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 Mood is irritable at times hostile. Very dyspneic with conversation. Accessory muscle use noted. Sentences are limited to 2-3 words at a time. Abdominal breathing is noted. Breath sounds overall diminished. Slightly tachycardic with exertion and prolonged conversation. Neck is supple and there is no stridor. Abdomen is scaphoid. Lower extremities with wrinkled skin, significantly dry, wound dressing on left lower extremity intact with wound VAC connected. Generalized weakness throughout. She is awake alert and oriented x 3. Skin is pale. There is clubbing of bilateral upper extremities. There is also some whitish discoloration of the nail base. Results & Data Vital Signs (Past 12 Hours) Vital Signs Temp Pulse Resp BP BP Pulse Ox O2 Del Method 05/06/24 11:05 36.5 C 55 L 20 105/55 L 97 Nasal Cannula 05/06/24 09:17 Nasal Cannula 05/06/24 08:18 36.7 C 56 L 19 113/60 98 Nasal Cannula 05/06/24 03:49 36.4 C L 59 L 16 133/65 96 Nasal Cannula O2 Flow Rate 05/06/24 11:05 4 05/06/24 09:17 4 05/06/24 08:18 4 05/06/24 03:49 4 Laboratory Results 05/06/24 05/06/24 05/05/24 Range/Units 08:11 04:24 20:41 WBC 11.74 H (4.8-10.8) K/ul RBC 3.71 L (4.20-5.40) M/uL Hgb 11.3 L (12.0-16.0) g/dl POC Hgb (12.0-16.0) g/dl Hct 35.3 L (37.0-47.0) % POC Hct (37-47) % MCV 95.1 (80.0-100.0) fL MCH 30.5 (25.0-34.0) pg MCHC 32.0 (32.0-36.0) g/dL RDW Std Deviation 44.8 (36.4-46.3) fL RDW Coeff of Anais 12.8 (11.5-14.5) % Plt Count 196 (130-400) K/uL MPV 11.7 (9.4-12.4) fL Immature Gran % (Auto) % Neut % (Auto) % Lymph % (Auto) % Kern % (Auto) % Eos % (Auto) % Baso % (Auto) % Neut # (Auto) (1.40-6.50) K/uL Lymph # (Auto) (1.20-3.40) K/uL Kern # (Auto) (0.11-0.59) K/uL Eos # (Auto) (0.00-0.50) K/uL Baso # (Auto) (0.00-0.20) K/uL Immature Gran # (Auto) (0.01-0.20) K/uL PT 24.2 H (9.0-12.0) Seconds INR 2.4 H (0.9-1.1) Specimen Type POC pH (7.35-7.45) POC pCO2 (35-46) mmHg POC pO2 (80-95) mmHg POC HCO3 (19-24) petros/L POC Total CO2 (24-31) mmol/L POC Base Excess (-9-1.8) petros/L POC ABG O2 Sat (90-95) % VBG pH (7.36-7.41) VBG pCO2 (38-50) mmHg VBG pO2 mmHg VBG HCO3 mmol/L VBG O2 Saturation % VBG Base Excess mEq/L POC Sodium (135-144) mmol/L Sodium 136 (136-145) mmol/L POC Potassium (3.3-5.0) mmol/L Potassium 4.2 (3.5-5.1) mmol/L Chloride 94 L (98-107) mmol/L Carbon Dioxide 38 H (21-32) mmol/L Anion Gap 4 (3-11) BUN 43 H (6-23) mg/dl Creatinine 0.90 (0.6-1.2) mg/dl Est Cr Clr Drug Dosing 45.9 ml/min eGFR 64.23 BUN/Creatinine Ratio 47.8 H (10-20) Glucose 170 H (70-99(Fasting)) mg/dl POC Glucose 124 H 136 H (70-99) mg/dl Estimat Average Glucose mg/dl Hemoglobin A1c (4.5-5.6) % Calcium 8.8 (8.6-10.3) mg/dl Magnesium (1.7-2.4) mg/dl Total Bilirubin (0.2-1.0) mg/dl Direct Bilirubin (0-0.2) mg/dl AST (13-39) U/L ALT (7-52) U/L Alkaline Phosphatase (34-104) U/L Total Protein (6.0-8.3) gm/dl Albumin (3.4-5.0) gm/dl Procalcitonin (0-0.5) ng/ml SARS-CoV-2 (PCR) (Negative) Influenza Type A (PCR) (Neg) Influenza Type B (PCR) (Neg) RSV (RT-PCR) (Neg) 05/05/24 05/05/24 05/05/24 Range/Units 17:01 11:29 07:41 WBC (4.8-10.8) K/ul RBC (4.20-5.40) M/uL Hgb (12.0-16.0) g/dl POC Hgb (12.0-16.0) g/dl Hct (37.0-47.0) % POC Hct (37-47) % MCV (80.0-100.0) fL MCH (25.0-34.0) pg MCHC (32.0-36.0) g/dL RDW Std Deviation (36.4-46.3) fL RDW Coeff of Anais (11.5-14.5) % Plt Count (130-400) K/uL MPV (9.4-12.4) fL Immature Gran % (Auto) % Neut % (Auto) % Lymph % (Auto) % Kern % (Auto) % Eos % (Auto) % Baso % (Auto) % Neut # (Auto) (1.40-6.50) K/uL Lymph # (Auto) (1.20-3.40) K/uL Kern # (Auto) (0.11-0.59) K/uL Eos # (Auto) (0.00-0.50) K/uL Baso # (Auto) (0.00-0.20) K/uL Immature Gran # (Auto) (0.01-0.20) K/uL PT (9.0-12.0) Seconds INR (0.9-1.1) Specimen Type POC pH (7.35-7.45) POC pCO2 (35-46) mmHg POC pO2 (80-95) mmHg POC HCO3 (19-24) petros/L POC Total CO2 (24-31) mmol/L POC Base Excess (-9-1.8) petros/L POC ABG O2 Sat (90-95) % VBG pH (7.36-7.41) VBG pCO2 (38-50) mmHg VBG pO2 mmHg VBG HCO3 mmol/L VBG O2 Saturation % VBG Base Excess mEq/L POC Sodium (135-144) mmol/L Sodium (136-145) mmol/L POC Potassium (3.3-5.0) mmol/L Potassium (3.5-5.1) mmol/L Chloride (98-107) mmol/L Carbon Dioxide (21-32) mmol/L Anion Gap (3-11) BUN (6-23) mg/dl Creatinine (0.6-1.2) mg/dl Est Cr Clr Drug Dosing ml/min eGFR BUN/Creatinine Ratio (10-20) Glucose (70-99(Fasting)) mg/dl POC Glucose 120 H 165 H 144 H (70-99) mg/dl Estimat Average Glucose mg/dl Hemoglobin A1c (4.5-5.6) % Calcium (8.6-10.3) mg/dl Magnesium (1.7-2.4) mg/dl Total Bilirubin (0.2-1.0) mg/dl Direct Bilirubin (0-0.2) mg/dl AST (13-39) U/L ALT (7-52) U/L Alkaline Phosphatase (34-104) U/L Total Protein (6.0-8.3) gm/dl Albumin (3.4-5.0) gm/dl Procalcitonin (0-0.5) ng/ml SARS-CoV-2 (PCR) (Negative) Influenza Type A (PCR) (Neg) Influenza Type B (PCR) (Neg) RSV (RT-PCR) (Neg) 05/05/24 05/05/24 05/04/24 Range/Units 05:48 04:29 20:56 WBC 12.06 H (4.8-10.8) K/ul RBC 3.56 L (4.20-5.40) M/uL Hgb 10.8 L (12.0-16.0) g/dl POC Hgb (12.0-16.0) g/dl Hct 33.5 L (37.0-47.0) % POC Hct (37-47) % MCV 94.1 (80.0-100.0) fL MCH 30.3 (25.0-34.0) pg MCHC 32.2 (32.0-36.0) g/dL RDW Std Deviation 43.9 (36.4-46.3) fL RDW Coeff of Anais 12.7 (11.5-14.5) % Plt Count 170 (130-400) K/uL MPV 12.1 (9.4-12.4) fL Immature Gran % (Auto) % Neut % (Auto) % Lymph % (Auto) % Kern % (Auto) % Eos % (Auto) % Baso % (Auto) % Neut # (Auto) (1.40-6.50) K/uL Lymph # (Auto) (1.20-3.40) K/uL Kern # (Auto) (0.11-0.59) K/uL Eos # (Auto) (0.00-0.50) K/uL Baso # (Auto) (0.00-0.20) K/uL Immature Gran # (Auto) (0.01-0.20) K/uL PT 21.8 H Cancelled (9.0-12.0) Seconds INR 2.1 H Cancelled (0.9-1.1) Specimen Type POC pH (7.35-7.45) POC pCO2 (35-46) mmHg POC pO2 (80-95) mmHg POC HCO3 (19-24) petros/L POC Total CO2 (24-31) mmol/L POC Base Excess (-9-1.8) petros/L POC ABG O2 Sat (90-95) % VBG pH (7.36-7.41) VBG pCO2 (38-50) mmHg VBG pO2 mmHg VBG HCO3 mmol/L VBG O2 Saturation % VBG Base Excess mEq/L POC Sodium (135-144) mmol/L Sodium 136 (136-145) mmol/L POC Potassium (3.3-5.0) mmol/L Potassium 4.3 TNP (3.5-5.1) mmol/L Chloride 95 L (98-107) mmol/L Carbon Dioxide 37 H (21-32) mmol/L Anion Gap 4 (3-11) BUN 31 H (6-23) mg/dl Creatinine 0.74 (0.6-1.2) mg/dl Est Cr Clr Drug Dosing 55.8 ml/min eGFR 81.23 BUN/Creatinine Ratio 41.9 H (10-20) Glucose 161 H (70-99(Fasting)) mg/dl POC Glucose 162 H (70-99) mg/dl Estimat Average Glucose mg/dl Hemoglobin A1c (4.5-5.6) % Calcium 8.6 (8.6-10.3) mg/dl Magnesium (1.7-2.4) mg/dl Total Bilirubin (0.2-1.0) mg/dl Direct Bilirubin (0-0.2) mg/dl AST (13-39) U/L ALT (7-52) U/L Alkaline Phosphatase (34-104) U/L Total Protein (6.0-8.3) gm/dl Albumin (3.4-5.0) gm/dl Procalcitonin (0-0.5) ng/ml SARS-CoV-2 (PCR) (Negative) Influenza Type A (PCR) (Neg) Influenza Type B (PCR) (Neg) RSV (RT-PCR) (Neg) 05/04/24 05/04/24 05/04/24 Range/Units 17:12 12:04 08:03 WBC (4.8-10.8) K/ul RBC (4.20-5.40) M/uL Hgb (12.0-16.0) g/dl POC Hgb (12.0-16.0) g/dl Hct (37.0-47.0) % POC Hct (37-47) % MCV (80.0-100.0) fL MCH (25.0-34.0) pg MCHC (32.0-36.0) g/dL RDW Std Deviation (36.4-46.3) fL RDW Coeff of Anais (11.5-14.5) % Plt Count (130-400) K/uL MPV (9.4-12.4) fL Immature Gran % (Auto) % Neut % (Auto) % Lymph % (Auto) % Kern % (Auto) % Eos % (Auto) % Baso % (Auto) % Neut # (Auto) (1.40-6.50) K/uL Lymph # (Auto) (1.20-3.40) K/uL Kern # (Auto) (0.11-0.59) K/uL Eos # (Auto) (0.00-0.50) K/uL Baso # (Auto) (0.00-0.20) K/uL Immature Gran # (Auto) (0.01-0.20) K/uL PT (9.0-12.0) Seconds INR (0.9-1.1) Specimen Type POC pH (7.35-7.45) POC pCO2 (35-46) mmHg POC pO2 (80-95) mmHg POC HCO3 (19-24) petros/L POC Total CO2 (24-31) mmol/L POC Base Excess (-9-1.8) petros/L POC ABG O2 Sat (90-95) % VBG pH (7.36-7.41) VBG pCO2 (38-50) mmHg VBG pO2 mmHg VBG HCO3 mmol/L VBG O2 Saturation % VBG Base Excess mEq/L POC Sodium (135-144) mmol/L Sodium (136-145) mmol/L POC Potassium (3.3-5.0) mmol/L Potassium (3.5-5.1) mmol/L Chloride (98-107) mmol/L Carbon Dioxide (21-32) mmol/L Anion Gap (3-11) BUN (6-23) mg/dl Creatinine (0.6-1.2) mg/dl Est Cr Clr Drug Dosing ml/min eGFR BUN/Creatinine Ratio (10-20) Glucose (70-99(Fasting)) mg/dl POC Glucose 100 H 239 H 130 H (70-99) mg/dl Estimat Average Glucose mg/dl Hemoglobin A1c (4.5-5.6) % Calcium (8.6-10.3) mg/dl Magnesium (1.7-2.4) mg/dl Total Bilirubin (0.2-1.0) mg/dl Direct Bilirubin (0-0.2) mg/dl AST (13-39) U/L ALT (7-52) U/L Alkaline Phosphatase (34-104) U/L Total Protein (6.0-8.3) gm/dl Albumin (3.4-5.0) gm/dl Procalcitonin (0-0.5) ng/ml SARS-CoV-2 (PCR) (Negative) Influenza Type A (PCR) (Neg) Influenza Type B (PCR) (Neg) RSV (RT-PCR) (Neg) 05/04/24 05/03/24 05/03/24 Range/Units 04:32 20:15 16:20 WBC 10.67 (4.8-10.8) K/ul RBC 3.72 L (4.20-5.40) M/uL Hgb 11.2 L (12.0-16.0) g/dl POC Hgb (12.0-16.0) g/dl Hct 35.8 L (37.0-47.0) % POC Hct (37-47) % MCV 96.2 (80.0-100.0) fL MCH 30.1 (25.0-34.0) pg MCHC 31.3 L (32.0-36.0) g/dL RDW Std Deviation 44.7 (36.4-46.3) fL RDW Coeff of Anais 12.6 (11.5-14.5) % Plt Count 165 (130-400) K/uL MPV 11.7 (9.4-12.4) fL Immature Gran % (Auto) % Neut % (Auto) % Lymph % (Auto) % Kern % (Auto) % Eos % (Auto) % Baso % (Auto) % Neut # (Auto) (1.40-6.50) K/uL Lymph # (Auto) (1.20-3.40) K/uL Kern # (Auto) (0.11-0.59) K/uL Eos # (Auto) (0.00-0.50) K/uL Baso # (Auto) (0.00-0.20) K/uL Immature Gran # (Auto) (0.01-0.20) K/uL PT 23.0 H (9.0-12.0) Seconds INR 2.3 H (0.9-1.1) Specimen Type POC pH (7.35-7.45) POC pCO2 (35-46) mmHg POC pO2 (80-95) mmHg POC HCO3 (19-24) petros/L POC Total CO2 (24-31) mmol/L POC Base Excess (-9-1.8) petros/L POC ABG O2 Sat (90-95) % VBG pH 7.37 (7.36-7.41) VBG pCO2 79 H (38-50) mmHg VBG pO2 27 mmHg VBG HCO3 46 mmol/L VBG O2 Saturation < 60.0 % VBG Base Excess 16.3 mEq/L POC Sodium (135-144) mmol/L Sodium 137 (136-145) mmol/L POC Potassium (3.3-5.0) mmol/L Potassium 4.3 (3.5-5.1) mmol/L Chloride 94 L (98-107) mmol/L Carbon Dioxide 42 H* (21-32) mmol/L Anion Gap 1 L (3-11) BUN 23 (6-23) mg/dl Creatinine 0.81 (0.6-1.2) mg/dl Est Cr Clr Drug Dosing 51.0 ml/min eGFR 72.88 BUN/Creatinine Ratio 28.4 H (10-20) Glucose 150 H (70-99(Fasting)) mg/dl POC Glucose 155 H 167 H (70-99) mg/dl Estimat Average Glucose 128 mg/dl Hemoglobin A1c 6.1 H (4.5-5.6) % Calcium 8.9 (8.6-10.3) mg/dl Magnesium (1.7-2.4) mg/dl Total Bilirubin (0.2-1.0) mg/dl Direct Bilirubin (0-0.2) mg/dl AST (13-39) U/L ALT (7-52) U/L Alkaline Phosphatase (34-104) U/L Total Protein (6.0-8.3) gm/dl Albumin (3.4-5.0) gm/dl Procalcitonin (0-0.5) ng/ml SARS-CoV-2 (PCR) (Negative) Influenza Type A (PCR) (Neg) Influenza Type B (PCR) (Neg) RSV (RT-PCR) (Neg) 05/03/24 05/03/24 05/03/24 Range/Units 11:30 09:58 09:20 WBC 12.08 H (4.8-10.8) K/ul RBC 4.08 L (4.20-5.40) M/uL Hgb 12.1 (12.0-16.0) g/dl POC Hgb 11.9 L (12.0-16.0) g/dl Hct 39.5 (37.0-47.0) % POC Hct 35 L (37-47) % MCV 96.8 (80.0-100.0) fL MCH 29.7 (25.0-34.0) pg MCHC 30.6 L (32.0-36.0) g/dL RDW Std Deviation 45.8 (36.4-46.3) fL RDW Coeff of Anais 12.8 (11.5-14.5) % Plt Count 188 (130-400) K/uL MPV 11.4 (9.4-12.4) fL Immature Gran % (Auto) 0.2 % Neut % (Auto) 76.9 % Lymph % (Auto) 14.2 % [place] % (Auto) 7.8 % Eos % (Auto) 0.7 % Baso % (Auto) 0.2 % Neut # (Auto) 9.28 H (1.40-6.50) K/uL Lymph # (Auto) 1.72 (1.20-3.40) K/uL [place] # (Auto) 0.94 H (0.11-0.59) K/uL Eos # (Auto) 0.08 (0.00-0.50) K/uL Baso # (Auto) 0.03 (0.00-0.20) K/uL Immature Gran # (Auto) 0.03 (0.01-0.20) K/uL PT 19.4 H (9.0-12.0) Seconds INR 1.9 H (0.9-1.1) Specimen Type Arterial POC pH 7.39 (7.35-7.45) POC pCO2 65 H (35-46) mmHg POC pO2 73 L (80-95) mmHg POC HCO3 39 H (19-24) petros/L POC Total CO2 41 H* (24-31) mmol/L POC Base Excess 14.0 H (-9-1.8) petros/L POC ABG O2 Sat 93.0 (90-95) % VBG pH 7.38 (7.36-7.41) VBG pCO2 77 H (38-50) mmHg VBG pO2 22 mmHg VBG HCO3 46 mmol/L VBG O2 Saturation < 60.0 % VBG Base Excess 16.4 mEq/L POC Sodium 137 (135-144) mmol/L Sodium 141 (136-145) mmol/L POC Potassium 3.5 (3.3-5.0) mmol/L Potassium 3.8 (3.5-5.1) mmol/L Chloride 96 L (98-107) mmol/L Carbon Dioxide 42 H* (21-32) mmol/L Anion Gap 3 (3-11) BUN 16 (6-23) mg/dl Creatinine 0.60 (0.6-1.2) mg/dl Est Cr Clr Drug Dosing 68.8 ml/min eGFR 90.12 BUN/Creatinine Ratio 26.7 H (10-20) Glucose 117 H (70-99(Fasting)) mg/dl POC Glucose (70-99) mg/dl Estimat Average Glucose mg/dl Hemoglobin A1c (4.5-5.6) % Calcium 9.0 (8.6-10.3) mg/dl Magnesium 1.8 (1.7-2.4) mg/dl Total Bilirubin 1.0 (0.2-1.0) mg/dl Direct Bilirubin 0.1 (0-0.2) mg/dl AST 16 (13-39) U/L ALT 19 (7-52) U/L Alkaline Phosphatase 84 (34-104) U/L Total Protein 6.4 (6.0-8.3) gm/dl Albumin 3.4 (3.4-5.0) gm/dl Procalcitonin < 0.02 (0-0.5) ng/ml SARS-CoV-2 (PCR) NEGATIVE (Negative) Influenza Type A (PCR) Negative (Neg) Influenza Type B (PCR) Negative (Neg) RSV (RT-PCR) Negative (Neg) Diagnostic Findings Chest X-Ray 05/03/24 09:28 XR chest 1V portable CLINICAL HISTORY: shortness of breath COMPARISON STUDY: Chest radiograph March 01, 2024. Chest CT March 02, 2024. FINDINGS: There is no pneumothorax or pleural effusion. No consolidation is present and there is no evidence for pulmonary edema. Emphysema and a left upper lobe lesion are better depicted on CT of March 02, 2024. The left upper lobe lesion has mildly increased in size since prior exams. IMPRESSION: 1. No acute cardiopulmonary findings. 2. 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 3. Emphysema. ACT 112: Negative or not required by law. Electronically signed by: Félix Edwards M.D. 05/03/2024 9:53 AM PG Care Time/CCT Total # of Minutes Spent Total Time Spent with Patient: Total time spent is greater than 50% in coordination of care (as documented) at patient's floor/unit and/or counseling patient: I spent 105 minutes overall addressing this case: 15 min in medical data review/discussion with referring provider(s) and/or preparation for the visit 10 min in direct interaction with the patient/exam 45 min in Advance Care Planning/Goals of Care discussions as detailed above in note (must be >16min) 15 min in subsequent review and synthesis of assessment and plan 20 min communicating with other providers regarding the patient's case: Dr Meng Advanced Care Planning [id number] Advanced Care Planning 30 Min 47770 Advanced Care Planning Additional 30 [place] [address] IN/OBS CONSULT LVL 4,60M (25 - SIGNIFICANT, SEPARATELY IDENTIFIABLE ) Patient Type New Medical Decision Making High Complexity Diagnoses Dyspnea and respiratory abnormalities R06.00; R06.89 Weakness generalized R53.1 Advanced care planning/counseling discussion Z71.89 Palliative care by specialist Z51.5 Pulmonary hypertension I27.20 Additional Codes Advanced Care Planning - 77791 Advanced Care Planning 30 Min: 79564 Advanced Care Planning 30 Min ([id number]) Advanced Care Planning - 55020 Advanced Care Planning Additional 30 Min: 38555 Advanced Care Planning Additional 30 Min ([id number])
--- NOTE | 2024-05-06 16:05 | Hospitalist Progress Note ---
Date of Service May 06, 2024 Assessment & Plan (1) Acute exacerbation of chronic obstructive pulmonary disease (COPD): (2) Hematoma of left lower extremity: (3) Pulmonary hypertension: (4) Left upper lobe pulmonary nodule: (5) Anticoagulated on Coumadin: (6) Prediabetes: (7) Hyperlipidemia: (8) CAD (coronary artery disease), [place] coronary artery: (9) Hypertension: (10) Chronic diastolic (congestive) heart failure: Plan Patient is an 79 yr female with PMH of COPD with chronic hypoxic respiratory failure on 4 L nasal cannula O2 at baseline, known lung nodule, dyslipidemia, prediabetes, paroxysmal atrial fibrillation on Coumadin, chronic diastolic heart failure, pulmonary hypertension, CAD (s/p AME to RCA), tobacco use and other medical problems listed below who presents to the ED with progressive shortness of breath x few weeks and was found to have a COPD exacerbation. Acute on chronic hypoxic respiratory failure Acute COPD exacerbation Chronic oxygen dependency--on 4 L at baseline --CXR: No acute cardiopulmonary findings. 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 Emphysema. -- COVID, influenza, RSV screen negative --Normal procalcitonin --Continue nebs, IV Solu-Medrol, doxycycline --Titrate oxygen to keep oxygen saturations 88 to 92% -- Will consider pulmonology evaluation -- Continue home inhalers -- Aggressive pulmonary hygiene with flutter, Mucinex, hypertonic saline nebs -- Has been refusing nebs --Decrease IV Solu-Medrol 40 mg to daily -- Titrate oxygen Appreciate palliative care input Chronic diastolic heart failure Pulmonary HTN Chronic lower extremity edema Continue home diuretics, isosorbide Monitor volume status Left lung nodule ? Malignancy H/O Tobacco use - 64 pack year history Per Dr. Clarke's pulm note from Feb 2024, enlarging Left upper lobe nodule 1.8 X 2.3 cm, SUV 5.6 on PET scan 01/22/2024 Remonstrated on CXR as above Patient aware, does not want tissue diagnostic work up, or oncology evaluation/Rx including chemo or Radiation therapy regarding SUSHIL nodule Follow-up as outpatient Paroxysmal A Fib Continue sotalol INR therapeutic Continue Coumadin INR 2.4 today LLE hematoma Noted on previous admission Following with [facility] wound care, wound vac in place Coumadin resumed last month Appreciate senior treasury analyst help Continue wound VAC CAD Continue aspirin, Imdur patient discontinued statin in Feb 2024 per PCP note Prediabetes HbA1c 6.1 DVT Px: Coumadin Code status: DNR/DNI Admission and Anticipated Discharge Date Admission Date: May 03, 2024 Subjective Patient is seen and examined at bedside Subjectively feels better today No new complaints Saturating well on 4 L supplemental oxygen Denies any significant cough Dyspnea improving Denies any chest pain, nausea, vomiting, abdominal pain Review of Systems Review of Systems: All systems reviewed & are unremarkable except as noted in Subjective Physical Exam Physical Exam: Physical Exam: Vitals signs as noted above General Appearance: Thin, frail, chronic ill appearing, mild distress Head: normocephalic, Atraumatic Eyes: normal inspection, EOMI Neck: supple, Trachea midline Respiratory/Chest: Decreased breath sounds, clear to auscultation, No accessory muscle use Cardiovascular: S1, S2, No murmur Abdomen/GI:Soft, Non tender, Bowel sounds present Extremities/Musculoskeletal:normal inspection, + B/L LE edema, + left leg wound Neurologic/Psych:AAOX3, grossly no focal neurological deficits Skin: normal color, warm Results & Data Results & Data Vital Signs (Past 12 Hours) Vital Signs Temp Pulse Pulse Resp BP BP Pulse Ox 05/06/24 15:02 58 L 05/06/24 11:05 36.5 C 55 L 20 105/55 L 97 05/06/24 09:17 05/06/24 08:18 36.7 C 56 L 19 113/60 98 O2 Del Method O2 Flow Rate 05/06/24 15:02 05/06/24 11:05 Nasal Cannula 4 05/06/24 09:17 Nasal Cannula 4 05/06/24 08:18 Nasal Cannula 4 Laboratory Results Short CBC 05/06/24 Range/Units 04:24 WBC 11.74 H (4.8-10.8) K/ul Hgb 11.3 L (12.0-16.0) g/dl Hct 35.3 L (37.0-47.0) % Plt Count 196 (130-400) K/uL BMP 05/06/24 04:24 Sodium 136 Potassium 4.2 Chloride 94 L Carbon Dioxide 38 H BUN 43 H Creatinine 0.90 Glucose 170 H Calcium 8.8 (2) Hematoma of left lower extremity Encounter type: subsequent encounter Qualified Code(s): S80.12XD - Contusion of left lower leg, subsequent encounter (8) CAD (coronary artery disease), [place] coronary artery [place] vs. transplanted heart: [place] heart Associated angina: with unstable angina Qualified Code(s): I25.110 - Atherosclerotic heart disease of [place] coronary artery with unstable angina pectoris
[2024-05-06 21:57] LABS: Appearance Urine Clear (Clear); Bilirubin Urine Negative (Negative); Blood Urine Negative (Negative); Color Urine Yellow; Glucose Urine UA Negative (Negative); Ketones Urine Trace (Negative); Leukocyte Esterase Urine Negative (Negative); Nitrite Urine Negative (Negative); Protein Urine Negative (Negative); Specific Gravity Urine 1.023 (1.000-1.030); Urobilinogen Urine Negative (Negative)
[2024-05-07 06:18] LABS: Hematocrit (blood only) 37.3 % (37.0-47.0); Hemoglobin 12.1 g/dl (12.0-16.0); Mean Corpuscular Hemoglobin 30.3 pg (25.0-34.0); Mean Corpuscular Hgb Conc 32.4 g/dL (32.0-36.0); Mean Corpuscular Volume 93.3 fL (80.0-100.0); Mean Platelet Volume 11.7 fL (9.4-12.4); Platelet Count 217 K/uL (130-400); RDW Coefficient of Variation 12.7 % (11.5-14.5); RDW Standard Deviation 43.5 fL (36.4-46.3); White Blood Count 10.94 K/ul (4.8-10.8)
[2024-05-07 06:27] LABS: BUN Creatinine Ratio 47.9 (10-20); Calcium 8.7 mg/dl (8.6-10.3); Creatinine Clr Calc Pharmacy 58.2 ml/min; Potassium 4.2 mmol/L (3.5-5.1)
[2024-05-07 06:48] LABS: INR 2.9 (0.9-1.1); Prothrombin Time 28.8 Seconds (9.0-12.0)
[2024-05-07] MEDS: methylPREDNISolone 40 MG in SYRINGE 0 ML IV SCH (09:01)
--- NOTE | 2024-05-07 13:28 | Pulmonary Consultation ---
Date of Consultation May 07, 2024 Assessment & Plan (1) Dyspnea on minimal exertion: (2) COPD (chronic obstructive pulmonary disease): (3) Oxygen dependent: (4) Cor pulmonale: (5) Left upper lobe pulmonary nodule: (6) Declining performance status: Plan I had a lengthy discussion with the patient regarding her goals of care and possible hospice care. She essentially has end-stage COPD with cor pulmonale and is oxygen dependent. She is short of breath with minimal exertion. She also has ambulatory dysfunction and frequent episodes of syncope likely from hypoxemia. I discussed this with the patient's daughter as well. Patient is very reluctant to pursue hospice or additional nursing care at home. She does have nursing care at home twice a week for a wound in her lower extremity. She seems to be in somewhat denial of the severity of her COPD. Patient's daughter is open to the concept of hospice and is going to readdress this with the patient. Patient is also aware that she has a left upper lobe lung nodule that appears to be growing in size and is highly suspicious for malignancy. She is very resistant to the idea about a robotic bronchoscopy and being placed under general anesthesia due to the risks involved. She is also resistant to the idea of surgical approach and I do not think she would tolerate surgery given her poor performance status and severity of her emphysema. She is open to the idea of a CT-guided FNA, but I am concerned that she would have a potentially large pneumothorax related to a CT-guided FNA of the left upper lobe lung nodule. She does have a follow-up scheduled with outpatient pulmonary medicine through [facility] which I encouraged her to keep. I would encourage her to continue using supplemental oxygen to maintain saturations above 89% given her cor pulmonale seen on echo. Continue ICS/LABA/LAMA. Recommend transitioning from IV Solu-Medrol to prednisone for an additional 5 days at 40 mg daily. She does have a wheeze on exam today, but feels that her respiratory symptoms are essentially at baseline. I had a discussion regarding her CODE STATUS. She indicates that she would not want to be indicated but would want chest compressions in the event of a cardiac arrest. I will change her code state to reflect her wishes. I am not sure that additional time in the hospital will alter her overall course. Her overall prognosis quite poor and she has high likelihood of hospital readmission due to COPD exacerbations. History of Present Illness Reason for Consultation: "Advanced COPD" Attending Physician: Caesar Meng MD History of Present Illness 79-year-old female with a history of a growing left upper lobe lung nodule, oxygen dependent COPD, ambulatory dysfunction, hyperlipidemia and presumptive cor pulmonale presenting to the hospital due to increasing shortness of breath and syncope. I had a lengthy discussion with the patient and also with the patient's daughter over the phone. I was also able to review the chart and discussed with the palliative care provider. Patient notes that the reason she came to the hospital was due to syncope and she feels that her shortness of breath is stable. She has chronic severe dyspnea at baseline with even minimal exertion such as walking room to room in her house. She is maintained on 3 to 4 L of supplemental oxygen. She is compliant with her ICS/LABA/LAMA inhaler. She has had frequent readmissions to the hospital due to COPD and falls. She notes that she has had poor follow-up with [facility] pulmonary medicine, but has a follow-up with Dr. Clarke later this month did discuss her COPD and left upper lobe lung nodule. She reportedly had a PET scan as an outpatient which I do not have the report or the images to review. She did have a CT of her chest 03/01/2024 which revealed a 2.4 cm spiculated nodule. She has refused bronchoscopic biopsy or surgical intervention in the past. She would be willing to do a CT-guided FNA per her account. She has at least a [id number] smoking history and quit smoking several months ago after being placed on supplemental oxygen. She has very significant emphysema on prior CT chest. Unfortunately I do not have outpatient PFTs to review. Chest x-ray does admission noted mild increase in size of the left upper lobe nodule and no other acute findings. Again, she notes that her respiratory symptoms are no different than when she came into the hospital. She denies any chronic cough symptoms. Allergies Allergy/AdvReac Type Severity Reaction Status Date / Time dog dander Allergy Severe congestion, Verified 04/22/24 07:46 SOB valsartan Allergy Severe Edema Verified 04/22/24 07:46 face/lips/tongue. levofloxacin [From Levaquin] Allergy Intermediate ITCHY Verified 04/22/24 07:46 HIVES ON TRUNK AND LEGS nickel Allergy Mild Rash. Verified 04/22/24 07:46 NAI Inhibitors AdvReac Intermediate Cough. Verified 04/22/24 07:46 influenza virus vaccine ts AdvReac Intermediate SINUS Verified 04/22/24 07:46 [id number] (36 mos,up) PRESSURE/DRAINAGE [From Fluarix] Home Medications Medication Instructions Recorded Confirmed Type nitroglycerin 0.4 mg sublingual 0.4 mg sublingual DIRECTED PRN 04/19/19 05/03/24 History tablet Chest Pain sotalol 80 mg tablet 80 mg PO BID 04/19/19 05/03/24 History aspirin 81 mg tablet,delayed 81 mg PO QAM 01/17/23 05/03/24 History release azelastine 137 mcg (0.1 %) nasal 1 spray intranasal AMHS 01/17/23 05/03/24 History spray spironolactone 25 mg tablet 25 mg PO QAM 01/17/23 05/03/24 History albuterol sulfate 2.5 mg/3 mL 2.5 mg inhalation DIRECTED PRN 06/26/23 05/03/24 History (0.083 %) solution for nebulization Shortness Of Breath Or Wheezing isosorbide mononitrate 30 mg 30 mg PO QAM #30 tabs 06/27/23 05/03/24 Rx tablet,extended release 24 hr albuterol sulfate 90 mcg/actuation 2 inh inhalation Q4H PRN Shortness 01/02/24 05/03/24 History aerosol inhaler Of Breath Or Wheezing budesonide 160 mcg-glycopyr 9 2 inh inhalation AMHS #1 inhaler 02/09/24 05/03/24 Rx mcg-formot 4.8 mcg/actuation HFA inhaler (Breztri Aerosphere) furosemide 20 mg tablet 40 mg (2 x 20 mg) PO QAM #60 tabs 02/09/24 05/03/24 Rx prednisone 10 mg tablet 10 mg PO DIRECTED 04/10/24 05/03/24 History warfarin 2.5 mg tablet 2.5 mg PO SUMOWEFR@1600 04/10/24 05/03/24 History warfarin 2.5 mg tablet 1.25 mg PO TUTHSA@1600 05/03/24 05/03/24 History Patient History Medical History (Updated 05/07/24 @ 13:26 by Aubrey Saha MD) Chronic diastolic (congestive) heart failure Tobacco abuse CAD (coronary artery disease), [place] coronary artery Hypertension Emphysema of lung Surgical History S/P right coronary artery (RCA) stent placement H/O: hysterectomy S/P appendectomy Family History Other Colon cancer Social History Smoking Status: Former smoker Tobacco Type: Cigarettes Cigarettes Per Day: smokes occasionally, some days doesn't smoke, other days smokes 3-5 cigs; Second Hand Exposure: No; Do You Dip or Chew Tobacco: No; Hx Alcohol Use: Yes Alcohol type: wine Alcohol Intake Frequency Comment: 1 glass of wine 3-5 days per week Hx Substance Use: No Preferred Language: Italian Communication Ability: Effective Visual Impairment: Limited Hearing Ability: Normal Shipping Clerk Required: No Beliefs That Will Affect Care: None marital status: / Current Living Situation: Alone How many Children do You have: 2 Feels Safe at Home: Yes Diet: regular caffeine: Yes during the past year weight has: decreased > 10 lbs Assistive Devices: Oxygen - Continuous Review of Systems Review of Systems: All systems reviewed & are unremarkable except as noted in HPI & below Physical Exam Constitutional: + frail appearing; no acute distress Neck: trachea midline, no thyromegaly Respiratory: + prolonged expiratory phase (Expiratory wheezes); no respiratory distress, no labored breathing, no cough and not tachypneic Auscultation: + diminished lung sounds; no wheezes Cardiovascular: Rate/Rhythm: regular rate Heart Sounds: normal S1, normal S2 and + murmur Extremities: + edema Gastrointestinal (Abdomen): normal bowel sounds, soft, nontender, no hepatosplenomegaly Musculoskeletal: Extremities: extremities normal to inspection Skin: no rashes, warm and dry Lymphatic: no cervical lymphadenopathy Results & Data Results & Data Vital Signs (Past 12 Hours) Vital Signs Temp Pulse Resp BP Pulse Ox O2 Del Method O2 Flow Rate 05/07/24 10:42 62 05/07/24 08:27 55 L 113/61 05/07/24 07:58 Nasal Cannula 4 05/07/24 07:50 36.5 C 52 L 16 118/57 L 100 Nasal Cannula 4 PG Care Time/CCT Total # of Minutes Spent Total Time Spent with Patient: Total time spent is greater than 50% in coordination of care (as documented) at patient's floor/unit and/or counseling patient: Coding Level of Care Code 57945 INT INP/OBS CARE 3/75MIN Diagnoses Dyspnea on minimal exertion R06.09 COPD (chronic obstructive pulmonary disease) J44.9 Oxygen dependent Z99.81 Cor pulmonale I27.81 Left upper lobe pulmonary nodule R91.1 Declining performance status R53.81
[2024-05-07] MEDS: WARFARIN SOD 1 MG TAB PO SCH (16:44)
--- NOTE | 2024-05-07 16:54 | Hospitalist Progress Note ---
Date of Service May 07, 2024 Assessment & Plan (1) Acute exacerbation of chronic obstructive pulmonary disease (COPD): (2) Hematoma of left lower extremity: (3) Pulmonary hypertension: (4) Left upper lobe pulmonary nodule: (5) Anticoagulated on Coumadin: (6) Prediabetes: (7) Hyperlipidemia: (8) CAD (coronary artery disease), [place] coronary artery: (9) Hypertension: (10) Chronic diastolic (congestive) heart failure: Plan Patient is an 79 yr female with PMH of COPD with chronic hypoxic respiratory failure on 4 L nasal cannula O2 at baseline, known lung nodule, dyslipidemia, prediabetes, paroxysmal atrial fibrillation on Coumadin, chronic diastolic heart failure, pulmonary hypertension, CAD (s/p AME to RCA), tobacco use and other medical problems listed below who presents to the ED with progressive shortness of breath x few weeks and was found to have a COPD exacerbation. Acute on chronic hypoxic respiratory failure Acute COPD exacerbation Chronic oxygen dependency--on 4 L at baseline --CXR: No acute cardiopulmonary findings. 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 Emphysema. -- COVID, influenza, RSV screen negative --Normal procalcitonin --Continue nebs, IV Solu-Medrol, doxycycline --Titrate oxygen to keep oxygen saturations 88 to 92% -- Will consider pulmonology evaluation -- Continue home inhalers -- Aggressive pulmonary hygiene with flutter, Mucinex, hypertonic saline nebs -- Has been refusing nebs --Decrease IV Solu-Medrol 40 mg to daily>> transition to prednisone -- Titrate oxygen Appreciate palliative care input Appreciate pulmonology input Poor prognosis Chronic diastolic heart failure Pulmonary HTN Chronic lower extremity edema Continue home diuretics, isosorbide Monitor volume status Left lung nodule ? Malignancy H/O Tobacco use - 64 pack year history Per Dr. Clarke's pulm note from Feb 2024, enlarging Left upper lobe nodule 1.8 X 2.3 cm, SUV 5.6 on PET scan 01/22/2024 Remonstrated on CXR as above Patient aware, does not want tissue diagnostic work up, or oncology evaluation/Rx including chemo or Radiation therapy regarding SUSHIL nodule Follow-up as outpatient Paroxysmal A Fib Continue sotalol INR therapeutic Continue Coumadin INR 2.9 today Adjust Coumadin dose as needed LLE hematoma Noted on previous admission Following with [facility] wound care, wound vac in place Coumadin resumed last month Appreciate mosaic worker help Continue wound VAC CAD Continue aspirin, Imdur patient discontinued statin in Feb 2024 per PCP note Prediabetes HbA1c 6.1 Monitor DVT Px: Coumadin Code status: DNR/DNI Disposition May benefit from rehab placement Admission and Anticipated Discharge Date Admission Date: May 03, 2024 Subjective Patient is seen and examined at bedside Offers no new complaints Dyspnea continues to improve Updated patient's daughter in detail over the phone Saturating well on baseline supplemental oxygen Denies any chest pain, nausea, vomiting, abdominal pain Review of Systems Review of Systems: All systems reviewed & are unremarkable except as noted in Subjective Physical Exam Physical Exam: Physical Exam: Vitals signs as noted above General Appearance: Thin, frail, chronic ill appearing, mild distress Head: normocephalic, Atraumatic Eyes: normal inspection, EOMI Neck: supple, Trachea midline Respiratory/Chest: Decreased breath sounds, clear to auscultation, No accessory muscle use Cardiovascular: S1, S2, No murmur Abdomen/GI:Soft, Non tender, Bowel sounds present Extremities/Musculoskeletal:normal inspection, + B/L LE edema, + left leg wound Neurologic/Psych:AAOX3, grossly no focal neurological deficits Skin: normal color, warm Results & Data Results & Data Vital Signs (Past 12 Hours) Vital Signs Temp Pulse Resp BP Pulse Ox O2 Del Method O2 Flow Rate 05/07/24 15:28 36.6 C 56 L 16 102/46 L 98 Nasal Cannula 4 05/07/24 10:42 62 05/07/24 08:27 55 L 113/61 05/07/24 07:58 Nasal Cannula 4 05/07/24 07:50 36.5 C 52 L 16 118/57 L 100 Nasal Cannula 4 Laboratory Results Short CBC 05/07/24 Range/Units 05:23 WBC 10.94 H (4.8-10.8) K/ul Hgb 12.1 (12.0-16.0) g/dl Hct 37.3 (37.0-47.0) % Plt Count 217 (130-400) K/uL BMP 05/07/24 05:23 Sodium 138 Potassium 4.2 Chloride 97 L Carbon Dioxide 37 H BUN 34 H Creatinine 0.71 Glucose 100 H Calcium 8.7 Urine 05/06/24 Range/Units 21:45 Urine Color Yellow Urine Appearance Clear (Clear) Urine pH 6.0 (4.5-7.5) Ur Specific [place] 1.023 (1.000-1.030) Urine Protein Negative (Negative) Urine Glucose (UA) Negative (Negative) (2) Hematoma of left lower extremity Encounter type: subsequent encounter Qualified Code(s): S80.12XD - Contusion of left lower leg, subsequent encounter (8) CAD (coronary artery disease), [place] coronary artery [place] vs. transplanted heart: [place] heart Associated angina: with unstable angina Qualified Code(s): I25.110 - Atherosclerotic heart disease of [place] coronary artery with unstable angina pectoris
--- NOTE | 2024-05-07 17:34 | Communication Note ---
Date of Service: May 07, 2024 Palliative Medicine Brief Note Pulm medicine consult ordered, reviewed and appreciated. She continues to decline hospice and other supportive interventions She remains in denial re her illness and severity she has now elected conditional code for chest compressions only overall, she is likely at her best baseline with very severe copd and cor pulmonale she does not want rehab trial she declines in home support extensive d/w pulm earlier, dtr wants to revisit hospice at home offered OP pall med which she declines again for now, i will sign off as pt has no interest in any pall med resources and support. Thank you for allowing us to participate in the ongoing care of this patient. Please page with any additional concerns. Connor Walker DNP Director, Palliative Medicine
[2024-05-07] MEDS ORDERED: MELATONIN 3 MG TAB PO PRN (21:36)
[2024-05-07] MEDS ORDERED: BENZONATATE 100 MG CAPSULE PO PRN (21:36)
[2024-05-08 08:06] LABS: Hematocrit (blood only) 36.7 % (37.0-47.0); Hemoglobin 11.8 g/dl (12.0-16.0); Mean Corpuscular Hgb Conc 32.2 g/dL (32.0-36.0); Mean Corpuscular Volume 93.4 fL (80.0-100.0); Mean Platelet Volume 11.2 fL (9.4-12.4); Platelet Count 202 K/uL (130-400); RDW Coefficient of Variation 12.7 % (11.5-14.5); RDW Standard Deviation 43.8 fL (36.4-46.3); Red Blood Count 3.93 M/uL (4.20-5.40); White Blood Count 10.36 K/ul (4.8-10.8)
[2024-05-08 08:26] LABS: BUN Creatinine Ratio 46.4 (10-20); Calcium 8.6 mg/dl (8.6-10.3); Creatinine Clr Calc Pharmacy 59.9 ml/min; Potassium 4.3 mmol/L (3.5-5.1)
[2024-05-08 08:31] LABS: INR 2.4 (0.9-1.1); Prothrombin Time 24.2 Seconds (9.0-12.0)
[2024-05-08] MEDS: predniSONE 20 MG TAB PO SCH (09:05)
--- NOTE | 2024-05-08 16:50 | Hospitalist Progress Note ---
Date of Service May 08, 2024 Assessment & Plan (1) Acute exacerbation of chronic obstructive pulmonary disease (COPD): (2) Hematoma of left lower extremity: (3) Pulmonary hypertension: (4) Left upper lobe pulmonary nodule: (5) Anticoagulated on Coumadin: (6) Prediabetes: (7) Hyperlipidemia: (8) CAD (coronary artery disease), [place] coronary artery: (9) Hypertension: (10) Chronic diastolic (congestive) heart failure: Plan Patient is an 79 yr female with PMH of COPD with chronic hypoxic respiratory failure on 4 L nasal cannula O2 at baseline, known lung nodule, dyslipidemia, prediabetes, paroxysmal atrial fibrillation on Coumadin, chronic diastolic heart failure, pulmonary hypertension, CAD (s/p AME to RCA), tobacco use and other medical problems listed below who presents to the ED with progressive shortness of breath x few weeks and was found to have a COPD exacerbation. Acute on chronic hypoxic respiratory failure Acute COPD exacerbation Chronic oxygen dependency--on 4 L at baseline --CXR: No acute cardiopulmonary findings. 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 Emphysema. -- COVID, influenza, RSV screen negative --Normal procalcitonin --Continue nebs, IV Solu-Medrol, doxycycline --Titrate oxygen to keep oxygen saturations 88 to 92% -- Will consider pulmonology evaluation -- Continue home inhalers -- Aggressive pulmonary hygiene with flutter, Mucinex, hypertonic saline nebs -- Has been refusing nebs --Decrease IV Solu-Medrol 40 mg to daily>> transition to prednisone -- Titrate oxygen Appreciate palliative care input Appreciate pulmonology input Poor prognosis Chronic diastolic heart failure Pulmonary HTN Chronic lower extremity edema Continue home diuretics, isosorbide Monitor volume status Left lung nodule ? Malignancy H/O Tobacco use - 64 pack year history Per Dr. Clarke's pulm note from Feb 2024, enlarging Left upper lobe nodule 1.8 X 2.3 cm, SUV 5.6 on PET scan 01/22/2024 Remonstrated on CXR as above Patient aware, does not want tissue diagnostic work up, or oncology evaluation/Rx including chemo or Radiation therapy regarding SUSHIL nodule Follow-up as outpatient Paroxysmal A Fib Continue sotalol INR therapeutic Continue Coumadin INR 2.4 today Adjust Coumadin dose as needed LLE hematoma Noted on previous admission Following with [facility] wound care, wound vac in place Coumadin resumed last month Appreciate organic extractions technician help Continue wound VAC CAD Continue aspirin, Imdur patient discontinued statin in Feb 2024 per PCP note Prediabetes HbA1c 6.1 Monitor DVT Px: Coumadin Code status: DNR/DNI -> ok w/ chest compressions per discussion w/ pall. med. yesterday Disposition - plan for DC home w/ HH - discussed w/ pt, family and CM at the bedside Admission and Anticipated Discharge Date Admission Date: May 03, 2024 Subjective Patient seen in follow up of severe copd/ copd exacerbation First pt seen earlier today, then seen again in late afternoon when her daughter arrived and discussed at the bedside - also w/ Jazz RECIO - discussed recommendations from yesterday visits from pulm. medicine and palliative medicine, discussed discharge options that are acceptable to her. Pt and daughter in agreement to discharge pt home with HH.Follow up with PCP and pulm. medicine. At this time not interested in other options for discharge such SNF or home hospice. Offers no new complaints Saturating well on baseline supplemental oxygen Denies any chest pain, nausea, vomiting, abdominal pain Review of Systems Review of Systems: All systems reviewed & are unremarkable except as noted in Subjective Physical Exam Physical Exam: General Appearance: Thin, frail, chronically ill appearing F in NAD, on suppl. O2 Head: normocephalic, Atraumatic Eyes: normal Neck: supple Respiratory/Chest: Decreased breath sounds, minimal exp. wheezes, No accessory muscle use Cardiovascular: S1, S2, No murmur Abdomen/GI:Soft, Non tender, Bowel sounds present Extremities/Musculoskeletal:normal inspection, + B/L LE edema, + left leg wound Neurologic/Psych:AAOX3, grossly no focal neurological deficits Skin: warm, dry Results & Data Results & Data Vital Signs (Past 12 Hours) Vital Signs Temp Pulse Pulse Resp BP BP Pulse Ox 05/08/24 15:52 57 L 99/58 L 05/08/24 15:04 36.5 C 55 L 16 92/41 L 97 05/08/24 14:06 19 05/08/24 12:57 36.7 C 54 L 22 102/55 L 96 05/08/24 09:03 62 101/55 L 05/08/24 07:56 36.6 C 55 L 20 112/65 96 05/08/24 07:47 O2 Del Method O2 Flow Rate 05/08/24 15:52 05/08/24 15:04 Nasal Cannula 4 05/08/24 14:06 05/08/24 12:57 Nasal Cannula 4 05/08/24 09:03 05/08/24 07:56 Nasal Cannula 4 05/08/24 07:47 Nasal Cannula 4 Laboratory Results 05/08/24 Range/Units 07:44 WBC 10.36 (4.8-10.8) K/ul RBC 3.93 L (4.20-5.40) M/uL Hgb 11.8 L (12.0-16.0) g/dl Hct 36.7 L (37.0-47.0) % MCV 93.4 (80.0-100.0) fL MCH 30.0 (25.0-34.0) pg MCHC 32.2 (32.0-36.0) g/dL RDW Std Deviation 43.8 (36.4-46.3) fL RDW Coeff of Anais 12.7 (11.5-14.5) % Plt Count 202 (130-400) K/uL MPV 11.2 (9.4-12.4) fL PT 24.2 H (9.0-12.0) Seconds INR 2.4 H (0.9-1.1) Sodium 137 (136-145) mmol/L Potassium 4.3 (3.5-5.1) mmol/L Chloride 96 L (98-107) mmol/L Carbon Dioxide 38 H (21-32) mmol/L Anion Gap 3 (3-11) BUN 32 H (6-23) mg/dl Creatinine 0.69 (0.6-1.2) mg/dl Est Cr Clr Drug Dosing 59.9 ml/min eGFR 87.13 BUN/Creatinine Ratio 46.4 H (10-20) Glucose 88 (70-99(Fasting)) mg/dl Calcium 8.6 (8.6-10.3) mg/dl Medications Administered Current Inpatient Medications Acetaminophen (Acetaminophen 325 Mg Tab) 650 mg PO Q4H PRN PRN Reason: Pain or Fever Stop: 06/02/24 13:11 Last Admin: 05/08/24 11:26 Dose: 650 mg Albuterol (Albuterol Hfa 8 Gm Inhaler) 2 puffs INH Q4H PRN PRN Reason: Shortness Of Breath Or Wheezin Stop: 06/02/24 13:11 Last Admin: 05/04/24 12:36 Dose: 2 puffs Aspirin (Aspirin 81 Mg Ectab) 81 mg PO QAM [facility] Stop: 06/03/24 08:59 Last Admin: 05/08/24 09:06 Dose: 81 mg Benzonatate (Benzonatate 100 Mg Capsule) 100 mg PO TID PRN PRN Reason: Cough Stop: 06/06/24 21:35 Doxycycline Hyclate (Doxycycline Hyclate 100 Mg Cap) 100 mg PO BID [facility]; Protocol Stop: 05/09/24 09:01 Fluticasone Furoate (Fluticasone Furoate 200mcg 14 Puffs/Inhaler) 1 puffs INH DAILY [facility] Stop: 06/04/24 08:59 Last Admin: 05/08/24 09:07 Dose: 1 puffs Furosemide (Furosemide 40 Mg Tab) 40 mg PO QAM [facility] Stop: 06/03/24 08:59 Last Admin: 05/08/24 09:06 Dose: 40 mg Guaifenesin (Guaifenesin Sugar Free 200 Mg/10 Ml Udc) 200 mg PO BID [facility] Stop: 06/03/24 21:44 Last Admin: 05/08/24 09:07 Dose: 200 mg Ipratropium [place] (Ipratropium [place] Neb Soln 0.02% 0.5mg/2.5ml Vial) 0.5 mg NEB QIDR PRN PRN Reason: sob or wheezing Stop: 06/03/24 14:59 Isosorbide Mononitrate (Isosorbide [place] Extended Rel 30 Mg Tabcr) [facility] [place]: 06/03/24 08:59 Last Admin: 05/08/24 09:06 Dose: 30 mg Levalbuterol HCl (Levalbuterol Hcl 0.63 Mg/3 Ml Neb) 0.63 mg NEB QIDR PRN; Protocol PRN Reason: Shortness Of Breath Or Wheezing Stop: 06/03/24 12:59 Melatonin (Melatonin 3 Mg Tab) 3 mg PO HS PRN PRN Reason: Sleep Stop: 06/06/24 21:35 Nitroglycerin (Nitroglycerin Sl 0.4 Mg/Tab Tab) 0.4 mg SL UD PRN PRN Reason: Chest Pain Stop: 06/02/24 13:11 Ondansetron HCl (Ondansetron Inj 2 Mg/Ml 2 Ml Vial) 4 mg IV Q6H PRN PRN Reason: Nausea Stop: 06/02/24 13:11 Polyethylene Glycol (Polyethylene (Miralax) 17 Gm Pack) 17 gm PO DAILY PRN PRN Reason: Constipation Stop: 06/02/24 13:11 Prednisone (Prednisone 20 Mg Tab) 40 mg PO DAILY [facility] Stop: 06/07/24 08:59 Last Admin: 05/08/24 09:05 Dose: 40 mg Sodium Chloride (Sodium Chlor 7% 4 Ml Neb) 4 ml NEB BIDR PRN PRN Reason: congestion Stop: 06/02/24 18:59 Sotalol HCl (Sotalol Hcl 80 Mg Tab) 80 mg PO BID [facility] Stop: 06/02/24 20:59 Last Admin: 05/08/24 09:06 Dose: 80 mg Spironolactone (Spironolactone 25 Mg Tab) 25 mg PO QAM [facility] Stop: 06/03/24 08:59 Last Admin: 05/08/24 09:04 Dose: 25 mg Umeclidinium/Vilanterol (Umeclidinium/Vilanterol 62.5/25mcg 7 Puffs/Inhaler) 1 puffs INH DAILY [facility] Stop: 06/03/24 08:59 Last Admin: 05/08/24 09:07 Dose: 1 puffs Warfarin Sodium (Warfarin Sod 2.5 Mg Tab) 2.5 mg PO SUMOWEFR@1600 [facility] Stop: 06/02/24 15:59 Last Admin: 05/06/24 17:19 Dose: 2.5 mg Warfarin Sodium (Warfarin Sod 1.25 Mg Tab) 1.25 mg PO TUTHSA@1600 [facility] Stop: 06/03/24 15:59 Last Admin: 05/04/24 17:16 Dose: 1.25 mg Warfarin Sodium (Warfarin Sod 1 Mg Tab) 1 mg PO DAILY@1600 [facility] Stop: 06/06/24 15:59 Last Admin: 05/07/24 16:44 Dose: 1 mg (2) Hematoma of left lower extremity Encounter type: subsequent encounter Qualified Code(s): S80.12XD - Contusion of left lower leg, subsequent encounter (8) CAD (coronary artery disease), [place] coronary artery Associated angina: with unstable angina [place] vs. transplanted heart: [place] heart Qualified Code(s): I25.110 - Atherosclerotic heart disease of [place] coronary artery with unstable angina pectoris
[2024-05-08 20:14] VITALS: RESP 18
[2024-05-08] MEDS: DOXYCYCLINE HYCLATE 100 MG CAP PO SCH (21:30)
[2024-05-09] MEDS: traMADol HCL 50 MG TABLET PO STA (01:22)
[2024-05-09 07:21] LABS: INR 1.9 (0.9-1.1); Prothrombin Time 19.4 Seconds (9.0-12.0)
[2024-05-09 07:53] VITALS: BP 155/77; PULSE 56; TEMP 97.9; O2SAT 98
--- NOTE | 2024-05-09 12:14 | Discharge Summary ---
Date of Service May 09, 2024 Admission HPI Per Admitting Provider This is an 79-year-old female with PMH of COPD with chronic hypoxic respiratory failure on 4 L nasal cannula O2 at baseline, known lung nodule, dyslipidemia, prediabetes, paroxysmal atrial fibrillation on Coumadin, chronic diastolic heart failure, pulmonary hypertension, CAD (s/p AME to RCA), tobacco use and other medical problems listed below who presents to the ED with progressive shortness of breath x few weeks. Patient has been admitted to our service in February and March for acute hypoxic respiratory failure in setting of COPD exacerbation/cor pulmonale and A-fib. Over the past few weeks, patient has had progressive shortness of breath at home despite being compliant with her baseline 4 L nasal cannula O2. Was prescribed a prednisone taper by PCP at the beginning of April but states it has not helped much. Started to have trouble ambulating even within her home from her bedroom to her kitchen, so presented today for further evaluation. During last admission, Coumadin was discontinued due to hematoma which she now has a wound VAC for and follows [facility]. Per PCP note from March, Coumadin has been resumed in setting of paroxysmal A-fib. States she has been compliant with meds including diuretic, but did not take any this morning because she was too short of breath. Lives alone at home and ambulates without assistive device. Denies any recent fever, chills. Less productive cough than usual and feels she cannot clear her secretions. No chest pain, palpitations, nausea, vomiting, abd pain, dysuria, diarrhea or constipation. States she has not been smoking over the past month since starting oxygen. Admission Exam Per Admitting Provider General Appearance: WD/WN, vitals as above, NAD, sitting up in bed, pleasant, coversationally dyspneic Head: normocephalic, atraumatic Eyes: normal inspection, PERRL, conjunctivae normal, anicteric sclerae ENT: external ear and nose normal, oropharynx normal Neck: normal visual inspection, trachea midline, no thyromegaly Respiratory: increased respiratory effort, diminished breath sounds, diffuse expiratory wheezes, + accessory muscle use Cardiovascular: regular rate, rhythm,normal peripheral pulses, 1+ BLE edema. Vessels: no JVD Chest: normal inspection of chest Abdomen/GI: normal bowel sounds, soft, nontender, no hepatosplenomegaly Extremities/Musculoskeletal: LLE with nai bandage in place, wound vac. No cyanosis or clubbing, extremities motor strength 5/5 Neurologic: PERRL, EOMI, accommodation nl, no face palsy, no dysarthria, CN's II-XI intact bilaterally and moves all extremities Psychiatric: A+Ox3, euthymic affect Skin: no rashes, normal color, warm/dry Principal Diagnosis Acute on chronic hypoxic respiratory failure Acute COPD exacerbation Discharge Exam General Appearance: Thin, frail, chronically ill appearing F in NAD, on suppl. O2 Head: normocephalic, Atraumatic Eyes: normal Neck: supple Respiratory/Chest: Decreased breath sounds, minimal exp. wheezes, No accessory muscle use Cardiovascular: S1, S2, No murmur Abdomen/GI:Soft, Non tender, Bowel sounds present Extremities/Musculoskeletal:normal inspection, + B/L LE edema, + left leg wound Neurologic/Psych:AAOX3, grossly no focal neurological deficits Skin: warm, dry Discharge Data Allergies Allergy/AdvReac Type Severity Reaction Status Date / Time dog dander Allergy Severe congestion, Verified 04/22/24 07:46 SOB valsartan Allergy Severe Edema Verified 04/22/24 07:46 face/lips/tongue. levofloxacin [From Levaquin] Allergy Intermediate ITCHY Verified 04/22/24 07:46 HIVES ON TRUNK AND LEGS nickel Allergy Mild Rash. Verified 04/22/24 07:46 NAI Inhibitors AdvReac Intermediate Cough. Verified 04/22/24 07:46 influenza virus vaccine ts AdvReac Intermediate SINUS Verified 04/22/24 07:46 [id number] (36 mos,up) PRESSURE/DRAINAGE [From Fluarix] Consultations 05/03/24 11:01 ED Decision to Admit Stat 05/06/24 09:34 Consult Palliative Care Routine 05/07/24 10:13 Consult Pulmonology Routine Hospital Course (1) Acute exacerbation of chronic obstructive pulmonary disease (COPD): (2) Hematoma of left lower extremity: (3) Pulmonary hypertension: (4) Left upper lobe pulmonary nodule: (5) Anticoagulated on Coumadin: (6) Prediabetes: (7) Hyperlipidemia: (8) CAD (coronary artery disease), [place] coronary artery: (9) Hypertension: (10) Chronic diastolic (congestive) heart failure: Plan Patient is an 79 yr female with PMH of COPD with chronic hypoxic respiratory failure on 4 L nasal cannula O2 at baseline, known lung nodule, dyslipidemia, prediabetes, paroxysmal atrial fibrillation on Coumadin, chronic diastolic heart failure, pulmonary hypertension, CAD (s/p AME to RCA), tobacco use and other medical problems listed below who presents to the ED with progressive shortness of breath x few weeks and was found to have a COPD exacerbation. Acute on chronic hypoxic respiratory failure Acute COPD exacerbation Chronic oxygen dependency--on 4 L at baseline --CXR: No acute cardiopulmonary findings. 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 Emphysema. -- COVID, influenza, RSV screen negative --Normal procalcitonin --Continue nebs, IV Solu-Medrol, doxycycline --Titrate oxygen to keep oxygen saturations 88 to 92% -- Will consider pulmonology evaluation -- Continue home inhalers -- Aggressive pulmonary hygiene with flutter, Mucinex, hypertonic saline nebs -- Has been refusing nebs --Decrease IV Solu-Medrol 40 mg to daily>> transition to prednisone - continue prednisone 40 mg for 5 days per pulmonary med. -- Titrate oxygen Appreciate palliative care input - at this point pt does not wish to follow up w/ palliative medicine. Pt will follow up w/ PCP and will further discuss. Appreciate pulmonology input - end stage COPD -> recommend continuing home inhalers, switching to prednisone, [facility] Poor prognosis Chronic diastolic heart failure Pulmonary HTN Chronic lower extremity edema Continue home diuretics, isosorbide Monitor volume status Left lung nodule ? Malignancy H/O Tobacco use - 64 pack year history Per Dr. Clarke's pulm note from Feb 2024, enlarging Left upper lobe nodule 1.8 X 2.3 cm, SUV 5.6 on PET scan 01/22/2024 Remonstrated on CXR as above Patient aware, does not want tissue diagnostic work up, or oncology evaluation/Rx including chemo or Radiation therapy regarding SUSHIL nodule Follow-up as outpatient Paroxysmal A Fib Continue sotalol INR therapeutic Continue Coumadin INR 2.4 today Adjust Coumadin dose as needed LLE hematoma Noted on previous admission Following with [facility] wound care, wound vac in place Coumadin resumed last month Appreciate bounty trapper help Continue wound VAC CAD Continue aspirin, Imdur patient discontinued statin in Feb 2024 per PCP note Prediabetes HbA1c 6.1 Monitor Total Time Total Time Spent Total Time Spent (In Minutes): 40 Discharge Plan Discharge Items Patient Disposition: Home - Home Health Services Reason For Visit: COPD EXACERBATION, ACUTE ON CHRONIC HYPOXIC RESP F Discharge Diagnosis: Acute on chronic hypoxic respiratory failure Acute COPD exacerbation Activity: Per Instructions section Non-emergency contact: Primary Care Provider, Specialist and Lead Janitor Call non-emergency contact if: you have any medication questions and your symptoms worsen Follow-up/Referrals: Khoa Hui MD [Primary Care Provider] - (Date & Time 05/13/2024 9:00 AM Provider Khoa Hui MD Department Family Practice [facility] ) Segundo Clarke MD [Outside Practitioners] - (Date & Time 05/20/2024 12:40 PM Provider Segundo Clarke MD Department Pulmonary Medicine, [facility] ) Diet: Carb Count or DM1 and Heart Healthy Addtl Attending Provider Instructions: Follow up with your primary care provider, accounts supervisor, wound care and anticoagulation clinic. Finish treatment with prednisone and antibiotic. Pending Studies at Discharge: No Stand-Alone Forms: [facility] [employer], Smoking Cessation Medications and DC Order Prescriptions: New prednisone 20 mg Tablet 40 mg PO DAILY 4 Days Qty: 8 0RF doxycycline hyclate 100 mg capsule 100 mg PO BID Qty: 2 0RF Continued warfarin 2.5 mg tablet 2.5 mg PO SUMOWEFR@1600 sotalol 80 mg Tablet 80 mg PO BID nitroglycerin 0.4 mg Tablet, Sublingual 0.4 mg sublingual DIRECTED PRN (Reason: Chest Pain) Rx Instructions: Place 1 Tablet under the tongue every 5 minutes as needed. spironolactone 25 mg tablet 25 mg PO QAM aspirin 81 mg Tablet,Delayed Release (Dr/Ec) 81 mg PO QAM azelastine 137 mcg (0.1 %) aerosol,spray 1 spray INTRANASAL [facility] albuterol sulfate 2.5 mg /3 mL (0.083 %) Solution For Nebulization 2.5 mg INHALATION DIRECTED PRN (Reason: Shortness Of Breath Or Wheezing) isosorbide mononitrate 30 mg Tablet Extended Release 24 Hr 30 mg PO QAM Qty: 30 0RF albuterol sulfate 90 mcg/actuation HFA aerosol inhaler 2 inh INHALATION Q4H PRN (Reason: Shortness Of Breath Or Wheezing) furosemide 20 mg Tablet 40 mg PO QAM Qty: 60 0RF Breztri Aerosphere 160-9-4.8 mcg/actuation HFA aerosol inhaler 2 inh INHALATION [facility] Qty: 1 0RF warfarin 2.5 mg tablet 1.25 mg PO TUTHSA@1600 Held prednisone 10 mg tablet 10 mg PO DIRECTED Hold Instructions: Resume on 05/16/24. discuss with primary care provider Rx Instructions: 2 p.o. daily for 2 days and then 1 p.o. daily for 6 days Discharge Orders: Discharge Order (Routine); Ordered 05/09/24 Ordered By: Da Meehan/Other Patient Handouts: A1C Admission Data Admit Date/Time: 05/03/24 11:40 Attending Provider: Da Villalba Admit Provider: Thomas Moulton Primary Care Provider: Khoa Hui Other Providers: Thomas Moulton; Senia Downs; Yaa Walker; Ethan Vallejo; Aubrey Saha; Monico Walsh; Gulshan King; Tabby No; Latricia Cowan; Kwame Nunez; Leeroy Guerra; Tomasa Holguin; Caesar Meng
--- NOTE | 2024-05-13 15:25 | Electrocardiogram Report ---
Test Reason : Blood Pressure : */* mmHG Vent. Rate : 54 BPM Atrial Rate : 54 BPM P-R Int : 132 ms QRS Dur : 104 ms QT Int : 448 ms P-R-T Axes : 74 77 67 degrees QTcB Int : 424 ms Sinus bradycardia Incomplete right bundle branch block Unusual bimodal T wave (uncertain significance) Borderline ECG When compared with ECG of 03-May-2024 09:40, T wave abnormality now present Confirmed by Marcelo Chao ([id number]) on 05/13/2024 3:25:51 PM Referred By: REFERRED SELF Confirmed By: Marcelo Chao
== END 2024-05-09 14:24 | disposition home health service (06) | DRG 190 ==
LOC: ED 09:07 → 4W 11:40 → SUATTDRO 11:40 → 4W 12:18 → 3W 05-06 17:57

== ENCOUNTER 2024-06-07 19:22 | Inpatient (IN) ==
[2024-06-07] MEDS: methylPREDNISolone 125 MG/2 ML VIAL IV STA (19:57)
[2024-06-07] MEDS: ALBUT/IPRATROP 3MG/0.5MG NEB 3 ML VIAL NEB STA (19:58)
[2024-06-07 20:02] LABS: Basophils # (auto) 0.03 K/uL (0.00-0.20); Basophils % (auto) 0.3 %; Eosinophils # (auto) 0.05 K/uL (0.00-0.50); Eosinophils % (auto) 0.4 %; Hematocrit (blood only) 40.6 % (37.0-47.0); Hemoglobin 12.9 g/dl (12.0-16.0); Immature Granulocytes # (auto) 0.06 K/uL (0.01-0.20); Immature Granulocytes % (auto) 0.5 %; Lymphocytes # (auto) 1.15 K/uL (1.20-3.40); Lymphocytes % (auto) 9.8 %; Mean Corpuscular Hemoglobin 29.7 pg (25.0-34.0); Mean Corpuscular Hgb Conc 31.8 g/dL (32.0-36.0); Mean Corpuscular Volume 93.3 fL (80.0-100.0); Mean Platelet Volume 10.1 fL (9.4-12.4); Monocytes # (auto) 1.16 K/uL (0.11-0.59); Monocytes % (auto) 9.9 %; Neutrophils # (auto) 9.27 K/uL (1.40-6.50); Neutrophils % (auto) 79.1 %; Platelet Count 320 K/uL (130-400); RDW Standard Deviation 44.2 fL (36.4-46.3); Red Blood Count 4.35 M/uL (4.20-5.40); White Blood Count 11.72 K/ul (4.8-10.8)
[2024-06-07 20:17] LABS: Albumin Level 3.6 gm/dl (3.4-5.0); BUN Creatinine Ratio 24.6 (10-20); Bilirubin,Total 0.8 mg/dl (0.2-1.0); Calcium 9.4 mg/dl (8.6-10.3); Creatinine Clr Calc Pharmacy 67.7 ml/min; Globulin 3.6 gm/dl (2.5-4.0); Magnesium 1.8 mg/dl (1.7-2.4); Potassium 4.3 mmol/L (3.5-5.1); Total Protein 7.2 gm/dl (6.0-8.3)
--- NOTE | 2024-06-07 20:23 | Emergency Department Note ---
Impression & Plan Acute and chronic respiratory failure with hypoxia, Acute exacerbation of chronic obstructive pulmonary disease (COPD), Elevated brain natriuretic peptide (BNP) level ED Provider Note ED Provider Note NAME: CAMILA CASTILLO AGE:79 SEX: Female : 1945 ARRIVES VIA: EMS INFORMANT: Patient ED PROVIDER(s): Lexi Leal DO CHIEF COMPLAINT: Shortness of breath HPI: This is an 79-year-old female presents emergency department due to worsening shortness of breath today. Patient does have a known history of COPD and does wear oxygen at home. She states her breathing seemed worse today compared to baseline. She did try using her home MDIs without any improvement. She denies any change in cough or sputum production. She denies fevers, chills, nasal congestion, rhinorrhea. She denies any chest pain or palpitations. Patient was recently hospitalized with similar symptoms. EMS did provide the patient with a DuoNeb which she states did not help. They also tried to initiate CPAP which she could not tolerate as she does not like things on her face. They also tried administering 1 nitro sublingual's patient also has a history of CHF. Patient states she does have chronic lower extremity edema and she feels this is unchanged. She is also been following with the [facility] wound care clinic due to an ulcerative area to the distal left lower extremity from where she had a hematoma. PAST MEDICAL HISTORY:See Below PAST SURGICAL HISTORY:See Below FAMILY HISTORY:See Below SOCIAL HISTORY:See Below HOME MEDICATIONS:See Below ALLERGIES:See Below VITALS:See Below PHYSICAL EXAMINATION: GENERAL: alert, unwell appearing, moderate distress, non-toxic EYE EXAM: normal conjunctiva, PERRL and EOM's grossly intact OROPHARYNX: no exudate, no erythema, lips, buccal mucosa, and tongue normal and mucous membranes are dry NECK: supple, no nuchal rigidity, no adenopathy, non-tender LUNGS: Decreased bilaterally to auscultation. Normal chest wall mechanics, no w/r/r, increased work of breathing, tachypnea HEART: no murmurs, S1 normal and S2 normal ABDOMEN: abdomen soft, non-tender, normo-active bowel sounds, no masses, no rebound or guarding. BACK: Back is symmetrical on inspection and there is no deformity, no midline tenderness, no CVA tenderness. SKIN: no rashes, petechiae, orbruising UPPER EXTREMITIES: upper extremities are grossly normal. FROM, nml pulses b/l. LOWER EXTREMITIES: 2+ b/l pitting edema. FROM, nml pulses b/l. Dressing noted to the distal left lower extremity. NEURO EXAM: Normal sensorium, cranial nerves II-XII grossly intact, normal speech, no facial droop,nogross weakness of arms, no gross weakness of legs. Gross sensation intact. No ataxia. Vital Signs: reviewed and remarkable Differential Diagnosis: pneumonia, bronchitis, COPD/Asthma exacerbation, pneumothorax, pulmonary embolism, congestive heart failure, acute coronary syndrome, as well as others were considered MEDICAL DECISION MAKING: This is an 79-year-old female brought in by EMS due to increased shortness of breath. Patient with a history of COPD and CHF and does wear oxygen chronically at home per her report. Labs drawn and sent, IV established, EKG and chest ray performed at bedside interpreted me and patient monitored on telemetry. Patient initially turned up to a higher level of oxygen via nasal cannula she does wear 4 L/min at home. This did not help her work of breathing despite maintaining her oxygenation. Respiratory contacted and patient transition to high flow nasal cannula as she could not tolerate CPAP due to concern for the covering of her face and claustrophobia. Patient improved while on high flow nasal cannula. She was also given IV Solu-Medrol and a DuoNeb. I did review patient's recent admission approximately 1 month ago. Patient with history of metastatic disease additionally. She is anticoagulated due to history of atrial fibrillation. Family presented to bedside eventually and I updated them additionally. We discussed missing doses of her diuretic due to difficulty getting up and getting to the restroom due to the pain in her back and the concern that the pain medication she was previously prescribed is also making her nauseated. Patient was given a dose of IV Lasix here. Her BNP was noted to be elevated compared to prior. Patient's INR therapeutic and I do not suspect occult PE despite history of malignancy. Upon review of EMR, patient has previously declined palliative management. Due to complex medical history and likely multifactorial etiology for her shortness of breath this evening, case discussed with the hospitalist team for additional evaluation and management. Consultation(s): 2101: Discussed with Dr. Cage, [facility] hospitalist team, for additional evaluation and management. ER Treatment Provided: See below 2034: Two daughters now present at bedside additionally. Patient reports she is feeling improved since being started on high flow nasal cannula and does appear clinically improved. Daughter states she has had difficulty taking pain medication which makes her nauseated and so she has missed a few doses of her diuretic. She also states due to the pain in her back she has had difficulty getting to the bathroom when she does take her diuretic. Diagnostics Interpreted By Me: -ECG: Normal sinus at 74, normal axis, normal intervals, no acute ST/T wave changes -Cardiac Monitoring: An order was placed for continuous cardiac monitoring. The monitor shows a rate of 78 with normal sinus rhythm. -Laboratory studies: As stated above and show below. -Imaging studies: cxr: Triage Nursing Note Reviewed Prior/Outside Records Reviewed Critical Care: Critical care of 48 min performed to assess and manage high likelihood of life-threatening dyspnea and hypoxia, involving labs and imaging performed with assessment to evaluate dyspnea and hypoxia diagnosis with frequent reassessment. This time includes bedside time, treatment discussions with patient/family/consultants, documentation time and excludes procedure time. Past Med/Surg History Problem List (Updated 06/08/24 @ 16:15 by Gulshan iKng MD, [facility]) End stage COPD (HFpEF) heart failure with preserved ejection fraction Elevated brain natriuretic peptide (BNP) level (Acute) Acute exacerbation of chronic obstructive pulmonary disease (COPD) (Acute) Acute and chronic respiratory failure with hypoxia (Acute) Metastatic cancer (Acute) Insufficiency fracture (Acute) Lower back pain (Acute) Anticoagulated on Coumadin (Acute) Acute upper back pain (Acute) Declining performance status Oxygen dependent Dyspnea on minimal exertion Palliative care by specialist Advanced care planning/counseling discussion Weakness generalized Dyspnea and respiratory abnormalities Hematoma of left lower extremity (Acute) Cor pulmonale Pulmonary hypertension Left upper lobe pulmonary nodule Anticoagulated on Coumadin (Acute) Acute exacerbation of chronic obstructive pulmonary disease (COPD) (Acute) COPD (chronic obstructive pulmonary disease) (Chronic) Prediabetes (Chronic) Hyperlipidemia (Chronic) Medical History Chronic diastolic (congestive) heart failure Tobacco abuse CAD (coronary artery disease), [place] coronary artery Hypertension Emphysema of lung Surgical History S/P right coronary artery (RCA) stent placement H/O: hysterectomy S/P appendectomy Family History Other Colon cancer Social History Smoking Status: Former smoker Tobacco Type: Cigarettes Cigarettes Per Day: smokes occasionally, some days doesn't smoke, other days smokes 3-5 cigs; Second Hand Exposure: No; Do You Dip or Chew Tobacco: No; Hx Alcohol Use: Yes Alcohol type: wine Alcohol Intake Frequency Comment: 1 glass of wine 3-5 days per week Hx Substance Use: No Preferred Language: Vietnamese Communication Ability: Effective Visual Impairment: Limited Hearing Ability: Normal Coat Cutter Required: No Beliefs That Will Affect Care: None marital status: / Current Living Situation: Alone How many Children do You have: 2 Feels Safe at Home: Yes Diet: regular caffeine: Yes during the past year weight has: decreased > 10 lbs Assistive Devices: Oxygen - Continuous Allergies Allergies Allergy/AdvReac Type Severity Reaction Status Date / Time dog dander Allergy Severe congestion, Verified 05/17/24 14:11 SOB valsartan Allergy Severe Edema Verified 05/17/24 14:11 face/lips/tongue. levofloxacin [From Levaquin] Allergy Intermediate ITCHY Verified 05/17/24 14:11 HIVES ON TRUNK AND LEGS nickel Allergy Mild Rash. Verified 05/17/24 14:11 NAI Inhibitors AdvReac Intermediate Cough. Verified 05/17/24 14:11 influenza virus vaccine ts AdvReac Intermediate SINUS Verified 05/17/24 14:11 [id number] (36 mos,up) PRESSURE/DRAINAGE [From Fluarix] Home Meds Home Medications Medication Instructions Recorded Confirmed albuterol sulfate 2.5 mg/3 mL 2.5 mg continuous nebulization Q4H 06/07/24 06/07/24 (0.083 %) solution for nebulization PRN sob albuterol sulfate 90 mcg/actuation 2 puff inhalation Q4H PRN 06/07/24 06/07/24 aerosol inhaler Shortness Of Breath Or Wheezing aspirin 81 mg tablet,delayed 81 mg PO DAILY 06/07/24 06/07/24 release azelastine 137 mcg (0.1 %) nasal 1 spray intranasal BID 06/07/24 06/07/24 spray budesonide 160 mcg-glycopyr 9 2 inh inhalation BID 06/07/24 06/07/24 mcg-formot 4.8 mcg/actuation HFA inhaler (Breztri Aerosphere) furosemide 20 mg tablet 40 mg PO DAILY 06/07/24 06/07/24 isosorbide mononitrate 30 mg 30 mg PO DAILY 06/07/24 06/07/24 tablet,extended release 24 hr nitroglycerin 0.4 mg sublingual 0.4 mg sublingual UD PRN Chest Pain 06/07/24 06/07/24 tablet oxycodone 5 mg tablet 5 mg PO TID PRN Pain 06/07/24 06/07/24 sotalol 80 mg tablet 80 mg PO BID 06/07/24 06/07/24 spironolactone 25 mg tablet 25 mg PO DAILY 06/07/24 06/07/24 warfarin 2.5 mg tablet 2.5 mg PO UD 06/07/24 06/07/24 Results & Data (ED) Vital Signs Vital Signs - 24 hr 06/07/24 20:00 06/07/24 20:22 Pulse Rate [Apical] 73 74 Respiratory Rate 26 H 20 Respiratory Effort / Characteristics Spontaneous Labored Short of Breath Blood Pressure [Right Arm] 150/106 H Blood Pressure Mean [Right Arm] 120 Pulse Oximetry 95 95 Oxygen Delivery Method High Flow Nasal Cannula High Flow Nasal Cannula Oxygen Flow Rate 30 Fraction of Inspired Oxygen 40 Laboratory Data 06/08/24 05:30 06/08/24 05:30 Lab Results 06/07/24 Range/Units 19:45 WBC 11.72 H (4.8-10.8) K/ul RBC 4.35 (4.20-5.40) M/uL Hgb 12.9 (12.0-16.0) g/dl Hct 40.6 (37.0-47.0) % MCV 93.3 (80.0-100.0) fL MCH 29.7 (25.0-34.0) pg MCHC 31.8 L (32.0-36.0) g/dL RDW Std Deviation 44.2 (36.4-46.3) fL RDW Coeff of Anais 13.0 (11.5-14.5) % Plt Count 320 (130-400) K/uL MPV 10.1 (9.4-12.4) fL Immature Gran % (Auto) 0.5 % Neut % (Auto) 79.1 % Lymph % (Auto) 9.8 % [place] % (Auto) 9.9 % Eos % (Auto) 0.4 % Baso % (Auto) 0.3 % Neut # (Auto) 9.27 H (1.40-6.50) K/uL Lymph # (Auto) 1.15 L (1.20-3.40) K/uL [place] # (Auto) 1.16 H (0.11-0.59) K/uL Eos # (Auto) 0.05 (0.00-0.50) K/uL Baso # (Auto) 0.03 (0.00-0.20) K/uL Immature Gran # (Auto) 0.06 (0.01-0.20) K/uL PT 23.9 H (9.0-12.0) Seconds INR 2.4 H (0.9-1.1) Sodium 134 L (136-145) mmol/L Potassium 4.3 (3.5-5.1) mmol/L Chloride 95 L (98-107) mmol/L Carbon Dioxide 33 H (21-32) mmol/L Anion Gap 6 (3-11) BUN 15 (6-23) mg/dl Creatinine 0.61 (0.6-1.2) mg/dl Est Cr Clr Drug Dosing 67.7 ml/min eGFR 89.76 BUN/Creatinine Ratio 24.6 H (10-20) Glucose 114 H (70-99(Fasting)) mg/dl Calcium 9.4 (8.6-10.3) mg/dl Magnesium 1.8 (1.7-2.4) mg/dl Total Bilirubin 0.8 (0.2-1.0) mg/dl AST 16 (13-39) U/L ALT 18 (7-52) U/L Alkaline Phosphatase 110 H (34-104) U/L Troponin I High Sens 16.0 H (0-14) pg/ml B-Natriuretic Peptide 448 H (0-100) pg/ml Total Protein 7.2 (6.0-8.3) gm/dl Albumin 3.6 (3.4-5.0) gm/dl Globulin 3.6 (2.5-4.0) gm/dl Albumin/Globulin Ratio 1.0 (0.9-2) Lipase 5 L (11-82) U/L Adenovirus (PCR) Not Detected (NotDetected) B. pertussis DNA (PCR) Not Detected (NotDetected) B.parapertussis DNA PCR Not Detected (NotDetected) C. pneumoniae DNA (PCR) Not Detected (NotDetected) Coronavirus OC43 (PCR) Not Detected (NotDetected) Coronavirus HKU1 (PCR) Not Detected (NotDetected) Coronavirus 229E (PCR) Not Detected (NotDetected) SARS-CoV-2 (PCR) Not Detected (NotDetected) Coronavirus NL63 (PCR) Not Detected (NotDetected) Human Metapneumovir PCR Not Detected (NotDetected) Influenza Type A (PCR) Not Detected (NotDetected) Influenza Type B (PCR) Not Detected (NotDetected) M. pneumoniae (PCR) Not Detected (NotDetected) Parainfluenza 1 (PCR) Not Detected (NotDetected) Parainfluenza 2 (PCR) Not Detected (NotDetected) Parainfluenza 3 (PCR) Not Detected (NotDetected) Parainfluenza 4 (PCR) Not Detected (NotDetected) RSV (PCR) Not Detected (NotDetected) Entero/Rhino (PCR) Not Detected (NotDetected) Administered Medications Albuterol (Albut/Ipratrop 3mg/0.5mg Neb 3 Ml Vial) 3 ml NEB QIDR DONOVAN; Protocol Stop: 07/08/24 06:59 Last Admin: 06/08/24 16:26 Dose: 3 ml Documented By: Admin: 06/08/24 14:58 Dose: 3 ml Documented By: Admin: 06/08/24 09:49 Dose: Not Given Documented By: Admin: 06/08/24 07:34 Dose: 3 ml Documented By: CARLA Albuterol (Albut/Ipratrop 3mg/0.5mg Neb 3 Ml Vial) 3 ml NEB Q4H PRN; Protocol PRN Reason: Shortness Of Breath Or Wheezing Stop: 07/08/24 00:34 Last Admin: 06/08/24 09:49 Dose: 3 ml Documented By: CARLA Aspirin (Aspirin 81 Mg Ectab) 81 mg PO DAILY [facility] Stop: 07/08/24 08:59 Last Admin: 06/08/24 09:21 Dose: 81 mg Documented By: GLORIA Azelastine HCl (Azelastine Hcl 0.1% Nasal 200 Sprays/27,400 Mcg Btl) 1 sprays NA BID [facility] Stop: 07/08/24 08:59 Last Admin: 06/08/24 09:22 Dose: 1 sprays Documented By: GLORIA Doxycycline Hyclate (Doxycycline Hyclate 100 Mg Cap) 100 mg PO BID [facility] Stop: 06/13/24 00:34 Last Admin: 06/08/24 10:58 Dose: Not Given Documented By: Admin: 06/08/24 03:21 Dose: 100 mg Documented By: ERWIN Fluticasone Furoate (Fluticasone Furoate 200mcg 14 Puffs/Inhaler) 1 puffs INH DAILY [facility] Stop: 07/08/24 08:59 Last Admin: 06/08/24 09:21 Dose: 1 puffs Documented By: GLORIA Furosemide (Furosemide 40 Mg/4 Ml Vial) 40 mg IV DAILY [facility] Stop: 07/08/24 08:59 Last Admin: 06/08/24 09:21 Dose: 40 mg Documented By: GLORIA Ceftriaxone Sodium (Rocephin) 2,000 mg in 50 mls @ 100 mls/hr IV Q24H [facility] Stop: 06/13/24 05:59 Last Infusion: 06/08/24 08:55 Dose: Infused Documented By: Admin: 06/08/24 06:46 Dose: 100 mls/hr Documented By: ERIWN Methylprednisolone 40 mg/ (Syringe) 0.64 mls @ 1.5 mls/min IV Q8H [facility] Stop: 07/08/24 07:59 Last Admin: 06/08/24 16:53 Dose: 1.5 mls/min Documented By: Admin: 06/08/24 09:24 Dose: 1.5 mls/min Documented By: GLORIA Doxycycline Hyclate 100 mg/ (Dextrose) 100 mls @ 50 mls/hr IV Q12H [facility] Stop: 06/13/24 10:59 Last Infusion: 06/08/24 14:51 Dose: Infused Documented By: Admin: 06/08/24 12:38 Dose: 50 mls/hr Documented By: GLORIA Isosorbide Mononitrate (Isosorbide [place] Extended Rel 30 Mg Tabcr) 30 mg PO DAILY [facility] Stop: 07/08/24 08:59 Last Admin: 06/08/24 09:21 Dose: 30 mg Documented By: GLORIA Sotalol HCl (Sotalol Hcl 80 Mg Tab) 80 mg PO BID [facility] Stop: 07/08/24 08:59 Last Admin: 06/08/24 09:21 Dose: 80 mg Documented By: GLORIA Spironolactone (Spironolactone 25 Mg Tab) 25 mg PO DAILY [facility] Stop: 07/08/24 08:59 Last Admin: 06/08/24 09:21 Dose: 25 mg Documented By: GLORIA Umeclidinium/Vilanterol (Umeclidinium/Vilanterol 62.5/25mcg 7 Puffs/Inhaler) 1 puffs INH DAILY [facility] Stop: 07/08/24 08:59 Last Admin: 06/08/24 09:21 Dose: 1 puffs Documented By: GLORIA Warfarin Sodium (Warfarin Sod 1.25 Mg Tab) 1.25 mg PO [id number]@1600 [facility] Stop: 07/08/24 15:59 Last Admin: 06/08/24 16:52 Dose: 1.25 mg Documented By: TRAN Discontinued Medications Albuterol (Albut/Ipratrop 3mg/0.5mg Neb 3 Ml Vial) 3 ml NEB NOW [facility]; Protocol Stop: 06/07/24 19:41 Last Admin: 06/07/24 19:58 Dose: 3 ml Documented By: AN Furosemide (Furosemide 40 Mg/4 Ml Vial) 40 mg IV ONE ONE Stop: 06/07/24 20:26 Last Admin: 06/07/24 20:34 Dose: 40 mg Documented By: MED Methylprednisolone (Methylprednisolone 125 Mg/2 Ml Vial) 60 mg IV NOW STA Stop: 06/07/24 19:41 Last Admin: 06/07/24 19:57 Dose: 60 mg Documented By: AN Morphine Sulfate (Morphine Sulfate 2 Mg/Ml Carp) 2 mg IV NOW [facility] Stop: 06/07/24 21:03 Last Admin: 06/07/24 21:26 Dose: Not Given Documented By: MED Discharge Plan Visit Data Chief Complaint: Shortness of Breath/Dyspnea Stated Complaint: BREATHING TROUBLE ED Provider: Lexi Leal Discharge Problem: Acute and chronic respiratory failure with hypoxia, Acute exacerbation of chronic obstructive pulmonary disease (COPD), Elevated brain natriuretic peptide (BNP) level Patient Disposition: Admitted As Inpatient Discharge Instructions Interventions: ED Discharge Assessment Last Done: 06/08/24 00:36
[2024-06-07] MEDS: FUROSEMIDE 40 MG/4 ML VIAL IV ONE (20:34)
[2024-06-07 20:37] LABS: INR 2.4 (0.9-1.1); Prothrombin Time 23.9 Seconds (9.0-12.0)
[2024-06-07 21:22] LABS: Adenovirus PCR Not Detected (NotDetected); Bordetella parapertussis PCR Not Detected (NotDetected); Bordetella pertussis PCR Not Detected (NotDetected); Chlamydia pneumoniae PCR Not Detected (NotDetected); Coronavirus 229E PCR Not Detected (NotDetected); Coronavirus CoV-2 (COVID19)PCR Not Detected (NotDetected); Coronavirus HKU1 PCR Not Detected (NotDetected); Coronavirus NL63 PCR Not Detected (NotDetected); Coronavirus OC43PCR Not Detected (NotDetected); Human Metapneumovirus PCR Not Detected (NotDetected); Influenza A PCR Not Detected (NotDetected); Influenza B PCR Not Detected (NotDetected); Mycoplasma pneumoniae PCR Not Detected (NotDetected); Parainfluenza Virus 1 PCR Not Detected (NotDetected); Parainfluenza Virus 2 PCR Not Detected (NotDetected); Parainfluenza Virus 3 PCR Not Detected (NotDetected); Parainfluenza Virus 4 PCR Not Detected (NotDetected); Respiratory Syncytial VirusPCR Not Detected (NotDetected); Rhinovirus/Enterovirus PCR Not Detected (NotDetected)
[2024-06-07] MEDS: MoRPHine SULFATE 2 MG/ML CARP IV STA (21:26)
--- NOTE | 2024-06-08 00:17 | XRay Report ---
Exam(s): XR CXR 1 VIEW EXAM: XR Chest, 1 View CLINICAL HISTORY: Shortness of breath. TECHNIQUE: Frontal view of the chest. COMPARISON: Chest radiograph 05/03/2024 FINDINGS: Lungs: Bilateral airspace opacities are present. Pleural space: Small bilateral pleural effusions. No pneumothorax. Heart: Upper limits of normal cardiac silhouette. Mediastinum: Unremarkable. Normal mediastinal contour. Bones/joints: There are degenerative changes of the spine. No acute fracture. IMPRESSION: 1. Bilateral airspace opacities may represent pulmonary edema and/or atypical infection. 2. Small bilateral pleural effusions. Electronically signed by: aRchel Mcgovern MD 06/08/24 00:16 AM
[2024-06-08] MEDS ORDERED: ACETAMINOPHEN 325 MG TAB PO PRN (00:35)
[2024-06-08] MEDS ORDERED: POLYETHYLENE (MIRALAX) 17 GM PACK PO PRN (00:35)
[2024-06-08] MEDS ORDERED: NITROGLYCERIN SL 0.4 MG/TAB TAB SL PRN (00:35)
--- OUTSIDE RECORDS SUMMARY | 2024-06-08 01:18 | External Medical Summary | Summary of Care ---
Author Name Unknown Organization [facility] Address [address] [address] Phone [phone] Care Team Providers Care Civil Design Specialist Name Role Phone Khoa Hui MD Primary Care Provider + Reason for Visit * Reason Onset Date Comments Medication Question 05/30/2024 Encounter Details Date Type Department Care Team (Late st Contact Info) Description 05/30/2024 Telephone Centralized Clinical Pharmacy Services, [facility] [address] [place] [address] [place] [address] Pharmacist1, [facility] [address] [facility] [place] [address] Medication Question Allergies Active Allergy Reactions Criticality Noted Date Comments Marlo Inhibitors Cough 02/23/2009 Valsartan Edema face/lips/tongue High 05/17/2012 Dog Dander Other (Please comment) High 06/11/2015 Congestion, SOB Influenza Vac Split Quad Other (Please comment) 03/15/2012 Sinus pressure, drainage after flu shot on 2 occasions Levofloxacin 10/07/2013 Itching; hives on trunk and lower extremities Nickel Rash 05/20/2008 documented as of this encounter (statuses as of 05/30/2024) Medications Aspirin EC 81 MG Oral Tablet Delayed Release Take 1 Tablet by mouth in the morning. 2 Active Azelastine HCl 0.1 % Nasal Solution (Astelin)Indicatio ns:Rhinitis, nonallergic Administer 1 [place] into nostril in the morning and 1 [place] before bedtime. 90 mL 3 3 Active Nitroglycerin 0.4 MG Sublingual Tablet Sublingual (Nitrostat)Indicat ions:CAD in [place] artery Place 1 Tablet under the tongue every 5 minutes as needed for Pain, Chest. 25 Tablet 3 4 Active Spironolactone 25 MG Oral Tablet (Aldactone)Indicat ions:HTN, goal below 130/80,Chronic diastolic heart failure (HCC),Localized edema TAKE 1 TABLET IN THE MORNING 90 Tablet 3 4 Active Warfarin Sodium 2.5 MG Oral Tablet (Coumadin)Indicati ons:Paroxysmal atrial fibrillation (HCC) TAKE 1 TABLET DAILY DIRECTED BY ANTICOAG CLINIC 90 Tablet 3 4 Active Furosemide 20 MG Oral Tablet (Lasix)Indications :HTN, goal below 130/80,Chronic diastolic heart failure (HCC),Localized edema Take 2 Tablets by mouth in the morning. In the morning.. 180 Tablet 2 4 Active ProAir HFA 108 (90 Base) MCG/ACT Inhalation Aerosol SolutionIndication s:COPD, group D, by GOLD 2017 classification ([facility]) Inhale 2 Puffs by mouth every 4 hours as needed for Cough, Shortness of Breath or Wheezing. 54 g 3 4 Active Sotalol HCl 80 MG Oral Tablet (Betapace)Indicati ons:Paroxysmal atrial fibrillation (HCC) TAKE 1 TABLET TWICE A DAY 180 Tablet 3 4 Active Albuterol Sulfate (2.5 MG/3ML) 0.083% Inhalation Nebulization Solution (Proventil) Inhale 1 Vial via nebulizer every 4 hours as needed for Wheezing. Or cough / tight feeling 300 mL 3 4 Active Breztri Aerosphere 160-9-4.8 MCG/ACT Inhalation Aerosol (Budeson-Glycopyrr ol-Formoterol)Alla cations:COPD, group D, by GOLD 2017 classification ([facility]) Inhale 2 Puffs by mouth in the morning and 2 Puffs before bedtime. 32.1 g 3 4 Active Breztri Aerosphere 160-9-4.8 MCG/ACT Inhalation Aerosol (Budeson-Glycopyrr ol-Formoterol)Alla cations:COPD, group D, by GOLD 2017 classification ([facility]) Inhale 2 Puffs by mouth 2 times a day. 10.7 g 2 4 Active Isosorbide Mononitrate ER 30 MG Oral Tablet Extended Release 24 Hour (Imdur)Indications :CAD in [place] artery TAKE 1 TABLET IN THE MORNING 90 Tablet 3 4 Active documented as of this encounter (statuses as of 05/30/2024) Active Problems Problem Noted Date Diagnosed Date Chronic respiratory failure with hypoxia 024 COPD, group D, by GOLD 2017 classification 05/16 Overview: Per COPD GOLD Classification Bladder mass 01/05/2022 Ureteral lesion, [place], right 01/05/2022 Chronic diastolic heart failure 07/01/2021 Pulmonary hypertension 07/01/2021 Lung nodule 07/01/2021 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 Change to toprol. Start xarelto. 2007? converted with IV diltiazem Routine general medical exam ination at a health care facility 09/05/2013 Overview (02/22/2024): 02/26 TTE [facility] normal EF Grade [...] as of this encounter (statuses as of 05/30/2024) Resolved Problems Problem Noted Date Diagnosed Date [...] as of this encounter (statuses as of 05/30/2024) Immunizations Name Administration Dates Next Due COVID-19 [...] encounter Miscellaneous Notes * Telephone Encounter - Kristan Desai RP - 05/30/2024 1:18 PM EST Returned call to Jo Ann. Advised to take 2.5 mg today (instead of 1.25 mg). INR to be rechecked 06/03 as scheduled. Of note, patient is soon to be transitioned to hospice, and Jo Ann was made aware that as long as patient is taking warfarin, then routine INR monitoring is recommended. Kristan Desai, PharmD, BCACP Clinical Pharmacist Medication Therapy Disease Management 05/30/2024, 1:20 PM * Telephone Encounter - Tiana Copeland cloth presser - 05/30/2024 11:40 AM EST Caller's name: Jo Ann Preferred call back number(OFFICE NUMBER FOR ): [phone] Reason for call: [facility]atient went to [facility] on 05[facility]. INR was drawn however patient was not given her Warfarin, nor did she take it that night once out. Would like a to know what she is to do regarding dosage. Daughter would like [facility] to call her instead of patient. Tiana Copeland Supervisor Sterile Processing Centralized Clinical Pharmacy Services [address] [place] [address] [address] [place] [address] [id number] 05/30/2024,11:42 AM documented in this encounter Plan of Treatment Upcoming Encounters Date Type Department Care Team (Late st Contact Info) Description 06/03/2024 5:40 PM EST Anticoagulation Pharmacy, [facility] [address] [facility] [place] [address] Pharmacist1, [facility] [address] [facility] [place] [address] 08/30/2024 12:20 PM EDT Office Visit [facility] [address] [place] [address] Khoa Hui MD [address] [facility] [place] [address] 03/18/2025 1:40 PM EDT Office Visit [facility] [address] [place] [address] Khoa Hui MD [facility] [place] [address] Health Maintenance Due Date Last Done Comments Alpha-1 Antitrypsin 1961 Pneumococcal Vaccine: 50+ Years (2 of 2 - PCV) 05/13/2010 [...] Documents on File Type Date Recorded Patient Supervisor Adult Education Expl anation Power of Commercial Pilot 03/20/2024 signed on 02/02/2022 * Full Code [...] Advance Directives occurred with: Patient Care Teams Civil Design Specialist Relationship Specialty Start Date End Date Khoa Hui MD [address] [place] [address] PCP - General Family Medicine 05/19/14 documented as of this encounter
--- OUTSIDE RECORDS SUMMARY | 2024-06-08 01:18 | External Medical Summary | Summary of Care ---
Author Name Unknown Organization [facility] Address [address] [place] [facility] [place] [address] Phone [phone] Care Team Providers Care Spool Carrier Name Role Phone Khoa Hui MD Primary Care Provider + Reason for Visit * Reason Comments Dosage Adjustment Via Phone (anticoag Cl inic) Encounter Details Date Type Department Care Team (Latest Contact Info) Description 06/03/2024 5:40 PM EST Anticoagulation Pharmacy, [facility] [address] [place] [address] Pharmacist1, [facility] [address] [facility] [place] [address] Paroxysmal atrial fibrillation (HCC)* Allergies Active Allergy [...] as of this encounter (statuses as of 06/03/2024) Medications Aspirin EC 81 MG Oral Tablet Delayed Release Take 1 Tablet by mouth in the morning. 2 Active Azelastine HCl 0.1 % Nasal Solution (Astelin)Indicatio ns:Rhinitis, nonallergic Administer 1 [place] into nostril in the morning and 1 [place] before bedtime. 90 mL 3 3 Active Nitroglycerin 0.4 MG Sublingual Tablet Sublingual (Nitrostat)Indicat ions:CAD in [place] artery Place 1 Tablet under the tongue [...] D, by GOLD 2017 classification ([facility]) Inhale 2 Puffs by mouth every [...] D, by GOLD 2017 classification ([facility]) Inhale 2 Puffs by mouth in the morning and 2 Puffs before bedtime. 32.1 g 3 4 Active Breztri Aerosphere 160-9-4.8 MCG/ACT Inhalation Aerosol (Budeson-Glycopyrr ol-Formoterol)Alla cations:COPD, group D, by GOLD 2017 classification ([facility]) Inhale 2 Puffs by mouth 2 times a day. 10.7 g 2 4 Active Isosorbide Mononitrate ER 30 MG Oral Tablet Extended Release 24 Hour (Imdur)Indications :CAD in [place] artery TAKE 1 TABLET IN THE MORNING 90 Tablet 3 4 Active oxyCODONE HCl 5 MG Oral Tablet (Oxy IR) Take 1 Tablet by mouth every 8 hours as needed for Pain, Moderate. 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 Change to toprol. Start xarelto. 2007? converted with IV diltiazem Routine general medical exam ination at a health care facility 09/05/2013 Overview (02/22/2024): 02/26 TTE [facility] normal EF Grade II [place] [...] as of this encounter (statuses as of 06/03/2024) Resolved Problems Problem Noted Date Diagnosed Date [...] as of this encounter (statuses as of 06/03/2024) Immunizations Name Administration Dates Next Due COVID-19 [...] No 02/03/2023 Does the household have a [place] service unit[place] source of income? (Household - for ages [...] Progress Notes * Howard Sheth RPh - 06/03/2024 1:16 PM EST Images from the original note were not included. Patient Phone Numbers Contacts Contact Date/Time Type Contact Phone/Fax 06/03/2024 12:24 PM EST Phone (Incoming) Ana Rankin (Other) [phone] Description Given patients aversion to self injections and lower predicted risk Per Cardiology (see 01/13/22 note) okay with NO lovenox bridge. INR Result As of 06/03/2024 INR goal: 2.0-3.0 INR used for dosin.3 (06/03/2024) Patient Findings Negatives: Signs/symptoms of thrombosis, Signs/symptoms of bleeding, Change in health, Change in alcohol use, Change in activity, Upcoming invasive procedure, Missed doses, Extra doses, Change in medications, Change in diet/appetite, Bruising Warfarin Plan As of 06/03/2024 Full warfarin instructions: 06/03: 1.25 mg; Otherwise 2.5 mg every Mon, Wed, Fri; 1.25 mg all otherdays Next INR check: 06/17/2024 Repeat PT/INR in 2 week(s) with home coaguchek Weekly dose: decreased I spent a total of 10-19 minutes (exact time 17 mins) on the date of service in preparation, delivery, and documentation of the care provided to Lila Rolle excluding any time spent in the performanceof separately billed services or time spent by another provider/QHP. Howard Anderson RPh, CACP, CDE Clinical Pharmacist Medication Therapy Management [facility] 06/03/2024, 1:24 PM * Chuyita Bello CPhT - 06/03/2024 12:24 PM EST Caller's name: Reanna Darren call back number(OFFICE NUMBER FOR ): [phone] fax#[phone] Reason for call: nursing facility, [facility] , calling with INR results. Result is 3.3 which was drawn on 06/03/24. Patient is being discharged. Thank you, Chuyita Bello Engineering Scientist Centralized Clinical Pharmacy Services 06/03/2024,12:24 PM documented in this encounter Plan of Treatment Upcoming Encounters Date Type Department Care Team (Late st Contact Info) Description 06/17/2024 5:30 PM EST Anticoagulation Pharmacy, [facility] [place] [address] [place] [address] Pharmacist1, [facility] [address] [facility] [place] [address] 08/30/2024 12:20 PM EDT Office Visit Family [facility] [address] [place] [address] Khoa Hui MD [address] [place] [address] 03/18/2025 1:40 PM EDT Office Visit Family [facility] [address] [place] [address] Khoa Hui MD [address] [place] [address] Health Maintenance Due Date Last Done Comments [...] Date/Time Associated Diagnosis Comments OUTSIDE LAB-PT/INR Routine 06/03/2024 documented in this encounter Results * OUTSIDE LAB-PT/INR (06/03/2024) INR-OUTSIDE LAB 3.3 us History Per Patient LABORATORY Final Result documented in this encounter Visit Diagnoses Diagnosis Paroxysmal atrial fibrillation (HCC)- Primary Atrial fibrillation documented in this encounter Advance Directives Documents on File Type Date Recorded Patient Process Development Associate Expl anation Power of Cost Estimating Engineer 03/20/2024 signed on 02/02/2022 * Full [...] Advance Directives occurred with: Patient Care Teams Spool Carrier Relationship Specialty Start Date End Date Khoa Hui MD [address] [place] [address] PCP - General Family Medicine 05/19/14 documented as of this encounter
[2024-06-08] MEDS: DOXYCYCLINE HYCLATE 100 MG CAP PO SCH (03:21)
--- NOTE | 2024-06-08 05:28 | History & Physical Report ---
Date of Service June 07, 2024 Assessment & Plan (1) Acute and chronic respiratory failure with hypoxia: Plan: 79-year-old female with past medical history significant for hyperlipidemia, prediabetes, chronic respiratory failure with hypoxia on 3 to 4 L oxygen, COPD, history of lung nodule, paroxysmal atrial fibrillation, chronic diastolic CHF, pulmonary hypertension, hypertension, venous insufficiency, CAD, status post drug-eluting stent to the right coronary artery, QT prolongation , history of bladder mass, history of smoking, comes because of shortness of breath with increasing oxygen requirements. Patient's was feeling short of breath since evening. Has chronic cough. Denies any fevers. No runny nose or sore throat. No headache. Denies any chest pain. No nausea. No abdominal pain. Somewhat constipated. Denies any blood in the stools. Micturating okay. Currently on high flow oxygen saturating okay. Patient was in the hospital in first week of May 2024 with acute COPD exacerbation. Patient followed with pulmonary on 05/20/2024. Pulmonary seems to discussed about the left upper lobe findings and PET scan findings and patient does not want a diagnostic workup or oncology evaluation or radiation therapy per pulmonary notes. Acute on chronic respiratory failure with hypoxia Acute COPD exacerbation Acute diastolic CHF Patient chronically on 3 to 4 L oxygen at home Requiring high flow Chest x-ray pulmonary congestion versus atypical infection Diminished breath sounds IV Solu-Medrol 40 mg 3 times daily, nebs [id number] and as needed IV Lasix 40 mg daily and continue spironolactone Will follow echo Empiric antibiotics IV Rocephin and doxycycline Will follow procalcitonin Pulmonary and cardiology consult in a.m. Close monitor History of CAD status post drug-eluting stent to right coronary artery On aspirin, Imdur and Coumadin History of paroxysmal atrial fibrillation On sotalol and Coumadin and INR 2.4 Will follow PT/INR Chronic lower extremity edema On diuretics Left lower extremity wound From hematoma Follows with wound care Wound care Left lung nodule Refused workup Follow History of prediabetes HbA1c 6.1 on 05/04/2024 DVT prophylaxis On Coumadin Will follow PT/INR History of Present Illness Chief Complaint: Shortness of breath Primary Care Provider: Khoa Hui MD 79-year-old female with past medical history significant for hyperlipidemia, prediabetes, chronic respiratory failure with hypoxia on 3 to 4 L oxygen, COPD, history of lung nodule, paroxysmal atrial fibrillation, chronic diastolic CHF, pulmonary hypertension, hypertension, venous insufficiency, CAD, status post drug-eluting stent to the right coronary artery, QT prolongation , history of bladder mass, history of smoking, comes because of shortness of breath with increasing oxygen requirements. Patient's was feeling short of breath since evening. Has chronic cough. Denies any fevers. No runny nose or sore throat. No headache. Denies any chest pain. No nausea. No abdominal pain. Somewhat constipated. Denies any blood in the stools. Micturating okay. Currently on high flow oxygen saturating okay. Patient was in the hospital in first week of May 2024 with acute COPD exacerbation. Patient followed with pulmonary on 05/20/2024. Pulmonary seems to discussed about the left upper lobe findings and PET scan findings and patient does not want a diagnostic workup or oncology evaluation or radiation therapy per pulmonary notes. Past medical history. As mentioned above. Past surgical history. Cardiac cath. Cystoscopy. Cystoscopy arthroscopy with fulguration of small bladder tumor. Defibrillation/cardioversion. Hysteroscopy with biopsy. Ligation of oviducts. Appendectomy. Social history. . Quit smoking 02/06/2024. Smoked 1 pack a day for 64 years. Alcohol occasional. No drug use. Family history. Sister had breast cancer. Father had colon cancer. Diabetes. Mother had a gastric hemorrhage. Brother had heart disorder. Diabetes. Allergies Allergy/AdvReac Type Severity Reaction Status Date / Time dog dander Allergy Severe congestion, Verified 05/17/24 14:11 SOB valsartan Allergy Severe Edema Verified 05/17/24 14:11 face/lips/tongue. levofloxacin [From Levaquin] Allergy Intermediate ITCHY Verified 05/17/24 14:11 HIVES ON TRUNK AND LEGS nickel Allergy Mild Rash. Verified 05/17/24 14:11 NAI Inhibitors AdvReac Intermediate Cough. Verified 05/17/24 14:11 influenza virus vaccine ts AdvReac Intermediate SINUS Verified 05/17/24 14:11 [id number] (36 mos,up) PRESSURE/DRAINAGE [From Fluarix] Home Medications Medication Instructions Recorded Confirmed Type albuterol sulfate 2.5 mg/3 mL 2.5 mg continuous nebulization Q4H 06/07/24 06/07/24 History (0.083 %) solution for nebulization PRN sob albuterol sulfate 90 mcg/actuation 2 puff inhalation Q4H PRN 06/07/24 06/07/24 History aerosol inhaler Shortness Of Breath Or Wheezing aspirin 81 mg tablet,delayed 81 mg PO DAILY 06/07/24 06/07/24 History release azelastine 137 mcg (0.1 %) nasal 1 spray intranasal BID 06/07/24 06/07/24 History spray budesonide 160 mcg-glycopyr 9 2 inh inhalation BID 06/07/24 06/07/24 History mcg-formot 4.8 mcg/actuation HFA inhaler (Breztri Aerosphere) furosemide 20 mg tablet 40 mg PO DAILY 06/07/24 06/07/24 History isosorbide mononitrate 30 mg 30 mg PO DAILY 06/07/24 06/07/24 History tablet,extended release 24 hr nitroglycerin 0.4 mg sublingual 0.4 mg sublingual UD PRN Chest Pain 06/07/24 06/07/24 History tablet oxycodone 5 mg tablet 5 mg PO TID PRN Pain 06/07/24 06/07/24 History sotalol 80 mg tablet 80 mg PO BID 06/07/24 06/07/24 History spironolactone 25 mg tablet 25 mg PO DAILY 06/07/24 06/07/24 History warfarin 2.5 mg tablet 2.5 mg PO UD 06/07/24 06/07/24 History Past Med/Surg History Problem List (Updated 06/07/24 @ 20:39 by Lexi Leal, DO) Elevated brain natriuretic peptide (BNP) level (Acute) Acute exacerbation of chronic obstructive pulmonary disease (COPD) (Acute) Acute and chronic respiratory failure with hypoxia (Acute) Metastatic cancer (Acute) Insufficiency fracture (Acute) Lower back pain (Acute) Anticoagulated on Coumadin (Acute) Acute upper back pain (Acute) Declining performance status Oxygen dependent Dyspnea on minimal exertion Palliative care by specialist Advanced care planning/counseling discussion Weakness generalized Dyspnea and respiratory abnormalities Hematoma of left lower extremity (Acute) Cor pulmonale Pulmonary hypertension Left upper lobe pulmonary nodule Anticoagulated on Coumadin (Acute) Acute exacerbation of chronic obstructive pulmonary disease (COPD) (Acute) COPD (chronic obstructive pulmonary disease) (Chronic) Prediabetes (Chronic) Hyperlipidemia (Chronic) Medical History (Updated 06/07/24 @ 20:39 by Lexi Leal, DO) Chronic diastolic (congestive) heart failure Tobacco abuse CAD (coronary artery disease), [place] coronary artery Hypertension Emphysema of lung Surgical History S/P right coronary artery (RCA) stent placement H/O: hysterectomy S/P appendectomy Family History Other Colon cancer Social History Smoking Status: Former smoker Tobacco Type: Cigarettes Cigarettes Per Day: smokes occasionally, some days doesn't smoke, other days smokes 3-5 cigs; Second Hand Exposure: No; Do You Dip or Chew Tobacco: No; Hx Alcohol Use: Yes Alcohol type: wine Alcohol Intake Frequency Comment: 1 glass of wine 3-5 days per week Hx Substance Use: No Preferred Language: Spanish Communication Ability: Effective Visual Impairment: Limited Hearing Ability: Normal Contact Worker Required: No Beliefs That Will Affect Care: None marital status: / Current Living Situation: Alone How many Children do You have: 2 Feels Safe at Home: Yes Diet: regular caffeine: Yes during the past year weight has: decreased > 10 lbs Assistive Devices: Oxygen - Continuous Review of Systems Review of Systems: All systems reviewed & are unremarkable except as noted in HPI & below Physical Exam Physical Exam: General- Not in acute distress Head- atraumatic Eyes- PERRL. ENT- oropharynx clear Neck- supple, no JVD. Lungs- B/L diminished breath sounds, No wheezing or crackles. Heart- regular rhythm; no murmur, no gallop. Abdomen- normal bowel sounds, soft, nontender, no distension Extremities- b/l lower extremity edema present. wound seen on left leg posterior aspect in calf region- no erythema or drainage seen Neuro- alert, oriented PERRL, no facial palsy; no dysarthria; moves extremities Results & Data Results & Data Vital Signs (Past 12 Hours) Vital Signs Temp Pulse Pulse Resp BP BP Pulse Ox 06/07/24 20:22 74 20 150/106 H 95 06/07/24 20:00 73 26 H 95 06/07/24 19:47 75 06/07/24 19:36 88 L 06/07/24 19:36 36.7 C 73 26 H 170/89 H 88 L 06/07/24 19:36 O2 Del Method O2 Flow Rate FiO2 06/07/24 20:22 High Flow Nasal Cannula 06/07/24 20:00 High Flow Nasal Cannula 30 40 06/07/24 19:47 06/07/24 19:36 Room Air, Nasal Cannula 06/07/24 19:36 Room Air 06/07/24 19:36 Nasal Cannula 4 Diagnostic Findings Laboratory Results WBC 11.72 K/ul (4.8-10.8) H 06/07/24 19:45 RBC 4.35 M/uL (4.20-5.40) 06/07/24 19:45 Hgb 12.9 g/dl (12.0-16.0) 06/07/24 19:45 Hct 40.6 % (37.0-47.0) 06/07/24 19:45 MCV 93.3 fL (80.0-100.0) 06/07/24 19:45 MCH 29.7 pg (25.0-34.0) 06/07/24 19:45 MCHC 31.8 g/dL (32.0-36.0) L 06/07/24 19:45 RDW Std Deviation 44.2 fL (36.4-46.3) 06/07/24 19:45 RDW Coeff of Anais 13.0 % (11.5-14.5) 06/07/24 19:45 Plt Count 320 K/uL (130-400) 06/07/24 19:45 MPV 10.1 fL (9.4-12.4) 06/07/24 19:45 Immature Gran % (Auto) 0.5 % 06/07/24 19:45 Neut % (Auto) 79.1 % 06/07/24 19:45 Lymph % (Auto) 9.8 % 06/07/24 19:45 Lares % (Auto) 9.9 % 06/07/24 19:45 Eos % (Auto) 0.4 % 06/07/24 19:45 Baso % (Auto) 0.3 % 06/07/24 19:45 Neut # (Auto) 9.27 K/uL (1.40-6.50) H 06/07/24 19:45 Lymph # (Auto) 1.15 K/uL (1.20-3.40) L 06/07/24 19:45 [place] # (Auto) 1.16 K/uL (0.11-0.59) H 06/07/24 19:45 Eos # (Auto) 0.05 K/uL (0.00-0.50) 06/07/24 19:45 Baso # (Auto) 0.03 K/uL (0.00-0.20) 06/07/24 19:45 Immature Gran # (Auto) 0.06 K/uL (0.01-0.20) 06/07/24 19:45 PT 23.9 Seconds (9.0-12.0) H 06/07/24 19:45 INR 2.4 (0.9-1.1) H 06/07/24 19:45 Sodium 134 mmol/L (136-145) L 06/07/24 19:45 Potassium 4.3 mmol/L (3.5-5.1) 06/07/24 19:45 Chloride 95 mmol/L (98-107) L 06/07/24 19:45 Carbon Dioxide 33 mmol/L (21-32) H 06/07/24 19:45 Anion Gap 6 (3-11) 06/07/24 19:45 BUN 15 mg/dl (6-23) 06/07/24 19:45 Creatinine 0.61 mg/dl (0.6-1.2) 06/07/24 19:45 Est Cr Clr Drug Dosing 67.7 ml/min 06/07/24 19:45 eGFR 89.76 06/07/24 19:45 BUN/Creatinine Ratio 24.6 (10-20) H 06/07/24 19:45 Glucose 114 mg/dl (70-99(Fasting)) H 06/07/24 19:45 Calcium 9.4 mg/dl (8.6-10.3) 06/07/24 19:45 Magnesium 1.8 mg/dl (1.7-2.4) 06/07/24 19:45 Total Bilirubin 0.8 mg/dl (0.2-1.0) 06/07/24 19:45 AST 16 U/L (13-39) 06/07/24 19:45 ALT 18 U/L (7-52) 06/07/24 19:45 Alkaline Phosphatase 110 U/L (34-104) H 06/07/24 19:45 Troponin I High Sens 16.0 pg/ml (0-14) H 06/07/24 19:45 B-Natriuretic Peptide 448 pg/ml (0-100) H 06/07/24 19:45 Total Protein 7.2 gm/dl (6.0-8.3) 06/07/24 19:45 Albumin 3.6 gm/dl (3.4-5.0) 06/07/24 19:45 Globulin 3.6 gm/dl (2.5-4.0) 06/07/24 19:45 Albumin/Globulin Ratio 1.0 (0.9-2) 06/07/24 19:45 Lipase 5 U/L (11-82) L 06/07/24 19:45 Adenovirus (PCR) Not Detected (NotDetected) 06/07/24 19:45 B. pertussis DNA (PCR) Not Detected (NotDetected) 06/07/24 19:45 B.parapertussis DNA PCR Not Detected (NotDetected) 06/07/24 19:45 C. pneumoniae DNA (PCR) Not Detected (NotDetected) 06/07/24 19:45 Coronavirus OC43 (PCR) Not Detected (NotDetected) 06/07/24 19:45 Coronavirus HKU1 (PCR) Not Detected (NotDetected) 06/07/24 19:45 Coronavirus 229E (PCR) Not Detected (NotDetected) 06/07/24 19:45 SARS-CoV-2 (PCR) Not Detected (NotDetected) 06/07/24 19:45 Coronavirus NL63 (PCR) Not Detected (NotDetected) 06/07/24 19:45 Human Metapneumovir PCR Not Detected (NotDetected) 06/07/24 19:45 Influenza Type A (PCR) Not Detected (NotDetected) 06/07/24 19:45 Influenza Type B (PCR) Not Detected (NotDetected) 06/07/24 19:45 M. pneumoniae (PCR) Not Detected (NotDetected) 06/07/24 19:45 Parainfluenza 1 (PCR) Not Detected (NotDetected) 06/07/24 19:45 Parainfluenza 2 (PCR) Not Detected (NotDetected) 06/07/24 19:45 Parainfluenza 3 (PCR) Not Detected (NotDetected) 06/07/24 19:45 Parainfluenza 4 (PCR) Not Detected (NotDetected) 06/07/24 19:45 RSV (PCR) Not Detected (NotDetected) 06/07/24 19:45 Entero/Rhino (PCR) Not Detected (NotDetected) 06/07/24 19:45 Impressions Chest X-Ray 06/07/24 19:41 Exam(s): XR CXR 1 VIEW EXAM: XR Chest, 1 View CLINICAL HISTORY: Shortness of breath. TECHNIQUE: Frontal view of the chest. COMPARISON: Chest radiograph 05/03/2024 FINDINGS: Lungs: Bilateral airspace opacities are present. Pleural space: Small bilateral pleural effusions. No pneumothorax. Heart: Upper limits of normal cardiac silhouette. Mediastinum: Unremarkable. Normal mediastinal contour. Bones/joints: There are degenerative changes of the spine. No acute fracture. IMPRESSION: 1. Bilateral airspace opacities may represent pulmonary edema and/or atypical infection. 2. Small bilateral pleural effusions. Electronically signed by: Rachel Mcgovern MD 06/08/24 00:16 AM ECG Additional Comments: ECG normal sinus rhythm rate of 61. Incomplete right bundle branch block. No significant change was found. Code Status & VTE Plan VTE Prophylaxis Plan VTE Prophylaxis will be ordered: Yes
[2024-06-08 05:50] LABS: Hematocrit (blood only) 37.6 % (37.0-47.0); Hemoglobin 12.3 g/dl (12.0-16.0); Mean Corpuscular Hemoglobin 29.9 pg (25.0-34.0); Mean Corpuscular Hgb Conc 32.7 g/dL (32.0-36.0); Mean Corpuscular Volume 91.3 fL (80.0-100.0); Mean Platelet Volume 10.1 fL (9.4-12.4); Platelet Count 299 K/uL (130-400); RDW Standard Deviation 43.3 fL (36.4-46.3); Red Blood Count 4.12 M/uL (4.20-5.40)
[2024-06-08 06:05] LABS: Basophils # (auto) 0.02 K/uL (0.00-0.20); Basophils % (auto) 0.2 %; Immature Granulocytes # (auto) 0.07 K/uL (0.01-0.20); Immature Granulocytes % (auto) 0.6 %; Lymphocytes # (auto) 0.69 K/uL (1.20-3.40); Lymphocytes % (auto) 6.2 %; Monocytes # (auto) 0.21 K/uL (0.11-0.59); Monocytes % (auto) 1.9 %; Neutrophils # (auto) 10.11 K/uL (1.40-6.50); Neutrophils % (auto) 91.1 %
[2024-06-08 06:06] LABS: Calcium 8.9 mg/dl (8.6-10.3); Creatinine Clr Calc Pharmacy 64.5 ml/min; Magnesium 1.8 mg/dl (1.7-2.4); Potassium 4.2 mmol/L (3.5-5.1)
[2024-06-08 06:12] LABS: Troponin I High Sensitivity 16.3 pg/ml (0-14)
[2024-06-08 06:14] LABS: INR 2.1 (0.9-1.1); Prothrombin Time 21.5 Seconds (9.0-12.0)
[2024-06-08] MEDS: cefTRIAXone SODIUM 2,000 MG/50 ML BAG IV SCH (06:46)
[2024-06-08] MEDS: ALBUT/IPRATROP 3MG/0.5MG NEB 3 ML VIAL NEB SCH (07:34)
[2024-06-08] MEDS ORDERED: methylPREDNISolone 125 MG/2 ML VIAL IV SCH (09:00)
--- NOTE | 2024-06-08 09:02 | Cardiology Consultation ---
Date of Consultation June 08, 2024 Assessment & Plan (1) Acute exacerbation of chronic obstructive pulmonary disease (COPD): (2) Acute and chronic respiratory failure with hypoxia: (3) (HFpEF) heart failure with preserved ejection fraction: Continue outpatient cardiac medications including aspirin, Imdur, sotalol, spironolactone, Coumadin. Agree with addition of furosemide 40 mg IV daily to start as tolerated from a blood pressure and renal function/electrolyte standpoint. Patient is to receive antibiotics, inhaled bronchodilators and IV corticosteroids. Per review of outpatient pulmonary note, there had been discussion with regards to movement toward palliative care as patient had declin ed further workup/treatment for her suspected lung cancer. History of Present Illness Attending Physician: Da Villalba MD History of Present Illness Lila Puente is an 79 year old female seen in cardiology consultation per the request of Dr Morales for the evaluation of congestive heart failure. Patient somewhat of a poor historian. States that she is on supplemental oxygen at 3 L/min on a chronic basis at home with recent increasing oxygen requirement of 4 L/min. Endorses recent worsening shortness of breath. No acute distress during my assessment. Telemetry revealing sinus rhythm in the 80s. Past Cardiac History: 1. Paroxysmal atrial fibrillation treated with rhythm control strategy and anticoagulation (sotalol and Coumadin) 2. Coronary heart disease status post drug-eluting stent to the right coronary artery Oct, 2018 3. Hypertension 4. Dyslipidemia 5. COPD with history of tobacco use ,quit cigarette smoking in February 2024 previously smoked 1 pack/day for 64 years Allergies Allergy/AdvReac Type Severity Reaction Status Date / Time dog dander Allergy Severe congestion, Verified 05/17/24 14:11 SOB valsartan Allergy Severe Edema Verified 05/17/24 14:11 face/lips/tongue. levofloxacin [From Levaquin] Allergy Intermediate ITCHY Verified 05/17/24 14:11 HIVES ON TRUNK AND LEGS nickel Allergy Mild Rash. Verified 05/17/24 14:11 NAI Inhibitors AdvReac Intermediate Cough. Verified 05/17/24 14:11 influenza virus vaccine ts AdvReac Intermediate SINUS Verified 05/17/24 14:11 [id number] (36 mos,up) PRESSURE/DRAINAGE [From Fluarix] Home Medications Medication Instructions Recorded Confirmed Type albuterol sulfate 2.5 mg/3 mL 2.5 mg continuous nebulization Q4H 06/07/24 06/07/24 History (0.083 %) solution for nebulization PRN sob albuterol sulfate 90 mcg/actuation 2 puff inhalation Q4H PRN 06/07/24 06/07/24 History aerosol inhaler Shortness Of Breath Or Wheezing aspirin 81 mg tablet,delayed 81 mg PO DAILY 06/07/24 06/07/24 History release azelastine 137 mcg (0.1 %) nasal 1 spray intranasal BID 06/07/24 06/07/24 History spray budesonide 160 mcg-glycopyr 9 2 inh inhalation BID 06/07/24 06/07/24 History mcg-formot 4.8 mcg/actuation HFA inhaler (Breztri Aerosphere) furosemide 20 mg tablet 40 mg PO DAILY 06/07/24 06/07/24 History isosorbide mononitrate 30 mg 30 mg PO DAILY 06/07/24 06/07/24 History tablet,extended release 24 hr nitroglycerin 0.4 mg sublingual 0.4 mg sublingual UD PRN Chest Pain 06/07/24 0 06/07/24 History tablet oxycodone 5 mg tablet 5 mg PO TID PRN Pain 06/07/24 06/07/24 History sotalol 80 mg tablet 80 mg PO BID 06/07/24 06/07/24 History spironolactone 25 mg tablet 25 mg PO DAILY 06/07/24 06/07/24 History warfarin 2.5 mg tablet 2.5 mg PO UD 06/07/24 06/07/24 History Patient History Medical History Chronic diastolic (congestive) heart failure Tobacco abuse CAD (coronary artery disease), [place] coronary artery Hypertension Emphysema of lung Surgical History S/P right coronary artery (RCA) stent placement H/O: hysterectomy S/P appendectomy Family History Other Colon cancer Social History Smoking Status: Former smoker Tobacco Type: Cigarettes Cigarettes Per Day: smokes occasionally, some days doesn't smoke, other days smokes 3-5 cigs; Second Hand Exposure: No; Do You Dip or Chew Tobacco: No; Hx Alcohol Use: Yes Alcohol type: wine Alcohol Intake Frequency Comment: 1 glass of wine 3-5 days per week Hx Substance Use: No Preferred Language: Canadian Communication Ability: Effective Visual Impairment: Limited Hearing Ability: Normal Functional Manager Required: No Beliefs That Will Affect Care: None marital status: / Current Living Situation: Alone How many Children do You have: 2 Feels Safe at Home: Yes Diet: regular caffeine: Yes during the past year weight has: decreased > 10 lbs Assistive Devices: Oxygen - Continuous Review of Systems Review of Systems: All systems reviewed & are unremarkable except as noted in HPI & below Physical Exam Physical Exam: General: Cachectic in appearance, chronically ill in appearance Eyes: conjunctiva are pink and non-injected, sclera clear Neck: normal jugular venous pulse, no hepatojugular reflux Chest: normal shape and normal respiratory effort Lungs:Mildly decreased breath sounds at the bases Cardiac Exam: - regular heart sounds, no murmurs, rubs, or gallops, no jugular venous distention Abdomen: abdomen soft, non-tender, no abnormal masses and no hepatosplenomegaly Musculoskeletal: no gait disturbance, no weakness Extremities: Trace to 1+ bilateral lower extremity edema Neuro:awake, conversant, follows commands, no focal motor deficits Results & Data Vital Signs (Past 12 Hours) Vital Signs Pulse Pulse Resp BP Pulse Ox Pulse Ox O2 Del Method 06/08/24 07:36 70 24 96 High Flow Nasal Cannula 06/08/24 06:57 70 06/08/24 05:00 66 18 149/87 H 97 High Flow Nasal Cannula 06/08/24 03:22 73 21 97 High Flow Nasal Cannula 06/08/24 02:45 77 16 141/75 H 97 High Flow Nasal Cannula 06/08/24 02:45 96 06/08/24 00:43 79 143/70 H 98 High Flow Nasal Cannula 06/08/24 00:25 70 23 152/83 H 98 High Flow Nasal Cannula 06/07/24 23:34 68 06/07/24 23:01 78 18 150/82 H 99 High Flow Nasal Cannula 06/07/24 22:41 69 22 94 High Flow Nasal Cannula O2 Del Method O2 Flow Rate FiO2 06/08/24 07:36 30 40 06/08/24 06:57 06/08/24 05:00 30 06/08/24 03:22 30 40 06/08/24 02:45 30 06/08/24 02:45 High Flow Nasal Cannula 06/08/24 00:43 30 06/08/24 00:25 30 06/07/24 23:34 06/07/24 23:01 30 06/07/24 22:41 30 40 Laboratory Results Cardiac Enzymes 06/07/24 06/08/24 Range/Units 19:45 05:30 AST 16 (13-39) U/L Troponin I High Sens 16.0 H 16.3 H (0-14) pg/ml B-Natriuretic Peptide 448 H (0-100) pg/ml Coagulation 06/07/24 06/08/24 Range/Units 19:45 05:30 PT 23.9 H 21.5 H (9.0-12.0) Seconds B-Natriuretic Peptide 448 H (0-100) pg/ml INR 2.1 CBC 06/07/24 06/08/24 Range/Units 19:45 05:30 WBC 11.72 H 11.10 H (4.8-10.8) K/ul RBC 4.35 4.12 L (4.20-5.40) M/uL Hgb 12.9 12.3 (12.0-16.0) g/dl Hct 40.6 37.6 (37.0-47.0) % Plt Count 320 299 (130-400) K/uL Neut # (Auto) 9.27 H 10.11 H (1.40-6.50) K/uL Lymph # (Auto) 1.15 L 0.69 L (1.20-3.40) K/uL [place] # (Auto) 1.16 H 0.21 (0.11-0.59) K/uL Eos # (Auto) 0.05 0.00 (0.00-0.50) K/uL Baso # (Auto) 0.03 0.02 (0.00-0.20) K/uL Comprehensive Metabolic Panel 06/07/24 06/08/24 Range/Units 19:45 05:30 Sodium 134 L 135 L (136-145) mmol/L Potassium 4.3 4.2 (3.5-5.1) mmol/L Chloride 95 L 93 L (98-107) mmol/L Carbon Dioxide 33 H 34 H (21-32) mmol/L BUN 15 16 (6-23) mg/dl Creatinine 0.61 0.64 (0.6-1.2) mg/dl Glucose 114 H 145 H (70-99(Fasting)) mg/dl Calcium 9.4 8.9 (8.6-10.3) mg/dl AST 16 (13-39) U/L ALT 18 (7-52) U/L Alkaline Phosphatase 110 H (34-104) U/L Total Protein 7.2 (6.0-8.3) gm/dl Albumin 3.6 (3.4-5.0) gm/dl Viral respiratory panel THROAT: No sore throat, difficulty swallowing, or hoarseness. BNP mildly elevated at 448 PG per mL Intake and Output 06/07/24 06/08/24 06/08/24 22:59 06:59 14:59 Intake Total 50 / 50 Balance 50 / 50 Intake: IV 50 / 50 cefTRIAXone SODIUM 2,000 mg In 50 / 50 50 ml @ 100 mls/hr IV Q24H [facility] Rx#:[id number] Other: Weight 64.9 kg 64.9 kg Weight Measurement Method Built in [facility] Built in [facility] Diagnostic Findings Chest x-ray performed 06/08/24: Radiology report describes pulmonary edema versus atypical infection, small bilateral pleural effusions EKG performed on 06/07/24 at 1937 and interpreted independently revealed sinus rhythm at 74 bpm with incomplete right bundle branch block. Baseline artifact. No significant repolarization abnormalities Corrected QT interval normal at [address] angiogram of the chest performed 05/28/2024: 1. New lytic metastases C7 and worsening probable insufficiency fracture at T7. 2. Stable spiculated mass in the left upper lobe most certainly neoplastic. 3. No pulmonary embolus identified. 4. Trace left pleural effusion with overlying nodularity may reflect pleural metastases. 5. 2 small solid nodules noted on CT abdomen at the same time may reflect hemangiomas as they now appear isodense. Metastatic disease not completely excluded. Report of outpatient CT of the chest without contrast from the [email or web address] 05/17/2024: Left upper lobe mass measuring 2.0 x 3.0 x 4.3 cm (previously 1.1 x 0.[address] chest 02/08/2023; 1.8 x 2.3 x 3.2 cm on PET-CT 01/22/2024). Prominent centrilobular emphysema. Small subcentimeter juxta pleural lymph node in the left lower lobe. PLEURA: There are no pleural effusions. CHEST WALL/SOFT TISSUES: There is no axillary lymphadenopathy. LINES AND DEVICES: None BONES: Degenerative changes of the spine. New severe T7 vertebral body compression fracture. There is a healing sternal fracture. Osseous metastatic disease is seen within the C7 vertebral body with progressive destructive changes scattered lucency throughout the sternum and manubrium is nonspecific could reflect metastatic disease or heterogenous marrow. VESSELS: The pulmonary trunk is mildly dilated indicative of the sequela of pulmonary arterial hypertension. Atherosclerotic changes in the aorta and coronary arteries.
[2024-06-08] MEDS: FUROSEMIDE 40 MG/4 ML VIAL IV SCH (09:21)
[2024-06-08] MEDS: UMECLIDINIUM/VILANTEROL 62.5/25MCG 7 PUFFS/INHALER INH SCH (09:21)
[2024-06-08] MEDS: FLUTICASONE FUROATE 200MCG 14 PUFFS/INHALER INH SCH (09:21)
[2024-06-08] MEDS: ISOSORBIDE MONO EXTENDED REL 30 MG TABCR PO SCH (09:21)
[2024-06-08] MEDS: ASPIRIN 81 MG ECTAB PO SCH (09:21)
[2024-06-08] MEDS: SOTALOL HCL 80 MG TAB PO SCH (09:21)
[2024-06-08] MEDS: SPIRONOLACTONE 25 MG TAB PO SCH (09:21)
[2024-06-08] MEDS: AZELASTINE HCL 0.1% NASAL 200 SPRAYS/27,400 MCG BTL SCH (09:22)
[2024-06-08] MEDS: methylPREDNISolone 40 MG in SYRINGE 0 ML IV SCH (09:24)
[2024-06-08] MEDS: ALBUT/IPRATROP 3MG/0.5MG NEB 3 ML VIAL NEB PRN (09:49)
--- NOTE | 2024-06-08 11:12 | Pulmonary Consultation ---
Date of Consultation June 08, 2024 Assessment & Plan (1) (HFpEF) heart failure with preserved ejection fraction: (2) Acute exacerbation of chronic obstructive pulmonary disease (COPD): (3) End stage COPD: (4) Pulmonary hypertension: (5) Cor pulmonale: (6) Acute and chronic respiratory failure with hypoxia: Plan CT chest 05/28/2024 personally reviewed: Severe centrilobular and paraseptal emphysema appreciated bilaterally Left upper lobe apical nodularity 2.4 cm (increased in size compared to 01/26, new compared to 10/2018) No significant mediastinal lymphadenopathy --Acute on chronic hypoxic hypercapnic respiratory failure Likely secondary to combination of cor pulmonale as well as COPD Chest x-ray shows probable left lower lobe opacity Respiratory BioFire negative for everything on 06/07/2024 Procalcitonin 0.06 BNP 448 --COPD with emphysema End-stage On 3-4 L oxygen at home On BrezTri inhaler at home -- Pulmonary nodule Spiculated left upper lobe 2.4 cm Increasing in size compared to 01/26 and new compared to 10/2018 Probability of it being cancerous is very high Patient has refused workup in the past -- Pulmonary hypertension with cor pulmonale Likely combination of type II and type III Continue with diuretic --A-fib On sotalol and warfarin Plan: Follow-up sputum culture Nebulized bronchodilators while in the hospital Continue with antibiotics Follow sputum culture I think getting palliative care involved to get goals of care in place would be appropriate Please note the above document was generated using voice recognition software. It may contain grammatical, syntax or spelling errors.Any formal questions or concerns about the content, text or information contained within the body of this dictation should be directly addressed to the provider for clarification. History of Present Illness Attending Physician: Da Villalba MD History of Present Illness 79-year-old female present to the hospital for shortness of breath Past medical history: COPD on 3-4 L oxygen at home, A-fib, HFpEF, pulmonary hypertension, hypertension, dyslipidemia, coronary artery disease Pulmonary consulted for the same At the time of examination patient was in respiratory distress They just cleaned her up and that took a lot of energy for her She said that she is short of breath and asking for breathing treatment, she was not wheezing on the physical exam though. She was saturating 91-92% on 4 L nasal cannula. Heart rate was in the mid 80s She was frustrated during the examination. She was coughing. She says she is able to bring up phlegm. No hemoptysis Subjective fever and some chills Denied any dysuria, no diarrhea She stated that she is compliant with her inhalers Social history: Approximately [id number] smoking history, quit smoking 02/26 Allergies Allergy/AdvReac Type Severity Reaction Status Date / Time dog dander Allergy Severe congestion, Verified 05/17/24 14:11 SOB valsartan Allergy Severe Edema Verified 05/17/24 14:11 face/lips/tongue. levofloxacin [From Levaquin] Allergy Intermediate ITCHY Verified 05/17/24 14:11 HIVES ON TRUNK AND LEGS nickel Allergy Mild Rash. Verified 05/17/24 14:11 NAI Inhibitors AdvReac Intermediate Cough. Verified 05/17/24 14:11 influenza virus vaccine ts AdvReac Intermediate SINUS Verified 05/17/24 14:11 [id number] (36 mos,up) PRESSURE/DRAINAGE [From Fluarix] Home Medications Medication Instructions Recorded Confirmed Type albuterol sulfate 2.5 mg/3 mL 2.5 mg continuous nebulization Q4H 06/07/24 06/07/24 History (0.083 %) solution for nebulization PRN sob albuterol sulfate 90 mcg/actuation 2 puff inhalation Q4H PRN 06/07/24 06/07/24 History aerosol inhaler Shortness Of Breath Or Wheezing aspirin 81 mg tablet,delayed 81 mg PO DAILY 06/07/24 06/07/24 History release azelastine 137 mcg (0.1 %) nasal 1 spray intranasal BID 06/07/24 06/07/24 History spray budesonide 160 mcg-glycopyr 9 2 inh inhalation BID 06/07/24 06/07/24 History mcg-formot 4.8 mcg/actuation HFA inhaler (Breztri Aerosphere) furosemide 20 mg tablet 40 mg PO DAILY 06/07/24 06/07/24 History isosorbide mononitrate 30 mg 30 mg PO DAILY 06/07/24 06/07/24 History tablet,extended release 24 hr nitroglycerin 0.4 mg sublingual 0.4 mg sublingual UD PRN Chest Pain 06/07/24 06/07/24 History tablet oxycodone 5 mg tablet 5 mg PO TID PRN Pain 06/07/24 06/07/24 History sotalol 80 mg tablet 80 mg PO BID 06/07/24 06/07/24 History spironolactone 25 mg tablet 25 mg PO DAILY 06/07/24 06/07/24 History warfarin 2.5 mg tablet 2.5 mg PO UD 06/07/24 06/07/24 History Patient History Medical History Chronic diastolic (congestive) heart failure Tobacco abuse CAD (coronary artery disease), [place] coronary artery Hypertension Emphysema of lung Surgical History S/P right coronary artery (RCA) stent placement H/O: hysterectomy S/P appendectomy Family History Other Colon cancer Social History Smoking Status: Former smoker Tobacco Type: Cigarettes Cigarettes Per Day: smokes occasionally, some days doesn't smoke, other days smokes 3-5 cigs; Second Hand Exposure: No; Do You Dip or Chew Tobacco: No; Hx Alcohol Use: Yes Alcohol type: wine Alcohol Intake Frequency Comment: 1 glass of wine 3-5 days per week Hx Substance Use: No Preferred Language: Algerian Communication Ability: Effective Visual Impairment: Limited Hearing Ability: Normal Red Mud Thickener Operator Required: No Beliefs That Will Affect Care: None marital status: / Current Living Situation: Alone How many Children do You have: 2 Feels Safe at Home: Yes Diet: regular caffeine: Yes during the past year weight has: decreased > 10 lbs Assistive Devices: Oxygen - Continuous Review of Systems 2 Review of Systems: All systems reviewed & are unremarkable except as noted in HPI & below Physical Exam 2 Physical Exam: Constitutional: No acute distress HEENT: EOMI, PERRLA Respiratory system: Decreased air entry bilaterally, no wheeze, no rhonchi, minimal crackles bilateral lower lobes CVS: S1-S2 positive, no murmurs or gallops, accentuated P2 Abdomen: Soft, nontender, nondistended, positive bowel sounds x4 Extremities: +2 pulses bilaterally radialis/ dorsalis pedis, no cyanosis, +2 pitting edema bilateral lower extremity Neuro: Awake alert oriented x3 Psych: Normal mood and affect G/U: No Jolly Skin: no rashes, warm and dry Lymphatic: no cervical or axillary lymphadenopathy Results & Data Results & Data Vital Signs (Past 12 Hours) Vital Signs Pulse Pulse Resp BP Pulse Ox Pulse Ox O2 Del Method 06/08/24 09:51 78 22 96 Nasal Cannula 06/08/24 07:36 70 24 96 High Flow Nasal Cannula 06/08/24 06:57 70 06/08/24 05:00 66 18 149/87 H 97 High Flow Nasal Cannula 06/08/24 03:22 73 21 97 High Flow Nasal Cannula 06/08/24 02:45 77 16 141/75 H 97 High Flow Nasal Cannula 06/08/24 02:45 96 06/08/24 00:43 79 143/70 H 98 High Flow Nasal Cannula 06/08/24 00:25 70 23 152/83 H 98 High Flow Nasal Cannula 06/07/24 23:34 68 O2 Del Method O2 Flow Rate FiO2 06/08/24 09:51 2.5 06/08/24 07:36 30 40 06/08/24 06:57 06/08/24 05:00 30 06/08/24 03:22 30 40 06/08/24 02:45 30 06/08/24 02:45 High Flow Nasal Cannula 06/08/24 00:43 30 06/08/24 00:25 30 06/07/24 23:34 Laboratory Results 06/08/24 05:30 06/08/24 05:30 PG Care Time/CCT Total # of Minutes Spent Total Time Spent with Patient: Total time spent is greater than 50% in coordination of care (as documented) at patient's floor/unit and/or counseling patient: Coding Level of Care Code 23786 INT INP/OBS CARE 3/75MIN Diagnoses (HFpEF) heart failure with preserved ejection fraction I50.30 Acute exacerbation of chronic obstructive pulmonary disease (COPD) J44.1 End stage COPD J44.9 Pulmonary hypertension I27.20 Cor pulmonale I27.81 Acute and chronic respiratory failure with hypoxia J96.21
--- NOTE | 2024-06-08 11:37 | Hospitalist Progress Note ---
Date of Service June 08, 2024 Assessment & Plan (1) Acute and chronic respiratory failure with hypoxia: Plan: 79-year-old female with past medical history significant for hyperlipidemia, prediabetes, chronic respiratory failure with hypoxia on 3 to 4 L oxygen, COPD, history of lung nodule, paroxysmal atrial fibrillation, chronic diastolic CHF, pulmonary hypertension, hypertension, venous insufficiency, CAD, status post drug-eluting stent to the right coronary artery, QT prolongation , history of bladder mass, history of smoking, comes because of shortness of breath with increasing oxygen requirements. Patient's was feeling short of breath since evening. Has chronic cough. Denies any fevers. No runny nose or sore throat. No headache. Denies any chest pain. No nausea. No abdominal pain. Somewhat constipated. Denies any blood in the stools. Micturating okay. Currently on high flow oxygen saturating okay. Patient was in the hospital in first week of May 2024 with acute COPD exacerbation. Patient followed with pulmonary on 05/20/2024. Pulmonary seems to discussed about the left upper lobe findings and PET scan findings and patient does not want a diagnostic workup or oncology evaluation or radiation therapy per pulmonary notes. Acute on chronic respiratory failure with hypoxia Acute COPD exacerbation Acute diastolic CHF Patient chronically on 3 to 4 L oxygen at home Requiring high flow Chest x-ray pulmonary congestion versus atypical infection Diminished breath sounds IV Solu-Medrol 40 mg 3 times daily, nebs [id number] and as needed IV Lasix 40 mg daily and continue spironolactone Will follow echo Empiric antibiotics IV Rocephin and doxycycline procalcitonin negative Pulmonary and cardiology consulted - cont. diuretics, abx, follow sputum cultx, nebulized bronchodilators. palliative med. consult Close monitor History of CAD status post drug-eluting stent to right coronary artery On aspirin, Imdur and Coumadin History of paroxysmal atrial fibrillation On sotalol and Coumadin and INR 2.4 Will follow PT/INR Chronic lower extremity edema On diuretics Left lower extremity wound From hematoma Follows with wound care Wound care Left lung nodule Refused workup Follow History of prediabetes HbA1c 6.1 on 05/04/2024 DVT prophylaxis On Coumadin Will follow PT/INR Admission and Anticipated Discharge Date Admission Date: June 07, 2024 Subjective Pt seen in follow up of acute on chronic hypoxic resp. failure Cardiology and pulm. medicine consulted Pt is sitting up in NAD, just had a breathing treatment Still does not feel well but improved since coming to the hospital. No chest pain , no abd. pain, no fever, chills Review of Systems Review of Systems: All systems reviewed & are unremarkable except as noted in Subjective Physical Exam Physical Exam: General - thin elderly, chronically ill appearing F in NAD, on suppl. O2 Head- atraumatic Eyes- PERRL. Neck- supple Lungs- B/L diminished breath sounds, mild exp. wheezing Heart- regular rhythm; no murmur Abdomen- normal bowel sounds, soft, nontender, no distension Extremities- b/l lower extremity edema present. wound seen on left leg posterior aspect in calf region- no erythema or drainage seen Neuro- alert, oriented PERRL, no facial palsy; no dysarthria; moves extremities Results & Data Results & Data Vital Signs (Past 12 Hours) Vital Signs Pulse Pulse Resp BP Pulse Ox Pulse Ox O2 Del Method 06/08/24 09:51 78 22 96 Nasal Cannula 06/08/24 07:36 70 24 96 High Flow Nasal Cannula 06/08/24 06:57 70 06/08/24 05:00 66 18 149/87 H 97 High Flow Nasal Cannula 06/08/24 03:22 73 21 97 High Flow Nasal Cannula 06/08/24 02:45 77 16 141/75 H 97 High Flow Nasal Cannula 06/08/24 02:45 96 06/08/24 00:43 79 143/70 H 98 High Flow Nasal Cannula 06/08/24 00:25 70 23 152/83 H 98 High Flow Nasal Cannula O2 Del Method O2 Flow Rate FiO2 06/08/24 09:51 2.5 06/08/24 07:36 30 40 06/08/24 06:57 06/08/24 05:00 30 06/08/24 03:22 30 40 06/08/24 02:45 30 06/08/24 02:45 High Flow Nasal Cannula 06/08/24 00:43 30 06/08/24 00:25 30 Laboratory Results 06/08/24 06/08/24 06/07/24 Range/Units 11:11 05:30 19:45 WBC 11.10 H 11.72 H (4.8-10.8) K/ul RBC 4.12 L 4.35 (4.20-5.40) M/uL Hgb 12.3 12.9 (12.0-16.0) g/dl Hct 37.6 40.6 (37.0-47.0) % MCV 91.3 93.3 (80.0-100.0) fL MCH 29.9 29.7 (25.0-34.0) pg MCHC 32.7 31.8 L (32.0-36.0) g/dL RDW Std Deviation 43.3 44.2 (36.4-46.3) fL RDW Coeff of Anais 13.0 13.0 (11.5-14.5) % Plt Count 299 320 (130-400) K/uL MPV 10.1 10.1 (9.4-12.4) fL Immature Gran % (Auto) 0.6 0.5 % Neut % (Auto) 91.1 79.1 % Lymph % (Auto) 6.2 9.8 % Yell % (Auto) 1.9 9.9 % Eos % (Auto) 0.0 0.4 % Baso % (Auto) 0.2 0.3 % Neut # (Auto) 10.11 H 9.27 H (1.40-6.50) K/uL Lymph # (Auto) 0.69 L 1.15 L (1.20-3.40) K/uL Yell # (Auto) 0.21 1.16 H (0.11-0.59) K/uL Eos # (Auto) 0.00 0.05 (0.00-0.50) K/uL Baso # (Auto) 0.02 0.03 (0.00-0.20) K/uL Immature Gran # (Auto) 0.07 0.06 (0.01-0.20) K/uL PT 21.5 H 23.9 H (9.0-12.0) Seconds INR 2.1 H 2.4 H (0.9-1.1) Sodium 135 L 134 L (136-145) mmol/L Potassium 4.2 4.3 (3.5-5.1) mmol/L Chloride 93 L 95 L (98-107) mmol/L Carbon Dioxide 34 H 33 H (21-32) mmol/L Anion Gap 8 6 (3-11) BUN 16 15 (6-23) mg/dl Creatinine 0.64 0.61 (0.6-1.2) mg/dl Est Cr Clr Drug Dosing 64.5 67.7 ml/min eGFR 88.73 89.76 BUN/Creatinine Ratio 25.0 H 24.6 H (10-20) Glucose 145 H 114 H (70-99(Fasting)) mg/dl Calcium 8.9 9.4 (8.6-10.3) mg/dl Magnesium 1.8 1.8 (1.7-2.4) mg/dl Total Bilirubin 0.8 (0.2-1.0) mg/dl AST 16 (13-39) U/L ALT 18 (7-52) U/L Alkaline Phosphatase 110 H (34-104) U/L Troponin I High Sens Pending 16.3 H 16.0 H (0-14) pg/ml B-Natriuretic Peptide 448 H (0-100) pg/ml Total Protein 7.2 (6.0-8.3) gm/dl Albumin 3.6 (3.4-5.0) gm/dl Globulin 3.6 (2.5-4.0) gm/dl Albumin/Globulin Ratio 1.0 (0.9-2) Lipase 5 L (11-82) U/L Procalcitonin 0.06 (0-0.5) ng/ml Adenovirus (PCR) Not Detected (NotDetected) B. pertussis DNA (PCR) Not Detected (NotDetected) B.parapertussis DNA PCR Not Detected (NotDetected) C. pneumoniae DNA (PCR) Not Detected (NotDetected) Coronavirus OC43 (PCR) Not Detected (NotDetected) Coronavirus HKU1 (PCR) Not Detected (NotDetected) Coronavirus 229E (PCR) Not Detected (NotDetected) SARS-CoV-2 (PCR) Not Detected (NotDetected) Coronavirus NL63 (PCR) Not Detected (NotDetected) Human Metapneumovir PCR Not Detected (NotDetected) Influenza Type A (PCR) Not Detected (NotDetected) Influenza Type B (PCR) Not Detected (NotDetected) M. pneumoniae (PCR) Not Detected (NotDetected) Parainfluenza 1 (PCR) Not Detected (NotDetected) Parainfluenza 2 (PCR) Not Detected (NotDetected) Parainfluenza 3 (PCR) Not Detected (NotDetected) Parainfluenza 4 (PCR) Not Detected (NotDetected) RSV (PCR) Not Detected (NotDetected) Entero/Rhino (PCR) Not Detected (NotDetected) Medications Administered Current Inpatient Medications Acetaminophen (Acetaminophen 325 Mg Tab) 650 mg PO Q6H PRN PRN Reason: Pain or Fever Stop: 07/08/24 00:34 Albuterol (Albuterol Hfa 8 Gm Inhaler) 2 puffs INH Q4H PRN PRN Reason: Shortness Of Breath Or Wheezin Stop: 07/08/24 00:34 Albuterol (Albut/Ipratrop 3mg/0.5mg Neb 3 Ml Vial) 3 ml NEB QIDR [facility]; Protocol Stop: 07/08/24 06:59 Last Admin: 06/08/24 09:49 Dose: Not Given Albuterol (Albut/Ipratrop 3mg/0.5mg Neb 3 Ml Vial) 3 ml NEB Q4H PRN; Protocol PRN Reason: Shortness Of Breath Or Wheezing Stop: 07/08/24 00:34 Last Admin: 06/08/24 09:49 Dose: 3 ml Aspirin (Aspirin 81 Mg Ectab) 81 mg PO DAILY [facility] Stop: 07/08/24 08:59 Last Admin: 06/08/24 09:21 Dose: 81 mg Azelastine HCl (Azelastine Hcl 0.1% Nasal 200 Sprays/27,400 Mcg Btl) 1 sprays NA BID [facility] Stop: 07/08/24 08:59 Last Admin: 06/08/24 09:22 Dose: 1 sprays Doxycycline Hyclate (Doxycycline Hyclate 100 Mg Cap) 100 mg PO BID [facility] Stop: 06/13/24 00:34 Last Admin: 06/08/24 10:58 Dose: Not Given Fluticasone Furoate (Fluticasone Furoate 200mcg 14 Puffs/Inhaler) 1 puffs INH DAILY [facility] Stop: 07/08/24 08:59 Last Admin: 06/08/24 09:21 Dose: 1 puffs Furosemide (Furosemide 40 Mg/4 Ml Vial) 40 mg IV DAILY [facility] Stop: 07/08/24 08:59 Last Admin: 06/08/24 09:21 Dose: 40 mg Ceftriaxone Sodium (Rocephin) 2,000 mg in 50 mls @ 100 mls/hr IV Q24H [facility] Stop: 06/13/24 05:59 Last Infusion: 06/08/24 08:55 Dose: Infused Methylprednisolone 40 mg/ (Syringe) 0.64 mls @ 1.5 mls/min IV Q8H [facility] Stop: 07/08/24 07:59 Last Admin: 06/08/24 09:24 Dose: 1.5 mls/min Doxycycline Hyclate 100 mg/ (Dextrose) 100 mls @ 50 mls/hr IV Q12H [facility] Stop: 06/13/24 10:59 Isosorbide Mononitrate (Isosorbide Yell Extended Rel 30 Mg Tabcr) 30 mg PO DAILY [facility] Stop: 07/08/24 08:59 Last Admin: 06/08/24 09:21 Dose: 30 mg Nitroglycerin (Nitroglycerin Sl 0.4 Mg/Tab Tab) 0.4 mg SL Q5M PRN PRN Reason: Chest Pain Stop: 07/08/24 00:34 Oxycodone HCl (Oxycodone Hcl Ir 5 Mg Tab (Immediate Release)) 5 mg PO TID PRN PRN Reason: Pain Stop: 06/22/24 00:34 Polyethylene Glycol (Polyethylene (Miralax) 17 Gm Pack) 17 gm PO DAILY PRN PRN Reason: Constipation Stop: 07/08/24 00:34 Sotalol HCl (Sotalol Hcl 80 Mg Tab) 80 mg PO BID [facility] Stop: 07/08/24 08:59 Last Admin: 06/08/24 09:21 Dose: 80 mg Spironolactone (Spironolactone 25 Mg Tab) 25 mg PO DAILY [facility] Stop: 07/08/24 08:59 Last Admin: 06/08/24 09:21 Dose: 25 mg Umeclidinium/Vilanterol (Umeclidinium/Vilanterol 62.5/25mcg 7 Puffs/Inhaler) 1 puffs INH DAILY [facility] Stop: 07/08/24 08:59 Last Admin: 06/08/24 09:21 Dose: 1 puffs Warfarin Sodium (Warfarin Sod 2.5 Mg Tab) 2.5 mg PO [email or web address] [facility] Stop: 07/10/24 15:59 Warfarin Sodium (Warfarin Sod 1.25 Mg Tab) 1.25 mg PO [email or web address] [facility] Stop: 07/08/24 15:59
[2024-06-08] MEDS: DOXYCYCLINE HYCLATE 100 MG in DEXTROSE 5% MINI-B 100 ML IV SCH (12:38)
[2024-06-08] MEDS: WARFARIN SOD 1.25 MG TAB PO SCH (16:52)
[2024-06-09 06:25] LABS: Hematocrit (blood only) 33.7 % (37.0-47.0); Hemoglobin 11.1 g/dl (12.0-16.0); Mean Corpuscular Hemoglobin 30.2 pg (25.0-34.0); Mean Corpuscular Hgb Conc 32.9 g/dL (32.0-36.0); Mean Corpuscular Volume 91.6 fL (80.0-100.0); Mean Platelet Volume 10.3 fL (9.4-12.4); Platelet Count 314 K/uL (130-400); RDW Coefficient of Variation 12.9 % (11.5-14.5); RDW Standard Deviation 43.3 fL (36.4-46.3); Red Blood Count 3.68 M/uL (4.20-5.40); White Blood Count 18.35 K/ul (4.8-10.8)
[2024-06-09 06:35] LABS: BUN Creatinine Ratio 45.2 (10-20); Calcium 8.8 mg/dl (8.6-10.3); Creatinine Clr Calc Pharmacy 66.6 ml/min; Magnesium 1.8 mg/dl (1.7-2.4); Phosphorus 2.7 mg/dl (2.5-4.9); Potassium 4.1 mmol/L (3.5-5.1)
[2024-06-09 06:42] LABS: INR 1.9 (0.9-1.1); Prothrombin Time 19.4 Seconds (9.0-12.0)
--- NOTE | 2024-06-09 11:52 | Pulmonology Progress Note ---
Date of Service June 09, 2024 Assessment & Plan (1) (HFpEF) heart failure with preserved ejection fraction: (2) Acute exacerbation of chronic obstructive pulmonary disease (COPD): (3) End stage COPD: (4) Pulmonary hypertension: (5) Cor pulmonale: (6) Acute and chronic respiratory failure with hypoxia: Plan CT chest 05/28/2024 personally reviewed: Severe centrilobular and paraseptal emphysema appreciated bilaterally Left upper lobe apical nodularity 2.4 cm (increased in size compared to 01/26, new compared to 10/2018) No significant mediastinal lymphadenopathy --Acute on chronic hypoxic hypercapnic respiratory failure Likely secondary to combination of cor pulmonale as well as COPD Chest x-ray shows probable left lower lobe opacity Respiratory BioFire negative for everything on 06/07/2024 Procalcitonin 0.06 BNP 448 --COPD with emphysema End-stage On 3-4 L oxygen at home On BrezTri inhaler at home -- Pulmonary nodule Spiculated left upper lobe 2.4 cm Increasing in size compared to 01/26 and new compared to 10/2018 Probability of it being cancerous is very high Patient has refused workup in the past -- Pulmonary hypertension with cor pulmonale Likely combination of type II and type III Continue with diuretic --A-fib On sotalol and warfarin Plan: Follow-up sputum culture Nebulized bronchodilators while in the hospital Continue with antibiotics Follow sputum culture Decrease Solu-Medrol to 40 mg twice daily Patient is refusing BiPAP/CPAP as she is claustrophobic and not able to tolerate it. I think getting palliative care involved to get goals of care in place would be appropriate Case was discussed with primary team Please note the above document was generated using voice recognition software. It may contain grammatical, syntax or spelling errors.Any formal questions or concerns about the content, text or information contained within the body of this dictation should be directly addressed to the provider for clarification. Admission and Anticipated Discharge Date Admission Date: June 07, 2024 Subjective Patient seen and examined at bedside. No acute distress, no adverse events overnight She stated that she is feeling better compared to yesterday She was in a pleasant mood compared to yesterday Shortness of breath is improving. Denied any chest pain Fair appetite, no nausea or vomiting Review of Systems 2 Review of Systems: All systems reviewed & are unremarkable except as noted in Subjective Physical Exam 2 Physical Exam: Constitutional: No acute distress HEENT: EOMI, PERRLA Respiratory system: Decreased air entry bilaterally, no rhonchi, minimal expiratory wheeze bilaterally, positive crackles bilateral lower lobes CVS: S1-S2 positive, no murmurs or gallops, accentuated P2 Abdomen: Soft, nontender, nondistended, positive bowel sounds x4 Extremities: +2 pulses bilaterally radialis/ dorsalis pedis, no cyanosis, +1 pitting edema bilateral lower extremity Neuro: Awake alert oriented x3 Psych: Normal mood and affect G/U: No Jolly Skin: no rashes, warm and dry Lymphatic: no cervical or axillary lymphadenopathy Results & Data Results & Data Vital Signs (Past 12 Hours) Vital Signs Temp Pulse Pulse Resp BP Pulse Ox O2 Del Method 06/09/24 11:37 36.6 C 54 L 18 119/54 L 96 Nasal Cannula 06/09/24 11:29 66 16 96 Nasal Cannula 06/09/24 10:11 60 06/09/24 08:00 60 16 96 Nasal Cannula 06/09/24 07:34 Nasal Cannula 06/09/24 07:33 36.7 C 61 18 150/56 H 99 Nasal Cannula 06/09/24 03:01 36.6 C 63 16 136/78 96 Nasal Cannula O2 Flow Rate 06/09/24 11:37 2 06/09/24 11:29 2 06/09/24 10:11 06/09/24 08:00 2 06/09/24 07:34 2 06/09/24 07:33 4 06/09/24 03:01 Laboratory Results 06/09/24 05:54 06/09/24 05:54 PG Care Time/CCT Total # of Minutes Spent Total Time Spent with Patient: Total time spent is greater than 50% in coordination of care (as documented) at patient's floor/unit and/or counseling patient: Coding Level of Care Code 16722 SUB INP/OBS CARE 3/50MIN Diagnoses (HFpEF) heart failure with preserved ejection fraction I50.30 Acute exacerbation of chronic obstructive pulmonary disease (COPD) J44.1 End stage COPD J44.9 Pulmonary hypertension I27.20 Cor pulmonale I27.81 Acute and chronic respiratory failure with hypoxia J96.21
--- NOTE | 2024-06-09 13:43 | Hospitalist Progress Note ---
Date of Service June 09, 2024 Assessment & Plan (1) Acute and chronic respiratory failure with hypoxia: Plan: 79-year-old female with past medical history significant for hyperlipidemia, prediabetes, chronic respiratory failure with hypoxia on 3 to 4 L oxygen, COPD, history of lung nodule, paroxysmal atrial fibrillation, chronic diastolic CHF, pulmonary hypertension, hypertension, venous insufficiency, CAD, status post drug-eluting stent to the right coronary artery, QT prolongation , history of bladder mass, history of smoking, comes because of shortness of breath with increasing oxygen requirements. Patient's was feeling short of breath since evening. Has chronic cough. Denies any fevers. No runny nose or sore throat. No headache. Denies any chest pain. No nausea. No abdominal pain. Somewhat constipated. Denies any blood in the stools. Micturating okay. Currently on high flow oxygen saturating okay. Patient was in the hospital in first week of May 2024 with acute COPD exacerbation. Patient followed with pulmonary on 05/20/2024. Pulmonary seems to discussed about the left upper lobe findings and PET scan findings and patient does not want a diagnostic workup or oncology evaluation or radiation therapy per pulmonary notes. Acute on chronic respiratory failure with hypoxia Acute COPD exacerbation Acute diastolic CHF Patient chronically on 3 to 4 L oxygen at home Requiring high flow on admission Chest x-ray pulmonary congestion versus atypical infection Diminished breath sounds IV Solu-Medrol 40 mg 3 times daily, nebs [id number] and as needed IV Lasix 40 mg daily and continue spironolactone echo ordered Empiric antibiotics IV Rocephin and doxycycline -> switched to cefepime given sputum cultx posit. for pseudomonas procalcitonin negative Pulmonary and cardiology consulted - cont. diuretics, abx, nebulized bronchodilators. palliative med. consult Close monitor History of CAD status post drug-eluting stent to right coronary artery On aspirin, Imdur and Coumadin History of paroxysmal atrial fibrillation On sotalol and Coumadin and INR 2.4 Will follow PT/INR Chronic lower extremity edema On diuretics Left lower extremity wound From hematoma Follows with wound care Wound care Left lung nodule Refused workup Follow History of prediabetes HbA1c 6.1 on 05/04/2024 DVT prophylaxis On Coumadin Will follow PT/INR Admission and Anticipated Discharge Date Admission Date: June 07, 2024 Subjective Pt seen in follow up of acute on chronic hypoxic resp. failure Cardiology and pulm. medicine consulted Pt is laying in bed in NAD Still does not feel well but improved since coming to the hospital. No chest pain , no abd. pain, no fever, chills + cough sputum cultx posit. for Pseudomonas - abx switched to cefepime Review of Systems Review of Systems: All systems reviewed & are unremarkable except as noted in Subjective Physical Exam Physical Exam: General - thin elderly, chronically ill appearing F in NAD, on suppl. O2 Head- atraumatic Eyes- PERRL. Neck- supple Lungs- B/L diminished breath sounds, mild exp. wheezing Heart- regular rhythm; no murmur Abdomen- normal bowel sounds, soft, nontender, no distension Extremities- b/l lower extremity edema much improved. wound seen on left leg posterior aspect in calf region- no erythema or drainage seen Neuro- alert, oriented PERRL, no facial palsy; no dysarthria; moves extremities Results & Data Results & Data Vital Signs (Past 12 Hours) Vital Signs Temp Pulse Pulse Resp BP Pulse Ox O2 Del Method 06/09/24 11:37 36.6 C 54 L 18 119/54 L 96 Nasal Cannula 06/09/24 11:29 66 16 96 Nasal Cannula 06/09/24 10:11 60 06/09/24 08:00 60 16 96 Nasal Cannula 06/09/24 07:34 Nasal Cannula 06/09/24 07:33 36.7 C 61 18 150/56 H 99 Nasal Cannula 06/09/24 03:01 36.6 C 63 16 136/78 96 Nasal Cannula O2 Flow Rate 06/09/24 11:37 2 06/09/24 11:29 2 06/09/24 10:11 06/09/24 08:00 2 06/09/24 07:34 2 06/09/24 07:33 4 06/09/24 03:01 Laboratory Results 06/09/24 06/08/24 Range/Units 05:54 17:22 WBC 18.35 H (4.8-10.8) K/ul RBC 3.68 L (4.20-5.40) M/uL Hgb 11.1 L (12.0-16.0) g/dl Hct 33.7 L (37.0-47.0) % MCV 91.6 (80.0-100.0) fL MCH 30.2 (25.0-34.0) pg MCHC 32.9 (32.0-36.0) g/dL RDW Std Deviation 43.3 (36.4-46.3) fL RDW Coeff of Anais 12.9 (11.5-14.5) % Plt Count 314 (130-400) K/uL MPV 10.3 (9.4-12.4) fL PT 19.4 H (9.0-12.0) Seconds INR 1.9 H (0.9-1.1) Sodium 134 L (136-145) mmol/L Potassium 4.1 (3.5-5.1) mmol/L Chloride 95 L (98-107) mmol/L Carbon Dioxide 35 H (21-32) mmol/L Anion Gap 4 (3-11) BUN 28 H (6-23) mg/dl Creatinine 0.62 (0.6-1.2) mg/dl Est Cr Clr Drug Dosing 66.6 ml/min eGFR 89.41 BUN/Creatinine Ratio 45.2 H (10-20) Glucose 157 H (70-99(Fasting)) mg/dl Calcium 8.8 (8.6-10.3) mg/dl Phosphorus 2.7 (2.5-4.9) mg/dl Magnesium 1.8 (1.7-2.4) mg/dl Troponin I High Sens 16.8 H (0-14) pg/ml Medications Administered Current Inpatient Medications Acetaminophen (Acetaminophen 325 Mg Tab) 650 mg PO Q6H PRN PRN Reason: Pain or Fever Stop: 07/08/24 00:34 Albuterol (Albuterol Hfa 8 Gm Inhaler) 2 puffs INH Q4H PRN PRN Reason: Shortness Of Breath Or Wheezin Stop: 07/08/24 00:34 Albuterol (Albut/Ipratrop 3mg/0.5mg Neb 3 Ml Vial) 3 ml NEB QIDR [facility]; Protocol Stop: 07/08/24 06:59 Last Admin: 06/09/24 11:29 Dose: 3 ml Albuterol (Albut/Ipratrop 3mg/0.5mg Neb 3 Ml Vial) 3 ml NEB Q4H PRN; Protocol PRN Reason: Shortness Of Breath Or Wheezing Stop: 07/08/24 00:34 Last Admin: 06/08/24 19:52 Dose: 3 ml Aspirin (Aspirin 81 Mg Ectab) 81 mg PO DAILY [facility] Stop: 07/08/24 08:59 Last Admin: 06/09/24 08:37 Dose: 81 mg Azelastine HCl (Azelastine Hcl 0.1% Nasal 200 Sprays/27,400 Mcg Btl) 1 sprays NA BID [facility] Stop: 07/08/24 08:59 Last Admin: 06/09/24 08:35 Dose: Not Given Doxycycline Hyclate (Doxycycline Hyclate 100 Mg Cap) 100 mg PO BID [facility] Stop: 06/13/24 00:34 Last Admin: 06/08/24 10:58 Dose: Not Given Fluticasone Furoate (Fluticasone Furoate 200mcg 14 Puffs/Inhaler) 1 puffs INH DAILY [facility] Stop: 07/08/24 08:59 Last Admin: 06/09/24 08:35 Dose: 1 puffs Furosemide (Furosemide 40 Mg/4 Ml Vial) 40 mg IV DAILY [facility] Stop: 07/08/24 08:59 Last Admin: 06/09/24 08:37 Dose: 40 mg Ceftriaxone Sodium (Rocephin) 2,000 mg in 50 mls @ 100 mls/hr IV Q24H [facility] Stop: 06/13/24 05:59 Last Infusion: 06/09/24 13:33 Dose: Infused Methylprednisolone 40 mg/ (Syringe) 0.64 mls @ 1.5 mls/min IV Q8H [facility] Stop: 07/08/24 07:59 Last Admin: 06/09/24 11:22 Dose: 1.5 mls/min Doxycycline Hyclate 100 mg/ (Dextrose) 100 mls @ 50 mls/hr IV Q12H [facility] Stop: 06/13/24 10:59 Last Admin: 06/09/24 11:00 Dose: 50 mls/hr Isosorbide Mononitrate (Isosorbide [place] Extended Rel 30 Mg Tabcr) 30 mg PO DAILY [facility] Stop: 07/08/24 08:59 Last Admin: 06/09/24 08:37 Dose: 30 mg Magnesium Oxide (Magnesium Oxide 400 Mg Tab) 400 mg PO QAM [facility] Stop: 07/09/24 13:44 Nitroglycerin (Nitroglycerin Sl 0.4 Mg/Tab Tab) 0.4 mg SL Q5M PRN PRN Reason: Chest Pain Stop: 07/08/24 00:34 Oxycodone HCl (Oxycodone Hcl Ir 5 Mg Tab (Immediate Release)) 5 mg PO TID PRN PRN Reason: Pain Stop: 06/22/24 00:34 Polyethylene Glycol (Polyethylene (Miralax) 17 Gm Pack) 17 gm PO DAILY PRN PRN Reason: Constipation Stop: 07/08/24 00:34 Sotalol HCl (Sotalol Hcl 80 Mg Tab) 80 mg PO BID [facility] Stop: 07/08/24 08:59 Last Admin: 06/09/24 08:36 Dose: 80 mg Spironolactone (Spironolactone 25 Mg Tab) 25 mg PO DAILY [facility] Stop: 07/08/24 08:59 Last Admin: 06/09/24 08:36 Dose: 25 mg Umeclidinium/Vilanterol (Umeclidinium/Vilanterol 62.5/25mcg 7 Puffs/Inhaler) 1 puffs INH DAILY [facility] Stop: 07/08/24 08:59 Last Admin: 06/09/24 08:36 Dose: 1 puffs Warfarin Sodium (Warfarin Sod 2.5 Mg Tab) 2.5 mg PO [email or web address] [facility] Stop: 07/10/24 15:59 Warfarin Sodium (Warfarin Sod 1.25 Mg Tab) 1.25 mg PO [email or web address] [facility] Stop: 07/08/24 15:59 Last Admin: 06/08/24 16:52 Dose: 1.25 mg
[2024-06-09] MEDS: MAGNESIUM OXIDE 400 MG TAB PO SCH (14:08)
[2024-06-09] MEDS: CEFEPIME 2000MG 2,000 MG/20 ML SYR IV SCH (16:29)
[2024-06-09] MEDS: BUDESONIDE 0.5 MG/2 ML VIAL (PULMICORT) NEB SCH (20:28)
[2024-06-09] MEDS: FORMOTEROL 20 MCG/2 ML VIAL INH SCH (20:28)
[2024-06-09] MEDS: methylPREDNISolone 40 MG in SYRINGE 0 ML IV SCH (20:47)
[2024-06-10 06:18] LABS: Hematocrit (blood only) 34.1 % (37.0-47.0); Hemoglobin 11.2 g/dl (12.0-16.0); Mean Corpuscular Hemoglobin 29.8 pg (25.0-34.0); Mean Corpuscular Hgb Conc 32.8 g/dL (32.0-36.0); Mean Corpuscular Volume 90.7 fL (80.0-100.0); Platelet Count 320 K/uL (130-400); RDW Coefficient of Variation 12.8 % (11.5-14.5); RDW Standard Deviation 42.4 fL (36.4-46.3); Red Blood Count 3.76 M/uL (4.20-5.40); White Blood Count 19.06 K/ul (4.8-10.8)
[2024-06-10 06:36] LABS: BUN Creatinine Ratio 47.4 (10-20); Calcium 8.6 mg/dl (8.6-10.3); Creatinine Clr Calc Pharmacy 54.3 ml/min; Magnesium 1.8 mg/dl (1.7-2.4); Potassium 4.1 mmol/L (3.5-5.1)
[2024-06-10 06:43] LABS: INR 1.8 (0.9-1.1); Prothrombin Time 18.2 Seconds (9.0-12.0)
--- NOTE | 2024-06-10 08:55 | Electrocardiogram Report ---
Test Reason : Blood Pressure : */* mmHG Vent. Rate : 74 BPM Atrial Rate : 74 BPM P-R Int : 122 ms QRS Dur : 96 ms QT Int : 398 ms P-R-T Axes : 86 56 44 degrees QTcB Int : 441 ms Normal sinus rhythm Incomplete right bundle branch block Borderline ECG When compared with ECG of 28-May-2024 14:51, T wave amplitude has decreased in Inferior leads Confirmed by Roberto Jackson [id number]) on 06/10/2024 8:54:43 AM Referred By: REFERRED SELF Confirmed By: Roberto Jackson
[2024-06-10 09:29] LABS: iSTAT Arterial Blood Gas HCO3 32 meg/L (19-24); iSTAT Arterial Blood Gas pCO2 40 mmHg (35-46); iSTAT Arterial Blood Gas pO2 68 mmHg (80-95); iSTAT Carbon Dioxide 33 mmol/L (24-31); iSTAT Hematocrit 42 % (37-47); iSTAT Hemoglobin 14.3 g/dl (12.0-16.0); iSTAT Potassium 3.7 mmol/L (3.3-5.0); iSTAT Sodium 131 mmol/L (135-144)
--- NOTE | 2024-06-10 10:06 | Hospitalist Progress Note ---
Date of Service June 10, 2024 Assessment & Plan (1) Acute and chronic respiratory failure with hypoxia: Plan: 79-year-old female with past medical history significant for hyperlipidemia, prediabetes, chronic respiratory failure with hypoxia on 3 to 4 L oxygen, COPD, history of lung nodule, paroxysmal atrial fibrillation, chronic diastolic CHF, pulmonary hypertension, hypertension, venous insufficiency, CAD, status post drug-eluting stent to the right coronary artery, QT prolongation , history of bladder mass, history of smoking, comes because of shortness of breath with increasing oxygen requirements. Patient's was feeling short of breath since evening. Has chronic cough. Denies any fevers. No runny nose or sore throat. No headache. Denies any chest pain. No nausea. No abdominal pain. Somewhat constipated. Denies any blood in the stools. Micturating okay. Currently on high flow oxygen saturating okay. Patient was in the hospital in first week of May 2024 with acute COPD exacerbation. Patient followed with pulmonary on 05/20/2024. Pulmonary seems to discussed about the left upper lobe findings and PET scan findings and patient does not want a diagnostic workup or oncology evaluation or radiation therapy per pulmonary notes. Acute on chronic respiratory failure with hypoxia Acute COPD exacerbation Acute diastolic CHF Patient chronically on 3 to 4 L oxygen at home Requiring high flow on admission Chest x-ray pulmonary congestion versus atypical infection Diminished breath sounds IV Solu-Medrol 40 mg 3 times daily, nebs [id number] and as needed IV Lasix 40 mg daily and continue spironolactone echo obyained Empiric antibiotics IV Rocephin and doxycycline -> switched to cefepime given sputum cultx posit. for pseudomonas procalcitonin negative Pulmonary and cardiology consulted - cont. diuretics, abx, nebulized bronchodilators. palliative med. consult Close monitor History of CAD status post drug-eluting stent to right coronary artery On aspirin, Imdur and Coumadin History of paroxysmal atrial fibrillation On sotalol and Coumadin and INR 2.4 Will follow PT/INR Chronic lower extremity edema On diuretics Left lower extremity wound From hematoma Follows with wound care Wound care Left lung nodule Refused workup Follow History of prediabetes HbA1c 6.1 on 05/04/2024 DVT prophylaxis On Coumadin Will follow PT/INR Admission and Anticipated Discharge Date Admission Date: June 07, 2024 Subjective Pt seen in follow up of acute on chronic hypoxic resp. failure Cardiology and pulm. medicine consulted Pt is sitting up in chair in NAD feels improved since coming to the hospital. No chest pain , no abd. pain, no fever, chills + cough sputum cultx posit. for Pseudomonas - abx switched to cefepime yesterday reports exhaustion/ shortness of breath with any minimal movement palliative med also consulted Review of Systems Review of Systems: All systems reviewed & are unremarkable except as noted in Subjective Physical Exam Physical Exam: General - thin elderly, chronically ill appearing F in NAD, on suppl. O2 Head- atraumatic Eyes- PERRL. Neck- supple Lungs- B/L diminished breath sounds, mild exp. wheezing Heart- regular rhythm; no murmur Abdomen- normal bowel sounds, soft, nontender, no distension Extremities- b/l lower extremity edema much improved. wound seen on left leg posterior aspect in calf region- no erythema or drainage seen Neuro- alert, oriented PERRL, no facial palsy; no dysarthria; moves extremities Results & Data Results & Data Vital Signs (Past 12 Hours) Vital Signs Temp Pulse Pulse Resp BP Pulse Ox O2 Del Method 06/10/24 08:04 68 16 97 Nasal Cannula 06/10/24 07:39 36.6 C 57 L 16 145/79 H 95 Nasal Cannula 06/10/24 03:54 36.7 C 62 16 148/70 H 95 Nasal Cannula 06/09/24 23:44 64 06/09/24 23:19 36.6 C 66 16 133/72 95 Room Air O2 Flow Rate 06/10/24 08:04 2 06/10/24 07:39 4 06/10/24 03:54 4 06/09/24 23:44 06/09/24 23:19 Laboratory Results 06/10/24 06/08/24 Range/Units 06:06 11:42 WBC 19.06 H (4.8-10.8) K/ul RBC 3.76 L (4.20-5.40) M/uL Hgb 11.2 L (12.0-16.0) g/dl POC Hgb 14.3 (12.0-16.0) g/dl Hct 34.1 L (37.0-47.0) % POC Hct 42 (37-47) % MCV 90.7 (80.0-100.0) fL MCH 29.8 (25.0-34.0) pg MCHC 32.8 (32.0-36.0) g/dL RDW Std Deviation 42.4 (36.4-46.3) fL RDW Coeff of Anais 12.8 (11.5-14.5) % Plt Count 320 (130-400) K/uL MPV 10.0 (9.4-12.4) fL PT 18.2 H (9.0-12.0) Seconds INR 1.8 H (0.9-1.1) POC pH 7.50 H (7.35-7.45) POC pCO2 40 (35-46) mmHg POC pO2 68 L (80-95) mmHg POC HCO3 32 H (19-24) petros/L POC Total CO2 33 H (24-31) mmol/L POC Base Excess 8.0 H (-9-1.8) pteros/L POC ABG O2 Sat 95.0 (90-95) % POC Sodium 131 L (135-144) mmol/L Sodium 136 (136-145) mmol/L POC Potassium 3.7 (3.3-5.0) mmol/L Potassium 4.1 (3.5-5.1) mmol/L Chloride 97 L (98-107) mmol/L Carbon Dioxide 34 H (21-32) mmol/L Anion Gap 5 (3-11) BUN 36 H (6-23) mg/dl Creatinine 0.76 (0.6-1.2) mg/dl Est Cr Clr Drug Dosing 54.3 ml/min eGFR 78.67 BUN/Creatinine Ratio 47.4 H (10-20) Glucose 147 H (70-99(Fasting)) mg/dl Calcium 8.6 (8.6-10.3) mg/dl Phosphorus 3.0 (2.5-4.9) mg/dl Magnesium 1.8 (1.7-2.4) mg/dl Medications Administered Current Inpatient Medications Acetaminophen (Acetaminophen 325 Mg Tab) 650 mg PO Q6H PRN PRN Reason: Pain or Fever Stop: 07/08/24 00:34 Albuterol (Albuterol Hfa 8 Gm Inhaler) 2 puffs INH Q4H PRN PRN Reason: Shortness Of Breath Or Wheezin Stop: 07/08/24 00:34 Albuterol (Albut/Ipratrop 3mg/0.5mg Neb 3 Ml Vial) 3 ml NEB QIDR [facility]; Protocol Stop: 07/08/24 06:59 Last Admin: 06/10/24 08:02 Dose: Not Given Albuterol (Albut/Ipratrop 3mg/0.5mg Neb 3 Ml Vial) 3 ml NEB Q4H PRN; Protocol PRN Reason: Shortness Of Breath Or Wheezing Stop: 07/08/24 00:34 Last Admin: 06/08/24 19:52 Dose: 3 ml Aspirin (Aspirin 81 Mg Ectab) 81 mg PO DAILY [facility] Stop: 07/08/24 08:59 Last Admin: 06/09/24 08:37 Dose: 81 mg Azelastine HCl (Azelastine Hcl 0.1% Nasal 200 Sprays/27,400 Mcg Btl) 1 sprays NA BID [facility] Stop: 07/08/24 08:59 Last Admin: 06/09/24 20:46 Dose: 1 sprays Budesonide (Budesonide 0.5 Mg/2 Ml Vial (Pulmicort)) 0.5 mg NEB BIDR [facility] Stop: 07/09/24 18:59 Last Admin: 06/10/24 08:04 Dose: 0.5 mg Doxycycline Hyclate (Doxycycline Hyclate 100 Mg Cap) 100 mg PO BID [facility] Stop: 06/13/24 00:34 Last Admin: 06/08/24 10:58 Dose: Not Given Formoterol Fumarate (Formoterol 20 Mcg/2 Ml Vial) 20 mcg INH BIDR [facility] Stop: 07/09/24 18:59 Last Admin: 06/10/24 08:02 Dose: 20 mcg Furosemide (Furosemide 40 Mg/4 Ml Vial) 40 mg IV DAILY [facility] Stop: 07/08/24 08:59 Last Admin: 06/09/24 08:37 Dose: 40 mg Doxycycline Hyclate 100 mg/ (Dextrose) 100 mls @ 50 mls/hr IV Q12H [facility] Stop: 06/13/24 10:59 Last Infusion: 06/10/24 01:04 Dose: Infused Cefepime HCl (Maxipime 2000mg) 2,000 mg in 20 mls @ 5 mls/min IV Q8H [facility] Stop: 06/14/24 14:59 Last Admin: 06/10/24 06:38 Dose: 5 mls/min Methylprednisolone 40 mg/ (Syringe) 0.64 mls @ 1.5 mls/min IV Q12 [facility] Stop: 07/09/24 20:59 Last Admin: 06/09/24 20:47 Dose: 1.5 mls/min Isosorbide Mononitrate (Isosorbide [place] Extended Rel 30 Mg Tabcr) 30 mg PO DAILY [facility] Stop: 07/08/24 08:59 Last Admin: 06/09/24 08:37 Dose: 30 mg Magnesium Oxide (Magnesium Oxide 400 Mg Tab) 400 mg PO QAM [facility] Stop: 07/09/24 13:44 Last Admin: 06/09/24 14:08 Dose: 400 mg Nitroglycerin (Nitroglycerin Sl 0.4 Mg/Tab Tab) 0.4 mg SL Q5M PRN PRN Reason: Chest Pain Stop: 07/08/24 00:34 Oxycodone HCl (Oxycodone Hcl Ir 5 Mg Tab (Immediate Release)) 5 mg PO TID PRN PRN Reason: Pain Stop: 06/22/24 00:34 Polyethylene Glycol (Polyethylene (Miralax) 17 Gm Pack) 17 gm PO DAILY PRN PRN Reason: Constipation Stop: 07/08/24 00:34 Sotalol HCl (Sotalol Hcl 80 Mg Tab) 80 mg PO BID [facility] Stop: 07/08/24 08:59 Last Admin: 06/09/24 20:47 Dose: 80 mg Spironolactone (Spironolactone 25 Mg Tab) 25 mg PO DAILY [facility] Stop: 07/08/24 08:59 Last Admin: 06/09/24 08:36 Dose: 25 mg Umeclidinium [place] (Umeclidinium [place] 62.5mcg/Blister 7 Puffs/Inhaler) 1 puffs INH DAILY [facility] Stop: 07/10/24 08:59 Warfarin Sodium (Warfarin Sod 2.5 Mg Tab) 2.5 mg PO [email or web address] [facility] Stop: 07/10/24 15:59 Warfarin Sodium (Warfarin Sod 1.25 Mg Tab) 1.25 mg PO [id number] [facility] Stop: 07/08/24 15:59 Last Admin: 06/09/24 16:01 Dose: 1.25 mg
[2024-06-10] MEDS: UMECLIDINIUM BROMIDE 62.5MCG/BLISTER 7 PUFFS/INHALER INH SCH (11:21)
--- NOTE | 2024-06-10 13:08 | Palliative Care Consultation ---
Date of Consultation June 10, 2024 Assessment & Plan (1) Dyspnea and respiratory abnormalities: (2) Weakness generalized: (3) Advanced care planning/counseling discussion: (4) Palliative care by specialist: Introduced Palliative Medicine and explained our role in management of patient's symptoms and navigation of care at end of life. Patient and/or family were receptive to palliative services for goals of care discussions. Reviewed we are different from hospice, a home health nurse visiting service. Plan Progressive COPD and pulmonary hypertension. Met with pt at bedside, no visitors present. We had a long discussion about the irreversible and progressively debilitating nature of COPD and pHTN. Pt shred that she has had a rapid progression of her ROBERT and SOB over past several weeks. She shared that she feels that she is in a cycle of taking her diuretics to manage her swelling and profound SOB when she needs to ambulate to bathroom. She shared that just walking to bathroom wipes her out. We discussed the nature of pulmonary hypertension and the symptoms including fluid retention, dyspnea, weakness and fatigue, and further complications with fluid volume overload. She notes that her inhalers and Nebulizers no longer offer any relief. She shared that the medications are no longer helping and she has had frequent admissions during which she feels some improvement (she attributes to steroids) but then worsens as soon as she gets back home. She states that she has no qualty of life and requested that I help her "get it over with as quickly as possible". We discussed the options of using medications to help relieve the breathlessness and the anxiety such as low-dose liquid morphine, Ativan for anxiety. She shared understanding that she can no longer live independently. We discussed Discussed hospice benefit: an interdisciplinary program offered by nurses, nurses aides, social workers, chaplains and a medical center manager for patients with a terminal condition and a life expectancy of less than 6 months. This is covered by Medicare at 100%/no out of pocket expense to patient and all meds/supplies needed by patient for the reason they are on hospice are paid for/covered by hospice. The goal is assure quality of life of the patient in their home setting (home, [facility], inpatient hospice setting) by providing symptoms management, psychosocial and spiritual support. However, they cannot offer 24 hours care and if the family is unable to provide that care, they will have to consider personal care with out of pocket cost vs. mcc placement. We discussed the goals of hospice as a patient service and the goals of care; we discussed EOL trajectories and transitions flora the emotional impact of realizing mortality as a concrete reality from prior abstract considerations. Pt was reassured that no matter where they are along this trajectory, they are not alone - their medical team will remain by their side through their journey. Discussed the pros/cons of accepting help when especially weakened and distressed by pain-which would also help provide relief/decrease caregiver burden/strain. Pt shared that she would like for us to "just let her " and became insistent that we offer MAID. Attempted to help her understand that we are not in a state where MAID is legal and nothing could be done to hasten her . Encouraged that the best we can offer is comfort and dignity through the dying process in the form of hospice care. Pt request that I continue this conversation when her daughter is present. Plan for continuation of GOC discussiion when family is present at 10am on 06/11/24 History of Present Illness Reason for Consultation: goals of care Requesting Physician: Da Villalba MD Attending Physician: Da Villalba MD History of Present Illness 79-year-old female with past medical history significant for hyperlipidemia, prediabetes, chronic respiratory failure with hypoxia on 3 to 4 L oxygen, COPD, history of lung nodule, paroxysmal atrial fibrillation, chronic diastolic CHF, pulmonary hypertension, hypertension, venous insufficiency, CAD, status post drug-eluting stent to the right coronary artery, QT prolongation , history of bladder mass, history of smoking, comes because of shortness of breath with increasing oxygen requirements over previous 1-2 days. Of note, patient was in the hospital in first week of May 2024 with acute COPD exacerbation and is followed with pulmonary. Per pulmonary notes: "Severe centrilobular and paraseptal emphysema appreciated bilaterally, Left upper lobe apical nodularity 2.4 cm (increased in size compared to 01/26, new compared to 10/2018)". Pt has previous PET scan findings s/f metastasis and refused diagnostic workup or oncology evaluation or radiation therapy. Currently pt is listed as "Conditional Code" and refusing mechanical ventilation or BiPAP support despite increasing oxygen demands. Allergies Allergy/AdvReac Type Severity Reaction Status Date / Time dog dander Allergy Severe congestion, Verified 05/17/24 14:11 SOB valsartan Allergy Severe Edema Verified 05/17/24 14:11 face/lips/tongue. levofloxacin [From Levaquin] Allergy Intermediate ITCHY Verified 05/17/24 14:11 HIVES ON TRUNK AND LEGS nickel Allergy Mild Rash. Verified 05/17/24 14:11 NAI Inhibitors AdvReac Intermediate Cough. Verified 05/17/24 14:11 influenza virus vaccine ts AdvReac Intermediate SINUS Verified 05/17/24 14:11 [id number] (36 mos,up) PRESSURE/DRAINAGE [From Fluarix] Home Medications Medication Instructions Recorded Confirmed Type albuterol sulfate 2.5 mg/3 mL 2.5 mg continuous nebulization Q4H 06/07/24 06/07/24 History (0.083 %) solution for nebulization PRN sob albuterol sulfate 90 mcg/actuation 2 puff inhalation Q4H PRN 06/07/24 06/07/24 History aerosol inhaler Shortness Of Breath Or Wheezing aspirin 81 mg tablet,delayed 81 mg PO DAILY 06/07/24 06/07/24 History release azelastine 137 mcg (0.1 %) nasal 1 spray intranasal BID 06/07/24 06/07/24 History spray budesonide 160 mcg-glycopyr 9 2 inh inhalation BID 06/07/24 06/07/24 History mcg-formot 4.8 mcg/actuation HFA inhaler (Breztri Aerosphere) furosemide 20 mg tablet 40 mg PO DAILY 06/07/24 06/07/24 History isosorbide mononitrate 30 mg 30 mg PO DAILY 06/07/24 06/07/24 History tablet,extended release 24 hr nitroglycerin 0.4 mg sublingual 0.4 mg sublingual UD PRN Chest Pain 06/07/24 06/07/24 History tablet oxycodone 5 mg tablet 5 mg PO TID PRN Pain 06/07/24 06/07/24 History sotalol 80 mg tablet 80 mg PO BID 06/07/24 06/07/24 History spironolactone 25 mg tablet 25 mg PO DAILY 06/07/24 06/07/24 History warfarin 2.5 mg tablet 2.5 mg PO UD 06/07/24 06/07/24 History Patient History Medical History Chronic diastolic (congestive) heart failure Tobacco abuse CAD (coronary artery disease), [place] coronary artery Hypertension Emphysema of lung Surgical History S/P right coronary artery (RCA) stent placement H/O: hysterectomy S/P appendectomy Family History Other Colon cancer Social History Smoking Status: Former smoker Tobacco Type: Cigarettes Cigarettes Per Day: smokes occasionally, some days doesn't smoke, other days smokes 3-5 cigs; Second Hand Exposure: No; Do You Dip or Chew Tobacco: No; Hx Alcohol Use: Yes Alcohol type: wine Alcohol Intake Frequency Comment: 1 glass of wine 3-5 days per week Hx Substance Use: No Preferred Language: Macedonian Communication Ability: Effective Visual Impairment: Limited Hearing Ability: Normal Restaurant Area Manager Required: No Beliefs That Will Affect Care: None marital status: / Current Living Situation: Alone How many Children do You have: 2 Feels Safe at Home: Yes Diet: regular caffeine: Yes during the past year weight has: decreased > 10 lbs Assistive Devices: Oxygen - Continuous Review of Systems 2 Constitutional: + malaise, + weakness and + insomnia Respiratory: + cough, + dyspnea, + dyspnea on exertio n and + sputum production Physical Exam Constitutional: + cachectic and + frail appearing Eyes: PERRL, conjunctivae normal, anicteric sclerae Neck: trachea midline, no thyromegaly Respiratory: + respiratory distress, + labored breath ing, + uses accessory muscles, + prolonged expiratory phase, + nasal flaring and + tripod positioning Cardiovascular: Rate/Rhythm: + tachycardic and + irregularly irregular Musculoskeletal: generalized weakness Skin: no rashes, warm and dry + pallor Neurologic: PERRL, EOMI, accommodation nl, no face palsy, no dysarthria Psychiatric: Orientation: alert and oriented x 3 Eye Contact: good eye contact Mood: + irritable mood Results & Data Vital Signs (Past 12 Hours) Vital Signs Temp Pulse Pulse Resp BP Pulse Ox O2 Del Method 06/10/24 11:46 Nasal Cannula 06/10/24 11:11 78 20 99 Nasal Cannula 06/10/24 10:28 36.4 C L 68 17 138/74 96 Nasal Cannula 06/10/24 10:00 56 L 06/10/24 08:04 68 16 97 Nasal Cannula 06/10/24 07:39 36.6 C 57 L 16 145/79 H 95 Nasal Cannula 06/10/24 03:54 36.7 C 62 16 148/70 H 95 Nasal Cannula O2 Flow Rate 06/10/24 11:46 06/10/24 11:11 3 06/10/24 10:28 4 06/10/24 10:00 06/10/24 08:04 2 06/10/24 07:39 4 06/10/24 03:54 4 Laboratory Results Abnormal lab results 06/08/24 06/10/24 Range/Units 11:42 06:06 WBC 19.06 H (4.8-10.8) K/ul RBC 3.76 L (4.20-5.40) M/uL Hgb 11.2 L (12.0-16.0) g/dl Hct 34.1 L (37.0-47.0) % PT 18.2 H (9.0-12.0) Seconds INR 1.8 H (0.9-1.1) POC pH 7.50 H (7.35-7.45) POC pO2 68 L (80-95) mmHg POC HCO3 32 H (19-24) petros/L POC Total CO2 33 H (24-31) mmol/L POC Base Excess 8.0 H (-9-1.8) petros/L POC Sodium 131 L (135-144) mmol/L Chloride 97 L (98-107) mmol/L Carbon Dioxide 34 H (21-32) mmol/L BUN 36 H (6-23) mg/dl BUN/Creatinine Ratio 47.4 H (10-20) Glucose 147 H (70-99(Fasting)) mg/dl Diagnostic Findings Chest X-Ray 06/07/24 19:41 Exam(s): XR CXR 1 VIEW EXAM: XR Chest, 1 View CLINICAL HISTORY: Shortness of breath. TECHNIQUE: Frontal view of the chest. COMPARISON: Chest radiograph 05/03/2024 FINDINGS: Lungs: Bilateral airspace opacities are present. Pleural space: Small bilateral pleural effusions. No pneumothorax. Heart: Upper limits of normal cardiac silhouette. Mediastinum: Unremarkable. Normal mediastinal contour. Bones/joints: There are degenerative changes of the spine. No acute fracture. IMPRESSION: 1. Bilateral airspace opacities may represent pulmonary edema and/or atypical infection. 2. Small bilateral pleural effusions. Electronically signed by: Rachel Mcgovern MD 06/08/24 00:16 AM Medications Administered Current Inpatient Medications Acetaminophen (Acetaminophen 325 Mg Tab) 650 mg PO Q6H PRN PRN Reason: Pain or Fever Stop: 07/08/24 00:34 Albuterol (Albuterol Hfa 8 Gm Inhaler) 2 puffs INH Q4H PRN PRN Reason: Shortness Of Breath Or Wheezin Stop: 07/08/24 00:34 Last Admin: 06/10/24 15:12 Dose: 2 puffs Albuterol (Albut/Ipratrop 3mg/0.5mg Neb 3 Ml Vial) 3 ml NEB Q4H PRN; Protocol PRN Reason: Shortness Of Breath Or Wheezing Stop: 07/08/24 00:34 Last Admin: 06/08/24 19:52 Dose: 3 ml Aspirin (Aspirin 81 Mg Ectab) 81 mg PO DAILY [facility] Stop: 07/08/24 08:59 Last Admin: 06/10/24 09:57 Dose: 81 mg Azelastine HCl (Azelastine Hcl 0.1% Nasal 200 Sprays/27,400 Mcg Btl) 1 sprays NA BID [facility] Stop: 07/08/24 08:59 Last Admin: 06/10/24 20:17 Dose: 1 sprays Budesonide (Budesonide 0.5 Mg/2 Ml Vial (Pulmicort)) 0.5 mg NEB BIDR [facility] Stop: 07/09/24 18:59 Last Admin: 06/10/24 21:08 Dose: Not Given Formoterol Fumarate (Formoterol 20 Mcg/2 Ml Vial) 20 mcg INH BIDR [facility] Stop: 07/09/24 18:59 Last Admin: 06/10/24 21:08 Dose: Not Given Furosemide (Furosemide 40 Mg/4 Ml Vial) 40 mg IV DAILY [facility] Stop: 07/08/24 08:59 Last Admin: 06/10/24 10:08 Dose: 40 mg Cefepime HCl (Maxipime 2000mg) 2,000 mg in 20 mls @ 5 mls/min IV Q8H [facility] Stop: 06/14/24 14:59 Last Admin: 06/10/24 22:03 Dose: 5 mls/min Doxycycline Hyclate 100 mg/ (Dextrose) 100 mls @ 50 mls/hr IV Q12H [facility] Stop: 06/15/24 15:29 Last Infusion: 06/10/24 19:52 Dose: Infused Isosorbide Mononitrate (Isosorbide [place] Extended Rel 30 Mg Tabcr) 30 mg PO DAILY [facility] Stop: 07/08/24 08:59 Last Admin: 06/10/24 09:58 Dose: 30 mg Magnesium Oxide (Magnesium Oxide 400 Mg Tab) 400 mg PO QAM [facility] Stop: 07/09/24 13:44 Last Admin: 06/10/24 10:00 Dose: 400 mg Nitroglycerin (Nitroglycerin Sl 0.4 Mg/Tab Tab) 0.4 mg SL Q5M PRN PRN Reason: Chest Pain Stop: 07/08/24 00:34 Oxycodone HCl (Oxycodone Hcl Ir 5 Mg Tab (Immediate Release)) 5 mg PO TID PRN PRN Reason: Pain Stop: 06/22/24 00:34 Last Admin: 06/10/24 20:17 Dose: 5 mg Polyethylene Glycol (Polyethylene (Miralax) 17 Gm Pack) 17 gm PO DAILY PRN PRN Reason: Constipation Stop: 07/08/24 00:34 Prednisone (Prednisone 20 Mg Tab) 20 mg PO DAILY [facility] Stop: 06/12/24 09:01 Last Admin: 06/10/24 14:29 Dose: 20 mg Sotalol HCl (Sotalol Hcl 80 Mg Tab) 80 mg PO BID [facility] Stop: 07/08/24 08:59 Last Admin: 06/10/24 20:17 Dose: 80 mg Spironolactone (Spironolactone 25 Mg Tab) 25 mg PO DAILY [facility] Stop: 07/08/24 08:59 Last Admin: 06/10/24 09:59 Dose: 25 mg Umeclidinium [place] (Umeclidinium [place] 62.5mcg/Blister 7 Puffs/Inhaler) 1 puffs INH DAILY [facility] Stop: 07/10/24 08:59 Last Admin: 06/10/24 11:21 Dose: 1 puffs Warfarin Sodium (Warfarin Sod 2.5 Mg Tab) 2.5 mg PO [email or web address] [facility] Stop: 07/10/24 15:59 Last Admin: 06/10/24 17:17 Dose: 2.5 mg Warfarin Sodium (Warfarin Sod 1.25 Mg Tab) 1.25 mg PO [email or web address] [facility] Stop: 07/08/24 15:59 Last Admin: 06/09/24 16:01 Dose: 1.25 mg PG Care Time/CCT Total # of Minutes Spent Total Time Spent with Patient: Total time spent is greater than 50% in coordination of care (as documented) at patient's floor/unit and/or counseling patient: Advanced Care Planning 71003 Advanced Care Planning 30 Min [place] [address] IN/OBS CONSULT LVL 2,35M Patient Type Established History Expanded Problem Focused Exam Expanded Problem Focused Medical Decision Making Moderate Complexity Diagnoses Dyspnea and respiratory abnormalities R06.00; R06.89 Weakness generalized R53.1 Advanced care planning/counseling discussion Z71.89 Palliative care by specialist Z51.5 Additional Codes Advanced Care Planning - 43814 Advanced Care Planning 30 Min: 93255 Advanced Care Planning 30 Min ([id number])
--- NOTE | 2024-06-10 13:41 | Pulmonology Progress Note ---
Date of Service June 10, 2024 Assessment & Plan (1) (HFpEF) heart failure with preserved ejection fraction: (2) Acute exacerbation of chronic obstructive pulmonary disease (COPD): (3) End stage COPD: (4) Pulmonary hypertension: (5) Cor pulmonale: (6) Acute and chronic respiratory failure with hypoxia: Plan Impression: 79-year-old female with advanced COPD and chronic hypoxemic respiratory failure as well as enlarging spiculated pulmonary nodule suspicious for malignancy admitted with exacerbation. Recommendations: 1. Acute exacerbation of COPD. Responding favorably. Okay to transition to oral prednisone for an additional 3 days. Doxycycline should be adequate therapy. Can discontinue cefepime. 2. Enlarging lung mass: Represents malignancy until proven otherwise. The patient has expressed a desire to not pursue any therapy diagnostics or additional evaluation at this point time. Given her expressed desires, seems very reasonable to engage palliative care and consider hospice. Advised the patient that life expectancy with untreated cancer would potentially be measured in months. She expressed understanding and states that her daughter will deal with it. 3. Hypoxemic respiratory failure: Patient is at her stable oxygen requirement. Continue oxygen saturations to maintain sat of 89 to 90% Patient appears to be back to her pulmonary baseline. At discharge she can go back to the [facility] or continue to use nebulized budesonide and Perforomist. She can follow-up with her outpatient pulmonary group through [facility]. Pulmonary will sign off. Feel free to contact us with questions or concerns Admission and Anticipated Discharge Date Admission Date: June 07, 2024 Subjective Patient seen and examined. EMR reviewed. Discussed with off going electronic news gathering editor. Patient reports that she is doing somewhat better. She continues to have good days and bad days. She will occasionally cough and produce some clear white phlegm. She is not wheezing. She is back to her baseline oxygen requirement. Review of Systems 2 Review of Systems: All systems reviewed & are unremarkable except as noted in Subjective Physical Exam 2 Physical Exam: General: Cachectic in appearance, chronically ill in appearance Eyes: conjunctiva are pink and non-injected, sclera clear Neck: normal jugular venous pulse, no hepatojugular reflux Chest: normal shape and normal respiratory effort Lungs:Mildly decreased breath sounds at the bases Cardiac Exam: - regular heart sounds, no murmurs, rubs, or gallops, no jugular venous distention Abdomen: abdomen soft, non-tender, no abnormal masses and no hepatosplenomegaly Musculoskeletal: no gait disturbance, no weakness Extremities: Trace to 1+ bilateral lower extremity edema Neuro:awake, conversant, follows commands, no focal motor deficits Results & Data Results & Data Vital Signs (Past 12 Hours) Vital Signs Temp Pulse Pulse Resp BP Pulse Ox O2 Del Method 06/10/24 11:46 Nasal Cannula 06/10/24 11:11 78 20 99 Nasal Cannula 06/10/24 10:28 36.4 C L 68 17 138/74 96 Nasal Cannula 06/10/24 10:00 56 L 06/10/24 08:04 68 16 97 Nasal Cannula 06/10/24 07:39 36.6 C 57 L 16 145/79 H 95 Nasal Cannula 06/10/24 03:54 36.7 C 62 16 148/70 H 95 Nasal Cannula O2 Flow Rate 06/10/24 11:46 06/10/24 11:11 3 06/10/24 10:28 4 06/10/24 10:00 06/10/24 08:04 2 06/10/24 07:39 4 06/10/24 03:54 4 Laboratory Results 06/10/24 06:06 06/10/24 06:06 Diagnostic Findings No new imaging PG Care Time/CCT Total # of Minutes Spent Total Time Spent with Patient: Total time spent is greater than 50% in coordination of care (as documented) at patient's floor/unit and/or counseling patient: Coding Level of Care Code 16777 SUB INP/OBS CARE 2/35MIN Diagnoses (HFpEF) heart failure with preserved ejection fraction I50.30 Acute exacerbation of chronic obstructive pulmonary disease (COPD) J44.1 End stage COPD J44.9 Pulmonary hypertension I27.20 Cor pulmonale I27.81 Acute and chronic respiratory failure with hypoxia J96.21
[2024-06-10] MEDS: predniSONE 20 MG TAB PO SCH (14:29)
[2024-06-10] MEDS: ALBUTEROL HFA 8 GM INHALER INH PRN (15:12)
[2024-06-10] MEDS: DOXYCYCLINE HYCLATE 100 MG in DEXTROSE 5% MINI-B 100 ML IV SCH (17:15)
[2024-06-10] MEDS: WARFARIN SOD 2.5 MG TAB PO SCH (17:17)
[2024-06-10] MEDS: DOXYCYCLINE HYCLATE 100 MG CAP PO SCH (17:21)
[2024-06-10] MEDS: oxyCODONE HCL IR 5 MG TAB (IMMEDIATE RELEASE) PO PRN (20:17)
[2024-06-11 06:44] LABS: Hematocrit (blood only) 34.6 % (37.0-47.0); Hemoglobin 11.5 g/dl (12.0-16.0); Mean Corpuscular Hemoglobin 30.3 pg (25.0-34.0); Mean Corpuscular Hgb Conc 33.2 g/dL (32.0-36.0); Mean Corpuscular Volume 91.1 fL (80.0-100.0); Mean Platelet Volume 10.2 fL (9.4-12.4); Platelet Count 308 K/uL (130-400); RDW Coefficient of Variation 12.8 % (11.5-14.5); RDW Standard Deviation 42.4 fL (36.4-46.3); White Blood Count 17.51 K/ul (4.8-10.8)
[2024-06-11 06:56] LABS: BUN Creatinine Ratio 57.9 (10-20); Calcium 8.5 mg/dl (8.6-10.3); Creatinine Clr Calc Pharmacy 54.3 ml/min; Magnesium 1.8 mg/dl (1.7-2.4); Potassium 4.3 mmol/L (3.5-5.1)
[2024-06-11 07:00] LABS: INR 1.6 (0.9-1.1)
--- NOTE | 2024-06-11 11:04 | Palliative Family Discussion ---
Date of Service June 11, 2024 Patient Directed Conference Time of Meetin:00-10:40 Participants:Tiffany Downs AGACNP Patient participation: YES Patient Support System: DTR Jo Anndebra Grant Other Healthcare Provider Participation: None Meeting Location: pt room Advanced Directive available: Yes If yes, descriptors: The patient's surrogate medical decision maker participated: ues Legally authorized health care proxy: dtr Jo Ann Mohamud Other surrogate: n/a A family meeting was held for CAMILA Harrington ANNA. This meeting was necessary for determining the appropriate course of treatment. Topics of Discussion Topics of Discussion: 1. goals of care 2. COPD disease progress 3. Comfort directed care Other Content of Meetin. Opportunity given for participants to speak and ask questions. 2. Participants were assured of attention to patient comfort. 3. Reassurance provided. 4. Support was provided for informed, good-anjana decisions. 5. Emotions expressed by family were acknowledged and addressed. 6. Follow-up Outpatient: n/a 7. Plan of Care: Pt request time to consider SUPERVISOR ESTIMATOR AND DRAFTER, she does not wish to go back home so would require SNF placement with hospice if she does not qualify for GIP. Met with pt and her daughter Jo Ann at bedside. We again discussed the nature of pulmonary hypertension and the symptoms including fluid retention, dyspnea, weakness and fatigue, and further complications with fluid volume overload. She notes that her inhalers and Nebulizers no longer offer any relief. She shared that the medications are no longer helping and she has had frequent admissions during which she feels some improvement (she attributes to steroids) but then worsens as soon as she gets back home. Jo Ann concurred that the pt is seeing no benefit from medications taken for COPD symptom management at home and even aggressive treatments during hospitalization only offer short term relief. Pt shared understanding that she can no longer live independently and expressed sadness that she feels she is "never going back home, even for a day". Expressed concern that at this late stage of her disease process it she will likely continue to have increasing oxygen requirements and worsening SOB/ROBERT that will become refractory to current treatments. Pt reinforced her desire to not have noninvasive mechanical ventilation, DNR/DNI and no face mask of any type. We again discussed options of continuing on current course of life prolonging treatments and symptom relief vs. comfort directed approach to care. Discussed hospice benefit: an interdisciplinary program offered by nurses, nurses aides, social workers, chaplains and a medical billing service for patients with a terminal condition and a life expectancy of less than 6 months. This is covered by Medicare at 100%/no out of pocket expense to patient and all meds/supplies needed by patient for the reason they are on hospice are paid for/covered by hospice. The goal is assure quality of life of the patient in their home setting (home, [facility], inpatient hospice setting) by providing symptoms management, psychosocial and spiritual support. However, they cannot offer 24 hours care and if the family is unable to provide that care, they will have to consider personal care with out of pocket cost vs. chcf placement. We discussed the goals of hospice as a patient service and the goals of care; we discussed EOL trajectories and transitions flora the emotional impact of realizing mortality as a concrete reality from prior abstract considerations. Pt was reassured that no matter where they are along this trajectory, they are not alone - their medical team will remain by their side through their journey. Discussed the pros/cons of accepting help when especially weakened and distressed by pain-which would also help provide relief/decrease caregiver burden/strain. Pt asserted that she does not want hospice, but does want to change to comfort care "just not right now". She shared that she has had very negative experience with discussed hospice and would not want them involved in her care. Pt and her daughter requested time to discuss and plan to transition to SUPERVISOR ESTIMATOR AND DRAFTER in next few days. Plan made to meet with pt again in morning to revisit [facility]. Time Involved in Meeting: I spent 70 minutes overall addressing this case: 10 in medical data review/discussion with referring provider(s) and/or preparation for the visit 40 in direct interaction with the patient 40 Advance Care Planning/Goals of Care discussions as detailed above in note (must be >16min) 10 in subsequent review and synthesis of assessment and plan 10 in communicating with other providers regarding the patient's case: GUERRERO thomas attending team
--- NOTE | 2024-06-11 17:41 | Hospitalist Progress Note ---
Date of Service June 11, 2024 Assessment & Plan (1) Acute and chronic respiratory failure with hypoxia: Plan: 79-year-old female with past medical history significant for hyperlipidemia, prediabetes, chronic respiratory failure with hypoxia on 3 to 4 L oxygen, COPD, history of lung nodule, paroxysmal atrial fibrillation, chronic diastolic CHF, pulmonary hypertension, hypertension, venous insufficiency, CAD, status post drug-eluting stent to the right coronary artery, QT prolongation , history of bladder mass, history of smoking, comes because of shortness of breath with increasing oxygen requirements. Patient's was feeling short of breath since evening. Has chronic cough. Denies any fevers. No runny nose or sore throat. No headache. Denies any chest pain. No nausea. No abdominal pain. Somewhat constipated. Denies any blood in the stools. Micturating okay. Currently on high flow oxygen saturating okay. Patient was in the hospital in first week of May 2024 with acute COPD exacerbation. Patient followed with pulmonary on 05/20/2024. Pulmonary seems to discussed about the left upper lobe findings and PET scan findings and patient does not want a diagnostic workup or oncology evaluation or radiation therapy per pulmonary notes. Acute on chronic respiratory failure with hypoxia Acute COPD exacerbation Acute diastolic CHF Patient chronically on 3 to 4 L oxygen at home Requiring high flow on admission Chest x-ray pulmonary congestion versus atypical infection Diminished breath sounds IV Solu-Medrol 40 mg 3 times daily, nebs [id number] and as needed IV Lasix 40 mg daily and continue spironolactone echo obtained Empiric antibiotics IV Rocephin and doxycycline -> switched to cefepime given sputum cultx posit. for pseudomonas procalcitonin negative Pulmonary and cardiology consulted - cont. diuretics, abx, nebulized bronchodilators. palliative med. consult Close monitor History of CAD status post drug-eluting stent to right coronary artery On aspirin, Imdur and Coumadin History of paroxysmal atrial fibrillation On sotalol and Coumadin and INR 2.4 Will follow PT/INR Chronic lower extremity edema On diuretics Left lower extremity wound From hematoma Follows with wound care Wound care Left lung nodule Refused workup Follow History of prediabetes HbA1c 6.1 on 05/04/2024 DVT prophylaxis On Coumadin Will follow PT/INR Admission and Anticipated Discharge Date Admission Date: June 07, 2024 Subjective Pt seen in follow up of acute on chronic hypoxic resp. failure Cardiology and pulm. medicine consulted Pt is sitting up in chair in NAD feels improved since coming to the hospital. No chest pain , no abd. pain, no fever, chills + cough reports exhaustion/ shortness of breath with any minimal movement palliative med also consulted Review of Systems Review of Systems: All systems reviewed & are unremarkable except as noted in Subjective Physical Exam Physical Exam: General - thin elderly, chronically ill appearing F in NAD, on suppl. O2 Head- atraumatic Eyes- PERRL. Neck- supple Lungs- B/L diminished breath sounds, mild exp. wheezing Heart- regular rhythm; no murmur Abdomen- normal bowel sounds, soft, nontender, no distension Extremities- b/l lower extremity edema much improved. wound seen on left leg posterior aspect in calf region- no erythema or drainage seen Neuro- alert, oriented PERRL, no facial palsy; no dysarthria; moves extremities Results & Data Results & Data Vital Signs (Past 12 Hours) Vital Signs Temp Pulse Pulse Resp BP Pulse Ox O2 Del Method 06/11/24 16:51 17 Nasal Cannula 06/11/24 15:23 36.7 C 67 17 137/73 97 Nasal Cannula 06/11/24 11:01 36.4 C L 65 17 130/68 91 Nasal Cannula 06/11/24 09:00 54 L 06/11/24 09:00 Nasal Cannula 06/11/24 07:42 36.3 C L 53 L 18 148/60 H 100 Nasal Cannula 06/11/24 07:31 70 18 96 Nasal Cannula O2 Flow Rate 06/11/24 16:51 3 06/11/24 15:23 4 06/11/24 11:01 4 06/11/24 09:00 06/11/24 09:00 06/11/24 07:42 4 06/11/24 07:31 3 Laboratory Results 06/11/24 Range/Units 06:00 WBC 17.51 H (4.8-10.8) K/ul RBC 3.80 L (4.20-5.40) M/uL Hgb 11.5 L (12.0-16.0) g/dl Hct 34.6 L (37.0-47.0) % MCV 91.1 (80.0-100.0) fL MCH 30.3 (25.0-34.0) pg MCHC 33.2 (32.0-36.0) g/dL RDW Std Deviation 42.4 (36.4-46.3) fL RDW Coeff of Anais 12.8 (11.5-14.5) % Plt Count 308 (130-400) K/uL MPV 10.2 (9.4-12.4) fL PT 17.0 H (9.0-12.0) Seconds INR 1.6 H (0.9-1.1) Sodium 136 (136-145) mmol/L Potassium 4.3 (3.5-5.1) mmol/L Chloride 96 L (98-107) mmol/L Carbon Dioxide 35 H (21-32) mmol/L Anion Gap 5 (3-11) BUN 44 H (6-23) mg/dl Creatinine 0.76 (0.6-1.2) mg/dl Est Cr Clr Drug Dosing 54.3 ml/min eGFR 78.67 BUN/Creatinine Ratio 57.9 H (10-20) Glucose 161 H (70-99(Fasting)) mg/dl Calcium 8.5 L (8.6-10.3) mg/dl Phosphorus 3.0 (2.5-4.9) mg/dl Magnesium 1.8 (1.7-2.4) mg/dl Medications Administered Current Inpatient Medications Acetaminophen (Acetaminophen 325 Mg Tab) 650 mg PO Q6H PRN PRN Reason: Pain or Fever Stop: 07/08/24 00:34 Albuterol (Albuterol Hfa 8 Gm Inhaler) 2 puffs INH Q4H PRN PRN Reason: Shortness Of Breath Or Wheezin Stop: 07/08/24 00:34 Last Admin: 06/11/24 16:51 Dose: 2 puffs Albuterol (Albut/Ipratrop 3mg/0.5mg Neb 3 Ml Vial) 3 ml NEB Q4H PRN; Protocol PRN Reason: Shortness Of Breath Or Wheezing Stop: 07/08/24 00:34 Last Admin: 06/08/24 19:52 Dose: 3 ml Aspirin (Aspirin 81 Mg Ectab) 81 mg PO DAILY [facility] Stop: 07/08/24 08:59 Last Admin: 06/11/24 08:26 Dose: 81 mg Azelastine HCl (Azelastine Hcl 0.1% Nasal 200 Sprays/27,400 Mcg Btl) 1 sprays NA BID [facility] Stop: 07/08/24 08:59 Last Admin: 06/11/24 08:29 Dose: Not Given Budesonide (Budesonide 0.5 Mg/2 Ml Vial (Pulmicort)) 0.5 mg NEB BIDR [facility] Stop: 07/09/24 18:59 Last Admin: 06/11/24 07:31 Dose: 0.5 mg Formoterol Fumarate (Formoterol 20 Mcg/2 Ml Vial) 20 mcg INH BIDR [facility] Stop: 07/09/24 18:59 Last Admin: 06/11/24 07:31 Dose: 20 mcg Furosemide (Furosemide 40 Mg/4 Ml Vial) 40 mg IV DAILY [facility] Stop: 07/08/24 08:59 Last Admin: 06/11/24 08:29 Dose: 40 mg Doxycycline Hyclate 100 mg/ (Dextrose) 100 mls @ 50 mls/hr IV Q12H [facility] Stop: 06/15/24 15:29 Last Admin: 06/11/24 15:17 Dose: 50 mls/hr Cefepime HCl (Maxipime 2000mg) 2,000 mg in 20 mls @ 5 mls/min IV Q12H [facility] Stop: 06/14/24 18:59 Isosorbide Mononitrate (Isosorbide [place] Extended Rel 30 Mg Tabcr) 30 mg PO DAILY [facility] Stop: 07/08/24 08:59 Last Admin: 06/11/24 08:27 Dose: 30 mg Magnesium Oxide (Magnesium Oxide 400 Mg Tab) 400 mg PO QAM [facility] Stop: 07/09/24 13:44 Last Admin: 06/11/24 08:27 Dose: 400 mg Nitroglycerin (Nitroglycerin Sl 0.4 Mg/Tab Tab) 0.4 mg SL Q5M PRN PRN Reason: Chest Pain Stop: 07/08/24 00:34 Oxycodone HCl (Oxycodone Hcl Ir 5 Mg Tab (Immediate Release)) 5 mg PO TID PRN PRN Reason: Pain Stop: 06/22/24 00:34 Last Admin: 06/11/24 16:36 Dose: 5 mg Polyethylene Glycol (Polyethylene (Miralax) 17 Gm Pack) 17 gm PO DAILY PRN PRN Reason: Constipation Stop: 07/08/24 00:34 Prednisone (Prednisone 20 Mg Tab) 20 mg PO DAILY [facility] Stop: 06/12/24 09:01 Last Admin: 06/11/24 08:27 Dose: 20 mg Sotalol HCl (Sotalol Hcl 80 Mg Tab) 80 mg PO BID [facility] Stop: 07/08/24 08:59 Last Admin: 06/11/24 08:29 Dose: Not Given Spironolactone (Spironolactone 25 Mg Tab) 25 mg PO DAILY [facility] Stop: 07/08/24 08:59 Last Admin: 06/11/24 08:30 Dose: 25 mg Umeclidinium [place] (Umeclidinium [place] 62.5mcg/Blister 7 Puffs/Inhaler) 1 puffs INH DAILY [facility] Stop: 07/10/24 08:59 Last Admin: 06/11/24 08:30 Dose: 1 puffs Warfarin Sodium (Warfarin Sod 2.5 Mg Tab) 2.5 mg PO [email or web address] [facility] Stop: 07/10/24 15:59 Last Admin: 06/10/24 17:17 Dose: 2.5 mg Warfarin Sodium (Warfarin Sod 1.25 Mg Tab) 1.25 mg PO [email or web address] [facility] Stop: 07/08/24 15:59 Last Admin: 06/11/24 15:21 Dose: 1.25 mg
[2024-06-11] MEDS: CEFEPIME 2000MG 2,000 MG/20 ML SYR IV SCH (20:58)
[2024-06-12 03:57] VITALS: TEMP 97.9
[2024-06-12 06:23] LABS: Hemoglobin 11.6 g/dl (12.0-16.0); Mean Corpuscular Hemoglobin 29.2 pg (25.0-34.0); Mean Corpuscular Hgb Conc 32.2 g/dL (32.0-36.0); Mean Corpuscular Volume 90.7 fL (80.0-100.0); Mean Platelet Volume 9.9 fL (9.4-12.4); Platelet Count 274 K/uL (130-400); RDW Coefficient of Variation 12.8 % (11.5-14.5); RDW Standard Deviation 42.4 fL (36.4-46.3); Red Blood Count 3.97 M/uL (4.20-5.40); White Blood Count 16.03 K/ul (4.8-10.8)
[2024-06-12 06:41] LABS: BUN Creatinine Ratio 54.8 (10-20); Calcium 8.4 mg/dl (8.6-10.3); Creatinine Clr Calc Pharmacy 56.6 ml/min; Magnesium 1.9 mg/dl (1.7-2.4); Phosphorus 2.3 mg/dl (2.5-4.9); Potassium 4.5 mmol/L (3.5-5.1)
[2024-06-12 06:52] LABS: INR 2.3 (0.9-1.1); Prothrombin Time 23.3 Seconds (9.0-12.0)
[2024-06-12 07:24] VITALS: BP 139/69; PULSE 53; RESP 19; O2SAT 99
[2024-06-12] MEDS ORDERED: HALOPERIDOL ORAL SOLN 2 MG/ML PO PRN ×2 (10:08)
[2024-06-12] MEDS: LIDOCAINE 5% 1 PATCH TD STA (11:32)
[2024-06-12] MEDS ORDERED: POT PHOSPHATE MONOBASIC W/ SOD TAB PO SCH (13:00)
--- NOTE | 2024-06-12 13:17 | Hospitalist Progress Note ---
Date of Service June 12, 2024 Assessment & Plan (1) Acute and chronic respiratory failure with hypoxia: Plan: 79-year-old female with past medical history significant for hyperlipidemia, prediabetes, chronic respiratory failure with hypoxia on 3 to 4 L oxygen, COPD, history of lung nodule, paroxysmal atrial fibrillation, chronic diastolic CHF, pulmonary hypertension, hypertension, venous insufficiency, CAD, status post drug-eluting stent to the right coronary artery, QT prolongation , history of bladder mass, history of smoking, comes because of shortness of breath with increasing oxygen requirements. Patient's was feeling short of breath since evening. Pt met with Palliative Care on 06/12/24 and was agreeable to TABLE RUNNER at that time. She was previously treated as follows: Acute on chronic respiratory failure with hypoxia Acute COPD exacerbation Acute diastolic CHF Patient chronically on 3 to 4 L oxygen at home Requiring high flow on admission Chest x-ray pulmonary congestion versus atypical infection Diminished breath sounds IV Solu-Medrol 40 mg 3 times daily, nebs [id number] and as needed IV Lasix 40 mg daily and continue spironolactone echo obtained Empiric antibiotics IV Rocephin and doxycycline -> switched to cefepime given sputum cultx posit. for pseudomonas procalcitonin negative Pulmonary and cardiology consulted - cont. diuretics, abx, nebulized bronchodilators. palliative med. consult Close monitor History of CAD status post drug-eluting stent to right coronary artery On aspirin, Imdur and Coumadin History of paroxysmal atrial fibrillation On sotalol and Coumadin and INR 2.4 Will follow PT/INR Chronic lower extremity edema On diuretics Left lower extremity wound From hematoma Follows with wound care Wound care Left lung nodule Refused workup Follow History of prediabetes HbA1c 6.1 on 05/04/2024 DVT prophylaxis On Coumadin Will follow PT/INR Admission and Anticipated Discharge Date Admission Date: June 07, 2024 Subjective Pt was seen laying in bed Notified by Palliative Care that pt now agreeable to TABLE RUNNER She states that she was not notified that she would be switching rooms to be more comfortable Review of Systems Review of Systems: All systems reviewed & are unremarkable except as noted in Subjective Physical Exam Physical Exam: General: Alert, oriented. No acute distress Psych: agitated mood and affect HEENT: NC/AT Resp: no increased effort of breathing Results & Data Results & Data Vital Signs (Past 12 Hours) Vital Signs Temp Pulse Pulse Resp BP Pulse Ox O2 Del Method 06/12/24 07:22 36.6 C 53 L 19 139/69 99 Nasal Cannula 06/12/24 07:07 51 L 06/12/24 07:03 66 06/12/24 07:03 Nasal Cannula 06/12/24 03:37 36.6 C 64 20 165/73 H 93 Nasal Cannula O2 Flow Rate 06/12/24 07:22 4 06/12/24 07:07 06/12/24 07:03 06/12/24 07:03 06/12/24 03:37 4
[2024-06-12] MEDS: MoRPHine SULFATE 10 MG/0.5 ML UDP PO PRN (14:14)
--- NOTE | 2024-06-12 14:57 | Palliative Care Progress Note ---
Date of Service June 12, 2024 Assessment & Plan (1) Palliative care by specialist: Plan: Palliative care will continue to follow for ongoing comfort directed care. (2) Advanced care planning/counseling discussion: Plan: Spoke with pt again today about her quality of life. Pt shared that she feels that she is at a point that she is constantly struggling to breathe and gets no relief from her nebulizers or oral medication. She shared frustration that nothing seems to work long enough for her to even sleep without waking feeling that she cannot breathe. She shared that she no longer wishes to pursue life prolonging therapies and requests transition to comfort directed care at this time. We discussed plans for end of life care, symptom management and comfort medications. She shared that she would "just want to get this over with". Reinforced with that with comfort directed care life prolonging therapies would cease, however nothing could legally be done to hasten . She shared that she would like to have visitation restricted to only her daughter Jo Ann. On pt request, orders placed for comfort care. Discussed with BSRN, CM and attending (3) Encounter for end of life education, guidance and counseling: Plan: Discussed changes pt may move through in the dying process including but not limited to sleeping more, disorientation when awake, restlessness, diminished senses/inability to respond to stimulus although ability to be aware of them remains intact longer, and changes in body temperatures, skin changes/mottling/cyanosis, respiratory pattern changes, and oral secretions. Patient verbalized understanding. Helped the patient understand that our goal is to assure a peaceful . Anticipatory guidance offered and encouraged pt to report any discomfort to her nurse. 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 Nausea/vomitting [] zofran 4mg IVP q4h PRN Agitation [] ativan 0.5mg IVP q4h PRN Hyperactive delirium [] haldol 5mg IVP q6h PRN Secretions - if repositioning not effective [] robinul 0.4mg IV q4h PRN [] atropine SL 3 drops Q1h PRN Nursing care: Discontinue all medications not directed towards comfort. Detether pt from IV tubing, monitor cables, and check vitals once per shift. Please continue HFNC and titrate down as able for patient comfort. Use medications above PRN for dyspnea/tachypnea and do not increase oxygen once titrated down. Assess q1h for pain/dyspnea and treat accordingly. Plan see above Admission and Anticipated Discharge Date Admission Date: June 07, 2024 Subjective Assessed pt a bedside, she is dyspneic and tachypneic with marked respiratory muscles and tripoding. No visitors present. Review of Systems Constitutional: + malaise, + weakness and + insomnia Respiratory: + cough, + dyspnea, + dyspnea on exertio n and + sputum production Physical Exam Constitutional: + cachectic and + frail appearing Eyes: PERRL, conjunctivae normal, anicteric sclerae Neck: trachea midline, no thyromegaly Respiratory: + respiratory distress, + labored breath ing, + uses accessory muscles, + prolonged expiratory phase, + nasal flaring and + tripod positioning Cardiovascular: Rate/Rhythm: + tachycardic and + irregularly irregular Musculoskeletal: generalized weakness Skin: no rashes, warm and dry + pallor Neurologic: PERRL, EOMI, accommodation nl, no face palsy, no dysarthria Psychiatric: Orientation: alert and oriented x 3 Eye Contact: good eye contact Mood: + irritable mood Results & Data Vital Signs (Past 12 Hours) Vital Signs Temp Pulse Pulse Resp BP Pulse Ox O2 Del Method 06/12/24 07:22 36.6 C 53 L 19 139/69 99 Nasal Cannula 06/12/24 07:07 51 L 06/12/24 07:03 66 06/12/24 07:03 Nasal Cannula 06/12/24 03:37 36.6 C 64 20 165/73 H 93 Nasal Cannula O2 Flow Rate 06/12/24 07:22 4 06/12/24 07:07 06/12/24 07:03 06/12/24 07:03 06/12/24 03:37 4 Laboratory Results Abnormal lab results 06/12/24 Range/Units 05:57 WBC 16.03 H (4.8-10.8) K/ul RBC 3.97 L (4.20-5.40) M/uL Hgb 11.6 L (12.0-16.0) g/dl Hct 36.0 L (37.0-47.0) % PT 23.3 H (9.0-12.0) Seconds INR 2.3 H (0.9-1.1) Sodium 135 L (136-145) mmol/L Chloride 96 L (98-107) mmol/L Carbon Dioxide 35 H (21-32) mmol/L BUN 40 H (6-23) mg/dl BUN/Creatinine Ratio 54.8 H (10-20) Glucose 115 H (70-99(Fasting)) mg/dl Calcium 8.4 L (8.6-10.3) mg/dl Phosphorus 2.3 L (2.5-4.9) mg/dl Diagnostic Findings Chest X-Ray 06/07/24 19:41 Exam(s): XR CXR 1 VIEW EXAM: XR Chest, 1 View CLINICAL HISTORY: Shortness of breath. TECHNIQUE: Frontal view of the chest. COMPARISON: Chest radiograph 05/03/2024 FINDINGS: Lungs: Bilateral airspace opacities are present. Pleural space: Small bilateral pleural effusions. No pneumothorax. Heart: Upper limits of normal cardiac silhouette. Mediastinum: Unremarkable. Normal mediastinal contour. Bones/joints: There are degenerative changes of the spine. No acute fracture. IMPRESSION: 1. Bilateral airspace opacities may represent pulmonary edema and/or atypical infection. 2. Small bilateral pleural effusions. Electronically signed by: Rachel Mcgovern MD 06/08/24 00:16 AM Medications Administered Current Inpatient Medications Acetaminophen (Acetaminophen 325 Mg Tab) 650 mg PO Q6H PRN PRN Reason: Pain or Fever Stop: 07/08/24 00:34 Albuterol (Albuterol Hfa 8 Gm Inhaler) 2 puffs INH Q4H PRN PRN Reason: Shortness Of Breath Or Wheezin Stop: 07/08/24 00:34 Last Admin: 06/11/24 16:51 Dose: 2 puffs Albuterol (Albut/Ipratrop 3mg/0.5mg Neb 3 Ml Vial) 3 ml NEB Q4H PRN; Protocol PRN Reason: Shortness Of Breath Or Wheezing Stop: 07/08/24 00:34 Last Admin: 06/08/24 19:52 Dose: 3 ml Atropine Sulfate (Atropine Sulfate 1% Op Soln 5 Ml Btl) 4 drops SL Q1H PRN PRN Reason: Secretions or pulm congestion Stop: 07/12/24 10:07 Furosemide (Furosemide 40 Mg/4 Ml Vial) 40 mg IV DAILY [facility] Stop: 07/08/24 08:59 Last Admin: 06/12/24 11:33 Dose: Not Given Glycopyrrolate (Glycopyrrolate 0.2 Mg/Ml Vial) 0.4 mg IV Q4H PRN PRN Reason: Rattling Secretions or Pulm Congestion Stop: 07/12/24 10:07 Haloperidol (Haloperidol Oral Soln 2 Mg/Ml) 0.5 mg PO Q4H PRN PRN Reason: Nausea &/or Vomiting Stop: 07/12/24 10:07 Haloperidol (Haloperidol Oral Soln 2 Mg/Ml) 0.5 mg PO Q4H PRN PRN Reason: Anxiety/Agitation Stop: 07/12/24 10:07 Lorazepam (Lorazepam 2 Mg/1 Ml Vial) 0.5 mg IV Q4H PRN PRN Reason: Anxiety/Agitation Stop: 07/12/24 10:07 Miscellaneous (Remove Lidoderm Patch) 1 each N/A DAILY@2100 [facility] Stop: 06/12/24 21:01 Morphine Sulfate (Morphine Sulfate 10 Mg/0.5 Ml Udp) 5 mg PO Q30M PRN PRN Reason: discomfort, dyspnea, tachypnea Stop: 06/26/24 10:07 Last Admin: 06/12/24 14:14 Dose: 5 mg Nitroglycerin (Nitroglycerin Sl 0.4 Mg/Tab Tab) 0.4 mg SL Q5M PRN PRN Reason: Chest Pain Stop: 07/08/24 00:34 Ondansetron HCl (Ondansetron Inj 2 Mg/Ml 2 Ml Vial) 4 mg IV Q4H PRN PRN Reason: Nausea &/or Vomiting Stop: 07/12/24 10:07 Polyethylene Glycol (Polyethylene (Miralax) 17 Gm Pack) 17 gm PO DAILY PRN PRN Reason: Constipation Stop: 07/08/24 00:34 Spironolactone (Spironolactone 25 Mg Tab) 25 mg PO DAILY [facility] Stop: 07/08/24 08:59 Last Admin: 06/12/24 11:33 Dose: Not Given PG Care Time/CCT Total # of Minutes Spent Total Time Spent with Patient: Total time spent is greater than 50% in coordination of care (as documented) at patient's floor/unit and/or counseling patient Advanced Care Planning 89603 Advanced Care Planning 30 Min [place] [address] SUB INP/OBS CARE 2/35MIN Patient Type Established History Expanded Problem Focused Exam Expanded Problem Focused Medical Decision Making Moderate Complexity Diagnoses Palliative care by specialist Z51.5 Advanced care planning/counseling discussion Z71.89 Encounter for end of life education, guidance and counseling Need for comfort care Additional Codes Advanced Care Planning - 77547 Advanced Care Planning 30 Min: 66930 Advanced Care Planning 30 Min ([id number])
[2024-06-12] MEDS: ONDANSETRON INJ 2 MG/ML 2 ML VIAL IV PRN (19:37)
[2024-06-12] MEDS: ONDANSETRON 4 MG OD TAB PO PRN (20:12)
[2024-06-13] MEDS: LIDOCAINE 5% 1 PATCH TD STA (13:13)
[2024-06-13] MEDS: MoRPHine SULFATE 10 MG/0.5 ML UDP PO PRN (13:23)
--- NOTE | 2024-06-13 13:36 | Hospitalist Progress Note ---
Date of Service June 13, 2024 Assessment & Plan (1) Acute and chronic respiratory failure with hypoxia: Plan 79-year-old female with past medical history significant for hyperlipidemia, prediabetes, chronic respiratory failure with hypoxia on 3 to 4 L oxygen, COPD, history of lung nodule, paroxysmal atrial fibrillation, chronic diastolic CHF, pulmonary hypertension, hypertension, venous insufficiency, CAD, status post drug-eluting stent to the right coronary artery, QT prolongation , history of bladder mass, history of smoking, comes because of shortness of breath with increasing oxygen requirements. Patient's was feeling short of breath since evening. 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 Pt and family requesting morphine drip which was started on 06/13/24 She was previously treated as follows: Acute on chronic respiratory failure with hypoxia Acute COPD exacerbation Acute diastolic CHF Patient chronically on 3 to 4 L oxygen at home Requiring high flow on admission Chest x-ray pulmonary congestion versus atypical infection Diminished breath sounds IV Solu-Medrol 40 mg 3 times daily, nebs [id number]-zhory and as needed IV Lasix 40 mg daily and continue spironolactone echo obtained Empiric antibiotics IV Rocephin and doxycycline -> switched to cefepime given sputum cultx posit. for pseudomonas procalcitonin negative Pulmonary and cardiology consulted - cont. diuretics, abx, nebulized bronchodilators. palliative med. consult Close monitor History of CAD status post drug-eluting stent to right coronary artery On aspirin, Imdur and Coumadin History of paroxysmal atrial fibrillation On sotalol and Coumadin and INR 2.4 Will follow PT/INR Chronic lower extremity edema On diuretics Left lower extremity wound From hematoma Follows with wound care Wound care Left lung nodule Refused workup Follow History of prediabetes HbA1c 6.1 on 05/04/2024 DVT prophylaxis On Coumadin Will follow PT/INR Admission and Anticipated Discharge Date Admission Date: June 07, 2024 Subjective patient was seen resting comfortably Notified by nursing that she was requesting lidocaine patch Later notified that family would like morphine drip started and that palliative care was aware Review of Systems Review of Systems: All systems reviewed & are unremarkable except as noted in Subjective Physical Exam Physical Exam: General: Alert, oriented. No acute distress Psych: agitated mood and affect HEENT: NC/AT Resp: no increased effort of breathing Results & Data Results & Data Vital Signs (Past 12 Hours) Vital Signs O2 Del Method O2 Flow Rate 06/13/24 07:15 Nasal Cannula 4
[2024-06-13] MEDS ORDERED: STAT IV Infusion **Titration per Protocol STA (16:45)
[2024-06-13] MEDS: MoRPHine SULF 100 MG/100 ML BAG IV SCH (17:47)
[2024-06-13] MEDS ORDERED: SODIUM CHLORIDE 0.9% 50 ML BAG IV SCH (18:00)
[2024-06-13] MEDS: SODIUM CHLORIDE 0.9% 1,000 ML IV SCH (18:05)
[2024-06-13] MEDS ORDERED: SODIUM CHLORIDE 0.9% 100 ML IV SCH (18:15)
--- NOTE | 2024-06-14 00:13 | Palliative Care Progress Note ---
Date of Service June 14, 2024 Assessment & Plan (1) Palliative care by specialist: Plan: Palliative care will continue to follow for ongoing comfort directed care. (2) Need for comfort care: Plan: NURSING AGENCY MANAGER - Symptom management: Pain/dyspnea/tachypnea Morphine Sulfate 5 mg PO Q30M PRN titrate morphine drip for comfort Nausea/vomitting [] zofran 4mg IVP q4h PRN Agitation [] ativan 0.5mg IVP q4h PRN Hyperactive delirium [] haldol 5mg IVP q6h PRN Secretions - if repositioning not effective [] robinul 0.4mg IV q4h PRN [] atropine SL 3 drops Q1h PRN Nursing care: Discontinue all medications not directed towards comfort. Detether pt from IV tubing, monitor cables, and check vitals once per shift. Please continue HFNC and titrate down as able for patient comfort. Use medications above PRN for dyspnea/tachypnea and do not increase oxygen once titrated down. Assess q1h for pain/dyspnea and treat accordingly. Plan see above Admission and Anticipated Discharge Date Admission Date: June 07, 2024 Subjective Assessed pt at bedside, she was transitioned to NURSING AGENCY MANAGER on 06/12. Pt is unresponsive to verbal and gentle tactile stimuli, did not attempt to awaken in concert with comfort directed care. She appears comfortable, pale skin, extremities cool and dusky. Respiratory effort more relaxed today, rate 18min. No visitors at bedside. Review of Systems Review of Systems: Unobtainable due to cognitive status Physical Exam Constitutional: + cachectic and + frail appearing Eyes: PERRL, conjunctivae normal, anicteric sclerae Neck: trachea midline, no thyromegaly Respiratory: + prolonged expiratory phase Cardiovascular: Rate/Rhythm: + tachycardic and + irregularly irregular Musculoskeletal: generalized weakness Skin: no rashes, warm and dry + pallor Neurologic: PERRL, EOMI, accommodation nl, no face palsy, no dysarthria Results & Data Vital Signs (Past 12 Hours) Vital Signs O2 Del Method 06/13/24 19:10 Room Air Laboratory Results No further labs or diagnostics in concert with comfort directed care. Diagnostic Findings No further labs or diagnostics in concert with comfort directed care. Medications Administered Current Inpatient Medications Acetaminophen (Acetaminophen 325 Mg Tab) 650 mg PO Q6H PRN PRN Reason: Pain or Fever Stop: 02/03/25 00:34 Albuterol (Albuterol Hfa 8 Gm Inhaler) 2 puffs INH Q4H PRN PRN Reason: Shortness Of Breath Or Wheezin Stop: 07/08/24 00:34 Last Admin: 06/11/24 16:51 Dose: 2 puffs Albuterol (Albut/Ipratrop 3mg/0.5mg Neb 3 Ml Vial) 3 ml NEB Q4H PRN; Protocol PRN Reason: Shortness Of Breath Or Wheezing Stop: 07/08/24 00:34 Last Admin: 06/08/24 19:52 Dose: 3 ml Atropine Sulfate (Atropine Sulfate 1% Op Soln 5 Ml Btl) 4 drops SL Q1H PRN PRN Reason: Secretions or pulm congestion Stop: 07/12/24 10:07 Glycopyrrolate (Glycopyrrolate 0.2 Mg/Ml Vial) 0.4 mg IV Q4H PRN PRN Reason: Rattling Secretions or Pulm Congestion Stop: 07/12/24 10:07 Last Admin: 06/14/24 12:17 Dose: 0.4 mg Haloperidol (Haloperidol Oral Soln 2 Mg/Ml) 0.5 mg PO Q4H PRN PRN Reason: Nausea &/or Vomiting Stop: 07/12/24 10:07 Haloperidol (Haloperidol Oral Soln 2 Mg/Ml) 0.5 mg PO Q4H PRN PRN Reason: Anxiety/Agitation Stop: 07/12/24 10:07 Morphine Sulfate (Morphine Sulf) 100 mg in 100 mls @ 1 mls/hr IV .Q96H DONOVAN; Protocol Stop: 06/27/24 16:44 Last Titration: 06/14/24 19:11 Dose: 2 mg/hr, 2 mls/hr Sodium Chloride (Nss) 1,000 mls @ 15 mls/hr IV .Q24H DONOVAN Stop: 07/13/24 18:14 Last Admin: 06/14/24 18:13 Dose: Not Given Lidocaine (Lidocaine 5% 1 Patch) 1 patch TD QAM DONOVAN Stop: 07/14/24 08:59 Last Admin: 06/14/24 08:37 Dose: Not Given Lorazepam (Lorazepam 2 Mg/1 Ml Vial) 0.5 mg IV Q4H PRN PRN Reason: Anxiety/Agitation Stop: 07/12/24 10:07 Last Admin: 06/14/24 03:48 Dose: 0.5 mg Miscellaneous (Remove Lidoderm Patch) 1 each N/A DAILY@2100 [facility] Stop: 07/13/24 20:59 Last Admin: 06/14/24 19:49 Dose: Not Given Morphine Sulfate (Morphine Sulfate 10 Mg/0.5 Ml Udp) 5 mg PO Q15M PRN PRN Reason: discomfort, dyspnea, tachypnea Stop: 06/26/24 10:07 Last Admin: 06/13/24 17:08 Dose: 5 mg Morphine Sulfate (Morphine Bolus From Bag) 1 mg IV Q15M PRN PRN Reason: Comfort Care Parameters Stop: 06/27/24 16:44 Last Admin: 06/14/24 19:47 Dose: 1 mg Nitroglycerin (Nitroglycerin Sl 0.4 Mg/Tab Tab) 0.4 mg SL Q5M PRN PRN Reason: Chest Pain Stop: 07/08/24 00:34 Ondansetron HCl (Ondansetron Inj 2 Mg/Ml 2 Ml Vial) 4 mg IV Q4H PRN PRN Reason: Nausea &/or Vomiting Stop: 07/12/24 10:07 Ondansetron HCl (Ondansetron 4 Mg Od Tab) 4 mg PO Q6H PRN PRN Reason: Nausea Stop: 07/12/24 19:42 Last Admin: 06/12/24 20:12 Dose: 4 mg Polyethylene Glycol (Polyethylene (Miralax) 17 Gm Pack) 17 gm PO DAILY PRN PRN Reason: Constipation Stop: 07/08/24 00:34 Spironolactone (Spironolactone 25 Mg Tab) 25 mg PO DAILY [facility] Stop: 07/08/24 08:59 Last Admin: 06/14/24 08:37 Dose: Not Given PG Care Time/CCT Total # of Minutes Spent Total Time Spent with Patient: Total time spent is greater than 50% in coordination of care (as documented) at patient's floor/unit and/or counseling patient: [place] [address] SUB INP/OBS CARE 2/35MIN Patient Type Established History Expanded Problem Focused Exam Expanded Problem Focused Medical Decision Making Moderate Complexity Diagnoses Palliative care by specialist Z51.5 Need for comfort care
[2024-06-14] MEDS: MoRPHine BOLUS from BAG IV PRN (03:48)
[2024-06-14] MEDS: LORazepam 2 MG/1 ML VIAL IV PRN (03:48)
[2024-06-14] MEDS: LIDOCAINE 5% 1 PATCH TD SCH (08:37)
--- NOTE | 2024-06-14 11:48 | Hospitalist Progress Note ---
Date of Service June 14, 2024 Assessment & Plan (1) Acute and chronic respiratory failure with hypoxia: Plan 79-year-old female with past medical history significant for hyperlipidemia, prediabetes, chronic respiratory failure with hypoxia on 3 to 4 L oxygen, COPD, history of lung nodule, paroxysmal atrial fibrillation, chronic diastolic CHF, pulmonary hypertension, hypertension, venous insufficiency, CAD, status post drug-eluting stent to the right coronary artery, QT prolongation , history of bladder mass, history of smoking, comes because of shortness of breath with increasing oxygen requirements. Patient's was feeling short of breath since evening. Pt met with Palliative Care on 06/12/24 and was agreeable to OUTPATIENT COORDINATOR at that time. Pt and family requesting morphine drip which was started on 06/13/24 She was previously treated as follows: Acute on chronic respiratory failure with hypoxia Acute COPD exacerbation Acute diastolic CHF Patient chronically on 3 to 4 L oxygen at home Requiring high flow on admission Chest x-ray pulmonary congestion versus atypical infection Diminished breath sounds IV Solu-Medrol 40 mg 3 times daily, nebs [id number] and as needed IV Lasix 40 mg daily and continue spironolactone echo obtained Empiric antibiotics IV Rocephin and doxycycline -> switched to cefepime given sputum cultx posit. for pseudomonas procalcitonin negative Pulmonary and cardiology consulted - cont. diuretics, abx, nebulized bronchodilators. palliative med. consult Close monitor History of CAD status post drug-eluting stent to right coronary artery On aspirin, Imdur and Coumadin History of paroxysmal atrial fibrillation On sotalol and Coumadin and INR 2.4 Will follow PT/INR Chronic lower extremity edema On diuretics Left lower extremity wound From hematoma Follows with wound care Wound care Left lung nodule Refused workup Follow History of prediabetes HbA1c 6.1 on 05/04/2024 DVT prophylaxis On Coumadin Will follow PT/INR Admission and Anticipated Discharge Date Admission Date: June 07, 2024 Subjective patient was seen resting comfortably Notified by nursing that Jolly catheter needed Review of Systems Review of Systems: All systems reviewed & are unremarkable except as noted in Subjective Physical Exam Physical Exam: General: Alert, oriented. No acute distress Psych: agitated mood and affect HEENT: NC/AT Resp: no increased effort of breathing Results & Data Results & Data Vital Signs (Past 12 Hours) Vital Signs O2 Del Method 06/14/24 07:45 Room Air
[2024-06-14] MEDS: GLYCOPYRROLATE 0.2 MG/ML VIAL IV PRN (12:17)
--- NOTE | 2024-06-15 11:42 | Hospitalist Progress Note ---
Date of Service June 15, 2024 Assessment & Plan (1) Acute and chronic respiratory failure with hypoxia: Plan 79-year-old female with past medical history significant for hyperlipidemia, prediabetes, chronic respiratory failure with hypoxia on 3 to 4 L oxygen, COPD, history of lung nodule, paroxysmal atrial fibrillation, chronic diastolic CHF, pulmonary hypertension, hypertension, venous insufficiency, CAD, status post drug-eluting stent to the right coronary artery, QT prolongation , history of bladder mass, history of smoking, comes because of shortness of breath with increasing oxygen requirements. Patient's was feeling short of breath since evening. Pt met with Palliative Care on 06/12/24 and was agreeable to HYDROTREATER OPERATOR at that time. Pt and family requesting morphine drip which was started on 06/13/24 Further Palliative Care meetings on 06/15/24- meds adjusted She was previously treated as follows: Acute on chronic respiratory failure with hypoxia Acute COPD exacerbation Acute diastolic CHF Patient chronically on 3 to 4 L oxygen at home Requiring high flow on admission Chest x-ray pulmonary congestion versus atypical infection Diminished breath sounds IV Solu-Medrol 40 mg 3 times daily, nebs [id number] and as needed IV Lasix 40 mg daily and continue spironolactone echo obtained Empiric antibiotics IV Rocephin and doxycycline -> switched to cefepime given sputum cultx posit. for pseudomonas procalcitonin negative Pulmonary and cardiology consulted - cont. diuretics, abx, nebulized bronchodilators. palliative med. consult Close monitor History of CAD status post drug-eluting stent to right coronary artery On aspirin, Imdur and Coumadin History of paroxysmal atrial fibrillation On sotalol and Coumadin and INR 2.4 Will follow PT/INR Chronic lower extremity edema On diuretics Left lower extremity wound From hematoma Follows with wound care Wound care Left lung nodule Refused workup Follow History of prediabetes HbA1c 6.1 on 05/04/2024 DVT prophylaxis On Coumadin Will follow PT/INR Admission and Anticipated Discharge Date Admission Date: June 07, 2024 Subjective patient was seen laying in bed asking what the plan was stating that she was not aware what the next steps would be Per nursing patient's daughter was not happy with current comfort measures. Daughter called via telephone and she notes that patient states that she is not comfortable. They also note that she says she has been awoken at nighttime to have vitals done. Palliative care was notified. Review of Systems Review of Systems: All systems reviewed & are unremarkable except as noted in Subjective Physical Exam Physical Exam: General: Alert, oriented. No acute distress Psych: agitated mood and affect HEENT: NC/AT Resp: no increased effort of breathing Results & Data Results & Data Vital Signs (Past 12 Hours) Vital Signs O2 Del Method O2 Flow Rate 06/15/24 10:15 Nasal Cannula 4
[2024-06-15] MEDS ORDERED: NALOXONE HCL 0.4 MG/1 ML VIAL/CARP IV PRN (12:31)
[2024-06-15] MEDS ORDERED: HALOPERIDOL ORAL SOLN 2 MG/ML PO PRN (12:34)
[2024-06-15] MEDS: LORazepam 2 MG/1 ML VIAL IV SCH (12:56)
--- NOTE | 2024-06-15 12:56 | Palliative Care Progress Note ---
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 She is on a morphine comfort care gtt but has good supervisor detasseling crew strength so therefore will move her to a Morphine CONCRETE SAW OPERATOR with 2mg per hour continuous and 2mg q15min CONCRETE SAW OPERATOR bolus, hourly max of 12mg per hour We agreed to add scheduled low dose Ativan 0.5mg Q8h and will continue to offer Ativan 1mg IV Q4h prn severe anxiety/spasms/panic/myoclonus/nausea I had added Haldol Intensol SL 0.5mg Q4h prn for agitation, hallucinations, nausea (2) Weakness generalized: Plan: terminal lung failure related EOL PS decline (3) Generalized pain: Plan: MS CONCRETE SAW OPERATOR initiated as noted in #1 (4) Need for comfort care: (5) Encounter for end of life care: (6) Encounter for end of life education, guidance and counseling: Plan: A 30 min telemed ACP was held with Lila, her daughter Jo Ann and Jo Ann's alongside Coreen Fritz RN. Patient and family concerns as noted in HPI were discussed at length. We reviewed the available interventions and recorded instances of pt refusal of these when offered. Pt and dtr feel a scheduled regimen of medication would be better, pt perceives she asked for a prn Morphine dose the other day "and had to wait 2 hours" and then also perceives "she was told she is being moved somewhere to [place]". I briefly discussed the AMS that can occur with EOL flora end stage lung failure. We agreed to scheduled low dose Ativan 0.5mg IV q8h and will keep Ativan 1mg IV q4h prn for breakthru anxiety/panic, nausea, myoclonus. Haldol intensol has been added for hallucination, delirium, nausea, agitation. We have changed MS gtt to a MS CONCRETE SAW OPERATOR of MS 2mg per hour with MS 2mg CONCRETE SAW OPERATOR q15min prn to optimize pt comfort and put the control of prn dosing into her hands, Her supervisor detasseling crew strength at this time remains intact, dtr assessed at bedside during this telemed visit with me. Discussed changes pt may move through in the dying process including but not limited to sleeping more, disorientation when awake, restlessness, diminished senses/inability to respond to stimulus although ability to be aware of them remains intact longer, changes in body temperatures, skin changes/mottling/ cyanosis, respiratory pattern changes, oral secretions. Family verbalized understanding. The goal is to assure a peaceful . (7) End stage COPD: (8) Palliative care by specialist: (9) Pulmonary hypertension: Plan A follow up telemed visit will be done this evening at 6pm with pt and family. They will have me paged in the interim if additional symptoms arise or there is not enough relief with the aforementioned changes. Thank you for allowing us to participate in the ongoing care of this patient. Please page with any additional concerns. Connor Walker DNP Director, Palliative Medicine Admission and Anticipated Discharge Date Admission Date: June 07, 2024 Subjective URGENT TELEMED VISIT WITH FAMILY/ACP MEETING FOR PT PT AND FAMILY REPORT UNCONTROLLED DISTRESS PATIENT REPORTS HER TRAYS ARE LEFT BEYOND HER REACH, SHE IS ALWAYS LEANING TO ONE SIDE, SHE NEEDS TO SIT UP STRAIGHT BUT HEAD OF BED KEEPS BEING PLACED IN RECLINING POSITION, PAIN AND DYSPNEA UNCONTROLLED DAUGHTER JO ANN AT BEDSIDE, STATES "THERE IS NOTHING COMFORTING ABOUT THIS CARE RIGHT NOW." Chart reviewed / case d/w staff/nursing pt has been refusing PRN meds and various care interventions when offered She has refused repositioning She has refused PRN morphine and ativan but continues to report uncontrolled pain, anxiety and dyspnea with EOL suffering on telemed video: pt is awake and alert, sitting upright in bed, slightly lean ing to her right she is dyspneic and using accessory muscles. she is disheveled. she is anxious and irritable through our visit, though some of this is consistent with her usual baseline as noted from my prior interactions. Review of Systems Review of Systems: All systems reviewed & are unremarkable except as noted in Subjective Physical Exam Physical Exam: telemed exam: tachypneic elderly female bitemp wasting disheveled and somewhat chaotic appearance in resp distress using accessory muscles, +conversational dyspnea dtr helped assess strength- pt tightly squeezed daughter's hand and resisted attempts to withdraw hand, strength and supervisor detasseling crew are "very strong" per daughter and it is believed she can press a CONCRETE SAW OPERATOR button with adequate strength anxious and irritable through our visit but calmer by end of discussion after modifications to the plan of care were agreed upon/see below Results & Data Vital Signs (Past 12 Hours) Vital Signs O2 Del Method O2 Flow Rate 06/15/24 10:15 Nasal Cannula 4 Laboratory Results SENIOR CYBER SECURITY ANALYST Diagnostic Findings SENIOR CYBER SECURITY ANALYST PG Care Time/CCT Total # of Minutes Spent Total Time Spent with Patient: Total time spent is greater than 50% in coordination of care (as documented) at patient's floor/unit and/or counseling patient: I spent 95 minutes overall addressing this case: 20 min in medical data review/discussion with referring provider(s) and/or preparation for the visit incl d/w additional providers and nursing teams 10 min in direct interaction with the patient/exam 30 min in Advance Care Planning/Goals of Care discussions as detailed above in note (must be >16min) 15 min in subsequent review and synthesis of assessment and plan 20 min communicating with other providers regarding the patient's case: nursing, pharmacy, primary team Advanced Care Planning 96637 Advanced Care Planning 30 Min [place] [address] SUB INP/OBS CARE 3/50MIN (25 - SIGNIFICANT, SEPARATELY IDENTIFIABLE ) Patient Type Established Medical Decision Making High Complexity Diagnoses Dyspnea and respiratory abnormalities R06.00; R06.89 Weakness generalized R53.1 Generalized pain R52 Need for comfort care Encounter for end of life care Z51.5 Encounter for end of life education, guidance and counseling End stage COPD J44.9 Palliative care by specialist Z51.5 Pulmonary hypertension I27.20 Additional Codes Advanced Care Planning - 10186 Advanced Care Planning 30 Min: 42904 Advanced Care Planning 30 Min ([id number]) Time Spent (min) 95 Comment High mdm
[2024-06-15] MEDS: MoRPHine SULFATE PCA 30 MG/30 ML IV PRN (13:29)
[2024-06-15] MEDS: LORazepam 2 MG/1 ML VIAL IV PRN (19:53)
--- NOTE | 2024-06-16 12:16 | Hospitalist Progress Note ---
Date of Service June 16, 2024 Assessment & Plan (1) Acute and chronic respiratory failure with hypoxia: Plan 79-year-old female with past medical history significant for hyperlipidemia, prediabetes, chronic respiratory failure with hypoxia on 3 to 4 L oxygen, COPD, history of lung nodule, paroxysmal atrial fibrillation, chronic diastolic CHF, pulmonary hypertension, hypertension, venous insufficiency, CAD, status post drug-eluting stent to the right coronary artery, QT prolongation , history of bladder mass, history of smoking, comes because of shortness of breath with increasing oxygen requirements. Patient's was feeling short of breath since evening. Pt met with Palliative Care on 06/12/24 and was agreeable to MEAT AND SEAFOOD MANAGER at that time. Pt and family requesting morphine drip which was started on 06/13/24 Further Palliative Care meetings on 06/15/24- meds adjusted She was previously treated as follows: Acute on chronic respiratory failure with hypoxia Acute COPD exacerbation Acute diastolic CHF Patient chronically on 3 to 4 L oxygen at home Requiring high flow on admission Chest x-ray pulmonary congestion versus atypical infection Diminished breath sounds IV Solu-Medrol 40 mg 3 times daily, nebs [id number] and as needed IV Lasix 40 mg daily and continue spironolactone echo obtained Empiric antibiotics IV Rocephin and doxycycline -> switched to cefepime given sputum cultx posit. for pseudomonas procalcitonin negative Pulmonary and cardiology consulted - cont. diuretics, abx, nebulized bronchodilators. palliative med. consult Close monitor History of CAD status post drug-eluting stent to right coronary artery On aspirin, Imdur and Coumadin History of paroxysmal atrial fibrillation On sotalol and Coumadin and INR 2.4 Will follow PT/INR Chronic lower extremity edema On diuretics Left lower extremity wound From hematoma Follows with wound care Wound care Left lung nodule Refused workup Follow History of prediabetes HbA1c 6.1 on 05/04/2024 DVT prophylaxis On Coumadin Will follow PT/INR Admission and Anticipated Discharge Date Admission Date: June 07, 2024 Subjective patient was seen laying in bed resting comfortably Review of Systems Review of Systems: All systems reviewed & are unremarkable except as noted in Subjective Physical Exam Physical Exam: General: Alert, oriented. No acute distress Psych: agitated mood and affect HEENT: NC/AT Resp: no increased effort of breathing Results & Data Results & Data Vital Signs (Past 12 Hours) Vital Signs O2 Del Method O2 Flow Rate 06/16/24 09:58 Nasal Cannula 4
[2024-06-16] MEDS ORDERED: STAT IV Infusion **Titration per Protocol STA (13:22)
[2024-06-17] MEDS: MoRPHine SULF 100 MG/100 ML BAG IV SCH (02:42)
[2024-06-17] MEDS: ATROPINE SULFATE 1% OP SOLN 5 ML BTL SL PRN (08:05)
[2024-06-17] MEDS: MoRPHine BOLUS from BAG IV PRN (10:24)
--- NOTE | 2024-06-17 10:32 | Hospitalist Progress Note ---
Date of Service June 17, 2024 Assessment & Plan (1) Acute and chronic respiratory failure with hypoxia: Plan 79-year-old female with past medical history significant for hyperlipidemia, prediabetes, chronic respiratory failure with hypoxia on 3 to 4 L oxygen, COPD, history of lung nodule, paroxysmal atrial fibrillation, chronic diastolic CHF, pulmonary hypertension, hypertension, venous insufficiency, CAD, status post drug-eluting stent to the right coronary artery, QT prolongation , history of bladder mass, history of smoking, comes because of shortness of breath with increasing oxygen requirements. Patient's was feeling short of breath since evening. Pt met with Palliative Care on 06/12/24 and was agreeable to CONTACT CENTER MANAGER at that time. Pt and family requesting morphine drip which was started on 06/13/24 Further Palliative Care meetings on 06/15/24- meds adjusted 06/17- daughter concerned pt too sedated now to push the pain pump and wanted the settings readjusted back to a steady dose. She was previously treated as follows: Acute on chronic respiratory failure with hypoxia Acute COPD exacerbation Acute diastolic CHF Patient chronically on 3 to 4 L oxygen at home Requiring high flow on admission Chest x-ray pulmonary congestion versus atypical infection Diminished breath sounds IV Solu-Medrol 40 mg 3 times daily, nebs [id number] and as needed IV Lasix 40 mg daily and continue spironolactone echo obtained Empiric antibiotics IV Rocephin and doxycycline -> switched to cefepime given sputum cultx posit. for pseudomonas procalcitonin negative Pulmonary and cardiology consulted - cont. diuretics, abx, nebulized bronchodilators. palliative med. consult Close monitor History of CAD status post drug-eluting stent to right coronary artery On aspirin, Imdur and Coumadin History of paroxysmal atrial fibrillation On sotalol and Coumadin and INR 2.4 Will follow PT/INR Chronic lower extremity edema On diuretics Left lower extremity wound From hematoma Follows with wound care Wound care Left lung nodule Refused workup Follow History of prediabetes HbA1c 6.1 on 05/04/2024 DVT prophylaxis On Coumadin Will follow PT/INR Admission and Anticipated Discharge Date Admission Date: June 07, 2024 Subjective patient was seen laying in bed resting comfortably Daughter at bedside, concerned about patient not being able to push the pain pump Review of Systems Review of Systems: All systems reviewed & are unremarkable except as noted in Subjective Physical Exam Physical Exam: General: Alert, oriented. No acute distress Psych: agitated mood and affect HEENT: NC/AT Resp: no increased effort of breathing Results & Data Results & Data Vital Signs (Past 12 Hours) Vital Signs O2 Del Method O2 Flow Rate 06/17/24 07:43 Nasal Cannula 4
--- NOTE | 2024-06-17 23:07 | Palliative Care Progress Note ---
Date of Service June 17, 2024 Assessment & Plan (1) Palliative care by specialist: Plan: Palliative care will continue to follow for ongoing comfort directed care. 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 Detether pt from IV tubing, monitor cables, and check vitals once per shift. Please continue HFNC and titrate down as able for patient comfort. Use medications above PRN for dyspnea/tachypnea and do not increase oxygen once titrated down. Assess q1h for pain/dyspnea and treat accordingly. Plan see above Admission and Anticipated Discharge Date Admission Date: June 07, 2024 Subjective Assessed pt at bedside, she was transitioned to PILE DRIVING TECHNICIAN on 06/12. Pt is unresponsive to verbal and gentle tactile stimuli, did not attempt to awaken in concert with comfort directed care. She appears comfortable, NAD, extremities warm and well perfused. No visitors at bedside. Review of Systems Review of Systems: Unobtainable due to cognitive status Physical Exam Constitutional: + cachectic and + frail appearing Neck: trachea midline, no thyromegaly Respiratory: + prolonged expiratory phase Cardiovascular: Rate/Rhythm: regular rate, + tachycardic and + irregularly irregular Musculoskeletal: generalized weakness Skin: no rashes, warm and dry + pallor Results & Data Vital Signs (Past 12 Hours) Vital Signs Temp 36.6 C 06/12/24 07:22 Pulse 53 L 06/12/24 07:22 Resp 19 06/12/24 07:22 BP 139/69 06/12/24 07:22 Pulse Ox 99 06/12/24 07:22 O2 Del Method Nasal Cannula 06/17/24 07:43 O2 Flow Rate 4 06/17/24 07:43 FiO2 40 06/08/24 07:36 Intake & Output 06/17/24 06/17/24 06/18/24 06:59 18:59 06:59 Intake Total 0 / 0 18.567 / 18.567 Output Total 300 / 300 Balance -300 / -300 18.567 / 18.567 Intake: IV 18.567 / 18.567 MoRPHine SULF 100 mg In 100 ml 18.567 / 18.567 @ 2 MG/HR 2 mls/hr IV .Q50H [facility] Rx#:[id number] Oral 0 / 0 Output: Urine Amount (Catheter) 300 / 300 Jolly/Indwelling 300 / 300 Laboratory Results No further labs or diagnostics in concert with comfort directed care. Diagnostic Findings No further labs or diagnostics in concert with comfort directed care. Medications Administered Current Inpatient Medications Acetaminophen (Acetaminophen 325 Mg Tab) 650 mg PO Q6H PRN PRN Reason: Pain or Fever Stop: 07/08/24 00:34 Albuterol (Albuterol Hfa 8 Gm Inhaler) 2 puffs INH Q4H PRN PRN Reason: Shortness Of Breath Or Wheezin Stop: 07/08/24 00:34 Last Admin: 06/11/24 16:51 Dose: 2 puffs Albuterol (Albut/Ipratrop 3mg/0.5mg Neb 3 Ml Vial) 3 ml NEB Q4H PRN; Protocol PRN Reason: Shortness Of Breath Or Wheezing Stop: 07/08/24 00:34 Last Admin: 06/08/24 19:52 Dose: 3 ml Atropine Sulfate (Atropine Sulfate 1% Op Soln 5 Ml Btl) 4 drops SL Q1H PRN PRN Reason: Secretions or pulm congestion Stop: 07/12/24 10:07 Last Admin: 06/17/24 16:39 Dose: 4 drops Glycopyrrolate (Glycopyrrolate 0.2 Mg/Ml Vial) 0.4 mg IV Q4H PRN PRN Reason: Rattling Secretions or Pulm Congestion Stop: 07/12/24 10:07 Last Admin: 06/17/24 22:50 Dose: 0.4 mg Haloperidol (Haloperidol Oral Soln 2 Mg/Ml) 1 mg PO Q4H PRN PRN Reason: N/v,agitation,delirium,halluci Stop: 07/12/24 10:07 Sodium Chloride (Nss) 1,000 mls @ 0 mls/hr IV .Q24H [facility] Stop: 07/13/24 18:14 Last Admin: 06/15/24 19:54 Dose: 15 mls/hr Morphine Sulfate (Morphine Sulf) 100 mg in 100 mls @ 2.5 mls/hr IV .Q40H [facility]; Protocol Stop: 06/30/24 13:29 Last Titration: 06/17/24 11:59 Dose: 2.5 mg/hr, 2.5 mls/hr Lidocaine (Lidocaine 5% 1 Patch) 1 patch TD QAM [facility] Stop: 07/14/24 08:59 Last Admin: 06/17/24 07:40 Dose: Not Given Lorazepam (Lorazepam 2 Mg/1 Ml Vial) 1 mg IV Q4H PRN PRN Reason: Anxiety/Agitation Stop: 07/12/24 10:07 Last Admin: 06/17/24 18:19 Dose: 1 mg Lorazepam (Lorazepam 2 Mg/1 Ml Vial) 0.5 mg IV Q8H [facility] Stop: 07/15/24 12:34 Last Admin: 06/17/24 22:50 Dose: 0.5 mg Miscellaneous (Remove Lidoderm Patch) 1 each N/A DAILY@2100 [facility] Stop: 07/13/24 20:59 Last Admin: 06/17/24 22:50 Dose: 1 each Morphine Sulfate (Morphine Bolus From Bag) 2 mg IV Q10M PRN PRN Reason: Comfort Care Parameters Stop: 06/30/24 13:21 Last Admin: 06/17/24 11:36 Dose: 2 mg Ondansetron HCl (Ondansetron Inj 2 Mg/Ml 2 Ml Vial) 4 mg IV Q4H PRN PRN Reason: Nausea &/or Vomiting Stop: 07/12/24 10:07 Polyethylene Glycol (Polyethylene (Miralax) 17 Gm Pack) 17 gm PO DAILY PRN PRN Reason: Constipation Stop: 07/08/24 00:34 PG Care Time/CCT Total # of Minutes Spent Total Time Spent with Patient: Total time spent is greater than 50% in coordination of care (as documented) at patient's floor/unit and/or counseling patient: Coding [place] [address] SUB INP/OBS CARE 2/35MIN Patient Type Established History Expanded Problem Focused Exam Expanded Problem Focused Medical Decision Making Moderate Complexity Diagnoses Palliative care by specialist Z51.5 Need for comfort care
--- NOTE | 2024-06-18 12:31 | Hospitalist Progress Note ---
Date of Service June 18, 2024 Assessment & Plan (1) Acute and chronic respiratory failure with hypoxia: Plan 79-year-old female with past medical history significant for hyperlipidemia, prediabetes, chronic respiratory failure with hypoxia on 3 to 4 L oxygen, COPD, history of lung nodule, paroxysmal atrial fibrillation, chronic diastolic CHF, pulmonary hypertension, hypertension, venous insufficiency, CAD, status post drug-eluting stent to the right coronary artery, QT prolongation , history of bladder mass, history of smoking, comes because of shortness of breath with increasing oxygen requirements. Patient's was feeling short of breath since evening. Pt met with Palliative Care on 06/12/24 and was agreeable to LITHOGRAPHER HELPER at that time. Pt and family requesting morphine drip which was started on 06/13/24 Further Palliative Care meetings on 06/15/24- meds adjusted 06/17- daughter concerned pt too sedated now to push the pain pump and wanted the settings readjusted back to a steady dose. She was previously treated as follows: Acute on chronic respiratory failure with hypoxia Acute COPD exacerbation Acute diastolic CHF Patient chronically on 3 to 4 L oxygen at home Requiring high flow on admission Chest x-ray pulmonary congestion versus atypical infection Diminished breath sounds IV Solu-Medrol 40 mg 3 times daily, nebs [id number] and as needed IV Lasix 40 mg daily and continue spironolactone echo obtained Empiric antibiotics IV Rocephin and doxycycline -> switched to cefepime given sputum cultx posit. for pseudomonas procalcitonin negative Pulmonary and cardiology consulted - cont. diuretics, abx, nebulized bronchodilators. palliative med. consult Close monitor History of CAD status post drug-eluting stent to right coronary artery On aspirin, Imdur and Coumadin History of paroxysmal atrial fibrillation On sotalol and Coumadin and INR 2.4 Will follow PT/INR Chronic lower extremity edema On diuretics Left lower extremity wound From hematoma Follows with wound care Wound care Left lung nodule Refused workup Follow History of prediabetes HbA1c 6.1 on 05/04/2024 DVT prophylaxis On Coumadin Will follow PT/INR Admission and Anticipated Discharge Date Admission Date: June 07, 2024 Physical Exam Physical Exam: General: Alert, oriented. No acute distress Psych: agitated mood and affect HEENT: NC/AT Resp: no increased effort of breathing
--- NOTE | 2024-06-18 13:34 | Palliative Care Progress Note ---
Date of Service June 18, 2024 Assessment & Plan (1) Palliative care by specialist: Plan: Palliative care will continue to follow for ongoing comfort directed care. 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 Detether pt from IV tubing, monitor cables, and check vitals once per shift. Please continue HFNC and titrate down as able for patient comfort. Use medications above PRN for dyspnea/tachypnea and do not increase oxygen once titrated down. Assess q1h for pain/dyspnea and treat accordingly. Plan Spoke with pt's daughter Jo Ann on phone, She expressed concern that the pt was still alive and questioned what could be done to speed the process, with intent of "not prolonging her suffering". Helped Jo Ann understand that while we are offering comfort directed care to ease pt's suffering, we cannot do anything that would hasten . Jo Ann shared concern that "this has taken much longer than either of us expected and we are all suffering". We discussed that medications will be given to ease any type of discomfort the pt may express verbally or nonverbally. Provided comfort/compassion as well as anticipatory guidance. Pt appears comfortable on morphine drip titrated as needed for comfort, currently 2.5mg/hr BINDERY PRODUCTION MANAGER plan of care as above. Admission and Anticipated Discharge Date Admission Date: June 07, 2024 Subjective Assessed pt at bedside, she was transitioned to BINDERY PRODUCTION MANAGER on 06/12 Pt is unresponsive to verbal and gentle tactile stimuli, did not attempt to awaken in concert with comfort directed care. She appears comfortable, skin pale, warm and dry. Respirations not labored and regular, rate 20/min. No family at bedside. Review of Systems Review of Systems: Unobtainable due to cognitive status Physical Exam Constitutional: + cachectic and + frail appearing Neck: trachea midline, no thyromegaly Respiratory: + prolonged expiratory phase Cardiovascular: Rate/Rhythm: regular rate, + tachycardic and + irregularly irregular Musculoskeletal: generalized weakness Skin: no rashes, warm and dry + pallor Results & Data Vital Signs (Past 12 Hours) Vital Signs Temp 36.6 C 06/12/24 07:22 Pulse 53 L 06/12/24 07:22 Resp 19 06/12/24 07:22 BP 139/69 06/12/24 07:22 Pulse Ox 99 06/12/24 07:22 O2 Del Method Nasal Cannula 06/17/24 23:00 O2 Flow Rate 4 06/17/24 23:00 FiO2 40 06/08/24 07:36 Intake & Output 06/17/24 06/18/24 06/18/24 18:59 06:59 18:59 Intake Total 18.567 / 59.525 40.958 / 59.525 7.208 / 7.208 Output Total 300 / 300 Balance 18.567 / -240.475 -259.042 / -240.475 7.208 / 7.208 Intake: IV 18.567 / 59.525 40.958 / 59.525 7.208 / 7.208 MoRPHine SULF 100 mg In 100 ml 18.567 / 59.525 40.958 / 59.525 7.208 / 7.208 @ 2.5 MG/HR 2.5 mls/hr IV .Q40H [facility] Rx#:[id number] Output: Urine Amount (Catheter) 300 / 300 Jolly/Indwelling 300 / 300 Laboratory Results No further labs or diagnostics in concert with comfort directed care. Diagnostic Findings No further labs or diagnostics in concert with comfort directed care. PG Care Time/CCT Total # of Minutes Spent Total Time Spent with Patient: Total time spent is greater than 50% in coordination of care (as documented) at patient's floor/unit and/or counseling patient: [place] [address] SUB INP/OBS CARE 2/35MIN Patient Type Established Medical Decision Making Moderate Complexity Diagnoses Palliative care by specialist Z51.5 Need for comfort care
--- NOTE | 2024-06-18 14:02 | Death Pronouncement Note ---
Date of Service June 18, 2024 Pronouncement Note Admission Date Admission Date: June 07, 2024 Contributing Factors (1) Acute and chronic respiratory failure with hypoxia: (2) Acute exacerbation of chronic obstructive pulmonary disease (COPD): (3) (HFpEF) heart failure with preserved ejection fraction: (4) End stage COPD: (5) Palliative care by specialist: (6) Need for comfort care: Additional Data Confirmation of : no pulse, no respirations, no heart sounds and pupils fixed and dilated Family: contacted Attending physician: Azalea Cain MD Was code activated?: No
--- NOTE | 2024-06-18 14:02 | Discharge Summary ---
Discharge Summary Date of Service June 18, 2024 Principal Dx & Hospital Course #1 = Principal Diagnosis (1) Acute and chronic respiratory failure with hypoxia: (2) Acute exacerbation of chronic obstructive pulmonary disease (COPD): (3) (HFpEF) heart failure with preserved ejection fraction: (4) End stage COPD: (5) Palliative care by specialist: (6) Need for comfort care: Plan 79-year-old female with past medical history significant for hyperlipidemia, prediabetes, chronic respiratory failure with hypoxia on 3 to 4 L oxygen, COPD, history of lung nodule, paroxysmal atrial fibrillation, chronic diastolic CHF, pulmonary hypertension, hypertension, venous insufficiency, CAD, status post drug-eluting stent to the right coronary artery, QT prolongation , history of bladder mass, history of smoking, comes because of shortness of breath with increasing oxygen requirements. 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 Pt and family requesting morphine drip which was started on 06/13/24 Further Palliative Care meetings on 06/15/24- meds adjusted, started on HYPERION ESSBASE DEVELOPER pump 06/17- daughter concerned pt too sedated now to push the pain pump and wanted the settings readjusted back to a steady dose. patient passed peacefully on June 18, 2024 at 1:30 PM. Her daughter was called and notified. Palliative care also made aware. She was previously treated as follows: Acute on chronic respiratory failure with hypoxia Acute COPD exacerbation Acute diastolic CHF Patient chronically on 3 to 4 L oxygen at home Requiring high flow on admission Chest x-ray pulmonary congestion versus atypical infection Diminished breath sounds IV Solu-Medrol 40 mg 3 times daily, nebs [id number] and as needed IV Lasix 40 mg daily and continue spironolactone echo obtained Empiric antibiotics IV Rocephin and doxycycline -> switched to cefepime given sputum cultx posit. for pseudomonas procalcitonin negative Pulmonary and cardiology consulted - cont. diuretics, abx, nebulized bronchodilators. palliative med. consult She was transitioned to Comfort measures only by palliative care on 06/12/24. History of CAD status post drug-eluting stent to right coronary artery On aspirin, Imdur and Coumadin History of paroxysmal atrial fibrillation On sotalol and Coumadin and INR 2.4 Chronic lower extremity edema On diuretics Left lower extremity wound From hematoma Follows with wound care Wound care Left lung nodule Refused workup Follow History of prediabetes HbA1c 6.1 on 05/04/2024 Notes For Next Care Provider pt Medication Changes From Visit None- pt Admission HPI Per Admitting Provider 79-year-old female with past medical history significant for hyperlipidemia, prediabetes, chronic respiratory failure with hypoxia on 3 to 4 L oxygen, COPD, history of lung nodule, paroxysmal atrial fibrillation, chronic diastolic CHF, pulmonary hypertension, hypertension, venous insufficiency, CAD, status post drug-eluting stent to the right coronary artery, QT prolongation , history of bladder mass, history of smoking, comes because of shortness of breath with increasing oxygen requirements. Patient's was feeling short of breath since evening. Has chronic cough. Denies any fevers. No runny nose or sore throat. No headache. Denies any chest pain. No nausea. No abdominal pain. Somewhat constipated. Denies any blood in the stools. Micturating okay. Currently on high flow oxygen saturating okay. Patient was in the hospital in first week of May 2024 with acute COPD exacerbation. Patient followed with pulmonary on 05/20/2024. Pulmonary seems to discussed about the left upper lobe findings and PET scan findings and patient does not want a diagnostic workup or oncology evaluation or radiation therapy per pulmonary notes. Past medical history. As mentioned above. Past surgical history. Cardiac cath. Cystoscopy. Cystoscopy arthroscopy with fulguration of small bladder tumor. Defibrillation/cardioversion. Hysteroscopy with biopsy. Ligation of oviducts. Appendectomy. Social history. . Quit smoking 02/06/2024. Smoked 1 pack a day for 64 years. Alcohol occasional. No drug use. Family history. Sister had breast cancer. Father had colon cancer. Diabetes. Mother had a gastric hemorrhage. Brother had heart disorder. Diabetes. Admission Exam Per Admitting Provider General- Not in acute distress Head- atraumatic Eyes- PERRL. ENT- oropharynx clear Neck- supple, no JVD. Lungs- B/L diminished breath sounds, No wheezing or crackles. Heart- regular rhythm; no murmur, no gallop. Abdomen- normal bowel sounds, soft, nontender, no distension Extremities- b/l lower extremity edema present. wound seen on left leg posterior aspect in calf region- no erythema or drainage seen Neuro- alert, oriented PERRL, no facial palsy; no dysarthria; moves extremities Discharge Exam General: laying in bed, ashen HEENT: NC/AT, mouth open, pupils fixed and dilated, carotid pulse nonpalpable Resp: no breath sounds CV: no heart sounds Updated Medication List Medication Instructions Recorded Confirmed Type albuterol sulfate 2.5 mg/3 mL 2.5 mg continuous nebulization Q4H 06/07/24 06/07/24 History (0.083 %) solution for nebulization PRN sob albuterol sulfate 90 mcg/actuation 2 puff inhalation Q4H PRN 06/07/24 06/07/24 History aerosol inhaler Shortness Of Breath Or Wheezing aspirin 81 mg tablet,delayed 81 mg PO DAILY 06/07/24 06/07/24 History release azelastine 137 mcg (0.1 %) nasal 1 spray intranasal BID 06/07/24 06/07/24 History spray budesonide 160 mcg-glycopyr 9 2 inh inhalation BID 06/07/24 06/07/24 History mcg-formot 4.8 mcg/actuation HFA inhaler (Breztri Aerosphere) furosemide 20 mg tablet 40 mg PO DAILY 06/07/24 06/07/24 History isosorbide mononitrate 30 mg 30 mg PO DAILY 06/07/24 06/07/24 History tablet,extended release 24 hr nitroglycerin 0.4 mg sublingual 0.4 mg sublingual UD PRN Chest Pain 06/07/24 06/07/24 History tablet oxycodone 5 mg tablet 5 mg PO TID PRN Pain 06/07/24 06/07/24 History sotalol 80 mg tablet 80 mg PO BID 06/07/24 06/07/24 History spironolactone 25 mg tablet 25 mg PO DAILY 06/07/24 06/07/24 History warfarin 2.5 mg tablet 2.5 mg PO UD 06/07/24 06/07/24 History Hospital Stay Data Consultations 06/07/24 21:02 ED Decision to Admit Stat 06/08/24 08:00 Consult Cardiology Routine Consult Pulmonology Routine 06/09/24 09:07 Consult Palliative Care Routine Diagnostic Imagining Performed Chest X-Ray 06/07/24 19:41 Exam(s): XR CXR 1 VIEW EXAM: XR Chest, 1 View CLINICAL HISTORY: Shortness of breath. TECHNIQUE: Frontal view of the chest. COMPARISON: Chest radiograph 05/03/2024 FINDINGS: Lungs: Bilateral airspace opacities are present. Pleural space: Small bilateral pleural effusions. No pneumothorax. Heart: Upper limits of normal cardiac silhouette. Mediastinum: Unremarkable. Normal mediastinal contour. Bones/joints: There are degenerative changes of the spine. No acute fracture. IMPRESSION: 1. Bilateral airspace opacities may represent pulmonary edema and/or atypical infection. 2. Small bilateral pleural effusions. Electronically signed by: Rachel Mcgovern MD 06/08/24 00:16 AM Discharge Instructions Given to Patient (Per Discharging Provider) pt Total Time Total Time Spent Total Time Spent (In Minutes): 60
--- NOTE | 2024-06-18 18:31 | Death Pronouncement Note ---
Date of Service June 18, 2024 Pronouncement Note Admission Date Admission Date: June 07, 2024 Date and Time of Date of : 06/18/24 Time of : 13:30 PCOD Preliminary cause of : Acute on chronic respiratory failure Contributing Factors (1) Acute and chronic respiratory failure with hypoxia: (2) Acute exacerbation of chronic obstructive pulmonary disease (COPD): (3) (HFpEF) heart failure with preserved ejection fraction: (4) End stage COPD: (5) Palliative care by specialist: (6) Need for comfort care: Additional Data Confirmation of : no pulse, no respirations, no heart sounds and pupils fixed and dilated Family: contacted Attending physician: Azalea Cain MD Was code activated?: No
== END 2024-06-18 15:28 | disposition expired | DRG 189 ==
LOC: ED 19:22 → SUATTDRO 21:48 → EDINP 21:48 → 4W 06-08 00:36 → 3E 06-12 18:57